=== PATIENT | male | born 1965 | race Caucasian/White ===

== ENCOUNTER → 2017-07-15 15:54 | Outpatient (CLI) | payer BC, SELFPAY ==
--- NOTE | 2017-07-15 12:27 | COLBX_PTH ---
PATIENT: DORIS ALLRED LOC: [facility] U#:[id number] AGE/SX: 59/M ROOM: RE07/15/[address]: Dr. Rick Butt MD : 1965 BED: DIS: SPEC #: [id number] RECD: 07/15/17 15:40 STATUS: DESIREE JB #: [id number] HOWARD: 07/15/17 12:[address]: Rick Butt DEPT: SURGICAL PATHOLOGY RECD BY: Stephanie Thomas ENTERED: 07/18/17 15:56 SP TYPE: COLON BX OTHR DR: FABIAN Tissues: Sigmoid colon biopsy Procedures: Surgery Specimen Level IV HEADER OPERATION: Colonoscopy with biopsies PRE-OP DIAGNOSIS: Screening / polyp TISSUE SUBMITTED: Sigmoid polyp biopsies, rule out adenoma MICROSCOPIC DIAGNOSIS Sigmoid colon polyp, biopsy: Fragments of hyperplastic polyp. AM:christine MICROSCOPIC DESCRIPTION Slides are reviewed. GROSS DESCRIPTION Received in fixative is one container labeled with the patient's name and designated sigmoid colon polyp biopsy. The specimen consists of two irregular fragments of light alanis soft tissue each measuring 0.2 x 0.2 x 0.1 cm. The specimen is totally submitted in one cassette. / SJ:christine 07/18/17 TC:5 CPT: 49930
== END ==
PROVIDERS: Visit Provider Internal Medicine Gastroenterology
DX: Z12.11 Encounter for screening for malignant neoplasm of colon (principal); K63.5 Polyp of colon
CPT/HCPCS: 88305

== ENCOUNTER → 2017-12-16 10:29 | Outpatient (CLI) | payer BC, SELFPAY ==
[2017-12-16 12:42] LABS: Anion Gap 9 (5-15); BUN 25 mg/dL (7-18); BUN/Creat Ratio 27.4 RATIO (10-20); Calcium,Total 8.9 mg/dL (8.5-10.1); Chloride 106 mmol/L (98-107); Creatinine, Serum 0.91 mg/dL (0.70-1.30); EST Glomerular Filtration Rate 93 mL/min (>60); Est Glom Filt Rate - Afr Amer 113 mL/min (>60); Glucose 90 mg/dL (74-106); Magnesium 2.3 mg/dL (1.6-2.6); Potassium 4.2 mmol/L (3.5-5.1); Sodium Level 139 mmol/L (136-145)
== END ==
PROVIDERS: Visit Provider Physician Assistant Medical
DX: E83.42 Hypomagnesemia (principal); R00.2 Palpitations
CPT/HCPCS: 36415; 80048; 83735

== ENCOUNTER → 2018-01-06 10:00 | Outpatient (CLI) | payer BC, SELFPAY | PROVIDERS: Family Provider Nurse Practitioner; PCP Nurse Practitioner; Referring Provider Nurse Practitioner; Visit Provider Nurse Practitioner | DX: R89.9 Unspecified abnormal finding in specimens from other organs, systems and tissues (principal) | CPT/HCPCS: 84132 ==

== ENCOUNTER → 2018-07-10 10:32 | Outpatient (CLI) | payer BC, SELFPAY ==
[2018-06-05 11:13] VITALS: BMI 32.1
--- NOTE | 2018-07-10 10:39 | RAD_ITS ---
STUDY: X-RAY - THORACIC SPINE REASON FOR EXAM: Male, 52 years old. Right-sided pain. No known injury TECHNIQUE: 3 view(s) of the thoracic spine were obtained. COMPARISON: None. FINDINGS: There is straightening of the normal thoracic kyphosis. There is no substantial scoliosis. Normal thoracic vertebrae and endplates. Normal disc space heights. The soft tissue structures are unremarkable. RAD/Thoracic Spine 3 Views IMPRESSION: Straightening of the thoracic spine which could be due to muscle spasm. No demonstrated acute fracture. Electronically Signed: Prateek Sauceda MD at 10:06 EDT Tel , Service support ,
--- NOTE | 2018-07-10 10:39 | RAD_ITS ---
STUDY: X-RAY CHEST REASON FOR EXAM: Male, 52 years old. Right-sided pain. TECHNIQUE: PA and lateral views of the chest. COMPARISON: December 21, 2016 FINDINGS: The lungs are clear and expanded. There is no demonstrated pleural abnormality. Normal size heart. Normal mediastinum and jordon. Normal visualized pulmonary arteries. Normal visualized aortic arch and descending thoracic aorta. Normal visualized thoracic spine. Normal visualized ribs, clavicles, and shoulders. There is no demonstrated abnormality of the visualized soft tissue structures of the upper abdomen. RAD/Chest PA and Lateral IMPRESSION: No acute cardiopulmonary process. Electronically Signed: Giselle Kay MD at 18:59 EDT Tel , Service support ,
== END ==
PROVIDERS: Family Provider Nurse Practitioner; PCP Nurse Practitioner; Referring Provider Nurse Practitioner Gerontology; Visit Provider Nurse Practitioner Gerontology
DX: M54.6 Pain in thoracic spine (principal); R05 Cough
CPT/HCPCS: 71046; 72072

== ENCOUNTER → 2019-08-13 14:37 | Outpatient (CLI) | payer BC, SELFPAY ==
[2018-06-05 11:13] VITALS: BMI 32.1
--- NOTE | 2019-08-13 14:40 | CT_ITS ---
STUDY: LOW DOSE CT LUNG CANCER SCREENING REASON FOR EXAM: Male, 53 years old. Nicotine dependence, smokes 2 cigars per day x 10 years, chronic bronchitis, hypertension, [place] 15 years ago, coronary stent x 1, 250lbs. RADIATION DOSAGE (If Supplied By Facility): CTDIvol = ( 4.02 ) mGy, DLP = ( 155.52 ) mGycm TECHNIQUE: No contrast was administered. Low dose technique was utilized (average mAS-38 and kVp 120). 1.25 mm axial source images with a slice interval of 1.25-mm were reconstructed in lung windows. 2.5 mm axial source images with a slice interval of 2.5-mm were reconstructed in lung windows. 5.0 mm axial source images with a slice interval of 5.0-mm were reconstructed in soft tissue windows. Nodule measured using lung windows on PACS and/or independent workstation with automated measurement of minimum and maximum diameter. Nodule measurement reported as average diameter rounded to the nearest whole number. Growth is defined as an increase ins size of greater than 1.5 mm. COMPARISON: None. NODULES: No nodules are seen. Aorta: Unremarkable. Coronary arteries: Coronary artery calcification. Mediastinal nodes: Calcified right hilar lymph nodes as well as the pretracheal lymph nodes. Other chest and abdominal findings: CT/Low Dose CT Lung Screening IMPRESSION: Lung-RADS category 2 - Continue annual screening with LDCT in 12 months. IMPORTANT NOTES FOR USE: ACR Lung-RADS Version 1.0 Assessment Categories Release Date: August 06, 2013 Category: Coded 0-4 bases on nodule(s) with highest degree of suspicion. Negative screen is defined as categories 1 and 2; a positive screen is defined as categories 3 and 4. Category 3 and 4A nodules that are unchanged on interval CT should be coded as category 2, and individuals returned to screening in 12 months. Category 4X: Category 3 or 4 nodules with additional imaging findings that increase the suspicion of lung cancer, such as spiculation, GGN that doubles in size in 1 year, enlarged lymph notes, etc. Category Modifiers: S (significant finding unrelated to lung cancer) and C (prior history of treated lung cancer) may be added to the 0-4 Lung-RADS Electronically Signed: Wild Bell, at 15:30 EDT , Service support ,
== END ==
PROVIDERS: PCP Nurse Practitioner; Visit Provider Nurse Practitioner
DX: F17.200 Nicotine dependence, unspecified, uncomplicated (principal)
CPT/HCPCS: G0297

== ENCOUNTER → 2021-01-07 00:46 | Outpatient (CLI) | payer BC, SELFPAY ==
[2021-01-07 01:39] LABS: Erythrocyte Sedimentation Rate < 1 mm/hr (0-20)
[2021-01-07 01:41] LABS: Absolute Lymphocyte Count 1.94 X10^3/uL (0.83-4.51); Absolute Neutrophil Count 3.8 X10^3/uL (2.0-7.7); Basophil# 0.05 X10^3/uL; Basophil% 0.7 % (0-1); Eosinophil# 0.23 X10^3/uL; Eosinophils% 3.4 % (0-5); Hematocrit 47.4 % (40-54); Hemoglobin 16.4 g/dL (13.0-16.5); Lymphocyte # 1.94 X10^3/ul (0.83-4.51); Mean Corp Hgb Conc 34.6 g/dL (32-36); Mean Corpuscular Hgb 32.3 pg (27.0-32.0); Mean Corpuscular Volume 93.5 fL (80-94); Mean Platelet Vol. 10.3 fl (6.2-12.0); Monocyte# 0.66 X10^3/uL; Monocyte% 9.9 % (0-10); NRBC Flagged by Analyzer 0 % (0-5); Neutrophil # 3.77 X10^3/uL (2.7-7.7); Neutrophil % 56.6 % (47-70); Platelet Count 227 K/mm3 (150-450); RBC Distribution Width CV 13.2 % (11.6-14.6); RBC Distribution Width SD 44.8 fl (35.1-43.9); Red Blood Count 5.07 M/mm3 (4.6-6.2); White Blood Count 6.7 K/mm3 (4.4-11.0)
[2021-01-07 01:57] LABS: ALB/GLOB Ratio 1.4 RATIO (0.9-2.4); AST(SGOT) 34 U/L (15-37); Alanine Aminotransfer ALT/SGPT 99 U/L (16-61); Albumin, Serum 4.1 g/dL (3.2-5.0); Alkaline Phosphatase 44 U/L (45-117); Anion Gap 10 (5-15); BUN 16 mg/dL (7-18); BUN/Creat Ratio 19.4 RATIO (10-20); CRP < 2.90 mg/L (0.0-3.0); Calcium,Total 8.9 mg/dL (8.5-10.1); Chloride 104 mmol/L (98-107); Creatinine, Serum 0.82 mg/dL (0.70-1.30); EST Glomerular Filtration Rate 103 mL/min (>60); Est Glom Filt Rate - Afr Amer 125 mL/min (>60); Globulin 2.9 g/dL (2.2-4.2); Glucose 132 mg/dL (74-106); Potassium 4.5 mmol/L (3.5-5.1); Sodium Level 136 mmol/L (136-145); Thyroid Stim Hormone (TSH) 2.53 uIU/mL (0.358-3.74)
[2021-01-09 09:49] LABS: ANTINUCLEAR ANTIBODIES DIRECT Negative (Negative)
== END ==
PROVIDERS: PCP Nurse Practitioner; Referring Provider Nurse Practitioner; Visit Provider Nurse Practitioner
DX: I73.00 Raynaud's syndrome without gangrene (principal)
CPT/HCPCS: 80053; 84443; 85025; 85652; 86038; 86140; 86225; 86235

== ENCOUNTER → 2022-12-22 | Outpatient (CLI) | payer BC, SELFPAY ==
[2022-12-22 21:21] LABS: Basophil# 0.05 X10^3/uL; Basophil% 0.7 % (0-1); Eosinophil# 0.11 X10^3/uL; Eosinophils% 1.4 % (0-5); Hematocrit 48.7 % (40-54); Hemoglobin 15.9 g/dL (13.0-16.5); Lymphocyte % 23.7 % (19-41); Mean Corp Hgb Conc 32.6 g/dL (32-36); Mean Corpuscular Hgb 30.6 pg (27.0-32.0); Mean Corpuscular Volume 93.7 fL (80-94); Mean Platelet Vol. 9.5 fl (6.2-12.0); Monocyte# 0.66 X10^3/uL; Monocyte% 8.7 % (0-10); NRBC Flagged by Analyzer 0 % (0-5); Neutrophil # 4.95 X10^3/uL (2.7-7.7); Neutrophil % 65.1 % (47-70); Platelet Count 251 K/mm3 (150-450); RBC Distribution Width CV 13.2 % (11.6-14.6); RBC Distribution Width SD 45.1 fl (35.1-43.9); White Blood Count 7.6 K/mm3 (4.4-11.0)
[2022-12-22 21:52] LABS: ALB/GLOB Ratio 1.4 RATIO (0.9-2.4); AST(SGOT) 28 U/L (15-37); Alanine Aminotransfer ALT/SGPT 70 U/L (16-61); Albumin, Serum 4.3 g/dL (3.2-5.0); Alkaline Phosphatase 42 U/L (45-117); Anion Gap 2 (5-15); BUN 14 mg/dL (7-18); BUN/Creat Ratio 14.6 RATIO (10-20); Chloride 106 mmol/L (98-107); Cholesterol 161 mg/dL (200); Creatinine, Serum 0.96 mg/dL (0.70-1.30); EST Glomerular Filtration Rate 86 mL/min (>60); Est Glom Filt Rate - Afr Amer 105 mL/min (>60); Glucose 114 mg/dL (74-106); High Density Lipoprotein 77 mg/dL; PSA,Total - Annual Screen 0.34 ng/mL (0.00-4.00); Potassium 5.1 mmol/L (3.5-5.1); Protein, Total 7.3 g/dL (6.4-8.2); Sodium Level 139 mmol/L (136-145); Triglycerides 72 mg/dL; Very Low Density Lipoprotein 14 mg/dL (5-40)
[2022-12-27 20:17] LABS: Thyroid Stim Hormone (TSH) 2.92 uIU/mL (0.358-3.74)
== END | disposition home or self-care (01) ==
PROVIDERS: PCP Nurse Practitioner; Referring Provider Nurse Practitioner; Visit Provider Nurse Practitioner
DX: I10 Essential (primary) hypertension (principal); E78.5 Hyperlipidemia, unspecified; R35.0 Frequency of micturition
CPT/HCPCS: 80053; 80061; 84153; 84443; 85025; G0103

== ENCOUNTER → 2024-02-22 | Outpatient (CLI) | payer BC, SELFPAY ==
[2024-02-22 22:31] LABS: Absolute Lymphocyte Count 1.57 X10^3/uL (0.83-4.51); Absolute Neutrophil Count 4.1 X10^3/uL (2.0-7.7); Basophil# 0.06 X10^3/uL; Basophil% 0.9 % (0-1); Eosinophil# 0.05 X10^3/uL; Eosinophils% 0.8 % (0-5); Hematocrit 44.5 % (40-54); Hemoglobin 15.2 g/dL (13.0-16.5); Lymphocyte # 1.57 X10^3/ul (0.83-4.51); Lymphocyte % 24.6 % (19-41); Mean Corp Hgb Conc 34.2 g/dL (32-36); Mean Corpuscular Hgb 31.3 pg (27.0-32.0); Mean Corpuscular Volume 91.6 fL (80-94); Mean Platelet Vol. 9.4 fl (6.2-12.0); Monocyte# 0.59 X10^3/uL; Monocyte% 9.3 % (0-10); NRBC Flagged by Analyzer 0 % (0-5); Neutrophil # 4.08 X10^3/uL (2.7-7.7); Neutrophil % 64.1 % (47-70); Platelet Count 230 K/mm3 (150-450); Red Blood Count 4.86 M/mm3 (4.6-6.2); White Blood Count 6.4 K/mm3 (4.4-11.0)
[2024-02-22 22:49] LABS: ALB/GLOB Ratio 1.4 RATIO (0.9-2.4); AST(SGOT) 25 U/L (15-37); Alanine Aminotransfer ALT/SGPT 50 U/L (16-61); Alkaline Phosphatase 42 U/L (45-117); Anion Gap 3 (5-15); BUN 15 mg/dL (7-18); BUN/Creat Ratio 16.2 RATIO (10-20); Calcium,Total 8.8 mg/dL (8.5-10.1); Chloride 108 mmol/L (98-107); Cholesterol 143 mg/dL (200); Creatinine, Serum 0.93 mg/dL (0.70-1.30); EST Glomerular Filtration Rate 89 mL/min (>60); Est Glom Filt Rate - Afr Amer 108 mL/min (>60); Globulin 2.8 g/dL (2.2-4.2); Glucose 106 mg/dL (74-106); High Density Lipoprotein 68 mg/dL; PSA,Total - Annual Screen 0.37 ng/mL (0.00-4.00); Potassium 4.8 mmol/L (3.5-5.1); Protein, Total 6.8 g/dL (6.4-8.2); Sodium Level 140 mmol/L (136-145); Triglycerides 51 mg/dL; Very Low Density Lipoprotein 10 mg/dL (5-40)
== END | disposition home or self-care (01) ==
PROVIDERS: Referring Provider Nurse Practitioner; Visit Provider Nurse Practitioner
DX: I10 Essential (primary) hypertension (principal); E83.42 Hypomagnesemia; E78.5 Hyperlipidemia, unspecified; I25.10 Atherosclerotic heart disease of native coronary artery without angina pectoris
CPT/HCPCS: 80053; 80061; 84153; 85025; G0103

== ENCOUNTER → 2024-06-11 | Outpatient (CLI) | payer BC, SELFPAY ==
--- NOTE | 2024-06-11 14:00 | MRI_ITS ---
PROCEDURE: SPINE LUMBAR (ROUTINE) REASON FOR EXAM: LUMBAR PAIN TECHNIQUE: Multisequence multiplanar MRI of the lumbar spine was performed without IV contrast. COMPARISON: 05/08/2024. FINDINGS: Vertebral body heights are preserved. No suspicious marrow signal abnormality. Grossly similar s shaped lumbar scoliosis. Similar trace grade 1 likely degenerative retrolisthesis at L3-L4. Conus medullaris terminates normally at the L1-L2 disc space. Unremarkable appearance of the cauda equina, allowing for crowding related to spinal canal stenoses as below. L1-2: Diffuse disc bulging with superimposed left subarticular and foraminal disc protrusion. Mild facet arthropathy. Mild/moderate focal spinal canal stenosis. Mild left foraminal stenosis. L2-3: Diffuse disc bulging with superimposed right predominantly paracentral, subarticular, and foraminal disc protrusion. Mild facet arthropathy. [id number] focal spinal canal stenosis with virtually complete effacement of CSF. Mild right foraminal stenosis. L3-4: Retrolisthesis as above with some disc uncovering. Diffuse disc bulging asymmetric to the left, with moderate loss of disc height. Severe focal spinal canal stenosis with complete effacement of CSF. Facet arthropathy and ligamentum flavum hypertrophy with tiny facet joint effusions. Moderate left and mild right foraminal stenosis. Complete effacement of left lateral recess and narrowing of right lateral recess. L4-5: Diffuse disc bulging asymmetric to the left. Facet arthropathy with tiny effusions. Mild focal spinal canal stenosis. Slight narrowing of the left lateral recess. Mild/moderate bilateral foraminal stenoses. L5-S1: No significant spinal canal or foraminal stenosis. Facet arthropathy with tiny effusion on the left. 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 MRI/Spine Lumbar (Routine) IMPRESSION: 1. Multilevel spondylosis as detailed, with spinal canal stenoses up to severe at L3-L4, and foraminal stenoses up to moderate on the left at that level. 2. Additional description as above. Reading Location: [facility]
== END | disposition home or self-care (01) ==
LOC: MRI 15:08
PROVIDERS: Referring Provider Student in an Organized Health Care Education/Training Program; Visit Provider Student in an Organized Health Care Education/Training Program
DX: M54.50 Low back pain, unspecified (principal)
CPT/HCPCS: 72148

== ENCOUNTER → 2024-10-19 | Outpatient (CLI) | payer BC, SELFPAY ==
--- OUTSIDE RECORDS SUMMARY | 2024-10-19 23:05 | XMS RPT_ITS | CCD ---
Author Organization [facility] Care Team Providers Care Surveillance Camera Technician Name Role Phone Chasity Verma Unavailable [facility] Unavailable Rex Calderon Unavailable Rick Butt Unavailable Fast, Frances A Unavailable Freddy Smith Unavailable Unavailable Manchak, Barbara Unavailable Unavailable Slarb, Briana Unavailable Unavailable Barbara Ascencio Unavailable Unavailable Unavailable Unavailable Arianna Shafer Unavailable Unavailable Chasity Verma Attending Unavailable Gavin, Frances A Referring Unavailable Chasity Verma Consulting Unavailable Ary Cornell Unavailable Unavailable Unavailable Unavailable FELIPE Forde Unavailable Unavailable Breann Garcia Unavailable Freddy Smith Unavailable Unavailable Manchaangel, Barbara Unavailable Unavailable Freddy Dodge Unavailable Unavailable Ciesa Chasity KINCAID Unavailable [facility] Unavailable Rex Calderon MD Unavailable Dr. Rick Butt Unavailable Fast DO, Frances A Unavailable Freddy Dodge LPN Unavailable Unavailable Manchak LESLEE, Barbara Unavailable Unavailable Slarb PURCHASING ASSOCIATE, Briana Unavailable Unavailable Breann Garcia MD Unavailable Barbara Ascencio Unavailable Unavailable Unavailable Unavailable Devin PELAEZ.Jordyn KINCAID Primary Care Provide r Robson Beck MD Unavailable [phone] Andrea Aguilar RN Unavailable Moreno RAMÍREZ, Man Torres Unavailable Chasity Verma Unavailable Frances Alonso DO Unavailable Breann Garcia MD Unavailable Devin BARREL TESTER AND DRAINER.[facility], Jordyn L Primary Care Provide r Robson Beck MD Unavailable Man Mayer MD Unavailable Devin BARREL TESTER AND DRAINER.[facility], Jordyn L Primary Care Provide r Robson Beck MD Unavailable [phone] Devin BARREL TESTER AND DRAINER.[facility], Jordyn Primary Care Provide r Robson Beck MD Unavailable Man Mayer MD Unavailable Devin BARREL TESTER AND DRAINER.[facility], Jordyn L Primary Care Provide r Unavailable Primary Care Provider Unavailabl e [facility], [facility] Primary Care Provider Unav ailable ANIA MOTTA Attending Unavailable ANIA MOTTA Referring Unavailable BILLY BARROS Attending Unavailable BILLY BARROS Referring Unavailable [facility], [facility] Primary Care Unavailable Devin BARREL TESTER AND DRAINER.Jordyn KINCAID L Primary Care Provide r ROBSON BECK Referring Unavailable ROBSON BECK Attending Unavailable BELTRAN, JORDYN L Primary Care Unavailable NITIN NUÑEZ Attending Unavailable BELTRAN, JORDYN L Primary Care Unavailable BELTRAN, JORDYN L Primary Care Unavailable Devin VIDEO PRODUCTION ASSISTANT, Jordyn Attending Unavailable Devin VIDEO PRODUCTION ASSISTANT, Jordyn Referring Unavailable Care Physician, No Primary Referring Unava ilable Zena Padron Attending Unavailable Care Physician, No Primary Primary Care Unava ilable Zena Padron Attending Unavailable Zena Padron Referring Unavailable Care Physician, No Primary Primary Care Unava ilable Domingo Rosa Attending Unavailable Zena Padron Attending Unavailable Jordyn Jorgensen Attending Provider Zena Chakraborty Attending Provider [phone] Shelley RAMÍREZ, Dr. Lane Attending Provider Zena Chakraborty Referring Provider [phone] Care Physician, No Primary Primary Care Provider Unavailable Allergies Allergy Classification Reported Allergen(s) Allergy Type Date of Onset Reaction(s) Facility Cholesterol Absorption Inhibitors (1 source) ezetimibe; Translations: [Zetia *ANTIHYPERLIPIDE MICS*] Drug Allergy [facility] Work Phone: (20 sources) ezetimibe; Translations: [Zetia *ANTIHYPERLIPIDE MICS*] Drug Allergy [facility] Work Phone: Comment on above: headache NEGATED: Highlighted row has been ruled out!Unclassified (1 source) Allergy to drug (finding) 3 [facility] Work Phone: NEGATED: Highlighted row has been ruled out! (1 source) Allergy to drug (finding) 3 [facility] Work Phone: Medications Current Medications Medication Drug Class(es) Dates Sig (Normalized) Sig (Original) acetaminophen 325 mg / HYDROcodone bitartrate 5 mg oral tablet (3 sources) Opioid Agonist Start: 02-07-2023 End: 02-14-2023 take 1-1.5 tablets by mouth every six hours as needed for pain HYDROcodone-acet aminophen ([place]) 5-325 MG tablet Take 1-1.5 tablets by mouth every 6 hours as needed for severe pain (7-10) for up to 7 days. Take medication at least 6-8 hours before driving/operatin g machinery. 30 tablet 0 02/07/2023 02/14/2023 Active aspirin 81 mg delayed release oral tablet (20 sources) Platelet Aggregation Inhibitor, Nonsteroidal Anti-inflammatory Drug Start: 10-21-2021 End: 10-21-2022 take 1 tablet by mouth once daily aspirin, enteric coated (ECOTRIN LOW STRENGTH) 81 mg EC tablet Take 1 tablet by mouth once daily. 90 tablet 3 10/21/2021 Active Start: 08-27-2021 End: 10-21-2021 take 1 tablet by mouth once daily at bedtime ASPIRIN 81 MG TAB Take 81 mg by mouth daily at bedtime. 0 08/27/2021 10/21/2021 Discontinued Start: 06-28-2016 take 1 tablet by lamin th once daily Aspirin 81 MG tablet,chewable Active 81 mg PO DAILY June 28, 2016 12:00am Start: 06-02-2006 End: 12-21-2016 Comment on above: This order discontin ued per [facility]. Take one(1) tablet d aily. Take by mouth daily at bedtime. Take 81 mg by mouth daily at bedtime. Take 1 tablet by lamin th once daily. atomoxetine 10 mg oral capsule (20 sources) Norepinephrine Reuptake Inhibitor Start: 09-10-19 take 3 capsules by mouth once daily atomoxetine (STRATTERA) 10 mg capsule Take 30 mg by mouth once daily. 09/09/2021 Active Start: 08-11-2021 End: 11-16-2021 Atomoxetine (Strattera) 10 m g capsule Discontinued 10 mg PO EVERY MORNING August 11, 2021 12:00am November 16, 2021 6:58pm Take 10 mg for 2 weeks and then 20 mg for 2 weeks Start: 12-05-2020 End: 06-29-2021 take 1 capsule by mouth once daily Atomoxetine 40 mg capsule Discontinued 40 mg PO DAILY December 05, 2020 4:38pm June 29, 2021 6:38pm Start: 08-09-2019 End: 12-28-2019 take 1 capsule by mouth once daily Atomoxetine (Strattera) 40 mg capsule Discontinued 40 mg PO DAILY November 21, 2019 12:00am December 28, 2019 4:13pm Start: 05-02-2018 End: 11-21-2019 take 1 capsule by mouth once daily Atomoxetine (Strattera) 18 mg capsule Discontinued 18 mg PO DAILY June 05, 2018 1:00am November 21, 2019 6:50pm Start: 04-10-2018 End: 05-02-2018 Start: 04-10-2018 End: 05-02-2018 Start: 04-10-2018 End: 05-02-2018 Start: 04-10-2018 Strattera 18 M G Oral Capsule 1 (one) Capsule in am for 2 weeks for 0 days Quantity: 14 {Capsule} Refills: 0 Ordered: 10-Apr-2018 Breann Garcia MD Start : 10-Apr-2018 Active Start: 02-18-2014 End: 01-21-2015 take 1 capsule by mouth once daily STRATTERA, 40MG (Oral Capsule) 1 Capsule daily for 0 days Quantity: 30 {Capsule} Refills: 4 Ordered: 21-Jan-2015 Norma STAHLBriana Start : 18-Feb-2014 End : 21-Jan-2015 Discontinued Comments: 08-28-13 called to Randi in [facility] Start: 11-13-2012 End: 04-26-2013 Comment on above: once wean up 08-28-13 called to Hope persaud in [facility] Take 30 mg by mouth once daily. clopidogrel 75 mg oral tablet (20 sources) [id number] Platelet Inhibitor Start: 06-29-19 End: 04-23-19 take 1 tablet by mouth once daily Clopidogrel 75 mg tablet Active 75 mg PO DAILY March 06, 2024 4:38pm Comment on above: Take 1 tablet by lamin once daily. Take 75 mg by mouth once daily. cyclobenzaprine hydrochloride 5 mg oral tablet (20 sources) Muscle Relaxant Start: 10-24-19 End: 03-06-20 take 1 tablet by mouth three times daily as needed for muscle spasms Cyclobenzaprine 5 mg tablet Active 5 mg PO THREE TIMES A DAY as needed for muscle spasm March 06, 2024 4:39pm Start: 12-05-2020 End: 06-29-2021 take 1 tablet by mouth three times daily as needed for muscle spasms Cyclobenzaprine 5 mg tablet Discontinued 5 mg PO THREE TIMES A DAY as needed for muscle spasm December 05, 2020 12:00am June 29, 2021 6:38pm Start: 07-10-2018 End: 07-24-2018 Start: 09-09-2015 End: 04-28-2016 DULoxetine 60 mg delayed release oral capsule (20 sources) Serotonin and Norepinephrine Reuptake Inhibitor Start: 07-29-2022 End: 11-29-2023 take 1 capsule by mouth once daily Duloxetine 60 mg capsule,delayed release(DR/EC) Active 60 mg PO DAILY November 29, 2023 4:01pm Start: 12-31-2021 End: 07-29-2022 take 1 capsule by mouth once daily Duloxetine 40 mg capsule,delayed release(DR/EC) Discontinued 40 mg PO DAILY December 31, 2021 12:00am July 29, 2022 3:37pm Start: 12-18-2021 End: 12-31-2021 take 1 capsule by mouth once daily Duloxetine 60 mg capsule,delayed release(DR/EC) Discontinued 60 mg PO DAILY December 18, 2021 12:00am December 31, 2021 3:12pm Start: 11-16-2021 End: 12-18-2021 take 1 capsule by mouth once daily Duloxetine 30 mg capsule,delayed release(DR/EC) Discontinued 30 mg PO daily November 16, 2021 12:00am December 18, 2021 4:28pm hydrOXYzine hydrochloride 10 mg oral tablet (1 source) Antihistamine Start: 07-29-2023 take 1 tablet by mouth three to four times daily as needed for anxiety Hydroxyzine Hcl 10 mg tablet Active 10 mg PO 3 to 4 times per day as needed for anxiety July 29, 2023 12:00am levothyroxine sodium 0.025 mg oral tablet (20 sources) l-Thyroxine Start: 04-05-2018 End: 11-29-2023 take 1 tablet by mouth once daily Levothyroxine 25 mcg tablet Active 25 ug PO DAILY November 29, 2023 4:03pm Comment on above: Take same time daily on empty stomach upon awakening Take 25 mcg by mouth daily before breakfast. Take 25 mcg by mouth daily at bedtime. [The details of the medication are not available because there are pending changes by a home health clinician.] lidocaine 0.04 mg/mg medicated patch (20 sources) Antiarrhythmic, Amide Local Anesthetic Start: 09-06-2021 lidocaine (SALONPAS) 4 % patch Apply 1 Patch as directed once daily. Cut in half and apply to each side of midsternal incision - Remove patch after 12 hours. 7 Patch 09/06/2021 Active Comment on above: Apply 1 Patch as dir ected once daily. Cut in half and apply to each side of midsternal incision - Remove patch after 12 hours. LORazepam 0.5 mg oral tablet (20 sources) Benzodiazepine Start: 11-16-2021 End: 11-29-2023 take 2 tablets by mouth once daily as needed for anxiety Lorazepam 0.5 mg tablet Active 1 mg PO DAILY NEEDED as needed for Anxiety 60 November 29, 2023 4:01pm Start: 11-16-2021 End: 11-08-2022 take 1 mg by mouth once daily as needed Lorazepam Active 1 MG PO DAILY NEEDED 60 November 08, 2022 8:12pm Start: 06-29-2021 End: 11-16-2021 take 1 tablet by mouth once daily as needed for anxiety Lorazepam 0.5 mg tablet Discontinued 0.5 mg PO DAILY NEEDED as needed for Anxiety June 29, 2021 6:41pm November 16, 2021 7:14pm Start: 06-28-2016 End: 11-21-2019 take 1 tablet by mouth once daily as needed for anxiety Lorazepam 0.5 MG tablet Discontinued 0.5 mg PO DAILY NEEDED as needed for Anxiety June 28, 2016 12:00am November 21, 2019 6:51pm Start: 06-28-2016 End: 12-16-2017 take 1 tablet by mouth once daily as needed for anxiety Lorazepam 1 MG tablet Discontinued 1 mg PO DAILY NEEDED as needed for Anxiety June 28, 2016 12:00am December 16, 2017 10:07am Comment on above: fifteen, Oarrs run Take 0.5 mg by mouth once daily as needed. [The details of the medication are not available because there are pending changes by a home health clinician.] Take 0.5 mg by mouth once daily as needed (anxiety). Do not start before September 09, 2021. magnesium oxide 400 mg oral tablet (20 sources) Start: 09-06-2021 take 1 tablet by mouth once daily Magnesium Oxide 400 mg magnesium tablet Active 400 mg PO daily April 24, 2024 1:00am Comment on above: Take 1 tablet by lamin th once daily. 24 hr metoprolol succinate 25 mg extended release oral tablet (20 sources) beta-Adrenergic Annette Start: 04-23-2024 take 1 tablet by mouth once daily Metoprolol Succinate 25 mg tablet extended release 24 hr Active 25 mg PO daily April 24, 2024 4:36pm Start: 12-18-2021 End: 04-24-2024 take 1 tablet by mouth twice daily Metoprolol Succinate 25 mg tablet extended release 24 hr Discontinued 25 mg PO TWICE A DAY 90 February 22, 2024 6:19pm April 24, 2024 4:36pm Start: 11-16-2021 End: 12-18-2021 take 1 tablet by mouth once daily Metoprolol Succinate 25 mg tablet extended release 24 hr Discontinued 25 mg PO DAILY November 16, 2021 12:00am December 18, 2021 4:35pm Start: 10-13-2021 End: 04-23-2024 take 0.5 tablet by mouth twice daily metoprolol tartrate, short acting, (LOPRESSOR) 25 mg tablet Take 0.5 tablets by mouth twice daily. 90 tablet 3 11/23/2022 04/23/2024 Discontinued Start: 09-05-2021 End: 10-13-2021 take 0.5 tablet by mouth every eight hours metoprolol tartrate, short acting, (LOPRESSOR) 25 mg tablet Take 0.5 tablets by mouth every 8 hours. 60 tablet 1 09/05/2021 10/13/2021 Discontinued (Adjust Sig - Block E-Cancel) Start: 11-21-2019 End: 12-18-2021 take 1 tablet by mouth once daily Metoprolol Succinate 50 mg tablet extended release 24 hr Discontinued 50 mg PO DAILY December 05, 2020 4:39pm December 18, 2021 4:32pm Start: 09-09-2018 take 1 tablet by lamin th once daily Toprol XL 50 MG Oral Tablet Extended Release 24 Hour 1 (one) Tablet daily for 30 days Quantity: 30 {Tablet} Refills: 2 Ordered: 09-Sep-2018 Chasity Verma CNP, CNP, Mary E Start : 09-Sep-2018 Active Comments: increased dose on 01/02/18 Start: 08-04-2018 take 1 tablet by lamin th once daily Toprol XL 50 MG Oral Tablet Extended Release 24 Hour 1 (one) Tablet daily for 30 days Quantity: 30 {Tablet} Refills: 2 Ordered: 04-Aug-2018 Chasity Verma CNP, CNP, Mary E Start : 04-Aug-2018 Active Comments: increased dose on 01/02/18 Start: 01-06-2018 take 1 tablet by lamin th once daily Toprol XL 50 MG Oral Tablet Extended Release 24 Hour 1 (one) Tablet daily for 30 days Quantity: 30 {Tablet} Refills: 2 Ordered: 06-Jan-2018 Chasity Verma CNP, CNP, Mary E Start : 06-Jan-2018 Active Comments: increased dose on 01/02/18 Start: 06-28-2016 End: 11-21-2019 take 1 tablet by mouth once daily Metoprolol Succinate 25 MG tablet extended release 24 hr Discontinued 25 mg PO DAILY June 28, 2016 12:00am November 21, 2019 7:04pm Comment on above: increased dose on Take 50 mg by mouth once daily. Take 1 tablet by lamin th once daily. Take 0.5 tablets by mouth every 8 hours. Take 0.5 tablets by mouth twice daily. Multiple Vitamin (multivitamin) capsule (10 sources) Multiple Vitamin (multivitamin) capsule daily. 0 Active nitroglycerin 0.4 mg sublingual tablet (20 sources) Nitrate Vasodilator Start: 04-01-20 Nitroglycerin 0.4 mg tablet, sublingual Active 0.4 mg SL Q5M as needed July 16, 2021 12:00am do not exceed 3 doses per episode Comment on above: Dissolve 1 tablet un yolanda the tongue every 5 minutes as needed for chest pain. pantoprazole 40 mg delayed release oral tablet (20 sources) Proton Pump Inhibitor Start: 09-06-19 End: 11-29-19 take 1 tablet by mouth once daily Pantoprazole 40 mg tablet,delayed release (DR/EC) Active 40 mg PO DAILY November 29, 2023 4:01pm Start: 05-25-2012 End: 05-25-2012 Start: 02-27-2009 End: 03-11-2009 Comment on above: Take 1 tablet by lamin th once daily. predniSONE 10 mg oral tablet (20 sources) Start: 04-24-2024 take 2 tablets by mouth twice daily as needed for pain, then take 1 tablet by mouth twice daily as needed for pain, then take 0.5 tablet by mouth once daily as needed for pain Prednisone 10 mg tablet Active 20 mg PO TWICE A DAY as needed for back pain 08 08April 24, 2024 4:33pm 2 po bid 4D,1 po bid for 4 D, 1 po qd for 4D 1/2 po qd for2 D Start: 03-06-2024 End: 03-10-2024 take 2 tablets by mouth twice daily as needed for pain, then take 1 tablet by mouth twice daily as needed for pain, then take 0.5 tablet by mouth once daily as needed for pain Prednisone 10 mg tablet Discontinued 20 mg PO TWICE A DAY as needed for back pain 30 4 March 06, 2024 1:00am March 09, 2024 1:00am March 10, 2024 1:14am 2 po bid 4D,1 po bid for 4 D, 1 po qd for 4D 1/2 po qd for2 D Start: 10-24-2023 End: 11-29-2023 take 2 tablets by mouth once daily Prednisone 20 mg tablet Discontinued 40 mg PO DAILY October 24, 2023 7:37pm November 29, 2023 4:04pm Start: 09-20-2022 End: 09-24-2022 take 2 tablets by mouth twice daily as needed, then take 1 tablet by mouth twice daily as needed, then take 0.5 tablet by mouth once daily as needed Prednisone 10 mg tablet Discontinued 20 mg PO TWICE A DAY as needed for poison meliza 30 September 20, 2022 12:00am September 23, 2022 12:00am September 24, 2022 12:05am 2 po bid 4D,1 po bid for 4 D, 1 po qd for 4D 1/2 po qd for2 D Start: 09-20-2022 End: 09-24-2022 Prednisone Discontinued 20 M G PO TWICE A DAY 30 September 20, 2022 12:00am September 24, 2022 12:05am 2 po bid 4D,1 po bid for 4 D, 1 po qd for 4D 1/2 po qd for2 D Start: 08-09-2022 End: 09-20-2022 take 2 tablets by mouth once daily Prednisone 20 mg tablet Discontinued 40 mg PO DAILY August 09, 2022 12:00am September 20, 2022 5:53pm Start: 08-09-2022 End: 09-20-2022 take 40 mg by mouth once daily Prednisone Discontinued 40 MG PO DAILY August 09, 2022 12:00am September 20, 2022 5:53pm Start: 12-28-2019 End: 01-05-2021 take 2 tablets by mouth once daily Prednisone 20 mg tablet Discontinued 40 mg PO DAILY December 05, 2020 12:00am January 05, 2021 6:12pm Start: 12-28-2019 End: 01-05-2021 take 40 mg by mouth once daily Prednisone Discontinued 40 MG PO DAILY December 05, 2020 12:00am January 05, 2021 6:12pm Start: 05-15-2019 End: 06-18-2019 Start: 06-05-2018 End: 06-15-2018 take 2 tablets by mouth once daily Prednisone 10 mg tablet Discontinued 20 mg PO DAILY 28 01June 05, 2018 1:00am June 14, 2018 1:00am June 15, 2018 1:08am Start: 06-05-2018 End: 06-15-2018 take 20 mg by mouth once daily Prednisone Discontinued 20 MG PO DAILY 28 01June 05, 2018 1:00am June 15, 2018 1:08am Start: 04-25-2018 End: 07-10-2018 PredniSONE 10 MG Oral Tablet 1 (one) Tablet bid x 3 days for 0 days Quantity: 6 {Tablet} Refills: 0 Ordered: 10-Jul-2018 Freddy Smith Start : 25-Apr-2018 End : 10-Jul-2018 Inactive Comments: with food in am Start: 11-23-2017 End: 01-02-2018 PredniSONE 10 MG Oral Tablet 1 (one) Tablet bid x 3 days for 0 days Quantity: 6 {Tablet} Refills: 0 Ordered: 02-Jan-2018 Ary Cornell LPN Start : 23-Nov-2017 End : 02-Jan-2018 Inactive Comments: with food in am Start: 11-03-2016 End: 11-10-2016 Start: 11-03-2016 End: 11-10-2016 take 3 tablets by mouth once daily at mealtime PredniSONE 10 MG Oral Tablet 3 (three) Tablet daily for 7 days Quantity: 21 {Tablet} Refills: 0 Ordered: 03-Nov-2016 Chasity Verma CNP E Luci KINCAID, Mallory Start : 03-Nov-2016 End : 10-Nov-2016 Inactive Comments: with food Start: 11-13-2012 End: 11-13-2012 Start: 11-13-2012 End: 11-13-2012 take 2 tablets by mouth once daily, then take 1 tablet by mouth once daily, then take 0.5 tablet by mouth once daily PREDNISONE, 20MG (Oral Tablet) 1 Tablet uad for 0 days Refills: 0 Ordered: 13-Nov-2012 Frances Alonso DO Start : 13-Nov-2012 End : 13-Nov-2012 Discontinued Comments: 2 a d for 3 d, 1 a d for 3d, 1/2 a d for3 d Start: 04-07-2009 End: 04-10-2009 Start: 04-07-2009 End: 04-10-2009 PREDNISONE (BRENNAN), 10MG (Oral Tablet) 2 (two) Tablet pills for 3 days Refills: 0 Ordered: 07-Apr-2009 Fast DO, Frances Torres Start : 07-Apr-2009 End : 10-Apr-2009 Inactive Comment on above: with food in am 2 a d for 3 d, 1 a d for 3d, 1/2 a d for3 d with food ramipril 10 mg oral capsule (20 sources) Angiotensin Converting Enzyme Inhibitor Start: take 1 capsule by mouth once daily ramipril (ALTACE) 5 mg capsule Indications: Essential hypertension Take 1 capsule by mouth once daily. 90 capsule 3 07/19/2022 Active Start: 06-25-2020 End: 07-16-2021 take 2 capsules by mouth once daily ramipril (ALTACE) 10 mg capsule Indications: Essential hypertension Take 2 capsules by mouth once daily. 60 capsule 5 06/25/2020 07/16/2021 Discontinued Start: 01-03-2020 End: 10-07-2023 take 1 capsule by mouth once daily Ramipril 10 mg capsule Active 10 mg PO DAILY 90 October 07, 2023 2:53pm Start: 07-04-2019 take 1 capsule by mo [facility] once daily Ramipril 10 MG Oral Capsule 1 (one) Capsule daily for 0 days Quantity: 30 {Capsule} Refills: 5 Ordered: 04-Jul-2019 Chasity Verma CNP, CNP, Mary E Start : 04-Jul-2019 Active Start: 01-13-2019 take 1 capsule by mo uth once daily Ramipril 10 MG Oral Capsule 1 (one) Capsule daily for 0 days Quantity: 30 {Capsule} Refills: 5 Ordered: 13-Jan-2019 Chasity Verma CNP, CNP, Mary E Start : 13-Jan-2019 Active Start: 06-28-2016 End: 12-05-2020 take 1 capsule by mouth once daily Ramipril 10 MG capsule Discontinued 10 mg PO DAILY June 28, 2016 12:00am December 05, 2020 4:42pm Start: 11-12-2015 End: 12-12-2015 Comment on above: Take 2 capsules by m outh once daily. Take 1 capsule by mo uth once daily. tamsulosin hydrochloride 0.4 mg oral capsule (1 source) alpha-Adrenergic Annette Start: 4 take 1 capsule by mouth once daily Tamsulosin 0.4 mg capsule Active 0.4 mg PO DAILY July 29, 2023 12:00am Completed/Discontinued Medications Medication Drug Class(es) Dates Sig (Normalized) Sig (Original) 200 actuat albuterol 0.09 mg/actuat dry powder inhaler (20 sources) beta2-Adrenergic Agonist Start: 05-15-2019 Start: 05-15-2019 take 2 puff(s) by in halation three times daily ProAir RespiClick 108 (90 Base) MCG/ACT Inhalation Aerosol Powder Breath Activated 2 (two) Puff tid or qid for 0 days Quantity: 1 {Inhaler} Refills: 0 Ordered: 15-May-2019 Chasity Verma CNP, CNP, Mary E Start : 15-May-2019 Active Start: 04-25-2018 take 2 puff(s) by in halation three times daily ProAir RespiClick 108 (90 Base) MCG/ACT Inhalation Aerosol Powder Breath Activated 2 (two) Puff Puff tid for 0 days Quantity: 1 {Inhaler} Refills: 0 Ordered: 25-Apr-2018 Freddy Smith Start : 25-Apr-2018 Active Start: 11-19-2016 End: 09-06-2017 Start: 11-19-2016 End: 09-06-2017 take 2 puff(s) by inhalation three times daily ProAir HFA 108 (90 Base) MCG/ACT Inhalation Aerosol Solution 2 (two) Puff tid for 0 days Quantity: 1 {Inhaler} Refills: 3 Ordered: 06-Sep-2017 Briana Green LPN Start : 19-Nov-2016 End : 06-Sep-2017 Inactive Start: 01-27-2009 End: 03-27-2010 Start: 01-27-2009 End: 03-27-2010 ALBUTEROL SULFATE HFA, 108 ( 90 Base)MCG/ACT (Inhalation Aerosol Solution) 2 (two) Aerosol Soln qid prn for 0 days Quantity: 1 {Aerosol_Soln} Refills: 1 Ordered: 27-Jan-2009 FELIPE Forde Start : 27-Jan-2009 End : 27-Mar-2010 Discontinued Comments: This order discontinued per [facility]. Start: 05-31-2008 End: 03-27-2010 Start: 05-31-2008 End: 03-27-2010 PROVENTIL HFA, 108 (90 Base)MCG/ACT (Inhalation Aerosol Solution) 2 (two) Aerosol Soln qid prn for 0 days Quantity: 1 {Aerosol_Soln} Refills: 1 Ordered: 27-Mar-2010 FELIPE Forde LPN Start : 02-Jan-2010 End : 27-Mar-2010 Inactive Comment on above: This order discontin ued per [facility]. ALBUTEROL SULFATE HFA, 108 (90 Base)MCG/ACT (Inhalation Aerosol Solution) (8 sources) Start: 01-28-20 End: 03-27-20 10 ALBUTEROL SULFATE HFA, 108 (90 Base)MCG/ACT (Inhalation Aerosol Solution) 2 (two) Aerosol Soln qid prn for 0 days Quantity: 1 {Aerosol_Soln} Refills: 1 Ordered: 27-Jan-2009 FELIPE Forde LPN Start : 27-Jan-2009 End : 27-Mar-2010 Discontinued Comments: This order discontinued per -. Comment on above: This order discontin ued per -. amLODIPine 5 mg oral tablet (2 sources) Dihydropyridine Calcium Channel Annette Start: 01-07-20 End: 06-30-19 take 1 tablet by mouth twice daily Amlodipine 5 mg tablet Discontinued 5 mg PO TWICE A DAY January 06, 2021 12:00am June 29, 2021 6:37pm amoxicillin 875 mg / clavulanate 125 mg oral tablet (20 sources) Penicillin-class Antibacterial Start: 02-22-20 End: 03-06-20 Amoxicillin-Pot Clavulanate 875-125 mg tablet Discontinued 1 {tbl} PO TWICE A DAY February 22, 2024 1:00am March 06, 2024 4:39pm Start: 09-26-2023 End: 10-24-2023 Amoxicillin-Pot Clavulanate 875-125 mg tablet Discontinued 1 {tbl} PO TWICE A DAY September 26, 2023 4:50pm October 24, 2023 7:45pm Start: 04-19-2023 End: 06-22-2023 Amoxicillin-Pot Clavulanate 875-125 mg tablet Discontinued 1 {tbl} PO TWICE A DAY April 19, 2023 1:00am June 22, 2023 6:32pm Start: 01-04-2023 End: 01-11-2023 Amoxicillin-Pot Clavulanate 875-125 mg tablet Discontinued 1 {tbl} PO TWICE A DAY January 04, 2023 5:51pm January 11, 2023 12:33pm Start: 06-03-2022 End: 06-29-2022 Amoxicillin-Pot Clavulanate 875-125 mg tablet Discontinued 1 {tbl} PO TWICE A DAY June 03, 2022 1:00am June 29, 2022 11:37am Start: 06-03-2022 End: 06-29-2022 take 1 tablet by mouth twice daily Amoxicillin-Pot Clavulanate Discontinued 1 TABLET PO TWICE A DAY June 03, 2022 1:00am June 29, 2022 11:37am Start: 01-05-2021 End: 06-29-2021 Amoxicillin-Pot Clavulanate 875-125 mg tablet Discontinued 1 {tbl} PO TWICE A DAY January 05, 2021 12:00am June 29, 2021 6:37pm Start: 01-05-2021 End: 06-29-2021 take 1 tablet by mouth twice daily Amoxicillin-Pot Clavulanate Discontinued 1 TABLET PO TWICE A DAY January 05, 2021 12:00am June 29, 2021 6:37pm Start: 12-28-2019 End: 12-05-2020 Amoxicillin-Pot Clavulanate 875-125 mg tablet Discontinued 1 {tbl} PO TWICE A DAY December 28, 2019 4:14pm December 05, 2020 4:36pm Start: 12-28-2019 End: 12-05-2020 take 1 tablet by mouth twice daily Amoxicillin-Pot Clavulanate Discontinued 1 TABLET PO TWICE A DAY December 28, 2019 4:14pm December 05, 2020 4:36pm Start: 06-05-2018 End: 11-21-2019 Amoxicillin-Pot Clavulanate 875-125 mg tablet Discontinued 1 {tbl} PO TWICE A DAY June 05, 2018 1:00am November 21, 2019 6:49pm Start: 06-05-2018 End: 11-21-2019 take 1 tablet by mouth twice daily Amoxicillin-Pot Clavulanate Discontinued 1 TABLET PO TWICE A DAY June 05, 2018 1:00am November 21, 2019 6:49pm Start: 11-11-2017 End: 12-16-2017 Amoxicillin-Pot Clavulanate 875-125 mg tablet Discontinued 1 {tbl} PO TWICE A DAY November 11, 2017 12:00am December 16, 2017 10:06am Start: 11-11-2017 End: 12-16-2017 take 1 tablet by mouth twice daily Amoxicillin-Pot Clavulanate Discontinued 1 TABLET PO TWICE A DAY November 11, 2017 12:00am December 16, 2017 10:06am Start: 11-03-2016 End: 11-17-2016 Start: 11-03-2016 End: 11-17-2016 take 1 tablet by mouth twice daily Augmentin 875-125 MG Oral Tablet 1 (one) Tablet two times daily for 14 days Quantity: 28 {Tablet} Refills: 0 Ordered: 03-Nov-2016 Chasity Verma CNP, CNP, Mary E Start : 03-Nov-2016 End : 17-Nov-2016 Inactive Start: 11-30-2013 End: 03-22-2014 Start: 11-30-2013 End: 03-22-2014 take 1 tablet by mouth twice daily AMOXICILLIN-POT CLAVULANATE, 875-125MG (Oral Tablet) 1 (one) Tablet bid for 0 days Quantity: 20 {Tablet} Refills: 0 Ordered: 22-Mar-2014 Shannon Caicedo LPN Start : 30-Nov-2013 End : 22-Mar-2014 Discontinued ASA QD (20 sources) ASA QD Inactive atorvastatin 80 mg oral tablet (20 sources) HMG-CoA Reductase Inhibitor Start: 07-29-2022 End: 07-29-2023 Atorvastatin 80 mg tablet Discontinued 40 mg PO AT BEDTIME July 29, 2022 3:38pm July 29, 2023 3:53pm Start: 07-29-2022 take 40 mg by mouth at bedtime Atorvastatin Active 40 MG PO AT BEDTIME July 29, 2022 3:38pm Start: 07-19-2022 End: 04-23-2024 take 1 tablet by mouth once daily Atorvastatin 40 mg tablet Active 40 mg PO DAILY July 29, 2023 12:00am Start: 06-29-2021 End: 06-29-2021 take 2 tablets by mouth at bedtime Atorvastatin 40 mg tablet Discontinued 80 mg PO AT BEDTIME June 29, 2021 6:38pm June 29, 2021 6:40pm Start: 06-29-2021 End: 06-29-2021 take 80 mg by mouth at bedtime Atorvastatin Discontinu ed 80 MG PO AT BEDTIME June 29, 2021 6:38pm June 29, 2021 6:40pm Start: 06-29-2021 End: 07-29-2022 take 1 tablet by mouth at bedtime Atorvastatin 80 mg tablet Discontinued 80 mg PO AT BEDTIME June 29, 2021 12:00am July 29, 2022 3:39pm Start: 12-05-2020 End: 06-29-2021 take 1 tablet by mouth at bedtime Atorvastatin 40 mg tablet Discontinued 40 mg PO AT BEDTIME December 05, 2020 4:39pm June 29, 2021 6:39pm Start: 10-06-2020 End: 08-04-2018 Start: 10-06-2020 End: 08-04-2018 Start: 05-05-2020 End: 08-04-2018 take 1 tablet by mouth once daily Lipitor 40 MG Oral Tablet 1 (one) Tablet QD for 30 days Quantity: 30 {Tablet} Refills: 3 Ordered: 05-May-2020 Chasity Verma CNP, CNP, Mary E Start : 05-May-2020 End : 04-Aug-2018 Active Start: 05-05-2020 End: 08-04-2018 take 1 tablet by mouth once daily Lipitor 40 MG Oral Tablet 1 (one) Tablet QD for 30 days Quantity: 30 {Tablet} Refills: 3 Ordered: 05-May-2020 Chasity Verma CNP, CNP, Mary E Start : 05-May-2020 End : 04-Aug-2018 Active Start: 01-03-2020 End: 08-04-2018 take 1 tablet by mouth once daily Lipitor 40 MG Oral Tablet 1 (one) Tablet QD for 30 days Quantity: 30 {Tablet} Refills: 3 Ordered: 03-Jan-2020 Chasity Verma CNP, CNP, Mary E Start : 03-Jan-2020 End : 04-Aug-2018 Active Start: 01-03-2020 End: 08-04-2018 take 1 tablet by mouth once daily Lipitor 40 MG Oral Tablet 1 (one) Tablet QD for 30 days Quantity: 30 {Tablet} Refills: 3 Ordered: 03-Jan-2020 Chasity Verma CNP, CNP, Mary E Start : 03-Jan-2020 End : 04-Aug-2018 Active Start: 01-03-2020 End: 08-04-2018 take 1 tablet by mouth once daily Lipitor 40 MG Oral Tablet 1 (one) Tablet QD for 30 days Quantity: 30 {Tablet} Refills: 3 Ordered: 03-Jan-2020 Chasity Verma CNP, CNP, Mary E Start : 03-Jan-2020 End : 04-Aug-2018 Active Start: 08-09-2019 End: 08-04-2018 take 1 tablet by mouth once daily Lipitor 40 MG Oral Tablet 1 (one) Tablet QD for 30 days Quantity: 30 {Tablet} Refills: 3 Ordered: 09-Aug-2019 Chasity Verma CNP, CNP, Mary E Start : 09-Aug-2019 End : 04-Aug-2018 Active Start: 08-09-2019 End: 08-04-2018 take 1 tablet by mouth once daily Lipitor 40 MG Oral Tablet 1 (one) Tablet QD for 30 days Quantity: 30 {Tablet} Refills: 3 Ordered: 09-Aug-2019 Chasity Verma CNP, CNP, Mary E Start : 09-Aug-2019 End : 04-Aug-2018 Active Start: 08-09-2019 End: 08-04-2018 take 1 tablet by mouth once daily Lipitor 40 MG Oral Tablet 1 (one) Tablet QD for 30 days Quantity: 30 {Tablet} Refills: 3 Ordered: 09-Aug-2019 Chasity Verma CNP, CNP, Mary E Start : 09-Aug-2019 End : 04-Aug-2018 Active Start: 08-09-2019 End: 08-04-2018 take 1 tablet by mouth once daily Lipitor 40 MG Oral Tablet 1 (one) Tablet QD for 30 days Quantity: 30 {Tablet} Refills: 3 Ordered: 09-Aug-2019 Chasity Verma CNP, CNP, Mary E Start : 09-Aug-2019 End : 04-Aug-2018 Active Start: 11-07-2018 End: 08-04-2018 take 1 tablet by mouth once daily Lipitor 40 MG Oral Tablet 1 (one) Tablet QD for 30 days Quantity: 30 {Tablet} Refills: 3 Ordered: 07-Nov-2018 Chasity Verma CNP, CNP, Mary E Start : 07-Nov-2018 End : 04-Aug-2018 Active Start: 11-07-2018 End: 08-04-2018 take 1 tablet by mouth once daily Lipitor 40 MG Oral Tablet 1 (one) Tablet QD for 30 days Quantity: 30 {Tablet} Refills: 3 Ordered: 07-Nov-2018 Chasity Verma CNP, CNP, Mary E Start : 07-Nov-2018 End : 04-Aug-2018 Active Start: 06-28-2016 End: 12-05-2020 take 1 tablet by mouth at bedtime Atorvastatin 40 MG tablet Discontinued 40 mg PO AT BEDTIME June 28, 2016 12:00am December 05, 2020 4:42pm Comment on above: Take 1 tablet by lamin th once daily. Take 40 mg by mouth once daily. azithromycin 250 mg oral tablet (20 sources) Macrolide Antimicrobial Start: 04-25-19 End: 04-30-19 take 2 tablets by mouth once daily, then take 1 tablet by mouth once daily at mealtime Azithromycin 250 mg tablet Discontinued 250 mg PO daily 6 April 25, 2023 1:00am April 29, 2023 1:00am April 30, 2023 1:27am 2 po qd for 1 day then 1 po qd for 4 days with food or after eating Start: 04-25-2018 End: 05-02-2018 Start: 04-25-2018 End: 05-02-2018 Zithromax Z-Brennan 250 MG Oral Tablet 2 (two) Tablet today then 1 qd for 4 days for 0 days Quantity: 1 {Package} Refills: 0 Ordered: 02-May-2018 FELIPE Forde LPN Start : 25-Apr-2018 End : 02-May-2018 Inactive Start: 07-30-2015 End: 09-09-2015 ZITHROMAX Z-BRENNAN, 250MG (Oral Tablet) 2 (two) Tablet today then 1 qd for 4 days for 0 days Quantity: 6 {Tablet} Refills: 0 Ordered: 09-Sep-2015 Briana Green LPN Start : 30-Jul-2015 End : 09-Sep-2015 Discontinued Start: 04-29-2015 End: 06-30-2015 Start: 04-29-2015 End: 06-30-2015 ZITHROMAX Z-BRENNAN, 250MG (Oral Tablet) 1 Tablet Tablet TAD for 0 days Quantity: 1 {Package} Refills: 0 Ordered: 30-Jun-2015 Briana Green LPN Start : 29-Apr-2015 End : 30-Jun-2015 Discontinued Start: 07-05-2012 End: 07-10-2012 baclofen 5 mg oral tablet (5 sources) gamma-Aminobutyric Acid-ergic Agonist Start: 08-11-2021 End: 11-16-2021 Baclofen 5 mg tablet Discontinued 5 mg PO THREE TIMES A DAY as needed for muscle spasms August 11, 2021 12:00am November 16, 2021 6:59pm May take 1-2 pills up to 3 x a day Comment on above: TAKE 1 TABLET BY LAMIN TH THREE TIMES DAILY NEEDED FOR MUSCLE SPASMS. August take 1 (ONE) to 2 (TWO) TABLETS up to THREE TIMES DAILY busPIRone hydrochloride 7.5 mg oral tablet (20 sources) Start: 07-09-2016 End: 09-06-2017 Start: 11-25-2014 End: 01-21-2015 Start: 11-25-2014 End: 01-21-2015 take 1 tablet by mouth three times daily BUSPIRONE HCL, 7.5MG (Oral Tablet) 1 (one) Tablet tid for 0 days Quantity: 90 {Tablet} Refills: 3 Ordered: 21-Jan-2015 Briana Green LPN Start : 25-Nov-2014 End : 21-Jan-2015 Discontinued cefdinir 300 mg oral capsule (1 source) Cephalosporin Antibacterial Start: 06-22-2023 End: 07-29-2023 take 1 capsule by mouth twice daily Cefdinir 300 mg capsule Discontinued 300 mg PO TWICE A DAY June 22, 2023 12:00am July 29, 2023 3:43pm celecoxib 200 mg oral capsule (20 sources) Nonsteroidal Anti-inflammatory Drug Start: 09-09-2015 End: 11-12-2015 Comment on above: with food chlordiazePOXIDE hydrochloride 25 mg oral capsule (20 sources) Benzodiazepine Start: 03-07-2013 End: 04-26-2013 Comment on above: called into pharmacy since fax failed cholecalciferol 0.05 mg oral capsule (20 sources) Vitamin D Start: 09-06-2017 Start: 09-06-2017 take 1 capsule by [facility] once daily Vitamin D3 Super Strength 2000 UNIT Oral Capsule 1 (one) Capsule Capsule daily for 0 days Quantity: 30 {Capsule} Refills: 3 Ordered: 23-Nov-2017 Barbara Ascencio Start : 06-Sep-2017 Active Start: 06-07-2017 End: 09-06-2017 Start: 06-07-2017 End: 09-06-2017 take 2 tablets by mouth once daily Vitamin D3 13632 UNIT Oral Tablet 2 (two) Tablet daily for 0 days Quantity: 60 {Tablet} Refills: 10 Ordered: 06-Sep-2017 Briana Green LPN Start : 07-Jun-2017 End : 06-Sep-2017 Inactive ciprofloxacin 500 mg oral ta blet (20 sources) Quinolone Antimicrobial Start: 03-07-2013 End: 03-17-2013 24 hr clarithromycin 500 mg extended release oral tablet (20 sources) Macrolide Antimicrobial Start: 03-28-2012 End: 04-11-2012 Start: 03-28-2012 End: 04-11-2012 take 2 tablets by mouth once daily BIAXIN XL PAC, 500MG (Oral Tablet Extended Release 24 Hour) 2 (two) Tablet ER 24HR daily for 14 days Quantity: 28 {Tablet_ER_24HR} Refills: 0 Ordered: 28-Mar-2012 Chasity Verma CNP, CNP, Mary E Start : 28-Mar-2012 End : 11-Apr-2012 Inactive Start: 03-28-2012 End: 04-11-2012 take 2 tablets by mouth once daily BIAXIN XL PAC, 500MG (Oral Tablet Extended Release 24 Hour) 2 (two) Tablet ER 24HR daily for 14 days Quantity: 28 {Tablet_ER_24HR} Refills: 0 Ordered: 28-Mar-2012 Chasity Verma CNP, CNP, Mary E Start : 28-Mar-2012 End : 11-Apr-2012 Inactive Start: 01-17-2009 Comment on above: stop lipitor while t jose antibiotic Coenzyme E08-Vbietbs E (1 source) Start: 07-16-2021 End: 11-16-2021 Coenzyme P02-Hrbuttj E Discontinued CAP PO July 16, 2021 12:00am November 16, 2021 6:59pm Coenzyme Q28-Prredlh E 100-100 mg-unit capsule (1 source) Start: 07-16-2021 End: 11-16-2021 Coenzyme H16-Uumsbsz E 100-100 mg-unit capsule Discontinued NMA PO July 16, 2021 12:00am November 16, 2021 6:59pm Dextromethorphan (20 sources) Uncompetitive G-jdiopy-X-aspartate Receptor Antagonist, Sigma-1 Agonist Start: 04-29-2015 End: 06-30-2015 Start: 04-29-2015 End: 06-30-2015 DELSYM, 30MG/5ML (Oral Liqui d Extended Release) 1 (one) Liquid ER Liquid ER q12hrs for 0 days Quantity: 1 {Box} Refills: 0 Ordered: 30-Jun-2015 Briana Green LPN Start : 29-Apr-2015 End : 30-Jun-2015 Discontinued Start: 04-29-2015 End: 06-30-2015 DELSYM, 30MG/5ML (Oral Liqui d Extended Release) 1 (one) Liquid ER Liquid ER q12hrs for 0 days Quantity: 1 {Box} Refills: 0 Ordered: 30-Jun-2015 Briana Green LPN Start : 29-Apr-2015 End : 30-Jun-2015 Discontinued doxycycline hyclate 100 mg oral tablet (20 sources) Tetracycline-class Drug Start: 01-29-2015 End: 02-05-2015 empagliflozin 25 mg oral tablet (1 source) Sodium-Glucose Cotransporter 2 Inhibitor Start: 07-19-2023 End: 07-29-2023 take 1 tablet by mouth once daily Empagliflozin (Jardiance) 25 mg tablet Discontinued 25 mg PO DAILY July 19, 2023 12:00am July 29, 2023 3:52pm ergocalciferol 1.25 mg oral capsule (20 sources) Provitamin D2 Compound Start: 12-23-2016 End: 06-07-2017 Start: 12-23-2016 End: 06-07-2017 Ergocalciferol 52545 UNIT Or al Capsule 1 (one) Capsule Weekly x 8 weeks. for 0 days Quantity: 8 {Capsule} Refills: 0 Ordered: 07-Jun-2017 Chasity Verma CNP AIRCRA[employer] TECHNICIANChasity Start : 23-Dec-2016 End : 07-Jun-2017 Inactive esomeprazole 40 mg delayed release oral capsule (20 sources) Proton Pump Inhibitor Start: 02-27-2009 End: 02-27-2009 ezetimibe 10 mg oral tablet (20 sources) Dietary Cholesterol Absorption Inhibitor Start: 11-04-2021 End: 04-23-2025 take 1 tablet by mouth once daily Ezetimibe 10 mg tablet Discontinued 10 mg PO DAILY December 27, 2022 5:22pm November 29, 2023 4:04pm Start: 01-10-2006 End: 11-28-2006 Comment on above: new for uncontrolled [facility] fen[facility]ibrate 67 mg oral capsule (20 sources) Peroxisome Proliferator Receptor alpha Agonist Start: 2 End: 3 take 1 capsule by mouth once daily Fenofibrate Micronized 67 mg capsule Discontinued 67 mg PO DAILY July 16, 2021 12:00am September 20, 2022 5:51pm Start: 07-08-2017 End: 07-12-2017 Start: 06-07-2017 End: 09-06-2017 Comment on above: Take 1 capsule by mo [facility] daily with breakfast. Take 67 mg by mouth once daily. TAKE 1 CAPSULE BY MO UT EVERY DAY with BREAKFAST fexofenadine hydrochloride 1 80 mg oral tablet (20 sources) Histamine-1 Receptor Antagonist Start: 07-30-2015 End: 08-29-2015 Start: 07-20-2010 End: 01-29-2013 Comment on above: This order discontin ued per [facility]. Fish Oils (20 sources) fish oil daily Active Flax seed oil (20 sources) Flax seed oil da luc[place] Active fluticasone propionate 0.05 mg/actuat metered dose nasal spray (20 sources) Corticosteroid Start: 11-13-2012 End: 11-13-2012 Start: 11-13-2012 End: 11-13-2012 take 2 puff(s) nasal route once daily FLONASE, 50MCG/ACT (Nasal Suspension) 2 (two) Puff(s) each nostril daily for 0 days Quantity: 1 {Suspension} Refills: 0 Ordered: 13-Nov-2012 Frances Alonso DO Start : 13-Nov-2012 End : 13-Nov-2012 Discontinued 60 actuat formoterol fumarat e 0.005 mg/actuat / mometasone furoate 0.1 mg/actuat metered dose inhaler (20 sources) Corticosteroid, beta2-Adrenergic Agonist Start: 11-13-2012 End: 11-13-2012 Start: 11-13-2012 End: 11-13-2012 DULERA, 100-5MCG/ACT (Inhala tion Aerosol) 1 Aerosol bid for 0 days Quantity: 1 {Aerosol} Refills: 0 Ordered: 13-Nov-2012 Frances Alonso DO Start : 13-Nov-2012 End : 13-Nov-2012 Discontinued Comments: will call when need because gave sample Comment on above: will call when need because gave sample gabapentin 100 mg oral capsule (3 sources) Anti-epileptic Agent Start: 09-06-19 End: 09-15-19 take 2 capsules by mouth twice daily gabapentin (NEURONTIN) 100 mg capsule Take 2 capsules by mouth twice daily for 7 days. 28 capsule 0 09/05/2021 09/14/2021 Discontinued (Course of therapy completed) Comment on above: Take 2 capsules by m out twice daily for 7 days. ketorolac tromethamine 10 mg oral tablet (20 sources) Nonsteroidal Anti-inflammatory Drug, Cyclooxygenase Inhibitor Start: 03-07-20 13 End: 03-09-20 13 lansoprazole 30 mg delayed release oral capsule (20 sources) Proton Pump Inhibitor Start: 01-21-20 12 End: 01-21-20 12 Start: 01-21-2012 End: 01-21-2012 LANSOPRAZOLE, 30MG (Oral Cap dick Delayed Release) [address] qd for 30 days Quantity: 30 {Capsule_DR} Refills: 5 Ordered: 21-Jan-2012 Frances Alonso DO Start : 21-Jan-2012 End : 21-Jan-2012 Discontinued Comment on above: generic- dispense as written patient on plavixPATIENT ON PLAVIX!!!! CANNOT TAKE OMEPRAZOLE levocetirizine dihydrochlori de 5 mg oral tablet (20 sources) Histamine-1 Receptor Antagonist Start: 03-20-2008 levoFLOXacin 500 mg oral tab let (20 sources) Quinolone Antimicrobial Start: 06-18-2019 End: 06-28-2019 Start: 12-22-2016 End: 01-01-2017 take 1 tablet by mouth once daily Levaquin 500 MG Oral Tablet 1 (one) Tablet qd for 10 days Quantity: 10 {Tablet} Refills: 0 Ordered: 22-Dec-2016 Frances Alonso DO Start : 22-Dec-2016 End : 01-Jan-2017 Inactive Medrol 4 MG Oral Tablet Therapy Pack (16 sources) Start: 09-09-2015 End: 11-12-2015 take 1 tablet by mouth at mealtime Medrol 4 MG Oral Tablet Therapy Pack 1 (one) Tablet tad for 0 days Quantity: 1 {Package} Refills: 0 Ordered: 12-Nov-2015 Ary Cornell RN Start : 09-Sep-2015 End : 12-Nov-2015 Inactive Comments: with food Start: 09-09-2015 End: 11-12-2015 take 1 tablet by mouth at mealtime Medrol 4 MG Oral Tablet Therapy Pack 1 (one) Tablet tad for 0 days Quantity: 1 {Package} Refills: 0 Ordered: 12-Nov-2015 Ary Cornell LPN Start : 09-Sep-2015 End : 12-Nov-2015 Inactive Comments: with food Comment on above: with food melatonin 0.2 mg oral tablet (20 sources) Start: 2016 End: 2017 take 1 tablet by mouth at bedtime meloxicam 7.5 mg oral tablet (20 sources) Nonsteroidal Anti-inflammatory Drug Start: 2015 End: 2015 Comment on above: with food metaxalone 800 mg oral tablet (20 sources) Start: 2015 End: 2015 methylPREDNISolone 4 mg oral tablet (8 sources) Corticosteroid Start: 2022 End: 2022 take 1 tablet by mouth once daily Methylprednisolone 4 mg tablets,dose pack Discontinued 4 mg PO DAILY November 08, 2022 12:00am December 27, 2022 5:21pm take as directed Start: 09-09-2015 End: 11-12-2015 Start: 09-09-2015 End: 11-12-2015 take 1 tablet by mouth at mealtime Medrol 4 MG Oral Ta blet Therapy Pack 1 (one) Tablet tad for 0 days Quantity: 1 {Package} Refills: 0 Ordered: 12-Nov-2015 Ary Cornell LPN L Start : 09-Sep-2015 End : 12-Nov-2015 Inactive Comments: with food Comment on above: with food 14 actuat mometasone furoate 0.22 mg/actuat dry powder inhaler (20 sources) Corticosteroid Start: 01-29-2015 End: 04-29-2015 Start: 01-29-2015 End: 04-29-2015 take 1 puff(s) by inhalation twice daily ASMANEX 14 METERED DOSES, 220MCG/INH (Inhalation Aerosol Powder Breath Activated) 1 (one) Puff bid for 90 days Quantity: 2 {QS} Refills: 0 Ordered: 29-Apr-2015 Luci KINCAID, Chasity Mittal Luci KINCAID, Chasity Mittal Start : 29-Jan-2015 End : 29-Apr-2015 Inactive montelukast 10 mg oral tablet (20 sources) Leukotriene Receptor Antagonist Start: 11-19-2016 End: 09-06-2017 Multivitamin preparation (1 source) Start: 11-21-2019 End: 11-16-2021 take 1 tablet by mouth once daily Multivitamin Discontinued 1 TABLET PO DAILY November 21, 2019 12:00am November 16, 2021 7:00pm multivitamin tablet (5 sources) take 1 tablet by mouth once daily at bedtime multivitamin tablet Take 1 tablet by mouth daily at bedtime. 0 Suspended take 1 tablet by mouth once laureano y multivitamin tablet Take 1 tablet by mouth once daily. 0 Active Comment on above: Take 1 tablet by lamin th once daily. Take 1 tablet by lamin th daily at bedtime. Multivitamin tablet (1 source) Start: 11-21-19 End: 11-17-19 Multivitamin tablet Discontinued 1 {tbl} PO DAILY November 21, 2019 12:00am November 16, 2021 7:00pm MVI (20 sources) MVI daily Active naproxen 500 mg oral tablet (20 sources) Nonsteroidal Anti-inflammatory Drug Start: 04-26-19 End: 06-26-19 14 omega-3 acid ethyl esters (jail) 1000 mg oral capsule (2 sources) Start: 11-21-19 End: 06-30-19 22 [place] 6-Gmk-Fqz-Fish Oil (Fish Oil) 1,000 mg (120 mg-180 mg) capsule Discontinued 1 NMA PO DAILY November 21, 2019 12:00am June 29, 2021 6:38pm omeprazole 20 mg delayed release oral capsule (20 sources) Proton Pump Inhibitor Start: 11-21-19 End: 11-17-19 take 2 capsules by mouth once daily Omeprazole 20 mg capsule,delayed release(DR/EC) Discontinued 40 mg PO DAILY December 05, 2020 4:39pm November 16, 2021 7:01pm Start: 11-21-2019 End: 11-16-2021 take 40 mg by mouth once daily Omeprazole Discontinued 40 MG PO DAILY December 05, 2020 4:39pm November 16, 2021 7:01pm Start: 11-13-2012 End: 01-29-2013 Start: 11-13-2012 End: 01-29-2013 OMEPRAZOLE, 20MG (Oral Capsu le Delayed Release) 1 (one) Capsule DR q am for 30 days Quantity: 30 {Capsule_DR} Refills: 3 Ordered: 29-Jan-2013 Mya Smith LPN Start : 13-Nov-2012 End : 29-Jan-2013 Inactive End: 11-13-2012 Comment on above: Take 20 mg by mouth once daily. Take 20 mg by mouth daily at bedtime. Rhinase (2 sources) Start: 11-23-2017 End: 01-02-2018 Rhinase Nasal Solution (20 sources) Start: 11-23-2017 End: 01-02-2018 Rhinase Nasal Solution 1 (one) Solution prn for 0 days Quantity: 2 {Bottle} Refills: 0 Ordered: 02-Jan-2018 Ary Cornell RN Start : 23-Nov-2017 End : 02-Jan-2018 Inactive Start: 11-23-2017 End: 01-02-2018 Rhinase Nasal Solution 1 (on e) Solution prn for 0 days Quantity: 2 {Bottle} Refills: 0 Ordered: 02-Jan-2018 Ary Cornell LPN Start : 23-Nov-2017 End : 02-Jan-2018 Inactive rosuvastatin calcium 10 mg oral tablet (14 sources) HMG-CoA Reductase Inhibitor Start: 08-04-2018 sertraline 50 mg oral tablet (20 sources) Serotonin Reuptake Inhibitor Start: 07-26-2016 End: 09-06-2017 traMADol hydrochloride 50 mg oral tablet (20 sources) Opioid Agonist Start: 09-05-2021 End: 10-13-2021 take 1 tablet by mouth every six hours as needed traMADol (ULTRAM) 50 mg tablet Indications: S/P CABG x 1 Take 1 tablet by mouth every 6 hours as needed. 28 tablet 0 09/05/2021 10/13/2021 Discontinued (Course of therapy completed) Start: 11-30-2013 End: 01-21-2015 Start: 11-30-2013 End: 01-21-2015 Comment on above: [age] Take 1 tablet by [facility] every 6 hours as needed. [The details of the medication are not available because there are pending changes by a home health clinician.] traZODone hydrochloride 50 m g oral tablet (20 sources) Serotonin Reuptake Inhibitor Start: 07-18-2013 End: 01-21-2015 Triamcinolone (20 sources) Corticosteroid Start: 03-20-2008 Start: 03-20-2008 NASACORT AQ, 5 5MCG/ACT (Nasal Aerosol Solution) 2 (two) Aerosol Soln qd for 0 days Refills: 0 Ordered: 02-Jan-2010 Sirisha Teran Start : 20-Mar-2008 Inactive ubidecarenone 200 mg oral capsule (5 sources) Start: 07-16-2021 End: 08-28-2021 take 1 capsule by mouth once daily Coenzyme Q10 200 mg cap Take 1 capsule by mouth once daily. 0 07/16/2021 08/28/2021 Discontinued (Non-Compliance) Comment on above: Take 1 capsule by [facility] once daily. CHANTIX CONTINUING MONTH BRENNAN, 1MG (Oral Tablet) (20 sources) Partial Cholinergic Nicotinic Agonist Start: 05-25-2012 End: 07-13-2012 Start: 05-25-2012 End: 07-13-2012 Start: 05-25-2012 End: 07-13-2012 take 1 tablet by mouth once CHANTIX STARTING MONTH BRENNAN , 0.5 MG X 11 &1 MG X 42 (Oral Tablet) 1 Tablet as directed for 0 days Quantity: 1 {brennan} Refills: 0 Ordered: 13-Jul-2012 Ary Cornell RN Start : 25-May-2012 End : 13-Jul-2012 Inactive Start: 05-25-2012 End: 07-13-2012 take 1 tablet by mouth twice daily CHANTIX CONTINUING MONTH BRENNAN, 1MG (Oral Tablet) 1 Tablet bid for 0 days Quantity: 60 {Tablet} Refills: 2 Ordered: 13-Jul-2012 Ary Cornell RN Start : 25-May-2012 End : 13-Jul-2012 Inactive (8 sources) Problems Active Problems Problem Classification Problem Date Documented Date Episodic/Chronic Abdominal pain (20 sources) Right flank pain; Translations: [Acute abdominal pain] Resolved: 7 11-23-2017 Episodic Comment on above: ? kidney look at ult rasound Acute bronchitis (20 sources) Acute bronchitis; Translations: [Bronchitis] Onset: 0 11-03-2016 Episodic Acute myocardial infarction (20 sources) Myocardial infarction; Translations: [Non-ST elevation (NSTEMI) myocardial infarction] Onset: 2 Resolved: 2 08-27-2021 Chronic Alcohol-related disorders (20 sources) Nondependent alcohol abuse, episodic; Translations: [Nondependent alcohol abuse in remission] Resolved: 7 04-25-2018 Chronic Comment on above: back to [facility] Allergic reactions (20 sources) Contact dermatitis due to poison meliza; Translations: [Contact dermatitis due to poison meliza] 04-25-2018 Episodic Anxiety disorders (20 sources) Anxiety; Translations: [Anxiety] Onset: 2 Resolved: 2 04-25-2018 Chronic Comment on above: using to quit smokin g and drinking and father with hsopice Quit tobacco, 2 drin k beers/dayNot inteersted in celexa beacause of side effectirritable and anxiouscoffee 3-4 cups.Using ativan 3-4 times a week Asthma (20 sources) Mild asthma; Translations: [Acute exacerbation of asthma] Resolved: 6 04-25-2018 Chronic Asthma (20 sources) Asthma Attention-deficit conduct and disruptive behavior disorders (2 sources) Adult attention deficit hyperactivity disorder ; Translations: [Attention deficit disorder (Renamed from ADD (attention deficit disorder))] 11-23-2017 Chronic Comment on above: he feels improving Blindness and vision defects (20 sources) Blurring of visual image; Translations: [Blurred vision, bilateral] 04-25-2018 Episodic Cardiac dysrhythmias (2 sources) Paroxysmal atrial fibrillation; Translations: [Paroxysmal atrial fibrillation] 05-19-2018 Chronic Chronic obstructive pulmonary disease and bronchiectasis (20 sources) Bronchitis; Translations: [Bronchitis] Resolved: 8 04-25-2018 Episodic Comment on above: better Chronic obstructive pulmonary disease and bronchiectasis (20 sources) Chronic obstructive pulmonary disease and bronchiectasis Coagulation and hemorrhagic disorders (2 sources) Thrombophilia; 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 ativan withdrawal , was taking ativan 1 week and abruply stopped taking it, thn started symptoms Coronary atherosclerosis and other heart disease (20 sources) Coronary arteriosclerosis; Translations: [Coronary artery disease] Onset: 04-25-2018 Chronic Comment on above: Moodspaw 05/02/16 nex t youstents X1 2008Moodspaw: once a yrStress test: 11/23 , ?abnormalAngiogram : will get results Diabetes mellitus without complication (20 sources) Impaired fasting glycaemia; Translations: [Impaired fasting glucose] 04-25-2018 Episodic Comment on above: HBA!c 5.7(03/26). 5. 5 on 08-04-18Cut down carbnohydrates and follow up every 3 mnths HBA!c 5.7(03/26).Cut down carbnohydrates and follow up every 3 mnths Diseases of white blood cells (10 sources) Leukocytosis; Translations: [Elevated WBC count] 08-07-2019 Chronic Comment on above: labs drawn while sic k Disorders of lipid metabolism (20 sources) Hypercholesterolemia; Translations: [Mixed hyperlipidemia] Onset: 04-25-2018 Chronic Comment on above: continued lipitor, m yalgia okLDL up, to 103, was 88. does not want to increse lipitorTG are high tooWil repeat 2 month id still high will start trilipixextensive counselling. Disorders of teeth and jaw (20 sources) Dental abscess; Translations: [Tooth abscess] 04-25-2018 Episodic Comment on above: has dental appt will give atb until than Disorders usually diagnosed in infancy childhood or adolescence (5 sources) Other specified behavioral and emotional disorders with onset usually occurring in childhood and adolescence; Translations: [Attention deficit hyperactivity disorder, predominantly inattentive type] Resolved: 8 08-04-2018 Chronic Comment on above: he feels improving Esophageal disorders (20 sources) Gastro-esophageal reflux disease without esophagitis; Translations: [Gastroesophageal reflux disease] 04-25-2018 Chronic Comment on above: chronic stable-josé miguel nue present regimen Esophageal disorders (20 sources) Esophageal disorders Essential hypertension (20 sources) Benign essential hypertension; Translations: [Benign essential hypertension (Renamed from Benign essential HTN)] Onset: 1 04-25-2018 Chronic Comment on above: BP at home:130/80 chronic stable-josé miguel nue present regimen BP good evenBP at home:130/80 ? related to Otc col d meds will have come back in 1-3 days to work up Fever of unknown origin (1 source) Fever; Translations: [Fever, unspecified] 04-20-2023 Episodic Genitourinary symptoms and ill-defined conditions (20 sources) Blood in urine; Translations: [Hematuria (Renamed from Blood in the urine)] 04-25-2018 Episodic Comment on above: stone in past also o n plavix Headache; including migraine (20 sources) Headache; Translations: [Headache] 11-23-2017 Episodic Comment on above: MRI/MRA: WNLCBC, CMP : WNLHeadache,dizziness,Nausea and heartburn,frontal sinus symptom, chest pain resolved.Cardiac cath was in 12/24.Took ativan for a week and stopped takinmg it tuesday Immunizations and screening for infectious disease (20 sources) Need for prophylactic vaccination and inoculation against influenza; Translations: [Needs influenza immunization] Resolved: 4 01-14-2015 Episodic Influenza (20 sources) Influenza Malaise and fatigue (20 sources) Fatigue; Translations: [Fatigue] 04-25-2018 Episodic Mood disorders (1 source) Depressive disorder; Translations: [Depression] 07-29-2023 Chronic Nausea and vomiting (20 sources) Vomiting; Translations: [Nausea] Resolved: 8 04-07-2018 Episodic Noninfectious gastroenteritis (1 source) Gastroenteritis; Translations: [Noninfective gastroenteritis and colitis, unspecified] 03-13-2024 Episodic Nonspecific chest pain (20 sources) Chest pain; Translations: [Chest pain, unspecified] Onset: 2 Resolved: 3 04-25-2018 Episodic Comment on above: area right side. nsa ids rest. if not better than xray. consier Dr. mahoney to reset rib. not drinking as much etohonly 2 a week.EKG shows NSR and no acute changes. troponin wnl Nutritional deficiencies (20 sources) Vitamin D deficiency; Translations: [Vitamin D deficiency] 09-06-2017 Chronic Nutritional deficiencies (20 sources) Cobalamin deficiency; Translations: [Vitamin B12 deficiency (non anemic)] 04-25-2018 Episodic Other acquired deformities (1 source) Other secondary scoliosis, lumbar region; Translations: [Other secondary scoliosis, lumbar region] Onset: 5 Chronic Other acquired deformities (1 source) Scoliosis deformity of spine; Translations: [Scoliosis, unspecified] 05-08-2024 Chronic Other aftercare (1 source) Postoperative visit; Translations: [Encounter for other specified surgical aftercare] Episodic Other and ill-defined heart disease (20 sources) Diastolic dysfunction; Translations: [Other ill-defined heart diseases] Onset: 2 06-09-2021 Chronic Other circulatory disease (20 sources) Thromboangiitis obliterans; Translations: [Buerger disease] 04-25-2018 Chronic Other circulatory disease (20 sources) Raynaud's phenomenon ; Translations: [Raynaud's phenomenon] 04-25-2018 Chronic Comment on above: keep warm Other circulatory disease (20 sources) Elevated blood pressure; Translations: [Elevated blood pressure reading] 04-25-2018 Episodic Other connective tissue disease (20 sources) Muscle pain; Translations: [Myalgia and myositis] 04-25-2018 Episodic Comment on above: on lipitor 40mg will stop x 2 weeks then resume with Lower dose crestor at nigh Other connective tissue disease (20 sources) Lateral epicondylitis; Translations: [Golfer's elbow] 04-25-2018 Episodic Comment on above: nsads rest ice brace not helping Other connective tissue disease (18 sources) Spasm; Translations: [Muscle spasm of right shoulder] 07-10-2018 Episodic Other connective tissue disease (12 sources) Myalgia Episodic Other connective tissue disease (2 sources) Muscle spasm of cervical muscle of neck; Translations: [Other muscle spasm] 08-09-2022 Episodic Other connective tissue disease (2 sources) Pain in hallux; Translations: [Pain in left toe(s)] 06-06-2022 Episodic Other eye disorders (6 sources) Other specified disorders of eye and adnexa; Translations: [Bilateral red eyes] 04-25-2018 Episodic Other gastrointestinal disorders (20 sources) Swollen abdomen; Translations: [Abdominal distension ] 04-25-2018 Episodic Comment on above: US abdomen/CT scan3 week: pulled abdominla musclesore when press on it, 04/20 , distension of abdomen.Denies nausea, vomiting, constipation, diarhea, loss of appetie, hematochesia/melenaCholecystecomy:08/2008No pain after eating Other liver diseases (20 sources) Steatosis of liver; Translations: [Fatty liver] 04-25-2018 Chronic Comment on above: elevated liver enzym es and fatty liver, add Vit E stop etohwith prediabetes Other liver diseases (20 sources) Fatty liver Chronic Other liver diseases (20 sources) Abnormal levels of other serum enzymes; Translations: [Elevated liver enzymes level] 04-25-2018 Episodic Other liver diseases (20 sources) ALT (SGPT) level raised; Translations: [ALT (SGPT) level raised] 04-25-2018 Episodic Comment on above: ALT LFT is slightly elevated Other liver diseases (20 sources) Elevated levels of transaminase & lactic acid dehydrogenase; Translations: [Nonspecific elevation of levels of transaminase and lactic acid dehydrogenase (LDH)] 11-23-2017 Episodic Other lower respiratory disease (20 sources) Cough; Translations: [Cough] 04-07-2018 Episodic Comment on above: worse with cough at night, consider changing Yazan inhibitor (ramipril) on prilosec Other lower respiratory disease (20 sources) Dyspnea; Translations: [Shortness of breath] 04-25-2018 Episodic Other lower respiratory disease (20 sources) Wheezing; Translations: [Wheeze] 04-25-2018 Episodic Other lower respiratory disease (20 sources) Shortness of breath Episodic Other lower respiratory disease (2 sources) Inspiratory wheezing; Translations: [Wheezing] 06-05-2018 Episodic Other lower respiratory disease (1 source) Rib pain; Translations: [Pleurodynia] 07-20-2023 Episodic Other nervous system disorders (20 sources) Attention and concentration deficit; Translations: [Disturbance of attention] 04-25-2018 Chronic Comment on above: was Stratera but too expensive, felt great on it, wanted something cheaper strattera definately helps miracle drug for him. he was off because of cost. now with good rx better cost. willrestart he has in the past been able to start right at 40 mg. he willcall if there is side effects with restarting then i will callin lower dose. no side effects in past. Other nervous system disorders (20 sources) Lesion of ulnar nerve; Translations: [Ulnar nerve abnormality] 04-25-2018 Chronic Other nervous system disorders (1 source) Other chronic pain; Translations: [Other chronic pain] Onset: 5 Chronic Other non-traumatic joint disorders (5 sources) Pain in left shoulder; Translations: [Pain in joint, shoulder region] Onset: 3 02-01-2023 Episodic Other nutritional; endocrine; and metabolic disorders (20 sources) Body mass index 30+ - obesity; Translations: [BMI 33.0-33.9,adult] Resolved: 8 04-07-2018 Chronic Comment on above: DIET AND EXERCISE: - 10,000 steps a day (can buy a pedometer at sport stores), -5 days of week of 30 mins of cardiotraining (increase heartrate around 110-130 and sweating in 10 min), twice a week of 15 min weight lifting. Keep track of daily food intake, watch portion control, must make lifestyle change and not just diet.-limit sugars to 20-30 grams a day. Avoid soda, pop and white starches. Replace refined grains (white bread, white rice, refined sweet cereal with whole grain(whole wheat, whole grain, brown rice, whole grain cereal, oatmeal, barley, bulgar, popcorn oat cereal,muesli cereal, rye quinoa, whole grain anything) Avoid pasta, potatoes, corn syrups. Avoid pasta if you have to have any use spiralizer/spagetti squash/zuchini for pasta and quinoa for rice.(recommend 1/3 of grains whole grains, about 30 gm a day)-Avoid red meat, processed meats. Clean eating:lean protein like fish, chicken, turkey, lean redmeat (only 2-3 servings a week), baked broiled or grilled.1-2 servings of oily fish per week is recommended to decrease cardiovascular disease.- Type of fat is more important than total fat. Saturated fats to avoid are meat, dairy, chips, pastries, hydrogenated veg. oilPolyunsaturated fats are protective , in foods like nuts, avocados, olives- 2 cups of fruit and 2 cups of veggies a day ,double the vegetables over fruits. Fruits and vegetables are a high source of fiber-Eat from refrigerator not pantry. Shop from the outside aisle and produce and not inner aisle.Weigh yourself daily, lose 1-2 pounds per week. In three months if unable to loose atleast 4 pounds a month, then need to talk about further treatment strategies.Consider 21 day cleanse challenge.Can join [facility] programme with [facility] for nutrition counselling.sodared meatpotatoes3 eggs /day Based on weight repo rted by pt due to COVID-19 pandemic Other nutritional; endocrine; and metabolic disorders (20 sources) Severe obesity; Translations: [Morbid (severe) obesity due to excess calories] Chronic Other nutritional; endocrine; and metabolic disorders (20 sources) Obese class I; Translations: [Obesity, unspecified] Onset: 2 08-27-2021 Chronic Other nutritional; endocrine; and metabolic disorders (2 sources) Hypomagnesemia; Translations: [Hypomagnesemia] 12-16-2017 Chronic Other skin disorders (2 sources) Ingrowing nail of toe of left foot; Translations: [Ingrowing nail] 06-03-2022 Episodic Other skin disorders (2 sources) Lesion of skin of face; Translations: [Disorder of the skin and subcutaneous tissue, unspecified] 2022 Episodic Other skin disorders (1 source) Disorder of sweat gland; Translations: [Eccrine sweat disorder, unspecified] 01-10-2023 Episodic Other upper respiratory disease (20 sources) Allergic rhinitis; Translations: [Allergic Rhinitis] 04-25-2018 Chronic Comment on above: use rhinase nasal sp ray Other upper respiratory disease (20 sources) Pain in throat Episodic Other upper respiratory infections (2 sources) Maxillary sinusitis; Translations: [Chronic maxillary sinusitis] 12-28-2019 Chronic Other upper respiratory infections (20 sources) Sore throat symptom; Translations: [Acute sinusitis] Onset: 1 Resolved: 2 04-25-2018 Episodic Comment on above: breathe salt dust al l day, strep negative and was treated at Dr's office with augmentin, will add prednisone Otitis media and related conditions (3 sources) Otitis media; Translations: [Otitis media, unspecified, left ear] 12-28-2019 Episodic Pneumonia (except that caused by tuberculosis or sexually transmitted disease) (20 sources) Pneumonia (except that caused by tuberculosis or sexually transmitted disease) Residual codes; unclassified (20 sources) Chill; Translations: [Chills] 04-25-2018 Episodic Residual codes; unclassified (20 sources) Insomnia; Translations: [Insomnia] 04-25-2018 Episodic Residual codes; unclassified (11 sources) Cigar smoker; Translations: [Cigar smoker] 08-07-2019 Episodic Comment on above: will get low dose bruno ng CT,Age 56 smoking 4 cigars per day x 10 years encouraged to quit Residual codes; unclassified (4 sources) Non-smoker; Translations: [Nonsmoker] Resolved: 7 08-07-2019 Episodic Spondylosis; intervertebral disc disorders; other back problems (20 sources) Degeneration of intervertebral disc; Translations: [Degeneration of lumbar intervertebral disc] 04-25-2018 Chronic Comment on above: likely cause of low back pain Spondylosis; intervertebral disc disorders; other back problems (20 sources) Low back pain; Translations: [Pain in thoracic spine] Onset: 5 04-25-2018 Episodic Comment on above: Lower back pain like ly secondary to lumbar strain versus lumbar herniated disc versus pain due to degenerative changes in the lumbar spine versus Sciatica.On exam patient has severe pain on palpation of the llumbar paraspinal muscles.No pain on palpation of the entire spine. Neurological exam power 5/5 in both the lower extremity.Sensation is normal in both lower extremities. Deep tendon reflexes are symmetrical in both the lower extremities. SLRs positiveX-rays of the lumbar spine/hipNaproxen BID PRPhysical therapyRest, apply heat/cold, gentle stretching exercises.Red flags: please call us if bowel/bladder incontinence, leg weakness, numbness, urine retention.If symptoms dont improve in the next 3-4 weeks please call us.(consider MRI)6 mnth: left hip and lower back pain.Worse 1 mnth, Ice/heat imroved.Pain radiate down left hipDenies numbness/weakness in legNo injuriesIbuprofen/ muscle relaxor helped. comes and goes but t his is longest span Sprains and strains (6 sources) Strain of muscle(s) and tendon(s) of the rotator cuff of left shoulder, initial encounter; Translations: [Rotator cuff (capsule) sprain] Onset: 3 02-10-2023 Episodic Substance-related disorders (20 sources) Smoker; Translations: [Nicotine dependence, other tobacco product, uncomplicated] Onset: 1 04-25-2018 Chronic Comment on above: encouraged to quit Superficial injury; contusion (2 sources) Foreign body - finger; Translations: [Superficial foreign body of right little finger, initial encounter] 01-05-2021 Episodic Thyroid disorders (20 sources) Hypothyroidism; Translations: [Hypothyroid] 04-25-2018 Chronic Unclassified (20 sources) PVCs 04-25-2018 Unclassified (20 sources) Screening status; Translations: [Screening for prostate cancer] 04-25-2018 Unclassified (20 sources) ABUSE, ALCOHOL, IN REMISSION (305.03) Unclassified (20 sources) Unclassified (20 sources) SYMPTOMS INVOLVING RESPIRATORY SYSTEM AND OTHER CHEST SYMPTOMS, UNSPECIFIED CHEST PAIN (786.50) Unclassified (20 sources) SCREENING FOR CANCER OF THE PROSTATE (V76.44) Unclassified (20 sources) Attention deficit disorder (Renamed from ADD (attention deficit disorder)) Unclassified (20 sources) Elevated LFT (790.6) Unclassified (20 sources) testicular pain Resolved: 9 04-26-2013 Comment on above: gone Unclassified (20 sources) lipoprotein a abnormality- I cant justify putting him an niacin with his lfts elevated and his still intemittent use of etoh- maninder with him already on lipitor Resolved: 7 04-07-2018 Unclassified (20 sources) Non-smoker; Translations: [Nonsmoker] Resolved: 7 04-07-2018 Unclassified (17 sources) Abdominal Pain,RUQ(789.01) Unclassified (20 sources) Cigar smoker Unclassified (20 sources) BMI 36.0-36.9,adult Unclassified (20 sources) Current smoker Unclassified (20 sources) BMI 35.0-35.9,adult Unclassified (20 sources) Wheeze Unclassified (20 sources) Cough with sputum Unclassified (20 sources) Elevated liver enzymes Unclassified (20 sources) Encounter for screening for malignant neoplasm of colon (Renamed from Special screening for malignant neoplasms, colon) Unclassified (20 sources) Prediabetes Unclassified (20 sources) Myalgia and myositis Unclassified (20 sources) Low back pain (Renamed from LBP (low back pain)) Unclassified (20 sources) Elevated triglycerides with high cholesterol Unclassified (20 sources) NONSPECIFIC FINDINGS ON EXAMINATION OF BLOOD, OTHER ABNORMAL BLOOD CHEMISTRY (790.6) Unclassified (20 sources) Attention deficit disorder (314.00) Unclassified (20 sources) Golfer's elbow (726.32) Unclassified (15 sources) Tobacco abuse (305.1) Unclassified (13 sources) NONSPECIFIC FINDINGS ON EXAMINATION OF BLOOD, NONSPECIFIC ELEVATION OF LEVELS OF TRANSAMINASE OR LACTIC ACID DEHYDROGENASE (LDH) (790.4) Unclassified (12 sources) BMI 33.0-33.9,adult Unclassified (20 sources) Attention deficit Unclassified (8 sources) Elevated WBC count Unclassified (1 source) Low back pain, unspecified; Translations: [Low back pain, unspecified] Onset: 5 Unclassified (1 source) Other intervertebral disc degeneration, lumbar region with discogenic back pain and lower extremity pain; Translations: [Other intervertebral disc degeneration, lumbar region with discogenic back pain and lower extremity pain] Onset: 5 Unclassified (2 sources) Spinal stenosis of lumbar region with neurogenic claudication; Translations: [M48.062 - Spinal stenosis, lumbar region with neurogenic claudication] Past or Other Problems Problem Classification Problem Date Documented Date Episodic/Chronic Administrative/socia l admission (7 sources) Pneumococcal immunization status; Translations: [Prophylactic vaccination against streptococcus pneumoniae and influenza] Resolved: 04-23-2011 02-26-2015 Episodic Attention-deficit conduct and disruptive behavior disorders (11 sources) Attention deficit hyperactivity disorder, predominantly inattentive type; Translations: [Attention deficit disorder (Renamed from ADD (attention deficit disorder))] Resolved: 04-10-2018 08-04-2018 Chronic Comment on above: he feels improving Diabetes mellitus without complication (9 sources) Prediabetes; Translations: [Prediabetes] 04-25-2018 Comment on above: HBA!c 5.7(03/26).Cut down carbnohydrates and follow up every 3 mnths HBA!c 5.7(03/26). 5. 5 on 08-04-18Cut down carbnohydrates and follow up every 3 mnths Essential hypertension (20 sources) Essential hypertension Headache; including migraine (20 sources) Headache; including migraine Inflammatory conditions of male genital organs (20 sources) Prostatocystitis; Translations: [Prostatocystitis] Onset: 06-29-2007 06-29-2007 Episodic Lymphadenitis (20 sources) Lymphadenopathy; Translations: [Lymphadenopathy (Renamed from Adenopathy)] Resolved: 12-23-2010 04-26-2013 Episodic Comment on above: cat scratch on rt ar m, with rt axillary lymphadenopathyon Z pack Other hematologic conditions (20 sources) Raised cardiac enzyme or marker; Translations: [Other specified abnormalities of plasma proteins] Onset: 08-27-2021 08-27-2021 Episodic Other lower respiratory disease (14 sources) Productive cough ; Translations: [Cough with sputum] Resolved: 09-06-2017 04-07-2018 Episodic Other male genital disorders (20 sources) Disorder of male genital organ; Translations: [Hydrocele, unspecified] Onset: 06-29-2007 06-29-2007 Episodic Other non-traumatic joint disorders (14 sources) Pain in elbow; Translations: [Elbow pain, left] Resolved: 04-26-2013 04-26-2013 Episodic Comment on above: went over risk and b enefits an ddid injections Other non-traumatic joint disorders (14 sources) Arthralgia of the ankle and/or foot; Translations: [Pain in joint involving ankle and foot, unspecified laterality] Resolved: 01-02-2010 02-25-2015 Episodic Other screening for suspected conditions (not mental disorders or infectious disease) (20 sources) Laboratory test result abnormal; Translations: [Other specified abnormal findings of blood chemistry] Onset: 08-27-2021 Resolved: 03-13-2023 04-25-2018 Episodic Comment on above: resolving symptoms, repeating labs and LDHelevated moncytes and lymphadenopathy stillelelvated not a s bad is drinking beer again. told need to quit. needs better diet and weight loss. had US in past told need in for Chasity to go over. on lipitor Pneumonia (except that caused by tuberculosis or sexually transmitted disease) (14 sources) Bacterial pneumonia; Translations: [Unspecified bacterial pneumonia] Resolved: 01-02-2010 02-25-2015 Episodic Residual codes; unclassified (20 sources) Influenza-like symptoms; Translations: [Flu-like symptoms] Resolved: 09-06-2017 04-07-2018 Episodic Residual codes; unclassified (12 sources) Needs influenza immunization; Translations: [Need for prophylactic vaccination and inoculation against influenza] Resolved: 04-26-2013 01-14-2015 Episodic Unclassified (20 sources) Unspecified Diagnosis Resolved: 05-29-2014 04-25-2018 Unclassified (20 sources) laceration right thumb- no evidence infection- only option is steri strip and keep clean and dry- call no heal or evidence infection Resolved: 04-23-2011 04-23-2011 Unclassified (18 sources) Ulnar nerve abnormality Unclassified (20 sources) Abnormal laboratory test Unclassified (20 sources) Elevated blood pressure reading Unclassified (20 sources) Blurred vision, bilateral Unclassified (20 sources) Redness of both eyes; Translations: [Other specified disorders of eye and adnexa] 04-25-2018 Unclassified (20 sources) Flu-like symptoms Unclassified (20 sources) BMI 34.0-34.9,adult Unclassified (20 sources) Alcohol abuse, in remission Unclassified (20 sources) Elevated LFTs Unclassified (20 sources) Alcohol abuse, episodic (Renamed from Alcohol abuse, episodic drinking behavior) Unclassified (20 sources) Rt flank pain Unclassified (20 sources) Multilevel degenerative disc disease Unclassified (9 sources) Sciatica associated with disorder of lumbar spine, left Unclassified (20 sources) Elevated TSH Unclassified (20 sources) Abnormal TSH Unclassified (17 sources) Abdominal Pain,LLQ (789.04) Unclassified (8 sources) Requires vaccination; Translations: [Prophylactic vaccination against streptococcus pneumoniae and influenza] Resolved: 04-23-2011 02-26-2015 Unclassified (16 sources) Muscle spasm of right shoulder Unclassified (16 sources) Alcohol abuse - Rehab Resolved: 06-25-2013 06-25-2013 Unclassified (15 sources) Elbow pain, left (719.42) Unclassified (14 sources) Ankle/Foot Pain (719.47) Urinary tract infections (20 sources) Urinary tract infectious disease; Translations: [Lower urinary tract infectious disease] Resolved: 04-26-2013 03-04-2015 Episodic Viral infection (20 sources) Viral disease; Translations: [Viral infection, unspecified] Resolved: 04-23-2011 02-24-2015 Episodic Results Test Name Value Interpretation Reference Range Facility Orthopedic Visit Reporton Orthopedic Visit Report [facility] [address] [place] [address] [address] [place] [address] OFFICE VISIT Date of Service: 06/28/24 MR#: [id number] Acct: [id number] Name: DORIS ANDRADE Rep #: [id number] : 1965 Provider: KASSANDRA Ragsdale Age/Sex: 58/M Location: [facility] Status: Signed Intake Vital Signs 05/08/24 08:20 Height 5 ft 9 in Weight: 197 lb 2 oz BMI 29.1 Intake Visit Reasons: LUMBAR SPINE Chief Complaint: MRI Report Accompanied by: Self Is patient in pain?: Yes Pain scale (1-10): 4 Allergies No Known Allergies Allergy (Verified 06/28/24 08:00) Medications ???Medication ???Instructions ???Recorded ???Confirmed ???Type aspirin 81 mg chewable tablet 81 mg PO DAILY 06/28/16 06/28/24 H istory nitroglycerin 0.4 mg sublingual 0.4 mg sublingual Q5M PRN 07/16/21 06/28/24 History tablet atorvastatin 40 mg tablet 40 mg PO DAILY #30 tabs 07/29/23 0 06/28/24 Rx hydroxyzine HCl 10 mg tablet 10 mg PO TID-QID PRN anxiety #45 0 07/29/23 06/28/24 Rx tabs tamsulosin 0.4 mg capsule 0.4 mg PO DAILY #30 caps 07/29/23 06/28/24 Rx ramipril 10 mg capsule 10 mg PO DAILY #90 caps 10/07/23 0 06/28/24 Rx duloxetine 60 mg capsule,delayed 60 mg PO DAILY #30 caps 11/29/23 0 06/28/24 Rx release ezetimibe 10 mg tablet 10 mg PO DAILY #90 tabs 11/29/23 0 06/28/24 Rx levothyroxine 25 mcg tablet 25 mcg PO DAILY #90 tabs 11/29/23 06/28/24 Rx lorazepam 0.5 mg tablet 1 mg (2 x 0.5 mg) PO DAILY PRN PRN 11/29/23 06/28/24 Rx Anxiety #60 tabs pantoprazole 40 mg tablet,delayed 40 mg PO DAILY #30 tabs 11/29/23 06/28/24 Rx release clopidogrel 75 mg tablet 75 mg PO DAILY #90 tabs 03/06/24 0 06/28/24 Rx cyclobenzaprine 5 mg tablet 5 mg PO TID PRN muscle spasm #45 1 05/06/23 06/28/24 Rx tabs magnesium oxide 400 mg PO QDAY 04/24/24 06/28/24 H istory metoprolol succinate 25 mg 25 mg PO QDAY 04/24/24 06/28/24 Hi story tablet,extended release 24 hr prednisone 10 mg tablet 20 mg (2 x 10 mg) PO BID PRN back 04/24/24 06/28/24 Rx pain 4 days #30 tabs PFSH Medical History Depression Ectasia of artery Hard of hearing Fatty liver CAD (coronary artery disease) ADD (attention deficit disorder) H/O ETOH abuse Anxiety Raynaud disease Paroxysmal atrial fibrillation Essential hypertension Arteriosclerotic heart disease (ASHD) Hypothyroid GERD (gastroesophageal reflux disease) Hx of myocardial infarction Hyperlipidemia LDL goal <130 Surgical History History of cholecystectomy History of heart artery stent Family History Brother Diabetes Thyroid disorder Father Hypertension Aunt Diabetes Mother CVA (cerebral vascular accident) Thyroid disorder Rheumatoid arthritis Sister Thyroid disorder Grandfather Stomach cancer Grandmother Hx of ovarian cancer Diabetes Son Asthma Social History Smoking Status: Current every day smoker tobacco type: cigars per week: 7 alcohol intake: current alcohol intake frequency: 0-2 drinks per day Alcohol type: beer caffeine: Yes Type: coffee Number of servings: 3 HPI LUMBAR SPINE Details: This documentation accurately reflects the service provided and the decisions made by me, KASSANDRA Ragsdale 06/28/24 0756. Part of today???s visit was documented by Carolyn Aceves ATC, acting as scribe. DORIS ANDRADE is a 58 year old M here today for lumbar spine MRI review. Patient rates his pain a 4/10 today. Patient states the pain has stayed the same since his last visit. He denies any recent injections. Says that he was reached out to by pain management however he decided not to go forward with any injections at that time. Patient says that he has not been any physical therapy formally however he has done exercises and stretches on his own and feels like that has been sufficient however he has not noticed any increased benefit with it he says that this has been going on for a while with slowly decreasing his walking tolerance over time. Says that his pain extends from his bilateral lower back down the lateral sides of his legs stops at the knee, denies any symptoms that extend below the knee, says he will also get anterior thigh pain as well. This all worsens with walking. Patient does have a history of prior MIs and takes Plavix, these cardiology. No diabetes. 05/08/2024: DORIS ANDRADE is a 58 year old M here today for lumbar spine pain. Patient states the back has been bothering him for about 3 years and denies any injury/accident that caused the pain to start. Back in the summer lifted a telephone pole which he noticed an increase in his pain. Since then (more content not included)... Normal [facility] Magnetic resonance imaging r eportOrdered By: Kerwin Ruff on 06-14-2024 Study report [facility] Services [address] [place] [address] Spine Lumbar (Routine) MR#: [id number] Acct: [id number] Name: DORIS ANDRADE Rep #: [id number] : 1965 M 58 From: Re Ruff MD PCP: Care Physician,No Primary Status: REG CLI Study:Spine Lumbar (Routine) Date of Exam: 06/11/24 Exam# [id number] Ordering Dr: Elvin Padron PROCEDURE: SPINE LUMBAR (ROUTINE) REASON FOR EXAM: LUMBAR PAIN TECHNIQUE: Multisequence multiplanar MRI of the lumbar spine was performed without IV contrast. COMPARISON: 05/08/2024. FINDINGS: Vertebral body heights are preserved. No suspicious marrow signal abnormality. Grossly similar s shaped lumbar scoliosis. Similar trace grade 1 likely degenerative retrolisthesis at L3-L4. Conus medullaris terminates normally at the L1-L2 disc space. Unremarkable appearance of the cauda equina, allowing for crowding related to spinal canal stenoses as below. L1-2: Diffuse disc bulging with superimposed left subarticular and foraminal disc protrusion. Mild facet arthropathy. Mild/moderate focal spinal canal stenosis. Mild left foraminal stenosis. L2-3: Diffuse disc bulging with superimposed right predominantly paracentral, subarticular, and foraminal disc protrusion. Mild facet arthropathy. Tqsjvewu-or-zaomxm focal spinal canal stenosis with virtually complete effacement of CSF. Mild right foraminal stenosis. L3-4: Retrolisthesis as above with some disc uncovering. Diffuse disc bulging asymmetric to the left, with moderate loss of disc height. Severe focal spinal canal stenosis with complete effacement of CSF. Facet arthropathy and ligamentum flavum hypertrophy with tiny facet joint effusions. Moderate left and mild right foraminal stenosis. Complete effacement of left lateral recess and narrowing of right lateral recess. L4-5: Diffuse disc bulging asymmetric to the left. Facet arthropathy with tiny effusions. Mild focal spinal canal stenosis. Slight narrowing of the left lateral recess. Mild/moderate bilateral foraminal stenoses. L5-S1: No significant spinal canal or foraminal stenosis. Facet arthropathy with tiny effusion on the left. 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 MRI/Spine Lumbar (Routine) IMPRESSION: 1. Multilevel spondylosis as detailed, with spinal canal stenoses up to severe at L3-L4, and foraminal stenoses up to moderate on the left at that level. 2. Additional description as above. Reading Location: [facility] CC: KASSANDRA Ragsdale; No Primary Care Physician ~ Prescription Eyeglass Maker: Signed [facility] Spine Lumbar (Routine)on Spine Lumbar (Routine) [facility] [address] [place] [address] Spine Lumbar (Routine) MR#: [id number] Acct: [id number] Name: DORIS ANDRADE Rep #: [id number] : 1965 M 58 From: Kerwin Ruff MD PCP: Care Physician,No Primary Status: REG CLI Study: Spine Lumbar (Routine) Date of Exam: 06/11/24 Exam# [id number] Ordering Dr: Zena Padron PROCEDURE: SPINE LUMBAR (ROUTINE) REASON FOR EXAM: LUMBAR PAIN TECHNIQUE: Multisequence multiplanar MRI of the lumbar spine was performed without IV contrast. COMPARISON: 05/08/2024. FINDINGS: Vertebral body heights are preserved. No suspicious marrow signal abnormality. Grossly similar s shaped lumbar scoliosis. Similar trace grade 1 likely degenerative retrolisthesis at L3-L4. Conus medullaris terminates normally at the L1-L2 disc space. Unremarkable appearance of the cauda equina, allowing for crowding related to spinal canal stenoses as below. L1-2: Diffuse disc bulging with superimposed left subarticular and foraminal disc protrusion. Mild facet arthropathy. Mild/moderate focal spinal canal stenosis. Mild left foraminal stenosis. L2-3: Diffuse disc bulging with superimposed right predominantly paracentral, subarticular, and foraminal disc protrusion. Mild facet arthropathy. Xlfcssde-pi-lbbjss focal spinal canal stenosis with virtually complete effacement of CSF. Mild right foraminal stenosis. L3-4: Retrolisthesis as above with some disc uncovering. Diffuse disc bulging asymmetric to the left, with moderate loss of disc height. Severe focal spinal canal stenosis with complete effacement of CSF. Facet arthropathy and ligamentum flavum hypertrophy with tiny facet joint effusions. Moderate left and mild right foraminal stenosis. Complete effacement of left lateral recess and narrowing of right lateral recess. L4-5: Diffuse disc bulging asymmetric to the left. Facet arthropathy with tiny effusions. Mild focal spinal canal stenosis. Slight narrowing of the left lateral recess. Mild/moderate bilateral foraminal stenoses. L5-S1: No significant spinal canal or foraminal stenosis. Facet arthropathy with tiny effusion on the left. 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 MRI/Spine Lumbar (Routine) IMPRESSION: 1. Multilevel spondylosis as detailed, with spinal canal stenoses up to severe at L3-L4, and foraminal stenoses up to moderate on the left at that level. 2. Additional description as above. Reading Location: [id number] CC: KASSANDRA Ragsdale; No Primary Care Physician Prescription Eyeglass Maker: Signed [facility] HEALTH 06-04-2024 ALLIED HEALTH HNO ID: [id number] Author: ASCENCION KAUR Tech Service: ? Author Type: Dust Handler Type: [facility] Filed: 06/04/2024 05:25 Note Text: Radiology Service Progress Note PATIENT NAME: Doris Andrade DATE OF SERVICE: June 04, 2024 TIME: 5:25 AM PATIENT IDENTITY VERIFICATION COMPLETED USING TWO (2) IDENTIFIERS: Name and Date of confirmed by patient verbally. FALL SCREENING: Has the patient had 2 falls in the last year or 1 fall with injury or currently using an Ambulatory Assistive Device (Walker, Cane, Wheelchair, Crutches, etc.)? Emergency Room Patient: Screened in ED PATIENT GENDER DATA: Assigned male at PATIENT RELEVANT IMPLANT DATA REVIEWED: Not Applicable PATIENT PRESENTS WITH AN IMPLANTABLE OR ATTACHED DANCE COSTUME DESIGNER: No RADIOLOGY DEPARTMENT: General X-ray: Exam(s) Completed: Chest X-Ray PERIPHERAL IV DATA: Not applicable SIGNED BY: Yecenia Ashley June 04, 2024 5:25 AM [facility] Basic metabolic 2000 panelon 06-04-2024 Anion gap [Moles/Vol] 11 mmol/L Normal 8-15 [facility] Comment on above: Order Comment: Speci men Type: BLOOD SPECIMEN Ordering Facility: [facility] Address: [address] [place] [address] Performed By: #### L [id number], 73815-1 #### [facility] CLIA [id number] [address] [place] [address] [place] Calcium [Mass/Vol] 9.8 mg/dL Normal 8.5-10.2 [facility] Comment on above: Order Comment: Speci men Type: BLOOD SPECIMEN Ordering Facility: [facility] Address: [address] [place] [address] Performed By: #### L [id number], 24670-0 #### [facility] CLIA [id number] [address] [place] [address] [place] Chloride [Moles/Vol] 101 mmol/L Normal 98-107 [facility] Comment on above: Order Comment: Speci men Type: BLOOD SPECIMEN Ordering Facility: [facility] Address: [address] [place] [address] Performed By: #### L LB3430, 20152-7 #### [facility] CLIA [id number] [address] [place] [address] [place] CO2 [Moles/Vol] 26 mmol/L Normal 22-30 [facility] Comment on above: Order Comment: Speci men Type: BLOOD SPECIMEN Ordering Facility: [facility] Address: [address] [place] [address] Performed By: #### L ZS1903, 28555-4 #### [facility] CLIA [id number] [address] [place] [address] [place] Creatinine [Mass/Vol] 0.97 mg/dL Normal 0.73-1.22 [facility] Comment on above: Order Comment: Speci men Type: BLOOD SPECIMEN Ordering Facility: [facility] Address: [address] [place] [address] Performed By: #### L ZO7750, 42532-4 #### [facility] CLIA [id number] [address] [place] Creatinine and Glomerular filtration rate.predicted panel (S/P/Bld) 91 mL/min/1.73m??? Normal >=60 [facility] Comment on above: Order Comment: Speci men Type: BLOOD SPECIMEN Ordering Facility: [facility] Address: [address] [place] [address] Result Comment: Diane mated Glomerular Filtration Rate (eGFR) is calculated using the 2020 CKD-EPI creatinine equation. This equation utilizes serum creatinine, sex, and age as parameters. The creatinine assay has traceable calibration to isotope dilution-mass spectrometry. Refer to KDIGO guidelines for clinical interpretation. In patients with unstable renal function, e.g. those with acute kidney injury, the eGFR may not accurately reflect actual GFR. Performed By: #### L TA4018, 67795-6 #### [facility] CLIA [id number] [address] [place] [address] [place] Glucose [Mass/Vol] 99 mg/dL Normal 74-99 [facility] Comment on above: Order Comment: Candy torres Type: BLOOD SPECIMEN Ordering Facility: [facility] Address: [address] [place] [address] Result Comment: The [place] Diabetes Association (ADA) provides guidance for cutoff values for fasting glucose and random glucose. The ADA defines fasting as no caloric intake for at least 8 hours. Fasting plasma glucose results between 100 to 125 mg/dL indicate increased risk for diabetes (prediabetes). Fasting plasma glucose results greater than or equal to 126 mg/dL meet the criteria for diagnosis of diabetes. In the absence of unequivocal hyperglycemia, results should be confirmed by repeat testing. In a patient with classic symptoms of hyperglycemia or hyperglycemic crisis, random plasma glucose results greater than or equal to 200 mg/dL meet the criteria for diagnosis of diabetes. Reference: Standards of Medical Care in Diabetes 2016, [place] [employer] Association. Diabetes Care. 2016.39(Suppl 1). Performed By: #### L FD9637, 85690-8 #### [facility] CLIA [id number] [address] [place] [address] [place] Potassium [Moles/Vol] 4.7 mmol/L Normal 3.7-5.1 [facility] Comment on above: Order Comment: Candy torres Type: BLOOD SPECIMEN Ordering Facility: [facility] Address: [address] [place] [address] Performed By: #### L HY0475, 40458-8 #### [facility] CLIA [id number] [address] [place] [address] [place] Sodium [Moles/Vol] 138 mmol/L Normal 136-144 [facility] Comment on above: Order Comment: Candy torres Type: BLOOD SPECIMEN Ordering Facility: [facility] Address: [address] [place] [address] Performed By: #### L ZX1870, 29539-1 #### [facility] CLIA [id number] [address] STATES [facility] Urea nitrogen [Mass/Vol] 14 mg/dL Normal 01-02 [facility] Comment on above: Order Comment: Speci men Type: BLOOD SPECIMEN Ordering Facility: [facility] Address: [address] [place] [address] Performed By: #### L DT0412, 51981-9 #### [facility] CLIA [id number] [address] [place] CBC W Auto Differential pane l (Bld)on 06-04-2024 Basophils (Bld) [#/Vol] 0.05 10*3/uL Normal <0.11 [facility] Comment on above: Order Comment: Speci men Type: BLOOD SPECIMENOrdering Facility: [facility] Address: [address] [place] [address] Performed By: #### 5 7021-8 ####[facility] [id number] [address] [place] Basophils/100 WBC (Bld) 0.6 % Normal [facility] Comment on above: Order Comment: Speci men Type: BLOOD SPECIMENOrdering Facility: [facility] Address: [address] [place] [address] Performed By: #### 5 7021-8 ####[facility] [id number] [address] Differential cell count method Nom (Bld) Auto Normal [facility] Comment on above: Order Comment: Speci men Type: BLOOD SPECIMENOrdering Facility: [facility] Address: [address] [place] [address] Performed By: #### 5 7021-8 ####[facility] [id number] [place] [address] [place] Eosinophils (Bld) [#/Vol] 0.17 10*3/uL Normal <0.46 [facility] Comment on above: Order Comment: Speci men Type: BLOOD SPECIMENOrdering Facility: [facility] Address: [address] [place] [address] Performed By: #### 5 7021-8 ####[facility] [id number] [place] [address] [place] Eosinophils/100 WBC (Bld) 2.1 % Normal [facility] Comment on above: Order Comment: Speci men Type: BLOOD SPECIMENOrdering Facility: [facility] Address: [address] [place] [address] Performed By: #### 5 7021-8 ####[facility] [id number] [place] [address] [place] Erythrocyte distribution width (RBC) [Ratio] 13.3 % Normal 11.5-15.0 [facility] Comment on above: Order Comment: Speci men Type: BLOOD SPECIMENOrdering Facility: [facility] Address: [address] [place] [address] Performed By: #### 5 7021-8 ####[facility] [id number] [place] [address] [place] Hematocrit (Bld) [Volume fraction] 43.9 % Normal 39.0-51.0 [facility] Comment on above: Order Comment: Speci men Type: BLOOD SPECIMENOrdering Facility: [facility] Address: [address] [place] [address] Performed By: #### 5 7021-8 ####[facility] [id number] [place] [address] [place] Hemoglobin (Bld) [Mass/Vol] 15.3 g/dL Normal 13.0-17.0 [facility] Comment on above: Order Comment: Speci men Type: BLOOD SPECIMENOrdering Facility: [facility] Address: [address] [place] [address] Performed By: #### 5 7021-8 ####[facility] [id number] [place] [address] [place] Immature granulocytes (Bld) [#/Vol] 10*3/uL Normal <0.10 [facility] Comment on above: Order Comment: Speci men Type: BLOOD SPECIMENOrdering Facility: [facility] Address: [address] [place] [address] Performed By: #### 5 7021-8 ####[facility] [id number] [address] Immature granulocytes/100 WBC (Bld) 0.1 % Normal [facility] Comment on above: Order Comment: Speci men Type: BLOOD SPECIMENOrdering Facility: [facility] Address: [address] [place] [address] Performed By: #### 5 7021-8 ####[facility] [id number] [address] [place] Lymphocytes (Bld) [#/Vol] 2.21 10*3/uL Normal 1.00-4.00 [facility] Comment on above: Order Comment: Speci men Type: BLOOD SPECIMENOrdering Facility: [facility] Address: [address] [place] [address] Performed By: #### 5 7021-8 ####[facility] [id number] [address] Lymphocytes/100 WBC (Bld) 27.1 % Normal [facility] Comment on above: Order Comment: Speci men Type: BLOOD SPECIMENOrdering Facility: [facility] Address: [address] [place] [address] Performed By: #### 5 7021-8 ####[facility] [id number] [address] [place] MCH (RBC) [Entitic mass] 31.8 pg Normal 26.0-34.0 [facility] Comment on above: Order Comment: Speci men Type: BLOOD SPECIMENOrdering Facility: [facility] Address: [address] [place] [address] Performed By: #### 5 7021-8 ####[facility] [id number] [address] [place] [facility] MCHC (RBC) [Mass/Vol] 34.9 g/dL Normal 30.5-36.0 [facility] Comment on above: Order Comment: Speci men Type: BLOOD SPECIMENOrdering Facility: [facility] Address: [address] [place] [address] Performed By: #### 5 7021-8 ####[facility] [id number] [place] [address] [place] MCV (RBC) [Entitic vol] 91.3 fL Normal 80.0-100.0 [facility] Comment on above: Order Comment: Speci men Type: BLOOD SPECIMENOrdering Facility: [facility] Address: [address] [place] [address] Performed By: #### 5 7021-8 ####[facility] [id number] [place] [address] [place] Monocytes (Bld) [#/Vol] 0.80 10*3/uL Normal <0.87 [facility] Comment on above: Order Comment: Speci men Type: BLOOD SPECIMENOrdering Facility: [facility] Address: [address] [place] [address] Performed By: #### 5 7021-8 ####[facility] [id number] [place] [address] [place] Monocytes/100 WBC (Bld) 9.8 % Normal [facility] Comment on above: Order Comment: Speci men Type: BLOOD SPECIMENOrdering Facility: [facility] Address: [address] [place] [address] Performed By: #### 5 7021-8 ####[facility] [id number] [place] [address] [place] Neutrophils (Bld) [#/Vol] 4.93 10*3/uL Normal 1.45-7.50 [facility] Comment on above: Order Comment: Speci men Type: BLOOD SPECIMENOrdering Facility: [facility] Address: [address] [place] [address] Performed By: #### 5 7021-8 ####[facility] [id number] [place] [address] [place] Neutrophils/100 WBC (Bld) 60.3 % Normal [facility] Comment on above: Order Comment: Speci men Type: BLOOD SPECIMENOrdering Facility: [facility] Address: [address] [facility] [place] [address] Performed By: #### 5 7021-8 ####[facility] [id number] [place] [address] [place] Nucleated RBC (Bld) [#/Vol] 10*3/uL Normal <0.01 [facility] Comment on above: Order Comment: Speci men Type: BLOOD SPECIMENOrdering Facility: [facility] Address: [address] [place] [address] Performed By: #### 5 7021-8 ####[facility] [id number] [place] [address] [place] Nucleated RBC/100 WBC (Bld) [Ratio] 0.0 /100 WBC Normal [facility] Comment on above: Order Comment: Speci men Type: BLOOD SPECIMENOrdering Facility: [facility] Address: [address] [place] [address] Performed By: #### 5 7021-8 ####[facility] [id number] [place] [address] [place] Platelet mean volume (Bld) [Entitic vol] 9.1 fL Normal 9.0-12.7 [facility] Comment on above: Order Comment: Speci men Type: BLOOD SPECIMENOrdering Facility: [facility] Address: [address] [place] [address] Performed By: #### 5 7021-8 ####[facility]ATORYCLIA [id number] [place] [address] [place] Platelets (Bld) [#/Vol] 248 10*3/uL Normal 150-400 [facility] Comment on above: Order Comment: Speci men Type: BLOOD SPECIMENOrdering Facility: [facility] Address: [address] [place] [address] [place] [address] Performed By: #### 5 7021-8 ####[facility] LABORATORYCLIA [id number] [place] [address] [place] RBC (Bld) [#/Vol] 4.81 10*6/uL Normal 4.20-6.00 [facility] Comment on above: Order Comment: Speci men Type: BLOOD SPECIMENOrdering Facility: [facility] Address: [address] [id number] Performed By: #### 5 7021-8 ####[facility] LABORATORYCLIA [id number] [address] WBC (Bld) [#/Vol] 8.17 10*3/uL Normal 3.70-11.00 [facility] Comment on above: Order Comment: Speci men Type: BLOOD SPECIMENOrdering Facility: [facility] Address: [address] [place], [place] [id number] Performed By: #### 5 7021-8 ####[facility]ORATORYCLIA [id number] [address] ED NOTEon 06-04-2024 ED NOTE HNO ID: [id number] Author: GREG KENNEDY RN Service: ? Author Type: Registered Nurse Type: ED Notes Filed: 06/04/2024 07:47 Note Text: Discharge instructions d/w pt at bedside. Stated understanding with no further questions for this nurse. Encouraged f/u with PCP and referring doctors given. Stated understanding. [facility] ED NOTE HNO ID: [id number] Author: GREG KENNEDY RN Service: ? Author Type: Registered Nurse Type: ED Notes Filed: 06/04/2024 07:27 Note Text: Received pt report from Delaney (RN) [facility] ED NOTE HNO ID: [id number] Author: JANKI LOCK DO Service: Emergency Medicine Author Type: Physician Type: ED Notes Filed: 06/04/2024 16:26 Note Text: 58M chest pain, GERD. EKG ok. HST. Hx NSTEMI and CABG. Can go home if he would like Clinical Impressions as of 06/04/24 1625 Chest pain, unspecified type Encounter for medical screening examination Patient required no acute or tender to my care. Patient was discharged per prior provider. Janki Lock DO [facility] ED PROV NOTEon 06-04-2024 ED PROV NOTE HNO ID: [id number] Author: KAYLA NUÑEZ DO Service: Emergency Medicine Author Type: Physician Type: ED Provider Notes Filed: 06/04/2024 07:42 Note Text: ED Provider Note Patient Name: Doris Andrade : 1965 SERVICE DATE: 06/04/24 History Patient presents with: Chest Pain: Patient presents to triage from work with chest pain starting at 0000 The patient presents emergency department for chest pain, has a history of CAD, CABG August 2021, NSTEMI, has history of hypertension. Works at [employer], states started having mid lower chest pain, feels similar to when he had an NSTEMI, no shortness of breath no nausea vomiting no diaphoresis or radiation of the pain. PAST MEDICAL HISTORY Diagnosis Date Alcohol abuse, episodic Anxiety Attention deficit disorder without mention of hyperactivity Class 2 severe obesity due to excess calories with serious comorbidity and body mass index (BMI) of 37.0 to 37.9 in adult ([facility]) Coronary artery disease Coronary atherosclerosis of unspecified type of vessel, [place] or graft Dr. Priest Fatty liver GERD (gastroesophageal reflux disease) Hard of hearing AL (myocardial infarction) ([facility]) 2005 Also 05/2021 and 08/2021 Pure hypercholesterolemia Status post left heart catheterization Tobacco use disorder PAST SURGICAL HISTORY Procedure Laterality Date CABG (1) VEIN GRAFT AND ARTERIAL GRAFT 09/01/2021 SENA to LAD CHOLECYSTECTOMY 08/2008 COLONOSCOPY GEN ANES 2017 reportedly normal PAST SURGICAL HISTORY OF 2004 cardiac stent placement FAMILY HISTORY Problem Relation Age of Onset Diabetes Father Hypertension Father Thyroid Mother Rheumatologic disease Mother RA Stroke Mother No Known Problems Sister Diabetes Brother Diabetes Paternal Grandmother Diabetes Paternal Aunt No Known Problems Sister No Known Problems Sister Asthma Son Social History Tobacco Use Smoking status: Former Current packs/day: 0.00 Average packs/day: 1 pack/day for 19.0 years (19.0 ttl pk-yrs) Types: Cigars, Cigarettes Start date: 2002 Quit date: 2021 Years since quittin.1 Smokeless tobacco: Never Tobacco comments: 1 cigar per week Vaping Use Vaping status: Never Used Substance and Sexual Activity Alcohol use: Not Currently Alcohol/week: 14.0 - 21.0 standard drinks of alcohol Types: 14 - 21 Cans of Beer (12oz) per week Comment: Quit in August 2021 Drug use: Not Currently Types: Marijuana Comment: marijuana in high school Sexual activity: Yes Partners: Female ALLERGIES No Known Allergies Review of Systems Constitutional: See HPI Physical Exam Vitals [06/04/24 0513] BP Pulse Temp Temp src Resp SpO2 Weight Height 153/74 63 36.7 ?C (98 ?F) Oral 19 98 % 89.7 kg (197 lb 12 oz) 1.753 m (5' 9) Physical Exam Constitutional: General: He is not in acute distress. Appearance: He is well-developed. HENT: Head: Normocephalic and atraumatic. Eyes: Conjunctiva/sclera: Conjunctivae normal. Pupils: Pupils are equal, round, and reactive to light. Neck: Trachea: No tracheal deviation. Cardiovascular: Rate and Rhythm: Normal rate and regular rhythm. Heart sounds: No murmur heard. Pulmonary: Effort: Pulmonary effort is normal. Breath sounds: No stridor. No wheezing or rales. Abdominal: General: Bowel sounds are normal. There is no distension. Palpations: Abdomen is soft. Tenderness: There is no abdominal tenderness. Musculoskeletal: General: No deformity. Normal range of motion. Cervical back: Normal range of motion and neck supple. Skin: General: Skin is warm and dry. Capillary Refill: Capillary refill takes less than 2 seconds. Findings: No rash. Neurological: Mental Status: He is alert. Sensory: No sensory deficit. Motor: No abnormal muscle tone. Diagnostic Testing ED Labs Ordered and Reviewed HIGH SENSITIVITY TROPONIN T (INITIAL) - Normal BASIC METABOLIC PANEL - Normal HIGH SENSITIVITY TROPONIN T (SECOND) - Normal COMPLETE BLOOD COUNT AND DIFFERENTIAL Procedures ED Course / Clinical Impression Clinical Impressions as of 06/04/24 0742 Chest pain, unspecified type Encounter for medical screening examination MDM / Disposition / Plan The patient presented to ED for chest pain, vital stable afebrile, no leukocytosis hemoglobin stable EKG interpreted by myself showed no STEMI or acute ischemic change. Troponins negative ruling out ACS patient feels much better, chest x-ray showed no infiltrates or consolidations, feels well after GI cocktail will DC History and Record Review External record(s) reviewed: prior inpatient record, prior outpatient record, prior labs/imaging and immunization history. Differential Diagnoses - CAD, ACS, NSTEMI, STEMI, PE, GERD, pneumonia, pneumothorax Management Management of the patient was discussed with:see ED course Radiology Reports XR CHEST 1V FRONTAL PORT Final Result IMPRESSION: (more content not included)... Normal [facility] EKGon 06-04-2024 Electrocardiogram Ventricular Rate : 6 7 BPM Atrial Rate : 67 BPM P-R Interval : 168 ms QRS Duration : 96 ms Q-T Interval : 408 ms QTC Calculation(Bazett) : 431 ms Calculated P Ball [place] : 51 degrees Calculated R Ball [place] : 64 degrees Calculated T Ball [place] : 76 degrees NORMAL SINUS RHYTHM INCOMPLETE RIGHT BUNDLE BRANCH BLOCK BORDERLINE ECG No Stemi Confirmed by KAYLA NUÑEZ DO ([id number]) on 06/04/2024 7:58:36 AM NAME : DORIS ANDRADE PID : [id number] : 1965 Gender : Male Race : ORD : Procedure Date : Jun 04 2024 05:11:46 Edit Date : Jun 04 2024 07:58:36 Diagnosis: NORMAL SINUS RHYTHM INCOMPLETE RIGHT BUNDLE BRANCH BLOCK BORDERLINE ECG No Stemi Confirmed by KAYLA NUÑEZ DO ([id number]) on 06/04/2024 7:58:36 AM Test Reason : Location : 1 : ER ED Overread By : KAYLA NUÑEZ DO Edited By : KAYLA NUÑEZ DO Referred By : , Acquired by : mm, Normal [facility] HIGH SENSITIVITY TROPONIN T (INITIAL)on 06-04-2024 Troponin T.cardiac High sensitivity method [Mass/Vol] 8 ng/L Normal <[address] [place] [address] Comment on above: Order Comment: Candy torres Type: BLOOD SPECIMEN [facility]ing Facility[facility] Address: [address] [place] [address] Performed By: #### L [id number], 62652-5 #### [facility] CLIA [id number] [address] HIGH SENSITIVITY TROPONIN T (SECOND)on 06-04-2024 Troponin T.cardiac High sensitivity method [Mass/Vol] 7 ng/L Normal <[address] [place] [address] Comment on above: Order Comment: Candy torres Type: BLOOD SPECIMEN [facility] Address: [address] [place] [address] Performed By: #### L [id number] #### [facility] CLIA [id number] [address] [place] XR CHEST 1V FRONTAL PORTon 0 06-04-2024 XR CHEST 1V FRONTAL PORT * * *Final Report* * * DATE OF EXAM: Jun 04 2024 5:25AM MDX [id number] - XR CHEST 1V FRONTAL PORT / PROCEDURE REASON: Chest pain * * * * Physician Interpretation * * * * EXAMINATION: CHEST RADIOGRAPH (PORTABLE SINGLE VIEW AP) Exam Date/Time: 06/04/2024 5:25 AM CLINICAL HISTORY: Chest pain MQ: XCPR_5 Comparison: 06/08/2022 RESULT: Lines, tubes, and devices: Median sternotomy wires and surgical clips are present. Cardiac monitoring leads are present overlying the patient. Lungs and pleura: There is no focal lobar consolidation, gross edema or pneumothorax. Cardiomediastinal silhouette: Stable normal-sized cardiomediastinal silhouette. IMPRESSION: No radiographic evidence of an acute cardiopulmonary process. Prescription Eyeglass Maker: JEROD Transcribe Date/Time: Jun 04 2024 7:03A Dictated by : GREG BELL MD This examination was interpreted and the report reviewed and electronically signed by: GREG BELL MD on Jun 04 2024 7:05AM EST [id number] [facility] L/S Spine Min 4 Viewson 04-12 L/S Spine Min 4 Views [facility] Services [address] [place] [address] [id number] L/S Spine Min 4 Views MR#: [id number] Acct: [id number] Name: DORIS ANDRADE Rep #: [id number] : 1965 M Verenice From: Robson Hirsch PCP: Status: DEP AMB Study: L/S Spine Min 4 Views Date of Exam: 05/08/24 Exam# [id number] Ordering Dr: Zena Padron PROCEDURE: L/S SPINE MIN 4 VIEWS REASON FOR EXAM: Pain. TECHNIQUE: Four view lumbar spine series including lateral flexion and extension views. COMPARISON: None provided. RAD/L/S Spine Min 4 Views IMPRESSION: Right upper quadrant abdominal surgical clips are seen. Mild prominence of small bowel is seen, noted centrally. Minimal sacroiliac joint degenerative changes are noted. Mild right and minimal left hip joint degenerative changes are seen. Lumbar levoscoliosis is centered about the L2 level. Degenerative changes are seen throughout the lumbar spine, with moderate to moderately severe disc narrowing at L2-L3 and L3-L4 levels, and at least mild disc narrowing at L4-L5 and L1-L2 levels. No evidence of spondylolysis or spondylolisthesis. No dynamic instability is seen on lateral flexion and extension views. Lower lumbar posterior facet hypertrophy is also seen. Reading Location: [id number] CC: KASSANDRA Ragsdale Prescription Eyeglass Maker: Signed Normal [facility] Orthopedic Visit Reporton Orthopedic Visit Report [facility] [address] [place] [address] [place] [address] OFFICE VISIT Date of Service: 05/08/24 MR#: [id number] Acct: [id number] Name: DORIS ANDRADE Rep #: [id number] : 1965 Provider: KASSANDRA Ragsdale Age/Sex: 58/M Location: [facility] Status: Signed Intake Vital Signs 04/30/24 21:22 05/08/24 08:20 Height 5 ft 9 in 5 ft 9 in Weight: 197 lb 2 oz BMI 29.1 Intake Visit Reasons: LUMBAR SPINE Chief Complaint: Lumbar Spine Pain Accompanied by: Self Is patient in pain?: Yes Pain scale (1-10): 5 Allergies No Known Allergies Allergy (Verified 05/08/24 08:21) Medications ???Medication ???Instructions ???Recorded ???Confirmed ???Type aspirin 81 mg chewable tablet 81 mg PO DAILY 06/28/16 05/08/24 History nitroglycerin 0.4 mg sublingual 0.4 mg sublingual Q5M PRN 07/16/21 05/08/24 History tablet atorvastatin 40 mg tablet 40 mg PO DAILY #30 tabs 07/29/23 05/08/24 Rx hydroxyzine HCl 10 mg tablet 10 mg PO TID-QID PRN anxiety #45 07/29/23 05/08/24 Rx tabs tamsulosin 0.4 mg capsule 0.4 mg PO DAILY #30 caps 07/29/23 05/08/24 Rx ramipril 10 mg capsule 10 mg PO DAILY #90 caps 10/07/23 05/08/24 Rx duloxetine 60 mg capsule,delayed 60 mg PO DAILY #30 caps 11/29/23 05/08/24 Rx release ezetimibe 10 mg tablet 10 mg PO DAILY #90 tabs 11/29/23 05/08/24 Rx levothyroxine 25 mcg tablet 25 mcg PO DAILY #90 tabs 11/29/23 05/08/24 Rx lorazepam 0.5 mg tablet 1 mg (2 x 0.5 mg) PO DAILY PRN PRN 11/29/23 05/08/24 Rx Anxiety #60 tabs pantoprazole 40 mg tablet,delayed 40 mg PO DAILY #30 tabs 11/29/23 05/08/24 Rx release clopidogrel 75 mg tablet 75 mg PO DAILY #90 tabs 03/06/24 05/08/24 Rx cyclobenzaprine 5 mg tablet 5 mg PO TID PRN muscle spasm #45 03/06/24 05/08/24 Rx tabs magnesium oxide 400 mg PO QDAY 04/24/24 05/08/24 History metoprolol succinate 25 mg 25 mg PO QDAY 04/24/24 05/08/24 History tablet,extended release 24 hr prednisone 10 mg tablet 20 mg (2 x 10 mg) PO BID PRN back 04/24/24 05/08/24 Rx pain 4 days #30 tabs PFSH Medical History Depression Ectasia of artery Hard of hearing Fatty liver CAD (coronary artery disease) ADD (attention deficit disorder) H/O ETOH abuse Anxiety Raynaud disease Paroxysmal atrial fibrillation Essential hypertension Arteriosclerotic heart disease (ASHD) Hypothyroid GERD (gastroesophageal reflux disease) Hx of myocardial infarction Hyperlipidemia LDL goal <130 Surgical History History of cholecystectomy History of heart artery stent Family History Brother Diabetes Thyroid disorder Father Hypertension Aunt Diabetes Mother CVA (cerebral vascular accident) Thyroid disorder Rheumatoid arthritis Sister Thyroid disorder Grandfather Stomach cancer Grandmother Hx of ovarian cancer Diabetes Son Asthma Social History Smoking Status: Current every day smoker tobacco type: cigars per week: 7 alcohol intake: current alcohol intake frequency: 0-2 drinks per day Alcohol type: beer caffeine: Yes Type: coffee Number of servings: 3 HPI LUMBAR SPINE Details: This documentation accurately reflects the service provided and the decisions made by me, KASSANDRA Ragsdale 05/08/24 0815. Part of today???s visit was documented by Carolyn Aceves ATC, acting as scribe. DORIS ANDRADE is a 58 year old M here today for lumbar spine pain. Patient states the back has been bothering him for about 3 years and denies any injury/accident that caused the pain to start. Back in the summer lifted a telephone pole which he noticed an increase in his pain. Since then he says that his pain initially did improve however over the last several months the pain has been worsening.Patient describes the pain on both sides of the lumbar spine. He complains of radiating pain and tingling down both legs. Says that the pain starts in his bilateral lower back equal on both sides and then extends down into his lateral hips and down the lateral side of his leg denies any symptoms below the knee. Says that he does have pain on both sides however the right leg pain is worse than the left. He denies any numbness down his legs. Patient says that his pain increases with lifting, walking, sitting. He has noticed an increased pain with walking which has worsened since the summer. He can only walk a couple of blocks before needing to sit down. Says that the pain does improve when leaning forward on a shopping cart. Says that he cannot go as far in a grocery store without pain if he did not have the shopping cart to lean on. He also has a very physical job which requires him to (more content not included)... [facility] ED NOTEon 04-30-2024 ED NOTE HNO ID: [id number] Author: KIKO PAGE RN Service: ? Author Type: Registered Nurse Type: ED Notes Filed: 04/30/2024 09:56 Note Text: Pt given discharge instructions, pt questions answered and pt denies any further questions at time of discharge. Pt ambulates out of dept with a steady gait. Work note given 3 rx sent to [facility] in [facility] ED NOTE HNO ID: [id number] Author: KIKO PAGE RN Service: ? Author Type: Registered Nurse Type: ED Notes Filed: 04/30/2024 09:24 Note Text: Dr nuñez at bedside for exam Normal [facility] ED NOTE HNO ID: [id number] Author: KIKO PAGE RN Service: ? Author Type: Registered Nurse Type: ED Notes Filed: 04/30/2024 09:25 Note Text: Pt has chronic back pain, but is having an exacerbation of pain in the r side, pain is radiating down into r leg. Pt denies any numbness or tingling at this time, earlier pt was having n/t and saw his pcp who gave him a steriod shot. Now pt is having pain that feels like bone on bone pain. Normal [facility] ED PROV NOTEon 04-30-2024 ED PROV NOTE HNO ID: [id number] Author: NITIN NUÑEZ DO Service: Emergency Medicine Author Type: Physician Type: ED Provider Notes Filed: 04/30/2024 09:50 Note Text: ED Provider Note Patient Name: Doris Andrade : 1965 SERVICE DATE: 04/30/24 History Patient presents with: Back Pain Patient is here for evaluation of right-sided low back pain. He has a history of chronic low back pain. He says over the past couple of days his symptoms have acutely worsened. He says typically the right-sided low back pain radiates down the back of his right leg. This seems more focal. He says he saw what sounds like a pain management physician who did a joint injection in his right hip a couple of weeks ago. He said this did not seem to help. He has no numbness or paresthesias in the lower extremity. Denies any focal weakness. Denies urine or fecal incontinence. Denies urine retention. He does frequent bending and heavy lifting at work. Denies any recent injuries. No other symptoms or concerns. PAST MEDICAL HISTORY Diagnosis Date Alcohol abuse, episodic Anxiety Attention deficit disorder without mention of hyperactivity Class 2 severe obesity due to excess calories with serious comorbidity and body mass index (BMI) of 37.0 to 37.9 in adult (HCC) Coronary artery disease Coronary atherosclerosis of unspecified type of vessel, [place] or graft Dr. Amalfitano Fatty liver GERD (gastroesophageal reflux disease) Hard of hearing AL (myocardial infarction) (HCC) 2005 Also 05/2021 and 08/2021 Pure hypercholesterolemia Status post left heart catheterization Tobacco use disorder PAST SURGICAL HISTORY Procedure Laterality Date CABG (1) VEIN GRAFT AND ARTERIAL GRAFT 09/01/2021 SENA to LAD CHOLECYSTECTOMY 08/2008 COLONOSCOPY GEN ANES 2017 reportedly normal PAST SURGICAL HISTORY OF 2004 cardiac stent placement FAMILY HISTORY Problem Relation Age of Onset Diabetes Father Hypertension Father Thyroid Mother Rheumatologic disease Mother RA Stroke Mother No Known Problems Sister Diabetes Brother Diabetes Paternal Grandmother Diabetes Paternal Aunt No Known Problems Sister No Known Problems Sister Asthma Son Social History Tobacco Use Smoking status: Former Current packs/day: 0.00 Average packs/day: 1 pack/day for 19.0 years (19.0 ttl pk-yrs) Types: Cigars, Cigarettes Start date: 2002 Quit date: 2021 Years since quittin.0 Smokeless tobacco: Never Tobacco comments: 1 cigar per week Vaping Use Vaping status: Never Used Substance and Sexual Activity Alcohol use: Not Currently Alcohol/week: 14.0 - 21.0 standard drinks of alcohol Types: 14 - 21 Cans of Beer (12oz) per week Comment: Quit in August 2021 Drug use: Not Currently Types: Marijuana Comment: marijuana in high school Sexual activity: Yes Partners: Female ALLERGIES No Known Allergies Review of Systems Constitutional: Negative for chills, fatigue and fever. HENT: Negative for congestion, ear pain, rhinorrhea and sore throat. Respiratory: Negative for cough, shortness of breath and wheezing. Cardiovascular: Negative for chest pain, palpitations and leg swelling. Gastrointestinal: Negative for abdominal pain, diarrhea, nausea and vomiting. Endocrine: Negative for cold intolerance, heat intolerance, polydipsia and polyphagia. Genitourinary: Negative for dysuria, frequency and testicular pain. Musculoskeletal: Positive for back pain. Negative for arthralgias and neck pain. Skin: Negative for color change, pallor and rash. Neurological: Negative for speech difficulty, light-headedness, numbness and headaches. Hematological: Negative for adenopathy. Does not bruise/bleed easily. Physical Exam Vitals [04/30/24 0919] BP Pulse Temp Temp src Resp SpO2 Weight Height 137/82 56 (!) 35.9 ?C (96.6 ?F) Temporal Art 18 99 % 91.2 kg (201 lb) -- Physical Exam Vitals and nursing note reviewed. Constitutional: General: He is not in acute distress. Appearance: He is well-developed. He is not toxic-appearing. HENT: Head: Normocephalic and atraumatic. Nose: No congestion or rhinorrhea. Mouth/Throat: Mouth: Mucous membranes are moist. Eyes: General: No scleral icterus. Right eye: No discharge. Left eye: No discharge. Conjunctiva/sclera: Conjunctivae normal. Pupils: Pupils are equal, round, and reactive to light. Neck: Vascular: No JVD. Trachea: No tracheal deviation. Cardiovascular: Rate and Rhythm: Normal rate and regular rhythm. Pulses: Normal pulses. Heart sounds: Normal heart sounds. No murmur heard. Pulmonary: Effort: Pulmonary effort is normal. No respiratory distress. Breath sounds: Normal breath sounds. No stridor. No wheezing or rhonchi. Abdominal: General: There is no distension. Palpations: Abdomen is soft. There is no mass. Tenderness: There is no abdominal tenderness. There is no guarding or rebound. Musculoskeletal (more content not included)... [facility] Office Visit (ELIAZAR ) -------- DORIS ANDRADE ([id number]) 1965 M Date Time Provider Department 04/23/24 10:00 AM ROBSON BECK During your visit today, we recorded the following information about you: Pulse Respiration Blood pressure Weight 62/minute 12/minute 116/62 91.2 kg Height 1.753 m Robson Beck MD 04/23/2024 11:07 AM Signed [facility] Cardiology [place] ([facility] Office Bldg POB) [address] [facility] [address] OUTPATIENT VISIT DATE 04/23/2024 PRIMARY CARE PHYSICIAN: Jordyn Beltran (Jossue) [address] [facility] [address] [place] [address] HISTORY OF PRESENT ILLNESS: Mr. Andrade is a 58 year old gentleman with a history of coronary artery disease, hypertension, and dyslipidemia. He had undergone coronary bypass grafting in August of 2021 when he presented with NSTEMI was found to have severe thrombotic disease in the proximal LAD. He is also treated for hypertension and dyslipidemia. He presents the office for routine follow-up. Patient continues to do well from a functional standpoint. He has not had chest pain, chest pressure, or shortness of breath. He has not had palpitations, lightheadedness, dizziness, or syncope. PAST MEDICAL HISTORY Diagnosis Date Alcohol abuse, episodic Anxiety Attention deficit disorder without mention of hyperactivity Class 2 severe obesity due to excess calories with serious comorbidity and body mass index (BMI) of 37.0 to 37.9 in adult ([facility]) Coronary artery disease Coronary atherosclerosis of unspecified type of vessel, [place] or graft Dr. Priest Fatty liver GERD (gastroesophageal reflux disease) Hard of hearing AL (myocardial infarction) ([facility]) 2005 Also 05/2021 and 08/2021 Pure hypercholesterolemia Status post left heart catheterization Tobacco use disorder PAST SURGICAL HISTORY Procedure Laterality Date CABG (1) VEIN GRAFT AND ARTERIAL GRAFT 09/01/2021 SENA to LAD CHOLECYSTECTOMY 08/2008 COLONOSCOPY GEN ANES 2016 reportedly normal PAST SURGICAL HISTORY OF 2004 cardiac stent placement SOCIAL HISTORY Social History Tobacco Use Smoking status: Former Current packs/day: 0.00 Average packs/day: 1 pack/day for 19.0 years (19.0 ttl pk-yrs) Types: Cigars, Cigarettes Start date: 2002 Quit date: 2021 Years since quittin.0 Smokeless tobacco: Never Tobacco comments: 1 cigar per week Vaping Use Vaping status: Never Used Substance Use Topics Alcohol use: Not Currently Alcohol/week: 14.0 - 21.0 standard drinks of alcohol Types: 14 - 21 Cans of Beer (12oz) per week Comment: Quit in August 2021 Drug use: Not Currently Types: Marijuana Comment: marijuana in high school FAMILY HISTORY Problem Relation Age of Onset Diabetes Father Hypertension Father Thyroid Mother Rheumatologic disease Mother RA Stroke Mother No Known Problems Sister Diabetes Brother Diabetes Paternal Grandmother Diabetes Paternal Aunt No Known Problems Sister No Known Problems Sister Asthma Son ALLERGIES: ALLERGIES No Known Allergies MEDICATIONS: ramipril (ALTACE) 5 mg capsule Take 1 capsule by mouth once daily. pantoprazole DR (PROTONIX) 40 mg tablet Take 1 tablet by mouth once daily. LORazepam (ATIVAN) 0.5 mg Take 0.5 mg by mouth once daily as needed (anxiety). Do not start before September 09, 2021. levothyroxine (SYNTHROID) 25 mcg tablet Take 25 mcg by mouth daily at bedtime. atorvastatin (LIPITOR) 40 mg tablet Take 1 tablet by mouth once daily. clopidogrel (PLAVIX) 75 mg tablet Take 1 tablet by mouth once daily. ezetimibe (ZETIA) 10 mg tablet Take 1 tablet by mouth once daily. metoprolol succinate ER (TOPROL XL) 25 mg 24 hr tablet Take 1 tablet by mouth once daily. aspirin, enteric coated (ECOTRIN LOW STRENGTH) 81 mg EC tablet Take 1 tablet by mouth once daily. magnesium oxide (MAG-OX) 400 mg (241.3 mg magnesium) tablet Take 1 tablet by mouth once daily. (Patient not taking: Reported on 09/14/2021) lidocaine (SALONPAS) 4 % patch Apply 1 Patch as directed once daily. Cut in half and apply to each side of midsternal incision - Remove patch after 12 hours. (Patient not taking: Reported on 09/14/2021 ) atomoxetine (STRATTERA) 10 mg capsule Take 30 mg by mouth once daily. REVIEW OF SYSTEMS: Review of Systems Constitutional: Negative for chills, fever, malaise/fatigue and weight loss. HENT: Negative for hearing loss and sore throat. Eyes: Negative for blurred vision and double vision. Respiratory: Negative. Cardiovascular: Negative for chest pain. Genitourinary: Negative for dysuria, frequency, hematuria and urgency. Musculoskeletal: Negative. Skin: Negative. Neurological: Negative for dizziness, seizures, loss of consciousness, weakness and headaches. Endo (more content not included)... Normal [facility] CBC W/Diff, Automatedon 11- Absolute Lymph 1.57 X10 3/uL Normal 0.83-4.51 [facility] Comment on above: Performed By: #### L 500.4100, L500.4050, L501.9910, L100.0100 #### [facility] [address] [place], [address] Absolute Neut 4.1 X10 3/uL Normal 2.0-7.7 [facility] Comment on above: Performed By: #### L 500.4100, L500.4050, L501.9910, L100.0100 #### [facility] [address] [place], [address] Basophils/100 WBC (Bld) 0.9 % Normal 0-1 [facility] Comment on above: Performed By: #### L 500.4100, L500.4050, L501.9910, L100.0100 #### [facility] [address] [place], [address] Eosinophils/100 WBC (Bld) 0.8 % Normal 0-5 [facility] Comment on above: Performed By: #### L 500.4100, L500.4050, L501.9910, L100.0100 #### [facility] [address] [place], [address] Erythrocyte distribution width (RBC) [Ratio] 13.0 % Normal 11.6-14.6 [facility] Comment on above: Performed By: #### L 500.4100, L500.4050, L501.9910, L100.0100 #### [facility] [address] [place], [address] Hematocrit (Bld) [Volume fraction] 44.5 % Normal 40-54 [facility] Comment on above: Performed By: #### L 500.4100, L500.4050, L501.9910, L100.0100 #### [facility] [address] [place], [address] Hemoglobin (Bld) [Mass/Vol] 15.2 g/dL Normal 13.0-16.5 [facility] Comment on above: Performed By: #### L 500.4100, L500.4050, L501.9910, L100.0100 #### [facility] [address] [place], [address] IG% 0.300 Normal 0.0-0.9 [facility] Comment on above: Result Comment: IG% - Immature Granulocytes (promyelocytes, myelocytes and metamyelocytes) > 1% indicates that a LEFT SHIFT is Present. Performed By: #### L 500.4100, L500.4050, L501.9910, L100.0100 #### [facility] [address] [place], [address] Lymphocytes/100 WBC (Bld) 24.6 % Normal 19-41 [facility] Comment on above: Performed By: #### L 500.4100, L500.4050, L501.9910, L100.0100 #### [facility] [address] [place], [address] MCH (RBC) [Entitic mass] 31.3 pg Normal 27.0-32.0 [facility] Comment on above: Performed By: #### L 500.4100, L500.4050, L501.9910, L100.0100 #### [facility] [address] [place], [address] MCHC (RBC) [Mass/Vol] 34.2 g/dL Normal 32-36 [facility] Comment on above: Performed By: #### L 500.4100, L500.4050, L501.9910, L100.0100 #### [facility] [address] [place], [address] MCV (RBC) [Entitic vol] 91.6 fL Normal 80-94 [facility] Comment on above: Performed By: #### L 500.4100, L500.4050, L501.9910, L100.0100 #### [facility] [address] [place], [address] Monocytes/100 WBC (Bld) 9.3 % Normal 0-10 [facility] Comment on above: Performed By: #### L 500.4100, L500.4050, L501.9910, L100.0100 #### [facility] [address] [place], [address] Neutrophils/100 WBC (Bld) 64.1 % Normal 47-70 [facility] Comment on above: Performed By: #### L 500.4100, L500.4050, L501.9910, L100.0100 #### [facility] [address] [place], [address] Nucleated RBC (Bld) [#/Vol] 0 10*3/uL Normal 0-5 [facility] Comment on above: Performed By: #### L 500.4100, L500.4050, L501.9910, L100.0100 #### [facility] [address] [place], [address] Platelet mean volume (Bld) [Entitic vol] 9.4 fL Normal 6.2-12.0 [facility] Comment on above: Performed By: #### L 500.4100, L500.4050, L501.9910, L100.0100 #### [facility] [address] [place], [address] Platelets (Bld) [#/Vol] 230 10*3/uL Normal 150-450 [facility] Comment on above: Performed By: #### L 500.4100, L500.4050, L501.9910, L100.0100 #### [facility] [address] [place], [address] RBC (Bld) [#/Vol] 4.86 10*6/uL Normal 4.6-6.2 [facility] Comment on above: Performed By: #### L 500.4100, L500.4050, L501.9910, L100.0100 #### [facility] [address] [place], [address] RDW SD 44.0 fl High 35.1-43.9 [facility] Comment on above: Performed By: #### L 500.4100, L500.4050, L501.9910, L100.0100 #### [facility] [address] [place], [address] WBC (Bld) [#/Vol] 6.4 10*3/uL Normal 4.4-11.0 [facility] Comment on above: Performed By: #### L 500.4100, L500.4050, L501.9910, L100.0100 #### [facility] [address] [place], [address] Comprehensive Metabolic [facility] 02-22-2024 Albumin [Mass/Vol] 4.0 g/dL Normal 3.2-5.0 [facility] Comment on above: Performed By: #### L 500.4100, L500.4050, L501.9910, L100.0100 #### [facility] [address] [place], [address] Albumin/Globulin [Mass ratio] 1.4 {ratio} Normal 0.9-2.4 [facility] Comment on above: Performed By: #### L 500.4100, L500.4050, L501.9910, L100.0100 #### [facility] [address] [place], [address] ALK P 42 U/L Low 45-117 [facility] Comment on above: Performed By: #### L 500.4100, L500.4050, L501.9910, L100.0100 #### [facility] [address] [place], [address] ALT [Catalytic activity/Vol] 50 U/L Normal 16-61 [facility] Comment on above: Performed By: #### L 500.4100, L500.4050, L501.9910, L100.0100 #### [facility] [address] [place], [address] AST [Catalytic activity/Vol] 25 U/L Normal 15-37 [facility] Comment on above: Performed By: #### L 500.4100, L500.4050, L501.9910, L100.0100 #### [facility] [address] [place], [address] Bilirubin [Mass/Vol] 0.50 mg/dL Normal 0.20-1.00 [facility] Comment on above: Result Comment: For patients on eltrombopag therapy, use of Dimension [place] TBIL is not recommended. Performed By: #### L 500.4100, L500.4050, L501.9910, L100.0100 #### [facility] [address] [place], [address] BUN/CRE 16.2 RATIO Normal 10-20 [facility] Comment on above: Performed By: #### L 500.4100, L500.4050, L501.9910, L100.0100 #### [facility] [address] [place], [address] CA,Total 8.8 mg/dL Normal 8.5-10.1 [facility] Comment on above: Performed By: #### L 500.4100, L500.4050, L501.9910, L100.0100 #### [facility] [address] [place], [address] Chloride [Moles/Vol] 108 mmol/L High 98-107 [facility] Comment on above: Performed By: #### L 500.4100, L500.4050, L501.9910, L100.0100 #### [facility] [address] [place], [address] CO2 [Moles/Vol] 28.0 mmol/L Normal 21.0-32.0 [facility] Comment on above: Performed By: #### L 500.4100, L500.4050, L501.9910, L100.0100 #### [facility] [address] [place], [address] Creatinine [Mass/Vol] 0.93 mg/dL Normal 0.70-1.30 [facility] Comment on above: Result Comment: The validity of the calculated GFR GFRAA in patients over 70 years has not been determined. Clinical correlation is essential. Performed By: #### L 500.4100, L500.4050, L501.9910, L100.0100 #### [facility] [address] [place], [address] EST GFR - AA 108 mL/min Normal >60 [facility] Comment on above: Result Comment: Afri can Georgian GFR Calc Performed By: #### L 500.4100, L500.4050, L501.9910, L100.0100 #### [facility] [address] [place], [address] GAP 3 Low 5-15 [facility] Comment on above: Performed By: #### L 500.4100, L500.4050, L501.9910, L100.0100 #### [facility] [address] [place], [address] GFR/1.73 sq M.predicted among non-blacks MDRD (S/P/Bld) [Vol rate/Area] 89 mL/min/{1.73_m2} Normal >60 [facility] Comment on above: Result Comment: Non- GFR Calc Performed By: #### L 500.4100, L500.4050, L501.9910, L100.0100 #### [facility] [address] [place], [address] Globulin (S) [Mass/Vol] 2.8 g/dL Normal 2.2-4.2 [facility] Comment on above: Performed By: #### L 500.4100, L500.4050, L501.9910, L100.0100 #### [facility] [address] [place], [address] Glucose [Mass/Vol] 106 mg/dL Normal 74-106 [facility] Comment on above: Result Comment: Fast ing Glucose result from 100 to 125 mg/dL suggests IMPAIRED HOMEOSTASIS per A.D.A. criteria. Performed By: #### L 500.4100, L500.4050, L501.9910, L100.0100 #### [facility] [address] [place], [address] Potassium [Moles/Vol] 4.8 mmol/L Normal 3.5-5.1 [facility] Comment on above: Performed By: #### L 500.4100, L500.4050, L501.9910, L100.0100 #### [facility] [address] [place], [address] Sodium [Moles/Vol] 140 mmol/L Normal 136-145 [facility] Comment on above: Performed By: #### L 500.4100, L500.4050, L501.9910, L100.0100 #### [facility] [address] [place], [address] T PROT 6.8 g/dL Normal 6.4-8.2 [facility] Comment on above: Performed By: #### L 500.4100, L500.4050, L501.9910, L100.0100 #### [facility] [address] [place], [address] Urea nitrogen [Mass/Vol] 15 mg/dL Normal 7-18 [facility] Comment on above: Performed By: #### L 500.4100, L500.4050, L501.9910, L100.0100 #### [facility] [address] [place], [address] Lipid Profileon 02-22-2024 Cholesterol [Mass/Vol] 143 mg/dL Normal 200 [facility] Comment on above: Result Comment: <200 mg/dL Desirable 200-240 mg/dL Borderline >240 mg/dL High Risk Performed By: #### L 500.4100, L500.4050, L501.9910, L100.0100 #### [facility] [address] [place], [address] Cholesterol in HDL [Mass/Vol] 68 mg/dL Normal [facility] Comment on above: Result Comment: The drugs N-Acetylcysteine and Metamizole may falsely depress this assay. Reference Range HDL <40 mg/dL Low HDL Cholesterol HDL >or= 60 mg/dL High HDL Cholesterol Performed By: #### L 500.4100, L500.4050, L501.9910, L100.0100 #### [facility] [address] [place], [address] Cholesterol in LDL [Mass/Vol] 65 mg/dL Normal 0-130 [facility] Comment on above: Performed By: #### L 500.4100, L500.4050, L501.9910, L100.0100 #### [facility] [address] [place], [address] Cholesterol in VLDL [Mass/Vol] 10 mg/dL Normal 5-40 [facility] Comment on above: Performed By: #### L 500.4100, L500.4050, L501.9910, L100.0100 #### [facility] [address] [place], [address] Triglyceride [Mass/Vol] 51 mg/dL Normal [facility] Comment on above: Result Comment: The drugs N-Acetylcysteine and Metamizole may falsely depress this assay. Serum Triglycerides Reference Interval Normal <150 mg/dL Borderline high 150 - 199 mg/dL High 200 - 499 mg/dL Very High > or = 500 mg/dL Performed By: #### L 500.4100, L500.4050, L501.9910, L100.0100 #### [facility] [address] [place], [place], [address] PSA,Total - Annual Screenon 02-22-2024 PSA,TOT SCREEN 0.37 ng/mL Normal 0.00-4.00 [facility] Comment on above: Result Comment: This test was performed using the TPSA assay method for the [employer] chemistry system. Values obtained with different assay methods cannot be used interchangably. When changing PSA assays in the course of monitoring a patient, additional sequential testing should be carried out to confirm baseline values. Performed By: #### L 500.4100, L500.4050, L501.9910, L100.0100 #### [facility] [address] [place], [place], [address] [facility] ([employer]) -------- DORIS ANDRADE ([id number]) 1965 M Date Time Provider Department 12/14/23 [facility] During your visit today, we recorded the following information about you: Bacilio Singh MA 12/14/2023 1:28 PM Signed Pt stopped by office to request that the op note and info from last visit be printed in addition to his return to work date. Printed and given to patient as requested. Bacilio Singh MA Allergies As of Date: 12/14/2023 (No Known Allergies) Date Reviewed: 03/14/2023 Reviewed by: Robson Beck MD - Fully Assessed Reason for Visit: Record request for taxes [Other] Prescriptions as of 12/14/2023 - clopidogrel (PLAVIX) 75 mg tablet Take 1 tablet by mouth once daily. - metoprolol tartrate, short acting, (LOPRESSOR) 25 mg tablet Take 0.5 tablets by mouth twice daily. - ezetimibe (ZETIA) 10 mg tablet Take 1 tablet by mouth once daily. - ramipril (ALTACE) 5 mg capsule Take 1 capsule by mouth once daily. - atorvastatin (LIPITOR) 40 mg tablet Take 1 tablet by mouth once daily. - aspirin, enteric coated (ECOTRIN LOW STRENGTH) 81 mg EC tablet Take 1 tablet by mouth once daily. - magnesium oxide (MAG-OX) 400 mg (241.3 mg magnesium) tablet Take 1 tablet by mouth once daily. - pantoprazole DR (PROTONIX) 40 mg tablet Take 1 tablet by mouth once daily. - lidocaine (SALONPAS) 4 % patch Apply 1 Patch as directed once daily. Cut in half and apply to each side of midsternal incision - Remove patch after 12 hours. - atomoxetine (STRATTERA) 10 mg capsule Take 30 mg by mouth once daily. - LORazepam (ATIVAN) 0.5 mg Take 0.5 mg by mouth once daily as needed (anxiety). Do not start before September 09, 2021. - levothyroxine (SYNTHROID) 25 mcg tablet Take 25 mcg by mouth daily at bedtime. Problem List As Of Date 12/14/2023 Noted Resolved PROSTATOCYSTITIS [N41.3] 06/29/2007 HYDROCELE NOS [N43.3] 06/29/2007 Coronary artery disease involving [place] roberts*04/22/2020 Pure hypercholesterolemia [E78.00] 04/22/2020 Essential hypertension [I10] 04/22/2020 Class 2 severe obesity due to excess calories w* Tobacco use disorder [F17.200] NSTEMI (non-ST elevated myocardial infarction) *06/08/2021 06/09/2021 Hypertriglyceridemia [E78.1] 06/09/2021 Grade I diastolic dysfunction [I51.89] 06/09/2021 Obesity, Class I, BMI 30-34.9 [E66.9] 08/27/2021 Atypical chest pain [R07.89] 08/27/2021 11/13/2021 Elevated troponin [R79.89] 08/27/2021 03/13/2023 NSTEMI (non-ST elevated myocardial infarction) *08/27/2021 S/P CABG x 1 [Z95.1] 09/05/2021 Chest pain [R07.9] 11/12/2021 03/13/2023 Anxiety [F41.9] 11/12/2021 11/13/2021 Encounter Status:Closed by BACILIO SIGNH on 12/14/23 Normal [facility] 36on 02-08-2023 36 Noted thank you! Normal [facility] 36on 02-07-2023 36 Pt returned call to schedule. Pt is still currently waiting for C9 to be approved. Pt will call back to schedule once completed. FYI. Normal [facility] ED Nursing Noteon 02-01-2023 ED Nursing Note Reviewed discharge instructions and patient verbalized understanding. No further questions. Patient ambulated out of ED with strong steady gait. Respirations even and non labored. No acute distress. A&O x4. Cara Rodriguez RN 02/01/232126 Normal [facility] ED Nursing Note Patient ambulated to ED4 without difficulty, visitor at bedside. He reports that he Fell on his Left shoulder. He stepped in the space between a trailer and dock. Injury happened on the at 1230AM. He took IBU this morning. He states that it hurts to raise his arms more than above the level of the shoulder. He had cramping in the finger all the way up the arm. He no longer has numbness or tingling in the arm, like he did this morning. No neck or back pain. Patient appears to be in no acute distress. Skin is warm, dry, and pink. A&O x3. Respirations even and non labored. Bed in locked and low position. Call light within reach. Patient has no further needs. Normal [facility] ED Provider Noteon ED Provider Note EMERGENCY DEPARTMENT ENCOUNTER Pt Name: Doris Andrade Birthdate 1965 Date of evaluation: 02/01/2023 ED Provider: Ania Motta DO CHIEF COMPLAINT Chief Complaint Patient presents with Shoulder Injury HISTORY OF PRESENT ILLNESS (Location/Symptom, Timing/Onset, Context/Setting, Quality, Duration, Modifying Factors, Severity) Note limiting factors. I wore appropriate PPE for the entirety of this encounter. HPI 57 y/o male presents emergency department a with left shoulder and arm pain after a fall on outstretched hand yesterday. He denies any previous shoulder surgeries. Denies any current numbness or tingling. States it is worse with inversion of the shoulder as well as forward flexion. Nursing Notes were reviewed. Limitations to history: None Outside historians: None REVIEW OF SYSTEMS Review of Systems Musculoskeletal: Positive for arthralgias. Pertinent positives and negatives as per HPI. PAST MEDICAL HISTORY Past Medical History: Diagnosis Date Heart attack (HCC) High cholesterol Hypertension SURGICAL HISTORY Past Surgical History: Procedure Laterality Date CORONARY ARTERY BYPASS GRAFT CURRENT MEDICATIONS Discharge Medication List as of 02/01/2023 9:12 PM CONTINUE these medications which have NOT CHANGED Details aspirin 81 MG EC tablet Take 81 mg by mouth in the morning., Starting Tue10/21/2021, Historical Med ramipril (Altace) 5 MG capsule Take 5 mg by mouth in the morning., Starting Tue07/19/2022, Historical Med atorvastatin (Lipitor) 40 MG tablet Take 40 mg by mouth daily., Starting Tue01/20/2023, Historical Med clopidogrel (Plavix) 75 MG tablet Take 75 mg by mouth daily., Starting Tue01/20/2023, Historical Med DULoxetine (Cymbalta) [address] capsule Take 60 mg by mouth daily., Starting Tue01/24/2023, Historical Med ezetimibe (Zetia) 10 MG tablet Take 10 mg by mouth daily., Starting Tue01/20/2023, Historical Med levothyroxine (Synthroid, Levoxyl) 25 MCG tablet Take 25 mcg by mouth daily., Starting Tue01/20/2023, Historical Med LORazepam (Ativan) 0.5 MG tablet TAKE 2 TABLETS BY MOUTH DAILY NEEDED FOR ANXIETY, Historical Med metoprolol tartrate (Lopressor) 25 MG tablet TAKE 1/2 (ONE-HALF) OF A TABLET BY MOUTH TWICE DAILY, Historical Med Multiple Vitamin (multivitamin) capsule daily., Historical Med pantoprazole (ProtoNix) 40 MG EC tablet Take 40 mg by mouth daily., Starting Darcie 01/20/2023, Historical Med ALLERGIES Patient has no known allergies. FAMILY HISTORY No family history on file. SOCIAL HISTORY Social History Socioeconomic History Marital status: Tobacco Use Smoking status: Never Smokeless tobacco: Never Vaping Use Vaping Use: Never used Substance and Sexual Activity Alcohol use: Not Currently Drug use: Never SCREENINGS PHYSICAL EXAM ED Triage Vitals Temp Pulse Resp BP -- -- -- -- SpO2 Temp src Heart Rate Source Patient Position -- -- -- -- BP Location FiO2 (%) -- -- Physical Exam Vitals and nursing note reviewed. Constitutional: General: He is not in acute distress. Appearance: He is well-developed. HENT: Head: Normocephalic and atraumatic. Eyes: Conjunctiva/sclera: Conjunctivae normal. Cardiovascular: Rate and Rhythm: Normal rate. Pulses: Normal pulses. Pulmonary: Effort: Pulmonary effort is normal. Abdominal: Palpations: Abdomen is soft. Tenderness: There is no abdominal tenderness. Musculoskeletal: General: Tenderness present. No swelling or deformity. Cervical back: Neck supple. Comments: left anterior shoulder tenderness pain with flexion past 90 degrees as well as internal rotation. Mild tenderness over the left forearm as well. 2+ radial pulses and sensation intact to the left hand. No bony tenderness over the wrist or elbow. Skin: General: Skin is warm and dry. Neurological: Mental Status: He is alert. Sensory: No sensory deficit. Psychiatric: Mood and Affect: Mood normal. DIAGNOSTIC RESULTS Procedures/EKG: RADIOLOGY (Per Emergency Physician): Interpretation per the Radiologist below, if available at the time of this note: XR shoulder 2+ views left Final Result 1. No acute osseous abnormality. LEFT FOREARM 2 VIEWS CLINICAL INDICATION: pain/injury TECHNIQUE: 2 views of the left forearm. COMPARISON: None. FINDINGS: No acute fracture or dislocation. Marginal spurring in the ulnotrochlear articulation. Degenerative change in the thumb CMC joint. Soft tissues grossly unremarkable. IMPRESSION: 1. No acute osseous abnormality. 2. Degenerative change. Report Dictated on Electronically Signed By: Lex Cifuentes MD Electronically Signed Date/Time: 02/01/2023 8:57 PM EDT XR forearm 2 views left Final Result 1. No acute osseous abnormality. LEFT FOREARM 2 VIEWS CLINICAL INDICATION: pain/injury TECHNIQUE: 2 views of the left forearm. COMPARISON: None. (more content not included)... Normal [facility] No Panel Informationon 02-01 1. No acute osseous abnormality. LEFT FOREARM 2 VIEWS CLINICAL INDICATION: pain/injury TECHNIQUE: 2 views of the left forearm. COMPARISON: None. FINDINGS: No acute fracture or dislocation. Marginal spurring in the ulnotrochlear articulation. Degenerative change in the thumb CMC joint. Soft tissues grossly unremarkable. IMPRESSION: 1. No acute osseous abnormality. 2. Degenerative change. Report Dictated on Electronically Signed By: Lex Cifuentes MD Electronically Signed Date/Time: 02/01/2023 8:57 PM EDT [facility] Patient Name: DORIS ZAFAR : 1965 Exam Date/Time: 02/01/2023 20:52 Procedure: XR FOREARM 2 VIEWS LEFT Ordering Provider: MOTTA BRIGID Reason For Exam: pain LEFT SHOULDER 3 VIEWS CLINICAL INDICATION: pain/injury TECHNIQUE: 3 views of the left shoulder. COMPARISON: None. FINDINGS: No acute fracture or dislocation. Joint spaces maintained. Soft tissues grossly unremarkable. [facility] Lex Cifuentes MD - 02/01/2023 Patient Name: DORIS ANDRADE : 1965 Exam Date/Time: 02/01/2023 20:52 Procedure: XR FOREARM 2 VIEWS LEFT Ordering Provider: MOTTA BRIGID Reason For Exam: pain LEFT SHOULDER 3 VIEWS CLINICAL INDICATION: pain/injury TECHNIQUE: 3 views of the left shoulder. COMPARISON: None. FINDINGS: No acute fracture or dislocation. Joint spaces maintained. Soft tissues grossly unremarkable. IMPRESSION: 1. No acute osseous abnormality. LEFT FOREARM 2 VIEWS CLINICAL INDICATION: pain/injury TECHNIQUE: 2 views of the left forearm. COMPARISON: None. FINDINGS: No acute fracture or dislocation. Marginal spurring in the ulnotrochlear articulation. Degenerative change in the thumb CMC joint. Soft tissues grossly unremarkable. IMPRESSION: 1. No acute osseous abnormality. 2. Degenerative change. Report Dictated on Electronically Signed By: Lex Cifuentes MD Electronically Signed Date/Time: 02/01/2023 8:57 PM EDT [facility] Radiology Study observation (narrative) [facility] No Panel InformationOrdered By: Lex Cifuentes on 02-01-2023 [facility] [employer] Work Phone: XR Shoulder - left 2 Viewson 02-01-2023 Patient Name: DORIS ZAFAR : 1965 Exam Date/Time: 02/01/2023 20:53 Procedure: XR SHOULDER 2+ VIEWS LEFT Ordering Provider: MOTTA BRIGID Reason For Exam: pain/injury LEFT SHOULDER 3 VIEWS CLINICAL INDICATION: pain/injury TECHNIQUE: 3 views of the left shoulder. COMPARISON: None. FINDINGS: No acute fracture or dislocation. Joint spaces maintained. Soft tissues grossly unremarkable. [facility] Lex Cifuentes MD - 02/01/2023 Patient Name: DORIS ANDRADE : 1965 Exam Date/Time: 02/01/2023 20:53 Procedure: XR SHOULDER 2+ VIEWS LEFT Ordering Provider: MOTTA BRIGID Reason For Exam: pain/injury LEFT SHOULDER 3 VIEWS CLINICAL INDICATION: pain/injury TECHNIQUE: 3 views of the left shoulder. COMPARISON: None. FINDINGS: No acute fracture or dislocation. Joint spaces maintained. Soft tissues grossly unremarkable. IMPRESSION: 1. No acute osseous abnormality. LEFT FOREARM 2 VIEWS CLINICAL INDICATION: pain/injury TECHNIQUE: 2 views of the left forearm. COMPARISON: None. FINDINGS: No acute fracture or dislocation. Marginal spurring in the ulnotrochlear articulation. Degenerative change in the thumb CMC joint. Soft tissues grossly unremarkable. IMPRESSION: 1. No acute osseous abnormality. 2. Degenerative change. Report Dictated on Electronically Signed By: Lex Cifuentes MD Electronically Signed Date/Time: 02/01/2023 8:57 PM EDT Simphatic Absolute lymphocyte countOrd ered By: Jordyn Beltarn on 12-22-2022 Lymphocytes Auto (Unsp spec) [#/Vol] 1.80 10*3/uL 0.83-4.51 [facility] Basophil percentageOrdered B y: Jordyn Beltran on 12-22-2022 Basophils/100 WBC (Bld) 0.7 % 0-1 [facility] Bilirubin [Mass/Vol] 0.50 mg/dL 0.20-1.00 [facility] Comment on above: For patients on eltr ombopag therapy, use of Dimension [place] TBIL is not recommended. Chloride [Moles/Vol] 106 mmol/L 98-107 [facility] Cholesterol [Mass/Vol] 161 mg/dL <200 [facility] Comment on above: <200 mg/dL Desirable 200-240 mg/dL Borderline >240 mg/dL High Risk Eosinophils/100 WBC (Bld) 1.4 % 0-5 [facility] Glucose [Mass/Vol] 114 mg/dL 74-106 [facility] Comment on above: Fasting Glucose resu lt from 100 to 125 mg/dL suggests IMPAIRED HOMEOSTASIS per A.D.A. criteria. Neutrophils (Bld) [#/Vol] 5.0 10*3/uL 2.0-7.7 [facility] Neutrophils/100 WBC (Bld) 65.1 % 47-70 [facility] Potassium [Moles/Vol] 5.1 mmol/L 3.5-5.1 [facility] Protein [Mass/Vol] 7.3 g/dL 6.4-8.2 [facility] Sodium [Moles/Vol] 139 mmol/L 136-145 [facility] Triglyceride [Mass/Vol] 72 mg/dL <199 [facility] Comment on above: The drugs N-Acetylcy steine and Metamizole may falsely depress this assay.Serum Triglycerides Reference Interval Normal <150 mg/dL Borderline high 150 - 199 mg/dL High 200 - 499 mg/dL Very High > or = 500 mg/dL WBC (Bld) [#/Vol] 7.6 10*3/uL 4.4-11.0 [facility] Blood erythrocytes count (nu mber/volume)Ordered By: Jordyn Beltran on 12-22-2022 RBC (Bld) [#/Vol] 5.20 10*6/uL 4.6-6.2 [facility] Blood hemoglobin measurement (mass/volume)Ordered By: Jordyn Beltran on 12-22-2022 Hemoglobin (Bld) [Mass/Vol] 15.9 g/dL 13.0-16.5 [facility] Blood lymphocytes/100 leukoc ytesOrdered By: Jordyn Beltran on 12-22-2022 Lymphocytes/100 WBC (Bld) 23.7 % 19-41 [facility] Blood monocytes/100 leukocyt esOrdered By: Jordyn Beltran on 12-22-2022 Monocytes/100 WBC (Bld) 8.7 % 0-10 [facility] Blood platelet mean volumeOr dered By: Jordyn Beltran on 12-22-2022 Platelet mean volume (Bld) [Entitic vol] 9.5 fL 6.2-12.0 [facility] Determination of erythrocyte mean corpuscular volume (MCV)Ordered By: Jordyn Beltran on 12-22-2022 MCV (RBC) [Entitic vol] 93.7 fL 80-94 [facility] Hematocrit Auto (Bld) [Volum e fraction]Ordered By: Jordyn Beltran on 12-22-2022 Hematocrit (Bld) [Volume fraction] 48.7 % 40-54 [facility] Laboratory - Chemistry and C hemistry - challengeOrdered By: Jordyn Beltran on 12-22-2022 ALP [Catalytic activity/Vol] 42 U/L 45-117 [facility] ALT [Catalytic activity/Vol] 70 U/L 16-61 [facility] CO2 [Moles/Vol] 31.0 mmol/L 21.0-32.0 [facility] Globulin (S) [Mass/Vol] 3.0 g/dL 2.2-4.2 [facility] Urea nitrogen/Creatinine [Mass ratio] 14.6 mg/mg 10-20 [facility] Laboratory - Hematology and Cell countsOrdered By: Jordyn Beltran on 12-22-2022 Erythrocyte distribution width (RBC) [Entitic vol] 45.1 fL 35.1-43.9 [facility] Erythrocyte distribution width (RBC) [Ratio] 13.2 % 11.6-14.6 [facility] Immature granulocytes/100 WBC (Bld) 0.400 % 0.0-0.9 [facility] Comment on above: IG% - Immature Granu locytes (promyelocytes, myelocytes and metamyelocytes) > 1% indicates that a LEFT SHIFT is Present. MCH (RBC) [Entitic mass] 30.6 pg 27.0-32.0 [facility] Nucleated RBC/100 WBC (Bld) [Ratio] 0 % 0-5 [facility] MCHC Auto (RBC) [Mass/Vol]Or dered By: Jordyn Beltran on 12-22-2022 MCHC (RBC) [Mass/Vol] 32.6 g/dL 32-36 [facility] No Panel InformationOrdered By: Jordyn Beltran on 12-22-2022 Estimated GFR (MDRD) Amer 105 mL/min >60 [facility] Comment on above: GFR Calc Estimated GFR (MDRD) Non-Af Amer 86 mL/min >60 [facility] Comment on above: Non- GFR Calc Prostate Specific Antigen Screen 0.34 ng/mL 0.00-4.00 [facility] Comment on above: This test was perfor med using the TPSA assay method for thePombai chemistry system. Values obtained with differentassay methods cannot be used interchangably.When changing PSA assays in the course of monitoring apatient, additional sequential testing should be carriedout to confirm baseline values. Thyroid Stimulating Hormone (TSH) 2.92 uIU/mL 0.358-3.74 [facility] Platelets bldOrdered By: Rene Beltran on 12-22-2022 Platelets (Bld) [#/Vol] 251 10*3/uL 150-450 [facility] Serum or plasma albumin ashleigh urement (mass/volume)Ordered By: Jordyn Beltran on 12-22-2022 Albumin [Mass/Vol] 4.3 g/dL 3.2-5.0 [facility] Serum or plasma albumin/glob ulin mass ratioOrdered By: Jordyn Beltran on 12-22-2022 Albumin/Globulin [Mass ratio] 1.4 {ratio} 0.9-2.4 [facility] Serum or plasma calcium ashleigh urement (mass/volume)Ordered By: Jordyn Beltran on 12-22-2022 Calcium [Mass/Vol] 9.0 mg/dL 8.5-10.1 [facility] Serum or plasma cholesterol in HDL measurement (mass/volume)Ordered By: Jordyn Beltran on 12-22-2022 Cholesterol in HDL [Mass/Vol] 77 mg/dL >40 [facility] Comment on above: The drugs N-Acetylcy steine and Metamizole may falsely depress this assay. Reference Range HDL <40 mg/dL Low HDL Cholesterol HDL >or= 60 mg/dL High HDL Cholesterol Serum or plasma cholesterol in VLDL measurement (mass/volume)Ordered By: Jordyn Beltran on 12-22-2022 Cholesterol in VLDL [Mass/Vol] 14 mg/dL 5-40 [facility] Serum or plasma creatinine m easurement (mass/volume)Ordered By: Jordyn Beltran on 12-22-2022 Creatinine [Mass/Vol] 0.96 mg/dL 0.70-1.30 [facility] Comment on above: The validity of the calculated GFR & GFRAA in patients over 70 years has not been determined. Clinical correlation is essential. Serum or plasma low density lipoprotein (LDL) cholesterol measurement (mass/volume)Ordered By: Jordyn Beltran on 12-22-2022 Cholesterol in LDL [Mass/Vol] 70 mg/dL 0-130 [facility] Serum or plasma urea nitroge n measurement (mass/volume)Ordered By: Jordyn Beltran on 12-22-2022 Urea nitrogen [Mass/Vol] 14 mg/dL 7-18 [facility] Thin prep Papanicolaou smear with manual screeningOrdered By: Jordyn Beltran on 12-22-2022 Thin prep Papanicolaou smear with manual screening 28 U/L 15-37 [facility] Thin prep Papanicolaou smear with manual screening 2 5-15 [facility] GLUCOSE, BLOOD (POC)on 11-18 Glucose [Mass/Vol] 130 mg/dL Abnormal 74 - 99 mg/dL [facility] GLUCOSE, BLOOD (POC)on 10-28 Glucose [Mass/Vol] 96 mg/dL 74 - 99 mg/dL [facility] Blood Glucose , Office [phone])Ordered By: Freddy Smith on 05-18-2019 Glucose Glucometer (BldC) [Moles/Vol] 161 1 Normal [facility] Work Phone: HgA1C , Office ([phone])Keely hirsch By: Freddy Smith on 05-18-2019 HbA1c (Bld) [Mass fraction] 5.6 % Normal 4.6 - 7.1 [facility] Work Phone: CBC with auto diff ([phone])Or dered By: Activity Specialist on 05-16-2019 Basophils (Bld) [#/Vol] 0.1 {x10E3/uL} Normal 0.0-0.2 [facility] Work Phone: Comment on above: PATIENT WAS FASTINGP ERFORMED BY: Dana Translation [facility] Mapooh[address] RoadDublin [place] [id number] Basophils (Bld) [#/Vol] 0.1 10*3/uL Normal 0.0-0.2 [facility]; [facility] Work Phone: Basophils/100 WBC (Bld) 0 % Normal [facility] Work Phone: Comment on above: PATIENT WAS FASTINGP ERFORMED BY: Dana Translation [facility] Jamzim1797 [address] RoadDublin [place] [id number] Eosinophils (Bld) [#/Vol] 0.0 {x10E3/uL} Normal 0.0-0.4 [facility] Work Phone: Comment on above: PATIENT WAS FASTINGP ERFORMED BY: Dana Translation LabMoleculinrp Pltdyo[address] [employer] Cloud ServicesDublin [place] [id number] Eosinophils (Bld) [#/Vol] 0.0 10*3/uL Normal 0.0-0.4 [facility]; [facility] Work Phone: Eosinophils/100 WBC (Bld) 0 % Normal [facility] Work Phone: Comment on above: PATIENT WAS FASTINGP ERFORMED BY: Dana Translation LabMoleculinrp Sckrkn[address] [employer] & Cloud ServicesDublin [place] [id number] Erythrocyte distribution width (RBC) [Ratio] 13.6 % Normal 11.6-15.4 [facility] Work Phone: Comment on above: PATIENT WAS FASTINGP ERFORMED BY: AFRICA WhartonSaint [facility] Tiizhg9577 [facility] [id number] Hematocrit (Bld) [Volume fraction] 49.6 % Normal 37.5-51.0 [facility] Work Phone: Comment on above: PATIENT WAS FASTINGP ERFORMED BY: [facility] Sldozi9290 [facility] [id number] Hemoglobin (Bld) [Mass/Vol] 16.4 g/dL Normal 13.0-17.7 [facility] Work Phone: Comment on above: PATIENT WAS FASTINGP ERFORMED BY: AkikoSaint [facility] Qwqisa2359 [facility] [id number] Immature granulocytes (Bld) [#/Vol] 0.1 {x10E3/uL} Normal 0.0-0.1 [facility] Work Phone: Comment on above: PATIENT WAS FASTINGP ERFORMED BY: AkikoSaint [facility] Uppmgo9137 [facility] [id number] Immature granulocytes (Bld) [#/Vol] 0.1 10*3/uL Normal 0.0-0.1 [facility]; [facility] Work Phone: Immature granulocytes/100 WBC (Bld) 1 % Normal [facility] Work Phone: Comment on above: PATIENT WAS FASTINGP ERFORMED BY: [facility]6370 [facility] [id number] Lymphocytes (Bld) [#/Vol] 2.7 {x10E3/uL} Normal 0.7-3.1 [facility] Work Phone: Comment on above: PATIENT WAS FASTINGP ERFORMED BY: LabMary [facility]6370 [facility] [id number] Lymphocytes (Bld) [#/Vol] 2.7 10*3/uL Normal 0.7-3.1 [facility]; [facility] Work Phone: Lymphocytes/100 WBC (Bld) 22 % Normal [facility] Work Phone: Comment on above: PATIENT WAS FASTINGP ERFORMED BY: AFRICA LabSaint [facility] Nskawi5268 [facility] Hospitalin [place] [id number] MCH (RBC) [Entitic mass] 31.4 pg Normal 26.6-33.0 [facility] Work Phone: Comment on above: PATIENT WAS FASTINGP ERFORMED BY: LabMary [facility]6370 [facility] [id number] MCHC (RBC) [Mass/Vol] 33.1 g/dL Normal 31.5-35.7 [facility] prehensive Internal Medicine Work Phone: Comment on above: PATIENT WAS FASTINGP ERFORMED BY: AFRICA Tobarlin6370 [facility] [id number] MCV (RBC) [Entitic vol] 95 fL Normal 79-97 [facility] Work Phone: Comment on above: PATIENT WAS FASTINGP ERFORMED BY: AFRICA LabSaint [facility] Zlugwf8867 [facility] [id number] Monocytes (Bld) [#/Vol] 1.2 {x10E3/uL} Abnormal 0.1-0.9 [facility] Work Phone: Comment on above: PATIENT WAS FASTINGP ERFORMED BY: AFRICA LabSaint [facility] Txhbzs8941 [facility] [id number] Monocytes (Bld) [#/Vol] 1.2 10*3/uL Abnormal 0.1-0.9 [facility]; [facility] Work Phone: Monocytes/100 WBC (Bld) 10 % Normal [facility] Work Phone: Comment on above: PATIENT WAS FASTINGP ERFORMED BY: LabSaint [facility] Pdrenj[address] [facility] Centerin [place] [id number] Neutrophils (Bld) [#/Vol] 8.4 {x10E3/uL} Abnormal 1.4-7.0 [facility] Work Phone: Comment on above: PATIENT WAS FASTINGP ERFORMED BY: AFRICA Tello6370 [facility] [id number] Neutrophils (Bld) [#/Vol] 8.4 10*3/uL Abnormal 1.4-7.0 [facility]; [facility] Work Phone: Neutrophils/100 WBC (Bld) 67 % Normal [facility] Work Phone: Comment on above: PATIENT WAS FASTINGP ERFORMED BY: AFRICA Cam70 [facility] [id number] Platelets (Bld) [#/Vol] 231 {x10E3/uL} Normal 150-450 [facility] Work Phone: Comment on above: PATIENT WAS FASTINGP ERFORMED BY: AFRICA Ollie Cam70 [facility] [id number] Platelets (Bld) [#/Vol] 231 10*3/uL Normal 150-450 [facility]; [facility] Work Phone: RBC (Bld) [#/Vol] 5.23 {x10E6/uL} Normal 4.14-5.80 [facility] servicesehensive [facility] Work Phone: Comment on above: PATIENT WAS FASTINGP ERFORMED BY: AFRICA Ollie Tello6370 [facility] [id number] RBC (Bld) [#/Vol] 5.23 10*6/uL Normal 4.14-5.80 Compr ens[facility]; [facility] Work Phone: WBC (Bld) [#/Vol] 12.5 {x10E3/uL} Abnormal 3.4-10.8 [facility] servicesehensive [facility] Work Phone: Comment on above: PATIENT WAS FASTINGP ERFORMED BY: AFRICA Rich Xnamxb6228 [facility] [id number] WBC (Bld) [#/Vol] 12.5 10*3/uL Abnormal 3.4-10.8 Compr ehens[facility]; [facility] Work Phone: LIPID PANEL ([phone])Ordered B y: Activity Specialist on 05-16-2019 Cholesterol [Mass/Vol] 246 mg/dL Abnormal 100-199 [facility]hoh[facility] Work Phone: Comment on above: PATIENT WAS FASTINGP ERFORMED BY: AFRICA Tello6370 [facility] [id number] Cholesterol in HDL [Mass/Vol] 69 mg/dL Normal [facility] Work Phone: Comment on above: PATIENT WAS FASTINGP ERFORMED BY: AFRICA Tello6370 [facility] [id number] Cholesterol in LDL [Mass/Vol] 143 mg/dL Abnormal 0-99 [facility] Work Phone: Comment on above: PATIENT WAS FASTINGP ERFORMED BY: AFRICA Tello6370 [facility] [id number] Cholesterol in LDL/Cholesterol in HDL [Mass ratio] 2.1 {ratio} Normal 0.0-3.6 [facility] Work Phone: Comment on above: LDL/HDL Ratio Men Wo men 1/2 Avg.Risk 1.0 1.5 Avg.Risk 3.6 3.2 2X Avg.Risk 6.2 5.0 3X Avg.Risk 8.0 6.1 PATIENT WAS FASTINGP ERFORMED BY: AFRICA Tobarlin6370 [facility] [id number] Cholesterol in VLDL [Mass/Vol] 34 mg/dL Normal 5-40 [facility] Work Phone: Comment on above: PATIENT WAS FASTINGP ERFORMED BY: AFRICA Tobarlin6370 [facility] [id number] Triglyceride [Mass/Vol] 170 mg/dL Abnormal 0-149 [facility] Work Phone: Comment on above: PATIENT WAS FASTINGP ERFORMED BY: AFRICA Tobarlin6370 [facility] [id number] METABOLIC PANEL, COMPREHENSI VE ([id number])Ordered By: Activity Specialist on 05-16-2019 Albumin [Mass/Vol] 5.0 g/dL Abnormal 3.8-4.9 [facility] Work Phone: Comment on above: Please note refere nce interval change PATIENT WAS FASTINGP ERFORMED BY: AFRICA LabCorosa Ajdrxs4519 [address]rios RoadDublin [place] [id number] Albumin/Globulin [Mass ratio] 2.4 {ratio} Abnormal 1.2-2.2 [facility] Work Phone: Comment on above: PATIENT WAS FASTINGP ERFORMED BY: CB [facility] Mmbzis4923 [address] RoadDublin [place] [id number] ALP [Catalytic activity/Vol] 47 [iU]/L Normal 39-117 [facility] Work Phone: Comment on above: PATIENT WAS FASTINGP ERFORMED BY: AFRICA LabCo Ujvcwd4168 [address] RoadDublin [place] [id number] ALP [Catalytic activity/Vol] 47 U/L Normal 39-117 [facility]; [facility] Work Phone: ALT [Catalytic activity/Vol] 99 [iU]/L Abnormal 0-44 [facility] Work Phone: Comment on above: PATIENT WAS FASTINGP ERFORMED BY: [facility] Gyyuil2556 [address] RoadDublin [place] [id number] ALT [Catalytic activity/Vol] 99 U/L Abnormal 0-44 [facility]; [facility] Work Phone: AST [Catalytic activity/Vol] 44 [iU]/L Abnormal 0-40 [facility] Work Phone: Comment on above: PATIENT WAS FASTINGP ERFORMED BY: CB [facility] Oopvsp5149 [address] RoadDublin [place] [id number] AST [Catalytic activity/Vol] 44 U/L Abnormal 0-40 [facility]; [facility] Work Phone: Bilirubin [Mass/Vol] 0.4 mg/dL Normal 0.0-1.2 [facility] Work Phone: Comment on above: PATIENT WAS FASTINGP ERFORMED BY: CB [facility] Cbcslg1415 [address] RoadDublin [place] [id number] Calcium [Mass/Vol] 10.1 mg/dL Normal 8.7-10.2 [facility] Work Phone: Comment on above: PATIENT WAS FASTINGP ERFORMED BY: AFRICA [facility] Ocbfew0625 [address] RoadDublin [place] [id number] Chloride [Moles/Vol] 99 mmol/L Normal 96-[address] [facility] hospitalensive [facility] Work Phone: Comment on above: PATIENT WAS FASTINGP ERFORMED BY: CB [facility] Fgnvre2769 [address] Roadblin [place] [id number] CO2 [Moles/Vol] 22 mmol/L Normal 20-29 [facility] Work Phone: Comment on above: PATIENT WAS FASTINGP ERFORMED BY: AFRICA LabCo Sgdujm1885 [address] RoadFormerly [facility] [id number] Creatinine [Mass/Vol] 1.02 mg/dL Normal 0.76-1.27 [facility]erensive [facility] Work Phone: Comment on above: PATIENT WAS FASTINGP ERFORMED BY: AFRICA LabCo Ulrrwt0754 [address] RoadPending Sale To Novant Healthin [place] [id number] GFR/1.73 sq M predicted among blacks CKD-EPI (S/P/Bld) [Vol rate/Area] 97 mL/min/1.73 Normal [facility] Work Phone: Comment on above: PATIENT WAS FASTINGP ERFORMED BY: [facility] Nizxpz9167 [address] RoadDublin [place] [id number] GFR/1.73 sq M predicted among non-blacks CKD-EPI (S/P/Bld) [Vol rate/Area] 84 mL/min/1.73 Normal [facility] Work Phone: Comment on above: PATIENT WAS FASTINGP ERFORMED BY: [facility] Yykxsj8417 [address] Roadblin [place] [id number] Globulin (S) [Mass/Vol] 2.1 g/dL Normal 1.5-4.5 [facility] Work Phone: Comment on above: PATIENT WAS FASTINGP ERFORMED BY: [facility] Pbboig3459 [address] RoadDuin [place] [id number] Glucose [Mass/Vol] 115 mg/dL Abnormal 65-99 [facility] Work Phone: Comment on above: PATIENT WAS FASTINGP ERFORMED BY: CB [facility] Advadd0083 [address] RoadDublin [place] [id number] Potassium [Moles/Vol] 5.2 mmol/L Normal 3.5-5.2 [facility] Work Phone: Comment on above: PATIENT WAS FASTINGP ERFORMED BY: CB [facility] Lwinyc7125 [address] RoadDublin [place] [id number] Protein [Mass/Vol] 7.1 g/dL Normal 6.0-8.5 [facility] Work Phone: Comment on above: PATIENT WAS FASTINGP ERFORMED BY: CB [facility] Jbnjwy6319 [address] RoadDublin [place] [id number] Sodium [Moles/Vol] 140 mmol/L Normal 134-144 [facility] Work Phone: Comment on above: PATIENT WAS FASTINGP ERFORMED BY: [facility] Gkfkoe0751 [address] RoadDublin [place] [id number] Urea nitrogen [Mass/Vol] 24 mg/dL Normal 6-24 [facility] Internal [facility] Work Phone: Comment on above: PATIENT WAS FASTINGP ERFORMED BY: [facility] Zwlklc6826 [address] RoadDublin [place] [id number] Urea nitrogen/Creatinine [Mass ratio] 24 mg/mg Abnormal 9-20 [facility] Work Phone: Comment on above: PATIENT WAS FASTINGP ERFORMED BY: CB [facility] Nfhudp9117 [address] RoadDublin [place] [id number] TSH ([id number])Ordered By: Lazaro Singh on 05-16-2019 TSH Qn 3.620 {uIU/mL} Normal 0.450-4.50 0 [facility] Internal [facility] Work Phone: Comment on above: PATIENT WAS FASTINGP ERFORMED BY: CB [facility] Uwadcj2640 [address] RoadDublin [place] [id number] URINALYSIS, W/ MICRO ([id number]) Ordered By: Activity Specialist on 05-16-2019 Appearance (U) Clear Normal Comprehens chalo Internal Medicine Work Phone: Comment on above: PATIENT WAS FASTINGP ERFORMED BY: AFRICA LabRay Jhvbfs2110 [address]Dublin [place] [id number] Bilirubin Ql (U) Negative Normal Comprehe nsive Internal Medicine Work Phone: Comment on above: PATIENT WAS FASTINGP ERFORMED BY: AFRICA LabSaint [facility] Irmhiz2280 [address] RoadDublin [place] [id number] Bilirubin Ql (U) Negative Normal Comprehe nsive Internal Medicine; [facility] Work Phone: Color (U) Yellow Normal [facility] Work Phone: Comment on above: PATIENT WAS FASTINGP ERFORMED BY: AFRICA [facility] Puqsdh20[address] RoadFormerly [facility] [id number] Glucose Ql (U) Negative Normal Comprehens chalo [facility] Work Phone: Comment on above: PATIENT WAS FASTINGP ERFORMED BY: AFRICA LabSaint [facility] Rewutb3280 [address] RoadDuin [place] [id number] Glucose Ql (U) Negative Normal Comprehens chalo [facility]; [facility] Work Phone: Hemoglobin Ql (U) Negative Normal Compreh ensive Internal Medicine Work Phone: Comment on above: PATIENT WAS FASTINGP ERFORMED BY: [facility]Saint [facility] Qjqfdf5623 Barrios RoadDuin [place] [id number] Hemoglobin Ql (U) Negative Normal Compreh ensive Internal Medicine; [facility] Work Phone: Ketones Ql (U) Negative Normal Comprehens chalo Internal Medicine Work Phone: Comment on above: PATIENT WAS FASTINGP ERFORMED BY: AFRICA LabSaint [facility] Pneska9557 [address] RoadDublin [place] [id number] Ketones Ql (U) Negative Normal Comprehens chalo [facility] Medicine; [facility] Work Phone: Leukocyte esterase Test strip Ql (U) Negative Normal [facility] Work Phone: Comment on above: PATIENT WAS FASTINGP ERFORMED BY: AFRICA LabRupinder TobarYzuiyw7308 [address] RoadDublin [place] [id number] Leukocyte esterase Test strip Ql (U) Negative Normal [facility]; [facility] Work Phone: Microscopic observation LM Nom (Urine sed) MICRON Normal [facility] Work Phone: Comment on above: Microscopic follows if indicated. PATIENT WAS FASTINGP ERFORMED BY: AFRICA LabCorosa TobarHbwpli7050 [address] RoadDublin [place] [id number] Microscopic observation LM Nom (Urine sed) See below: Normal [facility] Work Phone: Comment on above: Microscopic was luis alberto cated and was performed. PATIENT WAS FASTINGP ERFORMED BY: AFRICA Tobarlin6370 [address] RoadDublin [place] [id number] Nitrite Ql (U) Negative Normal Comprehens [facility]alo [facility] Medicine Work Phone: Comment on above: PATIENT WAS FASTINGP ERFORMED BY: AFRICA Tobarlin6370 [address] RoadDublin [place] [id number] Nitrite Ql (U) Negative Normal Comprehens [facility]alo [facility]; [facility] Work Phone: pH (U) 5.0 [pH] Normal 5.0-7.5 [facility] Work Phone: Comment on above: PATIENT WAS FASTINGP ERFORMED BY: AFRICA Rich Mfwufw0773 [address] RoadDuin [place] [id number] Protein Ql (U) Negative Normal Comprehens chalo Internal Medicine Work Phone: Comment on above: PATIENT WAS FASTINGP ERFORMED BY: AFRICA LabCo Kxsbnc1925 [address] RoadDublin [place] [id number] Protein Ql (U) Negative Normal Comprehens chalo [facility] Medicine; [facility] Work Phone: Specific gravity (U) [Rel density] 1.026 1 Normal 1.005-1.03 0 [facility] Work Phone: Comment on above: PATIENT WAS FASTINGP ERFORMED BY: FlipboardJFK Medical CenterFmpeps9288 [facility] [id number] Urobilinogen (U) [Mass/Vol] 0.2 mg/dL Normal 0.2-1.0 [facility]; [facility] Work Phone: Urobilinogen Test strip (U) [Mass/Vol] 0.2 mg/dL Normal 0.2-1.0 Comprehensi ve Internal Medicine Work Phone: Comment on above: PATIENT WAS FASTINGP ERFORMED BY: FlipboardJFK Medical CenterOqbvqz4296 [facility] [id number] Blood Glucose , Office ([phone])Ordered By: Freddy Smith on 08-04-2018 Glucose Glucometer molar conc (BldC) 119 1 Normal [facility] Work Phone: HgA1C , Office ([phone])Ordere d By: Freddy Smith on 08-04-2018 Hemoglobin A1c/Hemoglobin.total mass fraction (Bld) 5.5 % Normal 4.6 - 7.1 Comprehensiv e Internal Medicine Work Phone: CBC with auto diff ([phone])Or dered By: Activity Specialist on 08-03-2018 Basophils #/vol (Bld) 0.0 {x10E3/uL} Normal 0.0-0.2 [facility] Work Phone: Comment on above: PATIENT WAS FASTINGP ERFORMED BY: FlipboardJFK Medical CenterVgxfzz8631 [facility] [id number] Basophils (Bld) [#/Vol] 0.0 10*3/uL Normal 0.0-0.2 [facility]; [facility] Work Phone: Basophils/100 WBC (Bld) 1 % Normal [facility] Work Phone: Comment on above: PATIENT WAS FASTINGP ERFORMED BY: FlipboardJFK Medical CenterOrozqr7724 [facility] [id number] Eosinophils #/vol (Bld) 0.2 {x10E3/uL} Normal 0.0-0.4 [facility] Work Phone: Comment on above: PATIENT WAS FASTINGP ERFORMED BY: LabCo Ebubmu1124 [address] [facility]in [place] [id number] Eosinophils (Bld) [#/Vol] 0.2 10*3/uL Normal 0.0-0.4 [facility]; [facility] Work Phone: Eosinophils/100 WBC (Bld) 2 % Normal [facility] Work Phone: Comment on above: PATIENT WAS FASTINGP ERFORMED BY: LabSaint [facility] Imdxto[address] [facility] [id number] Erythrocyte distribution width Ratio (RBC) 14.6 % Normal 12.3-15.4 [facility] Work Phone: Comment on above: PATIENT WAS FASTINGP ERFORMED BY: LabMary [facility] [facility] [id number] Hematocrit Volume Fraction (Bld) 47.5 % Normal 37.5-51.0 [facility] Work Phone: Comment on above: PATIENT WAS FASTINGP ERFORMED BY: LabSaint [facility] Bvdvvg7248 [address] [facility] [id number] Hemoglobin mass conc (Bld) 16.4 g/dL Normal 13.0-17.7 [facility] Work Phone: Comment on above: PATIENT WAS FASTINGP ERFORMED BY: LabSaint [facility] Ckypib2576 [address] [facility] [id number] Immature granulocytes #/vol (Bld) 0.0 {x10E3/uL} Normal 0.0-0.1 [facility] Work Phone: Comment on above: PATIENT WAS FASTINGP ERFORMED BY: LabCo Pchhpu9324 [address] RoadPending Sale To [facility] Healthin [place] [id number] Immature granulocytes (Bld) [#/Vol] 0.0 10*3/uL Normal 0.0-0.1 [facility]; [facility] Work Phone: Immature granulocytes/100 WBC (Bld) 0 % Normal [facility] Work Phone: Comment on above: PATIENT WAS FASTINGP ERFORMED BY: AFRICA LabMary [facility] Hospital6[address]Dublin [place] [id number] Lymphocytes #/vol (Bld) 2.4 {x10E3/uL} Normal 0.7-3.1 [facility] Work Phone: Comment on above: PATIENT WAS FASTINGP ERFORMED BY: LabMary [facility]6370 [address] RoadPending Sale To [facility] Healthin [place] [id number] Lymphocytes (Bld) [#/Vol] 2.4 10*3/uL Normal 0.7-3.1 [facility]; [facility] Work Phone: Lymphocytes/100 WBC (Bld) 34 % Normal [facility] Work Phone: Comment on above: PATIENT WAS FASTINGP ERFORMED BY: AFRICA LabMary [facility] [facility] [id number] MCH Entitic mass (RBC) 32.4 pg Normal 26.6-33.0 [facility] Internal Medicine Work Phone: Comment on above: PATIENT WAS FASTINGP ERFORMED BY: LabMary [facility] [facility]in [place] [id number] MCHC mass conc (RBC) 34.5 g/dL Normal 31.5-35.7 [facility] Internal Medicine Work Phone: Comment on above: PATIENT WAS FASTINGP ERFORMED BY: Lab[facility] [facility]in [place] [id number] MCV Entitic volume (RBC) 94 fL Normal 79-97 [facility] Work Phone: Comment on above: PATIENT WAS FASTINGP ERFORMED BY: LabMary [facility] [facility] HospitalD[facility] [place] [id number] Monocytes #/vol (Bld) 0.9 {x10E3/uL} Normal 0.1-0.9 [facility] Work Phone: Comment on above: PATIENT WAS FASTINGP ERFORMED BY: Lab[facility]Dublin [place] [id number] Monocytes (Bld) [#/Vol] 0.9 10*3/uL Normal 0.1-0.9 [facility]; [facility] Work Phone: Monocytes/100 WBC (Bld) 13 % Normal [facility] Work Phone: Comment on above: PATIENT WAS FASTINGP ERFORMED BY: LabCo Omeytp5970 [address] RoadDublin [place] [id number] Neutrophils #/vol (Bld) 3.5 {x10E3/uL} Normal 1.4-7.0 [facility] Work Phone: Comment on above: PATIENT WAS FASTINGP ERFORMED BY: LabCo Tpzlus6743 [address] RoadDublin [place] [id number] Neutrophils (Bld) [#/Vol] 3.5 10*3/uL Normal 1.4-7.0 [facility]; [facility] Work Phone: Neutrophils/100 WBC (Bld) 50 % Normal [facility] Work Phone: Comment on above: PATIENT WAS FASTINGP ERFORMED BY: LabCo Gtalxn2415 [address] RoadDublin [place] [id number] Platelets #/vol (Bld) 208 {x10E3/uL} Normal 150-379 [facility] Work Phone: Comment on above: PATIENT WAS FASTINGP ERFORMED BY: LabCo Pawvby0742 [address] RoadDublin [place] [id number] Platelets (Bld) [#/Vol] 208 10*3/uL Normal 150-379 [facility]; [facility] Work Phone: RBC #/vol (Bld) 5.06 {x10E6/uL} Normal 4.14-5.80 [facility] Internal Medicine Work Phone: Comment on above: PATIENT WAS FASTINGP ERFORMED BY: [facility] Tthshc4765 [address] RoadDublin [place] [id number] RBC (Bld) [#/Vol] 5.06 10*6/uL Normal 4.14-5.80 [facility]; [facility] Work Phone: WBC #/vol (Bld) 7.0 {x10E3/uL} Normal 3.4-10.8 Compr ehensive Internal Medicine Work Phone: Comment on above: PATIENT WAS FASTINGP ERFORMED BY: AFRICA Tobarlin6370 [facility] [id number] WBC (Bld) [#/Vol] 7.0 10*3/uL Normal 3.4-10.[address] [facility] Internal Medicine; [facility] Work Phone: Lipid Panel ([id number])Ordered B y: Activity Specialist on 08-03-2018 Cholesterol in HDL mass conc 60 mg/dL Normal [facility] Work Phone: Comment on above: PATIENT WAS FASTINGP ERFORMED BY: AFRICA Tello6370 [facility] [id number] Cholesterol in LDL mass conc 137 mg/dL Abnormal 0-99 [facility] Work Phone: Comment on above: PATIENT WAS FASTINGP ERFORMED BY: AFRICA Tobarlin6370 [facility] [id number] Cholesterol in LDL/Cholesterol in HDL mass ratio 2.3 {ratio} Normal 0.0-3.6 [facility] Work Phone: Comment on above: LDL/HDL Ratio Men Wo men 1/2 Avg.Risk 1.0 1.5 Avg.Risk 3.6 3.2 2X Avg.Risk 6.2 5.0 3X Avg.Risk 8.0 6.1 PATIENT WAS FASTINGP ERFORMED BY: AFRICA Tobarlin6370 [facility] [id number] Cholesterol in VLDL mass conc 26 mg/dL Normal 5-40 [facility] Work Phone: Comment on above: PATIENT WAS FASTINGP ERFORMED BY: AFRICA Tobarlin6370 [facility] [id number] Cholesterol mass conc 223 mg/dL Abnormal 100-199 [facility] prehensive Internal Medicine Work Phone: Comment on above: PATIENT WAS FASTINGP ERFORMED BY: AFRICA LabRupinder TobarNwzosc3830 [facility] [id number] Triglyceride mass conc 131 mg/dL Normal 0-149 Co mprehensive Internal Medicine Work Phone: Comment on above: PATIENT WAS FASTINGP ERFORMED BY: AFRICA AkikoRupinder TobarKkoxiq4872 [facility] [id number] MICROALBUMINOrdered By: Syst em Staff Electronic Warfare Officer on 08-03-2018 Albumin DL <= 20 mg/L mass conc (U) 4.9 ug/mL Normal [facility] Work Phone: Comment on above: PATIENT WAS FASTINGP ERFORMED BY: AFRICA Tobarlin6370 [facility] [id number] Albumin/Creatinine mass ratio (U) 3.6 {mg/g_creat} Normal 0.0-30.0 [facility] Work Phone: Comment on above: Normal: 0.0 - 30.0 A lbuminuria: 31.0 - 300.0 Clinical albuminuria: >300.0 PATIENT WAS FASTINGP ERFORMED BY: AFRICA Tobarlin6370 [facility] [id number] Creatinine mass conc (U) 135.9 mg/dL Normal [facility] Work Phone: Comment on above: PATIENT WAS FASTINGP ERFORMED BY: AFRICA Tobarlin6370 [facility] [id number] Metabolic Panel, Comprehensi ve ([id number])Ordered By: Activity Specialist on 08-03-2018 Albumin mass conc 4.9 g/dL Normal 3.5-5.5 Compreh ensive Internal Medicine Work Phone: Comment on above: PATIENT WAS FASTINGP ERFORMED BY: AFRICA Tobarlin6370 [facility] [id number] Albumin/Globulin mass ratio 2.5 {ratio} Abnormal 1.2-2.2 [facility] Work Phone: Comment on above: PATIENT WAS FASTINGP ERFORMED BY: AFRICA Tobarlin6370 [facility] [id number] ALP [Catalytic activity/Vol] 40 U/L Normal 39-117 [facility]; [facility] Work Phone: ALP enzyme act/vol 40 [iU]/L Normal 39-117 [facility] Internal Medicine Work Phone: Comment on above: PATIENT WAS FASTINGP ERFORMED BY: AFRICA [facility] Vwpthl1312 [address] RoadDublin [place] [id number] ALT [Catalytic activity/Vol] 51 U/L Abnormal 0-44 [facility]; [facility] Internal Medicine Work Phone: ALT enzyme act/vol 51 [iU]/L Abnormal 0-44 [facility] Internal Medicine Work Phone: Comment on above: PATIENT WAS FASTINGP ERFORMED BY: AFRICA [facility] Wdvnqw9339 [address] RoadDublin [place] [id number] AST [Catalytic activity/Vol] 37 U/L Normal 0-40 [facility] Internal Medicine; [facility] Internal Medicine Work Phone: AST enzyme act/vol 37 [iU]/L Normal 0-40 [facility] Internal Medicine Work Phone: Comment on above: PATIENT WAS FASTINGP ERFORMED BY: AFRICA [facility] Cnwshv5484 [address] RoadDublin [place] [id number] Bilirubin mass conc 0.5 mg/dL Normal 0.0-1.2 [facility] Internal Medicine Work Phone: Comment on above: PATIENT WAS FASTINGP ERFORMED BY: AFRICA [facility] Syxbkb8426 [address] RoadDublin [place] [id number] Calcium mass conc 9.5 mg/dL Normal 8.7-10.2 [facility] Work Phone: Comment on above: PATIENT WAS FASTINGP ERFORMED BY: AFRICA [facility] Jkefie7115 [address] RoadDublin [place] [id number] Chloride molar conc 100 mmol/L Normal 96-106 Compr [facility] Internal Medicine Work Phone: Comment on above: PATIENT WAS FASTINGP ERFORMED BY: CB [facility] Rvzfft3632 [address] RoadDublin [place] [id number] CO2 molar conc 22 mmol/L Normal 20-29 Comprehens chalo Internal Medicine Work Phone: Comment on above: PATIENT WAS FASTINGP ERFORMED BY: AFRICA [facility] Necndj9572 [address] RoadDublin [place] [id number] Creatinine mass conc 0.95 mg/dL Normal 0.76-1.27 Comp rehensive Internal Medicine Work Phone: Comment on above: PATIENT WAS FASTINGP ERFORMED BY: CB [facility] Szzpun9409 [address] RoadDublin [place] [id number] GFR/1.73 sq M predicted among blacks CKD-EPI vol rate/area (S/P/Bld) 107 mL/min/1.73 Normal [facility] Work Phone: Comment on above: PATIENT WAS FASTINGP ERFORMED BY: AFRICA [facility] Jtrykw5846 [address] RoadDublin [place] [id number] GFR/1.73 sq M predicted among non-blacks CKD-EPI vol rate/area (S/P/Bld) 92 mL/min/1.73 Normal Comprehensiv e Internal Medicine Work Phone: Comment on above: PATIENT WAS FASTINGP ERFORMED BY: AFRICA [facility] Spnnec0942 [address] RoadDublin [place] [id number] Globulin mass conc (S) 2.0 g/dL Normal 1.5-4.5 Co [facility] servicesehensive Internal Medicine Work Phone: Comment on above: PATIENT WAS FASTINGP ERFORMED BY: [facility] Shdqvp8532 [address] RoadDublin [place] [id number] Glucose mass conc 96 mg/dL Normal 65-99 Compreh ensive Internal Medicine Work Phone: Comment on above: PATIENT WAS FASTINGP ERFORMED BY: [facility] Nnjbit5322 [address] RoadDublin [place] [id number] Potassium molar conc 4.7 mmol/L Normal 3.5-5.2 Comp rehensive Internal Medicine Work Phone: Comment on above: PATIENT WAS FASTINGP ERFORMED BY: CB [facility] Emakdl0117 [address] RoadDublin [place] [id number] Protein mass conc 6.9 g/dL Normal 6.0-8.5 Compreh ensive Internal Medicine Work Phone: Comment on above: PATIENT WAS FASTINGP ERFORMED BY: LabSaint [facility] Bhydeo6193 [facility] [id number] Sodium molar conc 139 mmol/L Normal 134-144 Compreh ensive Internal Medicine Work Phone: Comment on above: PATIENT WAS FASTINGP ERFORMED BY: [facility]6370 [facility] [id number] Urea nitrogen mass conc 22 mg/dL Normal 6-24 [facility] Work Phone: Comment on above: PATIENT WAS FASTINGP ERFORMED BY: [facility]6370 [facility] [id number] Urea nitrogen/Creatinine mass ratio 23 mg/mg Abnormal 9-20 [facility] Work Phone: Comment on above: PATIENT WAS FASTINGP ERFORMED BY: [facility]6370 [facility] [id number] TSH (THYROID STIMULATING HOR KIKO) ([id number])Ordered By: Activity Specialist on 08-03-2018 Thyrotropin Qn 3.390 {uIU/mL} Normal 0.450-4.50 0 [facility] Work Phone: Comment on above: PATIENT WAS FASTINGP ERFORMED BY: [facility]6370 [facility] [id number] Rapid Flu (57575 x 2)Ordered By: Freddy Smith on 04-25-2018 FLUAV Ag IA Ql (Throat) Negative Normal [facility] Work Phone: Rapid Flu (13399 x 2)Ordered By: Freddy Dodge on 04-25-2018 FLUAV Ag IA Ql (Throat) Negative Normal [facility]; [facility] Work Phone: POTASSIUM SERUM ([phone])Order ed By: Activity Specialist on 01-06-2018 Potassium molar conc 5.0 mmol/L Normal 3.5-5.1 Comp rehensive Internal Medicine Work Phone: Comment on above: stat stat stat stat; [facility] Ktceobl[address] [place], [address] ZULEIKA (ANTINUCLEAR ANTIBODY) ( [id number])Ordered By: Activity Specialist on 01-02-2018 Nuclear Ab Ql (S) Negative Normal Compreh ensive Internal Medicine Work Phone: Comment on above: PATIENT NOT FASTINGP ERFORMED BY: Cotendo Bqawrh8183 [address] RoadDublin [place] [id number] Nuclear Ab Ql (S) Negative Normal Compreh ensive Internal Medicine; [facility] Work Phone: C-REACTIVE PROTEIN ([phone])Or dered By: Activity Specialist on 01-02-2018 CRP [Mass/Vol] mg/L Normal 0.0-4.9 Comprehens chalo Internal Medicine; [facility] Work Phone: CRP mass conc mg/L Normal 0.0-4.9 Comprehensi ve Internal Medicine Work Phone: Comment on above: PATIENT NOT FASTINGP ERFORMED BY: Cotendo Lihnwm6266 [address] [facility] HospitalDublin [place] [id number] CALCIFIDIOL (88440) VIT D 25 Ordered By: Activity Specialist on 01-02-2018 25-Hydroxyvitamin D2+25-Hydroxyvitamin D3 mass conc 37.8 ng/mL Normal 30.0-100.0 [facility] Work Phone: Comment on above: Vitamin D deficiency has been defined by the [place] ofMedicine and an Endocrine Society practice guideline as alevel of serum 25-OH vitamin D less than 20 ng/mL (1,2).The Endocrine Society went on to further define vitamin Dinsufficiency as a level between 21 and 29 ng/mL (2).1. IOM ([place] of Medicine). 2010. Dietary reference intakes for calcium and D. [place]: The National Academies Press.2. Teetee MF, Saman NC, Moe ZAMORA, et al. Evaluation, treatment, and prevention of vitamin D deficiency: an Endocrine Society clinical practice guideline. JCEM. 2010; 96(7):1911-30. PATIENT NOT FASTINGP ERFORMED BY: Dana Translation [facility] Txuvlr4931 [address] RoadDublin [place] [id number] CBC (AUTO) ([id number])Ordered By : Activity Specialist on 01-02-2018 Erythrocyte distribution width Ratio (RBC) 14.2 % Normal 12.3-15.4 [facility] Work Phone: Comment on above: PATIENT NOT FASTINGP ERFORMED BY: CB [facility] Kvhdpf6102 [address] RoadDublin [place] [id number] Hematocrit Volume Fraction (Bld) 49.1 % Normal 37.5-51.0 [facility] Work Phone: Comment on above: PATIENT NOT FASTINGP ERFORMED BY: CB [facility] Iykuut5039 [address] RoadDublin [place] [id number] Hemoglobin mass conc (Bld) 17.3 g/dL Normal 13.0-17.7 [facility] Internal Medicine Work Phone: Comment on above: PATIENT NOT FASTINGP ERFORMED BY: CB [facility] Sethxq2016 [address] RoadDublin [place] [id number] MCH Entitic mass (RBC) 32.1 pg Normal 26.6-33.0 [facility] Internal Medicine Work Phone: Comment on above: PATIENT NOT FASTINGP ERFORMED BY: CB [facility] Tpidzc6909 [address] RoadDublin [place] [id number] MCHC mass conc (RBC) 35.2 g/dL Normal 31.5-35.7 [facility] Internal Medicine Work Phone: Comment on above: PATIENT NOT FASTINGP ERFORMED BY: CB [facility] Nvnvtx7978 [address] RoadDublin [place] [id number] MCV Entitic volume (RBC) 91 fL Normal 79-97 [facility] Work Phone: Comment on above: PATIENT NOT FASTINGP ERFORMED BY: CB [facility] Crgehw4337 [address] RoadDublin [place] [id number] Platelets #/vol (Bld) 220 {x10E3/uL} Normal 150-379 [facility] Internal Medicine Work Phone: Comment on above: PATIENT NOT FASTINGP ERFORMED BY: CB [facility] Udrwxi9905 [address] RoadDublin [place] [id number] Platelets (Bld) [#/Vol] 220 10*3/uL Normal 150-379 [facility]; [facility] Work Phone: RBC #/vol (Bld) 5.39 {x10E6/uL} Normal 4.14-5.[address] [facility]ensive Internal [facility] Work Phone: Comment on above: PATIENT NOT FASTINGP ERFORMED BY: AFRICA LabRay Riawyy3241 [facility] [id number] RBC (Bld) [#/Vol] 5.39 10*6/uL Normal 4.14-5.80 Compr ensive Internal Medicine; [facility] Work Phone: WBC #/vol (Bld) 7.6 {x10E3/uL} Normal 3.4-10.8 Compr ensive Internal Medicine Work Phone: Comment on above: PATIENT NOT FASTINGP ERFORMED BY: AFRICA ReunifyRay Bycusc9428 [facility] [id number] WBC (Bld) [#/Vol] 7.6 10*3/uL Normal 3.4-10.8 [facility] Internal Medicine; [facility] Work Phone: Folate ([phone])Ordered By: stem Staff Electronic Warfare Officer on 01-02-2018 Folate mass conc ng/mL Normal [facility] Internal Medicine Work Phone: Comment on above: A serum folate taina ntration of less than 3.1 ng/mL isconsidered to represent clinical deficiency. PATIENT NOT FASTINGP ERFORMED BY: AFRICA Lab[facility] Ffxfxy9052 [facility] [id number] Lipid Panel With LDL/HDL Rat ioOrdered By: Activity Specialist on 01-02-2018 Cholesterol in HDL mass conc 59 mg/dL Normal [facility] Work Phone: Comment on above: PATIENT NOT FASTINGP ERFORMED BY: AFRICA [facility] Lhubba0015 [facility] [id number] Cholesterol in LDL mass conc 107 mg/dL Abnormal 0-99 [facility] Work Phone: Comment on above: PATIENT NOT FASTINGP ERFORMED BY: AFRICA [facility]Co Ahcaks5239 [address] [facility]blin [place] [id number] Cholesterol in LDL/Cholesterol in HDL mass ratio 1.8 {ratio} Normal 0.0-3.6 [facility] Work Phone: Comment on above: LDL/HDL Ratio Men Wo men 1/2 Avg.Risk 1.0 1.5 Avg.Risk 3.6 3.2 2X Avg.Risk 6.2 5.0 3X Avg.Risk 8.0 6.1 PATIENT NOT FASTINGP ERFORMED BY: AFRICA [facility] Fltvhu[address]684 [address] [facility]in [place] [id number] Cholesterol in VLDL mass conc 48 mg/dL Abnormal 5-40 [facility] Work Phone: Comment on above: PATIENT NOT FASTINGP ERFORMED BY: AFRICA LabRupinder TobarUwcaqy6119 [address] [facility]in [place] [id number] Cholesterol mass conc 214 mg/dL Abnormal 100-199 Com prehensive Internal Medicine Work Phone: Comment on above: PATIENT NOT FASTINGP ERFORMED BY: AFRICA [facility] Ojkuol3854 [address] [facility]in [place] [id number] Triglyceride mass conc 238 mg/dL Abnormal 0-149 Co [facility] health servicesehensive Internal Medicine Work Phone: Comment on above: PATIENT NOT FASTINGP ERFORMED BY: AFRICA [facility] Rlsvif[address] [facility]in [place] [id number] METABOLIC PANEL, COMPREHENSI VE ([id number])Ordered By: Activity Specialist on 01-02-2018 Albumin mass conc 4.8 g/dL Normal 3.5-5.5 Compreh ensive Internal Medicine Work Phone: Comment on above: PATIENT NOT FASTINGP ERFORMED BY: AFRICA [facility] Etfftr1104 Barrios RoadDublin [place] [id number] Albumin/Globulin mass ratio 2.4 {ratio} Abnormal 1.2-2.2 [facility] Work Phone: Comment on above: PATIENT NOT FASTINGP ERFORMED BY: AFRICA [facility] Pqsqyj9633 [address] [facility] [place] [id number] ALP [Catalytic activity/Vol] 49 U/L Normal 39-117 [facility]; [facility] Internal Medicine Work Phone: ALP enzyme act/vol 49 [iU]/L Normal 39-117 [facility] Internal Medicine Work Phone: Comment on above: PATIENT NOT FASTINGP ERFORMED BY: CB [facility] Witpow1780 Barrios RoadDublin [place] [id number] ALT [Catalytic activity/Vol] 63 U/L Abnormal 0-44 [facility]; [facility] Internal Medicine Work Phone: ALT enzyme act/vol 63 [iU]/L Abnormal 0-44 [facility] Internal Medicine Work Phone: Comment on above: PATIENT NOT FASTINGP ERFORMED BY: CB [facility] Gnlnjb4900 Barrios RoadDublin [place] [id number] AST [Catalytic activity/Vol] 29 U/L Normal 0-40 [facility]; [facility] Internal Medicine Work Phone: AST enzyme act/vol 29 [iU]/L Normal 0-40 [facility] Internal Medicine Work Phone: Comment on above: PATIENT NOT FASTINGP ERFORMED BY: CB [facility] Hlfwyn4733 Barrios RoadDublin [place] [id number] Bilirubin mass conc 0.4 mg/dL Normal 0.0-1.2 Compr [facility] Internal Medicine Work Phone: Comment on above: PATIENT NOT FASTINGP ERFORMED BY: CB [facility] Zgwzde3105 Barrios RoadDublin [place] [id number] Calcium mass conc 10.0 mg/dL Normal 8.7-10.2 Compreh [facility] center[facility] Internal [facility] Work Phone: Comment on above: PATIENT NOT FASTINGP ERFORMED BY: CB [facility] Hptddv7956 Barrios RoadDublin [place] [id number] Chloride molar conc 101 mmol/L Normal 96-106 Compr ensive Internal Medicine Work Phone: Comment on above: PATIENT NOT FASTINGP ERFORMED BY: CB [facility] Zknwix5682 [address] RoadDublin [place] [id number] CO2 molar conc 24 mmol/L Normal 20-29 Comprehens chalo Internal Medicine Work Phone: Comment on above: PATIENT NOT FASTINGP ERFORMED BY: AFRICA [facility] Vwbtin6741 Barrios RoadDublin [place] [id number] Creatinine mass conc 0.90 mg/dL Normal 0.76-1.27 Comp rehensive Internal Medicine Work Phone: Comment on above: PATIENT NOT FASTINGP ERFORMED BY: CB [facility] Jrlepb6132 Barrios RoadDublin [place] [id number] GFR/1.73 sq M predicted among blacks CKD-EPI vol rate/area (S/P/Bld) 114 mL/min/1.73 Normal [facility] Work Phone: Comment on above: PATIENT NOT FASTINGP ERFORMED BY: AFRICA [facility] Hshshh7712 Barrios RoadDublin [place] [id number] GFR/1.73 sq M predicted among non-blacks CKD-EPI vol rate/area (S/P/Bld) 99 mL/min/1.73 Normal Comprehensiv e Internal Medicine Work Phone: Comment on above: PATIENT NOT FASTINGP ERFORMED BY: AFRICA [facility] Zogcgy5001 Barrios RoadDublin [place] [id number] Globulin mass conc (S) 2.0 g/dL Normal 1.5-4.5 [facility] servicesehens[facility] Internal Medicine Work Phone: Comment on above: PATIENT NOT FASTINGP ERFORMED BY: AFRICA [facility] Uixqeq9361 [address] [facility] [place] [id number] Glucose mass conc 111 mg/dL Abnormal 65-99 Compreh ensive Internal Medicine Work Phone: Comment on above: PATIENT NOT FASTINGP ERFORMED BY: AFRICA [facility] Vgscwu8930 [address] RoadDublin [place] [id number] Potassium molar conc 5.3 mmol/L Abnormal 3.5-5.2 Comp rehensive Internal Medicine Work Phone: Comment on above: PATIENT NOT FASTINGP ERFORMED BY: AFRICA [facility] Ssmopf4531 [address] RoadDublin [place] [id number] Protein mass conc 6.8 g/dL Normal 6.0-8.5 Compreh ensive Internal Medicine Work Phone: Comment on above: PATIENT NOT FASTINGP ERFORMED BY: AFRICA Tello6[address] [facility] [place] [id number] Sodium molar conc 143 mmol/L Normal 134-144 Compreh ensive Internal Medicine Work Phone: Comment on above: PATIENT NOT FASTINGP ERFORMED BY: AFRICA Ollie Tello[address] [facility] [place] [id number] Urea nitrogen mass conc 15 mg/dL Normal 6-24 [facility] Work Phone: Comment on above: PATIENT NOT FASTINGP ERFORMED BY: AFRICA Ollie Tello6[address] [facility] [id number] Urea nitrogen/Creatinine mass ratio 17 mg/mg Normal 9-20 [facility] Work Phone: Comment on above: PATIENT NOT FASTINGP ERFORMED BY: AFRICA Ollie Mehytc6035 [address] [facility] [id number] RHEUMATOID FACTOR-QUANT ([phone])Ordered By: Activity Specialist on 01-02-2018 Rheumatoid factor Qn [IU]/mL Normal 0.0-13.9 Comp rehensive Internal Medicine Work Phone: Comment on above: PATIENT NOT FASTINGP ERFORMED BY: AFRICA Ollie Tobarlin6[address] [facility] [id number] Rheumatoid factor Qn [IU]/mL Normal 0.0-13.9 Comp rehensive Internal Medicine; [facility] Work Phone: SED RATE ERYTHROCYTE ([id number]) Ordered By: Activity Specialist on 01-02-2018 ESR Velocity (Bld) 2 mm/h Normal 0-30 [facility]pre [facility] Work Phone: Comment on above: PATIENT NOT FASTINGP ERFORMED BY: AFRICA Ollie Tobarlin[address] [facility] [place] [id number] TSH ([id number])Ordered By: Syste m Staff Electronic Warfare Officer on 01-02-2018 Thyrotropin Qn 2.800 {uIU/mL} Normal 0.450-4.50 0 [facility] Work Phone: Comment on above: PATIENT NOT FASTINGP ERFORMED BY: AFRICA [facility] Kowtou[address]43 [address] [employer] [facility] Cloud ServicesBrynblin [place] [id number] VITAMIN B-12 (CYANOCOBALAMIN ) ([id number])Ordered By: Activity Specialist on 01-02-2018 Cobalamin (Vitamin B12) mass conc 908 pg/mL Normal 232-1245 [facility] Work Phone: Comment on above: PATIENT NOT FASTINGP ERFORMED BY: CB [facility] Iesohk64[address] [employer] [facility] Cloud Servicesblin [place] [id number] Written AuthorizationOrdered By: Activity Specialist on 01-02-2018 Written Authorization WAR Normal Com prehensive Internal Medicine Work Phone: Comment on above: Written Authorizatio n Received.Authorization received from ARIANNA SHAFER CNP [phone] by Ana Mike PATIENT NOT FASTINGP ERFORMED BY: [facility] Apilvo6224 [address] [employer] [facility] Cloud ServicesPending Sale To [facility]in [place] [id number] CHEST 2 VIEWSon 12-13-2017 CHEST 2 VIEWS Performed at [facility] APPROVED BY: RIANNA XIAO MD CHEST RADIOGRAPHS (2 views, PA and lateral) Exam Date/Time: 12/12/2017 10:33 PMIndications: Shortness of breath.Comparison: 09/14/2017. RESULTS: 1. Lines, Tubes, and Devices: N/A 2. Airway, lungs and Pleura: The trachea is unremarkable. The lungs are clear. The costophrenic sulci are sharp. There is no pneumothorax. 3. Cardiomediastinal silhouette, jordon and pulmonary vasculature: The cardiomediastinal silhouette is normal in size. The jordon and pulmonary vasculature are within normal. 4. Other: Bones are unremarkable. IMPRESSION: No evidence of acute cardiopulmonary process. No significant interval change compared to 09/14/2017. Normal [facility] Comprehensive Panelon 2017 Protein mass conc 6.9 g/dL Normal 6.4-8.2 [facility] Comment on above: Performed By: #### L PT ####[place] [address] Albumin mass conc 3.8 g/dL Normal 3.4-5.0 [facility] Comment on above: Performed By: #### L PT ####[facility]1 [place], [place] [address] ALP enzyme act/vol 61 U/L Normal 46-116 [facility] Comment on above: Performed By: #### L PT ####[facility]1 [place], [place] [address] Anion gap 3 molar conc 10 mmol/L Normal 8-20 [facility] Comment on above: Performed By: #### L PT ####[facility]1 [place], [place] [address] Bilirubin Ql (U) 0.5 mg/dL Normal 0.2-1.0 [facility] Comment on above: Performed By: #### L PT ####[address] [address] Calcium mass conc 8.0 mg/dL Low 8.5-10.1 [facility] Comment on above: Performed By: #### L PT ####[facility]1 [place], [place] [address] Chloride molar conc 107 mmol/L Normal 98-107 [facility] Comment on above: Performed By: #### L PT ####[facility]1 [place], [place] [address] CO2 molar conc 23 mmol/L Normal 21-32 [facility] Comment on above: Performed By: #### L PT ####[facility]1 [place], [place] [address] Creatinine mass conc 0.80 mg/dL Normal 0.67-1.17 [facility] Comment on above: Performed By: #### L PT ####[facility]1 [place] [address] Glucose mass conc 147 mg/dL High 70-99 [facility] Comment on above: Performed By: #### L PT ####[address] [address] Potassium molar conc 4.4 mmol/L Normal 3.5-5.1 [facility] Comment on above: Performed By: #### L PT ####[facility]1 [place] [address] Sodium molar conc 136 mmol/L Normal 136-145 [facility] Comment on above: Performed By: #### L PT ####[facility]1 [place] [address] Urea nitrogen mass conc (Bld) 11 mg/dL Normal 7-25 [facility] Comment on above: Performed By: #### L PT ####[facility]1 [place] [address] Urea nitrogen/Creatinine mass ratio 14 mg/mg Normal 10-20 [facility] Comment on above: Performed By: #### L PT ####[place] [address] AST-SGOT Blood 40 U/L High 15-37 [facility] Comment on above: Performed By: #### L PT ####[place] [address] ALT-SGPT Blood 63 U/L Normal 14-63 [facility] Comment on above: Performed By: #### L PT ####[place] [address] D-Dimer Quantitativeon 12-13 D-Dimer Quantitative 80 ng/mL(FEU) Normal <450 A [facility] Comment on above: Result Comment: The cutoff level recommended for the exclusion of deep veinthrombosis (DVT) or pulmonary embolism (PE) is 450 ng/mL(FEU).It is recommended that DVT or PE exclusion be restricted tosuspected outpatients with a low to moderate pretest probabilitymodel. Performed By: #### L PT ####[place] [address] Hemogram/Diffon 12-13-2017 Abs. Baso 0.08 thou/cmm Normal 0.00-0.08 [facility] Comment on above: Performed By: #### L CBCD ####[place] [address] Abs. Clarendon 0.93 thou/cmm Normal 0.20-1.00 [facility] Comment on above: Performed By: #### L CBCD ####[address] [address] Abs. Neut (ANC) 3.99 thou/cmm Normal 3.00-5.67 [facility] Comment on above: Performed By: #### L CBCD ####[address] [address] Basophils/100 WBC Auto (Bld) 1.0 % Normal [facility] Comment on above: Performed By: #### L CBCD ####[address] [address] Eosinophils Auto #/vol (Bld) 0.35 thou/cmm Normal 0.00-0.41 [facility] Comment on above: Performed By: #### L CBCD ####[address] [address] Eosinophils/100 WBC Auto (Bld) 4.2 % Normal [facility] Comment on above: Performed By: #### L CBCD ####[address] [address] Erythrocyte distribution width Auto Ratio (RBC) 13.3 % Normal 11.5-15.9 [facility] Comment on above: Performed By: #### L CBCD ####[address] [address] Hematocrit Auto Volume Fraction (Bld) 46.5 % Normal 42.0-52.0 [facility] Comment on above: Performed By: #### L CBCD ####[address] [address] Hemoglobin mass conc (Bld) 16.8 g/dL Normal 14.0-18.0 [facility] Comment on above: Performed By: #### L CBCD ####[address] [address] Lymphocytes Auto #/vol (Bld) 3.05 thou/cmm Normal 1.50-3.65 [facility] Comment on above: Performed By: #### L CBCD ####[address] [address] Lymphocytes/100 WBC Auto (Bld) 36.3 % Normal [facility] Comment on above: Performed By: #### L CBCD ####[address] [address] MCH Auto Entitic mass (RBC) 32.8 pg High 27.0-31.0 [facility] Comment on above: Performed By: #### L CBCD ####[place] [address] MCHC Auto mass conc (RBC) 36.1 % High 32.0-36.0 [facility] Comment on above: Performed By: #### L CBCD ####[address] [address] MCV Auto Entitic volume (RBC) 90.8 fL Normal 80.0-94.0 [facility] Comment on above: Performed By: #### L CBCD ####[place] [address] Monocytes/100 WBC Auto (Bld) 11.1 % Normal [facility] Comment on above: Performed By: #### L CBCD ####[address] [address] Platelet mean volume Auto Entitic volume (Bld) 9.5 fL Normal 7.1-10.5 [facility] Comment on above: Performed By: #### L CBCD ####[place] [address] Platelets Auto #/vol (Bld) 224 thou/cmm Normal 150-400 [facility] Comment on above: Performed By: #### L CBCD ####[address] [address] RBC Auto #/vol (Bld) 5.12 mil/cmm Normal 4.60-6.20 [facility] Comment on above: Performed By: #### L CBCD ####[place] [address] Seg Neutrophil 47.4 % Normal [facility] Comment on above: Performed By: #### L CBCD ####[address] [address] WBC Auto #/vol (Bld) 8.4 thou/cmm Normal 4.8-10.8 [facility] Comment on above: Performed By: #### L CBCD ####[address] [address] MDRD eGFRon 12-13-2017 GFR/1.73 sq M predicted among non-blacks MDRD vol rate/area (S/P/Bld) mL/min/{1.73_m2} Normal >60mL/min/ 1.73m2 [facility] Comment on above: Result Comment: If t he patient is , multiply the result by 1.210. Performed By: #### L PT ####[address] [address] Magnesium Bloodon 12-13-2017 Magnesium mass conc 1.7 mg/dL Low 1.8-2.4 [facility] Comment on above: Performed By: #### L PT ####[address] [address] TSHon 12-13-2017 Thyrotropin Qn 4.76 uIU/mL Normal 0.34-4.82 [facility] Comment on above: Performed By: #### L PT ####[address] [address] Troponin Ion 12-13-2017 Troponin I.cardiac mass conc ng/mL Normal <=0.07 [facility] Comment on above: Performed By: #### L PT ####[address] [address] Rapid Strep Test, Office ([phone])Ordered By: Ary Conrell on 11-23-2017 S. pyogenes Ag EIA Ql (Throat) Negative Normal [facility]; [facility] Work Phone: S. pyogenes Ag IA Ql (Unsp spec) Negative Normal [facility] Work Phone: THROAT CULTURE ([phone])Ordere d By: Activity Specialist on 11-23-2017 Bacteria identified Respiratory culture Nom (Unsp spec) Final report Normal [facility] Work Phone: Comment on above: PATIENT NOT FASTINGP ERFORMED BY: AFRICA Richrosa Lmimpj6456 [facility]Cr[facility] [id number] Information: SRC:TH Bacteria identified Respiratory culture Nom (Unsp spec) RRF Normal [facility] Work Phone: Comment on above: Routine respiratory chandra PATIENT NOT FASTINGP ERFORMED BY: AFRICA AkikoCorosa Irrfuy2995 [facility] [id number] Information: SRC:TH CHEST 1 VIEWon 09-14-2017 CHEST 1 VIEW Performed at [facility] APPROVED BY: DENEEN ZELAYA MD TECHNIQUE: CHEST X-RAY 1 VIEW EXAM DATE: 09/14/2017 1:14 AM COMPARISON STUDIES: None CLINICAL HISTORY: Chest pain or SOB, pleurisy or effusion suspected RESULT: Cardiomediastinal silhouette within normal limits. No overt pneumothorax or pleural effusion or focal consolidation. IMPRESSION:No acute abnormality Normal [facility] Comprehensive Panelon 2017 Albumin mass conc 3.9 g/dL Normal 3.4-5.0 [facility] Comment on above: Performed By: #### L P14 ####[place] [address] ALP enzyme act/vol 50 U/L Normal 46-116 [facility] Comment on above: Performed By: #### L P14 ####[address] [address] ALT-SGPT Blood 51 U/L Normal 14-63 [facility] Comment on above: Performed By: #### L P14 ####[address] [address] Anion gap 3 molar conc 12 mmol/L Normal 8-20 [facility] Comment on above: Performed By: #### L P14 ####[address] [address] AST-SGOT Blood 16 U/L Normal 15-37 [facility] Comment on above: Performed By: #### L P14 ####[facility]1 [place], [place] [address] Bilirubin Ql (U) 0.3 mg/dL Normal 0.2-1.0 [facility] Comment on above: Performed By: #### L P14 ####[facility]1 [place], [place] [address] Calcium mass conc 8.8 mg/dL Normal 8.5-10.1 [facility] Comment on above: Performed By: #### L P14 ####[facility]1 [place], [place] [address] Chloride molar conc 107 mmol/L Normal 98-107 [facility] Comment on above: Performed By: #### L P14 ####[place] [address] CO2 molar conc 24 mmol/L Normal 21-32 [facility] Comment on above: Performed By: #### L P14 ####[place] [address] Creatinine mass conc 1.02 mg/dL Normal 0.67-1.17 [facility] Comment on above: Performed By: #### L P14 ####[place] [address] Glucose mass conc 141 mg/dL High 70-99 [facility] Comment on above: Performed By: #### L P14 ####[address] [address] Potassium molar conc 4.3 mmol/L Normal 3.5-5.1 [facility] Comment on above: Performed By: #### L P14 ####[address] [address] Protein mass conc 6.5 g/dL Normal 6.4-8.2 [facility] Comment on above: Performed By: #### L P14 ####[place] [address] Sodium molar conc 138 mmol/L Normal 136-145 [facility] Comment on above: Performed By: #### L P14 ####[place] [address] Urea nitrogen mass conc (Bld) 17 mg/dL Normal 7-25 [facility] Comment on above: Performed By: #### L P14 ####[place] [address] Urea nitrogen/Creatinine mass ratio 17 mg/mg Normal 10-20 [facility] Comment on above: Performed By: #### L P14 ####[place] [address] Hemogram/Diffon 09-14-2017 Abs. Baso 0.05 thou/cmm Normal 0.00-0.08 [facility] Comment on above: Performed By: #### L CBCD ####[place] [address] Abs. Clarendon 0.70 thou/cmm Normal 0.20-1.00 [facility] Comment on above: Performed By: #### L CBCD ####[place] [address] Abs. Neut (ANC) 3.90 thou/cmm Normal 3.00-5.67 [facility] Comment on above: Performed By: #### L CBCD ####[place] [address] Basophils/100 WBC Auto (Bld) 0.6 % Normal [facility] Comment on above: Performed By: #### L CBCD ####[place] [address] Eosinophils Auto #/vol (Bld) 0.48 thou/cmm High 0.00-0.41 [facility] Comment on above: Performed By: #### L CBCD ####[place] [address] Eosinophils/100 WBC Auto (Bld) 6.2 % Normal [facility] Comment on above: Performed By: #### L CBCD ####[place] [address] Erythrocyte distribution width Auto Ratio (RBC) 13.1 % Normal 11.5-15.9 [facility] Comment on above: Performed By: #### L CBCD ####[address] [address] Hematocrit Auto Volume Fraction (Bld) 45.7 % Normal 42.0-52.0 [facility] Comment on above: Performed By: #### L CBCD ####[address] [address] Hemoglobin mass conc (Bld) 15.7 g/dL Normal 14.0-18.0 [facility] Comment on above: Performed By: #### L CBCD ####[address] [address] Lymphocytes Auto #/vol (Bld) 2.67 thou/cmm Normal 1.50-3.65 [facility] Comment on above: Performed By: #### L CBCD ####[address] [address] Lymphocytes/100 WBC Auto (Bld) 34.2 % Normal [facility] Comment on above: Performed By: #### L CBCD ####[address] [address] MCH Auto Entitic mass (RBC) 31.3 pg High 27.0-31.0 [facility] Comment on above: Performed By: #### L CBCD ####[address] [address] MCHC Auto mass conc (RBC) 34.4 % Normal 32.0-36.0 [facility] Comment on above: Performed By: #### L CBCD ####[address] [address] MCV Auto Entitic volume (RBC) 91.2 fL Normal 80.0-94.0 [facility] Comment on above: Performed By: #### L CBCD ####[address] [address] Monocytes/100 WBC Auto (Bld) 9.0 % Normal [facility] Comment on above: Performed By: #### L CBCD ####[address] [address] Platelet mean volume Auto Entitic volume (Bld) 9.3 fL Normal 7.1-10.5 [facility] Comment on above: Performed By: #### L CBCD ####[place] [address] Platelets Auto #/vol (Bld) 199 thou/cmm Normal 150-400 [facility] Comment on above: Performed By: #### L CBCD ####[place] [address] RBC Auto #/vol (Bld) 5.01 mil/cmm Normal 4.60-6.20 [facility] Comment on above: Performed By: #### L CBCD ####[place] [address] Seg Neutrophil 50.0 % Normal [facility] Comment on above: Performed By: #### L CBCD ####[place] [address] WBC Auto #/vol (Bld) 7.8 thou/cmm Normal 4.8-10.8 [facility] Comment on above: Performed By: #### L CBCD ####[place] [address] Lipase Bloodon 09-14-2017 Lipase Blood 132 U/L Normal 73-393 [facility] Comment on above: Performed By: #### L LIP ####[place] [address] MDRD eGFRon 09-14-2017 GFR/1.73 sq M predicted among non-blacks MDRD vol rate/area (S/P/Bld) mL/min/{1.73_m2} Normal >60mL/min/ 1.73m2 [facility] Comment on above: Result Comment: If t he patient is , multiply the result by 1.210. Performed By: #### L GFR ####[place] [address] Protimeon 09-14-2017 INR Coag RelTime (PPP) 0.97 {INR} Normal [facility] Comment on above: Result Comment: Bo dard Therapy 2.0-3.0High Dose 2.5-3.5 Performed By: #### L PT ####[place] [address] Prothrombin time (PT) Coag time (PPP) 10.1 s Normal 9.7-13.0 [facility] Comment on above: Result Comment: Note new reference range. Performed By: #### L PT ####[place] [address] Troponin Ion 09-14-2017 Troponin I.cardiac mass conc ng/mL Normal <=0.07 [facility] Comment on above: Performed By: #### L TRP ####[place] [address] Troponin I.cardiac mass conc ng/mL Normal <=0.07 [facility] Comment on above: Performed By: #### L TRP ####[place] [address] Blood Glucose , Office ([phone])Ordered By: Briana Green on 09-06-2017 Glucose Glucometer molar conc (BldC) 100 1 Normal [facility] Work Phone: HgA1C , Office ([phone])Ordere d By: Briana Green on 09-06-2017 Hemoglobin A1c/Hemoglobin.total mass fraction (Bld) 5.5 % Normal 4.6 - 7.1 [facility] Work Phone: [id number] ([phone])Ordered By: Activity Specialist on 09-02-2017 AFP.tumor marker mass conc 4.2 ng/mL Normal 0.0-8.3 [facility] Work Phone: Comment on above: Jonnathan ECLIA methodol ogy PATIENT WAS FASTINGP ERFORMED BY: [facility]CoJFK [facility] CenterNxzrfp9720 [facility] [id number] CALCIFEDIOL ([id number])Ordered B y: Activity Specialist on 09-02-2017 25-Hydroxyvitamin D2+25-Hydroxyvitamin D3 mass conc 31.3 ng/mL Normal 30.0-100.0 [facility] Work Phone: Comment on above: Vitamin D deficiency has been defined by the [place] ofMedicine and an Endocrine Society practice guideline as alevel of serum 25-OH vitamin D less than 20 ng/mL (1,2).The Endocrine Society went on to further define vitamin Dinsufficiency as a level between 21 and 29 ng/mL (2).1. IOM ([place] of Medicine). 2010. Dietary reference intakes for calcium and D. [place]: The National Academies Press.2. Teetee MF, Saman BAY, Moe ZAMORA, et al. Evaluation, treatment, and prevention of vitamin D deficiency: an Endocrine Society clinical practice guideline. JCEM. 2010; 96(7):1911-30. PATIENT WAS FASTINGP ERFORMED BY: AFRICA [facility] Mlbvrg1815 [address]rios RoadDublin [place] [id number] LIPID PANEL ([id number])Ordered B y: Activity Specialist on 09-02-2017 Cholesterol in HDL mass conc 46 mg/dL Normal [facility] Work Phone: Comment on above: PATIENT WAS FASTINGP ERFORMED BY: CB [facility] Ppscfx1016 [address] RoadDublin [place] [id number] Cholesterol in LDL mass conc 128 mg/dL Abnormal 0-99 [facility] Work Phone: Comment on above: PATIENT WAS FASTINGP ERFORMED BY: CB [facility] Zynxzu1835 [address] RoadDublin [place] [id number] Cholesterol in LDL/Cholesterol in HDL mass ratio 2.8 {ratio} Normal 0.0-3.6 [facility] Work Phone: Comment on above: LDL/HDL Ratio Men Wo men 1/2 Avg.Risk 1.0 1.5 Avg.Risk 3.6 3.2 2X Avg.Risk 6.2 5.0 3X Avg.Risk 8.0 6.1 PATIENT WAS FASTINGP ERFORMED BY: CB [facility] Iiwnuu5973 [address] RoadDublin [place] [id number] Cholesterol in VLDL mass conc 36 mg/dL Normal 5-40 [facility] Work Phone: Comment on above: PATIENT WAS FASTINGP ERFORMED BY: CB [facility] Nozakl9022 [address] RoadDublin [place] [id number] Cholesterol mass conc 210 mg/dL Abnormal 100-199 Com prehensive Internal Medicine Work Phone: Comment on above: PATIENT WAS FASTINGP ERFORMED BY: AFRICA Ollie Tello6370 [facility] [id number] Triglyceride mass conc 178 mg/dL Abnormal 0-149 Co mprehensive [facility] Work Phone: Comment on above: PATIENT WAS FASTINGP ERFORMED BY: AFRICA LabCorosa TobarHrrwgq9867 [facility] [id number] Metabolic Panel, Comprehensi ve ([id number])Ordered By: Activity Specialist on 09-02-2017 Albumin mass conc 5.1 g/dL Normal 3.5-5.5 Compreh ensive Internal Medicine Work Phone: Comment on above: PATIENT WAS FASTINGP ERFORMED BY: AFRICA LabRupinder TobarCjnpwx0608 [facility] [id number] Albumin/Globulin mass ratio 3.0 {ratio} Abnormal 1.2-2.2 [facility] Work Phone: Comment on above: PATIENT WAS FASTINGP ERFORMED BY: AFRICA LabCorosa TobarIotvqc4137 [facility] [id number] ALP [Catalytic activity/Vol] 43 U/L Normal 39-117 [facility]; [facility] Work Phone: ALP enzyme act/vol 43 [iU]/L Normal 39-117 [facility] Internal Medicine Work Phone: Comment on above: PATIENT WAS FASTINGP ERFORMED BY: AFRICA [facility] Eupdxk9196 [facility] [id number] ALT [Catalytic activity/Vol] 48 U/L Abnormal 0-44 [facility]; [facility] Work Phone: ALT enzyme act/vol 48 [iU]/L Abnormal 0-44 [facility] Internal Medicine Work Phone: Comment on above: PATIENT WAS FASTINGP ERFORMED BY: AFRICA [facility] Wfhxzz7261 [facility] [id number] AST [Catalytic activity/Vol] 32 U/L Normal 0-40 [facility]; [facility] Work Phone: AST enzyme act/vol 32 [iU]/L Normal 0-40 [facility] Internal Medicine Work Phone: Comment on above: PATIENT WAS FASTINGP ERFORMED BY: CB [facility] Jcahxa4646 [address] RoadDublin [place] [id number] Bilirubin mass conc 0.6 mg/dL Normal 0.0-1.2 [facility] Work Phone: Comment on above: PATIENT WAS FASTINGP ERFORMED BY: CB [facility] Cecypv2039 [address] RoadDublin [place] [id number] Calcium mass conc 9.5 mg/dL Normal 8.7-10.2 Compreh [facility] Work Phone: Comment on above: PATIENT WAS FASTINGP ERFORMED BY: CB [facility] Ojwbfo2969 [address] RoadDublin [place] [id number] Chloride molar conc 98 mmol/L Normal 96-106 Compr [facility] Internal Medicine Work Phone: Comment on above: PATIENT WAS FASTINGP ERFORMED BY: CB [facility] Bttzps7597 [address] RoadDublin [place] [id number] CO2 molar conc 21 mmol/L Normal 18-29 [facility] Internal Medicine Work Phone: Comment on above: Effective September 19, 2017 Carbon Dioxide, Total reference interval will be changing to: Age Male Female 0 days - 30 days 16 - 29 16 - 29 31 days - 1 year 15 - 25 15 - 25 2 years - 5 years 17 - 26 17 - 26 6 years - 12 years 19 - 27 19 - 27 >12 years 20 - 29 20 - 29 PATIENT WAS FASTINGP ERFORMED BY: CB [facility] Cmqyke1840 [address] RoadDublin [place] [id number] Creatinine mass conc 1.01 mg/dL Normal 0.76-1.27 Comp [facility] Internal Medicine Work Phone: Comment on above: PATIENT WAS FASTINGP ERFORMED BY: CB [facility] Chivrq2183 [address] RoadDublin [place] [id number] GFR/1.73 sq M predicted among blacks CKD-EPI vol rate/area (S/P/Bld) 100 mL/min/1.73 Normal [facility] Work Phone: Comment on above: PATIENT WAS FASTINGP ERFORMED BY: AFRICA Ollie Tello6370 [address]blin [place] [id number] GFR/1.73 sq M predicted among non-blacks CKD-EPI vol rate/area (S/P/Bld) 86 mL/min/1.73 Normal Comprehensiv e Internal Medicine Work Phone: Comment on above: PATIENT WAS FASTINGP ERFORMED BY: AFRICA LabCorosa TobarBhhkxp3225 [address] [facility]in [place] [id number] Globulin mass conc (S) 1.7 g/dL Normal 1.5-4.5 Co mprehensive [facility] Work Phone: Comment on above: PATIENT WAS FASTINGP ERFORMED BY: AFRICA LabRupinder TobarVucrpw0891 [facility] [id number] Glucose mass conc 89 mg/dL Normal 65-99 Compreh ensive Internal Medicine Work Phone: Comment on above: PATIENT WAS FASTINGP ERFORMED BY: AFRICA LabRupinder TobarPyxliv5941 [facility] [id number] Potassium molar conc 4.6 mmol/L Normal 3.5-5.2 Comp rehensive Internal Medicine Work Phone: Comment on above: PATIENT WAS FASTINGP ERFORMED BY: AFRICA LabCorosa TobarPfhjcq2235 [facility] [id number] Protein mass conc 6.8 g/dL Normal 6.0-8.5 Compreh ensive Internal Medicine Work Phone: Comment on above: PATIENT WAS FASTINGP ERFORMED BY: AFRICA LabCorosa Zylaqj5774 [facility] [id number] Sodium molar conc 137 mmol/L Normal 134-144 Compreh ensive Internal Medicine Work Phone: Comment on above: PATIENT WAS FASTINGP ERFORMED BY: AFRICA LabCorosa TobarOlijis8072 [address] [facility] [id number] Urea nitrogen mass conc 20 mg/dL Normal 6-24 [facility] Work Phone: Comment on above: PATIENT WAS FASTINGP ERFORMED BY: AFRICA [employer] Sukvzh8531 [facility] [id number] Urea nitrogen/Creatinine mass ratio 20 mg/mg Normal 9-20 [facility] Work Phone: Comment on above: PATIENT WAS FASTINGP ERFORMED BY: Cotendo Crzmzh2588 [facility] [id number] PSA (PROSTATE SPECIFIC ANTIG EN) (V76.44)Ordered By: Activity Specialist on 09-02-2017 Prostate specific Ag mass conc 0.4 ng/mL Normal 0.0-4.0 [facility] Work Phone: Comment on above: Tube2Tone ECLIA methodol ogy. .According to the [place] [employer], Serum PSA shoulddecrease and remain at undetectable levels after radicalprostatectomy. The AUA defines biochemical recurrence as an initialPSA value 0.2 ng/mL or greater followed by a subsequent confirmatoryPSA value 0.2 ng/mL or greater.Values obtained with different assay methods or kits cannot be usedinterchangeably. Results cannot be interpreted as absolute evidenceof the presence or absence of malignant disease. PATIENT WAS FASTINGP ERFORMED BY: AFRICA [employer] Zjitbs1810 [facility] [id number] HgA1C , Office ([id number])Ordere d By: Ary Cornell on 06-07-2017 Hemoglobin A1c/Hemoglobin.total mass fraction (Bld) 5.6 % Normal 4.6 - 7.1 Comprehensiv e Internal Medicine Work Phone: CALCIFEDIOL ([id number])Ordered B y: Activity Specialist on 05-25-2017 25-Hydroxyvitamin D2+25-Hydroxyvitamin D3 mass conc 27.8 ng/mL Abnormal 30.0-100.0 [facility] Work Phone: Comment on above: Vitamin D deficiency has been defined by the [place] ofMedicine and an Endocrine Society practice guideline as alevel of serum 25-OH vitamin D less than 20 ng/mL (1,2).The Endocrine Society went on to further define vitamin Dinsufficiency as a level between 21 and 29 ng/mL (2).1. IOM ([place] of Medicine). 2010. Dietary reference intakes for calcium and D. [place]: The National Academies Press.2. Teetee MF, Saman BAY, Moe ZAMORA, et al. Evaluation, treatment, and prevention of vitamin D deficiency: an Endocrine Society clinical practice guideline. JCEM. 2010; 96(7):1911-30. PATIENT WAS FASTINGP ERFORMED BY: AFRICA [facility] Xtdpcp8607 [address] RoadDublin [place] [id number] LIPID PANEL ([id number])Ordered B y: Activity Specialist on 05-25-2017 Cholesterol in HDL mass conc 52 mg/dL Normal [facility] Work Phone: Comment on above: PATIENT WAS FASTINGP ERFORMED BY: AFRICA LabMoleculinrp Oxbkbr8029 [address] [place] [id number] Cholesterol in LDL mass conc 98 mg/dL Normal 0-99 [facility] Work Phone: Comment on above: PATIENT WAS FASTINGP ERFORMED BY: AFRICA LabMoleculinrp Mibgex4236 [address] [id number] Cholesterol in LDL/Cholesterol in HDL mass ratio 1.9 {ratio_units} Normal 0.0-3.6 [facility] Work Phone: Comment on above: LDL/HDL Ratio Men Wo men 1/2 Avg.Risk 1.0 1.5 Avg.Risk 3.6 3.2 2X Avg.Risk 6.2 5.0 3X Avg.Risk 8.0 6.1 PATIENT WAS FASTINGP ERFORMED BY: AFRICA LabMoleculinrp Prtlgv2092 [address] [place] [id number] Cholesterol in VLDL mass conc 55 mg/dL Abnormal 5-40 [facility] Work Phone: Comment on above: PATIENT WAS FASTINGP ERFORMED BY: AFRICA [facility] Glhlhb5685 [address] [employer] & Cloud ServicesDublin [place] [id number] Cholesterol mass conc 205 mg/dL Abnormal 100-199 Com prehensive Internal Medicine Work Phone: Comment on above: PATIENT WAS FASTINGP ERFORMED BY: CB [facility] Ixptpa1830 [facility] [id number] Triglyceride mass conc 275 mg/dL Abnormal 0-149 Co [facility] Internal Medicine Work Phone: Comment on above: PATIENT WAS FASTINGP ERFORMED BY: AFRICA Tello6370 [facility] [id number] METABOLIC PANEL, COMPREHENSI VE ([id number])Ordered By: Activity Specialist on 05-25-2017 Albumin mass conc 4.7 g/dL Normal 3.5-5.5 Compreh [facility] Internal Medicine Work Phone: Comment on above: PATIENT WAS FASTINGP ERFORMED BY: AFRICA Tobarlin6370 [facility] [id number] Albumin/Globulin mass ratio 2.2 {ratio} Normal 1.2-2.2 [facility] Work Phone: Comment on above: PATIENT WAS FASTINGP ERFORMED BY: AFRICA Ollie Tobarlin6370 [facility] [id number] ALP [Catalytic activity/Vol] 52 U/L Normal 39-117 [facility]; [facility] Internal Medicine Work Phone: ALP enzyme act/vol 52 [iU]/L Normal 39-117 [facility] Internal Medicine Work Phone: Comment on above: PATIENT WAS FASTINGP ERFORMED BY: AFRICA Ollie Tobarlin6370 [facility] [id number] ALT [Catalytic activity/Vol] 119 U/L Abnormal 0-44 [facility]; [facility] Internal Medicine Work Phone: ALT enzyme act/vol 119 [iU]/L Abnormal 0-44 [facility] Internal Medicine Work Phone: Comment on above: PATIENT WAS FASTINGP ERFORMED BY: AFRICA Rich Lootll9753 [facility] [id number] AST [Catalytic activity/Vol] 61 U/L Abnormal 0-40 [facility]; [facility] Internal Medicine Work Phone: AST enzyme act/vol 61 [iU]/L Abnormal 0-40 [facility] Internal Medicine Work Phone: Comment on above: PATIENT WAS FASTINGP ERFORMED BY: AFRICA [facility] Cfyvkj6139 [address] RoadDublin [place] [id number] Bilirubin mass conc 0.4 mg/dL Normal 0.0-1.2 Compr ehensive Internal Medicine Work Phone: Comment on above: PATIENT WAS FASTINGP ERFORMED BY: AFRICA [facility] Ghlmrp1604 [address] RoadDublin [place] [id number] Calcium mass conc 9.4 mg/dL Normal 8.7-10.2 Compreh ensive Internal Medicine Work Phone: Comment on above: PATIENT WAS FASTINGP ERFORMED BY: AFRICA [facility] Wtlhbp0338 [address] RoadPending Sale To Novant Healthin [place] [id number] Chloride molar conc 100 mmol/L Normal 96-106 Compr ensive Internal Medicine Work Phone: Comment on above: PATIENT WAS FASTINGP ERFORMED BY: AFRICA [facility] Cspami6496 [address] [facility]in [place] [id number] CO2 molar conc 18 mmol/L Normal 18-29 Comprehens chalo Internal Medicine Work Phone: Comment on above: PATIENT WAS FASTINGP ERFORMED BY: AFRICA [facility] Viieee5405 [address] [facility]in [place] [id number] Creatinine mass conc 0.89 mg/dL Normal 0.76-1.[address] [facility] Work Phone: Comment on above: PATIENT WAS FASTINGP ERFORMED BY: AFRICA [facility] Avfdgn2672 [address] [facility] [id number] GFR/1.73 sq M predicted among blacks CKD-EPI vol rate/area (S/P/Bld) 115 mL/min/1.73 Normal [facility] Work Phone: Comment on above: PATIENT WAS FASTINGP ERFORMED BY: CB [facility] Rhemzf4592 [address] Roadblin [place] [id number] GFR/1.73 sq M predicted among non-blacks CKD-EPI vol rate/area (S/P/Bld) 100 mL/min/1.73 Normal Comprehensiv e Internal Medicine Work Phone: Comment on above: PATIENT WAS FASTINGP ERFORMED BY: AFRICA [facility] Zsdjbt2309 [address] RoadDublin [place] [id number] Globulin mass conc (S) 2.1 g/dL Normal 1.5-4.5 Co mprehensive [facility] Work Phone: Comment on above: PATIENT WAS FASTINGP ERFORMED BY: AFRICA [facility] Wjfusa9737 [address] RoadDublin [place] [id number] Glucose mass conc 126 mg/dL Abnormal 65-99 Compreh ensive Internal Medicine Work Phone: Comment on above: PATIENT WAS FASTINGP ERFORMED BY: AFRICA [facility] Qwedyv5574 [address] RoadDublin [place] [id number] Potassium molar conc 5.0 mmol/L Normal 3.5-5.2 Comp rehensive Internal Medicine Work Phone: Comment on above: PATIENT WAS FASTINGP ERFORMED BY: AFRICA LabCorosa TobarBlrexf4045 [address] RoadDublin [place] [id number] Protein mass conc 6.8 g/dL Normal 6.0-8.5 Compreh ensive Internal Medicine Work Phone: Comment on above: PATIENT WAS FASTINGP ERFORMED BY: AFRICA LabCorosa TobarSbnibh2886 [address] RoadDublin [place] [id number] Sodium molar conc 140 mmol/L Normal 134-144 Compreh ensive Internal Medicine Work Phone: Comment on above: PATIENT WAS FASTINGP ERFORMED BY: AFRICA [facility] Omdlua7365 [address] RoadDublin [place] [id number] Urea nitrogen mass conc 18 mg/dL Normal 6-24 [facility] Work Phone: Comment on above: PATIENT WAS FASTINGP ERFORMED BY: AFRICA [facility] Phzwwd8928 [address] RoadDublin [place] [id number] Urea nitrogen/Creatinine mass ratio 20 mg/mg Normal 9-20 [facility] Work Phone: Comment on above: PATIENT WAS FASTINGP ERFORMED BY: AFRICA [facility] Cwpssu8133 [address] RoadDublin [place] [id number] VITAMIN B-12 (CYANOCOBALAMIN ) ([id number])Ordered By: Activity Specialist on 05-25-2017 Cobalamin (Vitamin B12) mass conc 777 pg/mL Normal 232-1245 [facility] Work Phone: Comment on above: PATIENT WAS FASTINGP ERFORMED BY: [employer] Rlmooe3898 [address] RoadDublin [place] [id number] ZULEIKA (ANTINUCLEAR ANTIBODY) ( [id number])Ordered By: Activity Specialist on 12-21-2016 Nuclear Ab Ql (S) Negative Normal Compreh ensive Internal Medicine Work Phone: Comment on above: PATIENT NOT FASTINGP ERFORMED BY: [facility] Qkprtj3995 [address] RoadDublin [place] [id number] Nuclear Ab Ql (S) Negative Normal Compreh ensive Internal Medicine; [facility] Work Phone: CALCIFIDIOL ([id number]) VIT D 25 Ordered By: Activity Specialist on 12-21-2016 25-Hydroxyvitamin D2+25-Hydroxyvitamin D3 mass conc 28.3 ng/mL Abnormal 30.0-100.0 [facility] Work Phone: Comment on above: Vitamin D deficiency has been defined by the [place] ofMedicine and an Endocrine Society practice guideline as alevel of serum 25-OH vitamin D less than 20 ng/mL (1,2).The Endocrine Society went on to further define vitamin Dinsufficiency as a level between 21 and 29 ng/mL (2).1. IOM ([place] of Medicine). 2010. Dietary reference intakes for calcium and D. [place]ema [place]: The National Academies Press.2. Teetee MF, Saman [place], Moe ZAMORA, et al. Evaluation, treatment, and prevention of vitamin D deficiency: an Endocrine Society clinical practice guideline. JCEM. 2010; 96(7):1911-30. PATIENT NOT FASTINGP ERFORMED BY: Dana Translation [facility] Orlrzw8310 [address] RoadDublin [place] [id number] CBC (AUTO) ([id number])Ordered By : Activity Specialist on 12-21-2016 Erythrocyte distribution width Ratio (RBC) 13.8 % Normal 12.3-15.4 [facility] Work Phone: Comment on above: PATIENT NOT FASTINGP ERFORMED BY: CB [facility] Kwgzrc4036 [address] [facility] [id number] Hematocrit Volume Fraction (Bld) 46.2 % Normal 37.5-51.0 [facility] Internal Medicine Work Phone: Comment on above: PATIENT NOT FASTINGP ERFORMED BY: CB [facility] Swbakw1058 [address] [facility] [id number] Hemoglobin mass conc (Bld) 16.5 g/dL Normal 12.6-17.7 [facility] Internal Medicine Work Phone: Comment on above: PATIENT NOT FASTINGP ERFORMED BY: CB [facility] Nkhakk1726 [address] [facility]in [place] [id number] MCH Entitic mass (RBC) 32.7 pg Normal 26.6-33.0 [facility] Internal Medicine Work Phone: Comment on above: PATIENT NOT FASTINGP ERFORMED BY: CB [facility] Azyiiy6581 [address] [facility] [id number] MCHC mass conc (RBC) 35.7 g/dL Normal 31.5-35.7 [facility] Internal Medicine Work Phone: Comment on above: PATIENT NOT FASTINGP ERFORMED BY: CB [facility] Geuiro3543 [address] [facility] [id number] MCV Entitic volume (RBC) 92 fL Normal 79-97 [facility] Internal Medicine Work Phone: Comment on above: PATIENT NOT FASTINGP ERFORMED BY: CB [facility] Uscqxx5624 [address] [facility] [id number] Platelets #/vol (Bld) 191 {x10E3/uL} Normal 150-379 [facility] Work Phone: Comment on above: PATIENT NOT FASTINGP ERFORMED BY: CB [facility] Teggwk7242 [address] [facility] [id number] Platelets (Bld) [#/Vol] 191 10*3/uL Normal 150-379 [facility]; [facility] Internal Medicine Work Phone: RBC #/vol (Bld) 5.04 {x10E6/uL} Normal 4.14-5.[address] [facility] Work Phone: Comment on above: PATIENT NOT FASTINGP ERFORMED BY: AFRICA [facility] Lrlvly1000 [address] [place] [id number] RBC (Bld) [#/Vol] 5.04 10*6/uL Normal 4.14-5.80 Compr ensive Internal Medicine; [facility] Work Phone: WBC #/vol (Bld) 6.9 {x10E3/uL} Normal 3.4-10.8 Compr ensive Internal Medicine Work Phone: Comment on above: PATIENT NOT FASTINGP ERFORMED BY: AFRICA [facility] Lpkbgm8285 [address] [place] [id number] WBC (Bld) [#/Vol] 6.9 10*3/uL Normal 3.4-10.[address] [facility] Internal Medicine; [facility] Work Phone: Folate ([id number])Ordered By: Sy stem Staff Electronic Warfare Officer on 12-21-2016 Folate mass conc ng/mL Normal Comprehe nsive Internal Medicine Work Phone: Comment on above: A serum folate taina ntration of less than 3.1 ng/mL isconsidered to represent clinical deficiency. PATIENT NOT FASTINGP ERFORMED BY: AFRICA [facility] Xufktl8735 [address] [place] [id number] METABOLIC PANEL, COMPREHENSI VE ([id number])Ordered By: Activity Specialist on 12-21-2016 Albumin mass conc 4.9 g/dL Normal 3.5-5.5 Compreh ensive Internal Medicine Work Phone: Comment on above: PATIENT NOT FASTINGP ERFORMED BY: AFRICA [facility] Ezpruw4463 [address] [employer] [facility] & Cloud ServicesDublin [place] [id number] Albumin/Globulin mass ratio 2.5 {ratio} Abnormal 1.2-2.2 [facility] Work Phone: Comment on above: PATIENT NOT FASTINGP ERFORMED BY: AFRICA [facility] Xfwodm7573 [address] [employer] [facility] & Cloud Servicesblin [place] [id number] ALP [Catalytic activity/Vol] 44 U/L Normal 39-117 [facility]; [facility] Internal Medicine Work Phone: ALP enzyme act/vol 44 [iU]/L Normal 39-117 [facility] Internal Medicine Work Phone: Comment on above: PATIENT NOT FASTINGP ERFORMED BY: CB [facility] Wuoecn2893 [address] RoadDublin [place] [id number] ALT [Catalytic activity/Vol] 59 U/L Abnormal 0-44 [facility]; [facility] Internal Medicine Work Phone: ALT enzyme act/vol 59 [iU]/L Abnormal 0-44 [facility] Internal Medicine Work Phone: Comment on above: PATIENT NOT FASTINGP ERFORMED BY: CB [facility] Kjzami9962 [address] RoadDublin [place] [id number] AST [Catalytic activity/Vol] 35 U/L Normal 0-40 [facility]; [facility] Internal Medicine Work Phone: AST enzyme act/vol 35 [iU]/L Normal 0-40 [facility] Internal Medicine Work Phone: Comment on above: PATIENT NOT FASTINGP ERFORMED BY: CB [facility] Tccfkp9712 [address] RoadDublin [place] [id number] Bilirubin mass conc 0.6 mg/dL Normal 0.0-1.2 Compr [facility] Internal Medicine Work Phone: Comment on above: PATIENT NOT FASTINGP ERFORMED BY: CB [facility] Arpsxb9661 [address] RoadDublin [place] [id number] Calcium mass conc 9.7 mg/dL Normal 8.7-10.2 Compreh [facility] Internal Medicine Work Phone: Comment on above: PATIENT NOT FASTINGP ERFORMED BY: CB [facility] Dlfwfu3079 [address] RoadDublin [place] [id number] Chloride molar conc 100 mmol/L Normal 96-106 Compr ensive Internal Medicine Work Phone: Comment on above: PATIENT NOT FASTINGP ERFORMED BY: CB [facility] Vlfbpd6185 [address] RoadDublin [place] [id number] CO2 molar conc 22 mmol/L Normal 18-29 Comprehens chalo Internal Medicine Work Phone: Comment on above: PATIENT NOT FASTINGP ERFORMED BY: AFRICA [facility] Epkraj6392 [address] RoadDublin [place] [id number] Creatinine mass conc 0.83 mg/dL Normal 0.76-1.27 Comp rehensive Internal Medicine Work Phone: Comment on above: PATIENT NOT FASTINGP ERFORMED BY: CB [facility] Onuupx9040 [address] RoadDublin [place] [id number] GFR/1.73 sq M predicted among blacks CKD-EPI vol rate/area (S/P/Bld) 119 mL/min/1.73 Normal [facility] Work Phone: Comment on above: PATIENT NOT FASTINGP ERFORMED BY: AFRICA [facility] Nmyqim3087 [address] RoadDublin [place] [id number] GFR/1.73 sq M predicted among non-blacks CKD-EPI vol rate/area (S/P/Bld) 103 mL/min/1.73 Normal Comprehensiv e Internal Medicine Work Phone: Comment on above: PATIENT NOT FASTINGP ERFORMED BY: AFRICA [facility] Cdpmwi2425 [address] RoadDublin [place] [id number] Globulin mass conc (S) 2.0 g/dL Normal 1.5-4.5 Co [facility] servicesehensive Internal Medicine Work Phone: Comment on above: PATIENT NOT FASTINGP ERFORMED BY: AFRICA [facility] Zbkqqq3304 [address] RoadDublin [place] [id number] Glucose mass conc 95 mg/dL Normal 65-99 Compreh ensive Internal Medicine Work Phone: Comment on above: PATIENT NOT FASTINGP ERFORMED BY: AFRICA [facility] Bprkeq4818 [address] RoadDublin [place] [id number] Potassium molar conc 4.4 mmol/L Normal 3.5-5.2 Comp rehensive Internal Medicine Work Phone: Comment on above: PATIENT NOT FASTINGP ERFORMED BY: AFRICA [facility] Xoomtm4622 [address] RoadDublin [place] [id number] Protein mass conc 6.9 g/dL Normal 6.0-8.5 Compreh ensive Internal Medicine Work Phone: Comment on above: PATIENT NOT FASTINGP ERFORMED BY: AFRICA Ollie Tello[address] [facility] [place] [id number] Sodium molar conc 141 mmol/L Normal 134-144 Compreh ensive Internal Medicine Work Phone: Comment on above: PATIENT NOT FASTINGP ERFORMED BY: AFRICA LabRupinder TobarWolxjz[address] [facility] [id number] Urea nitrogen mass conc 16 mg/dL Normal 6-24 [facility] Work Phone: Comment on above: PATIENT NOT FASTINGP ERFORMED BY: AFRICA LabRupinder Tello[address] [facility] [id number] Urea nitrogen/Creatinine mass ratio 19 mg/mg Normal 9-20 [facility] Work Phone: Comment on above: PATIENT NOT FASTINGP ERFORMED BY: AFRICA Hilario Mfhaoy4005 [facility] [id number] RHEUMATOID FACTOR-QUANT ([id number])Ordered By: Activity Specialist on 12-21-2016 Rheumatoid factor Qn [IU]/mL Normal 0.0-13.9 Comp rehensive Internal Medicine Work Phone: Comment on above: PATIENT NOT FASTINGP ERFORMED BY: AFRICA Hilariorp Hxnzis0218 [address] [facility] [id number] Rheumatoid factor Qn [IU]/mL Normal 0.0-13.9 Comp rehensive Internal Medicine; [facility] Work Phone: SED RATE ERYTHROCYTE ([id number]) Ordered By: Activity Specialist on 12-21-2016 ESR Velocity (Bld) 2 mm/h Normal 0-30 Compre hensive Internal Medicine Work Phone: Comment on above: PATIENT NOT FASTINGP ERFORMED BY: AFRICA [facility] Dwbcma[address] [facility] [id number] Sputum Culture ([id number])Ordere d By: Activity Specialist on 12-21-2016 Bacteria identified Cx Nom (Sput) Final report Normal [facility] Work Phone: Comment on above: The Directory of Ser vices listing for this report is LowerRespiratory Culture, test number 130346. This title and test codenumber are being discontinued effective 2016. For sputumculture in the future, use the Directory of Services listing GramStain Evaluation With Sputum Culture Reflex, test number 010780.For culture of lower respiratory specimens other than expectoratedsputum in the future, [facility] will offer Lower Respiratory Culture,Other than Expectorated Sputum, test number 694879. PATIENT NOT FASTINGP ERFORMED BY: [facility] Fjvvcj7395 Barrios RoadDublin [place] [id number] Information: SRC:SP Bacteria identified Cx Nom (Unsp spec) RRF Normal [facility] Work Phone: Comment on above: Routine respiratory chandra PATIENT NOT FASTINGP ERFORMED BY: [facility] Cezrca1370 [address] RoadDublin [place] [id number] Information: SRC:SP TSH ([id number])Ordered By: Lazaro m Staff Electronic Warfare Officer on 12-21-2016 Thyrotropin Qn 1.690 {uIU/mL} Normal 0.450-4.50 0 [facility] Work Phone: Comment on above: PATIENT NOT FASTINGP ERFORMED BY: [facility] Delyyu2524 [address] RoadDublin [place] [id number] VITAMIN B-12 (CYANOCOBALAMIN ) ([id number])Ordered By: Activity Specialist on 12-21-2016 Cobalamin (Vitamin B12) mass conc 525 pg/mL Normal 211-946 [facility] Work Phone: Comment on above: PATIENT NOT FASTINGP ERFORMED BY: [facility] Fftrxi8872 [address] RoadDublin [place] [id number] T3, FREE (TRIDOTHYRONINE) (4 3100)Ordered By: Activity Specialist on 11-03-2016 T3 free mass conc 3.7 pg/mL Normal 2.0-4.4 Compreh ensive Internal Medicine Work Phone: Comment on above: PATIENT NOT FASTINGP ERFORMED BY: [facility] Oelajc0353 [address] RoadDublin [place] [id number] T4, FREE (THYROXINE) ([id number]) Ordered By: Activity Specialist on 11-03-2016 T4 free mass conc 1.07 ng/dL Normal 0.82-1.77 Compreh ensive Internal Medicine Work Phone: Comment on above: PATIENT NOT FASTINGP ERFORMED BY: [facility] Xduidt8076 [facility] [id number] TSH ([id number])Ordered By: Lazaro m Staff Electronic Warfare Officer on 11-03-2016 Thyrotropin Qn 3.010 {uIU/mL} Normal 0.450-4.50 0 [facility] Work Phone: Comment on above: PATIENT NOT FASTINGP ERFORMED BY: [facility] Ceqxez1803 [facility] [id number] TSH (THYROID STIMULATING HOR KIKO) ([id number])Ordered By: Activity Specialist on 07-09-2016 Thyrotropin Qn 6.800 {uIU/mL} Abnormal 0.450-4.50 0 [facility] Work Phone: Comment on above: PATIENT NOT FASTINGP ERFORMED BY: [facility] Djcicy2220 [facility] [id number] Thyroid Stim Hormone (TSH)Or dered By: Activity Specialist on 06-28-2016 Thyrotropin Qn 6.08 {uIU/mL} Abnormal 0.358-3.74 Compreh ensive Internal Medicine Work Phone: Comment on above: [facility] [address] [place], [place], [id number] Troponin-IOrdered By: Activity Specialist on 06-28-2016 Troponin I.cardiac mass conc ng/mL Normal [facility] Work Phone: Comment on above: TROPONIN-I EXPECTED VALUES <0.05 NEGATIVE 0.06 - 0.59 AT RISK OF AL > OR = 0.60 SUGGEST AL Comments: Should be drawn 2H after initial Troponin obtained'TROP' Serial specimen #1, #2, #3, or #4: [address] [place] [address] [address] [place], [place], [address] Rapid Flu (35238 x 2)Ordered By: Briana Green on 06-01-2016 FLUAV Ag IA Ql (Throat) neg a/b Normal [facility] Work Phone: CALCIFEDIOL ([id number])Ordered B y: Activity Specialist on 03-31-2016 25-Hydroxyvitamin D2+25-Hydroxyvitamin D3 mass conc 33.4 ng/mL Normal 30.0-100.0 [facility] Work Phone: Comment on above: Vitamin D deficiency has been defined by the [place] ofMedicine and an Endocrine Society practice guideline as alevel of serum 25-OH vitamin D less than 20 ng/mL (1,2).The Endocrine Society went on to further define vitamin Dinsufficiency as a level between 21 and 29 ng/mL (2).1. IOM ([place] of Medicine). 2010. Dietary reference intakes for calcium and D. [place]: The National Academies Press.2. Teetee MF, Saman [place], Moe ZAMORA, et al. Evaluation, treatment, and prevention of vitamin D deficiency: an Endocrine Society clinical practice guideline. JCEM. 2010; 96(7):1911-30. PATIENT WAS FASTINGP ERFORMED BY: [facility]Flag[facility] [id number] CBC, PLATELETS & AUT DIFF ([id number] 9710)Ordered By: Activity Specialist on 03-31-2016 Basophils #/vol (Bld) 0.1 {x10E3/uL} Normal 0.0-0.2 [facility] Work Phone: Comment on above: PATIENT WAS FASTINGP ERFORMED BY: [employer]70 MeepsFormer[facility] [id number] Basophils (Bld) [#/Vol] 0.1 10*3/uL Normal 0.0-0.2 [facility]; [facility] Work Phone: Basophils/100 WBC (Bld) 1 % Normal [facility] Work Phone: Comment on above: PATIENT WAS FASTINGP ERFORMED BY: [facility] [id number] Eosinophils #/vol (Bld) 0.2 {x10E3/uL} Normal 0.0-0.4 [facility] Work Phone: Comment on above: PATIENT WAS FASTINGP ERFORMED BY: AFRICA Hilario Gkyikb5341 [facility] [id number] Eosinophils (Bld) [#/Vol] 0.2 10*3/uL Normal 0.0-0.4 [facility]; [facility] Work Phone: Eosinophils/100 WBC (Bld) 3 % Normal [facility] Work Phone: Comment on above: PATIENT WAS FASTINGP ERFORMED BY: AFRICA AkiokSaint [facility] Tofquc8111 [facility] [id number] Erythrocyte distribution width Ratio (RBC) 13.9 % Normal 12.3-15.4 [facility] Work Phone: Comment on above: PATIENT WAS FASTINGP ERFORMED BY: AFRICA AkikoSaint [facility] Grhrow7831 [facility] [id number] Hematocrit Volume Fraction (Bld) 46.6 % Normal 37.5-51.0 [facility] Work Phone: Comment on above: PATIENT WAS FASTINGP ERFORMED BY: AFRICA Hilario Gnevsv7102 [facility] [id number] Hemoglobin mass conc (Bld) 16.4 g/dL Normal 12.6-17.7 [facility] Work Phone: Comment on above: PATIENT WAS FASTINGP ERFORMED BY: LabMelissa Ville 1448770 [facility] [id number] Immature granulocytes #/vol (Bld) 0.0 {x10E3/uL} Normal 0.0-0.1 [facility] Work Phone: Comment on above: PATIENT WAS FASTINGP ERFORMED BY: LabMary [facility]6370 [facility] [id number] Immature granulocytes (Bld) [#/Vol] 0.0 10*3/uL Normal 0.0-0.1 [facility]; [facility] Work Phone: Immature granulocytes/100 WBC (Bld) 0 % Normal [facility] Work Phone: Comment on above: PATIENT WAS FASTINGP ERFORMED BY: AFRICA Tello6370 [facility] [id number] Lymphocytes #/vol (Bld) 2.0 {x10E3/uL} Normal 0.7-3.1 [facility] Work Phone: Comment on above: PATIENT WAS FASTINGP ERFORMED BY: AFRICA Tello6370 [facility] [id number] Lymphocytes (Bld) [#/Vol] 2.0 10*3/uL Normal 0.7-3.1 [facility]; [facility] Work Phone: Lymphocytes/100 WBC (Bld) 32 % Normal [facility] Work Phone: Comment on above: PATIENT WAS FASTINGP ERFORMED BY: AFRICA Tello6370 [facility] [id number] MCH Entitic mass (RBC) 32.1 pg Normal 26.6-33.0 [facility] Internal Medicine Work Phone: Comment on above: PATIENT WAS FASTINGP ERFORMED BY: AFRICA Tobarlin6370 [facility] [id number] MCHC mass conc (RBC) 35.2 g/dL Normal 31.5-35.7 [facility] Internal Medicine Work Phone: Comment on above: PATIENT WAS FASTINGP ERFORMED BY: AFRICA Tobarlin6370 [facility] [id number] MCV Entitic volume (RBC) 91 fL Normal 79-97 [facility] Work Phone: Comment on above: PATIENT WAS FASTINGP ERFORMED BY: AFRICA Tobarlin6370 [facility] [id number] Monocytes #/vol (Bld) 0.5 {x10E3/uL} Normal 0.1-0.9 [facility] Work Phone: Comment on above: PATIENT WAS FASTINGP ERFORMED BY: AFRICA Tobarlin6370 [facility] [id number] Monocytes (Bld) [#/Vol] 0.5 10*3/uL Normal 0.1-0.9 [facility]; [facility] Work Phone: Monocytes/100 WBC (Bld) 8 % Normal [facility] Work Phone: Comment on above: PATIENT WAS FASTINGP ERFORMED BY: AFRICA Rich Bieslx8090 [facility] [id number] Neutrophils #/vol (Bld) 3.5 {x10E3/uL} Normal 1.4-7.0 [facility] Work Phone: Comment on above: PATIENT WAS FASTINGP ERFORMED BY: AFRICA Tello6370 [facility] [id number] Neutrophils (Bld) [#/Vol] 3.5 10*3/uL Normal 1.4-7.0 [facility]; [facility] Work Phone: Neutrophils/100 WBC (Bld) 56 % Normal [facility] Work Phone: Comment on above: PATIENT WAS FASTINGP ERFORMED BY: AFRICA Tello6370 [facility] [id number] Platelets #/vol (Bld) 227 {x10E3/uL} Normal 150-379 [facility] Work Phone: Comment on above: PATIENT WAS FASTINGP ERFORMED BY: AkikoSaint [facility] Rcsnfl8264 [facility] [id number] Platelets (Bld) [#/Vol] 227 10*3/uL Normal 150-379 [facility]; [facility] Work Phone: RBC #/vol (Bld) 5.11 {x10E6/uL} Normal 4.14-5.80 [facility] Internal Medicine Work Phone: Comment on above: PATIENT WAS FASTINGP ERFORMED BY: [facility] Btisfc6988 [facility] [id number] RBC (Bld) [#/Vol] 5.11 10*6/uL Normal 4.14-5.80 Compr ensive Internal Medicine; [facility] Work Phone: WBC #/vol (Bld) 6.2 {x10E3/uL} Normal 3.4-10.8 Compr ensive Internal Medicine Work Phone: Comment on above: PATIENT WAS FASTINGP ERFORMED BY: AFRICA [facility] Bjesqx0275 [facility] [id number] WBC (Bld) [#/Vol] 6.2 10*3/uL Normal 3.4-10.[address] [facility] Internal Medicine; [facility] Work Phone: HGB A1C (34561)Ordered By: S ystem Staff Electronic Warfare Officer on 03-31-2016 Hemoglobin A1c/Hemoglobin.total mass fraction (Bld) 5.7 % Abnormal 4.8-5.6 Comprehensiv e Internal Medicine Work Phone: Comment on above: . Pre-diabetes: 5.7 - 6.4 Diabetes: >6.4 Glycemic control for adults with diabetes: <7.0 PATIENT WAS FASTINGP ERFORMED BY: AFRICA LabMoleculinrp Tskzdt5146 [facility] [id number] LIPID PANEL ([id number])Ordered B y: Activity Specialist on 03-31-2016 Cholesterol in HDL mass conc 53 mg/dL Normal [facility] Work Phone: Comment on above: 02/24; PATIENT WAS F ASTINGPERFORMED BY: AFRICA LabMoleculinrp Bndnzr8882 [facility] [id number] Cholesterol in LDL mass conc 100 mg/dL Abnormal 0-99 [facility] Work Phone: Comment on above: 02/24; PATIENT WAS F ASTINGPERFORMED BY: AFRICA [facility] Pnekij4883 [facility] [id number] Cholesterol in LDL/Cholesterol in HDL mass ratio 1.9 {ratio_units} Normal 0.0-3.6 [facility] Work Phone: Comment on above: LDL/HDL Ratio Men Wo men 1/2 Avg.Risk 1.0 1.5 Avg.Risk 3.6 3.2 2X Avg.Risk 6.2 5.0 3X Avg.Risk 8.0 6.1 02/24; PATIENT WAS F ASTINGPERFORMED BY: AFRICA LabRupinder Gwdtsc7639 [address] Roadblin [place] [id number] Cholesterol in VLDL mass conc 29 mg/dL Normal 5-40 [facility] Work Phone: Comment on above: 02/24; PATIENT WAS F ASTINGPERFORMED BY: AFRICA [facility] Oqawnn9207 [address] Roadblin [place] [id number] Cholesterol mass conc 182 mg/dL Normal 100-199 Com prehensive Internal Medicine Work Phone: Comment on above: 02/24; PATIENT WAS F ASTINGPERFORMED BY: AFRICA LabRupinder Evcjen2441 [address] Roadblin [place] [id number] Triglyceride mass conc 144 mg/dL Normal 0-149 Co [facility] servicesehensive Internal Medicine Work Phone: Comment on above: 02/24; PATIENT WAS F ASTINGPERFORMED BY: AFRICA LabRayrp Fkqtaj0380 [address] [facility] [place] [id number] METABOLIC PANEL, COMPREHENSI VE ([id number])Ordered By: Activity Specialist on 03-31-2016 Albumin mass conc 4.9 g/dL Normal 3.5-5.5 Compreh ensive Internal Medicine Work Phone: Comment on above: PATIENT WAS FASTINGP ERFORMED BY: AFRICA LabRupinder Vywwzy6043 [address] [facility] [place] [id number] Albumin/Globulin mass ratio 2.9 {ratio} Abnormal 1.1-2.5 [facility] Work Phone: Comment on above: PATIENT WAS FASTINGP ERFORMED BY: AFRICA [facility] Dqndny9140 [address] [facility] [place] [id number] ALP [Catalytic activity/Vol] 40 U/L Normal 39-117 [facility]; [facility] Work Phone: ALP enzyme act/vol 40 [iU]/L Normal 39-117 Compre [facility] Internal [facility] Work Phone: Comment on above: PATIENT WAS FASTINGP ERFORMED BY: AFRICA [facility] Felblk4738 [address] RoadDublin [place] [id number] ALT [Catalytic activity/Vol] 65 U/L Abnormal 0-44 [facility]; [facility] Internal Medicine Work Phone: ALT enzyme act/vol 65 [iU]/L Abnormal 0-44 [facility] Internal Medicine Work Phone: Comment on above: PATIENT WAS FASTINGP ERFORMED BY: AFRICA [facility] Udpxhl4911 [address] RoadDublin [place] [id number] AST [Catalytic activity/Vol] 37 U/L Normal 0-40 [facility]; [facility] Internal Medicine Work Phone: AST enzyme act/vol 37 [iU]/L Normal 0-40 [facility] Internal Medicine Work Phone: Comment on above: PATIENT WAS FASTINGP ERFORMED BY: AFRICA [facility] Xhxbtd5591 [address] RoadDublin [place] [id number] Bilirubin mass conc 0.5 mg/dL Normal 0.0-1.2 Compr ensive Internal Medicine Work Phone: Comment on above: PATIENT WAS FASTINGP ERFORMED BY: AFRICA [facility] Rfyasm4304 [address] RoadDublin [place] [id number] Calcium mass conc 9.9 mg/dL Normal 8.7-10.2 Compreh [facility] centerive Internal Medicine Work Phone: Comment on above: PATIENT WAS FASTINGP ERFORMED BY: AFRICA [facility] Jmsnvb0685 [address] RoadDublin [place] [id number] Chloride molar conc 97 mmol/L Normal 96-106 Compr ensive Internal Medicine Work Phone: Comment on above: Please note refere nce interval change PATIENT WAS FASTINGP ERFORMED BY: AFRICA [facility] Chwnfy4316 [address] RoadDublin [place] [id number] CO2 molar conc 23 mmol/L Normal 18-29 Comprehens chalo Internal Medicine Work Phone: Comment on above: PATIENT WAS FASTINGP ERFORMED BY: AFRICA [facility] Xttbcw4390 [address] RoadDublin [place] [id number] Creatinine mass conc 0.85 mg/dL Normal 0.76-1.27 Comp rehensive Internal Medicine Work Phone: Comment on above: PATIENT WAS FASTINGP ERFORMED BY: AFRICA Ollie Tello6370 [facility] [id number] GFR/1.73 sq M predicted among blacks CKD-EPI vol rate/area (S/P/Bld) 118 mL/min/1.73 Normal [facility] Work Phone: Comment on above: PATIENT WAS FASTINGP ERFORMED BY: AFRICA Hilario Ybnspd2073 [facility] [id number] GFR/1.73 sq M predicted among non-blacks CKD-EPI vol rate/area (S/P/Bld) 102 mL/min/1.73 Normal Comprehensiv e Internal Medicine Work Phone: Comment on above: PATIENT WAS FASTINGP ERFORMED BY: AFRICA Tobarlin6370 [facility] [id number] Globulin mass conc (S) 1.7 g/dL Normal 1.5-4.5 Co [facility] servicesehensive Internal Medicine Work Phone: Comment on above: PATIENT WAS FASTINGP ERFORMED BY: AFRICA AkikoRupinder TobarFkehcc3372 [facility] [id number] Glucose mass conc 91 mg/dL Normal 65-99 Compreh ensive Internal Medicine Work Phone: Comment on above: PATIENT WAS FASTINGP ERFORMED BY: AFRICA AkikoRay Nisfsl1822 [facility] [id number] Potassium molar conc 4.8 mmol/L Normal 3.5-5.2 Comp rehensive Internal Medicine Work Phone: Comment on above: PATIENT WAS FASTINGP ERFORMED BY: AFRICA LabRupinder Lzdfdj9283 [facility] [id number] Protein mass conc 6.6 g/dL Normal 6.0-8.5 Compreh ensive Internal Medicine Work Phone: Comment on above: PATIENT WAS FASTINGP ERFORMED BY: AFRICA LabRay Novtxt1024 [facility] [id number] Sodium molar conc 138 mmol/L Normal 134-144 Compreh ensive Internal Medicine Work Phone: Comment on above: Please note refere nce interval change PATIENT WAS FASTINGP ERFORMED BY: [employer] Ssgkwd0299 [facility] [id number] Urea nitrogen mass conc 16 mg/dL Normal 6-24 [facility] Work Phone: Comment on above: PATIENT WAS FASTINGP ERFORMED BY: [employer] Pzdwna8946 [facility] [id number] Urea nitrogen/Creatinine mass ratio 19 mg/mg Normal 9-20 [facility] Work Phone: Comment on above: PATIENT WAS FASTINGP ERFORMED BY: [employer] Apzicd5354 [facility] [id number] PSA (PROSTATE SPECIFIC ANTIG EN) (V76.44)Ordered By: Activity Specialist on 03-31-2016 Prostate specific Ag mass conc 0.4 ng/mL Normal 0.0-4.0 [facility] Work Phone: Comment on above: Tube2Tone ECLIA methodol ogy. .According to the [place] [employer], Serum PSA shoulddecrease and remain at undetectable levels after radicalprostatectomy. The AUA defines biochemical recurrence as an initialPSA value 0.2 ng/mL or greater followed by a subsequent confirmatoryPSA value 0.2 ng/mL or greater.Values obtained with different assay methods or kits cannot be usedinterchangeably. Results cannot be interpreted as absolute evidenceof the presence or absence of malignant disease. PATIENT WAS FASTINGP ERFORMED BY: [employer] Oxfebh0569 [facility] [id number] TSH (THYROID STIMULATING HOR KIKO) ([id number])Ordered By: Activity Specialist on 03-31-2016 Thyrotropin Qn 3.050 {uIU/mL} Normal 0.450-4.50 0 [facility] Work Phone: Comment on above: PATIENT WAS FASTINGP ERFORMED BY: FlipboardJFK Medical CenterAfflfe8752 [facility] [id number] AmylaseOrdered By: Bryan youssef on 12-09-2015 Amylase enzyme act/vol 23 U/L Abnormal 25-115 Co [facility] Internal Medicine Work Phone: Comment on above: 'TROP' Serial specim en #1, #2, #3, or #4: [address] [place] [address] [place], [place], [id number] CBC W/Diff, AutomatedOrdered By: Activity Specialist on 12-09-2015 Absolute Neut 3.8 {X10_3/uL} Normal 2.0-7.7 Compreh ensive Internal Medicine Work Phone: Comment on above: [facility] [address] [place], [place], [phone] Basophils/100 WBC (Bld) 0.6 % Normal 0-1 [facility] Work Phone: Comment on above: [facility] [address] [place], [place], [phone](125) Eosinophils/100 WBC (Bld) 4.0 % Normal 0-5 [facility] Work Phone: Comment on above: [facility] [address] [place], [place], [phone] Erythrocyte distribution width Ratio (RBC) 13.2 % Normal 11.6-14.6 [facility] Work Phone: Comment on above: [facility] [address] [place], [place], [address] Hematocrit Volume Fraction (Bld) 47.9 % Normal 40-54 [facility] Work Phone: Comment on above: [facility] [address] [place], [place], [phone] Hemoglobin mass conc (Bld) 16.6 g/dL Abnormal 13.0-16.5 [facility] Work Phone: Comment on above: [facility] [address] [place], [place], [phone] IM GRAN % 0.200 % Normal 0.0-0.9 [facility] Work Phone: Comment on above: IG% - Immature Granu locytes (promyelocytes, myelocytes andmetamyelocytes) > 1% indicates that a LEFT SHIFT is Present. [facility] [address] [place], [place], [phone](979) Lymphocytes #/vol (Bld) 1.78 {X10_3/ul} Normal 0.83-4.51 [facility] Work Phone: Comment on above: [facility] [address] [place], [address] Lymphocytes/100 WBC (Bld) 27.5 % Normal 19-41 [facility] Work Phone: Comment on above: [facility] [address] [place], [address] MCH Entitic mass (RBC) 31.9 pg Normal 27.0-32.0 Co [facility] centerensive Internal Medicine Work Phone: Comment on above: [facility] [address] [place], [address] MCHC mass conc (RBC) 34.7 {g/gl} Normal 32-36 [facility] prehensive Internal Medicine Work Phone: Comment on above: [facility] [address] [place], [address] MCV Entitic volume (RBC) 92.1 fL Normal 80-94 [facility] Work Phone: Comment on above: [facility] [address] [place], [address] Monocytes/100 WBC (Bld) 8.8 % Normal 0-10 [facility] Work Phone: Comment on above: [facility] [address] [place], [address] Neutrophils/100 WBC (Bld) 58.9 % Normal 47-70 [facility] Work Phone: Comment on above: [facility] [address] [place], [address] Platelet mean volume Entitic volume (Bld) 9.5 fL Normal 6.2-12.0 Comprehensi ve Internal Medicine Work Phone: Comment on above: [facility] [address] [place], [address] Platelets #/vol (Bld) 210 10*3/uL Normal 150-450 [facility] Work Phone: Comment on above: [facility] [address] [place], [address] RBC #/vol (Bld) 5.20 {M/mm3} Normal 4.6-6.2 Compreh ensive Internal Medicine Work Phone: Comment on above: [facility] [address] [place], [address] RDW SD 44.8 fL Abnormal 35.1-43.9 [facility] Work Phone: Comment on above: [facility] [address] [place], [address] WBC #/vol (Bld) 6.5 10*3/uL Normal 4.4-11.0 Comprehe nsive Internal Medicine Work Phone: Comment on above: [facility] [address] [place], [address] CBC W/Diff, Automated 1.78 {X10_3/ul} Normal 0.83-4.51 [facility] Work Phone: Comment on above: [facility] [address] [place], [address] CBC W/Diff, Automated 6.5 K/mm3 Normal 4.4-11.0 Com prehensive Internal Medicine Work Phone: Comment on above: [facility] [address] [place], [address] CBC W/Diff, Automated 5.20 {M/mm3} Normal 4.6-6.2 C [facility] Internal Medicine Work Phone: Comment on above: [facility] [address] [place], [address] CBC W/Diff, Automated 3.8 {X10_3/uL} Normal 2.0-7.7 [facility] Work Phone: Comment on above: [facility] [address] [place], [address] CBC W/Diff, Automated 0.200 % Normal 0.0-0.9 [facility] prehensive Internal Medicine Work Phone: Comment on above: IG% - Immature Granu locytes (promyelocytes, myelocytes andmetamyelocytes) > 1% indicates that a LEFT SHIFT is Present. [facility] [address] [place], [address] CBC W/Diff, Automated 0.6 % Normal 0-1 Com prehensive Internal Medicine Work Phone: Comment on above: [facility] [address] [place], [address] CBC W/Diff, Automated 4.0 % Normal 0-5 [facility] prehensive Internal Medicine Work Phone: Comment on above: [facility] [address] [place], [address] CBC W/Diff, Automated 8.8 % Normal 0-10 Com prehensive Internal Medicine Work Phone: Comment on above: [facility] [address] [place], [address] CBC W/Diff, Automated 27.5 % Normal 19-41 Com prehensive Internal Medicine Work Phone: Comment on above: [facility] [address] [place], [place], [id number] CBC W/Diff, Automated 58.9 % Normal 47-70 [facility] prehensive Internal Medicine Work Phone: Comment on above: [facility] [address] [place], [place], [id number] CBC W/Diff, Automated 9.5 fL Normal 6.2-12.0 [facility] prehensive Internal Medicine Work Phone: Comment on above: [facility] [address] [place], [place], [id number] CBC W/Diff, Automated 210 K/mm3 Normal 150-450 [facility] prehensive Internal Medicine Work Phone: Comment on above: [facility] [address] [place], [place], [address] CBC W/Diff, Automated 44.8 fL Abnormal 35.1-43.9 [facility] prehensive Internal Medicine Work Phone: Comment on above: [facility] [address] [place], [address] CBC W/Diff, Automated 13.2 % Normal 11.6-14.6 [facility] prehensive Internal Medicine Work Phone: Comment on above: [facility] [address] [place], [address] CBC W/Diff, Automated 34.7 {g/gl} Normal 32-36 [facility] cent[facility] Work Phone: Comment on above: [facility] [address] [place], [address] CBC W/Diff, Automated 16.6 g/dL Abnormal 13.0-16.5 [facility] prehensive Internal Medicine Work Phone: Comment on above: [facility] [address] [place], [place], [address] CBC W/Diff, Automated 47.9 % Normal 40-54 Com prehensive Internal Medicine Work Phone: Comment on above: [facility] [address] [place], [place], [id number] CBC W/Diff, Automated 31.9 pg Normal 27.0-32.0 Com prehensive Internal Medicine Work Phone: Comment on above: [facility] [address] [place], [place], [phone] CBC W/Diff, Automated 92.1 fL Normal 80-94 [facility] prehensive Internal Medicine Work Phone: Comment on above: [facility] [address] [place], [place], [id number] Comprehensive Metabolic Prof ilOrdered By: Activity Specialist on 12-09-2015 Comprehensive metabolic 2000 panel 7 1 Normal 5-15 Comprehensi ve Internal Medicine Work Phone: Comment on above: 'TROP' Serial specim en #1, #2, #3, or #4: [address] [place] [address] [place], [place], [address] Comprehensive metabolic 2000 panel 28.0 mmol/L Normal 21.0-32.0 Comprehensi ve Internal Medicine Work Phone: Comment on above: 'TROP' Serial specim en #1, #2, #3, or #4: [address] [place] [address] [place], [place], [address] Comprehensive metabolic 2000 panel 102 mmol/L Normal 98-107 Comprehensi ve Internal Medicine Work Phone: Comment on above: 'TROP' Serial specim en #1, #2, #3, or #4: [address] [place] [address] [place], [place], [address] Comprehensive metabolic 2000 panel 4.8 mmol/L Normal 3.5-5.1 Comprehensi ve Internal Medicine Work Phone: Comment on above: 'TROP' Serial specim en #1, #2, #3, or #4: [address] [place] [address] [place], [place], [address] Comprehensive metabolic 2000 panel 0.50 mg/dL Normal 0.20-1.00 Comprehensi ve Internal Medicine Work Phone: Comment on above: 'TROP' Serial specim en #1, #2, #3, or #4: [address] [place] [address] [place], [place], [address] Comprehensive metabolic 2000 panel 137 mmol/L Normal 136-145 Comprehensi ve Internal Medicine Work Phone: Comment on above: 'TROP' Serial specim en #1, #2, #3, or #4: [address] [place] [address] [place], [place], [address] Comprehensive metabolic 2000 panel 35 U/L Normal 15-37 Comprehensi ve Internal Medicine Work Phone: Comment on above: 'TROP' Serial specim en #1, #2, #3, or #4: [address] [place] [address] [place], [address] Comprehensive metabolic 2000 panel 73 mL/min Normal Comprehensi ve Internal Medicine Work Phone: Comment on above: Non- GFR Calc 'TROP' Serial specim en #1, #2, #3, or #4: [address] [place] [address] [place], [place], [address] Comprehensive metabolic 2000 panel 44 U/L Abnormal 50-136 Comprehensi ve Internal Medicine Work Phone: Comment on above: 'TROP' Serial specim en #1, #2, #3, or #4: [address] [place] [address] [place], [place], [address] Comprehensive metabolic 2000 panel 8.7 mg/dL Normal 8.5-10.1 Comprehensi ve Internal Medicine Work Phone: Comment on above: 'TROP' Serial specim en #1, #2, #3, or #4: [address] [place] [address] [place], [place], [address] Comprehensive metabolic 2000 panel 82 U/L Abnormal 12-78 Comprehensi ve Internal Medicine Work Phone: Comment on above: 'TROP' Serial specim en #1, #2, #3, or #4: [address] [place] [address] [place], [place], [address] Comprehensive metabolic 2000 panel 1.14 mg/dL Normal 0.70-1.30 Comprehensi ve Internal Medicine Work Phone: Comment on above: The validity of the calculated GFR AND GFRAA in patients over70 years has not been determined. Clinical correlation isessential. 'TROP' Serial specim en #1, #2, #3, or #4: [address] [place] [address] [place], [place], [address] Comprehensive metabolic 2000 panel 1.7 {RATIO} Normal 0.9-2.4 Comprehensi ve Internal Medicine Work Phone: Comment on above: 'TROP' Serial specim en #1, #2, #3, or #4: [address] [place] [address] [place], [place], [address] Comprehensive metabolic 2000 panel 2.5 g/dL Normal 2.3-3.5 Comprehensi ve Internal Medicine Work Phone: Comment on above: 'TROP' Serial specim en #1, #2, #3, or #4: [address] [place] [address] [place], [place], [address] Comprehensive metabolic 2000 panel 4.2 g/dL Normal 3.4-5.0 Comprehensi ve Internal Medicine Work Phone: Comment on above: 'TROP' Serial specim en #1, #2, #3, or #4: [address] [place] [address] [place], [place], [address] Comprehensive metabolic 2000 panel 92 mg/dL Normal 70-110 Comprehensi ve Internal Medicine Work Phone: Comment on above: 'TROP' Serial specim en #1, #2, #3, or #4: [address] [place] [address] [place], [address] Comprehensive metabolic 2000 panel 6.7 g/dL Normal 6.4-8.2 Comprehensi ve Internal Medicine Work Phone: Comment on above: 'TROP' Serial specim en #1, #2, #3, or #4: [address] [place] [address] [place], [place], [address] Comprehensive metabolic 2000 panel 88 mL/min Normal Comprehensi ve Internal Medicine Work Phone: Comment on above: GFR Calc 'TROP' Serial specim en #1, #2, #3, or #4: [address] [place] [address] [place], [address] Comprehensive metabolic 2000 panel 21.1 {RATIO} Abnormal 10-20 Comprehensi ve Internal Medicine Work Phone: Comment on above: 'TROP' Serial specim en #1, #2, #3, or #4: [address] [place] [address] [place], [address] Comprehensive metabolic 2000 panel 24 mg/dL Abnormal 7-18 Comprehensi ve Internal Medicine Work Phone: Comment on above: 'TROP' Serial specim en #1, #2, #3, or #4: [address] [place] [address] [place], [address] LipaseOrdered By: System Man ager on 12-09-2015 Lipase enzyme act/vol 107 U/L Normal 73-393 Com prehensive Internal Medicine Work Phone: Comment on above: 'TROP' Serial specim en #1, #2, #3, or #4: [address] [place] [address] [address] [place], [address] Thyroid Stim Hormone (TSH)Or dered By: Activity Specialist on 12-09-2015 Thyrotropin Qn 2.47 {uIU/mL} Normal 0.358-3.74 Compreh ensive Internal Medicine Work Phone: Comment on above: 'TROP' Serial specim en #1, #2, #3, or #4: [address] [place] [address] [address] [place], [place], [id number] Troponin-IOrdered By: Activity Specialist on 12-09-2015 Troponin I.cardiac mass conc ng/mL Normal [facility] Work Phone: Comment on above: TROPONIN-I EXPECTED VALUES <0.05 NEGATIVE 0.06 - 0.59 AT RISK OF AL > OR = 0.60 SUGGEST AL 'TROP' Serial specim en #1, #2, #3, or #4: [address] [place] [address] [address] [place], [place], [address] HEPATIC FUNCTION PANEL (8007 6)Ordered By: Activity Specialist on 11-11-2015 Albumin mass conc 4.8 g/dL Normal 3.5-5.5 Compreh ensive Internal Medicine Work Phone: Comment on above: PATIENT WAS FASTINGP ERFORMED BY: [employer]70 [facility] [id number] ALP [Catalytic activity/Vol] 40 U/L Normal 39-117 [facility]; [facility] Work Phone: ALP enzyme act/vol 40 [iU]/L Normal 39-117 [facility] Internal Medicine Work Phone: Comment on above: PATIENT WAS FASTINGP ERFORMED BY: [employer]70 [address] [employer] ServicesFormerly [facility] [id number] ALT [Catalytic activity/Vol] 75 U/L Abnormal 0-44 [facility]; [facility] Work Phone: ALT enzyme act/vol 75 [iU]/L Abnormal 0-[address] [facility] Internal Medicine Work Phone: Comment on above: PATIENT WAS FASTINGP ERFORMED BY: AFRICA [facility] Iklybu8758 [address]rios RoadDublin [place] [id number] AST [Catalytic activity/Vol] 43 U/L Abnormal 0-40 [facility]; [facility] Internal Medicine Work Phone: AST enzyme act/vol 43 [iU]/L Abnormal 0-40 [facility] Internal Medicine Work Phone: Comment on above: PATIENT WAS FASTINGP ERFORMED BY: CB [facility] Fbgahj2698 Barrios RoadDublin [place] [id number] Bilirubin mass conc 0.5 mg/dL Normal 0.0-1.2 [facility] Internal Medicine Work Phone: Comment on above: PATIENT WAS FASTINGP ERFORMED BY: CB [facility] Wcxrwz54[address]rios RoadDublin [place] [id number] Bilirubin.direct mass conc 0.16 mg/dL Normal 0.00-0.40 [facility] Internal Medicine Work Phone: Comment on above: PATIENT WAS FASTINGP ERFORMED BY: CB [facility] Ylzovw4312 [address]rios RoadDublin [place] [id number] Protein mass conc 6.4 g/dL Normal 6.0-8.5 [facility] Internal Medicine Work Phone: Comment on above: PATIENT WAS FASTINGP ERFORMED BY: CB [facility] Kaixkm7971 [address] RoadDublin [place] [id number] Lipid Panel (13542)Ordered B y: Activity Specialist on 11-11-2015 Cholesterol in HDL mass conc 52 mg/dL Normal [facility] Internal Medicine Work Phone: Comment on above: According to ATP-III Guidelines, HDL-C >59 mg/dL is considered anegative risk factor for CHD. PATIENT WAS FASTINGP ERFORMED BY: CB [facility] Zsbqhj[address]rios RoadDublin [place] [id number] Information: [id number] Cholesterol in LDL mass conc 103 mg/dL Abnormal 0-99 [facility] Internal Medicine Work Phone: Comment on above: PATIENT WAS FASTINGP ERFORMED BY: [facility] Peaxtw1836 [facility] [id number] Information: [id number] Cholesterol in LDL/Cholesterol in HDL mass ratio 2.0 {ratio_units} Normal 0.0-3.6 [facility] Work Phone: Comment on above: LDL/HDL Ratio Men Wo men 1/2 Avg.Risk 1.0 1.5 Avg.Risk 3.6 3.2 2X Avg.Risk 6.2 5.0 3X Avg.Risk 8.0 6.1 PATIENT WAS FASTINGP ERFORMED BY: [facility] Ngqlwg5559 [facility] [id number] Information: [id number] Cholesterol in VLDL mass conc 44 mg/dL Abnormal 5-40 [facility] Internal Medicine Work Phone: Comment on above: PATIENT WAS FASTINGP ERFORMED BY: [facility] Oxlfsy2708 [facility] [id number] Information: [id number] Cholesterol mass conc 199 mg/dL Normal 100-199 Com prehensive Internal Medicine Work Phone: Comment on above: PATIENT WAS FASTINGP ERFORMED BY: [facility] Upgiwe4081 [facility] [id number] Information: [id number] Triglyceride mass conc 219 mg/dL Abnormal 0-149 [facility] services[facility] Internal Medicine Work Phone: Comment on above: PATIENT WAS FASTINGP ERFORMED BY: [facility] Nodiib5668 [facility] [id number] Information: [id number] Urinalysis, Office ([id number])Or dered By: Barbara Clifford on 06-30-2015 Bilirubin Ql (U) Negative Normal Comprehe nsive Internal Medicine Work Phone: Bilirubin Ql (U) Negative Normal Comprehe nsive Internal Medicine; [facility] Work Phone: Glucose Test strip (U) [Mass/Vol] Negative Normal [facility]; [facility] Work Phone: Glucose Test strip mass conc (U) Negative Normal [facility] Work Phone: Hemoglobin Ql (U) Hemolyzed Trace Normal [facility] Internal Medicine Work Phone: Ketones Ql (U) Negative Normal Comprehens chalo Internal Medicine Work Phone: Ketones Ql (U) Negative Normal Comprehens chalo Internal Medicine; [facility] Work Phone: Leukocyte esterase Test strip Ql (U) Negative Normal [facility] Work Phone: Leukocyte esterase Test strip Ql (U) Negative Normal [facility]; [facility] Work Phone: Nitrite Ql (U) Negative Normal Comprehens chalo Internal Medicine Work Phone: Nitrite Ql (U) Negative Normal Comprehens chalo Internal Medicine; [facility] Work Phone: pH (U) 7 [pH] Normal [facility] Work Phone: Protein Ql (U) Negative Normal Comprehens chalo Internal Medicine Work Phone: Protein Ql (U) Negative Normal Comprehens chalo Internal Medicine; [facility] Work Phone: Specific gravity Relative Density (U) 1.015 1 Normal Comprehensi Internal Medicine Work Phone: Urobilinogen mass/time (24H U) Normal Normal [facility] Work Phone: CBC W/AUTO DIFF WBC ([id number])O rdered By: Activity Specialist on 06-13-2015 Basophils #/vol (Bld) 0.1 {x10E3/uL} Normal 0.0-0.2 [facility] Work Phone: Comment on above: PATIENT WAS FASTINGP ERFORMED BY: [facility] Skzsad0914 [facility] [id number] Information: [id number] Basophils (Bld) [#/Vol] 0.1 10*3/uL Normal 0.0-0.2 [facility]; [facility] Work Phone: Basophils/100 WBC (Bld) 1 % Normal [facility] Work Phone: Comment on above: PATIENT WAS FASTINGP ERFORMED BY: [place] 0[address]5470 [facility] [id number] Information: [id number] Eosinophils #/vol (Bld) 0.2 {x10E3/uL} Normal 0.0-0.4 [facility] Work Phone: Comment on above: PATIENT WAS FASTINGP ERFORMED BY: [address] [id number] Information: [id number] Eosinophils (Bld) [#/Vol] 0.2 10*3/uL Normal 0.0-0.4 [facility]; [facility] Work Phone: Eosinophils/100 WBC (Bld) 3 % Normal [facility] Work Phone: Comment on above: PATIENT WAS FASTINGP ERFORMED BY: [address] [id number] Information: [id number] Erythrocyte distribution width Ratio (RBC) 13.4 % Normal 12.3-15.4 [facility] Work Phone: Comment on above: PATIENT WAS FASTINGP ERFORMED BY: [address] [id number] Information: [id number] Hematocrit Volume Fraction (Bld) 45.9 % Normal 37.5-51.0 [facility] Work Phone: Comment on above: PATIENT WAS FASTINGP ERFORMED BY: [place] 0285470 [facility] [id number] Information: [id number] Hemoglobin mass conc (Bld) 16.0 g/dL Normal 12.6-17.7 [facility] Work Phone: Comment on above: PATIENT WAS FASTINGP ERFORMED BY: [place] 0285470 [facility] [id number] Information: [id number] Immature granulocytes #/vol (Bld) 0.0 {x10E3/uL} Normal 0.0-0.1 [facility] Work Phone: Comment on above: PATIENT WAS FASTINGP ERFORMED BY: AFRICA [place] [id number] [facility] [id number] Information: [id number] Immature granulocytes (Bld) [#/Vol] 0.0 10*3/uL Normal 0.0-0.1 [facility]; [facility] Work Phone: Immature granulocytes/100 WBC (Bld) 0 % Normal [facility] Work Phone: Comment on above: PATIENT WAS FASTINGP ERFORMED BY: AFRICA [place] [id number] [facility] [id number] Information: [id number] Lymphocytes #/vol (Bld) 2.2 {x10E3/uL} Normal 0.7-3.1 [facility] Work Phone: Comment on above: PATIENT WAS FASTINGP ERFORMED BY: AFRICA [facility]6370 [facility] [id number] Information: [id number] Lymphocytes (Bld) [#/Vol] 2.2 10*3/uL Normal 0.7-3.1 [facility]; [facility] Work Phone: Lymphocytes/100 WBC (Bld) 31 % Normal [facility] Work Phone: Comment on above: PATIENT WAS FASTINGP ERFORMED BY: [facility]6370 [facility] [id number] Information: [id number] MCH Entitic mass (RBC) 31.7 pg Normal 26.6-33.0 Co [facility] Internal Medicine Work Phone: Comment on above: PATIENT WAS FASTINGP ERFORMED BY: [facility]6370 [facility] [id number] Information: [id number] MCHC mass conc (RBC) 34.9 g/dL Normal 31.5-35.7 [facility] Internal Medicine Work Phone: Comment on above: PATIENT WAS FASTINGP ERFORMED BY: [address] [id number] Information: [id number] MCV Entitic volume (RBC) 91 fL Normal 79-97 [facility] Work Phone: Comment on above: PATIENT WAS FASTINGP ERFORMED BY: [address] [id number] Information: [id number] Monocytes #/vol (Bld) 0.9 {x10E3/uL} Normal 0.1-0.9 [facility] Work Phone: Comment on above: PATIENT WAS FASTINGP ERFORMED BY: [address] [id number] Information: [id number] Monocytes (Bld) [#/Vol] 0.9 10*3/uL Normal 0.1-0.9 [facility]; [facility] Work Phone: Monocytes/100 WBC (Bld) 13 % Normal [facility] Work Phone: Comment on above: PATIENT WAS FASTINGP ERFORMED BY: [address] [id number] Information: [id number] Neutrophils #/vol (Bld) 3.7 {x10E3/uL} Normal 1.4-7.0 [facility] Work Phone: Comment on above: PATIENT WAS FASTINGP ERFORMED BY: [place] 0285470 [facility] [id number] Information: [id number] Neutrophils (Bld) [#/Vol] 3.7 10*3/uL Normal 1.4-7.0 [facility]; [facility] Work Phone: Neutrophils/100 WBC (Bld) 52 % Normal [facility] Work Phone: Comment on above: PATIENT WAS FASTINGP ERFORMED BY: [facility] Exgssi4572 [facility] [id number] Information: [id number] Platelets #/vol (Bld) 223 {x10E3/uL} Normal 150-379 [facility] Work Phone: Comment on above: PATIENT WAS FASTINGP ERFORMED BY: [place] 0285470 [facility] [id number] Information: [id number] Platelets (Bld) [#/Vol] 223 10*3/uL Normal 150-379 [facility]; [facility] Work Phone: RBC #/vol (Bld) 5.04 {x10E6/uL} Normal 4.14-5.[address] [facility] Work Phone: Comment on above: PATIENT WAS FASTINGP ERFORMED BY: [place] 0285470 [facility] [id number] Information: [id number] RBC (Bld) [#/Vol] 5.04 10*6/uL Normal 4.14-5.80 Compr ensive Internal Medicine; [facility] Work Phone: WBC #/vol (Bld) 7.1 {x10E3/uL} Normal 3.4-10.8 Compr ensive Internal Medicine Work Phone: Comment on above: PATIENT WAS FASTINGP ERFORMED BY: [facility]6370 [facility] [id number] Information: [id number] WBC (Bld) [#/Vol] 7.1 10*3/uL Normal 3.4-10.[address] [facility] Internal Medicine; [facility] Work Phone: LIPID PANEL ([id number])Ordered B y: Activity Specialist on 06-13-2015 Cholesterol in HDL mass conc 51 mg/dL Normal [facility] Work Phone: Comment on above: According to ATP-III Guidelines, HDL-C >59 mg/dL is considered anegative risk factor for CHD. PATIENT WAS FASTINGP ERFORMED BY: AFRICA AkikoRupinder Fisxsj4965 [facility] [id number] Cholesterol in LDL mass conc 88 mg/dL Normal 0-99 [facility] Work Phone: Comment on above: PATIENT WAS FASTINGP ERFORMED BY: AFRICA AkikoRupinder TobarEyftnu0641 [facility] [id number] Cholesterol in LDL/Cholesterol in HDL mass ratio 1.7 {ratio_units} Normal 0.0-3.6 [facility] Work Phone: Comment on above: LDL/HDL Ratio Men Wo men 1/2 Avg.Risk 1.0 1.5 Avg.Risk 3.6 3.2 2X Avg.Risk 6.2 5.0 3X Avg.Risk 8.0 6.1 PATIENT WAS FASTINGP ERFORMED BY: AFRICA Levin Poztqy5692 [facility] [id number] Cholesterol in VLDL mass conc 51 mg/dL Abnormal 5-40 [facility] Work Phone: Comment on above: PATIENT WAS FASTINGP ERFORMED BY: AFRICA Levin Mtyqys9225 [facility] [id number] Cholesterol mass conc 190 mg/dL Normal 100-199 Com prehensive Internal Medicine Work Phone: Comment on above: PATIENT WAS FASTINGP ERFORMED BY: AFRICA Tobarlin6370 [facility] [id number] Triglyceride mass conc 253 mg/dL Abnormal 0-149 Co mprehensive Internal Medicine Work Phone: Comment on above: PATIENT WAS FASTINGP ERFORMED BY: AFRICA [facility] HospitalRayJFK [facility] CenterMwakas3093 [facility] [id number] METABOLIC PANEL, COMPREHENSI VE (19757)Ordered By: Activity Specialist on 06-13-2015 Albumin mass conc 4.6 g/dL Normal 3.5-5.5 Compreh ensive Internal Medicine Work Phone: Comment on above: PATIENT WAS FASTINGP ERFORMED BY: AFRICA [facility] Jbgtax6316 [address] RoadDublin [place] [id number] Albumin/Globulin mass ratio 2.3 {ratio} Normal 1.1-2.5 [facility] Internal Medicine Work Phone: Comment on above: PATIENT WAS FASTINGP ERFORMED BY: [facility] Gmvnbw0662 [address]rios RoadDublin [place] [id number] ALP [Catalytic activity/Vol] 41 U/L Normal 39-117 [facility]; [facility] Internal Medicine Work Phone: ALP enzyme act/vol 41 [iU]/L Normal 39-117 [facility] Internal Medicine Work Phone: Comment on above: PATIENT WAS FASTINGP ERFORMED BY: AFRICA [facility] Ilmxjq0385 [address]rios RoadDublin [place] [id number] ALT [Catalytic activity/Vol] 65 U/L Abnormal 0-44 [facility]; [facility] Internal Medicine Work Phone: ALT enzyme act/vol 65 [iU]/L Abnormal 0-44 [facility] Internal Medicine Work Phone: Comment on above: PATIENT WAS FASTINGP ERFORMED BY: [facility] Egnwwc6421 [address] RoadDublin [place] [id number] AST [Catalytic activity/Vol] 36 U/L Normal 0-40 [facility] Internal Medicine; [facility] Internal Medicine Work Phone: AST enzyme act/vol 36 [iU]/L Normal 0-40 [facility] Internal Medicine Work Phone: Comment on above: PATIENT WAS FASTINGP ERFORMED BY: [facility] Edrdyo4062 [address] RoadDublin [place] [id number] Bilirubin mass conc 0.4 mg/dL Normal 0.0-1.2 [facility] Internal Medicine Work Phone: Comment on above: PATIENT WAS FASTINGP ERFORMED BY: AFRICA [facility] Quzktk8222 [address] RoadDublin [place] [id number] Calcium mass conc 9.4 mg/dL Normal 8.7-10.2 Compreh ensive Internal Medicine Work Phone: Comment on above: PATIENT WAS FASTINGP ERFORMED BY: AFRICA [facility] Syyroy5025 [address] RoadDublin [place] [id number] Chloride molar conc 100 mmol/L Normal 97-108 Compr ehensive Internal Medicine Work Phone: Comment on above: PATIENT WAS FASTINGP ERFORMED BY: AFRICA [facility] Fziibs4943 [address] RoadDublin [place] [id number] CO2 molar conc 21 mmol/L Normal 18-29 Comprehens chalo Internal Medicine Work Phone: Comment on above: PATIENT WAS FASTINGP ERFORMED BY: AFRICA [facility] Twofko4203 [address] RoadDublin [place] [id number] Creatinine mass conc 0.89 mg/dL Normal 0.76-1.[address] [facility] Work Phone: Comment on above: PATIENT WAS FASTINGP ERFORMED BY: AFRICA [facility] Zzjwuz6443 [address] RoadPending Sale To [facility] Healthin [place] [id number] GFR/1.73 sq M predicted among blacks CKD-EPI vol rate/area (S/P/Bld) 117 mL/min/1.73 Normal [facility] Work Phone: Comment on above: PATIENT WAS FASTINGP ERFORMED BY: AFRICA [facility] Wsgpzb4877 Bar[address] Roadblin [place] [id number] GFR/1.73 sq M predicted among non-blacks CKD-EPI vol rate/area (S/P/Bld) 101 mL/min/1.73 Normal Comprehensiv e Internal Medicine Work Phone: Comment on above: PATIENT WAS FASTINGP ERFORMED BY: AFRICA [facility] Ospjmn8225 [address] RoadDublin [place] [id number] Globulin mass conc (S) 2.0 g/dL Normal 1.5-4.5 [facility] Work Phone: Comment on above: PATIENT WAS FASTINGP ERFORMED BY: AFRICA [facility] Qemkcn2002 [address]rios RoadDublin [place] [id number] Glucose mass conc 109 mg/dL Abnormal 65-99 Compreh ensive Internal Medicine Work Phone: Comment on above: PATIENT WAS FASTINGP ERFORMED BY: AFRICA [facility] Avgxzp9671 [facility] [id number] Potassium molar conc 4.4 mmol/L Normal 3.5-5.2 Comp rehensive Internal Medicine Work Phone: Comment on above: PATIENT WAS FASTINGP ERFORMED BY: AFRICA [facility] Grygzf1443 [facility] [id number] Protein mass conc 6.6 g/dL Normal 6.0-8.5 Compreh ensive Internal Medicine Work Phone: Comment on above: PATIENT WAS FASTINGP ERFORMED BY: AFRICA [facility] TobarMcladz5244 [facility] [id number] Sodium molar conc 139 mmol/L Normal 134-144 Compreh ensive Internal Medicine Work Phone: Comment on above: PATIENT WAS FASTINGP ERFORMED BY: AFRICA [facility] Efzppd8590 [facility] [id number] Urea nitrogen mass conc 13 mg/dL Normal 6-24 [facility] Work Phone: Comment on above: PATIENT WAS FASTINGP ERFORMED BY: AFRICA [facility] Etfckh1294 [facility] [id number] Urea nitrogen/Creatinine mass ratio 15 mg/mg Normal 9-20 [facility] Work Phone: Comment on above: PATIENT WAS FASTINGP ERFORMED BY: AFRICA [facility] Tgysnu3754 [facility] [id number] Partial Thromboplast TimeOrd ered By: Activity Specialist on 12-04-2014 aPTT Coag time (PPP) 29.5 s Normal 24.1-36.[address] [facility] Work Phone: Comment on above: Test performed at:[facility] [address] [place], [place] [address] Prothrombin Time w/INROrdere d By: Activity Specialist on 12-04-2014 Prothrombin Time w/INR 11.5 s Abnormal 11.7-14.9 Co [facility] Internal Medicine Work Phone: Comment on above: Test performed at:[facility] [address] [place] [address] Prothrombin Time w/INR 0.8 1 Normal Co mprehensive Internal Medicine Work Phone: Comment on above: Test performed at:[facility] [address] [place], [place] [id number] CBC W/Diff, AutomatedOrdered By: Activity Specialist on 11-23-2014 Absolute Neut 2.9 {X10_3/uL} Normal 2.0-7.7 Compreh ensive Internal Medicine Work Phone: Comment on above: Test performed at:[facility] [address] [place] [address] ; non-emergent till apt Basophils/100 WBC (Bld) 1.7 % Abnormal 0-1 [facility] Work Phone: Comment on above: Test performed at:[facility] [address] [place] [address] ; non-emergent till apt Eosinophils/100 WBC (Bld) 3.2 % Normal 0-5 [facility] Work Phone: Comment on above: Test performed at:[facility] [address] [place] [address] ; non-emergent till apt Erythrocyte distribution width Ratio (RBC) 13.6 % Normal 11.6-14.6 [facility] Work Phone: Comment on above: Test performed at:[facility] [address] [place] [address] ; non-emergent till apt Hematocrit Volume Fraction (Bld) 45.8 % Normal 40-54 [facility] Work Phone: Comment on above: Test performed at:[facility] [address] [place], [place] [id number] ; non-emergent till apt Hemoglobin mass conc (Bld) 16.4 g/dL Normal 13.0-16.5 [facility] Work Phone: Comment on above: Test performed at:[facility] [address] [place] [address] ; non-emergent till apt IM GRAN % 0.200 % Normal 0.0-0.9 [facility] Work Phone: Comment on above: IG% - Immature Granu locytes (promyelocytes, myelocytes andmetamyelocytes) > 1% indicates that a LEFT SHIFT is Present. Test performed at:[facility] [address]zc[address] [place] [address] ; non-emergent till apt Lymphocytes #/vol (Bld) 1.62 {X10_3/ul} Normal 0.83-4.51 [facility] Work Phone: Comment on above: Test performed at:[facility] [address]sc[address] [place] [address] ; non-emergent till apt Lymphocytes/100 WBC (Bld) 30.2 % Normal 19-41 [facility] Work Phone: Comment on above: Test performed at:[facility] [address]ax[address] [place] [address] ; non-emergent till apt MCH Entitic mass (RBC) 33.2 pg Abnormal 27.0-32.0 [facility]erens[facility] Work Phone: Comment on above: Test performed at:[facility] [address] [place] [address] ; non-emergent till apt MCHC mass conc (RBC) 35.8 {g/gl} Normal 32-36 [facility] prehensive Internal Medicine Work Phone: Comment on above: Test performed at:[facility] [address]uy[address] [place], [place] [id number] ; non-emergent till apt MCV Entitic volume (RBC) 92.7 fL Normal 80-94 [facility] Work Phone: Comment on above: Test performed at:[facility] [address] [place] [address] ; non-emergent till apt Monocytes/100 WBC (Bld) 10.8 % Abnormal 0-10 [facility] Work Phone: Comment on above: Test performed at:[facility] [address] [place] [address] ; non-emergent till apt Neutrophils/100 WBC (Bld) 53.9 % Normal 47-70 [facility] Work Phone: Comment on above: Test performed at:[facility] [address] [place] [address] ; non-emergent till apt Platelet mean volume Entitic volume (Bld) 9.7 fL Normal 6.2-12.0 Comprehensi Internal Medicine Work Phone: Comment on above: Test performed at:[facility] [address] [place] [address] ; non-emergent till apt Platelets #/vol (Bld) 239 10*3/uL Normal 150-450 Co [facility] Internal Medicine Work Phone: Comment on above: Test performed at:[facility] [address] [place] [address] ; non-emergent till apt RBC #/vol (Bld) 4.94 {M/mm3} Normal 4.6-6.2 Compreh ensive Internal Medicine Work Phone: Comment on above: Test performed at:[facility] [address] [place] [address] ; non-emergent till apt RDW SD 45.0 fL Abnormal 35.1-43.9 [facility] Work Phone: Comment on above: Test performed at:[facility] [address] [place] [address] ; non-emergent till apt WBC #/vol (Bld) 5.4 10*3/uL Normal 4.4-11.0 Comprehe nsive Internal Medicine Work Phone: Comment on above: Test performed at:[facility] [address] [place] [address] ; non-emergent till apt CBC W/Diff, Automated 13.6 % Normal 11.6-14.6 Com prehensive Internal Medicine Work Phone: Comment on above: Test performed at:[facility] [address] [place] [address] ; non-emergent till apt CBC W/Diff, Automated 35.8 {g/gl} Normal 32-36 [facility] Work Phone: Comment on above: Test performed at:[facility] [address] [place] [address] ; non-emergent till apt CBC W/Diff, Automated 33.2 pg Abnormal 27.0-32.0 [facility] prehensive Internal Medicine Work Phone: Comment on above: Test performed at:[facility] [address] [place] [address] ; non-emergent till apt CBC W/Diff, Automated 2.9 {X10_3/uL} Normal 2.0-7.7 [facility] Work Phone: Comment on above: Test performed at:[facility] [address] [place] [address] ; non-emergent till apt CBC W/Diff, Automated 1.62 {X10_3/ul} Normal 0.83-4.51 [facility] Work Phone: Comment on above: Test performed at:[facility] [address] [place] [address] ; non-emergent till apt CBC W/Diff, Automated 3.2 % Normal 0-5 Com prehensive Internal Medicine Work Phone: Comment on above: Test performed at:[facility] [address] [place] [address] ; non-emergent till apt CBC W/Diff, Automated 1.7 % Abnormal 0-1 Com prehensive Internal Medicine Work Phone: Comment on above: Test performed at:[facility] [address] [place] [address] ; non-emergent till apt CBC W/Diff, Automated 239 K/mm3 Normal 150-450 Com prehensive Internal Medicine Work Phone: Comment on above: Test performed at:[facility] [address] [place] [address] ; non-emergent till apt CBC W/Diff, Automated 45.0 fL Abnormal 35.1-43.9 Com prehensive Internal Medicine Work Phone: Comment on above: Test performed at:[facility] [address] [place] [address] ; non-emergent till apt CBC W/Diff, Automated 30.2 % Normal 19-41 Com prehensive Internal Medicine Work Phone: Comment on above: Test performed at:[facility] [address] [place] [address] ; non-emergent till apt CBC W/Diff, Automated 53.9 % Normal 47-70 Com prehensive Internal Medicine Work Phone: Comment on above: Test performed at:[facility] [address] [place] [address] ; non-emergent till apt CBC W/Diff, Automated 45.8 % Normal 40-54 Com prehensive Internal Medicine Work Phone: Comment on above: Test performed at:[facility] [address] [place] [address] ; non-emergent till apt CBC W/Diff, Automated 16.4 g/dL Normal 13.0-16.5 Com prehensive Internal Medicine Work Phone: Comment on above: Test performed at:[facility] [address] [place] [address] ; non-emergent till apt CBC W/Diff, Automated 4.94 {M/mm3} Normal 4.6-6.2 C [facility] Internal Medicine Work Phone: Comment on above: Test performed at:[facility] [address] [place] [address] ; non-emergent till apt CBC W/Diff, Automated 92.7 fL Normal 80-94 [facility] prehensive Internal Medicine Work Phone: Comment on above: Test performed at:[facility] [address] [place] [address] ; non-emergent till apt CBC W/Diff, Automated 5.4 K/mm3 Normal 4.4-11.0 [facility] prehensive Internal Medicine Work Phone: Comment on above: Test performed at:[facility] [address] [place] [address] ; non-emergent till apt CBC W/Diff, Automated 10.8 % Abnormal 0-10 [facility] prehensive Internal Medicine Work Phone: Comment on above: Test performed at:[facility] [address] [place] [address] ; non-emergent till apt CBC W/Diff, Automated 0.200 % Normal 0.0-0.9 [facility] prehensive Internal Medicine Work Phone: Comment on above: IG% - Immature Granu locytes (promyelocytes, myelocytes andmetamyelocytes) > 1% indicates that a LEFT SHIFT is Present. Test performed at:[facility] [address] [place] [address] ; non-emergent till apt CBC W/Diff, Automated 9.7 fL Normal 6.2-12.0 [facility] prehensive Internal Medicine Work Phone: Comment on above: Test performed at:[facility] [address] [place], [place] [address] ; non-emergent till apt Comprehensive Metabolic Prof ilOrdered By: Activity Specialist on 11-23-2014 Comprehensive metabolic 2000 panel 48 U/L Normal 12-78 Comprehensi ve Internal Medicine Work Phone: Comment on above: Test performed at:[facility] [address] [place] [address] Comprehensive metabolic 2000 panel 22 U/L Normal 15-37 Comprehensi ve Internal Medicine Work Phone: Comment on above: Test performed at:[facility] [address] [place] [address] Comprehensive metabolic 2000 panel 8.8 mg/dL Normal 8.5-10.1 Comprehensi ve Internal Medicine Work Phone: Comment on above: Test performed at:[facility] [address] [place] [address] Comprehensive metabolic 2000 panel 6 1 Normal 5-15 Comprehensi ve Internal Medicine Work Phone: Comment on above: Test performed at:[facility] [address] [place] [address] Comprehensive metabolic 2000 panel 21.0 {RATIO} Abnormal 10-20 Comprehensi ve Internal Medicine Work Phone: Comment on above: Test performed at:[facility] [address] [place] [address] Comprehensive metabolic 2000 panel 1.05 mg/dL Normal 0.70-1.30 Comprehensi ve Internal Medicine Work Phone: Comment on above: Please note revised CREATININE reference range buyxmlobp83/22/2015. Test performed at:[facility] [address] [place] [address] Comprehensive metabolic 2000 panel 137 mmol/L Normal 136-145 Comprehensi ve Internal Medicine Work Phone: Comment on above: Test performed at:[facility] [address] [place] [address] Comprehensive metabolic 2000 panel 0.50 mg/dL Normal 0.20-1.00 Comprehensi ve Internal Medicine Work Phone: Comment on above: Test performed at:[facility] [address] [place], [place] [id number] Comprehensive metabolic 2000 panel 1.7 {RATIO} Normal 0.9-2.4 Comprehensi ve Internal Medicine Work Phone: Comment on above: Test performed at:[facility] [address] [place] [address] Comprehensive metabolic 2000 panel 107 mmol/L Normal 98-107 Comprehensi ve Internal Medicine Work Phone: Comment on above: Test performed at:[facility] [address] [place], [place] [id number] Comprehensive metabolic 2000 panel 7.0 g/dL Normal 6.4-8.2 Comprehensi ve Internal Medicine Work Phone: Comment on above: Test performed at:[facility] [address] [place] [address] Comprehensive metabolic 2000 panel 4.8 mmol/L Normal 3.5-5.1 Comprehensi ve Internal Medicine Work Phone: Comment on above: Test performed at:[facility] [address] [place] [address] Comprehensive metabolic 2000 panel 22 mg/dL Abnormal 7-18 Comprehensi ve Internal Medicine Work Phone: Comment on above: Test performed at:[facility] [address] [place] [address] Comprehensive metabolic 2000 panel 80 mL/min Normal Comprehensi ve Internal Medicine Work Phone: Comment on above: Test performed at:[facility] [address] [place] [address] Comprehensive metabolic 2000 panel 4.4 g/dL Normal 3.4-5.0 Comprehensi ve Internal Medicine Work Phone: Comment on above: Test performed at:[facility] [address] [place] [address] Comprehensive metabolic 2000 panel 97 mL/min Normal Comprehensi ve Internal Medicine Work Phone: Comment on above: Test performed at:[facility] [address] [place], [place] [address] Comprehensive metabolic 2000 panel 24.0 mmol/L Normal 21.0-32.0 Comprehensi ve Internal Medicine Work Phone: Comment on above: Test performed at:[facility] [address] [place] [address] Comprehensive metabolic 2000 panel 2.6 g/dL Normal 2.3-3.5 Comprehensi ve Internal Medicine Work Phone: Comment on above: Test performed at:[facility] [address] [place] [address] Comprehensive metabolic 2000 panel 37 U/L Abnormal 50-136 Comprehensi ve Internal Medicine Work Phone: Comment on above: Test performed at:[facility] [address] [place] [address] Comprehensive metabolic 2000 panel 97 mg/dL Normal 70-110 Comprehensi ve Internal Medicine Work Phone: Comment on above: Test performed at:[facility] [address] [place], [place] [id number] Lipid ProfileOrdered By: Dallas tem Staff Electronic Warfare Officer on 11-23-2014 Cholesterol in HDL mass conc 56 mg/dL Normal Comprehensive [facility] Work Phone: Comment on above: Reference Range HDL <40 mg/dL Low HDL Cholesterol HDL >or= 60 mg/dL High HDL Cholesterol Test performed at:[facility] [address] [place] [address] Cholesterol in LDL mass conc 91 mg/dL Normal 0-130 [facility] Work Phone: Comment on above: Test performed at:[facility] [address] [place] [address] Cholesterol in VLDL mass conc 25 mg/dL Normal 5-40 [facility] Work Phone: Comment on above: Test performed at:[facility] [address] [place] [address] Cholesterol mass conc 172 mg/dL Normal Com prehensive Internal Medicine Work Phone: Comment on above: <200 mg/dL Desirable 200-240 mg/dL Borderline >240 mg/dL High Risk Test performed at:[facility] [address] [place], [place] [id number] Triglyceride mass conc 123 mg/dL Normal Co mprehensive Internal Medicine Work Phone: Comment on above: Serum Triglycerides Reference Interval Normal <150 mg/dL Borderline high 150 - 199 mg/dL High 200 - 499 mg/dL Very High > or = 500 mg/dL Test performed at:[facility] [address] [place] [address] Lipid Profile 172 mg/dL Normal Comprehensi ve Internal Medicine Work Phone: Comment on above: <200 mg/dL Desirable 200-240 mg/dL Borderline >240 mg/dL High Risk Test performed at:[facility] [address] [place], [place] [phone] Lipid Profile 56 mg/dL Normal Comprehensi ve Internal Medicine Work Phone: Comment on above: Reference Range HDL <40 mg/dL Low HDL Cholesterol HDL >or= 60 mg/dL High HDL Cholesterol Test performed at:[facility] [address] [place], [place] [phone] Lipid Profile 123 mg/dL Normal Comprehensi ve Internal Medicine Work Phone: Comment on above: Serum Triglycerides Reference Interval Normal <150 mg/dL Borderline high 150 - 199 mg/dL High 200 - 499 mg/dL Very High > or = 500 mg/dL Test performed at:[facility] [address] [place], [place] [id number] Lipid Profile 91 mg/dL Normal 0-130 Comprehensi ve Internal Medicine Work Phone: Comment on above: Test performed at:[facility] [address] [place] [address] Lipid Profile 25 mg/dL Normal 5-40 Comprehensi ve Internal Medicine Work Phone: Comment on above: Test performed at:[facility] [address] [place] [address] PZUOJ-[id number] ([id number])Ordered By: Activity Specialist on 07-25-2014 AFP.tumor marker mass conc 3.8 ng/mL Normal 0.0-8.3 [facility] Work Phone: Comment on above: Jonnathan ECLIA methodol ogy PERFORMED BY: [address] [place] [address] [id number] CBC WITH MANUAL DIFF (00299) Ordered By: Activity Specialist on 07-25-2014 Basophils #/vol (Bld) 0.0 {x10E3/uL} Normal 0.0-0.2 [facility] Work Phone: Comment on above: PERFORMED BY: [address] [id number] Basophils (Bld) [#/Vol] 0.0 10*3/uL Normal 0.0-0.2 [facility]; [facility] Work Phone: Basophils/100 WBC (Bld) 1 % Normal [facility] Work Phone: Comment on above: PERFORMED BY: [employer] [address] [id number] Eosinophils #/vol (Bld) 0.2 {x10E3/uL} Normal 0.0-0.4 [facility] Work Phone: Comment on above: PERFORMED BY: [employer] [address] [id number] Eosinophils (Bld) [#/Vol] 0.2 10*3/uL Normal 0.0-0.4 [facility]; [facility] Work Phone: Eosinophils/100 WBC (Bld) 4 % Normal [facility] Work Phone: Comment on above: PERFORMED BY: [facility] [id number] Erythrocyte distribution width Ratio (RBC) 14.2 % Normal 12.3-15.4 [facility] Work Phone: Comment on above: PERFORMED BY: [facility] [id number] Hematocrit Volume Fraction (Bld) 46.1 % Normal 37.5-51.0 [facility] Work Phone: Comment on above: PERFORMED BY: [facility] [id number] Hemoglobin mass conc (Bld) 15.7 g/dL Normal 12.6-17.7 Comprehensive Internal Medicine Work Phone: Comment on above: PERFORMED BY: [facility] [id number] Immature granulocytes #/vol (Bld) 0.0 {x10E3/uL} Normal 0.0-0.1 [facility] Work Phone: Comment on above: PERFORMED BY: [facility] [id number] Immature granulocytes (Bld) [#/Vol] 0.0 10*3/uL Normal 0.0-0.1 [facility]; [facility] Work Phone: Immature granulocytes/100 WBC (Bld) 0 % Normal [facility] Work Phone: Comment on above: PERFORMED BY: [facility] [id number] Lymphocytes #/vol (Bld) 2.2 {x10E3/uL} Normal 0.7-3.1 [facility] Work Phone: Comment on above: PERFORMED BY: [facility] [place] [id number] Lymphocytes (Bld) [#/Vol] 2.2 10*3/uL Normal 0.7-3.1 [facility]; [facility] Work Phone: Lymphocytes/100 WBC (Bld) 39 % Normal [facility] Work Phone: Comment on above: PERFORMED BY: [facility] [id number] MCH Entitic mass (RBC) 31.7 pg Normal 26.6-33.0 [facility] Internal Medicine Work Phone: Comment on above: PERFORMED BY: [facility] [id number] MCHC mass conc (RBC) 34.1 g/dL Normal 31.5-35.7 [facility] Internal Medicine Work Phone: Comment on above: PERFORMED BY: [employer] Barrios [facility] [id number] MCV Entitic volume (RBC) 93 fL Normal 79-97 [facility] Work Phone: Comment on above: PERFORMED BY: [facility] [id number] Monocytes #/vol (Bld) 0.7 {x10E3/uL} Normal 0.1-0.9 [facility] Work Phone: Comment on above: PERFORMED BY: [employer] BarriosColored SolarMission Hospital [id number] Monocytes (Bld) [#/Vol] 0.7 10*3/uL Normal 0.1-0.9 [facility]; [facility] Work Phone: Monocytes/100 WBC (Bld) 12 % Normal [facility] Work Phone: Comment on above: PERFORMED BY: [facility] [id number] Neutrophils #/vol (Bld) 2.5 {x10E3/uL} Normal 1.4-7.0 [facility] Work Phone: Comment on above: PERFORMED BY: Total Prestige6370 [facility] [id number] Neutrophils (Bld) [#/Vol] 2.5 10*3/uL Normal 1.4-7.0 [facility]; [facility] Work Phone: Neutrophils/100 WBC (Bld) 44 % Normal [facility] Work Phone: Comment on above: PERFORMED BY: [facility] [id number] Platelets #/vol (Bld) 199 {x10E3/uL} Normal 150-379 [facility] Work Phone: Comment on above: PERFORMED BY: [facility] [id number] Platelets (Bld) [#/Vol] 199 10*3/uL Normal 150-379 [facility]; [facility] Work Phone: RBC #/vol (Bld) 4.95 {x10E6/uL} Normal 4.14-5.80 Comp rehensive Internal Medicine Work Phone: Comment on above: PERFORMED BY: [employer] [id number] RBC (Bld) [#/Vol] 4.95 10*6/uL Normal 4.14-5.80 Compr ehensive Internal Medicine; [facility] Work Phone: WBC #/vol (Bld) 5.6 {x10E3/uL} Normal 3.4-10.8 Compr ehensive Internal Medicine Work Phone: Comment on above: PERFORMED BY: [employer] [id number] WBC (Bld) [#/Vol] 5.6 10*3/uL Normal 3.4-10.8 Compre [facility]; [facility] Work Phone: Lipid Panel ([id number])Ordered B y: Activity Specialist on 07-25-2014 Cholesterol in HDL mass conc 57 mg/dL Normal [facility] Work Phone: Comment on above: According to ATP-III Guidelines, HDL-C >59 mg/dL is considered anegative risk factor for CHD. PERFORMED BY: Total [employer] [place] [id number] Cholesterol in LDL mass conc 109 mg/dL Abnormal 0-99 [facility] Work Phone: Comment on above: PERFORMED BY: Total [employer]6[address] [id number] Cholesterol in LDL/Cholesterol in HDL mass ratio 1.9 {ratio_units} Normal 0.0-3.6 [facility] Work Phone: Comment on above: LDL/HDL Ratio Men Wo men 1/2 Avg.Risk 1.0 1.5 Avg.Risk 3.6 3.2 2X Avg.Risk 6.2 5.0 3X Avg.Risk 8.0 6.1 PERFORMED BY: Total Prestige6370 [facility] [id number] Cholesterol in VLDL mass conc 16 mg/dL Normal 5-40 [facility] Work Phone: Comment on above: PERFORMED BY: Total [employer] [place] [id number] Cholesterol mass conc 182 mg/dL Normal 100-199 Com prehensive Internal Medicine Work Phone: Comment on above: PERFORMED BY: Total [employer] [place] [id number] Triglyceride mass conc 81 mg/dL Normal 0-149 [facility] Work Phone: Comment on above: PERFORMED BY: Total [employer] [id number] Metabolic Panel, Comprehensi ve (40950)Ordered By: Activity Specialist on 07-25-2014 Albumin mass conc 4.8 g/dL Normal 3.5-5.5 Compreh ensive Internal Medicine Work Phone: Comment on above: PERFORMED BY: [employer] [place] [id number] Albumin/Globulin mass ratio 2.8 {ratio} Abnormal 1.1-2.5 [facility] Work Phone: Comment on above: PERFORMED BY: [facility]70 [address] [facility] [id number] ALP [Catalytic activity/Vol] 37 U/L Abnormal 39-117 [facility]; [facility] Work Phone: ALP enzyme act/vol 37 [iU]/L Abnormal 39-117 [facility] Internal Medicine Work Phone: Comment on above: PERFORMED BY: [facility]70 [facility] [id number] ALT [Catalytic activity/Vol] 46 U/L Abnormal 0-44 [facility]; [facility] Work Phone: ALT enzyme act/vol 46 [iU]/L Abnormal 0-44 [facility] Internal Medicine Work Phone: Comment on above: PERFORMED BY: [facility]70 [facility] [id number] AST [Catalytic activity/Vol] 36 U/L Normal 0-40 [facility]; [facility] Internal Medicine Work Phone: AST enzyme act/vol 36 [iU]/L Normal 0-40 [facility] Internal Medicine Work Phone: Comment on above: PERFORMED BY: [facility]70 [facility] [id number] Bilirubin mass conc 0.7 mg/dL Normal 0.0-1.2 [facility] Internal Medicine Work Phone: Comment on above: PERFORMED BY: [facility] [employer]70 [facility] [id number] Calcium mass conc 9.5 mg/dL Normal 8.7-10.2 [facility] Internal Medicine Work Phone: Comment on above: PERFORMED BY: [facility] [id number] Chloride molar conc 96 mmol/L Abnormal 97-108 [facility] Work Phone: Comment on above: PERFORMED BY: [employer] [place] [id number] CO2 molar conc 20 mmol/L Normal 18-29 Comprehens chalo Internal Medicine Work Phone: Comment on above: PERFORMED BY: Ivantislin6[address] [place] [id number] Creatinine mass conc 0.97 mg/dL Normal 0.76-1.27 Comp rehensive Internal Medicine Work Phone: Comment on above: PERFORMED BY: Total [employer]ige6[address] [place] [id number] GFR/1.73 sq M predicted among blacks CKD-EPI vol rate/area (S/P/Bld) 107 mL/min/1.73 Normal [facility] Work Phone: Comment on above: PERFORMED BY: Total Prestige6370 [address] [employer] [facility] ServicesBrynMission Hospital [id number] GFR/1.73 sq M predicted among non-blacks CKD-EPI vol rate/area (S/P/Bld) 93 mL/min/1.73 Normal Comprehensiv e Internal Medicine Work Phone: Comment on above: PERFORMED BY: Total [employer]6[address] [place] [id number] Globulin mass conc (S) 1.7 g/dL Normal 1.5-4.5 [facility] Internal Medicine Work Phone: Comment on above: PERFORMED BY: Total Prestige6370 [address] [facility] [id number] Glucose mass conc 73 mg/dL Normal 65-99 Compreh ensive Internal Medicine Work Phone: Comment on above: PERFORMED BY: Total [employer]6[address] [place] [id number] Potassium molar conc 4.1 mmol/L Normal 3.5-5.2 Comp rehensive Internal Medicine Work Phone: Comment on above: PERFORMED BY: Total Prestige6370 [facility] [id number] Protein mass conc 6.5 g/dL Normal 6.0-8.5 Compreh ensive Internal Medicine Work Phone: Comment on above: PERFORMED BY: [employer] [facility] Rupinder Uagkyk[address] [place] [id number] Sodium molar conc 136 mmol/L Normal 134-144 [facility] Internal Medicine Work Phone: Comment on above: PERFORMED BY: [employer] [facility] Rupinder Dmdooy[address] [place] [id number] Urea nitrogen mass conc 19 mg/dL Normal 6-24 [facility] Work Phone: Comment on above: PERFORMED BY: [employer] [facility]upinder Mxhhgp2667 Bar[address] Protagenin [place] [id number] Urea nitrogen/Creatinine mass ratio 20 mg/mg Normal 9-20 [facility] Work Phone: Comment on above: PERFORMED BY: [facility] [employer] [facility] Rupinder Netcib[address] [place] [id number] PSA (PROSTATE SPECIFIC ANTIG EN) (40035)Ordered By: Activity Specialist on 07-25-2014 Prostate specific Ag mass conc 0.4 ng/mL Normal 0.0-4.0 [facility] Internal Medicine Work Phone: Comment on above: Tube2Tone ECLIA methodol ogy. .According to the [place] [employer], Serum PSA shoulddecrease and remain at undetectable levels after radicalprostatectomy. The AUA defines biochemical recurrence as an initialPSA value 0.2 ng/mL or greater followed by a subsequent confirmatoryPSA value 0.2 ng/mL or greater.Values obtained with different assay methods or kits cannot be usedinterchangeably. Results cannot be interpreted as absolute evidenceof the presence or absence of malignant disease. screening; PERFORMED BY: [employer] [facility] Qyxnku3058 [place] [id number] PT (Prothrobim Time) (79277) Ordered By: Activity Specialist on 07-25-2014 INR Coag RelTime (PPP) 1.1 {INR} Normal 0.8-1.2 [facility] Internal Medicine Work Phone: Comment on above: Reference interval i s for non-anticoagulated patients. . Suggested INR therapeutic range for Vitamin K antagonist therapy: Standard Dose (moderate intensity therapeutic range): 2.0 - 3.0 Higher intensity therapeutic range 2.5 - 3.5 PERFORMED BY: Total Prestige6[address] [place] [place] [id number] Prothrombin time (PT) Coag time (PPP) 11.2 {sec} Normal 9.1-12.0 [facility] Work Phone: Comment on above: PERFORMED BY: Total Prestige6370 [facility] [id number] PT Coag (PPP) [Time] 11.2 s Normal 9.1-12.0 [facility]; [facility] Internal Medicine Work Phone: PTT (Activated Partial Throm boplastin Time) (48827)Ordered By: Activity Specialist on 07-25-2014 aPTT Coag (PPP) [Time] 28 s Normal 24-33 [facility]; [facility] Internal Medicine Work Phone: aPTT Coag time (PPP) 28 {sec} Normal 24-33 [facility] Internal Medicine Work Phone: Comment on above: This test has not be en validated for monitoring unfractionated heparintherapy. aPTT-based therapeutic ranges for unfractionated heparintherapy have not been established. For general guidelines onHeparin monitoring, refer to the [facility] Directory of Services. PERFORMED BY: Total Prestige6370 [facility] [id number] TSH (72059)Ordered By: Syste m Staff Electronic Warfare Officer on 07-25-2014 Thyrotropin Qn 3.520 {uIU/mL} Normal 0.450-4.50 0 [facility] Internal Medicine Work Phone: Comment on above: PERFORMED BY: Total Prestige6370 [facility] [id number] URINALYSIS (66894)Ordered By : Activity Specialist on 07-25-2014 Appearance Nom (U) Clear Normal [facility] Internal Medicine Work Phone: Comment on above: PERFORMED BY: Total Prestige6370 [facility] [id number] Bilirubin Ql (U) Negative Normal [facility] Internal Medicine Work Phone: Comment on above: PERFORMED BY: Ivantislin6370 [address]rios RoadDublin [place] [id number] Bilirubin Ql (U) Negative Normal Comprehe nsive Internal Medicine; [facility] Work Phone: Color Nom (U) Yellow Normal Comprehensi ve Internal Medicine Work Phone: Comment on above: PERFORMED BY: Total Prestige6370 [address]rios RoadDublin [place] [id number] Glucose Ql (U) Negative Normal Comprehens chalo Internal Medicine Work Phone: Comment on above: PERFORMED BY: Total Prestige6370 [address] RoadDublin [place] [id number] Glucose Ql (U) Negative Normal Comprehens chalo Internal Medicine; [facility] Work Phone: Hemoglobin Ql (U) Negative Normal Compreh ensive Internal Medicine Work Phone: Comment on above: PERFORMED BY: Total Prestige6370 [address] RoadDublin [place] [id number] Hemoglobin Ql (U) Negative Normal Compreh ensive Internal Medicine; [facility] Work Phone: Ketones Ql (U) Trace Abnormal Comprehens chalo Internal Medicine Work Phone: Comment on above: PERFORMED BY: Ivantislin6370 [address]rios RoadDublin [place] [id number] Leukocyte esterase Test strip Ql (U) Negative Normal [facility] Work Phone: Comment on above: PERFORMED BY: Ivantislin6370 [address] RoadDublin [place] [id number] Leukocyte esterase Test strip Ql (U) Negative Normal [facility]; [facility] Work Phone: Microscopic observation LM Nom (Urine sed) MICNIP Normal [facility] Work Phone: Comment on above: Microscopic not luis alberto cated and not performed. PERFORMED BY: Ivantislin6370 [address]rios RoadDublin [place] [id number] Nitrite Ql (U) Negative Normal Comprehens chalo Internal Medicine Work Phone: Comment on above: PERFORMED BY: Origo.by Hudnks4563 [facility] [id number] Nitrite Ql (U) Negative Normal Comprehens chalo Internal Medicine; [facility] Work Phone: pH (U) 6.0 [pH] Normal 5.0-7.5 [facility] Work Phone: Comment on above: PERFORMED BY: Total Prestige[address] [place] [address] [id number] Protein Ql (U) Negative Normal Comprehens chalo Internal Medicine Work Phone: Comment on above: PERFORMED BY: [facility] [place], [place] [address]Col[facility] SolarM[facility] Hospital [id number] Protein Ql (U) Negative Normal Comprehens chalo Internal Medicine; [facility] Work Phone: Specific gravity Relative Density (U) 1.012 1 Normal 1.005-1.03 0 [facility] Work Phone: Comment on above: PERFORMED BY: Ivantis86 [address]ox [facility] [id number] Urobilinogen (U) [Mass/Vol] 0.2 mg/dL Normal 0.0-1.9 [facility]; [facility] Work Phone: Urobilinogen Test strip mass conc (U) 0.2 mg/dL Normal 0.0-1.9 Comprehensiv e Internal Medicine Work Phone: Comment on above: PERFORMED BY: Ivantis[address] [id number] AFP, Tumor MarkerOrdered By: Activity Specialist on 05-28-2014 AFP, Tumor Marker 4.3 ng/mL Normal 0.0-8.3 Compreh ensive Internal Medicine Work Phone: Comment on above: Jonnathan ECLIA methodol ogyPerformed at: [facility] - [facility] [id number] Director: Tito Rosales PhD, Phone: [phone] Has pt arrived? YTes t performed at:[facility] [address] [place] [address] CBC W/Diff, AutomatedOrdered By: Activity Specialist on 05-28-2014 Absolute Neut 2.8 {X10_3/uL} Normal 2.0-7.7 Compreh ensive Internal Medicine Work Phone: Comment on above: Has pt arrived? YTes t performed at:[facility] [address] [place] [address] Basophils/100 WBC (Bld) 0.7 % Normal 0-1 [facility] Work Phone: Comment on above: Has pt arrived? YTes t performed at:[facility] [address] [place] [address] Eosinophils/100 WBC (Bld) 3.3 % Normal 0-5 [facility] Work Phone: Comment on above: Has pt arrived? YTes t performed at:[facility] [address] [place] [address] Erythrocyte distribution width Ratio (RBC) 13.2 % Normal 11.6-14.6 [facility] Work Phone: Comment on above: Has pt arrived? YTes t performed at:[facility] [address] [place] [address] Hematocrit Volume Fraction (Bld) 47.5 % Normal 40-54 [facility] Work Phone: Comment on above: Has pt arrived? YTes t performed at:[facility] Hzbguywssp[address] [facility] [place] [address] Hemoglobin mass conc (Bld) 16.9 g/dL Abnormal 13.0-16.5 [facility] Work Phone: Comment on above: Has pt arrived? YTes t performed at:[facility] [address] [place] [address] IM GRAN % 0.200 % Normal 0.0-0.9 [facility] Work Phone: Comment on above: IG% - Immature Granu locytes (promyelocytes, myelocytes andmetamyelocytes) > 1% indicates that a LEFT SHIFT is Present. Has pt arrived? YTes t performed at:[facility] [address] [place] [address] Lymphocytes #/vol (Bld) 1.88 {X10_3/ul} Normal 0.83-4.51 [facility] Work Phone: Comment on above: Has pt arrived? YTes t performed at:[facility] [address] [place] [address] Lymphocytes/100 WBC (Bld) 34.7 % Normal 19-41 [facility] Work Phone: Comment on above: Has pt arrived? YTes t performed at:[facility] [address] [place] [address] MCH Entitic mass (RBC) 31.9 pg Normal 27.0-32.0 [facility] Work Phone: Comment on above: Has pt arrived? YTes t performed at:[facility] [address] [place] [address] MCHC mass conc (RBC) 35.6 {g/gl} Normal 32-36 [facility] prehensive Internal Medicine Work Phone: Comment on above: Has pt arrived? YTes t performed at:[facility] [address] [place] [address] MCV Entitic volume (RBC) 89.8 fL Normal 80-94 [facility] Work Phone: Comment on above: Has pt arrived? YTes t performed at:[facility] [address] [place] [address] Monocytes/100 WBC (Bld) 9.6 % Normal 0-10 [facility] Work Phone: Comment on above: Has pt arrived? YTes t performed at:[facility] [address] [place] [address] Neutrophils/100 WBC (Bld) 51.5 % Normal 47-70 [facility] Work Phone: Comment on above: Has pt arrived? YTes t performed at:[facility] [address] [place] [address] Platelet mean volume Entitic volume (Bld) 8.9 fL Normal 6.2-12.0 Comprehensi ve Internal Medicine Work Phone: Comment on above: Has pt arrived? YTes t performed at:[facility] Hfloioyysx50[address] [place] [address] Platelets #/vol (Bld) 202 10*3/uL Normal 150-450 Co mprehensive Internal Medicine Work Phone: Comment on above: Has pt arrived? YTes t performed at:[facility] [address] [place] [address] RBC #/vol (Bld) 5.29 {M/mm3} Normal 4.6-6.2 Compreh ensive Internal Medicine Work Phone: Comment on above: Has pt arrived? YTes t performed at:[facility] [address] [place] [address] RDW SD 42.9 fL Normal 35.1-43.9 [facility] Work Phone: Comment on above: Has pt arrived? YTes t performed at:[facility] [address] [facility] [place] [place] [address] WBC #/vol (Bld) 5.4 10*3/uL Normal 4.4-11.0 Comprehe nsive Internal Medicine Work Phone: Comment on above: Has pt arrived? YTes t performed at:[facility] [address] [place] [address] CBC W/Diff, Automated 42.9 fL Normal 35.1-43.9 [facility] prehensive Internal Medicine Work Phone: Comment on above: Has pt arrived? YTes t performed at:[facility] [address] [place] [address] CBC W/Diff, Automated 13.2 % Normal 11.6-14.6 Com prehensive Internal Medicine Work Phone: Comment on above: Has pt arrived? YTes t performed at:[facility] [address] [place] [address] CBC W/Diff, Automated 16.9 g/dL Abnormal 13.0-16.5 Com prehensive Internal Medicine Work Phone: Comment on above: Has pt arrived? YTes t performed at:[facility] [address] [place] [address] CBC W/Diff, Automated 9.6 % Normal 0-10 Com prehensive Internal Medicine Work Phone: Comment on above: Has pt arrived? YTes t performed at:[facility] [address] [place] [address] CBC W/Diff, Automated 47.5 % Normal 40-54 Com prehensive Internal Medicine Work Phone: Comment on above: Has pt arrived? YTes t performed at:[facility] [address] [place] [address] CBC W/Diff, Automated 0.7 % Normal 0-1 Com prehensive Internal Medicine Work Phone: Comment on above: Has pt arrived? YTes t performed at:[facility] [address] [place] [address] CBC W/Diff, Automated 51.5 % Normal 47-70 Com prehensive Internal Medicine Work Phone: Comment on above: Has pt arrived? YTes t performed at:[facility] [address] [place] [address] CBC W/Diff, Automated 5.4 K/mm3 Normal 4.4-11.0 Com prehensive Internal Medicine Work Phone: Comment on above: Has pt arrived? YTes t performed at:[facility] [address] [place] [address] CBC W/Diff, Automated 5.29 {M/mm3} Normal 4.6-6.2 C omprehensive Internal Medicine Work Phone: Comment on above: Has pt arrived? YTes t performed at:[facility] [address] [place] [address] CBC W/Diff, Automated 0.200 % Normal 0.0-0.9 [facility] prehensive Internal Medicine Work Phone: Comment on above: IG% - Immature Granu locytes (promyelocytes, myelocytes andmetamyelocytes) > 1% indicates that a LEFT SHIFT is Present. Has pt arrived? YTes t performed at:[facility] [address] [place] [address] CBC W/Diff, Automated 8.9 fL Normal 6.2-12.0 [facility] prehensive Internal Medicine Work Phone: Comment on above: Has pt arrived? YTes t performed at:[facility] [address] [place] [address] CBC W/Diff, Automated 35.6 {g/gl} Normal 32-36 [facility] Work Phone: Comment on above: Has pt arrived? YTes t performed at:[facility] [address] [place] [address] CBC W/Diff, Automated 2.8 {X10_3/uL} Normal 2.0-7.7 [facility] Internal Medicine Work Phone: Comment on above: Has pt arrived? YTes t performed at:[facility] [address] [place] [address] CBC W/Diff, Automated 31.9 pg Normal 27.0-32.0 [facility] prehensive Internal Medicine Work Phone: Comment on above: Has pt arrived? YTes t performed at:[facility] [address] [place] [address] CBC W/Diff, Automated 3.3 % Normal 0-5 Com prehensive Internal Medicine Work Phone: Comment on above: Has pt arrived? YTes t performed at:[facility] [address] [place] [address] CBC W/Diff, Automated 89.8 fL Normal 80-94 Com prehensive Internal Medicine Work Phone: Comment on above: Has pt arrived? YTes t performed at:[facility] [address] [place] [address] CBC W/Diff, Automated 1.88 {X10_3/ul} Normal 0.83-4.51 [facility] Work Phone: Comment on above: Has pt arrived? YTes t performed at:[facility] [address] [place] [address] CBC W/Diff, Automated 202 K/mm3 Normal 150-450 Com prehensive Internal Medicine Work Phone: Comment on above: Has pt arrived? YTes t performed at:[facility] [address] [place] [address] CBC W/Diff, Automated 34.7 % Normal 19-41 Com prehensive Internal Medicine Work Phone: Comment on above: Has pt arrived? YTes t performed at:[facility] [address] [place] [address] Comprehensive Metabolic Prof ilOrdered By: Activity Specialist on 05-28-2014 Comprehensive Metabolic Profil 3 1 Abnormal 5-15 [facility] Medicine Work Phone: Comment on above: Has pt arrived? YHas pt arrived? YTest performed at:[facility] [address] [place] [address] Comprehensive Metabolic Profil 29.0 mmol/L Normal 21.0-32.0 [facility] Medicine Work Phone: Comment on above: Has pt arrived? YHas pt arrived? YTest performed at:[facility] [address] [place], [place] [id number] Comprehensive Metabolic Profil 100 mmol/L Normal 98-107 Comprehensive [facility] Medicine Work Phone: Comment on above: Has pt arrived? YHas pt arrived? YTest performed at:[facility] [address] [place] [address] Comprehensive Metabolic Profil 4.2 mmol/L Normal 3.5-5.1 Comprehensive [facility] Medicine Work Phone: Comment on above: Has pt arrived? YHas pt arrived? YTest performed at:[facility] [address] [place] [address] Comprehensive Metabolic Profil 132 mmol/L Abnormal 136-145 Comprehensive [facility] Medicine Work Phone: Comment on above: Has pt arrived? YHas pt arrived? YTest performed at:[facility] [address] [place], [place] [id number] Comprehensive Metabolic Profil 0.70 mg/dL Normal 0.00-4.00 [facility] Medicine Work Phone: Comment on above: Has pt arrived? YHas pt arrived? YTest performed at:[facility] [address] [place] [address] Comprehensive Metabolic Profil 67 U/L Normal 12-78 Comprehensive [facility] Medicine Work Phone: Comment on above: Has pt arrived? YHas pt arrived? YTest performed at:[facility] [address] [place] [address] Comprehensive Metabolic Profil 45 U/L Abnormal 50-136 Comprehensive [facility] Medicine Work Phone: Comment on above: Has pt arrived? YHas pt arrived? YTest performed at:[facility] [address] [place] [address] Comprehensive Metabolic Profil 31 U/L Normal 15-37 Comprehensive [facility] Medicine Work Phone: Comment on above: Has pt arrived? YHas pt arrived? YTest performed at:[facility] [address] [place] [address] Comprehensive Metabolic Profil 8.9 mg/dL Normal 8.5-10.1 Comprehensive [facility] Medicine Work Phone: Comment on above: Has pt arrived? YHas pt arrived? YTest performed at:[facility] [address] [place] [address] Comprehensive Metabolic Profil 2.0 {RATIO} Normal 0.9-2.4 Comprehensive [facility] Medicine Work Phone: Comment on above: Has pt arrived? YHas pt arrived? YTest performed at:[facility] [address] [place], [place] [id number] Comprehensive Metabolic Profil 2.5 g/dL Abnormal 2.7-4.2 Comprehensive [facility] Medicine Work Phone: Comment on above: Has pt arrived? YHas pt arrived? YTest performed at:[facility] [address] [place] [address] Comprehensive Metabolic Profil 4.9 g/dL Normal 3.4-5.0 Comprehensive [facility] Medicine Work Phone: Comment on above: Has pt arrived? YHas pt arrived? YTest performed at:[facility] [address] [place] [address] Comprehensive Metabolic Profil 7.4 g/dL Normal 6.4-8.2 Comprehensive [facility] Medicine Work Phone: Comment on above: Has pt arrived? YHas pt arrived? YTest performed at:[facility] [address] [place] [address] Comprehensive Metabolic Profil 19.0 {RATIO} Normal 10-20 Comprehensive Internal Medicine Work Phone: Comment on above: Has pt arrived? YHas pt arrived? YTest performed at:[facility] [address] [place] [address] Comprehensive Metabolic Profil 103 mL/min Normal Comprehensive Internal Medicine Work Phone: Comment on above: Has pt arrived? YHas pt arrived? YTest performed at:[facility] [address] [place] [address] Comprehensive Metabolic Profil 85 mL/min Normal Comprehensive Internal Medicine Work Phone: Comment on above: Has pt arrived? YHas pt arrived? YTest performed at:[facility] [address] [place] [address] Comprehensive Metabolic Profil 19 mg/dL Abnormal 7-18 Comprehensive Internal Medicine Work Phone: Comment on above: Has pt arrived? YHas pt arrived? YTest performed at:[facility] [address] [place] [address] Comprehensive Metabolic Profil 95 mg/dL Normal 70-110 Comprehensive Internal Medicine Work Phone: Comment on above: Has pt arrived? YHas pt arrived? YTest performed at:[facility] [address] [place] [address] Comprehensive Metabolic Profil 1.0 mg/dL Normal 0.8-1.3 Comprehensive [facility] Medicine Work Phone: Comment on above: Has pt arrived? YHas pt arrived? YTest performed at:[facility] [address] [place] [address] Lipid ProfileOrdered By: Dallas tem Staff Electronic Warfare Officer on 05-28-2014 Cholesterol in HDL mass conc 59 mg/dL Normal Comprehensive Internal Medicine Work Phone: Comment on above: Reference Range HDL <40 mg/dL Low HDL Cholesterol HDL >or= 60 mg/dL High HDL Cholesterol Has pt arrived? YHas pt arrived? YTest performed at:[facility] [address] [place] [address] Cholesterol in LDL mass conc 135 mg/dL Abnormal 0-130 Comprehensive [facility] Medicine Work Phone: Comment on above: Has pt arrived? YHas pt arrived? YTest performed at:[facility] [address] [place], [place] [id number] Cholesterol in VLDL mass conc 27 mg/dL Normal 5-40 Comprehensive [facility] Medicine Work Phone: Comment on above: Has pt arrived? YHas pt arrived? YTest performed at:[facility] [address] [place] [address] Cholesterol mass conc 221 mg/dL Abnormal Com prehensive Internal Medicine Work Phone: Comment on above: <200 mg/dL Desirable 200-240 mg/dL Borderline >240 mg/dL High Risk Has pt arrived? YHas pt arrived? YTest performed at:[facility] [address] [place], [place] [id number] Triglyceride mass conc 137 mg/dL Normal 0-199 [facility] Work Phone: Comment on above: Serum Triglycerides Reference Interval Normal <150 mg/dL Borderline high 150 - 199 mg/dL High 200 - 499 mg/dL Very High > or = 500 mg/dL Has pt arrived? YHas pt arrived? YTest performed at:[facility] [address] [place] [address] Lipid Profile 59 mg/dL Normal Comprehensi ve Internal Medicine Work Phone: Comment on above: Reference Range HDL <40 mg/dL Low HDL Cholesterol HDL >or= 60 mg/dL High HDL Cholesterol Has pt arrived? YHas pt arrived? YTest performed at:[facility] [address] [place] [address] Lipid Profile 27 mg/dL Normal 5-40 Comprehensi ve Internal Medicine Work Phone: Comment on above: Has pt arrived? YHas pt arrived? YTest performed at:[facility] [address] [place] [address] Lipid Profile 135 mg/dL Abnormal 0-130 Comprehensi ve Internal Medicine Work Phone: Comment on above: Has pt arrived? YHas pt arrived? YTest performed at:[facility] [address] [place] [address] Lipid Profile 137 mg/dL Normal 0-199 Comprehensi ve Internal Medicine Work Phone: Comment on above: Serum Triglycerides Reference Interval Normal <150 mg/dL Borderline high 150 - 199 mg/dL High 200 - 499 mg/dL Very High > or = 500 mg/dL Has pt arrived? YHas pt arrived? YTest performed at:[facility] [address] [place] [address] Lipid Profile 221 mg/dL Abnormal Comprehensi ve Internal Medicine Work Phone: Comment on above: <200 mg/dL Desirable 200-240 mg/dL Borderline >240 mg/dL High Risk Has pt arrived? YHas pt arrived? YTest performed at:[facility] [address] [place] [address] PSA,Total - Annual ScreenOrd ered By: Activity Specialist on 05-28-2014 PSA,Total - Annual Screen 0.33 ng/mL Normal 0.00-4.00 Comprehensive Internal Medicine Work Phone: Comment on above: This test was perfor med using the TPSA assay method for the[facility] chemistry system. Values obtained with differentassay methods cannot be used interchangably.When changing PSA assays in the course of monitoring apatient, additional sequential testing should be carriedout to confirm baseline values. Has pt arrived? YHas pt arrived? YTest performed at:[facility] [address] [place] [address] Partial Thromboplast TimeOrd ered By: Activity Specialist on 05-28-2014 Partial Thromboplast Time 30.1 s Normal 24.1-36.2 Comprehensive [facility] Medicine Work Phone: Comment on above: Has pt arrived? YTes t performed at:[facility] [address] [place] [address] Prothrombin Time w/INROrdere d By: Activity Specialist on 05-28-2014 Prothrombin Time w/INR 1.0 1 Normal [facility] Work Phone: Comment on above: Has pt arrived? YTes t performed at:[facility] [address] [place] [address] Prothrombin Time w/INR 13.3 s Normal 11.7-14.9 [facility] Work Phone: Comment on above: Has pt arrived? YTes t performed at:[facility] [address] [place] [address] Thyroid Stim Hormone (TSH)Or dered By: Activity Specialist on 05-28-2014 Thyroid Stim Hormone (TSH) 2.86 {uIU/mL} Normal 0.358-3.74 Comprehensive [facility] Medicine Work Phone: Comment on above: Has pt arrived? YHas pt arrived? YTest performed at:[facility] [address] [place] [address] Urinalysis, Routine (Dipstic k)Ordered By: Activity Specialist on 05-28-2014 Urinalysis, Routine (Dipstick) Sl Cldy Normal Comprehensive [facility] Medicine Work Phone: Comment on above: Has pt arrived? YHow was Urine Obtained? STEAM TABLE ASSOCIATE TO SPECIFYTest performed at:[facility] [address] [place] [address] Urinalysis, Routine (Dipstick) Negative Normal Comprehensive [facility] Medicine Work Phone: Comment on above: Has pt arrived? YHow was Urine Obtained? STEAM TABLE ASSOCIATE TO SPECIFYTest performed at:[facility] [address] [place] [address] Urinalysis, Routine (Dipstick) 25 /ul Abnormal Comprehensive Internal Medicine Work Phone: Comment on above: Has pt arrived? YHow was Urine Obtained? STEAM TABLE ASSOCIATE TO SPECIFYTest performed at:[facility] [address] [place] [address] Urinalysis, Routine (Dipstick) Normal Normal Comprehensive [facility] Medicine Work Phone: Comment on above: Has pt arrived? YHow was Urine Obtained? STEAM TABLE ASSOCIATE TO SPECIFYTest performed at:[facility] [address] [place] [address] Urinalysis, Routine (Dipstick) 5.0 1 Normal 5.0 - 8.0 Comprehensive Internal Medicine Work Phone: Comment on above: Has pt arrived? YHow was Urine Obtained? STEAM TABLE ASSOCIATE TO SPECIFYTest performed at:[facility] [address] [place] [address] Urinalysis, Routine (Dipstick) 1.015 1 Normal 1.002-1.03 0 Comprehensive [facility] Medicine Work Phone: Comment on above: Has pt arrived? YHow was Urine Obtained? STEAM TABLE ASSOCIATE TO SPECIFYTest performed at:[facility] [address] [place] [address] Urinalysis, Routine (Dipstick) Yellow Normal Comprehensive [facility] Medicine Work Phone: Comment on above: Has pt arrived? YHow was Urine Obtained? STEAM TABLE ASSOCIATE TO SPECIFYTest performed at:[facility] [address] [place] [address] Antinuclear Antibodies Direc tOrdered By: Activity Specialist on 11-20-2013 Nuclear Ab Ql (S) Negative Normal Compreh ensive Internal Medicine Work Phone: Comment on above: PATIENT WAS FASTINGP ERFORMED BY: BN [facility] Yxsxlietbf8138 [facility] [id number] BY: CB [facility] Ozumxe5551 [facility] [id number] BY: TG [facility] VOX5271 [facility] [id number] Antithrombin III, Func/Immun olOrdered By: Activity Specialist on 11-20-2013 Antithrombin actual/normal Chromogenic method RelCCnc (PPP) 107 % Normal 75-135 Comprehensive [facility] Medicine Work Phone: Comment on above: PATIENT WAS FASTINGP ERFORMED BY: BN [facility] [address] [id number] BY: AFRICA [facility] Wyvqvg3688 Barrios RoadDublin [place] [id number] BY: [facility] BEQ9622 [facility] [id number] Antithrombin Ag IA Qn (PPP) 96 % Normal 75-130 Comprehensive [facility] Medicine Work Phone: Comment on above: PATIENT WAS FASTINGP ERFORMED BY: BN [facility] [address] [id number] BY: AFRICA [facility] Tdytii8905 Barrios RoadDublin [place] [id number] BY: [facility] FTO6129 [facility] [id number] C-Reactive Protein, QuantOrd ered By: Activity Specialist on 11-20-2013 CRP mass conc mg/L Normal 0.0-4.9 Comprehensi Internal Medicine Work Phone: Comment on above: PATIENT WAS FASTINGP ERFORMED BY: [employer] LabMoleculinrp [address] [id number] BY: AFRICA [facility] Exjzhq7531 [facility] [id number] BY: LabMoleculinrp IZF3346 [facility] [id number] CBC With Differential/Platel etOrdered By: Activity Specialist on 11-20-2013 Basophils #/vol (Bld) 0.1 {x10E3/uL} Normal 0.0-0.2 Comprehensive [facility] Work Phone: Comment on above: PATIENT WAS FASTINGP ERFORMED BY: [employer] LabMoleculinrp [address] [id number] BY: [facility] Qmctut5844 [address] RoadDuin [place] [id number] BY: [facility] HSN5977 [facility] [id number] Basophils/100 WBC (Bld) 1 % Normal 0-3 Comprehensive [facility] Medicine Work Phone: Comment on above: PATIENT WAS FASTINGP ERFORMED BY: BN [facility] Pamuqetlen6308 [facility] [id number] BY: CB [facility] Zqelkb5252 [facility] [id number] BY: [facility] BNO7695 [facility] [id number] Eosinophils #/vol (Bld) 0.2 {x10E3/uL} Normal 0.0-0.4 [facility] Work Phone: Comment on above: PATIENT WAS FASTINGP ERFORMED BY: BN [facility] Psvknrnerr3590 [facility] [id number] BY: CB [facility] Duowwm5054 [facility] [id number] BY: [facility] ZUI8893 [facility] [id number] Eosinophils/100 WBC (Bld) 4 % Normal 0-5 Comprehensive [facility] Medicine Work Phone: Comment on above: PATIENT WAS FASTINGP ERFORMED BY: [employer] [facility] Ltkedviqrj[address] [id number] BY: CB [facility] Ddwelq1517 [facility] [id number] BY: [facility] JTD4904 [facility] [id number] Erythrocyte distribution width Ratio (RBC) 14.0 % Normal 12.3-15.4 Comprehensive [facility] Work Phone: Comment on above: PATIENT WAS FASTINGP ERFORMED BY: BN [facility] Qazkoqsrsl[address] [id number] BY: CB [facility] Keknyw8002 [facility] [id number] BY: [facility] YCB9215 [facility] [id number] Hematocrit Volume Fraction (Bld) 45.7 % Normal 37.5-51.0 Comprehensive [facility] Medicine Work Phone: Comment on above: PATIENT WAS FASTINGP ERFORMED BY: BN [facility] Gvqqbpozqj525[address] [id number] BY: [employer] Tezjhg1450 [facility] [id number] BY: LabMoleculin GFG4337 [facility] [id number] Hemoglobin mass conc (Bld) 15.6 g/dL Normal 12.6-17.7 Comprehensive [facility] Work Phone: Comment on above: PATIENT WAS FASTINGP ERFORMED BY: DLS[address] [id number] BY: [facility] Sqfzdu4543 [facility] [id number] BY: Fl[employer] NNL4658 [facility] [id number] Immature granulocytes #/vol (Bld) 0.0 {x10E3/uL} Normal 0.0-0.1 [facility] Work Phone: Comment on above: PATIENT WAS FASTINGP ERFORMED BY: DLS[address] [id number] BY: Lab[facility]oleculinrp Jetylc6906 [facility] [id number] BY: Lab[facility]oleculinrp SQB3478 [facility] [id number] Immature granulocytes/100 WBC (Bld) 0 % Normal 0-2 Comprehensive [facility] Medicine Work Phone: Comment on above: PATIENT WAS FASTINGP ERFORMED BY: [employer] [address] [id number] BY: [employer] Qotpmn3575 [facility] [id number] BY: Flipboardrp RPP0405 [facility] [id number] Lymphocytes #/vol (Bld) 1.9 {x10E3/uL} Normal 0.7-3.1 [facility] Work Phone: Comment on above: PATIENT WAS FASTINGP ERFORMED BY: Zmanda [address] [id number] BY: [facility] Oukbjr8[address] RoadDublin [place] [id number] BY: [facility] QIJ9092 [facility] [id number] Lymphocytes/100 WBC (Bld) 29 % Normal 14-46 [facility] Work Phone: Comment on above: PATIENT WAS FASTINGP ERFORMED BY: [facility] Erhqalvggv[address] [id number] BY: [facility] Liidsv9079 [address] RoadDublin [place] [id number] BY: [facility] MSM3137 [facility] [id number] MCH Entitic mass (RBC) 31.3 pg Normal 26.6-33.0 [facility] Internal Medicine Work Phone: Comment on above: PATIENT WAS FASTINGP ERFORMED BY: LabMoleculinrp Coyadmqpax[address] [id number] BY: Lab[facility]rp Oxysvt2846 [address] RoadDuin [place] [id number] BY: [facility] UAH0649 [facility] [id number] MCHC mass conc (RBC) 34.1 g/dL Normal 31.5-35.7 [facility] Internal Medicine Work Phone: Comment on above: PATIENT WAS FASTINGP ERFORMED BY: LabMoleculin [address]jbpkopsbw[address] [id number] BY: Lab[facility]oleculinrp Vvkmpb8169 [address] RoadDublin [place] [id number] BY: LabMoleculinrp NJQ3353 [facility] [id number] MCV Entitic volume (RBC) 92 fL Normal 79-97 [facility] Internal Medicine Work Phone: Comment on above: PATIENT WAS FASTINGP ERFORMED BY: LabMoleculinrp [address] [id number] BY: [facility] Trmgql9705 [address] RoadDublin [place] [id number] BY: TG [facility] XME0152 [facility] DriveRGEISINGER JERSEY SHORE [facility] [id number] Monocytes #/vol (Bld) 0.7 {x10E3/uL} Normal 0.1-0.9 Comprehensive [facility] Medicine Work Phone: Comment on above: PATIENT WAS FASTINGP ERFORMED BY: BN [facility] [address] [id number] BY: CB [facility] Baztgu[address]61 [address] [employer] Cloud ServicesDublin [place] [id number] BY: TG [facility] PFR9296 [facility] DriveRGEISINGER JERSEY SHORE HOSPITAL [id number] Monocytes/100 WBC (Bld) 11 % Normal 4-12 [facility] Medicine Work Phone: Comment on above: PATIENT WAS FASTINGP ERFORMED BY: [facility] [address] [id number] BY: CB [facility] Fulhfq9446 [address] [place] [id number] BY: [facility] TOQ0261 [facility] [id number] Neutrophils #/vol (Bld) 3.7 {x10E3/uL} Normal 1.4-7.0 [facility] Work Phone: Comment on above: PATIENT WAS FASTINGP ERFORMED BY: [facility] [address] [id number] BY: CB [facility] Gknosv6926 [address] [employer] [facility] & Cloud ServicesFormerly [facility] [id number] BY: [facility] PRN2793 [facility] [id number] Neutrophils/100 WBC (Bld) 55 % Normal 40-74 [facility] Medicine Work Phone: Comment on above: PATIENT WAS FASTINGP ERFORMED BY: BN [facility] [address] [id number] BY: CB [facility] Zftszh2455 [address] [employer] & Cloud ServicesDublin [place] [id number] BY: [facility] TCS3428 [facility] [id number] Platelets #/vol (Bld) 234 {x10E3/uL} Normal 150-379 [facility] Medicine Work Phone: Comment on above: PATIENT WAS FASTINGP ERFORMED BY: [employer] [facility] [address] [id number] BY: AFRICA [facility] Zmnfxd4674 [address] RoadDublin [place] [id number] BY: TG [facility] GYU4681 [facility] [id number] RBC #/vol (Bld) 4.98 {x10E6/uL} Normal 4.14-5.[address] [facility] Work Phone: Comment on above: PATIENT WAS FASTINGP ERFORMED BY: [employer] [facility] [address] [id number] BY: AFRICA [facility] Ahwvnq4175 Bar[address] RoadFormerly [facility] [id number] BY: TG [facility] KWJ4037 [facility] [id number] WBC #/vol (Bld) 6.6 {x10E3/uL} Normal 3.4-10.8 Compr ensive Internal Medicine Work Phone: Comment on above: PATIENT WAS FASTINGP ERFORMED BY: [employer] LabMoleculinrp [address] [id number] BY: AFRICA [facility] Vgrpeg0654 [facility] [id number] BY: [facility] EFL3841 [facility] [id number] Comp. Metabolic Panel (14)Or dered By: Activity Specialist on 11-20-2013 Albumin mass conc 4.6 g/dL Normal 3.5-5.5 Compreh [facility] centerive Internal Medicine Work Phone: Comment on above: PATIENT WAS FASTINGP ERFORMED BY: [facility] [address] [id number] BY: CB [facility] Dcrypf9647 [facility]Cr[facility] [id number] BY: TG [facility] SLN6416 [facility] [id number] Albumin/Globulin mass ratio 2.7 {ratio} Abnormal 1.1-2.5 [facility] Internal Medicine Work Phone: Comment on above: PATIENT WAS FASTINGP ERFORMED BY: Flipboard[address] [id number] BY: [facility] Giozja4876 [address] RoadDublin [place] [id number] BY: [facility] VTV3010 [facility] [id number] ALP enzyme act/vol 39 [iU]/L Normal 39-117 [facility] Internal Medicine Work Phone: Comment on above: PATIENT WAS FASTINGP ERFORMED BY: Flipboard[address] [id number] BY: [facility] Yeuwuw5440 [address] RoadDuin [place] [id number] BY: Lab[facility] NVE4812 [facility] [id number] ALT enzyme act/vol 50 [iU]/L Abnormal 0-44 [facility] Internal Medicine Work Phone: Comment on above: PATIENT WAS FASTINGP ERFORMED BY: Flipboard[address] [id number] BY: [facility] Fzwutq7830 [address] RoadDublin [place] [id number] BY: [facility] UFB8004 [facility] [id number] AST enzyme act/vol 33 [iU]/L Normal 0-40 [facility] Internal Medicine Work Phone: Comment on above: PATIENT WAS FASTINGP ERFORMED BY: Flipboard[address] [id number] BY: [facility] Dxbgsd6267 [address] RoadDublin [place] [id number] BY: [facility] ZKN3908 [facility] [id number] Bilirubin mass conc 0.5 mg/dL Normal 0.0-1.2 Compr ehensive Internal Medicine Work Phone: Comment on above: PATIENT WAS FASTINGP ERFORMED BY: BN [facility] [address] [id number] BY: AFRICA [facility] Iklguu3811 [address] RoadDublin [place] [id number] BY: TG [facility] MIA0789 [facility] [id number] Calcium mass conc 9.6 mg/dL Normal 8.7-10.2 Compreh ensive Internal Medicine Work Phone: Comment on above: PATIENT WAS FASTINGP ERFORMED BY: BN [facility] Oleaiboils[address] [id number] BY: AFRICA [facility] Pohcub6728 [address] RoadDuin [place] [id number] BY: TG [facility] NFF0317 [facility] [id number] Chloride molar conc 98 mmol/L Normal 97-108 Compr ehensive Internal Medicine Work Phone: Comment on above: PATIENT WAS FASTINGP ERFORMED BY: [facility] [address] [id number] BY: AFRICA [facility] Uzhqvm3665 [address] [place] [id number] BY: [facility] JBR1595 [facility] [id number] CO2 molar conc 22 mmol/L Normal 18-29 Comprehens chalo Internal Medicine Work Phone: Comment on above: PATIENT WAS FASTINGP ERFORMED BY: BN [facility] [address] [id number] BY: CB [facility] Ojzcmp2[address] [place] [id number] BY: [facility] ZXZ2355 [facility] [id number] Creatinine mass conc 0.87 mg/dL Normal 0.76-1.[address] [facility] Work Phone: Comment on above: PATIENT WAS FASTINGP ERFORMED BY: BN [facility] Oqsxwlasdu[address] [id number] BY: AFRICA [facility] Dzkvhr7493 [address] [facility] [place] [id number] BY: [facility] IKT3815 Nikolas [facility] [id number] GFR/1.73 sq M predicted among blacks CKD-EPI vol rate/area (S/P/Bld) 119 mL/min/1.73 Normal [facility] Work Phone: Comment on above: PATIENT WAS FASTINGP ERFORMED BY: BN [facility] Jcuafetrxs01[address] [id number] BY: AFRICA [facility] Jwtkhy9813 [facility] [id number] BY: TG [facility] QPD4574 [facility] [id number] GFR/1.73 sq M predicted among non-blacks CKD-EPI vol rate/area (S/P/Bld) 103 mL/min/1.73 Normal Comprehensiv e Internal Medicine Work Phone: Comment on above: PATIENT WAS FASTINGP ERFORMED BY: BN [facility] Vclpgoaiov549[address] [id number] BY: AFRICA [facility] Mowdnv8804 [facility] [id number] BY: TG [facility] UNF7892 [facility] [id number] Globulin mass conc (S) 1.7 g/dL Normal 1.5-4.5 Co mprehensive Internal Medicine Work Phone: Comment on above: PATIENT WAS FASTINGP ERFORMED BY: [facility] [address] [id number] BY: CB [facility] Zsqafq7674 [facility] [id number] BY: [facility] GXM2167 [facility] [id number] Glucose mass conc 98 mg/dL Normal 65-99 Compreh ensive Internal Medicine Work Phone: Comment on above: PATIENT WAS FASTINGP ERFORMED BY: BN [facility] Ejhglzaths38[address] [id number] BY: AFRICA [facility] Sfclfo1866 [facility] [id number] BY: TG [facility] GBZ7208 [facility] [id number] Potassium molar conc 4.3 mmol/L Normal 3.5-5.2 Comp rehensive Internal Medicine Work Phone: Comment on above: PATIENT WAS FASTINGP ERFORMED BY: BN [facility] Xyivaytofr357[address] [id number] BY: AFRICA [facility] Jefkux8273 [facility] [id number] BY: TG [facility] XAJ4714 [facility] [id number] Protein mass conc 6.3 g/dL Normal 6.0-8.5 Compreh ensive Internal Medicine Work Phone: Comment on above: PATIENT WAS FASTINGP ERFORMED BY: BN [facility] Peoufuhpmg05[address] [id number] BY: AFRICA [facility] Zazqqo1501 [facility] [id number] BY: TG [facility] LRE9875 [facility] [id number] Sodium molar conc 137 mmol/L Normal 134-144 Compreh ensive Internal Medicine Work Phone: Comment on above: PATIENT WAS FASTINGP ERFORMED BY: BN [facility] Jehqfjctjh59[address] [id number] BY: CB [facility] Fuoqoj5037 [facility] [place] [id number] BY: [facility] TTM1418 [facility] [id number] Urea nitrogen mass conc 17 mg/dL Normal 6-24 [facility] Work Phone: Comment on above: PATIENT WAS FASTINGP ERFORMED BY: BN [facility] Dudtmamvdu9723[address] [id number] BY: Flipboard Zuqklz0053 [facility] [id number] BY: Flip[employer] YFR1343 Nikolas [facility] [id number] Urea nitrogen/Creatinine mass ratio 20 mg/mg Normal 9-20 [facility] Work Phone: Comment on above: PATIENT WAS FASTINGP ERFORMED BY: Flipboard[address] [id number] BY: [facility] Pacybv2444 [facility] [id number] BY: Flip[employer] WPL0355 [facility] [id number] Factor II ActivityOrdered By : Activity Specialist on 11-20-2013 Prothrombin activity actual/normal Coag RelTime (PPP) 110 % Normal 75-130 [facility] Work Phone: Comment on above: PATIENT WAS FASTINGP ERFORMED BY: LabMoleculin[address] [id number] BY: LabMoleculinJFK Medical CenterNrfwlg1071 [facility] [id number] BY: Flipboard QLG9328 Nikolas [facility] [id number] Factor V Leiden MutationOrde red By: Activity Specialist on 11-20-2013 F5 gene targeted mutation [facility] (Bld/Tiss) FVNEG3 Normal Comprehens chalo Internal Medicine Work Phone: Comment on above: Result: Negative (no mutation found) .Factor V Leiden is a specific mutation (R506Q) in the factorV gene that is associated with an increased risk of venousthrombosis. Factor V Leiden is more resistant toinactivation by activated protein C. As a result, factor Vpersists in the circulation leading to a mild hyper-coagulable state. The Leiden mutation accounts for 90% -95% of APC resistance. Factor V Leiden has been reported inpatients with deep vein thrombosis, pulmonary embolus,central retinal vein occlusion, cerebral sinus thrombosisand hepatic vein thrombosis. Other risk factors to beconsidered in the workup for venous thrombosis include [id number] mutation in the factor II (prothrombin) gene,protein S and C deficiency, and antithrombin deficiencies.Anticardiolipin antibody and lupus anticoagulant analysismay be appropriate for certain patients, as well ashomocysteine levels. .Contact your local [facility] for information on how to orderadditional testing if desired. .Genetic counselors are available for health care providers to discuss results at [phone] ([phone]). .Methodology:DNA analysis of the Factor V gene was performed by allele-specific PCR followed by gel electrophoresis. The diagnosticsensitivity and specificity is >99% for both. Molecular-based testing is highly accurate, but as in any laboratorytest, diagnostic errors may occur. All test results must becombined with clinical information for the most accurateinterpretation. .References:Que Gonzales (1995). Clin Lab Med 16:169-186. .Juan Diego Valenzuela, PhDJesica Gayle, Rani Oconnor, PhDRosa Caceres, PhDSofiya Redman, PhDRolo Mcgee MD, PhDS TRESSA Olsen, PhD . PATIENT WAS FASTINGP ERFORMED BY: Vaxxaston[address] [place] [address] [id number] BY: FlipboardJFK Medical CenterOeztls9693 [facility] [id number] BY: Flipboard BTT4390 [facility] [id number] Lipid Panel With LDL/HDL Rat ioOrdered By: Activity Specialist on 11-20-2013 Cholesterol in HDL mass conc 61 mg/dL Normal [facility] Work Phone: Comment on above: According to ATP-III Guidelines, HDL-C >59 mg/dL is considered anegative risk factor for CHD. PATIENT WAS FASTINGP ERFORMED BY: Flipboard Edcbmzajwz6[address] [id number] BY: FlipboardJFK Medical CenterYfjjhj4606 [facility] [id number] BY: Flipboard WCZ1833 [facility] [id number] Cholesterol in LDL mass conc 99 mg/dL Normal 0-99 [facility] Work Phone: Comment on above: PATIENT WAS FASTINGP ERFORMED BY: BN [facility] Klqgotexep6742 [facility] [id number] BY: CB [facility] Spleni5996 [facility] [id number] BY: TG [facility] GRM3887 [facility] [id number] Cholesterol in LDL/Cholesterol in HDL mass ratio 1.6 {ratio_units} Normal 0.0-3.6 [facility] Work Phone: Comment on above: PATIENT WAS FASTINGP ERFORMED BY: BN [facility] Ocxyfaxzxn8589 [facility] [id number] BY: CB [facility] Ccykrb9898 [facility] [id number] BY: TG [facility] MRW4798 [facility] [id number] Cholesterol in VLDL mass conc 31 mg/dL Normal 5-40 [facility] Work Phone: Comment on above: PATIENT WAS FASTINGP ERFORMED BY: BN [facility] Gqsnmqnzzk364[address] [id number] BY: CB [facility] Ujpbbn1777 [facility] [id number] BY: TG [facility] TLV4039 [facility] [id number] Cholesterol mass conc 191 mg/dL Normal 100-199 [facility] Internal Medicine Work Phone: Comment on above: PATIENT WAS FASTINGP ERFORMED BY: BN [facility] Rmwxffwvdk355[address] [id number] BY: CB [facility] Rehzcc3291 [facility] [id number] BY: TG [facility] YCZ6032 [facility] [id number] Triglyceride mass conc 157 mg/dL Abnormal 0-149 Co [facility] Internal Medicine Work Phone: Comment on above: PATIENT WAS FASTINGP ERFORMED BY: BN [facility] Ioebbxpfkj0632[address] [place] [address] [id number] BY: TerraSky6370 [facility] [id number] BY: [employer] CHV3969 [facility] [id number] Lupus Anticoagulant CompOrde red By: Activity Specialist on 11-20-2013 aPTT.lupus sensitive Coag time (PPP) 40.3 {sec} Normal 0.0-50.0 [facility] Internal Medicine Work Phone: Comment on above: PATIENT WAS FASTINGP ERFORMED BY: Zmanda [address] [id number] BY: TerraSky6370 [facility] [id number] BY: [employer] JKL8082 [facility] [id number] dRVVT Coag time (PPP) 28.5 {sec} Normal 0.0-55.1 [facility] Internal Medicine Work Phone: Comment on above: PATIENT WAS FASTINGP ERFORMED BY: Zmanda [address] [id number] BY: [employer] Oixmdr0492 [facility] [id number] BY: [employer] WFW3568 [facility] [id number] Lupus anticoagulant neutralization dilute phospholipid [Time] in Platelet poor plasma 37.4 {sec} Normal 0.0-55.0 [facility] Internal Medicine Work Phone: Comment on above: PATIENT WAS FASTINGP ERFORMED BY: Zmanda [address] [id number] BY: SecureAuthlin6370 [facility] [id number] BY: [employer] POR9653 [facility] [id number] Lupus anticoagulant neutralization dilute phospholipid/Lupus anticoagulant neutralization.high phospholipid [Ratio] in Platelet poor plasma by Coagulation assay 0.95 {Ratio} Normal 0.00-1.20 [facility] Internal Medicine Work Phone: Comment on above: PATIENT WAS FASTINGP ERFORMED BY: DLS[address] [id number] BY: AFRICA Neofonie6370 [facility] [id number] BY: [employer] EYG0077 [facility] [id number] Lupus anticoagulant two screening tests W Reflex Coag Interp (PPP) Comment: Normal [facility] Work Phone: Comment on above: No lupus anticoagula nt was detected. PATIENT WAS FASTINGP ERFORMED BY: DLS[address] [id number] BY: AFRICA Handmark70 [facility] [id number] BY: SpinTheCam BWK9618 [facility]GEISING[facility] [id number] Protein mass conc 37.4 {sec} Normal 0.0-55.0 Compreh ensive Internal Medicine Work Phone: Comment on above: PATIENT WAS FASTINGP ERFORMED BY: DLS[address] [id number] BY: AFRICA Neofonie6370 [facility] [id number] BY: [employer] SCY8704 [facility] [id number] Thrombin time Coag time (PPP) 15.9 {sec} Normal 0.0-20.0 [facility] Work Phone: Comment on above: PATIENT WAS FASTINGP ERFORMED BY: DLS[address] [id number] BY: SecureAuthlin6370 [facility] [id number] BY: [employer] SOS3203 [facility] [id number] PT and PTTOrdered By: Activity Specialist on 11-20-2013 aPTT Coag time (PPP) 27 {sec} Normal 24-33 Comp rehensive Internal Medicine Work Phone: Comment on above: This test has not be en validated for monitoring unfractionated heparintherapy. aPTT-based therapeutic ranges for unfractionated heparintherapy have not been established. For general guidelines onHeparin monitoring, refer to the [facility] Directory of Services. PATIENT WAS FASTINGP ERFORMED BY: Flipboard[address] [id number] BY: FlipboardJFK Medical CenterUitfye6344 [facility] [id number] BY: Flipboard HGQ3844 [facility] [id number] INR Coag RelTime (PPP) 1.0 {INR} Normal 0.8-1.2 [facility] Internal Medicine Work Phone: Comment on above: Reference interval i s for non-anticoagulated patients. . Suggested INR therapeutic range for Vitamin K antagonist therapy: Standard Dose (moderate intensity therapeutic range): 2.0 - 3.0 Higher intensity therapeutic range 2.5 - 3.5 PATIENT WAS FASTINGP ERFORMED BY: Flipboard[address] [id number] BY: Flipboard Jvqdkd3230 [facility] [id number] BY: [employer] CTT0469 [facility] [id number] Prothrombin time (PT) Coag time (PPP) 10.5 {sec} Normal 9.1-12.0 [facility] Internal Medicine Work Phone: Comment on above: PATIENT WAS FASTINGP ERFORMED BY: Flipboard[address] [id number] BY: FlipboardJFK Medical CenterJtlupb7352 [facility] [id number] BY: Flipboard RVU9989 [facility] [id number] Protein C Deficiency Profile Ordered By: Activity Specialist on 11-20-2013 Protein C actual/normal Coag RelTime (PPP) 148 % Normal 74-151 [facility] Internal Medicine Work Phone: Comment on above: PATIENT WAS FASTINGP ERFORMED BY: [employer] LabMoleculinrp [address] [id number] BY: CB [facility] Iucbvb2666 [facility] [id number] BY: [facility] PYF7604 [facility] [id number] Protein C Ag actual/normal IA RelMCnc (PPP) 105 % Normal 70-140 [facility] Work Phone: Comment on above: PATIENT WAS FASTINGP ERFORMED BY: [employer] LabMoleculinrp [address] [id number] BY: CB [facility] Svfaxg5029 [facility] [id number] BY: LabMoleculinrp RXC7529 [facility] [id number] Protein S PanelOrdered By: S ystem Staff Electronic Warfare Officer on 11-20-2013 Protein S actual/normal Coag RelTime (PPP) 114 % Normal 60-145 [facility] Work Phone: Comment on above: PATIENT WAS FASTINGP ERFORMED BY: LabMoleculinrp [address] [id number] BY: [facility] Zejssw1080 [facility] [id number] BY: [facility] RZB5938 [facility] [id number] Protein S Ag actual/normal IA RelMCnc (PPP) 109 % Normal 58-150 [facility] Work Phone: Comment on above: PATIENT WAS FASTINGP ERFORMED BY: LabMoleculinrp [address] [id number] BY: [facility] Boyddo0483 [facility] [id number] BY: [facility] ZEL8144 [facility] [id number] Protein S Free Ag actual/normal IA RelMCnc (PPP) >150 Abnormal 56-124 [facility] Work Phone: Comment on above: A deficiency of prot ein S (PS), either congenital or acquired,increases the risk of thromboembolism. Congenital deficiencies of PSare very rare; acquired PS deficiency is much more common. Acquireddeficiency can occur as the result of decreased PS synthesis orincreased consumption. PS synthesis can be diminished in a number ofconditions including anti-vitamin K (warfarin) therapy, vitamin Kdeficiency, severe liver disease, and malnutrition. PS levelsdecrease with normal . Levels may be spuriouslydecreased in individuals with Factor V Leiden. Levels may bedecreased in nephrotic syndrome, women on oral contraceptive/hormonereplacement therapy and in patients receiving chemotherapy orL-asparaginse therapy. PS consumption can occur duringdisseminated intravascular coagulation (DIC) and acute thrombosis.It has been suggested that repeat blood sampling and testing afterruling out acquired causes of deficiency should be performed beforethe patient is diagnosed with congenital Protein S deficiency. PATIENT WAS FASTINGP ERFORMED BY: DLSton1447 [facility] [id number] BY: AFRICA Neofonie6370 [facility] [id number] BY: [employer] ULY3590 [facility] [id number] Rheumatoid Arthritis FactorO rdered By: Activity Specialist on 11-20-2013 Rheumatoid factor Qn 10.3 {IU/mL} Normal 0.0-13.9 [facility] Internal Medicine Work Phone: Comment on above: PATIENT WAS FASTINGP ERFORMED BY: DLS[address] [id number] BY: SecureAuthlin6370 [facility] [id number] BY: [employer] JVM8639 [facility] [id number] Sedimentation Rate-Westergre nOrdered By: Activity Specialist on 11-20-2013 ESR Velocity (Bld) 2 mm/h Normal 0-15 [facility] Internal Medicine Work Phone: Comment on above: PATIENT WAS FASTINGP ERFORMED BY: DLS[address] [id number] BY: SecureAuthlin6370 [facility] [id number] BY: Flipboard VKP5599 [address] Connor DriveRTP [place] [id number] JODYD-UHUKTHKGCFW-ZIDIG (821 05)Ordered By: Activity Specialist on 08-13-2013 AFP.tumor marker mass conc 4.5 ng/mL Normal 0.0-8.3 [facility] Work Phone: Comment on above: Jonnathan ECLIA methodol ogy PATIENT WAS FASTINGP ERFORMED BY: [facility] Riuzfx4616 [facility] [id number] METABOLIC PANEL, COMPREHENSI VE (54914)Ordered By: Activity Specialist on 08-13-2013 Albumin mass conc 5.1 g/dL Normal 3.5-5.5 Compreh [facility] Internal Medicine Work Phone: Comment on above: PATIENT WAS FASTINGP ERFORMED BY: [facility] Bymmuj0349 [facility] [id number] Information: [id number] Albumin/Globulin mass ratio 2.7 {ratio} Abnormal 1.1-2.5 [facility] Work Phone: Comment on above: PATIENT WAS FASTINGP ERFORMED BY: [facility] Qiwxfo4976 [facility] [id number] Information: [id number],[id number] ALP [Catalytic activity/Vol] 49 U/L Normal 39-117 [facility]; [facility] Work Phone: ALP enzyme act/vol 49 [iU]/L Normal 39-117 [facility] Internal Medicine Work Phone: Comment on above: PATIENT WAS FASTINGP ERFORMED BY: [facility] Riibac2552 [facility] [id number] Information: [id number],[id number] ALT [Catalytic activity/Vol] 50 U/L Abnormal 0-44 [facility]; [facility] Work Phone: ALT enzyme act/vol 50 [iU]/L Abnormal 0-44 [facility] Internal Medicine Work Phone: Comment on above: PATIENT WAS FASTINGP ERFORMED BY: AFRICA [facility] Rdijon1859 [address] [facility] [place] [id number] Information: [id number],[id number] AST [Catalytic activity/Vol] 41 U/L Abnormal 0-40 [facility]; [facility] Work Phone: AST enzyme act/vol 41 [iU]/L Abnormal 0-40 Compre hensive Internal Medicine Work Phone: Comment on above: PATIENT WAS FASTINGP ERFORMED BY: [facility] Zeiplb7146 [address] [facility] [id number] Information: [id number],[id number] Bilirubin mass conc 0.6 mg/dL Normal 0.0-1.2 Compr ensive Internal Medicine Work Phone: Comment on above: PATIENT WAS FASTINGP ERFORMED BY: [facility]6370 [facility] [id number] Information: [id number],[id number] Calcium mass conc 10.2 mg/dL Normal 8.7-10.2 Compreh ensive Internal Medicine Work Phone: Comment on above: PATIENT WAS FASTINGP ERFORMED BY: [facility] Pyaxcc0131 [facility] [id number] Information: 209245,[id number] Chloride molar conc 99 mmol/L Normal 97-108 Compr ehensive Internal Medicine Work Phone: Comment on above: PATIENT WAS FASTINGP ERFORMED BY: [facility] Rlibea3420 [address] [facility] [id number] Information: [id number],[id number] CO2 molar conc 24 mmol/L Normal 19-28 Comprehens chalo Internal Medicine Work Phone: Comment on above: PATIENT WAS FASTINGP ERFORMED BY: [facility] Etimgq0217 [facility] [id number] Information: [id number] Creatinine mass conc 0.98 mg/dL Normal 0.76-1.27 Comp rehensive Internal Medicine Work Phone: Comment on above: PATIENT WAS FASTINGP ERFORMED BY: [facility] Jrnomc4731 [address] [facility] [id number] Information: [id number],[id number] GFR/1.73 sq M predicted among blacks CKD-EPI vol rate/area (S/P/Bld) 106 mL/min/1.73 Normal [facility] Work Phone: Comment on above: PATIENT WAS FASTINGP ERFORMED BY: CB [facility] Hcpmwg8968 [facility] [id number] Information: 989767,Q84325 GFR/1.73 sq M predicted among non-blacks CKD-EPI vol rate/area (S/P/Bld) 92 mL/min/1.73 Normal Comprehensiv e Internal Medicine Work Phone: Comment on above: PATIENT WAS FASTINGP ERFORMED BY: [facility] Hjfejg2013 [facility] [id number] Information: [id number],[id number] Globulin mass conc (S) 1.9 g/dL Normal 1.5-4.5 Co mprehensive Internal Medicine Work Phone: Comment on above: PATIENT WAS FASTINGP ERFORMED BY: [facility] Ijgsgj7887 [facility] [id number] Information: 786965,[id number] Glucose mass conc 95 mg/dL Normal 65-99 Compreh ensive Internal Medicine Work Phone: Comment on above: PATIENT WAS FASTINGP ERFORMED BY: [facility] Iceiue0804 [facility] [id number] Information: 608318,[id number] Potassium molar conc 4.7 mmol/L Normal 3.5-5.2 Comp rehensive Internal Medicine Work Phone: Comment on above: PATIENT WAS FASTINGP ERFORMED BY: [facility] Qpxvau7744 [facility] [id number] Information: [id number] Protein mass conc 7.0 g/dL Normal 6.0-8.5 Compreh ensive Internal Medicine Work Phone: Comment on above: PATIENT WAS FASTINGP ERFORMED BY: AFRICA [facility] Ouiojg8000 [address] [facility] [place] [id number] Information: 267361,[id number] Sodium molar conc 138 mmol/L Normal 134-144 Compreh ensive Internal Medicine Work Phone: Comment on above: PATIENT WAS FASTINGP ERFORMED BY: [facility] Cprpny7702 [address] Roadblin [place] [id number] Information: [id number] Urea nitrogen mass conc 15 mg/dL Normal 6-24 [facility] Work Phone: Comment on above: PATIENT WAS FASTINGP ERFORMED BY: [facility] Urqoye6474 [address] [facility] HospitalblFlag[facility] [id number] Information: 295016,Y10558 Urea nitrogen/Creatinine mass ratio 15 mg/mg Normal 9-20 [facility] Work Phone: Comment on above: PATIENT WAS FASTINGP ERFORMED BY: [facility] [id number] [address] [facility] [id number] Information: [id number] PSA (PROSTATE SPECIFIC ANTIG EN) (V76.44)Ordered By: Activity Specialist on 08-13-2013 Prostate specific Ag mass conc 0.4 ng/mL Normal 0.0-4.0 [facility] Work Phone: Comment on above: Jonnathan ECLIA methodol ogy. .According to the [employer], Serum PSA shoulddecrease and remain at undetectable levels after radicalprostatectomy. The AUA defines biochemical recurrence as an initialPSA value 0.2 ng/mL or greater followed by a subsequent confirmatoryPSA value 0.2 ng/mL or greater.Values obtained with different assay methods or kits cannot be usedinterchangeably. Results cannot be interpreted as absolute evidenceof the presence or absence of malignant disease. PATIENT WAS FASTINGP ERFORMED BY: [facility] [id number] [address] [facility] [place] [id number] PT (Prothrobim Time) ([id number]) Ordered By: Activity Specialist on 08-13-2013 INR Coag RelTime (PPP) 1.1 {INR} Normal 0.8-1.2 [facility] Internal Medicine Work Phone: Comment on above: Reference interval i s for non-anticoagulated patients. . Suggested INR therapeutic range for Vitamin K antagonist therapy: Standard Dose (moderate intensity therapeutic range): 2.0 - 3.0 Higher intensity therapeutic range 2.5 - 3.5 PATIENT WAS FASTINGP ERFORMED BY: [employer] [id number] [facility] [id number] Prothrombin time (PT) Coag time (PPP) 11.0 {sec} Normal 9.1-12.0 [facility] Work Phone: Comment on above: PATIENT WAS FASTINGP ERFORMED BY: [employer] [id number] [facility] [id number] PT Coag (PPP) [Time] 11.0 s Normal 9.1-12.0 [facility] Internal Medicine; [facility] Internal Medicine Work Phone: PTT (Activated Partial Throm boplastin Time) ([id number])Ordered By: Activity Specialist on 08-13-2013 aPTT Coag (PPP) [Time] 27 s Normal 24-33 [facility] Internal Medicine; [facility] Internal Medicine Work Phone: aPTT Coag time (PPP) 27 {sec} Normal 24-33 [facility] Internal Medicine Work Phone: Comment on above: This test has not be en validated for monitoring unfractionated heparintherapy. aPTT-based therapeutic ranges for unfractionated heparintherapy have not been established. For general guidelines onHeparin monitoring, refer to the [facility] Directory of Services. PATIENT WAS FASTINGP ERFORMED BY: [facility]6370 [facility] [id number] AFPTOrdered By: System Manag er on 07-18-2013 AFPT 4.3 ng/mL Normal 0.0-8.3 [facility] Internal Medicine Work Phone: Comment on above: Jonnathan ECLIA methodol ogy Is Patient ? N CMPOrdered By: System Manage r on 07-17-2013 Albumin mass conc 4.5 g/dL Normal 3.4-5.0 Compreh ensive Internal Medicine Work Phone: Albumin/Globulin mass ratio 1.7 {RATIO} Normal 0.9-2.4 [facility] Internal Medicine Work Phone: ALP enzyme act/vol 56 U/L Normal 50-136 [facility] Internal Medicine Work Phone: ALT enzyme act/vol 151 U/L Abnormal 12-78 [facility] Internal Medicine Work Phone: AST enzyme act/vol 56 U/L Abnormal 15-37 [facility] Internal Medicine Work Phone: Bilirubin mass conc 0.70 mg/dL Normal 0.00-1.00 Compr [facility] Internal Medicine Work Phone: Calcium mass conc 9.4 mg/dL Normal 8.5-10.1 Compreh [facility] Internal Medicine Work Phone: Chloride molar conc 101 mmol/L Normal 98-107 Compr [facility] Internal Medicine Work Phone: CO2 molar conc 25.0 mmol/L Normal 21.0-32.0 Comprehen [facility] Internal Medicine Work Phone: Urea nitrogen mass conc 16 mg/dL Normal 7-18 [facility] Work Phone: Urea nitrogen/Creatinine mass ratio 20.0 {RATIO} Normal 10-20 [facility] Work Phone: CMP 135 mL/min Normal [facility] Work Phone: CMP 111 mL/min Normal [facility] Work Phone: CMP 86 mg/dL Normal 70-110 [facility] Work Phone: CMP 8 1 Normal 5-15 [facility] Work Phone: CMP 134 mmol/L Abnormal 136-145 [facility] Work Phone: CMP 0.8 mg/dL Normal 0.8-1.3 [facility] Work Phone: CMP 3.9 mmol/L Normal 3.5-5.1 [facility] Work Phone: CMP 2.6 g/dL Abnormal 2.7-4.2 [facility] Work Phone: CMP 7.1 g/dL Normal 6.4-8.2 [facility] Work Phone: LIPIDOrdered By: Bryan king on 07-17-2013 LIPID 119 mg/dL Normal 0-130 [facility] Work Phone: LIPID 127 mg/dL Normal 0-199 [facility] Work Phone: Comment on above: Serum Triglycerides Reference IntervalNormal <150 mg/dLBorderline high 150 - 199 mg/dLHigh 200 - 499 mg/dLVery High > or = 500 mg/dL LIPID 25 mg/dL Normal 5-40 [facility] Work Phone: LIPID 192 mg/dL Normal [facility] Work Phone: Comment on above: <200 mg/dL Desirable 200-240 mg/dL Borderline>240 mg/dL High Risk LIPID 48 mg/dL Normal [facility] Work Phone: Comment on above: Reference RangeHDL < 40 mg/dL Low HDL CholesterolHDL >or= 60 mg/dL High HDL Cholesterol URINE [place] ([id number])Ordered By: Activity Specialist on 03-07-2013 Bacteria identified Cx Nom (U) Final report Normal [facility] Work Phone: Comment on above: PATIENT NOT FASTINGP ERFORMED BY: [facility] [id number] Information: [id number] Bacteria identified Cx Nom (U) Escherichia coli Normal [facility] Work Phone: Comment on above: Greater than 100,000 colony forming units per mL PATIENT NOT FASTINGP ERFORMED BY: [facility] [id number] Information: [id number] Other Antibiotic [facility] [place] [place] [employer] [facility] prehensive Internal Medicine Work Phone: Comment on above: S = Susceptibl e; I = Intermediate; R = Resistant P = Positive; N = Negative MICS are expressed in micrograms per mL Antibiotic RSLT#1 RSLT#2 RSLT#3 RSLT#4Amoxicillin/Clavulanic Acid SAmpicillin SCefepime SCeftriaxone SCefuroxime SCephalothin SCiprofloxacin SErtapenem SGentamicin SImipenem SLevofloxacin SNitrofurantoin SPiperacillin STetracycline STobramycin STrimethoprim/Sulfa S PATIENT NOT FASTINGP ERFORMED BY: [facility] [id number] [address]rios RoadDublin [place] [id number] Information: [id number] Urinalysis, Office ([id number])Or dered By: Julia Villafana on 03-07-2013 Bilirubin Ql (U) Negative Normal Comprehe nsive [facility] Medicine Work Phone: Bilirubin Ql (U) Negative Normal Comprehe nsive Internal Medicine; [facility] Work Phone: Glucose Test strip (U) [Mass/Vol] Negative Normal [facility]; [facility] Work Phone: Glucose Test strip mass conc (U) Negative Normal [facility] Work Phone: Hemoglobin Ql (U) Hemolyzed Large Normal Co mprehensive [facility] Work Phone: Ketones Ql (U) Negative Normal Comprehens [facility] Work Phone: Ketones Ql (U) Negative Normal Comprehens [facility]; [facility] Work Phone: Leukocyte esterase Test strip Ql (U) Negative Normal [facility] Work Phone: Leukocyte esterase Test strip Ql (U) Negative Normal [facility]; [facility] Work Phone: Nitrite Ql (U) Negative Normal [facility] Work Phone: Nitrite Ql (U) Negative Normal [facility]; [facility] Work Phone: pH (U) 7.0 [pH] Normal [facility] Work Phone: Protein Ql (U) Trace Normal Comprehens [facility] Work Phone: Specific gravity Relative Density (U) 1.015 1 Normal Comprehensi ve Internal Medicine Work Phone: Urobilinogen mass/time (24H U) Normal Normal [facility] Work Phone: CBCMDOrdered By: System Syl king on 11-13-2012 CBCMD 43.5 fL Normal 35.1-43.9 [facility] Work Phone: CBCMD 4.5 3/uL Normal 2.0-7.7 [facility] Work Phone: CBCMD 47.2 % Normal 40-54 [facility] Work Phone: CBCMD 90.6 fL Normal 80-94 [facility] Work Phone: CBCMD 32.1 pg Abnormal 27.0-32.0 [facility] Work Phone: CBCMD 35.4 g/dL Normal 32-36 [facility] Work Phone: CBCMD 13.3 % Normal 11.6-14.6 [facility] Work Phone: CBCMD 208 K/mm3 Normal 150-450 [facility] Work Phone: CBCMD 9.5 fL Normal 6.2-12.0 [facility] Work Phone: CBCMD 60.7 % Normal 47-70 [facility] Work Phone: CBCMD 24.4 % Normal 19-41 [facility] Work Phone: CBCMD 10.2 % Abnormal 0-10 [facility] Work Phone: CBCMD 3.6 % Normal 0-5 [facility] Work Phone: CBCMD 0.7 % Normal 0-1 [facility] Work Phone: CBCMD 0.40 % Normal 0.0-0.9 [facility] Work Phone: Comment on above: IG% - Immature Granu locytes (promyelocytes, myelocytes,metamyelocytes) >1.0% indicates that a LEFT SHIFT ispresent. CBCMD 7.4 {k/mm3} Normal 4.4-11.0 [facility] Work Phone: CBCMD 5.21 {M/mm3} Normal 4.6-6.2 Comprehensiv e [facility] Work Phone: CBCMD 16.7 g/dL Abnormal 13.0-16.5 [facility] Work Phone: CMPOrdered By: System Manage r on 11-13-2012 CMP 7.3 g/dL Normal 6.4-8.2 [facility] Work Phone: CMP 38 U/L Abnormal 15-37 [facility] Work Phone: CMP 17.3 {RATIO} Normal 10-20 Comprehensiv e [facility] Work Phone: CMP 1.9 {RATIO} Normal 0.9-2.4 [facility] Work Phone: CMP 139 mmol/L Normal 136-145 [facility] Work Phone: CMP 93 mL/min Normal [facility] Work Phone: CMP 77 mL/min Normal [facility] Work Phone: CMP 28.0 mmol/L Normal 21.0-32.0 [facility] Work Phone: CMP 8 1 Normal 5-15 [facility] Work Phone: CMP 103 mmol/L Normal 98-107 [facility] Work Phone: CMP 1.1 mg/dL Normal 0.8-1.3 [facility] Work Phone: CMP 19 mg/dL Abnormal 7-18 [facility] Work Phone: CMP 100 mg/dL Normal 70-110 [facility] Work Phone: CMP 9.2 mg/dL Normal 8.5-10.1 [facility] Work Phone: CMP 0.50 mg/dL Normal 0.00-1.00 [facility] Work Phone: CMP 4.6 mmol/L Normal 3.5-5.1 [facility] Work Phone: CMP 80 U/L Abnormal 12-78 [facility] Work Phone: CMP 2.5 g/dL Abnormal 2.7-4.2 [facility] Work Phone: CMP 4.8 g/dL Normal 3.4-5.0 [facility] Work Phone: CMP 48 U/L Abnormal 50-136 [facility] Work Phone: LIPIDOrdered By: System [employer] christine on 11-13-2012 LIPID 225 mg/dL Abnormal [facility] Work Phone: Comment on above: Serum Triglycerides Reference IntervalNormal <150 mg/dLBorderline high 150 - 199 mg/dLHigh 200 - 499 mg/dLVery High > or = 500 mg/dL LIPID 45 mg/dL Abnormal 5-40 [facility] Work Phone: LIPID 122 mg/dL Normal 0-130 [facility] Work Phone: LIPID 70 mg/dL Normal [facility] Work Phone: Comment on above: Reference RangeHDL < 40 mg/dL Low HDL CholesterolHDL >or= 60 mg/dL High HDL Cholesterol LIPID 237 mg/dL Abnormal [facility] Work Phone: Comment on above: <200 mg/dL Desirable 200-240 mg/dL Borderline>240 mg/dL High Risk UACOrdered By: System Expan r on 11-13-2012 UAC Yellow Normal [facility] Work Phone: UAC Clear Normal [facility] Work Phone: UAC Normal Normal [facility] Work Phone: UAC Negative Normal [facility] Work Phone: UAC 1.005 1 Normal 1.002-1.03 0 [facility] Work Phone: UAC 6.5 1 Normal 5.0 - 8.0 [facility] Work Phone: UAC 25 /ul Abnormal [facility] Work Phone: UAC 0-5 SEEN Normal 0-5 [facility] Work Phone: UAC 0 SEEN Normal 0-5 [facility] Work Phone: CBCMDOrdered By: Bryan king on 07-04-2012 CBCMD 9.4 {k/mm3} Normal 4.4-11.0 [facility] Work Phone: CBCMD 14.1 % Abnormal 0-10 [facility] Work Phone: CBCMD 41.5 fL Normal 35.1-43.9 [facility] Work Phone: CBCMD 2.0 % Normal 0-5 [facility] Work Phone: CBCMD 0.4 % Normal 0-1 [facility] Work Phone: CBCMD 5.10 {M/mm3} Normal 4.6-6.2 Comprehensiv e [facility] Work Phone: CBCMD 15.8 g/dL Normal 13.0-16.5 [facility] Work Phone: CBCMD 6.2 3/uL Normal 2.0-7.7 [facility] Work Phone: CBCMD 239 K/mm3 Normal 150-450 [facility] Work Phone: CBCMD 44.6 % Normal 40-54 [facility] Work Phone: CBCMD 87.5 fL Normal 80-94 [facility] Work Phone: CBCMD 31.0 pg Normal 27.0-32.0 [facility] Work Phone: CBCMD 9.5 fL Normal 6.2-12.0 [facility] Work Phone: CBCMD 35.4 g/dL Normal 32-36 [facility] Work Phone: CBCMD 66.2 % Normal 47-70 [facility] Work Phone: CBCMD 13.3 % Normal 11.6-14.6 [facility] Work Phone: CBCMD 17.0 % Abnormal 19-41 [facility] Work Phone: CBCMD 0.30 % Abnormal 0.0-0.0 [facility] Work Phone: CHEST, PA AND LATERALOrdered By: Activity Specialist on 07-04-2012 CHEST, PA AND LATERAL See Note Normal Com prehensive [facility] Work Phone: Comment on above: PROCEDURE: X-RAY [facility] REASON FOR EXAM: Male, 46 years old. Cough. TECHNIQUE: PA and lateral views of the chest. COMPARISON: Comparison is made with prior examination dated December. FINDINGS: The lungs are expanded. 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 There is nodemonstrated pleural abnormality. Normal heart and pericardium. Normal mediastinum and jordon. Normal visualized pulmonary arteries.Normalvisualized aortic arch and descending thoracic aorta. Normal visualized thoracic spine. Normal visualized ribs, clavicles, andshoulders. There is no demonstrated abnormality of the visualized soft tissuestructures of the upper abdomen. IMPRESSION:No acute abnormality is seen. There has been no change since priorstudy. Signed:Wild Bell M.D.July 04, 2012 at 12:47:39 PM [id number] Signed GP/GP If you are the referring physician and would like to consult with theradiologist who provided this interpretation, please contact Goyo Chavez at [phone]. If this radiologist is unavailable, youwill be directed to another radiologist to assist. If you are a patient with a question regarding this report, pleasecontactyour referring physician directly. Professional Interpretation Provided By: [employer], Phone , These documents contain legally protected and confidential healthinformation intended only for the use of the individual or entity namedabove. If you are not the intended recipient, you are hereby notifiedthatany disclosure, copying, distribution, or other use of these documents isstrictly prohibited. If you have received this information in error,pleasenotify the sender immediately and arrange for the return or destructionofthese documents. Dictated on 07/04/12 0732 by Arabella RAMÍREZ,MaidrieleTranscribed on 07/04/12 1248 by ITS IMPORTSign by Arabella RAMÍREZ,Wild on 07/04/12 1249 Sign by: Wild Bell MD CMPOrdered By: System Manage r on 07-04-2012 CMP 99 mg/dL Normal 70-110 [facility] Work Phone: CMP 15 mg/dL Normal 7-18 [facility] Work Phone: CMP 1.0 mg/dL Normal 0.8-1.3 [facility] Work Phone: CMP 86 mL/min Normal [facility] Work Phone: CMP 15.0 {RATIO} Normal 10-20 Comprehensiv e [facility] Work Phone: CMP 7.2 g/dL Normal 6.4-8.2 [facility] Work Phone: CMP 4.6 g/dL Normal 3.4-5.0 [facility] Work Phone: CMP 2.6 g/dL Abnormal 2.7-4.2 [facility] Work Phone: CMP 1.8 {RATIO} Normal 0.9-2.4 [facility] Work Phone: CMP 9.0 mg/dL Normal 8.5-10.1 [facility] Work Phone: CMP 45 U/L Abnormal 15-37 [facility] Work Phone: CMP 44 U/L Abnormal 50-136 [facility] Work Phone: CMP 98 U/L Abnormal 12-78 [facility] Work Phone: CMP 0.50 mg/dL Normal 0.00-1.00 [facility] Work Phone: CMP 136 mmol/L Normal 136-145 [facility] Work Phone: CMP 4.2 mmol/L Normal 3.5-5.1 [facility] Work Phone: CMP 103 mmol/L Normal 98-107 [facility] Work Phone: CMP 104 mL/min Normal [facility] Work Phone: CMP 24.0 mmol/L Normal 21.0-32.0 [facility] Work Phone: CMP 9 1 Normal 5-15 [facility] Work Phone: LIPIDOrdered By: System Syl christine on 07-04-2012 LIPID 179 mg/dL Normal [facility] Work Phone: Comment on above: Serum Triglycerides Reference IntervalNormal <150 mg/dLBorderline high 150 - 199 mg/dLHigh 200 - 499 mg/dLVery High > or = 500 mg/dL LIPID 59 mg/dL Normal [facility] Work Phone: Comment on above: Reference RangeHDL < 40 mg/dL Low HDL CholesterolHDL >or= 60 mg/dL High HDL Cholesterol LIPID 118 mg/dL Normal 0-130 [facility] Work Phone: LIPID 36 mg/dL Normal 5-40 [facility] Work Phone: LIPID 213 mg/dL Abnormal [facility] Work Phone: Comment on above: <200 mg/dL Desirable 200-240 mg/dL Borderline>240 mg/dL High Risk UACOrdered By: System Expan r on 07-04-2012 UAC Negative Normal [facility] Work Phone: UAC Yellow Normal [facility] Work Phone: UAC Clear Normal [facility] Work Phone: UAC Normal Normal [facility] Work Phone: UAC 0 SEEN Normal 0-5 [facility] Work Phone: UAC 0-5 SEEN Normal 0-5 [facility] Work Phone: UAC 1.010 1 Normal 1.002-1.03 0 [facility] Work Phone: UAC 7 1 Normal 5.0 - 8.0 [facility] Work Phone: LIVEROrdered By: System Syl christine on 05-24-2012 Albumin mass conc 4.2 g/dL Normal 3.4-5.0 Compreh ensive Internal Medicine Work Phone: ALP enzyme act/vol 41 U/L Abnormal 50-[address] [facility] Internal Medicine Work Phone: ALT enzyme act/vol 67 U/L Normal 12-[address] [facility] Internal Medicine Work Phone: AST enzyme act/vol 32 U/L Normal 15-[address] [facility] Internal Medicine Work Phone: Bilirubin mass conc 0.60 mg/dL Normal 0.00-1.00 Compr ensive [facility] Medicine Work Phone: Protein mass conc 6.9 g/dL Normal 6.4-8.2 Compreh ensive [facility] Work Phone: LIVER 0.15 mg/dL Normal 0.00-0.30 [facility] Work Phone: AFPTOrdered By: System Manag er on 01-17-2012 AFPT 4.0 ng/mL Normal 0.0-8.3 [facility] Work Phone: Comment on above: Jonnathan ECLIA methodol ogyPerformed at: CB - [facility] [address] [id number] Director: Cammy Tracey MD, Phone: [phone] CMPOrdered By: System Manage r on 01-17-2012 Albumin mass conc 4.4 g/dL Normal 3.4-5.0 Compreh ensive [facility] Work Phone: Albumin/Globulin mass ratio 1.8 {RATIO} Normal 0.9-2.4 [facility] Work Phone: ALP enzyme act/vol 41 U/L Abnormal 50-[facility] Work Phone: ALT enzyme act/vol 121 U/L Abnormal 12-78 [facility] Work Phone: Anion gap molar conc 8 mmol/L Normal 5-15 Comp rehensive [facility] Medicine Work Phone: AST enzyme act/vol 62 U/L Abnormal 15-37 Compre hensive [facility] Medicine Work Phone: Bilirubin mass conc 0.50 mg/dL Normal 0.00-1.00 Compr ehensive [facility] Medicine Work Phone: Calcium mass conc 8.9 mg/dL Normal 8.5-10.1 Compreh ensive [facility] Work Phone: Chloride molar conc 102 mmol/L Normal 98-107 Compr ehensive [facility] Medicine Work Phone: CO2 molar conc 27.0 mmol/L Normal 21.0-32.0 Comprehen sive [facility] Medicine Work Phone: Creatinine mass conc 0.9 mg/dL Normal 0.8-1.3 Comp rehensive [facility] Work Phone: GFR/1.73 sq M predicted among blacks MDRD vol rate/area (S/P/Bld) 118 mL/min/{1.73_m2} Normal Comprehensi ve Internal Medicine Work Phone: GFR/1.73 sq M.predicted MDRD (S/P/Bld) [Vol rate/Area] 97 mL/min/{1.73_m2} Normal Comprehensiv e [facility] Work Phone: GFR/1.73 sq M.predicted MDRD vol rate/area 97 mL/min/{1.73_m2} Normal Comprehensiv e [facility] Work Phone: Globulin mass conc (S) 2.4 g/dL Abnormal 2.7-4.2 Co mprehensive [facility] Work Phone: Glucose mass conc 96 mg/dL Normal 70-110 Compreh ensive [facility] Medicine Work Phone: Potassium molar conc 4.0 mmol/L Normal 3.5-5.1 Comp rehensive [facility] Medicine Work Phone: Protein mass conc 6.8 g/dL Normal 6.4-8.2 Compreh ensive [facility] Work Phone: Sodium molar conc 137 mmol/L Normal 136-145 Compreh ensive [facility] Work Phone: Urea nitrogen mass conc 14 mg/dL Normal 7-18 [facility] Work Phone: Urea nitrogen/Creatinine mass ratio 15.6 {RATIO} Normal 10-20 [facility] Work Phone: LIPIDOrdered By: Bryan king on 01-17-2012 Cholesterol in HDL mass conc 57 mg/dL Normal [facility] Work Phone: Comment on above: Reference Range HDL <40 mg/dL Low HDL Cholesterol HDL >or= 60 mg/dL High HDL Cholesterol Cholesterol in LDL mass conc 91 mg/dL Normal 0-130 [facility] Work Phone: Cholesterol in VLDL mass conc 36 mg/dL Normal 5-40 [facility] Work Phone: Cholesterol mass conc 184 mg/dL Normal Com prehensive [facility] Work Phone: Comment on above: <200 mg/dL Desirable 200-240 mg/dL Borderline >240 mg/dL High Risk Triglyceride mass conc 182 mg/dL Normal Co mprehensive [facility] Work Phone: Comment on above: Serum Triglycerides Reference Interval Normal <150 mg/dL Borderline high 150 - 199 mg/dL High 200 - 499 mg/dL Very High > or = 500 mg/dL PTOrdered By: Activity Specialist on 01-17-2012 Prothrombin time (PT) Coag time (PPP) 13.2 s Normal 11.9-14.4 [facility] Work Phone: Prothrombin time (PT) Coag time (PPP) 1.1 s Normal [facility] Work Phone: PTTOrdered By: System Manage r on 01-17-2012 aPTT Coag time (Bld) 29.1 s Normal 24.1-36.2 Comp rehensive [facility] Work Phone: DORSAL SPINE,3 VIEWSOrdered By: Activity Specialist on 10-19-2011 DORSAL SPINE,3 VIEWS See Note Normal Comp rehensive [facility] Work Phone: Comment on above: PROCEDURE: X-RAY - T HORACIC SPINE REASON FOR EXAM: Male, 46 years old. One month history of back pain. TECHNIQUE: Four views of the thoracic spine were obtained. COMPARISON: None. FINDINGS:Normal visualized thoracic vertebrae. Normal disc space heights and vertebral endplates. Normal kyphosis. Normal visualized soft tissue structures. IMPRESSION:Normal plain film x-ray examination of the thoracic spine. Signed:Wild Bell M.D.October 19, 2011 at 3:39:11 PM [id number] Signed GP/GP If you are the referring physician and would like to consult with theradiologist who provided this interpretation, please contact Goyo Chavez at [phone]. If this radiologist is unavailable, youwill be directed to another radiologist to assist. If you are a patient with a question regarding this report, pleasecontactyour referring physician directly. Professional Interpretation Provided By: [employer], Phone , Dictated on 10/19/11 1220 by Arabella RAMÍREZ,Valerieranscribed on 10/20/11 0850 by ITS IMPORTSign by Wild Bell MD on 10/20/11 0851 Sign by: Wild Bell MD CBCMDOrdered By: Bryan king on 10-07-2011 Eosinophils/100 WBC (Bld) 2 % Normal 0-5 [facility] Work Phone: Erythrocyte distribution width Ratio (RBC) 13.5 % Normal 11.6-14.6 [facility] Work Phone: Hematocrit Volume Fraction (Bld) 43.9 % Normal 40-54 [facility] Work Phone: Hemoglobin mass conc (Bld) 15.6 g/dL Normal 14.0-18.0 [facility] Work Phone: MCH Entitic mass (RBC) 32.7 pg Abnormal 27.0-32.0 Co [facility] Work Phone: MCHC mass conc (RBC) 35.6 g/dL Normal 32-[address] [facility] Work Phone: MCV Entitic volume (RBC) 92.0 fL Normal 80-94 [facility] Work Phone: Neutrophils #/vol (Bld) 3.9 3/uL Normal 2.0-7.7 [facility] Work Phone: Platelets #/vol (Bld) 223 10*3/uL Normal 150-450 Co mprehensive [facility] Work Phone: RBC #/vol (Bld) 4.77 {M/mm3} Normal 4.6-6.2 Compreh ensive [facility] Work Phone: WBC #/vol (Bld) 7.0 10*3/uL Normal 4.4-11.0 Comprehe nsive [facility] Medicine Work Phone: CBCMD 65 % Normal 47-70 [facility] Work Phone: CBCMD 26 % Normal 19-41 [facility] Work Phone: CBCMD 7 % Normal 0-10 [facility] Work Phone: CBCMD ADEQUATE Normal [facility] Work Phone: CBCMD NORM C+C Normal [facility] Work Phone: CBCMD 100 1 Normal [facility] Work Phone: CMPOrdered By: System Manage r on 10-07-2011 Albumin mass conc 4.4 g/dL Normal 3.4-5.0 Compreh ensive [facility] Work Phone: Albumin/Globulin mass ratio 1.6 {RATIO} Normal 0.9-2.4 [facility] Work Phone: ALP enzyme act/vol 33 U/L Abnormal 50-136 Compre hensive [facility] Work Phone: ALT enzyme act/vol 75 U/L Normal 12-78 Compre hensive [facility] Work Phone: Anion gap molar conc 7 mmol/L Normal 5-15 Comp rehensive [facility] Work Phone: AST enzyme act/vol 36 U/L Normal 15-37 Compre hensive [facility] Work Phone: Bilirubin mass conc 0.70 mg/dL Normal 0.00-1.00 Compr ehensive [facility] Work Phone: Calcium mass conc 8.8 mg/dL Normal 8.5-10.1 Compreh ensive [facility] Work Phone: Chloride molar conc 103 mmol/L Normal 98-107 Compr ehensive [facility] Work Phone: CO2 molar conc 26.0 mmol/L Normal 21.0-32.0 Comprehen sive [facility] Work Phone: Creatinine mass conc 1.0 mg/dL Normal 0.8-1.3 Comp rehensive [facility] Work Phone: GFR/1.73 sq M predicted among blacks MDRD vol rate/area (S/P/Bld) 104 mL/min/{1.73_m2} Normal Comprehensi ve [facility] Medicine Work Phone: GFR/1.73 sq M.predicted MDRD (S/P/Bld) [Vol rate/Area] 86 mL/min/{1.73_m2} Normal Comprehensiv e [facility] Work Phone: GFR/1.73 sq M.predicted MDRD vol rate/area 86 mL/min/{1.73_m2} Normal Comprehensiv e [facility] Work Phone: Globulin mass conc (S) 2.7 g/dL Normal 2.7-4.2 Co mprehensive [facility] Work Phone: Glucose mass conc 86 mg/dL Normal 70-110 Compreh ensive [facility] Work Phone: Potassium molar conc 4.0 mmol/L Normal 3.5-5.1 Comp rehensive [facility] Work Phone: Protein mass conc 7.1 g/dL Normal 6.4-8.2 Compreh ensive [facility] Work Phone: Sodium molar conc 136 mmol/L Normal 136-145 Compreh ensive [facility] Work Phone: Urea nitrogen mass conc 14 mg/dL Normal 7-18 [facility] Work Phone: Urea nitrogen/Creatinine mass ratio 14.0 {RATIO} Normal 10-20 [facility] Work Phone: LIPIDOrdered By: .[employer] Syl king on 10-07-2011 Cholesterol in HDL mass conc 53 mg/dL Normal [facility] Work Phone: Comment on above: Reference Range HDL <40 mg/dL Low HDL Cholesterol HDL >or= 60 mg/dL High HDL Cholesterol Cholesterol in LDL mass conc 92 mg/dL Normal 0-130 [facility] Work Phone: Cholesterol in VLDL mass conc 28 mg/dL Normal 5-40 [facility] Work Phone: Cholesterol mass conc 173 mg/dL Normal Com prehensive [facility] Work Phone: Comment on above: <200 mg/dL Desirable 200-240 mg/dL Borderline >240 mg/dL High Risk Triglyceride mass conc 140 mg/dL Normal Co m[facility] Work Phone: Comment on above: Serum Triglycerides Reference Interval Normal <150 mg/dL Borderline high 150 - 199 mg/dL High 200 - 499 mg/dL Very High > or = 500 mg/dL PSAOrdered By: BlueTalon r on 10-07-2011 Prostate specific Ag mass conc 0.46 ng/mL Normal 0.00-4.00 [facility] Work Phone: Comment on above: NEW TEST ASSAY METHO D AUGUST 30, 2011This test was performed using the TPSA assay method for the[employer]ombai chemistry system. Values obtained with differentassay methods cannot be used interchangably.When changing PSA assays in the course of monitoring apatient, additional sequential testing should be carriedout to confirm baseline values. UACOrdered By: BlueTalon r on 10-07-2011 UAC 1+ Normal [facility] Work Phone: UAC 0 SEEN Normal 0-5 [facility] Work Phone: UAC 0-5 SEEN Normal 0-5 [facility] Work Phone: UAC Negative Normal [facility] Work Phone: UAC YELLOW Normal [facility] Work Phone: UAC SL CLOUDY Normal [facility] Work Phone: UAC 6.0 1 Normal 5.0-8.0 [facility] Work Phone: UAC <=1.005 Normal 1.002-1.03 0 [facility] Work Phone: UAC TRACE-INTACT Abnormal Comprehensiv e [facility] Work Phone: UAC 0.2 EU/dl Normal 0.2 - 1.0 [facility] Work Phone: COMP METABOLICOrdered By: Salvador stem Staff Electronic Warfare Officer on 04-21-2011 Albumin mass conc 4.5 g/dL Normal 3.4-5.0 Compreh ensive [facility] Work Phone: Comment on above: has f/u 04/23/11 Albumin/Globulin mass ratio 1.6 {RATIO} Normal 0.9-2.4 [facility] Internal Medicine Work Phone: Comment on above: has f/u 04/23/11 ALP enzyme act/vol 34 U/L Abnormal 50-[address] [facility] Internal Medicine Work Phone: Comment on above: has f/u 04/23/11 ALT enzyme act/vol 76 U/L Normal 12-78 [facility] Work Phone: Comment on above: has f/u 04/23/11 Anion gap molar conc 7 mmol/L Normal 5-[address] [facility] Work Phone: Comment on above: has f/u 04/23/11 AST enzyme act/vol 42 U/L Abnormal 15-37 [facility] Work Phone: Comment on above: has f/u 04/23/11 Bilirubin mass conc 0.60 mg/dL Normal 0.00-1.00 Compr [facility] Internal Medicine Work Phone: Comment on above: has f/u 04/23/11 Calcium mass conc 8.9 mg/dL Normal 8.5-10.1 Compreh [facility] Internal Medicine Work Phone: Comment on above: has f/u 04/23/11 Chloride molar conc 103 mmol/L Normal 98-107 Compr ehensive [facility] Medicine Work Phone: Comment on above: has f/u 04/23/11 CO2 molar conc 28.0 mmol/L Normal 21.0-32.0 Comprehen sive [facility] Medicine Work Phone: Comment on above: has f/u 04/23/11 Creatinine mass conc 0.9 mg/dL Normal 0.8-1.3 Comp rehensive [facility] Medicine Work Phone: Comment on above: has f/u 04/23/11 GFR/1.73 sq M predicted among blacks MDRD vol rate/area (S/P/Bld) 118 mL/min/{1.73_m2} Normal Comprehensi ve [facility] Medicine Work Phone: Comment on above: has f/u 04/23/11 GFR/1.73 sq M.predicted MDRD (S/P/Bld) [Vol rate/Area] 97 mL/min/{1.73_m2} Normal Comprehensiv e [facility] Work Phone: Comment on above: has f/u 04/23/11 GFR/1.73 sq M.predicted MDRD vol rate/area 97 mL/min/{1.73_m2} Normal Comprehensiv e [facility] Work Phone: Comment on above: has f/u 04/23/11 Globulin mass conc (S) 2.9 g/dL Normal 2.7-4.2 Co mprehensive [facility] Work Phone: Comment on above: has f/u 04/23/11 Glucose mass conc 96 mg/dL Normal 70-110 Compreh ensive [facility] Work Phone: Comment on above: has f/u 04/23/11 Potassium molar conc 4.2 mmol/L Normal 3.5-5.1 Comp rehensive [facility] Medicine Work Phone: Comment on above: has f/u 04/23/11 Protein mass conc 7.4 g/dL Normal 6.4-8.2 Compreh ensive [facility] Work Phone: Comment on above: has f/u 04/23/11 Sodium molar conc 138 mmol/L Normal 136-145 Compreh ensive [facility] Work Phone: Comment on above: has f/u 04/23/11 Urea nitrogen mass conc 22 mg/dL Abnormal 7-18 [facility] Work Phone: Comment on above: has f/u 04/23/11 Urea nitrogen/Creatinine mass ratio 24.4 {RATIO} Abnormal 10-20 [facility] Work Phone: Comment on above: has f/u 04/23/11 LIPIDOrdered By: Bryan king on 04-21-2011 Cholesterol in HDL mass conc 62 mg/dL Normal [facility] Work Phone: Comment on above: Reference Range HDL <40 mg/dL Low HDL Cholesterol HDL >or= 60 mg/dL High HDL Cholesterol Cholesterol in LDL mass conc 122 mg/dL Normal 0-130 [facility] Work Phone: Cholesterol in VLDL mass conc 18 mg/dL Normal 5-40 [facility] Work Phone: Cholesterol mass conc 202 mg/dL Abnormal Com prehensive [facility] Work Phone: Comment on above: <200 mg/dL Desirable 200-240 mg/dL Borderline >240 mg/dL High Risk Triglyceride mass conc 89 mg/dL Normal Co m[facility] Work Phone: Comment on above: Serum Triglycerides Reference Interval Normal <150 mg/dL Borderline high 150 - 199 mg/dL High 200 - 499 mg/dL Very High > or = 500 mg/dL COMP METABOLICOrdered By: Salvador stem Staff Electronic Warfare Officer on 12-22-2010 Albumin mass conc 4.7 g/dL Normal 3.4-5.0 Compreh ensive [facility] Work Phone: Albumin/Globulin mass ratio 1.7 {RATIO} Normal 0.9-2.4 [facility] Work Phone: ALP enzyme act/vol 39 U/L Abnormal 50-136 Compre hensive [facility] Work Phone: ALT enzyme act/vol 63 U/L Normal 12-78 Compre hensive [facility] Work Phone: Anion gap molar conc 7 mmol/L Normal 5-15 Comp rehensive [facility] Work Phone: AST enzyme act/vol 31 U/L Normal 15-37 Compre hensive [facility] Work Phone: Bilirubin mass conc 0.60 mg/dL Normal 0.00-1.00 Compr ehensive [facility] Medicine Work Phone: Calcium mass conc 9.3 mg/dL Normal 8.5-10.1 Compreh ensive [facility] Work Phone: Chloride molar conc 99 mmol/L Normal 98-107 Compr ehensive [facility] Medicine Work Phone: CO2 molar conc 29.0 mmol/L Normal 21.0-32.0 Comprehen sive [facility] Medicine Work Phone: Creatinine mass conc 1.1 mg/dL Normal 0.8-1.3 Comp rehensive [facility] Medicine Work Phone: GFR/1.73 sq M predicted among blacks MDRD vol rate/area (S/P/Bld) 93 mL/min/{1.73_m2} Normal Comprehensiv e [facility] Work Phone: GFR/1.73 sq M.predicted MDRD (S/P/Bld) [Vol rate/Area] 77 mL/min/{1.73_m2} Normal Comprehensiv e [facility] Work Phone: GFR/1.73 sq M.predicted MDRD vol rate/area 77 mL/min/{1.73_m2} Normal Comprehensiv e [facility] Work Phone: Globulin mass conc (S) 2.7 g/dL Normal 2.7-4.2 Co mprehensive [facility] Work Phone: Glucose mass conc 96 mg/dL Normal 70-110 Compreh ensive [facility] Work Phone: Potassium molar conc 4.7 mmol/L Normal 3.5-5.1 Comp rehensive [facility] Work Phone: Protein mass conc 7.4 g/dL Normal 6.4-8.2 Compreh ensive [facility] Work Phone: Sodium molar conc 135 mmol/L Abnormal 136-145 Compreh ensive [facility] Work Phone: Urea nitrogen mass conc 22 mg/dL Abnormal 7-18 [facility] Work Phone: Urea nitrogen/Creatinine mass ratio 20.0 {RATIO} Normal 10-20 [facility] Work Phone: LIPIDOrdered By: Bryan king on 12-22-2010 Cholesterol in HDL mass conc 68 mg/dL Normal [facility] Work Phone: Comment on above: Reference Range HDL <40 mg/dL Low HDL Cholesterol HDL >or= 60 mg/dL High HDL Cholesterol Cholesterol in LDL mass conc 100 mg/dL Normal 0-130 [facility] Work Phone: Cholesterol in VLDL mass conc 24 mg/dL Normal 5-40 [facility] Work Phone: Cholesterol mass conc 192 mg/dL Normal Com prehensive [facility] Work Phone: Comment on above: <200 mg/dL Desirable 200-240 mg/dL Borderline >240 mg/dL High Risk Triglyceride mass conc 121 mg/dL Normal Co mprehensive [facility] Work Phone: Comment on above: Serum Triglycerides Reference Interval Normal <150 mg/dL Borderline high 150 - 199 mg/dL High 200 - 499 mg/dL Very High > or = 500 mg/dL CBC with manual diff (55554) Ordered By: Activity Specialist on 07-27-2010 Basophils #/vol (Bld) 0.1 {x10E3/uL} Normal 0.0-0.2 [facility] Work Phone: Comment on above: PERFORMED BY: [employer]6370 [facility] [id number] Basophils (Bld) [#/Vol] 0.1 10*3/uL Normal 0.0-0.2 [facility]; [facility] Work Phone: Basophils/100 WBC (Bld) 1 % Normal 0-3 [facility] Work Phone: Comment on above: PERFORMED BY: [employer] [facility] [id number] Eosinophils #/vol (Bld) 0.2 {x10E3/uL} Normal 0.0-0.4 [facility] Work Phone: Comment on above: PERFORMED BY: [employer]6370 [facility] [id number] Eosinophils (Bld) [#/Vol] 0.2 10*3/uL Normal 0.0-0.4 [facility]; [facility] Work Phone: Eosinophils/100 WBC (Bld) 3 % Normal 0-7 [facility] Work Phone: Comment on above: PERFORMED BY: [employer] [facility] [id number] Erythrocyte distribution width Ratio (RBC) 14.6 % Normal 11.7-15.0 [facility] Work Phone: Comment on above: PERFORMED BY: [employer] Barrios [facility] [id number] Hematocrit Volume Fraction (Bld) 47.0 % Normal 36.0-50.0 [facility] Work Phone: Comment on above: PERFORMED BY: [facility] [id number] Hemoglobin mass conc (Bld) 16.1 g/dL Normal 12.5-17.0 [facility] Work Phone: Comment on above: PERFORMED BY: [employer] [facility] [id number] Immature granulocytes #/vol (Bld) 0.0 {x10E3/uL} Normal 0.0-0.1 [facility] Work Phone: Comment on above: PERFORMED BY: [employer] [facility] [id number] Immature granulocytes (Bld) [#/Vol] 0.0 10*3/uL Normal 0.0-0.1 [facility]; [facility] Work Phone: Immature granulocytes/100 WBC (Bld) 0 % Normal 0-1 [facility] Work Phone: Comment on above: PERFORMED BY: [employer]6370 Barrios [employer] ServicesPending Sale To [facility]in [place] [id number] Lymphocytes #/vol (Bld) 2.4 {x10E3/uL} Normal 0.7-4.5 [facility] Work Phone: Comment on above: PERFORMED BY: [employer]6370 Barrios [employer] [facility] ServicesFormer[facility] [id number] Lymphocytes (Bld) [#/Vol] 2.4 10*3/uL Normal 0.7-4.5 [facility]; [facility] Work Phone: Lymphocytes/100 WBC (Bld) 30 % Normal 14-46 [facility] Work Phone: Comment on above: PERFORMED BY: [employer]70 [facility] [id number] MCH Entitic mass (RBC) 31.9 pg Normal 27.0-34.0 [facility] Internal Medicine Work Phone: Comment on above: PERFORMED BY: [employer]70 [facility] [id number] MCHC mass conc (RBC) 34.3 g/dL Normal 32.0-36.0 [facility] Internal Medicine Work Phone: Comment on above: PERFORMED BY: [employer]6370 Bar[facility] [id number] MCV Entitic volume (RBC) 93 fL Normal 80-98 [facility] Work Phone: Comment on above: PERFORMED BY: [employer]70 [facility] [id number] Monocytes #/vol (Bld) 0.8 {x10E3/uL} Normal 0.1-1.0 [facility] Internal Medicine Work Phone: Comment on above: PERFORMED BY: [employer]70 [facility] [id number] Monocytes (Bld) [#/Vol] 0.8 10*3/uL Normal 0.1-1.0 [facility]; [facility] Internal Medicine Work Phone: Monocytes/100 WBC (Bld) 10 % Normal 4-13 [facility] Work Phone: Comment on above: PERFORMED BY: [employer]70 [facility] [id number] Neutrophils #/vol (Bld) 4.6 {x10E3/uL} Normal 1.8-7.8 [facility] Work Phone: Comment on above: PERFORMED BY: [employer]70 [facility] [id number] Neutrophils (Bld) [#/Vol] 4.6 10*3/uL Normal 1.8-7.8 [facility]; [facility] Work Phone: Neutrophils/100 WBC (Bld) 56 % Normal 40-74 [facility] Work Phone: Comment on above: PERFORMED BY: [facility]ik[employer] TechnologiesM[facility] Hospital [id number] Platelets #/vol (Bld) 229 {x10E3/uL} Normal 140-415 [facility] Work Phone: Comment on above: PERFORMED BY: Qikwell TechnologiesM[facility] Hospital [id number] Platelets (Bld) [#/Vol] 229 10*3/uL Normal 140-415 [facility]; [facility] Work Phone: RBC #/vol (Bld) 5.05 {x10E6/uL} Normal 4.10-5.[address] [facility] Work Phone: Comment on above: PERFORMED BY: [employer]70 [facility] [id number] RBC (Bld) [#/Vol] 5.05 10*6/uL Normal 4.10-5.60 Compr ensive Internal Medicine; [facility] Work Phone: WBC #/vol (Bld) 8.1 {x10E3/uL} Normal 4.0-10.5 Compr ensive [facility] Medicine Work Phone: Comment on above: PERFORMED BY: [facility] Rupinder Zaqcsa8869 [facility]riosCrittenton [facility] [id number] WBC (Bld) [#/Vol] 8.1 10*3/uL Normal 4.0-10.5 [facility] Internal Medicine; [facility] Internal Medicine Work Phone: LDH (LD) (LACTATE DEHYDROGEN ASE) ([id number])Ordered By: Activity Specialist on 07-27-2010 LDH [Catalytic activity/Vol] 234 U/L Abnormal 0-225 [facility] Internal Medicine; [facility] Internal Medicine Work Phone: LDH enzyme act/vol 234 [iU]/L Abnormal 0-225 [facility] Internal Medicine Work Phone: Comment on above: Please note refere nce interval change PATIENT NOT FASTINGP ERFORMED BY: [facility] CooeeMission Hospital [id number] C-REACTIVE PROTEIN ([id number])Or dered By: Activity Specialist on 07-20-2010 CRP mass conc 0.5 mg/L Normal 0.0-4.9 [facility] Internal Medicine Work Phone: Comment on above: PATIENT NOT FASTINGP ERFORMED BY: [employer]70 [facility] [id number] CBC WITH MANUAL DIFF ([id number]) Ordered By: Activity Specialist on 07-20-2010 Basophils #/vol (Bld) 0.1 {x10E3/uL} Normal 0.0-0.2 [facility] Internal Medicine Work Phone: Comment on above: PATIENT NOT FASTINGP ERFORMED BY: [employer]rp Gyhuvc8533 BarriosSt. Louis Children's HospitalInternet Gold - Golden LinesMission Hospital [id number] Information: [id number] Basophils (Bld) [#/Vol] 0.1 10*3/uL Normal 0.0-0.2 [facility] Internal Medicine; [facility] Internal Medicine Work Phone: Basophils/100 WBC (Bld) 1 % Normal 0-3 [facility] Internal Medicine Work Phone: Comment on above: PATIENT NOT FASTINGP ERFORMED BY: [employer]70 [facility] [id number] Information: [id number] Eosinophils #/vol (Bld) 0.4 {x10E3/uL} Normal 0.0-0.4 [facility] Work Phone: Comment on above: PATIENT NOT FASTINGP ERFORMED BY: AFRICA [facility]6370 [facility] [id number] Information: [id number] Eosinophils (Bld) [#/Vol] 0.4 10*3/uL Normal 0.0-0.4 [facility]; [facility] Work Phone: Eosinophils/100 WBC (Bld) 5 % Normal 0-7 [facility] Work Phone: Comment on above: PATIENT NOT FASTINGP ERFORMED BY: [facility]6370 [facility] [id number] Information: [id number] Erythrocyte distribution width Ratio (RBC) 14.5 % Normal 11.7-15.0 [facility] Work Phone: Comment on above: PATIENT NOT FASTINGP ERFORMED BY: [facility]6370 [facility] [id number] Information: [id number] Hematocrit Volume Fraction (Bld) 46.1 % Normal 36.0-50.0 [facility] Work Phone: Comment on above: PATIENT NOT FASTINGP ERFORMED BY: [place] [id number] [facility] [id number] Information: [id number] Hemoglobin mass conc (Bld) 15.9 g/dL Normal 12.5-17.0 [facility] Work Phone: Comment on above: PATIENT NOT FASTINGP ERFORMED BY: [facility]6370 [facility] [id number] Information: [id number] Immature granulocytes #/vol (Bld) 0.0 {x10E3/uL} Normal 0.0-0.1 [facility] Work Phone: Comment on above: PATIENT NOT FASTINGP ERFORMED BY: AFRICA [facility]6370 [facility] [id number] Information: [id number] Immature granulocytes (Bld) [#/Vol] 0.0 10*3/uL Normal 0.0-0.1 [facility]; [facility] Work Phone: Immature granulocytes/100 WBC (Bld) 0 % Normal 0-1 [facility] Work Phone: Comment on above: PATIENT NOT FASTINGP ERFORMED BY: [place] [id number] [facility] [id number] Information: [id number] Lymphocytes #/vol (Bld) 1.9 {x10E3/uL} Normal 0.7-4.5 [facility] Work Phone: Comment on above: PATIENT NOT FASTINGP ERFORMED BY: AFRICA [facility]6370 [facility] [id number] Information: [id number] Lymphocytes (Bld) [#/Vol] 1.9 10*3/uL Normal 0.7-4.5 [facility]; [facility] Work Phone: Lymphocytes/100 WBC (Bld) 23 % Normal 14-46 [facility] Work Phone: Comment on above: PATIENT NOT FASTINGP ERFORMED BY: [place] [id number] [facility] [id number] Information: [id number] MCH Entitic mass (RBC) 32.3 pg Normal 27.0-34.0 [facility] Internal Medicine Work Phone: Comment on above: PATIENT NOT FASTINGP ERFORMED BY: AFRICA [facility]6370 [facility] [id number] Information: [id number] MCHC mass conc (RBC) 34.5 g/dL Normal 32.0-36.0 [facility] Internal Medicine Work Phone: Comment on above: PATIENT NOT FASTINGP ERFORMED BY: AFRICA Rich Cynavn7125 [facility] [id number] Information: [id number] MCV Entitic volume (RBC) 94 fL Normal 80-98 [facility] Work Phone: Comment on above: PATIENT NOT FASTINGP ERFORMED BY: AFRICA Rich Cmtlpq6318 [facility] [id number] Information: [id number] Monocytes #/vol (Bld) 1.3 {x10E3/uL} Abnormal 0.1-1.0 [facility] Work Phone: Comment on above: PATIENT NOT FASTINGP ERFORMED BY: AFRICA Rich Uexewa4052 [place] [facility] [id number] Information: [id number] Monocytes (Bld) [#/Vol] 1.3 10*3/uL Abnormal 0.1-1.0 [facility]; [facility] Work Phone: Monocytes/100 WBC (Bld) 16 % Abnormal 4-13 [facility] Work Phone: Comment on above: PATIENT NOT FASTINGP ERFORMED BY: AFRICA Tobarlin6370 [facility] [id number] Information: [id number] Neutrophils #/vol (Bld) 4.5 {x10E3/uL} Normal 1.8-7.8 [facility] Work Phone: Comment on above: PATIENT NOT FASTINGP ERFORMED BY: [facility]6370 [facility] [id number] Information: [id number] Neutrophils (Bld) [#/Vol] 4.5 10*3/uL Normal 1.8-7.8 [facility]; [facility] Work Phone: Neutrophils/100 WBC (Bld) 55 % Normal 40-74 [facility] Work Phone: Comment on above: PATIENT NOT FASTINGP ERFORMED BY: AFRICA Hilariorosa Lwbbmk1072 [facility] [id number] Information: [id number] Platelets #/vol (Bld) 186 {x10E3/uL} Normal 140-415 [facility] Work Phone: Comment on above: PATIENT NOT FASTINGP ERFORMED BY: AFRICA Hilario Mpgsxx6430 [facility] [id number] Information: [id number] Platelets (Bld) [#/Vol] 186 10*3/uL Normal 140-415 [facility]; [facility] Work Phone: RBC #/vol (Bld) 4.92 {x10E6/uL} Normal 4.10-5.[address] [facility] Work Phone: Comment on above: PATIENT NOT FASTINGP ERFORMED BY: AFRICA Hilario Zdzqar4847 [facility] [id number] Information: [id number] RBC (Bld) [#/Vol] 4.92 10*6/uL Normal 4.10-5.60 Compr ehensive Internal Medicine; [facility] Work Phone: WBC #/vol (Bld) 8.2 {x10E3/uL} Normal 4.0-10.5 Compr ehensive Internal Medicine Work Phone: Comment on above: PATIENT NOT FASTINGP ERFORMED BY: AFRICA [facility]Mary [facility]6370 [facility] [id number] Information: [id number] WBC (Bld) [#/Vol] 8.2 10*3/uL Normal 4.0-10.5 Compre hensive [facility]; [facility] Work Phone: METABOLIC PANEL, COMPREHENSI VE ([id number])Ordered By: Activity Specialist on 07-20-2010 Albumin mass conc 4.5 g/dL Normal 3.5-5.5 Compreh ensive Internal Medicine Work Phone: Comment on above: PATIENT NOT FASTINGP ERFORMED BY: AFRICA RichWilliam V[place] [id number] [facility] [id number] Albumin/Globulin mass ratio 2.3 {ratio} Normal 1.1-2.5 [facility] Internal Medicine Work Phone: Comment on above: PATIENT NOT FASTINGP ERFORMED BY: AFRICA Rich Ynbgdj5153 [facility] [id number] ALP [Catalytic activity/Vol] 38 U/L Normal 25-150 [facility] Internal Medicine; [facility] Internal Medicine Work Phone: ALP enzyme act/vol 38 [iU]/L Normal 25-150 [facility] Internal Medicine Work Phone: Comment on above: PATIENT NOT FASTINGP ERFORMED BY: Hilario Exzajk4643 [facility] [id number] ALT [Catalytic activity/Vol] 49 U/L Normal 0-55 [facility] Internal Medicine; [facility] Internal Medicine Work Phone: ALT enzyme act/vol 49 [iU]/L Normal 0-55 [facility] Internal Medicine Work Phone: Comment on above: PATIENT NOT FASTINGP ERFORMED BY: [facility] Sjslcr5868 [facility] [id number] AST [Catalytic activity/Vol] 34 U/L Normal 0-40 [facility] Internal Medicine; [facility] Internal Medicine Work Phone: AST enzyme act/vol 34 [iU]/L Normal 0-40 [facility] Internal Medicine Work Phone: Comment on above: PATIENT NOT FASTINGP ERFORMED BY: Hilario Wyllbk7865 [facility] [id number] Bilirubin mass conc 0.3 mg/dL Normal 0.0-1.2 [facility] Internal Medicine Work Phone: Comment on above: PATIENT NOT FASTINGP ERFORMED BY: AFRICA Rich Fhfkkg7710 [facility] [id number] Calcium mass conc 9.0 mg/dL Normal 8.7-10.2 [facility] Internal Medicine Work Phone: Comment on above: PATIENT NOT FASTINGP ERFORMED BY: [facility] Qblgox6942 [address] [facility] [id number] Chloride molar conc 106 mmol/L Normal 97-108 Compr ehensive Internal Medicine Work Phone: Comment on above: PATIENT NOT FASTINGP ERFORMED BY: AFRICA [facility] Keaxku6853 [address] [facility] [id number] CO2 molar conc 21 mmol/L Normal 20-32 Comprehens chalo Internal Medicine Work Phone: Comment on above: PATIENT NOT FASTINGP ERFORMED BY: [facility] Gklhic2862 [facility] [id number] Creatinine mass conc 0.87 mg/dL Normal 0.76-1.[address] [facility] Work Phone: Comment on above: PATIENT NOT FASTINGP ERFORMED BY: [facility] [id number] [facility] [id number] GFR/1.73 sq M predicted among blacks MDRD vol rate/area (S/P/Bld) 122 mL/min/{1.73_m2} Normal Comprehensi ve Internal Medicine Work Phone: Comment on above: Note: A persistent e GFR <60 mL/min/1.73 m2 (3 months or more) mayindicate chronic kidney disease. An eGFR >59 mL/min/1.73 m2 with anelevated urine protein also may indicate chronic kidney disease.Calculated using CKD-EPI formula. PATIENT NOT FASTINGP ERFORMED BY: [facility]6370 [facility] [id number] GFR/1.73 sq M predicted among non-blacks CKD-EPI vol rate/area (S/P/Bld) 106 mL/min/1.73 Normal Comprehensiv e Internal Medicine Work Phone: Comment on above: PATIENT NOT FASTINGP ERFORMED BY: AFRICA [facility] Uuavwj7931 [facility] [id number] Globulin mass conc (S) 2.0 g/dL Normal 1.5-4.5 [facility] Work Phone: Comment on above: PATIENT NOT FASTINGP ERFORMED BY: AFRICA [facility] Apyako27[address]rios RoadDublin [place] [id number] Glucose mass conc 91 mg/dL Normal 65-99 Compreh ensive Internal Medicine Work Phone: Comment on above: PATIENT NOT FASTINGP ERFORMED BY: AFRICA [facility] Vrxyyq4676 Barrios RoadDublin [place] [id number] Potassium molar conc 4.2 mmol/L Normal 3.5-5.2 Comp rehensive Internal Medicine Work Phone: Comment on above: PATIENT NOT FASTINGP ERFORMED BY: CB [facility] Xrkipv2244 Barrios RoadDublin [place] [id number] Protein mass conc 6.5 g/dL Normal 6.0-8.5 Compreh ensive [facility] Medicine Work Phone: Comment on above: PATIENT NOT FASTINGP ERFORMED BY: AFRICA [facility] Cvucqp6861 [address] RoadDublin [place] [id number] Sodium molar conc 141 mmol/L Normal 135-145 Compreh ensive Internal Medicine Work Phone: Comment on above: PATIENT NOT FASTINGP ERFORMED BY: AFRICA [facility] Golaxa8[address] RoadDublin [place] [id number] Urea nitrogen mass conc 18 mg/dL Normal 6-24 [facility] Work Phone: Comment on above: PATIENT NOT FASTINGP ERFORMED BY: AFRICA [facility] Mcibox4[address]Dublin [place] [id number] Urea nitrogen/Creatinine mass ratio 21 mg/mg Abnormal 9-20 [facility] Work Phone: Comment on above: PATIENT NOT FASTINGP ERFORMED BY: CB [facility] Iliomo232[address]Dublin [place] [id number] SED RATE ERYTHROCYTE ([id number]) Ordered By: Activity Specialist on 07-20-2010 ESR Velocity (Bld) 1 mm/h Normal 0-15 Compre hensive Internal Medicine Work Phone: Comment on above: PATIENT NOT FASTINGP ERFORMED BY: CB [facility] Hwgemd3186 [address]Dublin [place] [id number] LIVEROrdered By: System Syl christine on 05-11-2010 Albumin mass conc 4.5 g/dL Normal 3.4-5.0 Compreh ensive Internal Medicine Work Phone: ALP enzyme act/vol 41 U/L Abnormal 50-136 [facility] Internal Medicine Work Phone: ALT enzyme act/vol 68 U/L Normal 12-[address] [facility] Internal Medicine Work Phone: AST enzyme act/vol 30 U/L Normal 15-37 [facility] Internal Medicine Work Phone: Bilirubin mass conc 0.70 mg/dL Normal 0.00-1.00 Compr ensive Internal Medicine Work Phone: Protein mass conc 7.0 g/dL Normal 6.4-8.2 Compreh ensive Internal Medicine Work Phone: LIVER 0.19 mg/dL Normal 0.00-0.30 [facility] Work Phone: LASHELL CULTURE-OTHER ([id number])Ord ered By: Activity Specialist on 05-05-2010 Bacteria identified Respiratory culture Nom (Unsp spec) RRF Normal [facility] Work Phone: Comment on above: Routine respiratory chandra PATIENT NOT FASTINGP ERFORMED BY: AFRICA [facility] Pebdkn5246 [facility] [id number] Information: SRC:THRT [id number] Bacteria identified Respiratory culture Nom (Unsp spec) Final report Normal [facility] Work Phone: Comment on above: PATIENT NOT FASTINGP ERFORMED BY: Dana Translation [facility] Bbfdde0030 [facility] [id number] Information: SRC:THRT [id number] Rapid Strep Test, Office ([phone])Ordered By: Sirisha Teran on 05-04-2010 S. pyogenes Ag EIA Ql (Throat) Negative Normal [facility]; [facility] Work Phone: S. pyogenes Ag IA Ql (Unsp spec) Negative Normal [facility] Work Phone: CBCD,SMEAR DIFFOrdered By: Kev ystem Staff Electronic Warfare Officer on 03-23-2010 Erythrocyte distribution width Ratio (RBC) 13.2 % Normal 11.6-14.6 [facility] Work Phone: Hematocrit Volume Fraction (Bld) 46.4 % Normal 40-54 [facility] Work Phone: Hemoglobin mass conc (Bld) 16.4 g/dL Normal 14.0-18.0 [facility] Work Phone: MCH Entitic mass (RBC) 32.6 pg Abnormal 27.0-32.0 Co mprehensive [facility] Medicine Work Phone: MCHC mass conc (RBC) 35.4 g/dL Normal 32-36 Comp rehensive Internal Medicine Work Phone: MCV Entitic volume (RBC) 92.0 fL Normal 80-94 [facility] Work Phone: Neutrophils #/vol (Bld) 3.3 3/uL Normal 2.0-7.7 [facility] Work Phone: Platelets #/vol (Bld) 223 10*3/uL Normal 150-450 Co [facility] Internal Medicine Work Phone: RBC #/vol (Bld) 5.04 {M/mm3} Normal 4.6-6.2 Compreh [facility] Work Phone: WBC #/vol (Bld) 5.9 10*3/uL Normal 4.4-11.0 [facility] Work Phone: CBCD,SMEAR DIFF 100 1 Normal Comprehen [facility] Internal Medicine Work Phone: CBCD,SMEAR DIFF 30 % Normal 19-41 Comprehen [facility] Internal Medicine Work Phone: CBCD,SMEAR DIFF 11 % Abnormal 0-10 Comprehen [facility] Internal Medicine Work Phone: CBCD,SMEAR DIFF 59 % Normal 47-70 Comprehen [facility] Internal Medicine Work Phone: COMP METABOLICOrdered By: Salvador stem Staff Electronic Warfare Officer on 03-23-2010 Albumin mass conc 4.8 g/dL Normal 3.4-5.0 Compreh ensive Internal Medicine Work Phone: Albumin/Globulin mass ratio 1.7 {RATIO} Normal 0.9-2.4 [facility] Internal Medicine Work Phone: ALP enzyme act/vol 39 U/L Abnormal 50-136 [facility] Internal Medicine Work Phone: ALT enzyme act/vol 111 U/L Abnormal 12-78 [facility] Internal Medicine Work Phone: Anion gap molar conc 8 mmol/L Normal 5-15 [facility] Work Phone: AST enzyme act/vol 42 U/L Abnormal 15-37 [facility] Internal Medicine Work Phone: Bilirubin mass conc 0.70 mg/dL Normal 0.00-1.00 [facility] Internal Medicine Work Phone: Calcium mass conc 9.6 mg/dL Normal 8.5-10.1 Compreh [facility] Internal [facility] Work Phone: Chloride molar conc 104 mmol/L Normal 98-107 Compr [facility] Internal Medicine Work Phone: CO2 molar conc 28.0 mmol/L Normal 21.0-32.0 [facility] Internal Medicine Work Phone: Creatinine mass conc 1.0 mg/dL Normal 0.8-1.3 [facility] Internal Medicine Work Phone: GFR/1.73 sq M predicted among blacks MDRD vol rate/area (S/P/Bld) 105 mL/min/{1.73_m2} Normal Comprehensi ve Internal Medicine Work Phone: GFR/1.73 sq M.predicted MDRD vol rate/area 87 mL/min/{1.73_m2} Normal Comprehensiv e Internal Medicine Work Phone: Globulin mass conc (S) 2.8 g/dL Normal 2.7-4.2 [facility] Work Phone: Glucose mass conc 90 mg/dL Normal 70-110 Compreh [facility] Internal Medicine Work Phone: Potassium molar conc 4.9 mmol/L Normal 3.5-5.1 Comp rehensive Internal Medicine Work Phone: Protein mass conc 7.6 g/dL Normal 6.4-8.2 Compreh ensive Internal Medicine Work Phone: Sodium molar conc 140 mmol/L Normal 136-145 Compreh ensive Internal Medicine Work Phone: Urea nitrogen mass conc 21 mg/dL Abnormal 7-18 [facility] Work Phone: Urea nitrogen/Creatinine mass ratio 21.0 {RATIO} Abnormal 10-20 [facility] Work Phone: COMPLETE UAOrdered By: Lazaro Singh on 03-23-2010 COMPLETE UA SeeNote Normal 0-5 [facility] Work Phone: Comment on above: Result: NEGATIVE Result: ADEQUATE Result: NORM C+C Result: 0-5 SEEN COMPLETE UA 1.025 1 Normal 1.002-1.03 0 [facility] Work Phone: COMPLETE UA CLEAR Normal [facility] Work Phone: COMPLETE UA YELLOW Normal [facility] Work Phone: COMPLETE UA 0.2 EU/dl Normal 0.2 - 1.0 [facility] Work Phone: COMPLETE UA 5.5 1 Normal 5.0-8.0 [facility] Work Phone: COMPLETE UA 0 SEEN Normal [facility] Work Phone: LIPIDOrdered By: Bryan king on 03-23-2010 Cholesterol in HDL mass conc 55 mg/dL Normal [facility] Work Phone: Comment on above: Reference Range HDL <40 mg/dL Low HDL Cholesterol HDL >or= 60 mg/dL High HDL Cholesterol Cholesterol in LDL mass conc 122 mg/dL Normal 0-130 [facility] Work Phone: Cholesterol in VLDL mass conc 15 mg/dL Normal 5-40 [facility] Work Phone: Cholesterol mass conc 192 mg/dL Normal Com prehensive Internal Medicine Work Phone: Comment on above: <200 mg/dL Desirable 200-240 mg/dL Borderline >240 mg/dL High Risk Triglyceride mass conc 76 mg/dL Normal Co mprehensive Internal Medicine Work Phone: Comment on above: Serum Triglycerides Reference Interval Normal <150 mg/dL Borderline high 150 - 199 mg/dL High 200 - 499 mg/dL Very High > or = 500 mg/dL PSA, SCREENOrdered By: Lazaro Singh on 03-23-2010 Prostate specific Ag mass conc 0.3 ng/mL Normal 0.0-4.0 [facility] Work Phone: Rapid Flu ([phone] x 2)on 01-09 FLUAV Ag IA Ql (Throat) Negative Normal [facility] Work Phone: Comment on above: aw negative FLUAV Ag IA Ql (Throat) Negative Normal [facility]; [facility] Work Phone: INFLUENZA IMMUNOASSY DIRECT OPTICAL OBSERV ([id number])Ordered By: Shannon Caicedo on 01-17-2009 FLUAV Ag IA Ql (Throat) Negative Normal [facility] Work Phone: FLUAV Ag IA Ql (Throat) Negative Normal [facility]; [facility] Work Phone: Rapid Strep Test, Office ([phone])Ordered By: Shannon Caicedo on 01-17-2009 S. pyogenes Ag EIA Ql (Throat) Negative Normal [facility]; [facility] Work Phone: S. pyogenes Ag IA Ql (Unsp spec) Negative Normal [facility] Work Phone: URINE LASHELL CULTURE (DINO COL COUNT) ([id number])Ordered By: Frances Alonso on 09-26-2008 Bacteria identified Cx Nom (U) Enterococcus faecalis Normal Comprehens chalo Internal Medicine Work Phone: Comment on above: 1,000 Colonies/mLNot e: this isolate is vancomycin-susceptible.This information is provided for epidemiologic purposesonly: vancomycin is not among the antibioticsrecommended for therapy of urinary tract infectionscaused by Enterococcus. PATIENT NOT FASTINGC linical Information: SRC:UR ADD [id number] PERFORMED BY: [facility] Campuslin6370 [facility] [id number] Bacteria identified Cx Nom (U) Final report Normal [facility] Work Phone: Comment on above: PATIENT NOT FASTINGC linical Information: SRC:JORGE L ADD [id number] PERFORMED BY: AFRICA Neofonie6370 [facility] [id number] Other Antibiotic susc [facility] evidanza [facility] prehensive Internal Medicine Work Phone: Comment on above: S = Susceptibl e; I = Intermediate; R = Resistant P = Positive; N = Negative MICS are expressed in micrograms per mL Antibiotic RSLT#1 RSLT#2 RSLT#3 RSLT#4Ciprofloxacin SLevofloxacin SNitrofurantoin SPenicillin SVancomycin S PATIENT NOT FASTINGC linical Information: SRC:JORGE L ADD [id number] PERFORMED BY: AFRICA [employer], formerly [employer]6370 [facility] [id number] Urinalysis, Office ([id number])Or dered By: Arianna Wilson on 09-26-2008 Bilirubin Ql (U) Negative Normal Comprehe nsive Internal Medicine Work Phone: Bilirubin Ql (U) Negative Normal Comprehe nsive Internal Medicine; [facility] Work Phone: Glucose Test strip (U) [Mass/Vol] Negative Normal [facility]; [facility] Work Phone: Glucose Test strip mass conc (U) Negative Normal [facility] Work Phone: Hemoglobin Ql (U) Hemolyzed Small Normal Co mprehensive Internal Medicine Work Phone: Ketones Ql (U) Negative Normal Comprehens chalo Internal Medicine Work Phone: Ketones Ql (U) Negative Normal Comprehens chalo [facility]; [facility] Work Phone: Leukocyte esterase Test strip Ql (U) Negative Normal [facility] Work Phone: Leukocyte esterase Test strip Ql (U) Negative Normal [facility]; [facility] Work Phone: Nitrite Ql (U) Negative Normal Comprehens chalo Internal Medicine Work Phone: Nitrite Ql (U) Negative Normal Comprehens chalo [facility]; [facility] Work Phone: pH (U) 5.0 [pH] Normal [facility] Work Phone: Protein Ql (U) Negative Normal Comprehens chalo Internal Medicine Work Phone: Protein Ql (U) Negative Normal Comprehens chalo [facility]; [facility] Work Phone: Specific gravity Relative Density (U) 1.025 1 Normal Comprehensi ve Internal Medicine Work Phone: Urobilinogen mass/time (24H U) Normal Normal [facility] Work Phone: Vital Signs Date Time Vital Sign Value Performing Clinician Facility 05-08-2024 08:20-0500 Body height 175.26 cm Zena Nereida PA Work Phone: [facility] 05-08-2024 08:20-0500 Body mass index (BMI) [Ratio] 29.1 kg/m2 Zena Nereida PA Work Phone: [facility] 05-08-2024 08:20-0500 Body weight 89.41 kg Zena Nereida PA Work Phone: [facility] 04-30-2024 21:22-0500 Body mass index (BMI) [Ratio] 30.2 kg/m2 Zena Nereida PA Work Phone: [facility] 04-30-2024 21:22-0500 Body temperature 97.9 [degF] Zena Nereida PA Work Phone: [facility] 04-30-2024 21:22-0500 Body weight 92.98 kg Zena Nereida PA Work Phone: [facility] 04-30-2024 21:22-0500 Diastolic blood pressure 60 mm[Hg] Zena Nereida PA Work Phone: [facility] 04-30-2024 21:22-0500 Heart rate 86 /min Zena Nereida PA Work Phone: [facility] 04-30-2024 21:22-0500 Respiratory rate 18 /min Zena Nereida PA Work Phone: [facility] 04-30-2024 21:22-0500 SaO2% (BldA) [Mass fraction] 100 % Zena Nereida PA Work Phone: [facility] 04-30-2024 21:22-0500 Systolic blood pressure 120 mm[Hg] Zena Nereida PA Work Phone: [facility] 04-24-2024 15:31-0500 Body mass index (BMI) [Ratio] 29.5 kg/m2 Zena Nereida PA Work Phone: [facility] 04-24-2024 15:31-0500 Body temperature 97.5 [degF] Zena Nereida PA Work Phone: [facility] 04-24-2024 15:31-0500 Body weight 90.71 kg Zena Nereida PA Work Phone: [facility] 04-24-2024 15:31-0500 Diastolic blood pressure 70 mm[Hg] Zena Nereida PA Work Phone: [facility] 04-24-2024 15:31-0500 Heart rate 76 /min Zena Nereida PA Work Phone: [facility] 04-24-2024 15:31-0500 Respiratory rate 18 /min Zena Nereida PA Work Phone: [facility] 04-24-2024 15:31-0500 SaO2% (BldA) [Mass fraction] 96 % Zena Nereida PA Work Phone: [facility] 04-24-2024 15:31-0500 Systolic blood pressure 115 mm[Hg] Zena Nereida PA Work Phone: [facility] 04-23-2024 10:10-0500 Body height 175.3 cm Robson Beck MD Work Phone: [facility] 04-23-2024 10:10-0500 Body mass index (BMI) [Ratio] 29.68 kg/m2 Robson Beck MD Work Phone: [facility] 04-23-2024 10:10-0500 Body weight 91.17 kg Robson Beck MD Work Phone: [facility] 04-23-2024 10:10-0500 Diastolic blood pressure 62 mm[Hg] Robson Beck MD Work Phone: [facility] 04-23-2024 10:10-0500 Heart rate 62 /min Robson Beck MD Work Phone: [facility] 04-23-2024 10:10-0500 Respiratory rate 12 /min Robson Beck MD Work Phone: [facility] 04-23-2024 10:10-0500 SaO2% (BldA) [Mass fraction] 98 % Robson Beck MD Work Phone: [facility] 04-23-2024 10:10-0500 Systolic blood pressure 116 mm[Hg] Robson Beck MD Work Phone: [facility] 03-06-2024 15:00-0500 Body mass index (BMI) [Ratio] 28.9 kg/m2 Zena Nereida PA Work Phone: [facility] 03-06-2024 15:00-0500 Body temperature 97.3 [degF] Zena Nereida PA Work Phone: [facility] 03-06-2024 15:00-0500 Body weight 88.9 kg Zena Nereida PA Work Phone: [facility] 03-06-2024 15:00-0500 Diastolic blood pressure 74 mm[Hg] Zena Nereida PA Work Phone: [facility] 03-06-2024 15:00-0500 Heart rate 71 /min Zena Nereida PA Work Phone: [facility] 03-06-2024 15:00-0500 Respiratory rate 18 /min Zena Nereida PA Work Phone: [facility] 03-06-2024 15:00-0500 SaO2% (BldA) [Mass fraction] 96 % Zena CANNON Work Phone: [facility] 03-06-2024 15:00-0500 Systolic blood pressure 122 mm[Hg] Zena CANNON Work Phone: [facility] 03-14-2023 14:37-0500 Diastolic blood pressure 82 mm[Hg] Robson Beck MD Work Phone: [facility] 03-14-2023 14:37-0500 Systolic blood pressure 122 mm[Hg] Robson Beck MD Work Phone: [facility] 03-14-2023 14:18-0500 Body weight 92.08 kg Robson Beck MD Work Phone: [facility] 03-14-2023 14:18-0500 Heart rate 68 /min Robson Beck MD Work Phone: [facility] 03-14-2023 14:18-0500 SaO2% (BldA) [Mass fraction] 98 % Robson Beck MD Work Phone: [facility] 02-01-2023 21:24-0400 Diastolic blood pressure 93 mm[Hg] Ania Ángela DO Work Phone: [facility] [employer] 02-01-2023 21:24-0400 Heart rate 65 /min Ania Ángela DO Work Phone: [facility] [employer] 02-01-2023 21:24-0400 Respiratory rate 18 /min Ania Ángela DO Work Phone: [facility] [employer] 02-01-2023 21:24-0400 SaO2% (BldA) [Mass fraction] 96 % Ania Ángela DO Work Phone: [facility] [employer] 02-01-2023 21:24-0400 Systolic blood pressure 131 mm[Hg] Ania Ángela DO Work Phone: [facility] [employer] 02-01-2023 20:25-0400 Body height 175.3 cm Ania Motta DO Work Phone: [facility] 02-01-2023 20:25-0400 Body mass index (BMI) [Ratio] 29.53 kg/m2 Ania Motta DO Work Phone: [facility] 02-01-2023 20:25-0400 Body weight 90.72 kg Ania Motta DO Work Phone: [facility] 02-01-2023 20:21-0400 Body temperature 99.1 [degF] Aniablanka Motta DO Work Phone: [facility] 12-27-2022 07:52-0400 Body height 175.26 cm [facility] 12-27-2022 07:52-0400 Body mass index (BMI) [Ratio] 30.4 kg/m2 [facility] 12-27-2022 07:52-0400 Body temperature 97.2 [degF] [facility] 12-27-2022 07:52-0400 Body weight 93.44 kg [facility] 12-27-2022 07:52-0400 Diastolic blood pressure 80 mm[Hg] [facility] 12-27-2022 07:52-0400 Heart rate 74 /min [facility] 12-27-2022 07:52-0400 Respiratory rate 18 /min [facility] 12-27-2022 07:52-0400 SaO2% (BldA) [Mass fraction] 96 % [facility] 12-27-2022 07:52-0400 Systolic blood pressure 115 mm[Hg] [facility] 12-20-2022 19:11-0400 Body mass index (BMI) [Ratio] 30.4 kg/m2 [facility] 12-20-2022 19:11-0400 Body temperature 97.2 [degF] [facility] 12-20-2022 19:11-0400 Body weight 93.44 kg [facility] 12-20-2022 19:11-0400 Diastolic blood pressure 80 mm[Hg] [facility] 12-20-2022 19:11-0400 Heart rate 74 /min [facility] 12-20-2022 19:11-0400 Respiratory rate 18 /min [facility] 12-20-2022 19:11-0400 SaO2% (BldA) [Mass fraction] 96 % [facility] 12-20-2022 19:11-0400 Systolic blood pressure 115 mm[Hg] [facility] 11-08-2022 20:04-0400 Body mass index (BMI) [Ratio] 30.8 kg/m2 [facility] 11-08-2022 20:04-0400 Body temperature 97.5 [degF] [facility] 11-08-2022 20:04-0400 Body weight 94.8 kg [facility] 11-08-2022 20:04-0400 Diastolic blood pressure 70 mm[Hg] [facility] 11-08-2022 20:04-0400 Heart rate 68 /min [facility] 11-08-2022 20:04-0400 Respiratory rate 18 /min [facility] 11-08-2022 20:04-0400 SaO2% (BldA) [Mass fraction] 98 % [facility] 11-08-2022 20:04-0400 Systolic blood pressure 115 mm[Hg] [facility] 09-20-2022 17:45-0400 Body mass index (BMI) [Ratio] 31.3 kg/m2 [facility] 09-20-2022 17:45-0400 Body temperature 97.8 [degF] [facility] 09-20-2022 17:45-0400 Body weight 96.16 kg [facility] 09-20-2022 17:45-0400 Diastolic blood pressure 80 mm[Hg] [facility] 09-20-2022 17:45-0400 Heart rate 77 /min [facility] 09-20-2022 17:45-0400 Respiratory rate 18 /min [facility] 09-20-2022 17:45-0400 SaO2% (BldA) [Mass fraction] 99 % [facility] 09-20-2022 17:45-0400 Systolic blood pressure 138 mm[Hg] [facility] 01-21-2022 15:16-0400 Body height 175.3 cm Robson Beck MD Work Phone: [facility] 01-21-2022 15:16-0400 Body weight 97.98 kg Robson Beck MD Work Phone: [facility] 01-21-2022 15:16-0400 Diastolic blood pressure 89 mm[Hg] Robson Beck MD Work Phone: [facility] 01-21-2022 15:16-0400 Heart rate 69 /min Robson Beck MD Work Phone: [facility] 01-21-2022 15:16-0400 SaO2% (BldA) [Mass fraction] 98 % Robson Beck MD Work Phone: [facility] 01-21-2022 15:16-0400 Systolic blood pressure 125 mm[Hg] Robson Beck MD Work Phone: [facility] 11-23-2021 08:03-0400 Body weight 105.69 kg Card 2 Work Phone: [facility] 11-23-2021 08:03-0400 Diastolic blood pressure 74 mm[Hg] Card 2 Work Phone: [facility] 11-23-2021 08:03-0400 Heart rate 80 /min Card 2 Work Phone: [facility] 11-23-2021 08:03-0400 Systolic blood pressure 112 mm[Hg] Card 2 Work Phone: [facility] 10-28-2021 06:10-0400 Body weight 110.22 kg Card 2 Work Phone: [facility] 10-28-2021 06:10-0400 Diastolic blood pressure 78 mm[Hg] Card 2 Work Phone: [facility] 10-28-2021 06:10-0400 Heart rate 80 /min Card 2 Work Phone: [facility] 10-28-2021 06:10-0400 Systolic blood pressure 124 mm[Hg] Card 2 Work Phone: [facility] 10-21-2021 14:45-0400 Body height 175.3 cm Samira Chang BARREL TESTER AND DRAINER.AIRCRAFT AVIONICS TECHNICIAN Work Phone: [facility] 10-21-2021 14:45-0400 Body weight 109.32 kg Samiraduncan Chang BARREL TESTER AND DRAINER.AIRCRAFT AVIONICS TECHNICIAN Work Phone: [facility] 10-21-2021 14:45-0400 Diastolic blood pressure 91 mm[Hg] Samira Chang BARREL TESTER AND DRAINER.AIRCRAFT AVIONICS TECHNICIAN Work Phone: [facility] 10-21-2021 14:45-0400 Heart rate 74 /min Samira Chang BARREL TESTER AND DRAINER.AIRCRAFT AVIONICS TECHNICIAN Work Phone: [facility] 10-21-2021 14:45-0400 SaO2% (BldA) [Mass fraction] 98 % Samira Chang BARREL TESTER AND DRAINER.AIRCRAFT AVIONICS TECHNICIAN Work Phone: [facility] 10-21-2021 14:45-0400 Systolic blood pressure 136 mm[Hg] Samiraduncan Chang BARREL TESTER AND DRAINER.AIRCRAFT AVIONICS TECHNICIAN Work Phone: [facility] 10-13-2021 08:47-0400 Body height 175.3 cm Ada Jimenez BARREL TESTER AND DRAINER.AIRCRAFT AVIONICS TECHNICIAN Work Phone: [facility] 10-13-2021 08:47-0400 Body weight 108.05 kg Ada Jimenez BARREL TESTER AND DRAINER.AIRCRAFT AVIONICS TECHNICIAN Work Phone: [facility] 10-13-2021 08:47-0400 Diastolic blood pressure 70 mm[Hg] Ada Barbara BARREL TESTER AND DRAINER.AIRCRAFT AVIONICS TECHNICIAN Work Phone: [facility] 10-13-2021 08:47-0400 Heart rate 72 /min Ada Jimenez BARREL TESTER AND DRAINER.AIRCRAFT AVIONICS TECHNICIAN Work Phone: [facility] 10-13-2021 08:47-0400 Respiratory rate 16 /min Ada Barbara BARREL TESTER AND DRAINER.AIRCRAFT AVIONICS TECHNICIAN Work Phone: [facility] 10-13-2021 08:47-0400 SaO2% (BldA) [Mass fraction] 99 % Ada Barbara BARREL TESTER AND DRAINER.AIRCRAFT AVIONICS TECHNICIAN Work Phone: [facility] 10-13-2021 08:47-0400 Systolic blood pressure 110 mm[Hg] Ada Jimenez APRN.AIRCRAFT AVIONICS TECHNICIAN Work Phone: [facility] 10-06-2021 11:11-0400 Body height 175.3 cm Watch Repairer Work Phone: [facility] 10-06-2021 11:11-0400 Body weight 107.23 kg Watch Repairer Work Phone: [facility] 10-06-2021 11:11-0400 Diastolic blood pressure 84 mm[Hg] Watch Repairer Work Phone: [facility] 10-06-2021 11:11-0400 Heart rate 67 /min Watch Repairer Work Phone: [facility] 10-06-2021 11:11-0400 SaO2% (BldA) [Mass fraction] 98 % Watch Repairer Work Phone: [facility] 10-06-2021 11:11-0400 Systolic blood pressure 130 mm[Hg] Watch Repairer Work Phone: [facility] 09-30-2021 15:27-0400 Body temperature 98.01 [degF] Salome Debbie RN Work Phone: [facility] 09-30-2021 15:27-0400 Diastolic blood pressure 84 mm[Hg] Salome Debbie RN Work Phone: [facility] 09-30-2021 15:27-0400 Heart rate 78 /min Salome Debbie RN Work Phone: [facility] 09-30-2021 15:27-0400 Respiratory rate 18 /min Salome Debbie RN Work Phone: [facility] 09-30-2021 15:27-0400 SaO2% (BldA) [Mass fraction] 97 % Salome Debbie RN Work Phone: [facility] 09-30-2021 15:27-0400 Systolic blood pressure 120 mm[Hg] Salome Debbie RN Work Phone: [facility] 09-23-2021 12:41-0400 Body temperature 98.4 [degF] Salome Debbie RN Work Phone: [facility] 09-23-2021 12:41-0400 Body weight 105.23 kg July Debbie RN Work Phone: [facility] 09-23-2021 12:41-0400 Diastolic blood pressure 80 mm[Hg] July Debbie RN Work Phone: [facility] 09-23-2021 12:41-0400 Heart rate 77 /min Salome Debbie RN Work Phone: [facility] 09-23-2021 12:41-0400 Respiratory rate 18 /min Salome Debbie RN Work Phone: [facility] 09-23-2021 12:41-0400 SaO2% (BldA) [Mass fraction] 97 % July Debbie RN Work Phone: [facility] 09-23-2021 12:41-0400 Systolic blood pressure 130 mm[Hg] July Debbie RN Work Phone: [facility] 09-17-2021 13:04-0400 Body height 175.3 cm Chriss Handley MD Work Phone: [facility] 09-17-2021 13:04-0400 Body weight 104.78 kg Chriss Handley MD Work Phone: [facility] 09-17-2021 13:04-0400 Diastolic blood pressure 60 mm[Hg] Chriss Handley MD Work Phone: [facility] 09-17-2021 13:04-0400 Heart rate 88 /min Chriss Handley MD Work Phone: [facility] 09-17-2021 13:04-0400 Respiratory rate 16 /min Chriss Handley MD Work Phone: [facility] 09-17-2021 13:04-0400 SaO2% (BldA) [Mass fraction] 98 % Chriss Handley MD Work Phone: [facility] 09-17-2021 13:04-0400 Systolic blood pressure 94 mm[Hg] Chriss Handley MD Work Phone: [facility] 09-16-2021 17:14-0400 Body temperature 98.01 [degF] Salome Debbie RN Work Phone: [facility] 09-16-2021 17:14-0400 Diastolic blood pressure 74 mm[Hg] Salome Debbie RN Work Phone: [facility] 09-16-2021 17:14-0400 Heart rate 82 /min Salome Debbie RN Work Phone: [facility] 09-16-2021 17:14-0400 Respiratory rate 16 /min Salome Debbie RN Work Phone: [facility] 09-16-2021 17:14-0400 SaO2% (BldA) [Mass fraction] 97 % Salome Debbie RN Work Phone: [facility] 09-16-2021 17:14-0400 Systolic blood pressure 126 mm[Hg] July Debbie RN Work Phone: [facility] 09-14-2021 08:32-0400 Body height 175.3 cm Ada Barbara BARREL TESTER AND DRAINER.AIRCRAFT AVIONICS TECHNICIAN Work Phone: [facility] 09-14-2021 08:32-0400 Body weight 103.96 kg Ada Barbara BARREL TESTER AND DRAINER.AIRCRAFT AVIONICS TECHNICIAN Work Phone: [facility] 09-14-2021 08:32-0400 Diastolic blood pressure 64 mm[Hg] Ada Jimenez BARREL TESTER AND DRAINER.AIRCRAFT AVIONICS TECHNICIAN Work Phone: [facility] 09-14-2021 08:32-0400 Heart rate 80 /min Ada Jimenez BARREL TESTER AND DRAINER.AIRCRAFT AVIONICS TECHNICIAN Work Phone: [facility] 09-14-2021 08:32-0400 Respiratory rate 16 /min Ada Jimenez BARREL TESTER AND DRAINER.AIRCRAFT AVIONICS TECHNICIAN Work Phone: [facility] 09-14-2021 08:32-0400 SaO2% (BldA) [Mass fraction] 99 % Ada Barbara BARREL TESTER AND DRAINER.AIRCRAFT AVIONICS TECHNICIAN Work Phone: [facility] 09-14-2021 08:32-0400 Systolic blood pressure 120 mm[Hg] Ada Jimenez LATANYA.AIRCRAFT AVIONICS TECHNICIAN Work Phone: [facility] 07-16-2021 09:20-0400 Diastolic blood pressure 78 mm[Hg] Man Mayer MD Work Phone: [facility] 07-16-2021 09:20-0400 Systolic blood pressure 128 mm[Hg] Man Mayer MD Work Phone: [facility] 07-16-2021 08:51-0400 Body height 175.3 cm Man Mayer MD Work Phone: [facility] 07-16-2021 08:51-0400 Body temperature 96.8 [degF] Man Mayer MD Work Phone: [facility] 07-16-2021 08:51-0400 Body weight 117.94 kg Man Mayer MD Work Phone: [facility] 07-16-2021 08:51-0400 Heart rate 77 /min Man Mayer MD Work Phone: [facility] 07-16-2021 08:51-0400 Respiratory rate 12 /min Man Mayer MD Work Phone: [facility] 07-16-2021 08:51-0400 SaO2% (BldA) [Mass fraction] 96 % Man Mayer MD Work Phone: [facility] 08-09-2019 10:04-0400 BP Diastolic 77 mm[Hg] Breann Garcia MD Work Phone: [facility] Work Phone: Comment on above: Patient Position: Sitting 08-09-2019 10:04-0400 BP Systolic 138 mm[Hg] Breann Garcia MD Work Phone: [facility] Work Phone: Comment on above: Patient Position: Sitting 08-07-2019 08:12-0400 BMI (Body Mass Index) 36.92 kg/m2 Freddy Dodge LPN [facility] Work Phone: Comment on above: Pt will check vitals at home and then re port to [facility] when called 08-07-2019 08:12-0400 Body weight 113.4 kg Freddy Dodge LPN [facility] Work Phone: Comment on above: Pt will check vitals at home and then re port to [facility] when called 08-07-2019 08:12-0400 BSA (Body Surface Area) 2.27 m2 Freddy Dodge LPN [facility] Work Phone: Comment on above: Pt will check vitals at home and then re port to [facility] when called 08-07-2019 08:12-0400 Height 175.26 cm Freddy Dodge PURCHASING ASSOCIATE [facility] Work Phone: Comment on above: Pt will check vitals at home and then re port to [facility] when called 06-18-2019 09:33-0400 BMI (Body Mass Index) 36.18 kg/m2 Freddy Dodge LPN [facility] Work Phone: 06-18-2019 09:33-0400 Body Temperature 97.9 [degF] Freddy Dodge [facility] Work Phone: Comment on above: Method: Temporal 06-18-2019 09:33-0400 Body weight 111.14 kg Freddy Dodge LPN [facility] Work Phone: 06-18-2019 09:33-0400 BP Diastolic 86 mm[Hg] Freddy Dodge [facility] Work Phone: Comment on above: Patient Position: Sitting; Cuff Location : Left Arm; Cuff Size: Standard 06-18-2019 09:33-0400 BP Systolic 144 mm[Hg] Freddy Dodge LPN [facility] Work Phone: Comment on above: Patient Position: Sitting; Cuff Location : Left Arm; Cuff Size: Standard 06-18-2019 09:33-0400 BSA (Body Surface Area) 2.25 m2 Freddy Dodge PURCHASING ASSOCIATE [facility] Work Phone: 06-18-2019 09:33-0400 Height 175.26 cm Freddy Dodge LPN [facility] Work Phone: 06-18-2019 09:33-0400 Pulse (Heart Rate) 79 /min Freddy Dodge LPN [facility] Work Phone: Comment on above: Pattern: Regular 06-18-2019 09:33-0400 Pulse Oximetry 96 % Chasity Verma [facility] Work Phone: Comment on above: Room air 06-18-2019 09:33-0400 Respiratory Rate 17 /min Freddy Dodge PURCHASING ASSOCIATE [facility] Work Phone: Comment on above: Pattern: Unlabored 06-18-2019 09:33-0400 SaO2% (BldA) [Mass fraction] 96 % Freddy Dodge LPN [facility]; [facility] Work Phone: 05-18-2019 07:17-0500 BMI (Body Mass Index) 36.78 kg/m2 Freddy Dodge PURCHASING ASSOCIATE [facility] Work Phone: 05-18-2019 07:17-0500 Body Temperature 97 [degF] Freddy Dodge PURCHASING ASSOCIATE [facility] Work Phone: Comment on above: Method: Temporal 05-18-2019 07:17-0500 Body weight 112.97 kg Freddy Dodge LPN [facility] Work Phone: 05-18-2019 07:17-0500 BP Diastolic 70 mm[Hg] Freddy Dodge LPN [facility] Work Phone: Comment on above: Patient Position: Sitting; Cuff Location : Left Arm; Cuff Size: Standard 05-18-2019 07:17-0500 BP Systolic 132 mm[Hg] Freddy Dodge [facility] Work Phone: Comment on above: Patient Position: Sitting; Cuff Location : Left Arm; Cuff Size: Standard 05-18-2019 07:17-0500 BSA (Body Surface Area) 2.27 m2 Freddy Dodge PURCHASING ASSOCIATE [facility] Work Phone: 05-18-2019 07:17-0500 Height 175.26 cm Freddy Dodge LPN [facility] Work Phone: 05-18-2019 07:17-0500 Pulse (Heart Rate) 92 /min Freddy Dodge LPN [facility] Work Phone: Comment on above: Pattern: Regular 05-18-2019 07:17-0500 Pulse Oximetry 97 % Chasity Verma [facility] Work Phone: Comment on above: Room air 05-18-2019 07:17-0500 Respiratory Rate 17 /min Freddy Dodge LPN [facility] Work Phone: Comment on above: Pattern: Unlabored 05-18-2019 07:17-0500 SaO2% (BldA) [Mass fraction] 97 % Freddy Dodge LPN [facility]; [facility] Work Phone: 05-15-2019 09:10-0500 BMI (Body Mass Index) 36.48 kg/m2 Freddy Dodge LPN [facility] Work Phone: Comment on above: Recheck BP right arm sitting 148/98 05-15-2019 09:10-0500 Body Temperature 97.6 [degF] Freddy Dodge LPN [facility] Work Phone: Comment on above: Method: Temporal Recheck BP right arm sitting 148/98 05-15-2019 09:10-0500 Body weight 112.04 kg Freddy Dodge LPN [facility] Work Phone: Comment on above: Recheck BP right arm sitting 148/98 05-15-2019 09:10-0500 BP Diastolic 100 mm[Hg] Freddy Dodge LPN [facility] Work Phone: Comment on above: Patient Position: Sitting; Cuff Location : Left Arm; Cuff Size: Standard Recheck BP right arm sitting 148/98 05-15-2019 09:10-0500 BP Systolic 152 mm[Hg] Freddy Dodge LPN [facility] Work Phone: Comment on above: Patient Position: Sitting; Cuff Location : Left Arm; Cuff Size: Standard Recheck BP right arm sitting 148/98 05-15-2019 09:10-0500 BSA (Body Surface Area) 2.26 m2 Freddy Dodge LPN [facility] Work Phone: Comment on above: Recheck BP right arm sitting 148/98 05-15-2019 09:10-0500 Height 175.26 cm Freddy Dodge LPN [facility] Work Phone: Comment on above: Recheck BP right arm sitting 148/98 05-15-2019 09:10-0500 Pulse (Heart Rate) 83 /min Freddy Dodge LPN [facility] Work Phone: Comment on above: Pattern: Regular Recheck BP right arm sitting 148/98 05-15-2019 09:10-0500 Pulse Oximetry 98 % Chasity Shayleedonaldbrian [facility] Work Phone: Comment on above: Room air Recheck BP right arm sitting 148/98 05-15-2019 09:10-0500 Respiratory Rate 16 /min Frdedy Dodge LPN [facility] Work Phone: Comment on above: Pattern: Unlabored Recheck BP right arm sitting 148/98 05-15-2019 09:10-0500 SaO2% (BldA) [Mass fraction] 98 % Freddy Dodge LPN [facility]; [facility] Work Phone: 08-04-2018 07:14-0400 BMI (Body Mass Index) 33.23 kg/m2 Freddy Dodge LPN [facility] Work Phone: 08-04-2018 07:14-0400 Body Temperature 97.5 [degF] Freddy Dodge LPN [facility] Work Phone: Comment on above: Method: Temporal 08-04-2018 07:14-0400 Body weight 102.06 kg Freddy Dodge LPN [facility] Work Phone: 08-04-2018 07:14-0400 BP Diastolic 84 mm[Hg] Freddy Dodge LPN [facility] Work Phone: Comment on above: Patient Position: Sitting; Cuff Location : Left Arm; Cuff Size: Standard 08-04-2018 07:14-0400 BP Systolic 120 mm[Hg] Freddy Dodge LPN [facility] Work Phone: Comment on above: Patient Position: Sitting; Cuff Location : Left Arm; Cuff Size: Standard 08-04-2018 07:14-0400 BSA (Body Surface Area) 2.17 m2 Freddy Dodge LPN [facility] Work Phone: 08-04-2018 07:14-0400 Height 175.26 cm Freddy Dodge LPN [facility] Work Phone: 08-04-2018 07:14-0400 Pulse (Heart Rate) 82 /min Freddy Dodge LPN [facility] Work Phone: Comment on above: Pattern: Regular 08-04-2018 07:14-0400 Pulse Oximetry 95 % Chasity Luci [facility] Work Phone: Comment on above: Room air 08-04-2018 07:14-0400 Respiratory Rate 16 /min Freddy Dodge LPN [facility] Work Phone: Comment on above: Pattern: Unlabored 08-04-2018 07:14-0400 SaO2% (BldA) [Mass fraction] 95 % Freddy Dodge LPN [facility]; [facility] Work Phone: 08-04-2018 07:14-0400 Weight 102.06 kg Chasity Verma [facility] Work Phone: 07-10-2018 09:24-0400 BMI (Body Mass Index) 36.48 kg/m2 Freddy Dodge LPN [facility] Work Phone: 07-10-2018 09:24-0400 Body Temperature 97.7 [degF] Freddy Dodge LPN [facility] Work Phone: Comment on above: Method: Temporal 07-10-2018 09:24-0400 Body weight 112.04 kg Freddy Dodge LPN [facility] Work Phone: 07-10-2018 09:24-0400 BP Diastolic 86 mm[Hg] Freddy Dodge LPN [facility] Work Phone: Comment on above: Patient Position: Sitting; Cuff Location : Left Arm; Cuff Size: Standard 07-10-2018 09:24-0400 BP Systolic 140 mm[Hg] Freddy Dar [facility] Work Phone: Comment on above: Patient Position: Sitting; Cuff Location : Left Arm; Cuff Size: Standard 07-10-2018 09:24-0400 BSA (Body Surface Area) 2.26 m2 Freddy Dodge LPN [facility] Work Phone: 07-10-2018 09:24-0400 Height 175.26 cm Freddy Dodge LPN [facility] Work Phone: 07-10-2018 09:24-0400 Pulse (Heart Rate) 84 /min Freddy Dodge LPN [facility] Work Phone: Comment on above: Pattern: Regular 07-10-2018 09:24-0400 Pulse Oximetry 93 % Chasity Luci [facility] Work Phone: Comment on above: Room air 07-10-2018 09:24-0400 Respiratory Rate 18 /min Freddy Dodge LPN [facility] Work Phone: Comment on above: Pattern: Unlabored 07-10-2018 09:24-0400 SaO2% (BldA) [Mass fraction] 93 % Freddy Dodge LPN [facility]; [facility] Work Phone: 07-10-2018 09:24-0400 Weight 112.04 kg Chasity Verma [facility] Work Phone: 04-25-2018 08:18-0500 BMI (Body Mass Index) 36.48 kg/m2 Freddy Dodge LPN [facility] Work Phone: 04-25-2018 08:18-0500 Body Temperature 97 [degF] Freddy Dodge [facility] Work Phone: Comment on above: Method: Temporal 04-25-2018 08:18-0500 Body weight 112.04 kg Freddy Dodge L[facility] [facility] Work Phone: 04-25-2018 08:18-0500 BP Diastolic 80 mm[Hg] Freddy Dodge LPN [facility] Internal Medicine Work Phone: Comment on above: Patient Position: Sitting; Cuff Location : Left Arm; Cuff Size: Standard 04-25-2018 08:18-0500 BP Systolic 134 mm[Hg] Freddy Dodge FAVIO [facility] Internal Medicine Work Phone: Comment on above: Patient Position: Sitting; Cuff Location : Left Arm; Cuff Size: Standard 04-25-2018 08:18-0500 BSA (Body Surface Area) 2.26 m2 Freddy Dodge FAVIO [facility] Internal Medicine Work Phone: 04-25-2018 08:18-0500 Height 175.26 cm Freddy Dodge FAVIO [facility] Internal Medicine Work Phone: 04-25-2018 08:18-0500 Pulse (Heart Rate) 83 /min Freddy Dodge FAVIO [facility] Work Phone: Comment on above: Pattern: Regular 04-25-2018 08:18-0500 Pulse Oximetry 99 % Chasity Juneremigio [facility] Internal Medicine Work Phone: Comment on above: Room air 04-25-2018 08:18-0500 Respiratory Rate 17 /min Freddy Dodge FAVIO [facility] Internal Medicine Work Phone: Comment on above: Pattern: Unlabored 04-25-2018 08:18-0500 SaO2% (BldA) [Mass fraction] 99 % Freddy Dodge FAVIO [facility]; [facility] Work Phone: 04-25-2018 08:18-0500 Weight 112.04 kg Chasity Verma [facility] Internal Medicine Work Phone: 04-10-2018 10:42-0500 BMI (Body Mass Index) 36.48 kg/m2 FELIPE Forde LPN [facility] Work Phone: 04-10-2018 10:42-0500 Body Temperature 97.9 [degF] FELIPE Forde LPN [facility] Work Phone: Comment on above: Method: Temporal 04-10-2018 10:42-0500 Body weight 112.04 kg FELIPE Forde LPN [facility] Internal Medicine Work Phone: 04-10-2018 10:42-0500 BP Diastolic 80 mm[Hg] FELIPE Forde LPN [facility] Internal Medicine Work Phone: Comment on above: Patient Position: Sitting; Cuff Location : Left Arm; Cuff Size: Standard 04-10-2018 10:42-0500 BP Systolic 120 mm[Hg] FELIPE Forde FAVIO [facility] Work Phone: Comment on above: Patient Position: Sitting; Cuff Location : Left Arm; Cuff Size: Standard 04-10-2018 10:42-0500 BSA (Body Surface Area) 2.26 m2 FELIPE Maurisio STAHL [facility] Work Phone: 04-10-2018 10:42-0500 Height 175.26 cm FELIPE Forde LPN [facility] Work Phone: 04-10-2018 10:42-0500 Pulse (Heart Rate) 74 /min FELIPE Forde FAVIO [facility] Work Phone: Comment on above: Pattern: Regular 04-10-2018 10:42-0500 Pulse Oximetry 96 % Chasity Luci [facility] Internal Medicine Work Phone: Comment on above: Room air 04-10-2018 10:42-0500 Respiratory Rate 20 /min FELIPE Maurisio STAHL [facility] Work Phone: Comment on above: Pattern: Unlabored 04-10-2018 10:42-0500 SaO2% (BldA) [Mass fraction] 96 % FELIPE Forde LPN [facility]; [facility] Work Phone: 04-10-2018 10:42-0500 Weight 112.04 kg Chasity Verma [facility] Internal Medicine Work Phone: 01-02-2018 08:07-0400 BMI (Body Mass Index) 35.02 kg/m2 Ary Cornell RN [facility] Work Phone: 01-02-2018 08:07-0400 Body Temperature 97.5 [degF] Ary Cornell RN [facility] Work Phone: Comment on above: Method: Temporal 01-02-2018 08:07-0400 Body weight 107.56 kg Ary Cornell RN [facility] Work Phone: 01-02-2018 08:07-0400 BP Diastolic 98 mm[Hg] Ary Cornell RN [facility] Work Phone: Comment on above: Patient Position: Sitting; Cuff Location : Left Arm; Cuff Size: Standard 01-02-2018 08:07-0400 BP Systolic 160 mm[Hg] Ary Cornell RN [facility] Work Phone: Comment on above: Patient Position: Sitting; Cuff Location : Left Arm; Cuff Size: Standard 01-02-2018 08:07-0400 BSA (Body Surface Area) 2.22 m2 Ary Cornell RN [facility] Work Phone: 01-02-2018 08:07-0400 Height 175.26 cm Ary Cornell RN [facility] Work Phone: 01-02-2018 08:07-0400 Pulse (Heart Rate) 71 /min Ary Cornell RN [facility] Work Phone: Comment on above: Pattern: Regular 01-02-2018 08:07-0400 Pulse Oximetry 96 % Chasity Verma [facility] Work Phone: Comment on above: Room air 01-02-2018 08:07-0400 Respiratory Rate 16 /min Ary Cornell RN [facility] Work Phone: Comment on above: Pattern: Unlabored 01-02-2018 08:07-0400 SaO2% (BldA) [Mass fraction] 96 % Ary Cornell RN [facility]; [facility] Work Phone: 01-02-2018 08:07-0400 Weight 107.56 kg Chasity Luci [facility] Work Phone: 11-23-2017 08:01-0400 BMI (Body Mass Index) 35.02 kg/m2 Barbara Ascencio [facility] Internal Medicine Work Phone: 11-23-2017 08:01-0400 Body Temperature 98.2 [degF] Barbara Ascencio [facility] Work Phone: Comment on above: Method: Temporal 11-23-2017 08:01-0400 Body weight 107.56 kg Barbara Ascencio [facility] Internal Medicine Work Phone: 11-23-2017 08:01-0400 BP Diastolic 70 mm[Hg] Barbara Ascencio [facility] Work Phone: Comment on above: Patient Position: Sitting; Cuff Location : Left Arm; Cuff Size: Standard 11-23-2017 08:01-0400 BP Systolic 120 mm[Hg] Barbara Ascencio [facility] Work Phone: Comment on above: Patient Position: Sitting; Cuff Location : Left Arm; Cuff Size: Standard 11-23-2017 08:01-0400 BSA (Body Surface Area) 2.22 m2 Barbara Ascencio [facility] Work Phone: 11-23-2017 08:01-0400 Height 175.26 cm Barbara Ascencio [facility] Work Phone: 11-23-2017 08:01-0400 Pulse (Heart Rate) 81 /min Barbara Ascencio [facility] Work Phone: Comment on above: Pattern: Regular 11-23-2017 08:01-0400 Pulse Oximetry 97 % Chasity Verma [facility] Work Phone: Comment on above: Room air 11-23-2017 08:01-0400 Respiratory Rate 16 /min Barbara Ascencio [facility] Work Phone: Comment on above: Pattern: Unlabored 11-23-2017 08:01-0400 SaO2% (BldA) [Mass fraction] 97 % Barbara Ascencio [facility]; [facility] Work Phone: 11-23-2017 08:01-0400 Weight 107.56 kg Chasity Verma [facility] Work Phone: 09-06-2017 09:28-0400 BMI (Body Mass Index) 35 kg/m2 Briana Norma STAHL [facility] Work Phone: 09-06-2017 09:28-0400 Body Temperature 97 [degF] Briana Green LPN [facility] Work Phone: 09-06-2017 09:28-0400 Body weight 107.5 kg Briana Green LPN [facility] Work Phone: 09-06-2017 09:28-0400 BP Diastolic 88 mm[Hg] Briana Green LPN [facility] Work Phone: Comment on above: Patient Position: Sitting; Cuff Location : Left Arm; Cuff Size: Standard 09-06-2017 09:28-0400 BP Systolic 124 mm[Hg] Briana Green PURCH[employer]ING ASSOCIATE [facility] Work Phone: Comment on above: Patient Position: Sitting; Cuff Location : Left Arm; Cuff Size: Standard 09-06-2017 09:28-0400 BSA (Body Surface Area) 2.22 m2 Briana Green PURCHASING ASSOCIATE [facility] Work Phone: 09-06-2017 [id number] Height 175.26 cm Briana Slabree RBADLEYN [facility] Work Phone: 09-06-2017 09:28-0400 Pulse (Heart Rate) 76 /min Brianabrian Green PURCHASING ASSOCIATE [facility] Work Phone: Comment on above: Pattern: Regular 09-06-2017 09:28-0400 Pulse Oximetry 96 % Chasity Verma [facility] Internal Medicine Work Phone: Comment on above: Room air 09-06-2017 09:28-0400 Respiratory Rate 18 /min Briana Slabree BRADLEYN [facility] Work Phone: Comment on above: Pattern: Unlabored 09-06-2017 09:28-0400 SaO2% (BldA) [Mass fraction] 96 % Briana Norma STAHL [facility]; [facility] Work Phone: 09-06-2017 09:28-0400 Weight 107.5 kg Chasity Verma [facility] Work Phone: 06-07-2017 [id number] BMI (Body Mass Index) 36.62 kg/m2 Ary Cornell RN [facility] Work Phone: 06-07-2017 09:11-0500 Body Temperature 98.6 [degF] Ary Cornell RN [facility] Work Phone: Comment on above: Method: Temporal 06-07-2017 09:11-0500 Body weight 112.49 kg Ary L Long RN [facility] Work Phone: 06-07-2017 09:11-0500 BP Diastolic 84 mm[Hg] Ary Cornell RN [facility] Work Phone: Comment on above: Patient Position: Sitting; Cuff Location : Left Arm; Cuff Size: Standard 06-07-2017 09:11-0500 BP Systolic 142 mm[Hg] Ary Cornell RN [facility] Work Phone: Comment on above: Patient Position: Sitting; Cuff Location : Left Arm; Cuff Size: Standard 06-07-2017 09:11-0500 BSA (Body Surface Area) 2.26 m2 Ary Cornell RN [facility] Work Phone: 06-07-2017 09:11-0500 Height 175.26 cm Ary Cornell RN [facility] Work Phone: 06-07-2017 09:11-0500 Pulse (Heart Rate) 82 /min Ary Cornell RN [facility] Work Phone: Comment on above: Pattern: Regular 06-07-2017 09:11-0500 Pulse Oximetry 96 % Chasity Juneremigio [facility] Work Phone: Comment on above: Room air 06-07-2017 09:11-0500 Respiratory Rate 16 /min Ary Cornell RN [facility] Work Phone: Comment on above: Pattern: Unlabored 06-07-2017 09:11-0500 SaO2% (BldA) [Mass fraction] 96 % Ary Cornell RN [facility]; [facility] Work Phone: 06-07-2017 09:11-0500 Weight 112.49 kg Chasity Yepezbrian [facility] Work Phone: 12-28-2016 08:58-0400 BMI (Body Mass Index) 34 kg/m2 Arianna Wilson RN [facility] Work Phone: 12-28-2016 08:58-0400 Body Temperature 97 [degF] Arianna Wilson RN [facility] Work Phone: Comment on above: Method: Temporal 12-28-2016 08:58-0400 Body weight 104.44 kg Arianna Wilson RN [facility] Work Phone: 12-28-2016 08:58-0400 BP Diastolic 82 mm[Hg] Arianna Wilson RN [facility] Work Phone: Comment on above: Patient Position: Sitting; Cuff Location : Left Arm; Cuff Size: Large 12-28-2016 08:58-0400 BP Systolic 124 mm[Hg] Arianna Wilson RN [facility] Work Phone: Comment on above: Patient Position: Sitting; Cuff Location : Left Arm; Cuff Size: Large 12-28-2016 08:58-0400 BSA (Body Surface Area) 2.19 m2 Arianna Wilson RN [facility] Work Phone: 12-28-2016 08:58-0400 Height 175.26 cm Arianna Wilson RN [facility] Work Phone: 12-28-2016 08:58-0400 Pulse (Heart Rate) 80 /min Arianna Wilson RN [facility] Work Phone: Comment on above: Pattern: Regular 12-28-2016 08:58-0400 Pulse Oximetry 96 % Chasity Verma [facility] Internal Medicine Work Phone: Comment on above: Room air 12-28-2016 08:58-0400 Respiratory Rate 18 /min Arianna Wilson RN [facility] Work Phone: Comment on above: Pattern: Unlabored 12-28-2016 08:58-0400 SaO2% (BldA) [Mass fraction] 96 % Arianna Wilson RN [facility]; [facility] Work Phone: 12-28-2016 08:58-0400 Weight 104.44 kg Chasity Luci [facility] Internal [facility] Work Phone: 12-21-2016 09:20-0400 BMI (Body Mass Index) 34.85 kg/m2 Julia Villafana [facility] Internal Medicine Work Phone: 12-21-2016 09:20-0400 Body Temperature 97.2 [degF] Julia Villafana [facility] Internal [facility] Work Phone: Comment on above: Method: Tympanic 12-21-2016 09:20-0400 Body weight 107.05 kg Julia Villafana [facility] Internal [facility] Work Phone: 12-21-2016 09:20-0400 BP Diastolic 64 mm[Hg] Julia Villafana [facility] Internal [facility] Work Phone: Comment on above: Patient Position: Sitting; Cuff Location : Left Arm; Cuff Size: Standard 12-21-2016 09:20-0400 BP Systolic 122 mm[Hg] Julia Villafana [facility] Internal Medicine Work Phone: Comment on above: Patient Position: Sitting; Cuff Location : Left Arm; Cuff Size: Standard 12-21-2016 09:20-0400 BSA (Body Surface Area) 2.22 m2 Julia Villafana [facility] Internal [facility] Work Phone: 12-21-2016 09:20-0400 Height 175.26 cm Julia Villafana [facility] Internal [facility] Work Phone: 12-21-2016 09:20-0400 Pulse (Heart Rate) 80 /min Julia Villafana [facility] Internal [facility] Work Phone: Comment on above: Pattern: Regular 12-21-2016 09:20-0400 Pulse Oximetry 95 % Chasity Verma [facility] Internal [facility] Work Phone: Comment on above: Room air 12-21-2016 09:20-0400 Respiratory Rate 18 /min Julia Vilalfana [facility] Internal [facility] Work Phone: Comment on above: Pattern: Unlabored 12-21-2016 09:20-0400 SaO2% (BldA) [Mass fraction] 95 % Julia Villafana [facility]; [facility] Work Phone: 12-21-2016 09:20-0400 Weight 107.05 kg Chasity Verma [facility] Work Phone: 11-19-2016 09:56-0400 BMI (Body Mass Index) 34.85 kg/m2 Briana Green LPN [facility] Work Phone: 11-19-2016 09:56-0400 Body Temperature 98.2 [degF] Briana Ledezmarb PURCH[employer]ING ASSOCIATE [facility] Work Phone: 11-19-2016 09:56-0400 Body weight 107.05 kg Briana Ledezmarb PURCHASING ASSOCIATE [facility] Work Phone: 11-19-2016 09:56-0400 BP Diastolic 86 mm[Hg] Briana Slarb PURCHASING ASSOCIATE [facility] Work Phone: Comment on above: Patient Position: Sitting; Cuff Location : Left Arm; Cuff Size: Standard 11-19-2016 09:56-0400 BP Systolic 132 mm[Hg] Briana Slarb PURCHASING ASSOCIATE [facility] Work Phone: Comment on above: Patient Position: Sitting; Cuff Location : Left Arm; Cuff Size: Standard 11-19-2016 09:56-0400 BSA (Body Surface Area) 2.22 m2 Briana Slarb PURCHASING ASSOCIATE [facility] Work Phone: 11-19-2016 09:56-0400 Height 175.26 cm Briana Slarb PURCHASING ASSOCIATE [facility] Work Phone: 11-19-2016 09:56-0400 Pulse (Heart Rate) 83 /min Briana Slarb PURCHASING ASSOCIATE [facility] Work Phone: Comment on above: Pattern: Regular 11-19-2016 09:56-0400 Pulse Oximetry 95 % Chasity Verma [facility] Internal Medicine Work Phone: Comment on above: Room air 11-19-2016 09:56-0400 Respiratory Rate 17 /min Briana Darienrb PURCHASING ASSOCIATE [facility] Work Phone: Comment on above: Pattern: Unlabored 11-19-2016 09:56-0400 SaO2% (BldA) [Mass fraction] 95 % Briana Slarb PURCHASING ASSOCIATE [facility]; [facility] Work Phone: 11-19-2016 09:56-0400 Weight 107.05 kg Chasity Verma [facility] Work Phone: 11-03-2016 08:09-0400 BMI (Body Mass Index) 34.56 kg/m2 Briana Slarb PURCHASING ASSOCIATE [facility] Work Phone: 11-03-2016 08:09-0400 Body Temperature 97.8 [degF] Briana Green PURCHASING ASSOCIATE [facility] Work Phone: 11-03-2016 08:09-0400 Body weight 106.14 kg Briana Green PURCHASING ASSOCIATE [facility] Work Phone: 11-03-2016 08:09-0400 BP Diastolic 82 mm[Hg] Briana Darienrb PURCHASING ASSOCIATE [facility] Work Phone: Comment on above: Patient Position: Sitting; Cuff Location : Left Arm; Cuff Size: Standard 11-03-2016 08:09-0400 BP Systolic 124 mm[Hg] Briana Darienrb PURCHASING ASSOCIATE [facility] Work Phone: Comment on above: Patient Position: Sitting; Cuff Location : Left Arm; Cuff Size: Standard 11-03-2016 08:09-0400 BSA (Body Surface Area) 2.21 m2 Briana Ledezmarb PURCHASING ASSOCIATE [facility] Work Phone: 11-03-2016 08:09-0400 Height 175.26 cm Briana Green PURCHASING ASSOCIATE [facility] Work Phone: 11-03-2016 08:09-0400 Pulse (Heart Rate) 83 /min Briana Green PURCHASING ASSOCIATE [facility] Work Phone: Comment on above: Pattern: Regular 11-03-2016 08:09-0400 Pulse Oximetry 98 % Chasity Verma [facility] Work Phone: Comment on above: Room air 11-03-2016 08:09-0400 Respiratory Rate 16 /min Briana Green LPN [facility] Work Phone: Comment on above: Pattern: Unlabored 11-03-2016 08:09-0400 SaO2% (BldA) [Mass fraction] 98 % Briana Darienrb PURCHASING ASSOCIATE [facility]; [facility] Work Phone: 11-03-2016 08:09-0400 Weight 106.14 kg Chasity Verma [facility] Work Phone: 07-26-2016 14:13-0400 BMI (Body Mass Index) 34.17 kg/m2 Briana Green PURCHASING ASSOCIATE [facility] Work Phone: 07-26-2016 14:13-0400 Body Temperature 97.3 [degF] Briana Darienrb PURCHASING ASSOCIATE [facility] Work Phone: 07-26-2016 14:13-0400 Body weight 104.95 kg Briana Ledezmarb PURCHASING ASSOCIATE [facility] Work Phone: 07-26-2016 14:13-0400 BP Diastolic 84 mm[Hg] Briana Slarb PURCHASING ASSOCIATE [facility] Work Phone: Comment on above: Patient Position: Sitting; Cuff Location : Left Arm; Cuff Size: Standard 07-26-2016 14:13-0400 BP Systolic 132 mm[Hg] Briana Darienrb PURCHASING ASSOCIATE [facility] Work Phone: Comment on above: Patient Position: Sitting; Cuff Location : Left Arm; Cuff Size: Standard 07-26-2016 14:13-0400 BSA (Body Surface Area) 2.2 m2 Briana Darienrb PURCHASING ASSOCIATE [facility] Work Phone: 07-26-2016 14:130400 Height 175.26 cm Briana Slarb PURCHASING ASSOCIATE [facility] Work Phone: 07-26-2016 14:13-0400 Pulse (Heart Rate) 87 /min Briana Green PURCHASING ASSOCIATE [facility] Work Phone: Comment on above: Pattern: Regular 07-26-2016 14:13-0400 Pulse Oximetry 97 % Chasity Verma [facility] Work Phone: Comment on above: Room air 07-26-2016 14:13-0400 Respiratory Rate 17 /min Briana Darienrb PURCHASING ASSOCIATE [facility] Work Phone: Comment on above: Pattern: Unlabored 07-26-2016 14:13-0400 SaO2% (BldA) [Mass fraction] 97 % Briana Darienrb PURCHASING ASSOCIATE [facility]; [facility] Work Phone: 07-26-2016 14:13-0400 Weight 104.95 kg Chasity Verma [facility] Work Phone: 07-09-2016 13:44-0400 BMI (Body Mass Index) 34.87 kg/m2 Briana Green PURCHASING ASSOCIATE [facility] Work Phone: 07-09-2016 13:44-0400 Body Temperature 97.2 [degF] Briana Green PURCHASING ASSOCIATE [facility] Work Phone: 07-09-2016 13:44-0400 Body weight 107.11 kg Briana Green PURCHASING ASSOCIATE [facility] Work Phone: 07-09-2016 13:44-0400 BP Diastolic 84 mm[Hg] Briana Ledezmarb PURCHASING ASSOCIATE [facility] Work Phone: Comment on above: Patient Position: Sitting; Cuff Location : Left Arm; Cuff Size: Standard 07-09-2016 13:44-0400 BP Systolic 132 mm[Hg] Briana Ledezmarb PURCHASING ASSOCIATE [facility] Work Phone: Comment on above: Patient Position: Sitting; Cuff Location : Left Arm; Cuff Size: Standard 07-09-2016 13:44-0400 BSA (Body Surface Area) 2.22 m2 Briana Green PURCHASING ASSOCIATE [facility] Work Phone: 07-09-2016 13:44-0400 Height 175.26 cm Briana Green PURCHASING ASSOCIATE [facility] Work Phone: 07-09-2016 13:44-0400 Pulse (Heart Rate) 95 /min Briana Green PURCHASING ASSOCIATE [facility] Work Phone: Comment on above: Pattern: Regular 07-09-2016 13:44-0400 Pulse Oximetry 98 % Chasity Verma [facility] Work Phone: Comment on above: Room air 07-09-2016 13:44-0400 Respiratory Rate 17 /min Briana Green LPN [facility] Work Phone: Comment on above: Pattern: Unlabored 07-09-2016 13:44-0400 SaO2% (BldA) [Mass fraction] 98 % Briana Darienrb PURCHASING ASSOCIATE [facility]; [facility] Work Phone: 07-09-2016 13:44-0400 Weight 107.11 kg Chasity Verma [facility] Work Phone: 06-01-2016 08:19-0500 BMI (Body Mass Index) 34.7 kg/m2 Briana Green PURCHASING ASSOCIATE [facility] Work Phone: 06-01-2016 08:19-0500 Body Temperature 98.7 [degF] Briana Green PURCHASING ASSOCIATE [facility] Work Phone: 06-01-2016 08:19-0500 Body weight 106.6 kg Briana Green PURCHASING ASSOCIATE [facility] Work Phone: 06-01-2016 08:19-0500 BP Diastolic 88 mm[Hg] Briana Green PURCHASING ASSOCIATE [facility] Work Phone: Comment on above: Patient Position: Sitting; Cuff Location : Left Arm; Cuff Size: Standard 06-01-2016 08:19-0500 BP Systolic 136 mm[Hg] Briana Green PURCHASING ASSOCIATE [facility] Work Phone: Comment on above: Patient Position: Sitting; Cuff Location : Left Arm; Cuff Size: Standard 06-01-2016 08:19-0500 BSA (Body Surface Area) 2.21 m2 Briana Green PURCHASING ASSOCIATE [facility] Work Phone: 06-01-2016 08:19-0500 Height 175.26 cm Briana Slabree BRADLEYN [facility] Work Phone: 06-01-2016 08:19-0500 Pulse (Heart Rate) 80 /min Briana Green PURCHASING ASSOCIATE [facility] Work Phone: Comment on above: Pattern: Regular 06-01-2016 08:19-0500 Pulse Oximetry 95 % Chasity Verma [facility] Work Phone: Comment on above: Room air 06-01-2016 08:19-0500 Respiratory Rate 17 /min Briana Green PURCHASING ASSOCIATE [facility] Work Phone: Comment on above: Pattern: Unlabored 06-01-2016 08:19-0500 SaO2% (BldA) [Mass fraction] 95 % Briana Norma PURCHASING ASSOCIATE [facility]; [facility] Work Phone: 06-01-2016 08:19-0500 Weight 106.6 kg Chasity Verma [facility] Work Phone: 04-28-2016 08:06-0500 BMI (Body Mass Index) 34.26 kg/m2 Briana Slarb PURCHASING ASSOCIATE [facility] Work Phone: 04-28-2016 08:06-0500 Body Temperature 98.1 [degF] Briana Darienrb PURCHASING ASSOCIATE [facility] Work Phone: 04-28-2016 08:06-0500 Body weight 105.24 kg Briana Ledezmarb PURCHASING ASSOCIATE [facility] Work Phone: 04-28-2016 08:06-0500 BP Diastolic 84 mm[Hg] Briana Slarb PURCHASING ASSOCIATE [facility] Work Phone: Comment on above: Patient Position: Sitting; Cuff Location : Left Arm; Cuff Size: Standard 04-28-2016 08:06-0500 BP Systolic 130 mm[Hg] Briana Ledezmarb PURCHASING ASSOCIATE [facility] Work Phone: Comment on above: Patient Position: Sitting; Cuff Location : Left Arm; Cuff Size: Standard 04-28-2016 08:06-0500 BSA (Body Surface Area) 2.2 m2 Briana Darienrb PURCHASING ASSOCIATE [facility] Work Phone: 04-28-2016 08:06-0500 Height 175.26 cm Briana Slarb PURCHASING ASSOCIATE [facility] Work Phone: 04-28-2016 08:06-0500 Pulse (Heart Rate) 88 /min Briana Slarb PURCHASING ASSOCIATE [facility] Work Phone: Comment on above: Pattern: Regular 04-28-2016 08:06-0500 Pulse Oximetry 94 % Chasity Verma [facility] Work Phone: Comment on above: Room air 04-28-2016 08:06-0500 Respiratory Rate 16 /min Briana Darienrb PURCHASING ASSOCIATE [facility] Internal Medicine Work Phone: Comment on above: Pattern: Unlabored 04-28-2016 08:06-0500 SaO2% (BldA) [Mass fraction] 94 % Briana Norma STAHL [facility] Internal Medicine; [facility] Work Phone: 04-28-2016 08:06-0500 Weight 105.24 kg Chasity Verma [facility] Internal Medicine Work Phone: 04-01-2016 07:04-0500 BMI (Body Mass Index) 34.85 kg/m2 Julia Villafana [facility] Internal Medicine Work Phone: 04-01-2016 07:04-0500 Body Temperature 96.8 [degF] Julia [facility] Internal Medicine Work Phone: Comment on above: Method: Tympanic 04-01-2016 07:04-0500 Body weight 107.05 kg Julia [facility] Internal Medicine Work Phone: 04-01-2016 07:04-0500 BP Diastolic 62 mm[Hg] Julia [facility] Internal Medicine Work Phone: Comment on above: Patient Position: Sitting; Cuff Location : Left Arm; Cuff Size: Standard 04-01-2016 07:04-0500 BP Systolic 138 mm[Hg] Julia [facility] Internal Medicine Work Phone: Comment on above: Patient Position: Sitting; Cuff Location : Left Arm; Cuff Size: Standard 04-01-2016 07:04-0500 BSA (Body Surface Area) 2.22 m2 Julia [facility] Internal Medicine Work Phone: 04-01-2016 07:04-0500 [facility]: 04-01-2016 07:04-0500 Pulse (Heart Rate) 68 /min [facility] Work Phone: Comment on above: Pattern: Regular 04-01-2016 07:04-0500 Pulse Oximetry 95 % Chasity Verma [facility] Internal Medicine Work Phone: Comment on above: Room air 04-01-2016 07:04-0500 Respiratory Rate 18 /min Julia Villafana [facility] Work Phone: Comment on above: Pattern: Unlabored 04-01-2016 07:04-0500 SaO2% (BldA) [Mass fraction] 95 % Julia Villafana [facility]; [facility] Work Phone: 04-01-2016 07:04-0500 Weight 107.05 kg Chasity Verma [facility] Work Phone: 12-10-2015 07:42-0400 BMI (Body Mass Index) 35 kg/m2 Ary Cornell RN [facility] Work Phone: 12-10-2015 07:42-0400 Body Temperature 97.2 [degF] Ary Cornell RN [facility] Work Phone: Comment on above: Method: Temporal 12-10-2015 07:42-0400 Body weight 107.5 kg Ary Cornell RN [facility] Work Phone: 12-10-2015 07:42-0400 BP Diastolic 82 mm[Hg] Ary Cornell RN [facility] Work Phone: Comment on above: Patient Position: Sitting; Cuff Location : Left Arm; Cuff Size: Standard 12-10-2015 07:42-0400 BP Systolic 136 mm[Hg] Ary Cornell RN [facility] Work Phone: Comment on above: Patient Position: Sitting; Cuff Location : Left Arm; Cuff Size: Standard 12-10-2015 07:42-0400 BSA (Body Surface Area) 2.22 m2 Ary Cornell RN [facility] Work Phone: 12-10-2015 07:42-0400 Height 175.26 cm Ary Cornell RN [facility] Work Phone: 12-10-2015 07:42-0400 Pulse (Heart Rate) 78 /min Ary Cornell RN [facility] Work Phone: Comment on above: Pattern: Regular 12-10-2015 07:42-0400 Respiratory Rate 16 /min Ary Cornell RN [facility] Work Phone: Comment on above: Pattern: Unlabored 12-10-2015 07:42-0400 Weight 107.5 kg Chasity Verma [facility] Work Phone: 12-09-2015 08:57-0400 BMI (Body Mass Index) 35 kg/m2 Ary Cornell RN [facility] Work Phone: 12-09-2015 08:57-0400 Body Temperature 98 [degF] Ary Cornell RN [facility] Work Phone: Comment on above: Method: Temporal 12-09-2015 08:57-0400 Body weight 107.5 kg Ary Cornell RN [facility] Work Phone: 12-09-2015 08:57-0400 BP Diastolic 76 mm[Hg] Ary Cornell RN [facility] Work Phone: Comment on above: Patient Position: Sitting; Cuff Location : Left Arm; Cuff Size: Standard 12-09-2015 08:57-0400 BP Systolic 132 mm[Hg] Ary Cornell RN [facility] Work Phone: Comment on above: Patient Position: Sitting; Cuff Location : Left Arm; Cuff Size: Standard 12-09-2015 08:57-0400 BSA (Body Surface Area) 2.22 m2 Ary Cornell RN [facility] Work Phone: 12-09-2015 08:57-0400 Height 175.26 cm Ary Cornell RN [facility] Work Phone: 12-09-2015 08:57-0400 Pulse (Heart Rate) 82 /min Ary Cornell RN [facility] Work Phone: Comment on above: Pattern: Regular 12-09-2015 08:57-0400 Pulse Oximetry 93 % Chasity Verma [facility] Work Phone: Comment on above: Room air 12-09-2015 08:57-0400 Respiratory Rate 16 /min Ary Cornell RN [facility] Work Phone: Comment on above: Pattern: Unlabored 12-09-2015 08:57-0400 SaO2% (BldA) [Mass fraction] 93 % Ary Cornell RN [facility]; [facility] Work Phone: 12-09-2015 08:57-0400 Weight 107.5 kg Chasity Verma [facility] Work Phone: 11-12-2015 10:52-0400 BMI (Body Mass Index) 35 kg/m2 Ary Cornell RN [facility] Work Phone: 11-12-2015 10:52-0400 Body Temperature 97.7 [degF] Ary Cornell RN [facility] Work Phone: Comment on above: Method: Temporal 11-12-2015 10:52-0400 Body weight 107.5 kg Ary Cornell RN [facility] Work Phone: 11-12-2015 10:52-0400 BP Diastolic 76 mm[Hg] Ary Cornell RN [facility] Work Phone: Comment on above: Patient Position: Sitting; Cuff Location : Left Arm; Cuff Size: Standard 11-12-2015 10:52-0400 BP Systolic 128 mm[Hg] Ary Cornell RN [facility] Work Phone: Comment on above: Patient Position: Sitting; Cuff Location : Left Arm; Cuff Size: Standard 11-12-2015 10:52-0400 BSA (Body Surface Area) 2.22 m2 Ary Cornell RN [facility] Work Phone: 11-12-2015 10:52-0400 Height 175.26 cm Ary Cornell RN [facility] Work Phone: 11-12-2015 10:52-0400 Pulse (Heart Rate) 17 /min Ary Cornell RN [facility] Work Phone: Comment on above: Pattern: Regular 11-12-2015 10:52-0400 Respiratory Rate 17 /min Ary Cornell RN [facility] Work Phone: Comment on above: Pattern: Unlabored 11-12-2015 10:52-0400 Weight 107.5 kg Chasity Verma [facility] Work Phone: 09-09-2015 08:33-0400 BMI (Body Mass Index) 34.87 kg/m2 Briana Ledezmarb [employer]ING [employer]OCIATE [facility] Work Phone: 09-09-2015 08:33-0400 Body Temperature 97.2 [degF] Briana Slarb [employer]CH[employer]ING ASSOCIATE [facility] Work Phone: 09-09-2015 08:33-0400 Body weight 107.11 kg Briana Ledezmarb PURCH[employer]ING ASSOCIATE [facility] Work Phone: 09-09-2015 08:33-0400 BP Diastolic 84 mm[Hg] Briana Slarb [employer]CH[employer]ING ASSOCIATE [facility] Work Phone: Comment on above: Patient Position: Sitting; Cuff Location : Left Arm; Cuff Size: Standard 09-09-2015 08:33-0400 BP Systolic 136 mm[Hg] Briana Slarb PURCH[employer]ING ASSOCIATE [facility] Work Phone: Comment on above: Patient Position: Sitting; Cuff Location : Left Arm; Cuff Size: Standard 09-09-2015 08:33-0400 BSA (Body Surface Area) 2.22 m2 Briana Darienrb PURCH[employer]ING ASSOCIATE [facility] Work Phone: 09-09-2015 08:33-0400 Height 175.26 cm Briana Ledezmarb PURCHASING ASSOCIATE [facility] Work Phone: 09-09-2015 08:33-0400 Pulse (Heart Rate) 72 /min Briana Green PURCH[employer]ING ASSOCIATE [facility] Work Phone: Comment on above: Pattern: Regular 09-09-2015 08:33-0400 Pulse Oximetry 98 % Chasity Verma [facility] Work Phone: Comment on above: Room air 09-09-2015 08:33-0400 Respiratory Rate 16 /min Briana Green [employer]CH[employer]ING ASSOCIATE [facility] Work Phone: Comment on above: Pattern: Unlabored 09-09-2015 08:33-0400 SaO2% (BldA) [Mass fraction] 98 % Briana Slarb PURCH[employer]ING ASSOCIATE [facility]; [facility] Work Phone: 09-09-2015 08:33-0400 Weight 107.11 kg Chasity Ciesa [facility] Internal Medicine Work Phone: 07-30-2015 08:16-0400 BMI (Body Mass Index) 34.87 kg/m2 Briana Green PURCH[employer]ING ASSOCIATE [facility] Work Phone: 07-30-2015 08:16-0400 Body Temperature 97.4 [degF] Briana Green PURCH[employer]ING ASSOCIATE [facility] Work Phone: 07-30-2015 08:16-0400 Body weight 107.11 kg Briana Green PURCH[employer]ING ASSOCIATE [facility] Work Phone: 07-30-2015 08:16-0400 BP Diastolic 82 mm[Hg] Briana Ledezmarb PURCH[employer]ING ASSOCIATE [facility] Work Phone: Comment on above: Patient Position: Sitting; Cuff Location : Left Arm; Cuff Size: Standard 07-30-2015 08:16-0400 BP Systolic 124 mm[Hg] Brianabrian Green PURCHASING ASSOCIATE [facility] Work Phone: Comment on above: Patient Position: Sitting; Cuff Location : Left Arm; Cuff Size: Standard 07-30-2015 08:16-0400 BSA (Body Surface Area) 2.22 m2 Briana Ledezmabree BRADLEYN [facility] Work Phone: 07-30-2015 08:16-0400 Height 175.26 cm Briana Green PURCHASING ASSOCIATE [facility] Work Phone: 07-30-2015 08:16-0400 Pulse (Heart Rate) 76 /min Briana Green PURCHASING ASSOCIATE [facility] Work Phone: Comment on above: Pattern: Regular 07-30-2015 08:16-0400 Pulse Oximetry 95 % Chasity Verma [facility] Internal Medicine Work Phone: Comment on above: Room air 07-30-2015 08:16-0400 Respiratory Rate 16 /min Briana Green LPN [facility] Work Phone: Comment on above: Pattern: Unlabored 07-30-2015 08:16-0400 SaO2% (BldA) [Mass fraction] 95 % Briana Slarb PURCH[employer]ING ASSOCIATE [facility]; [facility] Work Phone: 07-30-2015 08:16-0400 Weight 107.11 kg Chasity Verma [facility] Work Phone: 07-14-2015 08:24-0400 BMI (Body Mass Index) 34.87 kg/m2 Briana Green PURCH[employer]ING ASSOCIATE [facility] Work Phone: 07-14-2015 08:24-0400 Body Temperature 97.8 [degF] Briana Ledezmarb PURCHASING ASSOCIATE [facility] Work Phone: 07-14-2015 08:24-0400 Body weight 107.11 kg Briana Green PURCHASING ASSOCIATE [facility] Work Phone: 07-14-2015 08:24-0400 BP Diastolic 84 mm[Hg] Briana Darienrb PURCHASING ASSOCIATE [facility] Work Phone: Comment on above: Patient Position: Sitting; Cuff Location : Left Arm; Cuff Size: Standard 07-14-2015 08:24-0400 BP Systolic 142 mm[Hg] Briana Ledezmarb PURCHASING ASSOCIATE [facility] Work Phone: Comment on above: Patient Position: Sitting; Cuff Location : Left Arm; Cuff Size: Standard 07-14-2015 08:24-0400 BSA (Body Surface Area) 2.22 m2 Briana Green PURCHASING ASSOCIATE [facility] Work Phone: 07-14-2015 08:24-0400 Height 175.26 cm Briana Green PURCHASING ASSOCIATE [facility] Work Phone: 07-14-2015 08:24-0400 Pulse (Heart Rate) 83 /min Briana Green LPN [facility] Work Phone: Comment on above: Pattern: Regular 07-14-2015 08:24-0400 Pulse Oximetry 95 % Chasity Verma [facility] Internal Medicine Work Phone: Comment on above: Room air 07-14-2015 08:24-0400 Respiratory Rate 18 /min Briana Green PURCHASING ASSOCIATE [facility] Work Phone: Comment on above: Pattern: Unlabored 07-14-2015 08:24-0400 SaO2% (BldA) [Mass fraction] 95 % Briana Darienrb PURCHASING ASSOCIATE [facility]; [facility] Work Phone: 07-14-2015 08:24-0400 Weight 107.11 kg Chasity Verma [facility] Work Phone: 06-30-2015 08:18-0400 BMI (Body Mass Index) 34.87 kg/m2 Briana Slarb PURCHASING ASSOCIATE [facility] Work Phone: 06-30-2015 08:18-0400 Body Temperature 97.4 [degF] Briana Slarb PURCHASING ASSOCIATE [facility] Work Phone: 06-30-2015 08:18-0400 Body weight 107.11 kg Briana Ledezmarb PURCHASING ASSOCIATE [facility] Work Phone: 06-30-2015 08:18-0400 BP Diastolic 82 mm[Hg] Briana Slarb PURCHASING ASSOCIATE [facility] Work Phone: Comment on above: Patient Position: Sitting; Cuff Location : Left Arm; Cuff Size: Standard 06-30-2015 08:18-0400 BP Systolic 132 mm[Hg] Briana Slarb PURCHASING ASSOCIATE [facility] Work Phone: Comment on above: Patient Position: Sitting; Cuff Location : Left Arm; Cuff Size: Standard 06-30-2015 08:18-0400 BSA (Body Surface Area) 2.22 m2 Briana Slarb PURCHASING ASSOCIATE [facility] Work Phone: 06-30-2015 08:18-0400 Height 175.26 cm Briana Slarb PURCHASING ASSOCIATE [facility] Work Phone: 06-30-2015 08:18-0400 Pulse (Heart Rate) 79 /min Briana Slarb PURCHASING ASSOCIATE [facility] Work Phone: Comment on above: Pattern: Regular 06-30-2015 08:18-0400 Pulse Oximetry 97 % Chasity Verma [facility] Work Phone: Comment on above: Room air 06-30-2015 08:18-0400 Respiratory Rate 18 /min Briana Slarb PURCHASING ASSOCIATE [facility] Work Phone: Comment on above: Pattern: Unlabored 06-30-2015 08:18-0400 SaO2% (BldA) [Mass fraction] 97 % Briana Green FAVIO [facility] Internal Medicine; [facility] Work Phone: 06-30-2015 08:18-0400 Weight 107.11 kg Chasity Verma [facility] Internal Medicine Work Phone: 06-16-2015 08:54-0500 BMI (Body Mass Index) 34.7 kg/m2 Sirisha Teran [facility] Internal Medicine Work Phone: 06-16-2015 08:54-0500 Body Temperature 98 [degF] Sirisha Teran [facility] Internal Medicine Work Phone: Comment on above: Method: Temporal 06-16-2015 08:54-0500 Body weight 106.6 kg Sirisha Teran [facility] Internal Medicine Work Phone: 06-16-2015 08:54-0500 BP Diastolic 86 mm[Hg] Sirisha Teran [facility] Internal Medicine Work Phone: Comment on above: Patient Position: Sitting; Cuff Location : Left Arm; Cuff Size: Large 06-16-2015 08:54-0500 BP Systolic 122 mm[Hg] Sirisha Teran [facility] Internal Medicine Work Phone: Comment on above: Patient Position: Sitting; Cuff Location : Left Arm; Cuff Size: Large 06-16-2015 08:54-0500 BSA (Body Surface Area) 2.21 m2 Sirisha Teran [facility] Internal Medicine Work Phone: 06-16-2015 08:54-0500 Height 175.26 cm Sirisha Teran [facility] Internal Medicine Work Phone: 06-16-2015 08:54-0500 Pulse (Heart Rate) 82 /min Sirisha Teran [facility] Internal Medicine Work Phone: Comment on above: Pattern: Regular 06-16-2015 08:54-0500 Pulse Oximetry 96 % Chasity Verma [facility] Internal Medicine Work Phone: Comment on above: Room air 03-07-2016 08:54-0500 Respiratory Rate 15 /min Sirisha Teran [facility] Work Phone: Comment on above: Pattern: Unlabored 06-16-2015 08:54-0500 SaO2% (BldA) [Mass fraction] 96 % Sirisha Teran [facility]; [facility] Work Phone: 06-16-2015 08:54-0500 Weight 106.6 kg Chasity Verma [facility] Work Phone: 04-29-2015 08:25-0500 BMI (Body Mass Index) 35.02 kg/m2 Briana Slarb PURCHASING ASSOCIATE [facility] Work Phone: 04-29-2015 08:25-0500 Body Temperature 97.3 [degF] Briana Slarb PURCHASING ASSOCIATE [facility] Work Phone: 04-29-2015 08:25-0500 Body weight 107.56 kg Briana Slarb PURCHASING ASSOCIATE [facility] Work Phone: 04-29-2015 08:25-0500 BP Diastolic 88 mm[Hg] Briana Slarb PURCHASING ASSOCIATE [facility] Work Phone: Comment on above: Patient Position: Sitting; Cuff Location : Left Arm; Cuff Size: Standard 04-29-2015 08:25-0500 BP Systolic 142 mm[Hg] Briana Slarb PURCHASING ASSOCIATE [facility] Work Phone: Comment on above: Patient Position: Sitting; Cuff Location : Left Arm; Cuff Size: Standard 04-29-2015 08:25-0500 BSA (Body Surface Area) 2.22 m2 Briana Slarb PURCHASING ASSOCIATE [facility] Work Phone: 04-29-2015 08:25-0500 Height 175.26 cm Briana Slarb PURCHASING ASSOCIATE [facility] Work Phone: 04-29-2015 08:25-0500 Pulse (Heart Rate) 68 /min Briana Slarb PURCHASING ASSOCIATE [facility] Work Phone: Comment on above: Pattern: Regular 04-29-2015 08:25-0500 Pulse Oximetry 97 % Chasity Verma [facility] Internal Medicine Work Phone: Comment on above: Room air 04-29-2015 08:25-0500 Respiratory Rate 18 /min Briana Green PURCHASING ASSOCIATE [facility] Work Phone: Comment on above: Pattern: Unlabored 04-29-2015 08:25-0500 SaO2% (BldA) [Mass fraction] 97 % Briana Green LPN [facility]; [facility] Work Phone: 04-29-2015 08:25-0500 Weight 107.56 kg Chasity Verma [facility] Internal Medicine Work Phone: 01-29-2015 08:10-0400 BMI (Body Mass Index) 33.54 kg/m2 Brianabrian Green PURCHASING ASSOCIATE [facility] Work Phone: 01-29-2015 08:10-0400 Body Temperature 97.1 [degF] Briana Slabree BRADLEYN [facility] Work Phone: 01-29-2015 08:10-0400 Body weight 103.02 kg Briana Green PURCHASING ASSOCIATE [facility] Work Phone: 01-29-2015 08:10-0400 BP Diastolic 88 mm[Hg] Briana Slarb PURCHASING ASSOCIATE [facility] Work Phone: Comment on above: Patient Position: Sitting; Cuff Location : Left Arm; Cuff Size: Standard 01-29-2015 08:10-0400 BP Systolic 148 mm[Hg] Briana Slarb PURCHASING ASSOCIATE [facility] Work Phone: Comment on above: Patient Position: Sitting; Cuff Location : Left Arm; Cuff Size: Standard 01-29-2015 08:10-0400 BSA (Body Surface Area) 2.18 m2 Briana Darienrb PURCHASING ASSOCIATE [facility] Work Phone: 01-29-2015 08:10-0400 Height 175.26 cm Briana Darienrb PURCHASING ASSOCIATE [facility] Work Phone: 01-29-2015 08:10-0400 Pulse (Heart Rate) 78 /min Briana Slabree BRADLEYN [facility] Work Phone: Comment on above: Pattern: Regular 01-29-2015 08:10-0400 Pulse Oximetry 95 % Chasity Verma [facility] Work Phone: Comment on above: Room air 01-29-2015 08:10-0400 Respiratory Rate 16 /min Briana Green PURCHASING ASSOCIATE [facility] Work Phone: Comment on above: Pattern: Unlabored 01-29-2015 08:10-0400 SaO2% (BldA) [Mass fraction] 95 % Briana Slarb PURCHASING ASSOCIATE [facility]; [facility] Work Phone: 01-29-2015 08:10-0400 Weight 103.02 kg Chasity Verma [facility] Work Phone: 01-21-2015 08:22-0400 BMI (Body Mass Index) 33.54 kg/m2 Briana Slarb PURCHASING ASSOCIATE [facility] Work Phone: 01-21-2015 08:22-0400 Body Temperature 98.7 [degF] Briana Slarb PURCHASING ASSOCIATE [facility] Work Phone: 01-21-2015 08:22-0400 Body weight 103.02 kg Briana Ledezmarb PURCHASING ASSOCIATE [facility] Work Phone: 01-21-2015 08:22-0400 BP Diastolic 88 mm[Hg] Briana Slarb PURCHASING ASSOCIATE [facility] Work Phone: Comment on above: Patient Position: Sitting; Cuff Location : Left Arm; Cuff Size: Standard 01-21-2015 08:22-0400 BP Systolic 150 mm[Hg] Briana Slarb PURCHASING ASSOCIATE [facility] Work Phone: Comment on above: Patient Position: Sitting; Cuff Location : Left Arm; Cuff Size: Standard 01-21-2015 08:22-0400 BSA (Body Surface Area) 2.18 m2 Briana Slarb PURCHASING ASSOCIATE [facility] Work Phone: 01-21-2015 08:22-0400 Height 175.26 cm Briana Slarb PURCHASING ASSOCIATE [facility] Work Phone: 01-21-2015 08:22-0400 Pulse (Heart Rate) 81 /min Briana Norma STAHL [facility] Work Phone: Comment on above: Pattern: Regular 01-21-2015 08:22-0400 Pulse Oximetry 96 % Chasity Verma [facility] Internal Medicine Work Phone: Comment on above: Room air 01-21-2015 08:22-0400 Respiratory Rate 18 /min Briana Norma STAHL [facility] Internal Medicine Work Phone: Comment on above: Pattern: Unlabored 01-21-2015 08:22-0400 SaO2% (BldA) [Mass fraction] 96 % Briana Green LPN [facility]; [facility] Work Phone: 01-21-2015 08:22-0400 Weight 103.02 kg Chasity Verma [facility] Internal Medicine Work Phone: 11-25-2014 11:39-0400 BMI (Body Mass Index) 32.19 kg/m2 Sirisha Teran [facility] Internal Medicine Work Phone: 11-25-2014 11:39-0400 Body Temperature 97.4 [degF] Sirisha Teran [facility] Internal Medicine Work Phone: Comment on above: Method: Temporal 11-25-2014 11:39-0400 Body weight 98.88 kg Sirisha Teran [facility] Internal Medicine Work Phone: 11-25-2014 11:39-0400 BP Diastolic 84 mm[Hg] Sirisha Teran [facility] Internal Medicine Work Phone: Comment on above: Patient Position: Sitting; Cuff Location : Left Arm; Cuff Size: Large 11-25-2014 11:39-0400 BP Systolic 122 mm[Hg] Sirisha Teran [facility] Internal Medicine Work Phone: Comment on above: Patient Position: Sitting; Cuff Location : Left Arm; Cuff Size: Large 11-25-2014 11:39-0400 BSA (Body Surface Area) 2.14 m2 Sirisha Teran [facility] Internal Medicine Work Phone: 11-25-2014 11:39-0400 Height 175.26 cm Sirisha Teran [facility] Medicine Work Phone: 11-25-2014 11:39-0400 Pulse (Heart Rate) 74 /min Sirisha Teran [facility] Work Phone: Comment on above: Pattern: Regular 11-25-2014 11:39-0400 Respiratory Rate 16 /min Sirisha Teran [facility] Internal Medicine Work Phone: Comment on above: Pattern: Unlabored 11-25-2014 11:39-0400 Weight 98.88 kg Chasity Verma [facility] Internal Medicine Work Phone: 07-26-2014 08:18-0400 BMI (Body Mass Index) 30.42 kg/m2 Sirisha Teran [facility] Internal Medicine Work Phone: 07-26-2014 08:18-0400 Body Temperature 97.9 [degF] Sirisha Teran [facility] Internal Medicine Work Phone: 07-26-2014 08:18-0400 Body weight 93.44 kg Sirisha Teran [facility] Internal Medicine Work Phone: 07-26-2014 08:18-0400 BP Diastolic 80 mm[Hg] Sirisha Teran [facility] Internal Medicine Work Phone: Comment on above: Patient Position: Sitting; Cuff Location : Left Arm; Cuff Size: Large 07-26-2014 08:18-0400 BP Systolic 102 mm[Hg] Sirisha Teran [facility] Internal Medicine Work Phone: Comment on above: Patient Position: Sitting; Cuff Location : Left Arm; Cuff Size: Large 07-26-2014 08:18-0400 BSA (Body Surface Area) 2.09 m2 Sirisha Teran [facility] Internal Medicine Work Phone: 07-26-2014 08:18-0400 Height 175.26 cm Sirisha Teran [facility] Internal Medicine Work Phone: 07-26-2014 08:18-0400 Pulse (Heart Rate) 64 /min Sirisha Coronadogarcía [facility] Work Phone: Comment on above: Pattern: Regular 07-26-2014 08:18-0400 Respiratory Rate 16 /min Sirisha Teran [facility] Internal Medicine Work Phone: Comment on above: Pattern: Unlabored 07-26-2014 08:18-0400 Weight 93.44 kg Chasity Verma [facility] Internal Medicine Work Phone: 05-29-2014 15:43-0500 BMI (Body Mass Index) 31.6 kg/m2 Sirisha Teran [facility] Internal Medicine Work Phone: 05-29-2014 15:43-0500 Body Temperature 98.3 [degF] Sirisha Jensenmilliegarcía [facility] Internal Medicine Work Phone: 05-29-2014 15:43-0500 Body weight 97.07 kg Sirisha Teran [facility] Internal Medicine Work Phone: 05-29-2014 15:43-0500 BP Diastolic 86 mm[Hg] Sirisha Jensenemily [facility] Internal Medicine Work Phone: Comment on above: Patient Position: Sitting; Cuff Location : Left Arm; Cuff Size: Large 05-29-2014 15:43-0500 BP Systolic 122 mm[Hg] Sirisha Teran [facility] Internal Medicine Work Phone: Comment on above: Patient Position: Sitting; Cuff Location : Left Arm; Cuff Size: Large 05-29-2014 15:43-0500 BSA (Body Surface Area) 2.13 m2 Sirisha Jensenemily [facility] Internal Medicine Work Phone: 05-29-2014 15:43-0500 Height 175.26 cm Sirisha Jensenemily [facility] Internal Medicine Work Phone: 05-29-2014 15:43-0500 Pulse (Heart Rate) 100 /min Sirisha Jensenemily [facility] Internal Medicine Work Phone: Comment on above: Pattern: Regular 05-29-2014 15:43-0500 Respiratory Rate 16 /min Sirisha Parul [facility] Internal Medicine Work Phone: Comment on above: Pattern: Unlabored 05-29-2014 15:43-0500 Weight 97.07 kg Chasity Verma [facility] Internal Medicine Work Phone: 03-22-2014 07:39-0500 BMI (Body Mass Index) 29.98 kg/m2 Shannon Caicedo LPN [facility] Work Phone: 03-22-2014 07:39-0500 Body Temperature 97.4 [degF] Shannon Caicedo LPN Comprehens[facility] e Internal Medicine Work Phone: Comment on above: Method: Oral 03-22-2014 07:39-0500 Body weight 92.08 kg Shannon Caicedo LPN [facility] Work Phone: 03-22-2014 07:39-0500 BP Diastolic 74 mm[Hg] Shannon Caicedo LPN [facility] Work Phone: Comment on above: Patient Position: Sitting; Cuff Location : Left Arm; Cuff Size: Standard 03-22-2014 07:39-0500 BP Systolic 120 mm[Hg] Shannon Caicedo LPN [facility] Work Phone: Comment on above: Patient Position: Sitting; Cuff Location : Left Arm; Cuff Size: Standard 03-22-2014 07:39-0500 BSA (Body Surface Area) 2.08 m2 Shannon Caicedo LPN [facility] Work Phone: 03-22-2014 07:39-0500 Height 175.26 cm Shannon Caicedo LPN [facility] Work Phone: 03-22-2014 07:39-0500 Pulse (Heart Rate) 68 /min Shannon Caicedo LPN [facility] Internal Medicine Work Phone: Comment on above: Pattern: Regular 03-22-2014 07:39-0500 Pulse Oximetry 94 % Chasity Verma [facility] Internal Medicine Work Phone: Comment on above: Room air 03-22-2014 07:39-0500 Respiratory Rate 16 /min Shannon Caicedo LPN Comprehens[facility] e Internal Medicine Work Phone: 03-22-2014 07:39-0500 SaO2% (BldA) [Mass fraction] 94 % Shannon Caicedo LPN [facility]; [facility] Work Phone: 03-22-2014 07:39-0500 Weight 92.08 kg Chasity Verma [facility] Internal Medicine Work Phone: 11-30-2013 12:02-0400 BMI (Body Mass Index) 29.98 kg/m2 Julia Villafana [facility] Internal Medicine Work Phone: 11-30-2013 12:02-0400 Body Temperature 98 [degF] Julia Villafana [facility] Internal Medicine Work Phone: Comment on above: Method: Oral 11-30-2013 12:02-0400 Body weight 92.08 kg Julia Villafana [facility] Internal Medicine Work Phone: 11-30-2013 12:02-0400 BP Diastolic 72 mm[Hg] Julia Villafana [facility] Internal Medicine Work Phone: Comment on above: Patient Position: Sitting; Cuff Location : Left Arm; Cuff Size: Standard 11-30-2013 12:02-0400 BP Systolic 116 mm[Hg] Julia Villafana [facility] Internal Medicine Work Phone: Comment on above: Patient Position: Sitting; Cuff Location : Left Arm; Cuff Size: Standard 11-30-2013 12:02-0400 BSA (Body Surface Area) 2.08 m2 Julia Villafana [facility] Internal Medicine Work Phone: 11-30-2013 12:02-0400 Height 175.26 cm Julia Villafana [facility] Internal Medicine Work Phone: 11-30-2013 12:02-0400 Pulse (Heart Rate) 89 /min Julia Villafana [facility] Internal Medicine Work Phone: Comment on above: Pattern: Regular 11-30-2013 12:02-0400 Pulse Oximetry 97 % Chasity Verma [facility] Internal Medicine Work Phone: Comment on above: Room air 11-30-2013 12:02-0400 Respiratory Rate 18 /min Julia Villafana [facility] Internal Medicine Work Phone: Comment on above: Pattern: Unlabored 11-30-2013 12:02-0400 SaO2% (BldA) [Mass fraction] 97 % Julia Broderick [facility] Internal Medicine; [facility] Work Phone: 11-30-2013 12:02-0400 Weight 92.08 kg Chasity Verma [facility] Internal Medicine Work Phone: 11-19-2013 15:17-0400 BMI (Body Mass Index) 29.98 kg/m2 Sirisha Parul [facility] Internal Medicine Work Phone: 11-19-2013 15:17-0400 Body Temperature 98.2 [degF] Sirisha Parul [facility] Internal Medicine Work Phone: 11-19-2013 15:17-0400 Body weight 92.08 kg Sirisha Parul [facility] Internal Medicine Work Phone: 11-19-2013 15:17-0400 BP Diastolic 80 mm[Hg] Sirisha Teran [facility] Internal Medicine Work Phone: Comment on above: Patient Position: Sitting; Cuff Location : Left Arm; Cuff Size: Large 11-19-2013 15:17-0400 BP Systolic 110 mm[Hg] Sirisha Parul [facility] Internal Medicine Work Phone: Comment on above: Patient Position: Sitting; Cuff Location : Left Arm; Cuff Size: Large 11-19-2013 15:17-0400 BSA (Body Surface Area) 2.08 m2 Sirisha Teran [facility] Internal Medicine Work Phone: 11-19-2013 15:17-0400 Height 175.26 cm Sirisha Teran [facility] Internal Medicine Work Phone: 11-19-2013 15:17-0400 Pulse (Heart Rate) 86 /min [facility]ul [facility] Work Phone: Comment on above: Pattern: Regular 11-19-2013 15:17-0400 Respiratory Rate 16 /min Sirisha Teran [facility] Internal Medicine Work Phone: Comment on above: Pattern: Unlabored 11-19-2013 15:17-0400 Weight 92.08 kg Chasity Verma [facility] Work Phone: 08-13-2013 08:14-0400 BMI (Body Mass Index) 32.64 kg/m2 Ary Cornell RN [facility] Work Phone: 08-13-2013 08:14-0400 Body Temperature 96.7 [degF] Ary Cornell RN [facility] Work Phone: Comment on above: Method: Temporal 08-13-2013 08:140400 Body weight 100.25 kg Ary Cornell RN [facility] Work Phone: 08-13-2013 08:14-0400 BP Diastolic 76 mm[Hg] Ary Cornell RN [facility] Work Phone: Comment on above: Patient Position: Sitting; Cuff Location : Left Arm; Cuff Size: Standard 08-13-2013 08:140400 BP Systolic 122 mm[Hg] Ary Cornell RN [facility] Work Phone: Comment on above: Patient Position: Sitting; Cuff Location : Left Arm; Cuff Size: Standard 08-13-2013 08:140400 BSA (Body Surface Area) 2.16 m2 Ary Cornell RN [facility] Work Phone: 08-13-2013 08:140400 Height 175.26 cm Ary Cornell RN [facility] Work Phone: 08-13-2013 08:14-0400 Pulse (Heart Rate) 76 /min Ary Cornell RN [facility] Work Phone: Comment on above: Pattern: Regular 08-13-2013 08:14-0400 Pulse Oximetry 98 % Chasity Verma [facility] Work Phone: Comment on above: Room air 08-13-2013 08:14-0400 Respiratory Rate 16 /min Ary Cornell RN [facility] Work Phone: Comment on above: Pattern: Unlabored 08-13-2013 08:14-0400 SaO2% (BldA) [Mass fraction] 98 % Ary Cornell RN [facility]; [facility] Work Phone: 08-13-2013 08:140400 Weight 100.25 kg Chasity Verma [facility] Internal Medicine Work Phone: 07-18-2013 14:24-0400 BMI (Body Mass Index) 32.64 kg/m2 Sirisha Teran [facility] Internal Medicine Work Phone: 07-18-2013 14:24-0400 Body Temperature 97.4 [degF] Sirisha Jensenemily [facility] Internal Medicine Work Phone: 07-18-2013 14:24-0400 Body weight 100.25 kg Sirisha Teran [facility] Internal Medicine Work Phone: 07-18-2013 14:24-0400 BP Diastolic 80 mm[Hg] Sirisha Jensenemily [facility] Internal Medicine Work Phone: Comment on above: Patient Position: Sitting; Cuff Location : Left Arm; Cuff Size: Large 07-18-2013 14:24-0400 BP Systolic 114 mm[Hg] Sirisha Jensenemily [facility] Internal Medicine Work Phone: Comment on above: Patient Position: Sitting; Cuff Location : Left Arm; Cuff Size: Large 07-18-2013 14:24-0400 BSA (Body Surface Area) 2.16 m2 Sirisha Jensenemily [facility] Internal Medicine Work Phone: 07-18-2013 14:24-0400 Height 175.26 cm Sirisha Teran [facility] Internal Medicine Work Phone: 07-18-2013 14:24-0400 Pulse (Heart Rate) 86 /min Sirisha Teran [facility] Internal Medicine Work Phone: Comment on above: Pattern: Regular 07-18-2013 14:24-0400 Respiratory Rate 16 /min Sirisha Parul [facility] Internal Medicine Work Phone: Comment on above: Pattern: Unlabored 07-18-2013 14:24-0400 Weight 100.25 kg Chasity Verma [facility] Internal Medicine Work Phone: 06-25-2013 15:05-0400 BMI (Body Mass Index) 33.23 kg/m2 FELIPE Forde LPN [facility] Work Phone: 06-25-2013 15:05-0400 Body Temperature 97.6 [degF] FELIPE Forde LPN [facility] Medicine Work Phone: Comment on above: Method: Oral 06-25-2013 15:05-0400 Body weight 102.06 kg FELIPE Forde LPN [facility] Work Phone: 06-25-2013 15:05-0400 BP Diastolic 78 mm[Hg] FELIPE Forde LPN [facility] Work Phone: Comment on above: Patient Position: Sitting; Cuff Location : Left Arm; Cuff Size: Standard 06-25-2013 15:05-0400 BP Systolic 120 mm[Hg] FELIPE Forde LPN [facility] Work Phone: Comment on above: Patient Position: Sitting; Cuff Location : Left Arm; Cuff Size: Standard 06-25-2013 15:05-0400 BSA (Body Surface Area) 2.17 m2 FELIPE Forde LPN [facility] Work Phone: 06-25-2013 15:05-0400 Height 175.26 cm FELIPE Forde LPN [facility] Work Phone: 06-25-2013 15:05-0400 Pulse (Heart Rate) 74 /min FELIPE Forde LPN [facility] Internal Medicine Work Phone: Comment on above: Pattern: Regular 06-25-2013 15:05-0400 Respiratory Rate 20 /min FELIPE Forde LPN Comprehens[facility] e Internal Medicine Work Phone: Comment on above: Pattern: Unlabored 06-25-2013 15:05-0400 Weight 102.06 kg Chasity Verma [facility] Work Phone: 04-26-2013 09:41-0500 BMI (Body Mass Index) 33.23 kg/m2 FELIPE Frode LPN [facility] Work Phone: 04-26-2013 09:41-0500 Body Temperature 98.2 [degF] FELIPE Forde LPN [facility] Medicine Work Phone: Comment on above: Method: Oral 04-26-2013 09:41-0500 Body weight 102.06 kg FELIPE Forde LPN [facility] Work Phone: 04-26-2013 09:41-0500 BP Diastolic 84 mm[Hg] FELIPE Fodre LPN [facility] Work Phone: Comment on above: Patient Position: Sitting; Cuff Location : Left Arm; Cuff Size: Standard 04-26-2013 09:41-0500 BP Systolic 124 mm[Hg] FELIPE Forde LPN [facility] Work Phone: Comment on above: Patient Position: Sitting; Cuff Location : Left Arm; Cuff Size: Standard 04-26-2013 09:41-0500 BSA (Body Surface Area) 2.17 m2 FELIPE Forde LPN [facility] Work Phone: 04-26-2013 09:41-0500 Height 175.26 cm FELIPE Forde LPN [facility] Work Phone: 04-26-2013 09:41-0500 Pulse (Heart Rate) 74 /min FELIPE Forde LPN [facility] Internal Medicine Work Phone: Comment on above: Pattern: Regular 04-26-2013 09:41-0500 Respiratory Rate 18 /min FELIPE Forde LPN [facility] Medicine Work Phone: Comment on above: Pattern: Unlabored 04-26-2013 09:41-0500 Weight 102.06 kg Chasity Verma [facility] Work Phone: 03-07-2013 11:19-0500 BMI (Body Mass Index) 33.23 kg/m2 Barbara Clifford GRANTS ADMINISTRATOR [facility] Work Phone: 03-07-2013 11:19-0500 Body Temperature 98.7 [degF] Barbara Clifford GRANTS ADMINISTRATOR Comprehensi [facility] Internal Medicine Work Phone: Comment on above: Method: Oral 03-07-2013 11:19-0500 Body weight 102.06 kg Barbara Clifford CMA Comprehens[facility] Medicine Work Phone: 03-07-2013 11:19-0500 BP Diastolic 98 mm[Hg] Barbara Clifford [facility] Comprehensiv e Internal Medicine Work Phone: Comment on above: Patient Position: Sitting; Cuff Location : Left Arm; Cuff Size: Standard 03-07-2013 11:19-0500 BP Systolic 140 mm[Hg] Barbara Clifford [facility] Comprehensiv e Internal Medicine Work Phone: Comment on above: Patient Position: Sitting; Cuff Location : Left Arm; Cuff Size: Standard 03-07-2013 11:19-0500 BSA (Body Surface Area) 2.17 m2 Barbara Clifford [facility] Work Phone: 03-07-2013 11:19-0500 Height 175.26 cm Barbara Clifford [facility] Comprehensiv e Internal Medicine Work Phone: 03-07-2013 11:19-0500 Weight 102.06 kg Chasity Verma [facility] Work Phone: 01-29-2013 08:21-0400 BMI (Body Mass Index) 33.23 kg/m2 Mya Santoyoel [facility] Work Phone: 01-29-2013 08:21-0400 Body Temperature 97.4 [degF] Mya Questel [employer]ING ASSOCIATE [facility] Work Phone: 01-29-2013 08:21-0400 Body weight 102.06 kg Mya Santoyoel [employer]CH[employer]ING ASSOCIATE [facility] Work Phone: 01-29-2013 08:21-0400 BP Diastolic 82 mm[Hg] Mya Questel PURCHASING ASSOCIATE [facility] Work Phone: Comment on above: Patient Position: Sitting; Cuff Location : Left Arm; Cuff Size: Standard 01-29-2013 08:21-0400 BP Systolic 144 mm[Hg] Mya Questel PURCHASING ASSOCIATE [facility] Work Phone: Comment on above: Patient Position: Sitting; Cuff Location : Left Arm; Cuff Size: Standard 01-29-2013 08:21-0400 BSA (Body Surface Area) 2.17 m2 Mya Smith LPN [facility] Work Phone: 01-29-2013 08:21-0400 Height 175.26 cm Mya Smith LPN [facility] Work Phone: 01-29-2013 08:21-0400 Pulse (Heart Rate) 68 /min Mya Smith LPN Comprehens[facility] Medicine Work Phone: Comment on above: Pattern: Regular 01-29-2013 08:21-0400 Weight 102.06 kg Chasity Verma [facility] Internal Medicine Work Phone: 11-13-2012 15:59-0400 BMI (Body Mass Index) 32.49 kg/m2 Sirisha Coronadogarcía [facility] Internal Medicine Work Phone: 11-13-2012 15:59-0400 Body Temperature 96.8 [degF] Sirisha Jensenemily [facility] Internal Medicine Work Phone: 11-13-2012 15:59-0400 Body weight 99.79 kg Sirisha Jensenemily [facility] Internal Medicine Work Phone: 11-13-2012 15:59-0400 BP Diastolic 84 mm[Hg] Sirisha Coronadogarcía [facility] Internal Medicine Work Phone: Comment on above: Patient Position: Sitting; Cuff Location : Left Arm; Cuff Size: Large 11-13-2012 15:59-0400 BP Systolic 126 mm[Hg] Sirisha Coronadogarcía [facility] Internal Medicine Work Phone: Comment on above: Patient Position: Sitting; Cuff Location : Left Arm; Cuff Size: Large 11-13-2012 15:59-0400 BSA (Body Surface Area) 2.15 m2 Sirisha Coronadogarcía [facility] Internal Medicine Work Phone: 11-13-2012 15:59-0400 Height 175.26 cm Sirisha Jensenemily [facility] Internal Medicine Work Phone: 11-13-2012 15:59-0400 Pulse (Heart Rate) 82 /min Sirisha Parul [facility] Medicine Work Phone: Comment on above: Pattern: Regular 11-13-2012 15:59-0400 Respiratory Rate 18 /min Sirisha Teran [facility] Work Phone: Comment on above: Pattern: Unlabored 11-13-2012 15:59-0400 Weight 99.79 kg Chasity Verma [facility] Work Phone: 07-13-2012 08:23-0400 BMI (Body Mass Index) 33.08 kg/m2 Ary Cornell RN [facility] Work Phone: 07-13-2012 08:23-0400 Body Temperature 96.4 [degF] Ary Cornell RN [facility] Work Phone: Comment on above: Method: Temporal 07-13-2012 08:23-0400 Body weight 101.61 kg Ary Cornell RN [facility] Work Phone: 07-13-2012 08:23-0400 BP Diastolic 84 mm[Hg] Ary Cornell RN [facility] Work Phone: Comment on above: Patient Position: Sitting; Cuff Location : Left Arm; Cuff Size: Standard 07-13-2012 08:23-0400 BP Systolic 124 mm[Hg] Ary Cornell RN [facility] Work Phone: Comment on above: Patient Position: Sitting; Cuff Location : Left Arm; Cuff Size: Standard 07-13-2012 08:23-0400 BSA (Body Surface Area) 2.17 m2 Ary Cornell RN [facility] Work Phone: 07-13-2012 08:23-0400 Height 175.26 cm Ary Cornell RN [facility] Work Phone: 07-13-2012 08:23-0400 Pulse (Heart Rate) 81 /min Ary Cornell RN [facility] Work Phone: Comment on above: Pattern: Regular 07-13-2012 08:23-0400 Pulse Oximetry 98 % Chasity Verma [facility] Work Phone: Comment on above: Room air 07-13-2012 08:23-0400 Respiratory Rate 16 /min Ary Cornell RN [facility] Work Phone: Comment on above: Pattern: Unlabored 07-13-2012 08:23-0400 SaO2% (BldA) [Mass fraction] 98 % Ary Cornell RN [facility]; [facility] Work Phone: 07-13-2012 08:23-0400 Weight 101.61 kg Chasity Verma [facility] Internal Medicine Work Phone: 05-25-2012 08:52-0500 BMI (Body Mass Index) 33.08 kg/m2 Sirisha Parul [facility] Internal Medicine Work Phone: 05-25-2012 08:52-0500 Body Temperature 97.3 [degF] Sirisha Teran [facility] Internal Medicine Work Phone: 05-25-2012 08:52-0500 Body weight 101.61 kg Sirisha Parul [facility] Internal Medicine Work Phone: 05-25-2012 08:52-0500 BP Diastolic 78 mm[Hg] Sirisha Teran [facility] Internal Medicine Work Phone: Comment on above: Patient Position: Sitting; Cuff Location : Left Arm; Cuff Size: Large 05-25-2012 08:52-0500 BP Systolic 112 mm[Hg] Sirisha Teran [facility] Internal Medicine Work Phone: Comment on above: Patient Position: Sitting; Cuff Location : Left Arm; Cuff Size: Large 05-25-2012 08:52-0500 BSA (Body Surface Area) 2.17 m2 Sirisha Teran [facility] Internal Medicine Work Phone: 05-25-2012 08:52-0500 Height 175.26 cm Sirisha Teran [facility] Internal Medicine Work Phone: 05-25-2012 08:52-0500 Pulse (Heart Rate) 78 /min Sirisha Teran [facility] Work Phone: Comment on above: Pattern: Regular 05-25-2012 08:52-0500 Respiratory Rate 16 /min Sirisha Teran [facility] Internal Medicine Work Phone: Comment on above: Pattern: Unlabored 05-25-2012 08:52-0500 Weight 101.61 kg Chasity Verma [facility] Internal Medicine Work Phone: 03-28-2012 10:12-0500 BMI (Body Mass Index) 31.75 kg/m2 Julia Villafana [facility] Internal Medicine Work Phone: 03-28-2012 10:12-0500 Body Temperature 97.1 [degF] Julia Villafana [facility] Internal Medicine Work Phone: Comment on above: Method: Oral 03-28-2012 10:12-0500 Body weight 97.52 kg Julia Villafana [facility] Internal Medicine Work Phone: 03-28-2012 10:12-0500 BP Diastolic 86 mm[Hg] Julia Villafana [facility] Internal Medicine Work Phone: Comment on above: Patient Position: Sitting; Cuff Location : Left Arm; Cuff Size: Standard 03-28-2012 10:12-0500 BP Systolic 124 mm[Hg] Julia Villafana [facility] Internal Medicine Work Phone: Comment on above: Patient Position: Sitting; Cuff Location : Left Arm; Cuff Size: Standard 03-28-2012 10:12-0500 BSA (Body Surface Area) 2.13 m2 Julia Villafana [facility] Internal Medicine Work Phone: 03-28-2012 10:12-0500 Height 175.26 cm Julia Villafana [facility] Internal Medicine Work Phone: 03-28-2012 10:12-0500 Pulse (Heart Rate) 66 /min Julia Villafana [facility] Internal Medicine Work Phone: Comment on above: Pattern: Regular 03-28-2012 10:12-0500 Pulse Oximetry 98 % Chasity Verma [facility] Internal Medicine Work Phone: Comment on above: Room air 03-28-2012 10:12-0500 Respiratory Rate 16 /min Julia Villafana [facility] Internal Medicine Work Phone: Comment on above: Pattern: Unlabored 03-28-2012 10:12-0500 SaO2% (BldA) [Mass fraction] 98 % Julia Broderick [facility]; [facility] Work Phone: 03-28-2012 10:12-0500 Weight 97.52 kg Chasity Verma [facility] Work Phone: 01-19-2012 09:36-0400 BMI (Body Mass Index) 31.75 kg/m2 Ary Cornell RN [facility] Work Phone: 01-19-2012 09:36-0400 Body Temperature 97.8 [degF] Ary Cornell RN [facility] Work Phone: Comment on above: Method: Oral 01-19-2012 09:36-0400 Body weight 97.52 kg Ary Cornell RN [facility] Work Phone: 01-19-2012 09:36-0400 BP Diastolic 68 mm[Hg] Ary Cornell RN [facility] Work Phone: Comment on above: Patient Position: Sitting; Cuff Location : Left Arm; Cuff Size: Standard 01-19-2012 09:36-0400 BP Systolic 120 mm[Hg] Ary Cornell RN [facility] Work Phone: Comment on above: Patient Position: Sitting; Cuff Location : Left Arm; Cuff Size: Standard 01-19-2012 09:36-0400 BSA (Body Surface Area) 2.13 m2 Ary Cornell RN [facility] Work Phone: 01-19-2012 09:36-0400 Height 175.26 cm Ary Cornell RN [facility] Work Phone: 01-19-2012 09:36-0400 Pulse (Heart Rate) 78 /min Ary Cornell RN [facility] Work Phone: Comment on above: Pattern: Regular 01-19-2012 09:36-0400 Respiratory Rate 16 /min Ary Cornell RN [facility] Work Phone: Comment on above: Pattern: Unlabored 01-19-2012 09:36-0400 Weight 97.52 kg Chasity Verma [facility] Work Phone: 10-19-2011 11:43-0400 BMI (Body Mass Index) 31.01 kg/m2 Sarah Thomas RN [facility] Work Phone: 10-19-2011 11:43-0400 Body Temperature 97.9 [degF] Sarah Thomas RN [facility] Work Phone: Comment on above: Method: Oral 10-19-2011 11:43-0400 Body weight 95.26 kg Sarah Thomas RN [facility] Work Phone: 10-19-2011 11:43-0400 BP Diastolic 82 mm[Hg] Sarah Thomas RN [facility] Work Phone: Comment on above: Patient Position: Sitting; Cuff Location : Left Arm; Cuff Size: Large 10-19-2011 11:43-0400 BP Systolic 110 mm[Hg] Sarah Thomas RN [facility] Work Phone: Comment on above: Patient Position: Sitting; Cuff Location : Left Arm; Cuff Size: Large 10-19-2011 11:43-0400 BSA (Body Surface Area) 2.11 m2 Sarah Thomas RN [facility] Work Phone: 10-19-2011 11:43-0400 Height 175.26 cm Sarah Thomas RN [facility] Work Phone: 10-19-2011 11:43-0400 Pulse (Heart Rate) 84 /min Sarah Thomas RN [facility] Work Phone: Comment on above: Pattern: Regular 10-19-2011 11:43-0400 Respiratory Rate 20 /min Sarah Thomas RN [facility] Work Phone: Comment on above: Pattern: Unlabored 10-19-2011 11:43-0400 Weight 95.26 kg Chasity Verma [facility] Work Phone: 04-23-2011 08:11-0500 BMI (Body Mass Index) 31.16 kg/m2 Sirisha Teran [facility] Work Phone: 04-23-2011 08:11-0500 Body Temperature 98.2 [degF] Sirisha Teran [facility] Work Phone: 04-23-2011 08:11-0500 Body weight 95.71 kg Sirisha Teran [facility] Internal Medicine Work Phone: 04-23-2011 08:11-0500 BP Diastolic 98 mm[Hg] Sirisha Jensenemily [facility] Internal Medicine Work Phone: Comment on above: Patient Position: Sitting; Cuff Location : Right Arm; Cuff Size: Large 04-23-2011 08:11-0500 BP Systolic 140 mm[Hg] Sirisha Jensenemily [facility] Internal Medicine Work Phone: Comment on above: Patient Position: Sitting; Cuff Location : Right Arm; Cuff Size: Large 04-23-2011 08:11-0500 BSA (Body Surface Area) 2.11 m2 Sirisha Parul [facility] Internal Medicine Work Phone: 04-23-2011 08:11-0500 Height 175.26 cm Sirisha Parul [facility] Internal Medicine Work Phone: 04-23-2011 08:11-0500 Pulse (Heart Rate) 80 /min [facility] Work [facility]: Comment on above: Pattern: Regular 04-23-2011 08:11-0500 Respiratory Rate 16 /min Sirisha Parul [facility] Internal Medicine Work Phone: Comment on above: Pattern: Unlabored 04-23-2011 08:11-0500 Weight 95.71 kg Chasity Verma [facility] Internal Medicine Work Phone: 12-23-2010 09:47-0400 BMI (Body Mass Index) 27.65 kg/m2 Ary Cornell RN [facility] Work Phone: 12-23-2010 09:47-0400 Body Temperature 97.8 [degF] Ary Cornell RN [facility] Work Phone: Comment on above: Method: Oral 12-23-2010 09:47-0400 Body weight 84.94 kg Ary Cornell RN [facility] Work Phone: 12-23-2010 09:47-0400 BP Diastolic 76 mm[Hg] Ary Cornell RN [facility] Work Phone: Comment on above: Patient Position: Sitting; Cuff Location : Left Arm; Cuff Size: Standard 12-23-2010 09:47-0400 BP Systolic 118 mm[Hg] Ary Cornell RN [facility] Work Phone: Comment on above: Patient Position: Sitting; Cuff Location : Left Arm; Cuff Size: Standard 12-23-2010 09:47-0400 BSA (Body Surface Area) 2.01 m2 Ary Cornell RN [facility] Work Phone: 12-23-2010 09:47-0400 Height 175.26 cm Ary Cornell RN [facility] Work Phone: 12-23-2010 09:47-0400 Pulse (Heart Rate) 72 /min Ary Cornell RN [facility] Work Phone: Comment on above: Pattern: Regular 12-23-2010 09:47-0400 Respiratory Rate 16 /min Ary Cornell RN [facility] Work Phone: Comment on above: Pattern: Unlabored 12-23-2010 09:47-0400 Weight 84.94 kg Chasity Verma [facility] Work Phone: 07-27-2010 08:34-0400 BMI (Body Mass Index) 27.65 kg/m2 Shannon Caicedo LPN [facility] Work Phone: 07-27-2010 08:34-0400 Body Temperature 97.2 [degF] Shannon Caicedo LPN [facility] Work Phone: Comment on above: Method: Oral 07-27-2010 08:34-0400 Body weight 84.94 kg Shannon Caicedo LPN [facility] Work Phone: 07-27-2010 08:34-0400 BP Diastolic 70 mm[Hg] Shannon Caicedo LPN [facility] Work Phone: Comment on above: Patient Position: Sitting; Cuff Location : Left Arm; Cuff Size: Standard 07-27-2010 08:34-0400 BP Systolic 104 mm[Hg] Shannon Caicedo LPN [facility] Work Phone: Comment on above: Patient Position: Sitting; Cuff Location : Left Arm; Cuff Size: Standard 07-27-2010 08:34-0400 BSA (Body Surface Area) 2.01 m2 Shannon Caicedo LPN [facility] Work Phone: 07-27-2010 08:34-0400 Height 175.26 cm Shannon Caicdeo LPN [facility] Work Phone: 07-27-2010 08:34-0400 Pulse (Heart Rate) 82 /min Shannon Caicedo LPN [facility] Work Phone: Comment on above: Pattern: Regular 07-27-2010 08:34-0400 Respiratory Rate 16 /min Shannon Caicedo LPN [facility] Work Phone: Comment on above: Pattern: Unlabored 07-27-2010 08:34-0400 Weight 84.94 kg Chasity Verma [facility] Work Phone: 07-20-2010 13:39-0400 BMI (Body Mass Index) 27.65 kg/m2 Shannon Caicedo LPN [facility] Work Phone: 07-20-2010 13:39-0400 Body Temperature 97 [degF] Shannon Caicedo LPN [facility] Work Phone: Comment on above: Method: Oral 07-20-2010 13:39-0400 Body weight 84.94 kg Shannon Caicedo LPN [facility] Work Phone: 07-20-2010 13:39-0400 BP Diastolic 82 mm[Hg] Shannon Caicedo LPN [facility] Work Phone: Comment on above: Patient Position: Sitting; Cuff Location : Left Arm; Cuff Size: Standard 07-20-2010 13:39-0400 BP Systolic 134 mm[Hg] Shannon Caicedo LPN [facility] Work Phone: Comment on above: Patient Position: Sitting; Cuff Location : Left Arm; Cuff Size: Standard 07-20-2010 13:39-0400 BSA (Body Surface Area) 2.01 m2 Shannon Caicedo FAVIO [facility] Work Phone: 07-20-2010 13:39-0400 Height 175.26 cm Shannon Caicedo FAVIO [facility] Work Phone: 07-20-2010 13:39-0400 Pulse (Heart Rate) 74 /min Shannon Caicedo [employer] [facility] Work Phone: Comment on above: Pattern: Regular 07-20-2010 13:39-0400 Respiratory Rate 16 /min Shannon Caicedo FAVIO [facility] Work Phone: Comment on above: Pattern: Unlabored 07-20-2010 13:39-0400 Weight 84.94 kg Chasity Verma [facility] Work Phone: 06-19-2010 07:56-0500 BMI (Body Mass Index) 28.5 kg/m2 Ary Cornell RN [facility] Work Phone: 06-19-2010 07:56-0500 Body Temperature 96.9 [degF] Ary Cornell RN [facility] Work Phone: Comment on above: Method: Oral 06-19-2010 07:56-0500 Body weight 87.54 kg Ary Cornell RN [facility] Work Phone: 06-19-2010 07:56-0500 BP Diastolic 74 mm[Hg] Ary Cornell RN [facility] Work Phone: Comment on above: Patient Position: Sitting; Cuff Location : Left Arm; Cuff Size: Standard 06-19-2010 07:56-0500 BP Systolic 112 mm[Hg] Ary Cornell RN [facility] Work Phone: Comment on above: Patient Position: Sitting; Cuff Location : Left Arm; Cuff Size: Standard 06-19-2010 07:56-0500 BSA (Body Surface Area) 2.03 m2 Ary Cornell RN [facility] Work Phone: 06-19-2010 07:56-0500 Height 175.26 cm Ary Cornell RN [facility] Work Phone: 06-19-2010 07:56-0500 Pulse (Heart Rate) 72 /min Ary Cornell RN [facility] Work Phone: Comment on above: Pattern: Regular 06-19-2010 07:56-0500 Respiratory Rate 16 /min Ary Cornell RN [facility] Work Phone: Comment on above: Pattern: Unlabored 06-19-2010 07:56-0500 Weight 87.54 kg Chasity Verma [facility] Work Phone: 05-04-2010 13:15-0500 Body Temperature 97.8 [degF] Sirisha Teran [facility] Internal Medicine Work Phone: 05-04-2010 13:15-0500 BP Diastolic 74 mm[Hg] Sirisha Teran [facility] Work Phone: Comment on above: Patient Position: Sitting; Cuff Location : Left Arm; Cuff Size: Large 05-04-2010 13:15-0500 BP Systolic 104 mm[Hg] Sirisha Teran [facility] Internal Medicine Work Phone: Comment on above: Patient Position: Sitting; Cuff Location : Left Arm; Cuff Size: Large 05-04-2010 13:15-0500 Pulse (Heart Rate) 76 /min Sirisha Teran [facility] Work Phone: Comment on above: Pattern: Regular 05-04-2010 13:15-0500 Respiratory Rate 18 /min Sirisha Teran [facility] Internal Medicine Work Phone: Comment on above: Pattern: Unlabored 03-27-2010 09:45-0500 BMI (Body Mass Index) 32.14 kg/m2 FELIPE Forde LPN [facility] Work Phone: 03-27-2010 09:45-0500 Body Temperature 98.2 [degF] FELIPE Forde LPN [facility] Work Phone: Comment on above: Method: Oral 03-27-2010 09:45-0500 Body weight 101.61 kg FELIPE Forde LPN [facility] Work Phone: 03-27-2010 09:45-0500 BP Diastolic 70 mm[Hg] FELIPE Forde LPN [facility] Work Phone: Comment on above: Patient Position: Sitting; Cuff Location : Left Arm; Cuff Size: Standard 03-27-2010 09:45-0500 BP Systolic 104 mm[Hg] FELIPE Forde LPN [facility] Work Phone: Comment on above: Patient Position: Sitting; Cuff Location : Left Arm; Cuff Size: Standard 03-27-2010 09:45-0500 BSA (Body Surface Area) 2.19 m2 FELIPE Forde FAVIO [facility] Internal Medicine Work Phone: 03-27-2010 09:45-0500 Height 177.8 cm FELIPE Forde [employer] [facility] Internal Medicine Work Phone: 03-27-2010 09:45-0500 Pulse (Heart Rate) 64 /min FELIPE Forde LPN [facility] Work Phone: Comment on above: Pattern: Regular 03-27-2010 09:45-0500 Respiratory Rate 18 /min FELIPE Forde LPN [facility] Work Phone: Comment on above: Pattern: Unlabored 03-27-2010 09:45-0500 Weight 101.61 kg Chasity Verma [facility] Internal Medicine Work Phone: 03-25-2010 10:21-0500 Body Temperature 98.1 [degF] Sirisha Teran [facility] Internal Medicine Work Phone: 03-25-2010 10:21-0500 Body weight 102.06 kg Sirisha Teran [facility] Internal Medicine Work Phone: 03-25-2010 10:21-0500 BP Diastolic 80 mm[Hg] Sirisha Teran [facility] Internal Medicine Work Phone: Comment on above: Patient Position: Sitting; Cuff Location : Left Arm; Cuff Size: Large 03-25-2010 10:21-0500 BP Systolic 114 mm[Hg] Sirisha Teran [facility] Internal Medicine Work Phone: Comment on above: Patient Position: Sitting; Cuff Location : Left Arm; Cuff Size: Large 03-25-2010 10:21-0500 Pulse (Heart Rate) 76 /min Sirisha Teran [facility] Work Phone: Comment on above: Pattern: Regular 03-25-2010 10:21-0500 Respiratory Rate 18 /min Sirisha Teran [facility] Internal Medicine Work Phone: Comment on above: Pattern: Unlabored 03-25-2010 10:21-0500 Weight 102.06 kg Chasity Verma [facility] Internal Medicine Work Phone: 01-02-2010 11:56-0400 Body Temperature 98.1 [degF] Sirisha Teran [facility] Internal Medicine Work Phone: 01-02-2010 11:56-0400 Body weight 102.97 kg Sirisha Teran [facility] Internal Medicine Work Phone: 01-02-2010 11:56-0400 BP Diastolic 74 mm[Hg] Sirisha Teran [facility] Internal Medicine Work Phone: Comment on above: Patient Position: Sitting; Cuff Location : Left Arm; Cuff Size: Large 01-02-2010 11:56-0400 BP Systolic 136 mm[Hg] Sirisha Teran [facility] Internal Medicine Work Phone: Comment on above: Patient Position: Sitting; Cuff Location : Left Arm; Cuff Size: Large 01-02-2010 11:56-0400 Pulse (Heart Rate) 86 /min [facility] Work Phone: Comment on above: Pattern: Regular 01-02-2010 11:56-0400 Respiratory Rate 18 /min Sirisha Teran [facility] Internal Medicine Work Phone: Comment on above: Pattern: Unlabored 01-02-2010 11:56-0400 Weight 102.97 kg Chasity Verma [facility] Internal Medicine Work Phone: 11-24-2009 09:03-0400 Body Temperature 98.1 [degF] eSlena Chi [facility] Internal Medicine Work Phone: Comment on above: Method: Oral 11-24-2009 09:03-0400 Body weight 100.05 kg Selena [facility] Internal Medicine Work Phone: 11-24-2009 09:03-0400 BP Diastolic 82 mm[Hg] [facility] Internal Medicine Work Phone: Comment on above: Patient Position: Sitting; Cuff Location : Left Arm; Cuff Size: Standard 11-24-2009 09:03-0400 BP Systolic 112 mm[Hg] [facility] Internal Medicine Work Phone: Comment on above: Patient Position: Sitting; Cuff Location : Left Arm; Cuff Size: Standard 11-24-2009 09:03-0400 Pulse (Heart Rate) 72 /min [facility] Internal Medicine Work Phone: Comment on above: Pattern: Regular 11-24-2009 09:03-0400 Respiratory Rate 18 /min [facility] Internal Medicine Work Phone: Comment on above: Pattern: Unlabored 11-24-2009 09:03-0400 Weight 100.05 kg Chasity Verma [facility] Internal Medicine Work Phone: 06-24-2009 11:55-0400 Body Temperature 97.6 [degF] Sirisha Teran [facility] Internal Medicine Work Phone: 06-24-2009 11:55-0400 BP Diastolic 84 mm[Hg] Sirisha Teran [facility] Internal Medicine Work Phone: Comment on above: Patient Position: Sitting; Cuff Location : Left Arm; Cuff Size: Standard 06-24-2009 11:55-0400 BP Systolic 116 mm[Hg] Sirisha Teran [facility] Internal Medicine Work Phone: Comment on above: Patient Position: Sitting; Cuff Location : Left Arm; Cuff Size: Standard 06-24-2009 11:55-0400 Pulse (Heart Rate) 68 /min Sirisha Teran [facility] Internal Medicine Work Phone: Comment on above: Pattern: Regular 06-24-2009 11:55-0400 Respiratory Rate 18 /min Sirisha Teran [facility] Internal Medicine Work Phone: Comment on above: Pattern: Unlabored 04-07-2009 11:26-0500 Body Temperature 96.7 [degF] Sirisha Teran [facility] Internal Medicine Work Phone: Comment on above: Method: Undefined 04-07-2009 11:26-0500 Body weight 102.06 kg Sirisha Teran [facility] Internal Medicine Work Phone: 04-07-2009 11:26-0500 BP Diastolic 86 mm[Hg] Sirisha Teran [facility] Internal Medicine Work Phone: Comment on above: Patient Position: Sitting; Cuff Location : Left Arm; Cuff Size: Standard 04-07-2009 11:26-0500 BP Systolic 134 mm[Hg] Sirisha Teran [facility] Internal Medicine Work Phone: Comment on above: Patient Position: Sitting; Cuff Location : Left Arm; Cuff Size: Standard 04-07-2009 11:26-0500 Head Circumference 0 cm Chasity Verma [facility] Internal Medicine Work Phone: 04-07-2009 11:26-0500 Head Occipital-frontal circumference 0 cm Sirisha Teran [facility] Internal [facility]; [facility] Work Phone: 04-07-2009 11:26-0500 Height 0 cm Sirisha Teran [facility] Internal Medicine Work Phone: 04-07-2009 11:26-0500 Pulse (Heart Rate) 68 /min Sirisha Teran [facility] Work Phone: Comment on above: Pattern: Regular 04-07-2009 11:26-0500 Respiratory Rate 18 /min Sirisha Teran [facility] Internal Medicine Work Phone: Comment on above: Pattern: Undefined 04-07-2009 11:26-0500 Weight 102.06 kg Chasity Verma [facility] Internal Medicine Work Phone: 02-27-2009 09:23-0500 Body Temperature 96.9 [degF] Shanonn Caicedo LPN [facility] Work Phone: Comment on above: Method: Oral 02-27-2009 09:23-0500 Body weight 102.74 kg Shannon Caicedo LPN [facility] Work Phone: 02-27-2009 09:23-0500 BP Diastolic 72 mm[Hg] Shannon Caicedo LPN [facility] Work Phone: Comment on above: Patient Position: Sitting; Cuff Location : Left Arm; Cuff Size: Standard 02-27-2009 09:23-0500 BP Systolic 118 mm[Hg] Shannon Caicedo FAVIO [facility] Work Phone: Comment on above: Patient Position: Sitting; Cuff Location : Left Arm; Cuff Size: Standard 02-27-2009 09:23-0500 Head Circumference 0 cm Chasity Junebrian [facility] Internal Medicine Work Phone: 02-27-2009 09:23-0500 Head Occipital-frontal circumference 0 cm Shannon Caicedo FAVIO [facility]; [facility] Work Phone: 02-27-2009 09:23-0500 Height 0 cm Shannon Caicedo FAVIO [facility] Work Phone: 02-27-2009 09:23-0500 Pulse (Heart Rate) 74 /min Shannon Caicedo LPN [facility] Work Phone: Comment on above: Pattern: Regular 02-27-2009 09:23-0500 Respiratory Rate 19 /min Shannon Caicedo LPN [facility] Work Phone: Comment on above: Pattern: Unlabored 02-27-2009 09:23-0500 Weight 102.74 kg Chasity Verma [facility] Internal Medicine Work Phone: 01-27-2009 11:26-0400 Body Temperature 98.2 [degF] Sirisha Teran [facility] Internal Medicine Work Phone: Comment on above: Method: Undefined 01-27-2009 11:26-0400 Body weight 0 kg Sirisha Teran [facility] Internal Medicine Work Phone: 01-27-2009 11:26-0400 BP Diastolic 74 mm[Hg] Sirisha Teran [facility] Internal Medicine Work Phone: Comment on above: Patient Position: Sitting; Cuff Location : Left Arm; Cuff Size: Large 01-27-2009 11:26-0400 BP Systolic 106 mm[Hg] Sirisha Teran [facility] Internal Medicine Work Phone: Comment on above: Patient Position: Sitting; Cuff Location : Left Arm; Cuff Size: Large 01-27-2009 11:26-0400 Head Circumference 0 cm Chasity Verma [facility] Internal Medicine Work Phone: 01-27-2009 11:26-0400 Head Occipital-frontal circumference 0 cm Sirisha Teran [facility]; [facility] Work Phone: 01-27-2009 11:26-0400 Height 0 cm Sirisha Jensenemily [facility] Medicine Work Phone: 01-27-2009 11:26-0400 Pulse (Heart Rate) 76 /min Sirisha Flemily [facility] Work Phone: Comment on above: Pattern: Regular 01-27-2009 11:26-0400 Respiratory Rate 18 /min Sirisha Jensenemily [facility] Medicine Work Phone: Comment on above: Pattern: Undefined 01-27-2009 11:26-0400 Weight 0 kg Chasity Verma [facility] Internal Medicine Work Phone: 01-17-2009 10:13-0400 BMI (Body Mass Index) 30.99 kg/m2 Arianna Wilson RN [facility] Work Phone: 01-17-2009 10:13-0400 Body Temperature 99.9 [degF] Arianna Wilson RN [facility] Work Phone: Comment on above: Method: Oral 01-17-2009 10:13-0400 Body weight 97.98 kg Arianna Wilson RN [facility] Work Phone: 01-17-2009 10:13-0400 BP Diastolic 78 mm[Hg] Arianna Wilson RN [facility] Work Phone: Comment on above: Patient Position: Sitting; Cuff Location : Left Arm; Cuff Size: Large 01-17-2009 10:13-0400 BP Systolic 110 mm[Hg] Arianna Wilson RN [facility] Work Phone: Comment on above: Patient Position: Sitting; Cuff Location : Left Arm; Cuff Size: Large 01-17-2009 10:13-0400 BSA (Body Surface Area) 2.16 m2 Arianna Wilson RN [facility] Work Phone: 01-17-2009 10:13-0400 Head Circumference 0 cm Chasity Verma [facility] Medicine Work Phone: 01-17-2009 10:13-0400 Head Occipital-frontal circumference 0 cm Arianna Wilson RN [facility]; [facility] Work Phone: 01-17-2009 10:13-0400 Height 177.8 cm Arianna Wilson RN [facility] Work Phone: 01-17-2009 10:13-0400 Pulse (Heart Rate) 80 /min Arianna Wilson RN [facility] Work Phone: Comment on above: Pattern: Regular 01-17-2009 10:13-0400 Respiratory Rate 20 /min Arianna Wilson RN [facility] Work Phone: Comment on above: Pattern: Unlabored 01-17-2009 10:13-0400 Weight 97.98 kg Chasity Verma [facility] Internal Medicine Work Phone: 09-26-2008 09:09-0400 Body Temperature 97.3 [degF] Sirisha Teran [facility] Internal Medicine Work Phone: Comment on above: Method: Undefined 09-26-2008 09:09-0400 Body weight 97.98 kg Sirisha Teran [facility] Internal Medicine Work Phone: 09-26-2008 09:09-0400 BP Diastolic 78 mm[Hg] Sirisha Teran [facility] Internal Medicine Work Phone: Comment on above: Patient Position: Sitting; Cuff Location : Left Arm; Cuff Size: Large 09-26-2008 09:09-0400 BP Systolic 106 mm[Hg] Sirisha Teran [facility] Internal Medicine Work Phone: Comment on above: Patient Position: Sitting; Cuff Location : Left Arm; Cuff Size: Large 09-26-2008 09:09-0400 Head [facility]umference 0 [facility] Work [facility]: 09-26-2008 09:09-0400 Head Occipital-frontal circumference 0 cm Sirisha Parul [facility]; [facility] Work Phone: 09-26-2008 09:090400 Height 0 cm Sirisha Parul [facility] Internal Medicine Work Phone: 09-26-2008 09:09-0400 Pulse (Heart Rate) 64 /min Sirisha Parul [facility] Internal Medicine Work Phone: Comment on above: Pattern: Regular 09-26-2008 09:09-0400 Respiratory Rate 18 /min Sirisha Jensenemily [facility] Internal Medicine Work Phone: Comment on above: Pattern: Undefined 09-26-2008 09:09-0400 Weight 97.98 [facility] Work Phone: 05-31-2008 13:17-0500 BMI (Body Mass Index) 31.77 kg/m2 Ligia [facility] Internal Medicine Work Phone: 05-31-2008 13:17-0500 Body weight 100.44 kg Ligia [facility] Medicine Work Phone: 05-31-2008 13:17-0500 BP Diastolic 72 mm[Hg] [facility] Internal Medicine Work Phone: Comment on above: Patient Position: Sitting; Cuff Location : Left Arm; Cuff Size: Standard 05-31-2008 13:17-0500 BP Systolic 120 mm[Hg] [facility] Internal Medicine Work Phone: Comment on above: Patient Position: Sitting; Cuff Location : Left Arm; Cuff Size: Standard 05-31-2008 13:17-0500 BSA (Body Surface Area) 2.18 m2 Ligia [facility] Internal Medicine Work Phone: 05-31-2008 13:17-0500 Head Circumference 0 cm [facility] Work Phone: 05-31-2008 13:17-0500 Head Occipital-frontal circumference 0 cm Ligia Moffett [facility]; [facility] Work Phone: 05-31-2008 13:17-0500 Height 177.8 cm Ligia Moffett [facility] Internal Medicine Work Phone: 05-31-2008 13:17-0500 Pulse (Heart Rate) 72 /min Ligia Moffett [facility] Internal Medicine Work Phone: Comment on above: Pattern: Regular 05-31-2008 13:17-0500 Respiratory Rate 16 /min Ligia Moffett [facility] Internal Medicine Work Phone: Comment on above: Pattern: Unlabored 05-31-2008 13:17-0500 Weight 100.44 kg Chasity Verma [facility] Internal Medicine Work Phone: 03-20-2008 08:59-0500 Body Temperature 97.1 [degF] Sirisha Teran [facility] Internal Medicine Work Phone: Comment on above: Method: Undefined 03-20-2008 08:59-0500 Body weight 0 kg Sirisha Teran [facility] Internal Medicine Work Phone: 03-20-2008 08:59-0500 BP Diastolic 74 mm[Hg] Sirisha Teran [facility] Internal Medicine Work Phone: Comment on above: Patient Position: Sitting; Cuff Location : Right Arm; Cuff Size: Standard 03-20-2008 08:59-0500 BP Systolic 108 mm[Hg] Sirishakevin Coronadogarcía [facility] Internal Medicine Work Phone: Comment on above: Patient Position: Sitting; Cuff Location : Right Arm; Cuff Size: Standard 03-20-2008 08:59-0500 Head Circumference 0 cm Chasity Verma [facility] [facility] Work Phone: 03-20-2008 08:59-0500 Head Occipital-frontal circumference 0 cm Sirisha Flemily [facility] Internal Medicine; [facility] Internal Medicine Work Phone: 03-20-2008 08:59-0500 Height 0 cm Sirisha Jensenemily [facility] Internal Medicine Work Phone: 03-20-2008 08:59-0500 Pulse (Heart Rate) 60 /min Sirisha Teran [facility] Internal Medicine Work Phone: Comment on above: Pattern: Regular 03-20-2008 08:59-0500 Respiratory Rate 18 /min Sirisha Teran [facility] Internal Medicine Work Phone: Comment on above: Pattern: Undefined 03-20-2008 08:59-0500 Weight 0 kg Chasity Verma [facility] Internal Medicine Work Phone: 10-10-2007 09:46-0400 Body Temperature 99.1 [degF] Sirisha Teran [facility] Internal Medicine Work Phone: Comment on above: Method: Undefined 10-10-2007 09:46-0400 Body weight 0 kg Sirisha Teran [facility] Internal Medicine Work Phone: 10-10-2007 09:46-0400 BP Diastolic 72 mm[Hg] Sirisha Teran [facility] Internal Medicine Work Phone: Comment on above: Patient Position: Sitting; Cuff Location : Left Arm; Cuff Size: Standard 10-10-2007 09:46-0400 BP Systolic 108 mm[Hg] Sirisha Teran [facility] Internal Medicine Work Phone: Comment on above: Patient Position: Sitting; Cuff Location : Left Arm; Cuff Size: Standard 10-10-2007 09:46-0400 Head Circumference 0 cm Chasity Verma [facility] Internal Medicine Work Phone: 10-10-2007 09:46-0400 Head Occipital-frontal circumference 0 cm Sirisha Jensenemily [facility] Internal Medicine; [facility] Work Phone: 10-10-2007 09:46-0400 Height 0 cm Sirisha Teran [facility] Internal Medicine Work Phone: 10-10-2007 09:46-0400 Pulse (Heart Rate) 68 /min Sirisha Teran Comprehensiv e Internal Medicine Work Phone: Comment on above: Pattern: Regular 10-10-2007 09:46-0400 Respiratory Rate 16 /min Sirisha Jensenemily [facility] Internal Medicine Work Phone: Comment on above: Pattern: Undefined 10-10-2007 09:46-0400 Weight 0 kg Chasity Verma [facility] Internal Medicine Work Phone: 07-04-2007 08:40-0400 Body Temperature 98.7 [degF] Sirisha Jensenemily [facility] Internal Medicine Work Phone: Comment on above: Method: Undefined 07-04-2007 08:40-0400 Body weight 97.98 kg Sirisha Teran [facility] Internal Medicine Work Phone: 07-04-2007 08:40-0400 BP Diastolic 86 mm[Hg] Sirisha Jensenmilliegarcía [facility] Internal Medicine Work Phone: Comment on above: Patient Position: Sitting; Cuff Location : Left Arm; Cuff Size: Standard 07-04-2007 08:40-0400 BP Systolic 130 mm[Hg] Sirisha Parul [facility] Internal Medicine Work Phone: Comment on above: Patient Position: Sitting; Cuff Location : Left Arm; Cuff Size: Standard 07-04-2007 08:40-0400 Head Circumference 0 cm Chasity Verma [facility] Internal Medicine Work Phone: 07-04-2007 08:40-0400 Head Occipital-frontal circumference 0 cm Sirisha Parul [facility] Internal Medicine; [facility] Work Phone: 07-04-2007 08:40-0400 Height 0 cm Sirisha Parul [facility] Internal Medicine Work Phone: 07-04-2007 08:40-0400 Pulse (Heart Rate) 60 /min Sirisha Jensenemily Comprehens e Internal Medicine Work Phone: Comment on above: Pattern: Regular 07-04-2007 08:40-0400 Respiratory Rate 16 /min Sirisha Parul [facility] Internal Medicine Work Phone: Comment on above: Pattern: Undefined 07-04-2007 08:40-0400 Weight 97.98 kg Chasity Verma [facility] Internal Medicine Work Phone: 03-24-2007 10:06-0500 Body Temperature 99.4 [degF] Sirisha Teran [facility] Internal Medicine Work Phone: Comment on above: Method: Oral 03-24-2007 10:06-0500 Body weight 88.45 kg Sirisha Teran [facility] Internal Medicine Work Phone: 03-24-2007 10:06-0500 BP Diastolic 86 mm[Hg] Sirisha Teran [facility] Internal Medicine Work Phone: Comment on above: Patient Position: Sitting; Cuff Location : Left Arm; Cuff Size: Standard 03-24-2007 10:06-0500 BP Systolic 102 mm[Hg] Sirisha Teran [facility] Internal Medicine Work Phone: Comment on above: Patient Position: Sitting; Cuff Location : Left Arm; Cuff Size: Standard 03-24-2007 10:06-0500 Head Circumference 0 cm Chasity Verma [facility] Internal Medicine Work Phone: 03-24-2007 10:06-0500 Head Occipital-frontal circumference 0 cm Sirisha Teran [facility] Internal Medicine; [facility] Work Phone: 03-24-2007 10:06-0500 Height 0 cm Sirisha Teran [facility] Internal Medicine Work Phone: 03-24-2007 10:06-0500 Pulse (Heart Rate) 88 /min Sirisha Teran [facility] Internal Medicine Work Phone: Comment on above: Pattern: Regular 03-24-2007 10:06-0500 Respiratory Rate 16 /min Sirisha Teran [facility] Internal Medicine Work Phone: Comment on above: Pattern: Unlabored 03-24-2007 10:06-0500 Weight 88.45 kg Chasity Verma [facility] Internal Medicine Work Phone: 11-28-2006 09:49-0400 BMI (Body Mass Index) 30.94 kg/m2 Sirisha Teran [facility] Internal Medicine Work Phone: 11-28-2006 09:49-0400 Body Temperature 98.2 [degF] Sirisha Teran [facility] Internal Medicine Work Phone: Comment on above: Method: Oral 11-28-2006 09:49-0400 Body weight 92.99 kg Sirisha Teran [facility] Internal Medicine Work Phone: 11-28-2006 09:49-0400 BP Diastolic 82 mm[Hg] Sirisha Teran [facility] Internal Medicine Work Phone: Comment on above: Patient Position: Sitting; Cuff Location : Left Arm; Cuff Size: Standard 11-28-2006 09:49-0400 BP Systolic 120 mm[Hg] Sirisha Teran [facility] Internal Medicine Work Phone: Comment on above: Patient Position: Sitting; Cuff Location : Left Arm; Cuff Size: Standard 11-28-2006 09:49-0400 BSA (Body Surface Area) 2.07 m2 Sirisha Teran [facility] Internal Medicine Work Phone: 11-28-2006 09:49-0400 Head Circumference 0 cm Chasity Verma [facility] Internal Medicine Work Phone: 11-28-2006 09:49-0400 Head Occipital-frontal circumference 0 cm Sirisha Teran [facility] Internal Medicine; [facility] Internal Medicine Work Phone: 11-28-2006 09:49-0400 Height 173.35 cm Sirisha Teran [facility] Internal Medicine Work Phone: 11-28-2006 09:49-0400 Pulse (Heart Rate) 72 /min Sirisha Teran Comprehensiv Internal Medicine Work Phone: Comment on above: Pattern: Regular 11-28-2006 09:49-0400 Respiratory Rate 16 /min Sirisha Teran [facility] Internal Medicine Work Phone: Comment on above: Pattern: Unlabored 11-28-2006 09:49-0400 Weight 92.99 kg Chasity Verma [facility] Internal Medicine Work Phone: 05-30-2006 14:01-0500 BMI (Body Mass Index) 32.64 kg/m2 Sirisha Teran [facility] Internal Medicine Work Phone: 05-30-2006 14:01-0500 Body Temperature 98.4 [degF] Sirisha Teran [facility] Internal Medicine Work Phone: Comment on above: Method: Oral 05-30-2006 14:01-0500 Body weight 98.09 kg Sirisha Teran [facility] Internal Medicine Work Phone: 05-30-2006 14:01-0500 BP Diastolic 82 mm[Hg] Sirisha Teran [facility] Internal Medicine Work Phone: Comment on above: Patient Position: Sitting; Cuff Location : Left Arm; Cuff Size: Standard 05-30-2006 14:01-0500 BP Systolic 118 mm[Hg] Sirisha Teran [facility] Internal Medicine Work Phone: Comment on above: Patient Position: Sitting; Cuff Location : Left Arm; Cuff Size: Standard 05-30-2006 14:01-0500 BSA (Body Surface Area) 2.12 m2 Sirisha Teran [facility] Internal Medicine Work Phone: 05-30-2006 14:01-0500 Head Circumference 0 cm Chasity Verma [facility] Internal Medicine Work Phone: 05-30-2006 14:01-0500 Head Occipital-frontal circumference 0 cm Sirisha Teran [facility] Internal Medicine; [facility] Work Phone: 05-30-2006 14:01-0500 Height 173.35 cm Sirisha Teran [facility] Internal Medicine Work Phone: 05-30-2006 14:01-0500 Pulse (Heart Rate) 76 /min Sirisha Teran [facility] Internal Medicine Work Phone: Comment on above: Pattern: Regular 05-30-2006 14:01-0500 Respiratory Rate 16 /min Sirisha Teran [facility] Internal Medicine Work Phone: Comment on above: Pattern: Unlabored 05-30-2006 14:01-0500 Weight 98.09 kg Chasity Verma [facility] Internal Medicine Work Phone: 02-25-2006 12:54-0500 Body Temperature 98.1 [degF] Miriam Salvador [facility] Internal Medicine Work Phone: Comment on above: Method: Oral 02-25-2006 12:54-0500 Body weight 92.99 kg Miriam Salvador [facility] Internal Medicine Work Phone: 02-25-2006 12:54-0500 BP Diastolic 82 mm[Hg] [facility] Work [facility]: Comment on above: Patient Position: Sitting; Cuff Location : Undefined; Cuff Size: Undefined 02-25-2006 12:54-0500 BP Systolic 112 mm[Hg] [facility] Work Phone: Comment on above: Patient Position: Sitting; Cuff Location : Undefined; Cuff Size: Undefined 02-25-2006 12:54-0500 Head Circumference 0 cm Chasity Junebrian [facility] Internal Medicine Work Phone: 02-25-2006 12:54-0500 Head Occipital-frontal circumference 0 cm Miriam Salvador [facility] Work Phone: 02-25-2006 12:54-0500 Height 0 cm [facility] Work Phone: 02-25-2006 12:54-0500 Respiratory Rate 16 /min [facility] Work Phone: Comment on above: Pattern: Undefined 02-25-2006 12:54-0500 Weight 92.99 kg Chasity Verma [facility] Work Phone: 01-10-2006 11:13-0400 BMI (Body Mass Index) 31.47 kg/m2 Sirisha Teran [facility] Internal Medicine Work Phone: 01-10-2006 11:13-0400 Body Temperature 98.9 [degF] Sirisha Teran [facility] Internal Medicine Work Phone: Comment on above: Method: Oral 01-10-2006 11:130400 Body weight 93.9 kg Sirisha Teran [facility] Internal Medicine Work Phone: 01-10-2006 11:13-0400 BP Diastolic 88 mm[Hg] Sirisha Teran [facility] Internal Medicine Work Phone: Comment on above: Patient Position: Sitting; Cuff Location : Right Arm; Cuff Size: Standard 01-10-2006 11:13-0400 BP Systolic 128 mm[Hg] Sirisha Teran [facility] Internal Medicine Work Phone: Comment on above: Patient Position: Sitting; Cuff Location : Right Arm; Cuff Size: Standard 01-10-2006 11:13-0400 BSA (Body Surface Area) 2.07 m2 Sirisha Teran [facility] Internal Medicine Work Phone: 01-10-2006 11:13-0400 Head Circumference 0 cm Chasity Verma [facility] Internal Medicine Work Phone: 01-10-2006 11:13-0400 Head Occipital-frontal circumference 0 cm Sirisha Teran [facility] Internal Medicine; [facility] Internal Medicine Work Phone: 01-10-2006 11:13-0400 Height 172.72 cm Sirisha Teran [facility] Internal Medicine Work Phone: 01-10-2006 11:13-0400 Pulse (Heart Rate) 64 /min Sirisha Teran Comprehensiv e Internal Medicine Work Phone: Comment on above: Pattern: Regular 01-10-2006 11:13-0400 Respiratory Rate 16 /min Sirisha Teran [facility] Internal Medicine Work Phone: Comment on above: Pattern: Unlabored 01-10-2006 11:13-0400 Weight 93.9 kg Chasity Verma [facility] Internal Medicine Work Phone: Encounters Encounter Date Encounter Type Care Provider Facility Start: 06-28-2024 End: 06-28-2024 ambulatory No Primary Care Physician Facility:[facility] Start: 06-11-2024 End: 06-11-2024 ambulatory Zena CANNON Work Phone: [facility] Work Phone: Start: 06-11-2024 End: 06-11-2024 Patient encounter procedure Zena CANNON -[facility] Work Phone: Start: 06-11-2024 End: 06-11-2024 ambulatory Zena Padron Facility:[facility] Start: 06-04-2024 Emergency department patient visit JORDYNBrian BELTRAN Facility:[facility] Start: 05-08-2024 End: 05-08-2024 Patient encounter procedure Zena CANNON -[facility] Work Phone: Start: 05-08-2024 End: 05-08-2024 ambulatory Zena Padron Facility:[facility] Start: 04-30-2024 End: 04-30-2024 Emergency department patient visit NITIN NUÑEZ Facility:[facility] Start: 04-23-2024 End: 04-23-2024 ambulatory ROBSON BECK Facility:[facility] Start: 04-23-2024 End: 04-23-2024 Patient encounter procedure Robson Beck MD Work Phone: Cardiology Comment on above: Coronary artery dise ase involving [place] coronary artery of [place] heart without angina pectoris (Primary Dx); Essential hypertension; Pure hypercholesterolemia; Tobacco use disorder Start: 02-22-2024 End: 02-22-2024 ambulatory Jordyn Beltran VIDEO PRODUCTION ASSISTANT Facility:[facility] Start: 12-14-2023 End: 12-14-2023 Telephone encounter Robson Beck MD Work Phone: Cardiology Comment on above: Record request for t axes Start: 03-14-2023 End: 03-14-2023 Patient encounter procedure Robson Beck MD Work Phone: Cardiology Comment on above: Coronary artery dise ase involving [place] coronary artery of [place] heart without angina pectoris (Primary Dx); Essential hypertension; Pure hypercholesterolemia; Tobacco use disorder Start: 02-15-2023 End: 02-16-2023 ambulatory BILLY BARROS [facility] Start: 02-15-2023 End: 02-15-2023 Subsequent hospital visit by physician Billy Barros BARREL TESTER AND DRAINER - AIRCRAFT AVIONICS TECHNICIAN Work Phone: [facility] Comment on above: Strain of tendon of left rotator cuff, initial encounter Start: 02-10-2023 Orders Only Billy murphy BARREL TESTER AND DRAINER - AIRCRAFT AVIONICS TECHNICIAN Work Phone: Occupational Health Comment on above: Strain of tendon of left rotator cuff, initial encounter (Primary Dx) Start: 02-07-2023 Orders Only iBlly Braun jeffrey BARREL TESTER AND DRAINER - AIRCRAFT AVIONICS TECHNICIAN Work Phone: Occupational Health Comment on above: Referral Start: 02-01-2023 End: 02-02-2023 Emergency department patient visit ANIA MOTTA [facility] Start: 02-01-2023 End: 02-01-2023 Subsequent hospital visit by physician [facility] [employer] [facility] Radiology Comment on above: Arrived Start: 02-01-2023 End: 02-01-2023 Emergency department patient visit Ania Motta DO Work Phone: [facility] ED Comment on above: Acute pain of left s houlder (Primary Dx) Start: 12-22-2022 End: 12-22-2022 ambulatory [facility] Work Phone: Start: 12-22-2022 End: 12-22-2022 Patient encounter procedure [facility] Spec[facility] Work Phone: Start: 11-22-2022 Refill Robson bennett MD Work Phone: [facility] Cardiology [place] Comment on above: Refill Request Start: 03-18-2022 Refill Robson bennett MD Work Phone: [facility] General Cardiology Comment on above: Refill Request Start: 01-21-2022 End: 01-21-2022 Patient encounter procedure Robson Beck MD Work Phone: [facility] Cardiology [place] Comment on above: Coronary artery dise ase involving [place] coronary artery of [place] heart without angina pectoris (Primary Dx); Essential hypertension; Pure hypercholesterolemia; Tobacco use disorder Start: 01-18-2022 Telephone encounter Barb Ramey BARREL TESTER AND DRAINER.AIRCRAFT AVIONICS TECHNICIAN Work Phone: [facility] Cardiology [place] Comment on above: Results Start: 11-27-2021 End: 11-27-2021 Patient encounter procedure Card Pulm Rehab Phase 2 Work Phone: [facility] Cardio-Pulm Rehab Comment on above: S/P CABG (coronary a rtery bypass graft) (Primary Dx) Start: 11-26-2021 End: 11-26-2021 ambulatory Carlos Sindel DO Work Phone: [facility] Comment on above: Coronary artery dise ase involving [place] coronary artery of [place] heart without angina pectoris (Primary Dx); Thrombophilia (HCC) Start: 11-26-2021 End: 11-26-2021 Telemedicine consultation with patient Carlos Espinoza DO Work Phone: [facility] Start: 11-25-2021 Refill Man mittal MD Work Phone: [facility] Cardiology [place] Comment on above: Refill Request Start: 11-23-2021 End: 11-23-2021 Patient encounter procedure Card Pulm Rehab Phase 2 Work Phone: [facility] Comment on above: S/P CABG (coronary a rtery bypass graft) (Primary Dx) Start: 11-20-2021 End: 11-20-2021 Patient encounter procedure Card Pulm Rehab Phase 2 Work Phone: [facility] Comment on above: S/P CABG (coronary a rtery bypass graft) (Primary Dx) Start: 11-18-2021 End: 11-18-2021 Patient encounter procedure Card Pulm Rehab Phase 2 Work Phone: [facility] Comment on above: S/P CABG (coronary a rtery bypass graft) (Primary Dx) Start: 11-16-2021 End: 11-16-2021 Patient encounter procedure Card Pulm Rehab Phase 2 Work Phone: [facility] Comment on above: S/P CABG (coronary a rtery bypass graft) (Primary Dx) Start: 11-11-2021 Telephone encounter Daksha perry MD Work Phone: [facility] Hematology/Oncology Comment on above: Appointment Start: 11-11-2021 End: 11-11-2021 Patient encounter procedure Card Pulm Rehab Phase 2 Work Phone: [facility] Comment on above: S/P CABG (coronary a rtery bypass graft) Start: 11-09-2021 End: 11-09-2021 Patient encounter procedure Card Pulm Rehab Phase 2 Work Phone: [facility] Cardio-Pulm Rehab Comment on above: S/P CABG (coronary a rtery bypass graft) Start: 11-04-2021 Telephone encounter Samira Chang APRN.CNP Work Phone: [facility] Cardiology [place] Comment on above: Results Start: 11-03-2021 Telephone encounter Daksha perry MD Work Phone: [facility] Hematology/Oncology Comment on above: Appointment Start: 11-02-2021 Telephone encounter Samira Chang APRN.CNP Work Phone: [facility] Comment on above: Results Start: 10-30-2021 End: 10-30-2021 Patient encounter procedure Card Pulm Rehab Phase 2 Work Phone: [facility] Cardio-Pulm Rehab Comment on above: S/P CABG (coronary a rtery bypass graft) Start: 10-28-2021 End: 10-28-2021 Patient encounter procedure Card Pulm Rehab Phase 2 Work Phone: [facility] Cardio-Pul Rehab Comment on above: S/P CABG (coronary a rtery bypass graft) Start: 10-23-2021 ambulatory Samira mendoza APRN.CNP Work Phone: [facility] Cardiology [place] Comment on above: Activity restriction s Start: 10-23-2021 E-mail encounter fro m caregiver Samira Chang APRN.CNP Work Phone: [facility] Start: 10-23-2021 End: 10-23-2021 Patient encounter procedure Card Pulm Rehab Phase 2 Work Phone: [facility] Cardio-Pul Rehab Comment on above: S/P CABG (coronary a rtery bypass graft) Start: 10-21-2021 End: 10-21-2021 Patient encounter procedure Card Pulm Rehab Phase 2 Work Phone: [facility] Cardio-Pulm Rehab Comment on above: S/P CABG (coronary a rtery bypass graft) Coronary artery dise ase involving [place] coronary artery of [place] heart without angina pectoris (Primary Dx); Essential hypertension; Mixed hyperlipidemia; S/P CABG x 1; Class 2 severe obesity due to excess calories with serious comorbidity and body mass index (BMI) of 37.0 to 37.9 in adult ([facility]); Tobacco use disorder Start: 10-19-2021 End: 10-19-2021 Patient encounter procedure Card Pul Rehab Phase 2 Work Phone: [facility] Re[facility] Comment on above: S/P CABG (coronary a rtery bypass graft) Start: 10-16-2021 End: 10-16-2021 Patient encounter procedure Card Pul Rehab Phase 2 Work Phone: [facility] Re[facility] Comment on above: S/P CABG (coronary a rtery bypass graft) Start: 10-13-2021 End: 10-13-2021 Patient encounter procedure Ada Jimenez APRN.AIRCRAFT AVIONICS TECHNICIAN Work Phone: [facility] Comment on above: S/P CABG x 1 (Primar y Dx); NSTEMI (non-ST elevated myocardial infarction) ([facility]); Coronary artery disease involving [place] coronary artery of [place] heart without angina pectoris; Essential hypertension Start: 10-13-2021 End: 10-13-2021 Subsequent hospital visit by physician [facility] [place] [facility] Comment on above: S/P CABG x 1 [Z95.1] Start: 10-09-2021 End: 10-09-2021 Patient encounter procedure Card Pul Rehab Phase 2 Work Phone: [facility] Comment on above: S/P CABG (coronary a rtery bypass graft) Start: 10-07-2021 End: 10-07-2021 Patient encounter procedure Card Pul Rehab Phase 2 Work Phone: [facility] Comment on above: S/P CABG (coronary a rtery bypass graft) Start: 10-06-2021 End: 10-06-2021 Patient encounter procedure Watch Repairer Work Phone: [facility] Cardio-Pulm Rehab Comment on above: S/P CABG (coronary a rtery bypass graft) Start: 09-30-2021 End: 09-30-2021 Home visit Salome Lewis RN Work Phone: [facility] Comment on above: SN AGENCY DC W VISIT Start: 09-30-2021 Telephone encounter Salome armendariz RN Work Phone: [facility] Comment on above: Home Care Start: 09-24-2021 End: 09-24-2021 ambulatory Daksha Montiel MD Work Phone: [facility] Comment on above: Coronary artery dise ase involving [place] coronary artery of [place] heart without angina pectoris (Primary Dx); Thrombophilia (HCC) Start: 09-24-2021 End: 09-24-2021 Telemedicine consultation with patient Daksha Montiel MD Work Phone: [facility] Start: 09-23-2021 End: 09-23-2021 Home visit Salome Lewis RN Work Phone: [facility] Comment on above: SN ROUTINE Start: 09-17-2021 End: 09-17-2021 Patient encounter procedure Chriss Handley MD Work Phone: [facility] Comment on above: Postoperative visit (Primary Dx) Start: 09-16-2021 End: 09-16-2021 Home visit Salome Lewis RN Work Phone: [facility] Comment on above: SN ROUTINE Start: 09-14-2021 Refill Man mittal MD Work Phone: [facility] [place] Comment on above: Refill Request Start: 09-14-2021 End: 09-14-2021 Patient encounter procedure Aad Jimenez APRN.AIRCRAFT AVIONICS TECHNICIAN Work Phone: [facility] Comment on above: S/P CABG x 1 (Primar y Dx); NSTEMI (non-ST elevated myocardial infarction) (HCC); Coronary artery disease involving [place] coronary artery of [place] heart without angina pectoris; Essential hypertension Start: 09-09-2021 Telephone encounter Jordyn Barker Mo mims BARREL TESTER AND DRAINER.AIRCRAFT AVIONICS TECHNICIAN Work Phone: NOC Comment on above: Follow Up Phone Call (all clear) Start: 09-07-2021 Telephone encounter Rayray Tiffani Romeo [facility] Comment on above: Home Care (Confirmat ion Call) Start: 08-28-2021 Telephone encounter Rosa hidalgo UM RN Work Phone: [facility] Comment on above: Home Care (Confirmat ion Call) Start: 08-27-2021 Refill Man mittal MD Work Phone: [facility] [place] Comment on above: Refill Request Start: 08-25-2021 Telephone encounter Man Mayer MD Work Phone: [facility] [place] Comment on above: Results Start: 07-16-2021 End: 07-16-2021 Patient encounter procedure Man Mayer MD Work Phone: [facility] [place] Comment on above: Coronary artery dise ase involving [place] coronary artery of [place] heart without angina pectoris (Primary Dx); Essential hypertension; Class 2 severe obesity due to excess calories with serious comorbidity and body mass index (BMI) of 37.0 to 37.9 in adult (HCC) Start: 08-09-2019 End: 08-09-2019 Office outpatient visit 40 minutes [facility] Start: 08-07-2019 End: 08-07-2019 Office outpatient visit 25 minutes Chasity [facility] Start: 06-18-2019 End: 06-18-2019 Office outpatient visit 15 minutes Chasity Rec[facility] Start: 05-18-2019 End: 05-18-2019 Office outpatient visit 15 minutes Ch[facility]ity [facility] Start: 05-15-2019 End: 05-15-2019 Office outpatient visit 15 minutes Ch[facility]ity [facility] Start: 08-04-2018 End: 08-04-2018 Annotation/Addendum Chasity Recinos [facility] Associate [facility] Start: 08-04-2018 End: 08-04-2018 Chasity Verma CNP Work Phone: [facility] Start: 08-04-2018 Patient encounter procedure [facility]asity Ciesa [facility] Start: 08-04-2018 End: 08-04-2018 Office outpatient visit 25 minutes Chasity Shayleedonaldbrian [facility] Start: 07-10-2018 End: 07-10-2018 Annotation/Addendum Chasity Junedonaldbrian [facility] Start: 07-10-2018 End: 07-10-2018 Chasity Verma AIRCRAFT AVIONICS TECHNICIAN Work Phone: [facility] Start: 07-10-2018 End: 07-10-2018 Office outpatient visit 15 minutes Chasity Junedonaldbrian [facility] Start: 04-25-2018 End: 04-25-2018 Office outpatient visit 15 minutes Chasity Junedonaldbrian [facility] Start: 04-10-2018 End: 04-10-2018 Office outpatient visit 15 minutes Chasity Junedonaldbrian [facility] Start: 01-06-2018 End: 01-06-2018 Phone Encounter Chasity Yepezbrian [facility] Start: 01-06-2018 End: 01-06-2018 Chasity Yepezbrian AIRCRAFT AVIONICS TECHNICIAN Work Phone: [facility] Start: 01-02-2018 End: 01-02-2018 Office outpatient visit 15 minutes Chasity Yepezbrian [facility] Start: 11-23-2017 End: 11-23-2017 Office outpatient visit 15 minutes Chasity Junedonaldbrian [facility] Start: 09-06-2017 End: 09-06-2017 Office outpatient visit 25 minutes Chasity Junedonaldbrian [facility] Start: 08-08-2017 End: 08-08-2017 Patient encounter procedure Chasity Yepezbrian [facility] Start: 08-08-2017 End: 08-08-2017 Chasity Verma AIRCRAFT AVIONICS TECHNICIAN Work Phone: [facility] Start: 07-08-2017 End: 07-08-2017 Annotation/Addendum Chasity Yepezbrian [facility] Start: 07-08-2017 End: 07-08-2017 Chasity Shayleedonaldbrian AIRCRAFT AVIONICS TECHNICIAN Work Phone: [facility] Start: 06-07-2017 End: 06-07-2017 Office outpatient visit 25 minutes Chasity Junedonaldbrian [facility] Start: 03-18-2017 End: 03-18-2017 Lab Order Chasity Verma [facility] Start: 03-18-2017 End: 03-18-2017 Chasity Junedonaldbrian AIRCRAFT AVIONICS TECHNICIAN Work Phone: [facility] Start: 12-28-2016 End: 12-28-2016 Office outpatient visit 40 minutes Chasity Verma [facility] Start: 12-23-2016 End: 12-23-2016 Annotation/Addendum Chasity Verma [facility] Start: 12-23-2016 End: 12-23-2016 Chasity Verma AIRCRAFT AVIONICS TECHNICIAN Work Phone: [facility] Start: 12-21-2016 End: 12-21-2016 Office outpatient visit 15 minutes Chasity Verma [facility] Start: 11-19-2016 End: 11-19-2016 Office outpatient visit 15 minutes Chasity Verma [facility] Start: 11-03-2016 End: 11-03-2016 Office outpatient visit 15 minutes Chasity Verma [facility] Start: 07-26-2016 End: 07-26-2016 Office outpatient visit 15 minutes Chasity Verma [facility] Start: 07-09-2016 End: 07-09-2016 Office outpatient visit 25 minutes Chasity Yepezbrian [facility] Start: 07-02-2016 End: 07-02-2016 Phone Encounter Chasity Verma [facility] Start: 07-02-2016 End: 07-02-2016 Chasity Verma AIRCRAFT AVIONICS TECHNICIAN Work Phone: [facility] Start: 06-29-2016 End: 06-29-2016 Phone Encounter Chasity Verma [facility] Start: 06-29-2016 End: 06-29-2016 Chasity Verma AIRCRAFT AVIONICS TECHNICIAN Work Phone: [facility] Start: 06-01-2016 End: 06-01-2016 Office outpatient visit 15 minutes Chasity Yepezbrian [facility] Start: 04-28-2016 End: 04-28-2016 Office outpatient visit 15 minutes Chasity Verma [facility] Start: 04-01-2016 End: 04-01-2016 Patient encounter procedure Chasity Yepezbrian [facility] Start: 04-01-2016 End: 04-01-2016 Chasity Verma AIRCRAFT AVIONICS TECHNICIAN Work Phone: [facility] Start: 12-10-2015 End: 12-10-2015 Patient encounter procedure Chasity Yepezbrian [facility] Start: 12-10-2015 End: 12-10-2015 Chasity Verma AIRCRAFT AVIONICS TECHNICIAN Work Phone: [facility] Start: 12-09-2015 End: 12-09-2015 Patient encounter procedure Chasity Shayleedonaldbrian [facility] Start: 12-09-2015 End: 12-09-2015 Chasity Shayleeremigio AIRCRAFT AVIONICS TECHNICIAN Work Phone: [facility] Start: 11-12-2015 End: 11-12-2015 Patient encounter procedure Chasity Shayleedonaldbrian [facility] Start: 11-12-2015 End: 11-12-2015 Chasity Verma AIRCRAFT AVIONICS TECHNICIAN Work Phone: [facility] Start: 09-09-2015 End: 09-09-2015 Office outpatient visit 15 minutes Chasity Verma [facility] Start: 07-30-2015 End: 07-30-2015 Office outpatient visit 15 minutes Chasity Verma [facility] Start: 07-14-2015 End: 07-14-2015 Office outpatient visit 25 minutes Chasity Verma [facility] Start: 06-30-2015 End: 06-30-2015 Office outpatient visit 15 minutes Chasity Verma [facility] Start: 06-16-2015 End: 06-16-2015 Office outpatient visit 25 minutes Chasity Verma [facility] Start: 04-29-2015 End: 04-29-2015 Office outpatient visit 15 minutes Chasity Verma [facility] Start: 01-29-2015 End: 01-29-2015 Office outpatient visit 15 minutes Chasity Verma [facility] Start: 01-21-2015 End: 01-21-2015 Office outpatient visit 15 minutes Ch[facility] Start: 11-25-2014 End: 11-25-2014 Office outpatient visit 40 minutes Chasity [facility] Start: 07-26-2014 End: 07-28-2014 Office outpatient visit 15 minutes Chasity Verma [facility] Start: 05-29-2014 End: 06-03-2014 Office outpatient visit 25 minutes Chasity Verma [facility] Start: 05-13-2014 End: 05-13-2014 Phone Encounter Chasity Luci [facility] Start: 05-13-2014 End: 05-13-2014 Chasity Shayleedonaldbrian AIRCRAFT AVIONICS TECHNICIAN Work Phone: [facility] Start: 03-22-2014 End: 03-22-2014 Office outpatient visit 15 minutes Chasity Verma [facility] Start: 11-30-2013 End: 12-02-2013 Office outpatient visit 15 minutes Chasity Verma [facility] Start: 11-19-2013 End: 11-19-2013 Office outpatient visit 25 minutes Chasity Verma [facility] Start: 08-13-2013 End: 08-13-2013 Office outpatient visit 15 minutes Chasity Verma [facility] Start: 07-18-2013 End: 07-19-2013 Patient encounter procedure Chasity Verma [facility] Start: 07-18-2013 End: 07-19-2013 Chasity Verma AIRCRAFT AVIONICS TECHNICIAN Work Phone: [facility] Start: 06-25-2013 End: 06-25-2013 Patient encounter procedure Chasity Verma [facility] Start: 06-25-2013 End: 06-25-2013 Chasity Verma AIRCRAFT AVIONICS TECHNICIAN Work Phone: [facility] Start: 04-26-2013 End: 04-26-2013 Patient encounter procedure Chasity Verma [facility] Start: 04-26-2013 End: 04-26-2013 Chasity Verma AIRCRAFT AVIONICS TECHNICIAN Work Phone: [facility] Start: 03-07-2013 End: 03-07-2013 Office outpatient visit 25 minutes Chasity Verma [facility] Start: 02-23-2013 End: 02-23-2013 Phone Encounter Chasity Verma [facility] Start: 02-23-2013 End: 02-23-2013 Chasity Verma AIRCRAFT AVIONICS TECHNICIAN Work Phone: [facility] Start: 01-29-2013 End: 01-29-2013 Patient encounter procedure Chasity Verma [facility] Start: 01-29-2013 End: 01-29-2013 Chasity Verma AIRCRAFT AVIONICS TECHNICIAN Work Phone: [facility] Start: 11-13-2012 End: 11-13-2012 Patient encounter procedure Chasity Verma [facility] Start: 11-13-2012 End: 11-13-2012 Chasity Verma AIRCRAFT AVIONICS TECHNICIAN Work Phone: [facility] Start: 07-13-2012 End: 07-13-2012 Patient encounter procedure Chasity Verma [facility] Start: 07-13-2012 End: 07-13-2012 Chasity Verma AIRCRAFT AVIONICS TECHNICIAN Work Phone: [facility] Start: 07-05-2012 End: 07-05-2012 Annotation/Addendum Chasity Verma [facility] Start: 07-05-2012 End: 07-05-2012 Chasity Verma AIRCRAFT AVIONICS TECHNICIAN Work Phone: [facility] Start: 05-25-2012 End: 05-25-2012 Patient encounter procedure Chasity Verma [facility] Start: 05-25-2012 End: 05-25-2012 Chasity Verma AIRCRAFT AVIONICS TECHNICIAN Work Phone: [facility] Start: 03-28-2012 End: 03-28-2012 Office outpatient visit 15 minutes Chasity Verma [facility] Start: 01-21-2012 End: 01-21-2012 Phone Encounter Chasity Verma [facility] Start: 01-21-2012 End: 01-21-2012 Chasity Verma AIRCRAFT AVIONICS TECHNICIAN Work Phone: [facility] Start: 01-19-2012 End: 01-19-2012 Patient encounter procedure Chasity Verma [facility] Start: 01-19-2012 End: 01-19-2012 Chasity Verma AIRCRAFT AVIONICS TECHNICIAN Work Phone: [facility] Start: 10-19-2011 End: 10-19-2011 Patient encounter procedure Chasity Verma [facility] Start: 10-19-2011 End: 10-19-2011 Chasity Verma AIRCRAFT AVIONICS TECHNICIAN Work Phone: [facility] Start: 05-05-2011 End: 05-05-2011 Annotation/Addendum Chasity Verma [facility] Start: 05-05-2011 End: 05-05-2011 Chasity Verma AIRCRAFT AVIONICS TECHNICIAN Work Phone: [facility] Start: 04-23-2011 End: 04-23-2011 Patient encounter procedure Chasity Verma [facility] Start: 04-23-2011 End: 04-23-2011 Chasity Verma AIRCRAFT AVIONICS TECHNICIAN Work Phone: [facility] Start: 12-23-2010 End: 12-23-2010 Patient encounter procedure Chasity Verma [facility] Start: 12-23-2010 End: 12-23-2010 Chasity Verma AIRCRAFT AVIONICS TECHNICIAN Work Phone: [facility] Start: 12-01-2010 End: 12-01-2010 Phone Encounter Chasity Verma [facility] Start: 12-01-2010 End: 12-01-2010 Chasity Verma AIRCRAFT AVIONICS TECHNICIAN Work Phone: [facility] Start: 07-27-2010 End: 07-27-2010 Erroneous Entry Chasity Verma [facility] Start: 07-27-2010 End: 07-27-2010 Chasity Verma AIRCRAFT AVIONICS TECHNICIAN Work Phone: [facility] Start: 07-27-2010 End: 07-27-2010 Office outpatient visit 15 minutes Chasity Verma [facility] Start: 07-21-2010 End: 07-21-2010 Annotation/Addendum Chasity Verma [facility] Start: 07-21-2010 End: 07-21-2010 Chasity Verma AIRCRAFT AVIONICS TECHNICIAN Work Phone: [facility] Start: 07-20-2010 End: 07-20-2010 Office outpatient visit 25 minutes Chasity Verma [facility] Start: 06-19-2010 End: 06-19-2010 Patient encounter procedure Chasity Verma [facility] Start: 06-19-2010 End: 06-19-2010 Chasity Verma AIRCRAFT AVIONICS TECHNICIAN Work Phone: [facility] Start: 05-11-2010 End: 05-11-2010 Phone Encounter Chasity Verma [facility] Start: 05-11-2010 End: 05-11-2010 Chasity Verma AIRCRAFT AVIONICS TECHNICIAN Work Phone: [facility] Start: 05-04-2010 End: 05-04-2010 Patient encounter procedure Chasity Verma [facility] Start: 05-04-2010 End: 05-04-2010 Chasity Verma AIRCRAFT AVIONICS TECHNICIAN Work Phone: [facility] Start: 04-24-2010 End: 04-27-2010 Erroneous Entry Chasity Verma [facility] Start: 04-24-2010 End: 04-27-2010 Chasity Verma AIRCRAFT AVIONICS TECHNICIAN Work Phone: [facility] Start: 03-27-2010 End: 03-27-2010 Patient encounter procedure Chasity Verma [facility] Start: 03-27-2010 End: 03-27-2010 Chasity Verma AIRCRAFT AVIONICS TECHNICIAN Work Phone: [facility] Start: 03-25-2010 End: 03-25-2010 Patient encounter procedure Chasity Verma [facility] Start: 03-25-2010 End: 03-25-2010 Chasity Verma AIRCRAFT AVIONICS TECHNICIAN Work Phone: [facility] Start: 01-02-2010 End: 01-04-2010 Patient encounter procedure Chasity Verma [facility] Start: 01-02-2010 End: 01-04-2010 Chasity Verma AIRCRAFT AVIONICS TECHNICIAN Work Phone: [facility] Start: 11-24-2009 End: 11-24-2009 Patient encounter procedure Chaisty Verma [facility] Start: 11-24-2009 End: 11-24-2009 Chasity Verma AIRCRAFT AVIONICS TECHNICIAN Work Phone: [facility] Start: 06-24-2009 End: 06-24-2009 Patient encounter procedure Chasity Verma [facility] Start: 06-24-2009 End: 06-24-2009 Chasity Verma AIRCRAFT AVIONICS TECHNICIAN Work Phone: [facility] Start: 04-07-2009 End: 04-07-2009 Patient encounter procedure Chasity Verma [facility] Start: 04-07-2009 End: 04-07-2009 Chasity Verma AIRCRAFT AVIONICS TECHNICIAN Work Phone: [facility] Start: 03-11-2009 End: 03-11-2009 Phone Encounter Chasity Verma [facility] Start: 03-11-2009 End: 03-11-2009 Chasity Verma AIRCRAFT AVIONICS TECHNICIAN Work Phone: [facility] Start: 03-11-2009 End: 03-11-2009 Historical Summary Chasity Verma [facility] Start: 03-11-2009 End: 03-11-2009 Chasity Verma AIRCRAFT AVIONICS TECHNICIAN Work Phone: [facility] Start: 02-27-2009 End: 02-28-2009 Patient encounter procedure Chasity Verma [facility] Start: 02-27-2009 End: 02-28-2009 Chasity Verma AIRCRAFT AVIONICS TECHNICIAN Work Phone: [facility] Start: 01-27-2009 End: 01-27-2009 Patient encounter procedure Chasity Verma [facility] Start: 01-27-2009 End: 01-27-2009 Chasity Verma AIRCRAFT AVIONICS TECHNICIAN Work Phone: [facility] Start: 01-17-2009 End: 01-17-2009 Patient encounter procedure Chasity Verma [facility] Start: 01-17-2009 End: 01-17-2009 Chasity Verma AIRCRAFT AVIONICS TECHNICIAN Work Phone: [facility] Start: 09-26-2008 End: 09-27-2008 Patient encounter procedure hCasity Verma [facility] Start: 09-26-2008 End: 09-27-2008 Chasity Verma AIRCRAFT AVIONICS TECHNICIAN Work Phone: [facility] Start: 05-31-2008 End: 06-02-2008 Patient encounter procedure Chasity Verma [facility] Start: 05-31-2008 End: 06-02-2008 Chasity Verma AIRCRAFT AVIONICS TECHNICIAN Work Phone: [facility] Start: 03-20-2008 End: 03-20-2008 Patient encounter procedure Chasity Verma [facility] Start: 03-20-2008 End: 03-20-2008 Chasity Verma AIRCRAFT AVIONICS TECHNICIAN Work Phone: [facility] Start: 10-10-2007 End: 10-10-2007 Patient encounter procedure Chasity Verma [facility] Start: 10-10-2007 End: 10-10-2007 Chasity Verma AIRCRAFT AVIONICS TECHNICIAN Work Phone: [facility] Start: 07-04-2007 End: 07-04-2007 Patient encounter procedure Chasity Verma [facility] Start: 07-04-2007 End: 07-04-2007 Chasity Verma AIRCRAFT AVIONICS TECHNICIAN Work Phone: [facility] Start: 03-24-2007 End: 03-24-2007 Patient encounter procedure Chasity Verma [facility] Start: 03-24-2007 End: 03-24-2007 Chasity Verma AIRCRAFT AVIONICS TECHNICIAN Work Phone: [facility] Start: 11-28-2006 End: 11-28-2006 Patient encounter procedure Chasity Verma [facility] Start: 11-28-2006 End: 11-28-2006 Chasity Verma AIRCRAFT AVIONICS TECHNICIAN Work Phone: [facility] Start: 05-30-2006 End: 06-03-2006 Office outpatient visit 40 minutes Chasity Verma [facility] Start: 02-25-2006 End: 02-28-2006 Patient encounter procedure Chasity Verma [facility] Start: 02-25-2006 End: 02-28-2006 Chasity Verma AIRCRAFT AVIONICS TECHNICIAN Work Phone: [facility] Start: 01-10-2006 End: 01-12-2006 Office outpatient visit 40 minutes Chasity Verma [facility] Start: 01-06-2006 End: 01-06-2006 Historical Summary Chasity Verma [facility] Start: 01-06-2006 End: 01-06-2006 Chasity Verma AIRCRAFT AVIONICS TECHNICIAN Work Phone: [facility] Procedures Date Procedure Procedure Detail Performing Clinician Start: 06-11-2024 MRI of lumbar spine Zena CANNON Work Phone: Start: 05-08-2024 X-ray of lumbosacral spine Zena CANNON Work Phone: Start: 02-01-2023 End: 02-01-2023 Radex shoulder complete minimum 2 views Ania Ángela DO Work Phone: Start: 01-18-2022 Lipid 1996 panel - Serum or Plasma Robson Beck MD Work Phone: Start: 11-18-2021 Gluc bld gluc mntr dev cleared fda spec home use [facility] Provider Start: 10-28-2021 Gluc bld gluc mntr dev cleared fda spec home use [facility] Provider Start: 10-13-2021 Radiologic exam chest 2 views Ada Jimenez APRN.AIRCRAFT AVIONICS TECHNICIAN Work Phone: Start: 10-05-2021 Adult depression screening assessment Watch Repairer Work Phone: Start: 09-05-2021 History of coronary artery bypass grafting S/P CABG x 1 Rayray Nixon PSS Start: 06-25-2020 Adult depression screening assessment Man Mayer MD Work Phone: Start: 08-13-2019 End: 08-13-[address] Lung Screening Comments: See Note; NOTES: [facility] Imaging Services [address] [place] [address] Lung Screening MR#: [id number] Acct: [id number] Name: CAMI ANDRADE Rep #: [id number] : 1965 M [id number] From: Wild Bell MD PCP: ROSLYN Adam Status: [facility] CLI Study: Low Dose CT Lung Screening Date of Exam: 08/13/19 Exam# [id number] Ordering Dr: Chasity Verma STUDY: LOW DOSE CT LUNG CANCER SCREENING REASON FOR EXAM: Male, 53 years old. Nicotine dependence, smokes 2 cigars per day x 10 years, chronic bronchitis, hypertension, [place] 15 years ago, coronary stent x 1, 250lbs. RADIATION DOSAGE (If Supplied By Facility): CTDIvol = ( 4.02 ) mGy, DLP = ( 155.52 ) mGycm TECHNIQUE: No contrast was administered. Low dose technique was utilized (average mAS-38 and kVp 120). 1.25 mm axial source images with a slice interval of 1.25-mm were reconstructed in lung windows. 2.5 mm axial source images with a slice interval of 2.5-mm were reconstructed in lung windows. 5.0 mm axial source images with a slice interval of 5.0-mm were reconstructed in soft tissue windows. Nodule measured using lung windows on PACS and/or independent workstation with automated measurement of minimum and maximum diameter. Nodule measurement reported as average diameter rounded to the nearest whole number. Growth is defined as an increase ins size of greater than 1.5 mm. COMPARISON: None. NODULES: No nodules are seen. Aorta: Unremarkable. Coronary arteries: Coronary artery calcification. Mediastinal nodes: Calcified right hilar lymph nodes as well as the pretracheal lymph nodes. Other chest and abdominal findings: CT/Low Dose CT Lung Screening IMPRESSION: Lung-RADS category 2 - Continue annual screening with LDCT in 12 months. IMPORTANT NOTES FOR USE: ACR Lung-RADS Version 1.0 Assessment Categories Release Date: August 06, 2013 Category: Coded 0-4 bases on nodule(s) with highest degree of suspicion. Negative screen is defined as categories 1 and 2; a positive screen is defined as categories 3 and 4. Category 3 and 4A nodules that are unchanged on interval CT should be coded as category 2, and individuals returned to screening in 12 months. Category 4X: Category 3 or 4 nodules with additional imaging findings that increase the suspicion of lung cancer, such as spiculation, GGN that doubles in size in 1 year, enlarged lymph notes, etc. Category Modifiers: S (significant finding unrelated to lung cancer) and C (prior history of treated lung cancer) may be added to the 0-4 Lung-RADS Electronically Signed: Wild Nicholaselisha, at 15:30 EDT , Service support , CC: ROSLYN Verma Prescription Eyeglass Maker: Signed Chasity Verma Work Phone: Start: 07-10-2018 End: 07-10-2018 Chest PA and Lateral Comments: See Note; NOTES: [facility] Imaging Services [address] [place] [id number] Chest PA and Lateral MR#: [id number] Acct: [id number] Name: CAMI ANDRADE Rep #: [id number] : 1965 M [id number] From: Giselle Kay MD PCP: Chasity Verma NP Status: REG CLI Study: Chest PA and Lateral Date of Exam: 07/10/18 Exam# [id number] Ordering Dr: Arianna hSafer STUDY: X-RAY CHEST REASON FOR EXAM: Male, 52 years old. Right-sided pain. TECHNIQUE: PA and lateral views of the chest. COMPARISON: December 21, 2016 FINDINGS: The lungs are clear and expanded. There is no demonstrated pleural abnormality. Normal size heart. Normal mediastinum and jordon. Normal visualized pulmonary arteries. Normal visualized aortic arch and descending thoracic aorta. Normal visualized thoracic spine. Normal visualized ribs, clavicles, and shoulders. There is no demonstrated abnormality of the visualized soft tissue structures of the upper abdomen. RAD/Chest PA and Lateral IMPRESSION: No acute cardiopulmonary process. Electronically Signed: Giselle Kay MD at 18:59 EDT Tel , Service support , CC: Chasity Verma NP; ROSLYN Shafer Prescription Eyeglass Maker: Signed Arianna Shafer Start: 07-10-2018 End: 07-11-2018 Thoracic Spine 3 Views Comments: See Note; NOTES: [facility] Imaging Services [address] [place] [address] Thoracic Spine 3 Views MR#: [id number] Acct: [id number] Name: CAMI ANDRADE Rep #: [id number] : 1965 M 52 From: Prateek Sauceda MD PCP: Chasity Verma NP Status: REG CLI Study: Thoracic Spine 3 Views Date of Exam: 07/10/18 Exam# [id number] Ordering Dr: Arianna Shafer STUDY: X-RAY - THORACIC SPINE REASON FOR EXAM: Male, 52 years old. Right-sided pain. No known injury TECHNIQUE: 3 view(s) of the thoracic spine were obtained. COMPARISON: None. FINDINGS: There is straightening of the normal thoracic kyphosis. There is no substantial scoliosis. Normal thoracic vertebrae and endplates. Normal disc space heights. The soft tissue structures are unremarkable. RAD/Thoracic Spine 3 Views IMPRESSION: Straightening of the thoracic spine which could be due to muscle spasm. No demonstrated acute fracture. Electronically Signed: Prateek Sauceda MD at 10:06 EDT Tel , Service support , CC: Chasity Verma NP; SHAGUFTA-Emilie Shafer Prescription Eyeglass Maker: Signed Arianna Shafer Start: 06-06-2018 End: 06-06-2018 Follow-up visit Comments: See Note; NOTES: [facility] [address] [place] [address] OFFICE VISIT Date of Service: 06/05/18 MR#: [id number] Acct: [id number] Name: CAMI ANDRADE Rep #: [id number] : 1965 Provider: SHAGUFTA Beltran Age/Sex: 52/M Location[facility] Status: Signed Intake Vital Signs06/05/18 Height 5 ft 9 in 06/05/18 Weight: 218 lb Intake Visit Reasons: VIRUS, COUGH Accompanied by: self Allergies No Known Allergies Allergy (Verified 12/16/17 09:49) Medications Aspirin [Aspirin, Baby] 81 mg PO DAILY 06/28/16 [History Confirmed 12/16/17] Atorvastatin Calcium [Lipitor] 40 mg PO QHS 06/28/16 [History Confirmed 12/16/17] Clopidogrel Bisulfate [Plavix] 75 mg PO DAILY 06/28/16 [History Confirmed 12/16/17] Lorazepam [Ativan] 0.5 mg PO DAILY PRN PRN 06/28/16 [History Confirmed 12/16/17] Metoprolol Succinate [Toprol Xl] 25 mg PO DAILY 06/28/16 [History Confirmed 12/16/17] Ramipril [Altace] 10 mg PO DAILY 06/28/16 [History Confirmed 12/16/17] amoxicillin 875 mg-potassium clavulanate 125 mg tablet 1 tab PO BID #20 tab 06/05/18 [Rx Confirmed 06/05/18] atomoxetine 18 mg capsule 18 mg PO DAILY cap 06/05/18 [History Confirmed 06/05/18] prednisone 10 mg tablet 20 mg PO DAILY 10 Days #20 tab 06/05/18 [Rx Confirmed 06/05/18] PFSH Medical History Paroxysmal atrial fibrillation (Acute) Essential hypertension (Chronic) Arteriosclerotic heart disease (ASHD) (Chronic) Hyperlipidemia LDL goal <130 (Chronic) GERD (gastroesophageal reflux disease) (Chronic) Hx of myocardial infarction (Chronic) Hypothyroid (Chronic) Surgical History History of cholecystectomy (Chronic) History of heart artery stent (Chronic) Family History Brother Diabetes Thyroid disorder Father Diabetes Aunt Diabetes Mother CVA (cerebral vascular accident) Thyroid disorder Sister Thyroid disorder Grandfather Stomach cancer Grandmother Hx of ovarian cancer Social History Smoking Status: Current every day smoker tobacco type: cigars per week: 7 alcohol intake: current alcohol intake frequency: 0-2 drinks per day Alcohol type: beer caffeine: Yes Type: coffee Number of servings: 3 HPI HPI (General) HPI HPI: CAMI ANDRADE, is a 52 M who presents to the office today for 3 weeks ago was treated for illness with a z-brennan but had little coughing. That got better but the coughing kept going and now zamora been coughing up yellow and very tired headache. When I had walking pneumonia this is what it felt like. ROS Const Constitutional: Positive for headache(s) ENT ENT: Positive for nasal discharge, post nasal drip and headache(s) Resp Respiratory: Positive for cough (yellow) Cough: Yes productive Gastro GI: Yes diarrhea, Yes nausea/dyspepsia Neuro Neurology: Positive for headache(s) Exam Const Constitutional: Yes cooperative, Yes ill appearing Orientation: Yes alert, awake and oriented x3 HENMT Head: Yes normocephalic Ear: Yes hearing grossly normal bilaterally TM-Right: normal TM-Left: normal Pinna-Right: within normal limits Pinna-Left: within normal limits Face: Yes normal facial exam Nose: Yes external nose normal Mouth: Yes oral mucosae normal Teeth and Gingiva: Yes dentition normal Throat: Yes posterior oropharynx normal, Yes redness Neck Neck: normal visual inspection Thyroid: thyroid normal Eyes General: Yes appearance normal, both eyes and all related structures Chest Chest palpation AND inspection: Yes normal inspection of the chest Resp Effort AND Inspection: Yes audible wheezes (inspirtory wheezing) and decreased respiratory effort Auscultation: Yes bronchovesicular breath sounds and diminished lung sounds Cardio Palpitation: Yes normal PMI Rate: Yes regular rate Rhythm: Yes regular rhythm GI Inspection: Yes normal to inspection Auscultation: Yes normal bowel sounds Musc Cervical Spine: Yes cervical ROM normal Thoracic/Lumbar Spine: Yes thoracic and lumbar spine normal to inspection Skin General: no rashes or lesions noted Lesions: Yes no lesions Extrem General: Yes normal to inspection Neuro General: Yes alert and oriented x3 Psych Appearance: Positive grossly normal Mood: Positive congruent mood Affect: Positive normal affect Assessment AND Plan Problems 1. Wheezing on inspiration R06.2 2. Bronchitis J40 Patient Instructions Take the antibiotics and the prednisone as directed till gone with food or after eating push the fluids and cool mist vaporizer at the bedside. may take Claritin or Zyrtec 10 mg orally 2x a day for 5-7 days then once a day USe the inhaler as needed 2 puffs every 4 hrs as needed or before walking or working or climbing steps or ladders Follow up as needed Medications New: Coding Level of Care Code Off vis,est,level 3 Diagnoses Wheezing on inspiration R06.2 Bronchitis J40 06/06/18 1117 <Electronically signed by Jordyn MCGOWAN> Date Jordyn MCGOWAN CC: Chasity Verma Start: 12-16-2017 End: 12-16-2017 Cardiology Visit Report Comments: See Note; NOTES: [facility] [address] [place] [address]. [address] [place] [address] OFFICE VISIT Date of Service: 12/16/17 MR#: [id number] Acct: [id number] Name: CAMI ANDRADE Rep #: [id number] : 1965 Provider: Billy Jacobs Age/Sex: 52/M Location: [facility] Status: Signed HPI HPI Details: CAMI ANDRADE, is a 52 M who presents to the office today for a hospital f/u. He was last in to see us in 2014. 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 He also has a history of cardiac catheterization related spontaneous ventricular fibrillation in May 2007. He has hyperlipidemia. He sts that he was in the ER on Tuesday at [facility]. He was in for palpitations. He was noted to have low Mg++. He sts that his HR was approx 160. It was irregular. He sts that it lasted for approx 1 hour. He was given a Mg++ supplement and asked to follow up with us. he thinks that his heart was irregular one other time before that. He sts that on Tuesday he did have Etoh and smoked cigarettes. He has not had any further episodes since then. He does not have any chest pain/heaviness/tightness. He does not have any near syncope/syncope. He does not have any worsening SOB. He sts that he normally keeps himself active at work. He works at [employer]. Intake Vital Signs12/16/17 Height 5 ft 9 in 12/16/17 Weight: 237 lb 12/16/17 Body Mass Index (BMI) 34.9 12/16/17 Blood Pressure 126/82 12/16/17 Blood Pressure Location Lt brachial Intake Visit Reasons: ER FU 12/12\ [employer] In[employer] Required: No Accompanied by: None Is patient in pain?: No Allergies No Known Allergies Allergy (Verified 12/16/17 09:49) Medications Aspirin [Aspirin, Baby] 81 mg PO DAILY 06/28/16 [History Confirmed 12/16/17] Atorvastatin Calcium [Lipitor] 40 mg PO QHS 06/28/16 [History Confirmed 12/16/17] Clopidogrel Bisulfate [Plavix] 75 mg PO DAILY 06/28/16 [History Confirmed 12/16/17] Lorazepam [Ativan] 0.5 mg PO DAILY PRN PRN 06/28/16 [History Confirmed 12/16/17] Metoprolol Succinate [Toprol Xl] 25 mg PO DAILY 06/28/16 [History Confirmed 12/16/17] Ramipril [Altace] 10 mg PO DAILY 06/28/16 [History Confirmed 12/16/17] Ejection fraction %: 65 to 70 PFSH Medical History Arteriosclerotic heart disease (ASHD) (Chronic) Hypertension (Chronic) Hyperlipidemia LDL goal <130 (Chronic) GERD (gastroesophageal reflux disease) (Chronic) Hx of myocardial infarction (Chronic) Hypothyroid (Chronic) Surgical History History of cholecystectomy (Chronic) History of heart artery stent (Chronic) Family History Brother Diabetes Thyroid disorder Father Diabetes Aunt Diabetes Mother CVA (cerebral vascular accident) Thyroid disorder Sister Thyroid disorder Grandfather Stomach cancer Grandmother Hx of ovarian cancer Social History Smoking Status: Current every day smoker tobacco type: cigars per week: 7 alcohol intake: current alcohol intake frequency: 0-2 drinks per day Alcohol type: beer caffeine: Yes Type: coffee Number of servings: 3 ROS Const Const: Negative for weakness, fatigue, fever(s) or headache(s) Eyes Eyes: Negative for blind spots, loss of peripheral vision or transient loss of vision ENT ENT: Negative for headache(s), dizziness, tinnitus or Nosebleed/epistaxis Cardio Chest Pain: No Palpitations: Yes Edema: None Muscle aches with walking: None Resp Respiratory: Negative for SOB with activity, SOB at rest, SOB orthopnea\SOB lying down or Cough GI GI: Negative nausea, vomiting, heartburn or vomiting blood/hematemesis : Negative for hematuria Musc Musc: Negative for muscle aches/ myalgia Neuro Neuro: Negative for weakness, headache(s), dizziness, near syncope, syncope, lightheadedness or orthostatic symptoms [place] Hematologic/Lymphatic: Negative for easy bleeding Endo Endo: Negative for fatigue Cardiology Exam Const Appearance: cooperative, no acute distress and well developed Orientation: alert, awake and oriented x3 Head Head: normocephalic and atraumatic Mouth: moist mucous membranes Eyes General: appearance normal, both eyes and all related structures Conjunctivae: conjunctivae normal Pupils: PERRL EOM: EOM intact bilaterally Neck Neck: normal visual inspection, no lymphadenopathy and no JVD Carotids: Negative bruit Neck Mass: Negative Neck mass Chest Chest inspection: normal inspection of the chest and symmetric chest movement Auscultation: Bilateral: Clear to Auscultation Cardio Palpation: normal PMI Rate: regular rate Rhythm: regular rhythm Heart sounds: S1 normal and S2 normal; negative rub, gallop or murmur GI GI: normal to inspection, soft, no hepatosplenomegaly and bowel sounds present; negative tender Neuro General: alert, awake, oriented x3, CN's II-XI intact bilaterally and moves all extremities Extremities Pulses: Normal: Right Posterior Tibial Pulse, Left Posterior Tibial Pulse, Right Radial Pulse, Left Radial Pulse Lower Extremity Edema: None: Bilateral Psych Psychological: normal affect Supplemental Info Stress test in 2015 demonstrated Rest and stress SPECT Cardiolite nuclear imaging demonstrate myocardial perfusion changes potentially compatible with the effects of shifting soft tissue attenuation/artifact being more prominent at rest as opposed to stress. However, an area of previous myocardial injury/infarction involving portions of the distal inferior/inferoapical segments with mild periinfarct related myocardial ischemia cannot be excluded. The gated Cardiolite study reports an LVEF of 69%. Heart cath following stress test demonstrated Moderate single vessel coronary artery disease. Mild proximal left anterior descending artery ectasia. 0% in-stent restenosis of the pre-existing stent in the mid left anterior descending artery. (Drug Eluting) Proximal to mid right coronary artery ectasia. 50% stenosis in the distal left circumflex artery. Mildly-moderately elevated left ventricular end diastolic pressure, 19 mm(hg). Comparison was made with the previous angiogram dated September 2004. Assessment AND Plan 1. Arteriosclerotic heart disease (ASHD) I25.10 Plan Stable, from a cardiac standpoint patient does not have any symptoms of angina. We recommend that they continue with current aggressive medical management and risk factor modification. 2. Essential hypertension I10 Plan Blood pressure is well controlled on current medications, we do not recommend any changes at this time. 3. Hyperlipidemia LDL goal <130 E78.5 Plan These have been managed by primary care doctor. 4. Hypomagnesemia E83.42 Plan Will reobtain labs to evaluate. Orders Orders: 5. Paroxysmal atrial fibrillation I48.0 Plan Patient appears to be in sinus rhythm today. He has not had any further palpitations since his ER visit. Did express to the patient that this was likely related to his EtOH intake and dehydration this past weekend. Did advise of lifestyle modifications to assist with this. For now we will continue to monitor. He does have a chads score of 0-1. Feel that he would be okay maintaining his aspirin and Plavix. If he has any further recurrence we will need to reconsider anticoagulation. Did discuss obtaining a Holter monitor versus a 30 day event monitor. Patient hesitant to proceed at this time. However if he has any further recurrence agreeable to do so. Plan Detail Other Orders Orders: Additional Comments Have requested medical records from [facility] emergency room. Thank you for allowing us to participate in the patients plan of care, if you have any questions please do not hesitate to call. This note was generated using a voice recognition system and there may be incorrect words, spelling or punctuation that were not noted when reviewing the office note prior to saving. Follow Up 3 Months (MMM) Coding Level of Care Code Off vis,est,level 4 Diagnoses Arteriosclerotic heart disease (ASHD) I25.10 Essential hypertension I10 Hypertension type: essential hypertension Hyperlipidemia LDL goal <130 E78.5 Hypomagnesemia E83.42 Paroxysmal atrial fibrillation I48.0 Atrial fibrillation type: paroxysmal Coding Level of Care Code Off vis,est,level 4 Diagnoses Arteriosclerotic heart disease (ASHD) I25.10 Essential hypertension I10 Hypertension type: essential hypertension Hyperlipidemia LDL goal <130 E78.5 Hypomagnesemia E83.42 Paroxysmal atrial fibrillation I48.0 Atrial fibrillation type: paroxysmal 12/16/17 1031 <Electronically signed by Billy CANNON> Date Billy CANNON Cosigner Signature: Date (if applicable) CC: Chasity Verma Start: 11-11-2017 End: 11-14-2017 Follow-up visit Comments: See Note; NOTES: [facility] [address] [place] [address] OFFICE VISIT Date of Service: 11/11/17 MR#: [id number] Acct: [id number] Name: CAMI ANDRADE Yola Rep #: [id number] : 1965 Provider: SHAGUFTA Beltran Age/Sex: 52/M [facility] Status: Signed Intake Vital Signs11/11/17 Height 5 ft 9.5 in 11/11/17 Weight: 238 lb Intake Visit Reasons: SORE THROAT, nausea Accompanied by: self Is patient in pain?: Yes Allergies No Known Allergies Allergy (Verified 06/28/16 17:45) Medications Aspirin [Aspirin, Baby] 81 mg PO DAILY 06/28/16 [History Confirmed 11/11/17] Atorvastatin Calcium [Lipitor] 40 mg PO QHS 06/28/16 [History Confirmed 11/11/17] Clopidogrel Bisulfate [Plavix] 75 mg PO DAILY 06/28/16 [History Confirmed 11/11/17] Lorazepam [Ativan] 0.5 mg PO DAILY PRN PRN 06/28/16 [History Confirmed 11/11/17] Lorazepam [Ativan] 1 mg PO DAILY PRN PRN #10 tab 06/28/16 [Rx] Metoprolol Succinate [Toprol Xl] 25 mg PO DAILY 06/28/16 [History Confirmed 11/11/17] Ramipril [Altace] 10 mg PO DAILY 06/28/16 [History Confirmed 11/11/17] amoxicillin 875 mg-potassium clavulanate 125 mg tablet 1 tab PO BID #20 tab 11/11/17 [Rx Confirmed 11/11/17] PFSH Medical History GERD (gastroesophageal reflux disease) (Acute) Hx of myocardial infarction (Acute) Hyperlipidemia LDL goal <130 (Acute) Hypothyroid (Acute) Hypertension (Chronic) Surgical History History of cholecystectomy (Acute) History of heart artery stent (Acute) Family History Brother Diabetes Thyroid disorder Father Diabetes Aunt Diabetes Mother CVA (cerebral vascular accident) Thyroid disorder Sister Thyroid disorder Grandfather Stomach cancer Grandmother Hx of ovarian cancer Social History Smoking Status: Current every day smoker HPI HPI (General) HPI HPI: CAMI ANDRADE, is a 52 M who presents to the office today for ST and nausea has been going on for a week and has not gotten better 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 ROS Const Constitutional: Positive for other (nausea) ENT ENT: Positive for sore throat Gastro GI: Yes other (nausea) Neuro Neurology: Positive for other (headaches) Exam Const Constitutional: Yes cooperative Nutritional Appearance: Yes average body habitus HENMT Head: Yes normocephalic Ear: Yes hearing grossly normal bilaterally TM-Right: normal TM-Left: normal Face: Yes normal facial exam Nose: Yes external nose normal Mouth: Yes oral mucosae normal, Yes other (erythematous) Teeth and Gingiva: Yes dentition normal Throat: Yes posterior oropharynx normal Neck Neck: normal visual inspection Lymphadenopathy: Yes cervical Eyes General: Yes appearance normal, both eyes and all related structures Resp Effort AND Inspection: Yes normal respiratory effort Auscultation: Yes clear to auscultation bilaterally Cardio Palpitation: Yes normal PMI Rhythm: Yes regular rhythm GI Auscultation: Yes normal bowel sounds Palpation: Yes soft Extrem General: Yes normal to inspection Psych Appearance: Positive grossly normal Assessment AND Plan Problems 1. Pharyngitis J02.9 2. Nausea R11.0 3. Frequent headaches R51 4. Maxillary sinusitis J32.0 Patient Instructions Take the antibiotic till gone with food or after eating take Pseudafed over the counter 30 mg orally 2 2 x a day for 5-7 days to drain the head take Zyrtec 10 mg orally 2 x a day also for 5 -7 days then once a day for the postnasal drip Orders Orders: Medications New: 11/11/17 1852 <Electronically signed by Jordyn MCGOWAN> Date Jordyn MCGOWAN CC: Chasity Verma Start: 12-21-2016 End: 12-22-2016 Chest PA and Lateral Comments: See Note; NOTES: [facility] Imaging Services [address] [place] [address] Chest PA and Lateral MR#: [id number] Acct: [id number] Name: CAMI ANDRADE Rep #: [id number] : 1965 M 51 From: Branden Sow MD PCP: Chasity Verma Status: REG CLI Study: Chest PA and Lateral Date of Exam: 12/21/16 Exam# [id number] Ordering Dr: Arianna Shafer NP-Emilie STUDY: X-RAY CHEST REASON FOR EXAM: Male, 51 years old. Cough. TECHNIQUE: Frontal and lateral views of the chest. COMPARISON: 06/28/2016. FINDINGS: The lungs are clear and expanded. There is no demonstrated pleural abnormality. Normal size heart. Normal mediastinum and jordon. Normal visualized pulmonary arteries. Normal visualized aortic arch and descending thoracic aorta. Normal visualized thoracic spine. Normal visualized ribs, clavicles, and shoulders. There is no demonstrated abnormality of the visualized soft tissue structures of the upper abdomen. RAD/Chest PA and Lateral IMPRESSION: Normal x-ray examination of the chest. Electronically Signed: Branden Sow MD at 16:19 EDT , Service support , CC: Chasity Verma; ROSLYN Shafer Prescription Eyeglass Maker: Signed Arianna Shafer Start: 07-13-2016 End: 07-13-2016 Abdomen Complete Comments: See Note; NOTES: [facility] Imaging Services [address] [place] [address] Verdana 4d Abdomen Complete MR#: [id number] Acct: [id number] Name: DORIS ANDRADE Rep #: [id number] : 1965 M 50 From: Wild Bell MD PCP: Frances Alonso DO Status: REG CLI Study: Abdomen Complete Date of Exam: 07/13/16 Exam# [id number] Ordering Dr: Chasity Verma STUDY: ABDOMINAL ULTRASOUND REASON FOR EXAM: Male, 50 years old. Right lower quadrant fullness. Hypercholesterolemia. TECHNIQUE: Transabdominal ultrasound was performed with real-time and static allison scale imaging. TECHNICAL QUALITY: Adequate. COMPARISON: Comparison is made with prior ultrasound examination dated July 15, 2015. FINDINGS: Liver: The liver measures 16.6 cm. There is increased echogenicity consistent with fatty infiltration. The bile ducts are within normal limits. There is hepatic color flow. The direction of portal flow is hepatopetal. There is no demonstrated mass lesion. Gallbladder: The patient is status post cholecystectomy. Common Bile Duct (C.B.D.): The common bile duct measures 4.4 mm. Pancreas: There is nonvisualization of the pancreas due to overlying bowel gas. Spleen: Normal size of the spleen. The spleen measures 12.4 cm x 6.5 cm x 4.4 cm. Right Kidney: Normal size of the right kidney. The right kidney measures 13.4 cm x 4.9 cm x 6.8 cm. Normal renal cortex. The right cortex measures 2.1 cm. There is no demonstrated renal mass or cyst. There is no right hydronephrosis. Left Kidney: Normal size of the left kidney. The left kidney measures 12.8 cm x 4.3 cm x 5.7 cm. Normal renal cortex. The left cortex measures 1.4 cm. There is no demonstrated renal mass or cyst. There is no left hydronephrosis. Aorta: Unremarkable I.V.C.: The IVC is patent. There is no ascites. The area of fullness in the right lower quadrant corresponds to a 1.1 cm x 0.7 cm x 0.7 cm lipoma. US/Abdomen Complete IMPRESSION: Fatty infiltration of the liver. Small lipoma in the right lower quadrant. Electronically Signed: Wild Bell MD at 10:42 EDT Tel [phone], Service support [phone], CC: Chasity Verma; Frances lAonso DO Prescription Eyeglass Maker: Signed Chasity Verma Work Phone: Start: 07-06-2016 End: 07-06-2016 Emergency Department Summary Comments: See Note; NOTES: [facility] Medical Records Department [address] [place] [address] Emergency Department Summary MR#: [id number] Acct: [id number] Name: DORIS ANDRADE Yola Rep #: [id number] : 1965 50 From: Poly Guzman PCP: Frances Alonso DO Status: [facility] ER DATE OF SERVICE: 06/28/[address] Poly Guzman dictating on behalf of Dr. Patricio Morgan. HISTORY OF PRESENT ILLNESS: The patient is a 50-year-old male presenting to the Emergency Department for palpitations and shortness of breath. He reports that his symptoms started suddenly today while at rest and have been intermittent in nature throughout the course of the afternoon. He states that his symptoms have currently resolved. He denies any known exacerbating or relieving factors. Additional associated symptoms include mild shortness of breath; however, he denies any type of chest pain. He states that he has a history of panic attacks for which he has been out of his Ativan medication for several months. He feels that his symptoms are similar in nature to his prior panic attacks. He states that he did have a series of similar symptoms over the weekend. However, at that point in time, he did experience some mild chest pain that he described as a sharp stabbing sensation across the anterior chest wall, which was self-limiting in nature and has since resolved. PAST MEDICAL HISTORY: Cardiac history includes remote history of AL with stent placement 11 years ago. Additional history includes hypertension, hypercholesterolemia and tobacco use. REVIEW OF SYSTEMS: Remaining review of systems is negative. PHYSICAL EXAMINATION: VITAL SIGNS: Blood pressure 146/98, temperature 98.3, heart rate 85, respiratory rate 15 at 97% on room air. GENERAL: This is a well-appearing male resting comfortably and in no acute distress. HEENT: Normocephalic, atraumatic. Pupils are equal, round and reactive to light bilaterally. Moist mucous membranes. NECK: Supple. CARDIAC: Regular rate and rhythm. No murmurs. Normal S1, S2. RESPIRATORY: No distress. Clear to auscultation bilaterally. CHEST: Nontender. ABDOMEN: Soft, nontender, nondistended. EXTREMITIES: Nontender, no edema. Peripheral pulses 2+, bilaterally symmetric. SKIN: Normal color, no rash. NEUROLOGIC: He is alert and oriented with a normal speech pattern. EMERGENCY DEPARTMENT COURSE: Upon presentation, the patient's vital signs are within normal limits and he is in no acute distress. EKG demonstrates a sinus rhythm with a rate of 103 with evidence of PACs. There is no evidence of acute ischemia. The patient's CBC and basic metabolic panel are within normal limits. Troponin is negative. TSH measures 6.08. Chest x-ray is negative for acute cardiopulmonary process. He was provided with a dose of Ativan here in the Emergency Department. Upon reevaluation at 1945, he continues to deny any chest pain. He reports that his palpitations have resolved and that his anxiety has improved. A 3-hour repeat troponin is negative. Repeat EKG demonstrates a normal sinus rhythm with a rate of 72 with no evidence of arrhythmia including PACs or ischemia. 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 Concern is for hypothyroidism. CLINICAL IMPRESSION: 1. Palpitations. 2. Anxiety. 3. Hypothyroidism. Poly Guzman MD T: NTS JOB: [id number] Date Poly Guzman 07/06/16 0709 <Electronically signed by Patricio Morgan MD> Cosigner Signature (If Indicated): Date Patricio Morgan MD CC: Frances Alonso DO Date Dictated: 06/28/162121 Date Transcribed: 06/28/162121 Prescription Eyeglass Maker: Santos Verma Start: 07-06-2016 End: 07-06-2016 Discharge Instruction Comments: See Note; NOTES: [facility] Medical Records Department [address] [place] [address] Discharge Instruction 06/28/162115 MR#: [id number] Acct: [id number] Name: DORIS ANDRADE Rep #: [id number] : 1965 50 From: Poly Guzman PCP: Frances Alonso DO Status: DEP ER ED Disposition - Plan for ED Patient: Chief Complaint: Chest Pain Instructions: ED Palpitations Prescriptions: Lorazepam [Ativan] 1 mg PO DAILY PRN PRN #10 tablet PRN Reason: Anxiety Referrals: Frances Alonso DO [Primary Care Provider] - What to do if you have Problems For any increased pain, shortness of breath, bleeding, nausea or vomiting, chest pain, or any unexpected problems, contact your Primary Care Provider. Call [facility] ([phone]) or report to the closest Emergency Room. Call 911 if necessary. 06/29/16 2316 <Electronically signed by Poly Guzman > Date Poly Guzman 07/06/16 0708<Electronically signed by Patricio Morgan MD> Cosigner Signature (If Indicated): Date Patricio Morgan MD CC: Frances Alonso DO Chasity Verma Start: 07-02-2016 End: 07-02-2016 12 lead ECG Comments: See Note; NOTES: [facility] Cardiovascular Services [address] [place] [address] 12 Lead EKG 06/28/162003 MR#: [id number] Acct: [id number] Name: DORIS ANDRADE Rep #: [id number] : 1965 50 From: Jose Sargent MD Attending Dr: Status: DEP ER Ordering Dr: Poly Guzman Date: 06/28/16 Location: ED Sex: M C Admitted: Test Reason : REPEAT Blood Pressure : / mmHG Vent. Rate : 072 BPM Atrial Rate : 072 BPM P-R Int : 148 ms QRS Dur : 094 ms QT Int : 386 ms P-R-T Axes : 009 030 053 degrees QTc Int : 422 ms Normal sinus rhythm Normal ECG Confirmed by JOSE SARGENT ([id number]), material expeditor ZEHRA TOBIN ([id number]) on 07/02/2016 11:01:16 AM Referred By: ZAHEER Confirmed By:JOSE SARGENT 07/02/16 1101 Date Jose Sargent MD CC: Frances Alonso DO Date Dictated: 06/28/162003 Date Transcribed: 06/28/162003 Prescription Eyeglass Maker: Signed Chasity Verma Start: 12-09-2015 End: 12-09-2015 Brain W/WO Contrast Comments: See Note; NOTES: [facility] Imaging Services [address] [place] [address] Verdana 4d Brain W/WO Contrast MR#: [id number] Acct: [id number] Name: DORIS ANDRADE Rep #: [id number] : 1965 M 50 From: Zafar Singh DO PCP: James Redmond Status: REG CLI Study: Brain W/WO Contrast Date of Exam: 12/09/15 Exam# [id number] Ordering Dr: James Redmond STUDY: MRI BRAIN WITH AND WITHOUT CONTRAST REASON FOR EXAM: Male, 50 years old. Headache, dizziness and blurred vision for 10 days. TECHNIQUE: Standardized multiplanar fat and water weighted pulse sequences were obtained. 10 ml of Gadavist contrast material was administered intravenously for the contrast portion of the examination. COMPARISON: None. FINDINGS: Normal size of the ventricles and extra-axial spaces for the patient's age. Normal white matter tracts of the supratentorial brain. The left frontal subcortical white matter 4 mm signal intensity is noted consistent with mild micro-ischemic change. There is no evidence for recent intracranial ischemia or other cause of cytotoxic edema on diffusion weighted imaging (DWI). Normal T2* images of the brain without demonstrated susceptibility artifact. There is no demonstrated hemosiderin stain. Normal bilateral basal ganglia. Normal thalami. There is no extra-axial fluid accumulation. Normal flow voids within the major intracranial circulation suggesting patency by spin echo criteria. Normal venous enhancement. There is no enhancing intra-axial or extra-axial abnormality. Normal sella turcica, pituitary gland, infundibular stalk, optic chiasm and hypothalamus. Normal tectal plate and pineal gland. Normal midbrain, aniya and medulla. Normal cerebellum. Normal basal cisterns. Normal bilateral temporal bones. Normal bilateral internal auditory canals. No demonstrated orbital abnormality, within the constraints of a routine brain study. Normal visualized paranasal sinuses. Normal calvarium and skull base. Normal visualized soft tissue structures. Normal visualized upper cervical spine. MRI/Brain W/WO Contrast IMPRESSION: No evidence of acute intracranial bleed, mass or ischemia. No evidence of abnormal enhancement. Electronically Signed: Zafar Singh DO at 19:59 EDT Tel [phone], Service support [phone], CC: James Redmond Prescription Eyeglass Maker: Signed James Redmond Work Phone: Start: 12-09-2015 End: 12-09-2015 MRA Head ONLY without Contrast Comments: See Note; NOTES: [facility] Imaging Services [address] [place] [address] Verdana 4d MRA Head ONLY without Contrast MR#: [id number] Acct: [id number] Name: DORIS ANDRADE Rep #: [id number] : 1965 M 50 From: Zafar Singh DO PCP: James Redmond Status: REG CLI Study: MRA Head ONLY without Contrast Date of Exam: 12/09/15 Exam# [id number] Ordering Dr: James Redmond STUDY: MRA OF THE HEAD WITHOUT CONTRAST REASON FOR EXAM: Male, 50 years old. Headache, dizziness and blurred vision for 10 days. TECHNIQUE: 3-D hfyf-db-guegbq (TOF) imaging was performed with MIPs. The study was performed unenhanced. COMPARISON: None. FINDINGS: Normal bilateral petrous carotid arteries. Normal right cavernous carotid artery with a normal supraclinoid bifurcation. Normal left cavernous carotid artery with a normal supraclinoid bifurcation. Normal right A1 segments of the anterior cerebral artery. Normal left A1 segments of the anterior cerebral artery. Normal intact anterior communicating artery (ACOM). Normal bilateral A2 segments of the anterior cerebral arteries. Normal right M1 and M2 segments of the middle cerebral arteries, with a normal M1 bifurcation. Normal left M1 and M2 segments of the middle cerebral arteries, with a normal M1 bifurcation. There is non-visualization of the right posterior communicating artery (PCOM). There is non-visualization of the left posterior communicating artery (PCOM). Normal bilateral vertebral arteries. Normal basilar artery with a normal basilar bifurcation. The visualized bilateral superior cerebellar (SCA) arteries are normal. Normal bilateral P1, P2 and visualized P3 segments of the posterior cerebral arteries. There is no demonstrated aneurysm of the three affiliated of [place]. There is no major vessel occlusion or hemodynamically significant stenosis. There is no demonstrated abnormality of the visualized brain. MRI/MRA Head ONLY without Contrast IMPRESSION: No evidence of significant steno-occlusive disease or aneurysm. Electronically Signed: Zafar SinghDO at 20:01 EDT Tel [phone], Service support [phone], CC: James Redmond Prescription Eyeglass Maker: Signed James Ruy Work Phone: Start: 07-30-2015 End: 07-30-2015 Spmtry w/vc expiratory becki w/wo mxml vol vntj _ Frances A Fast Work Phone: Comment on above: good effort and curve mild restriction Start: 07-15-2015 End: 07-15-2015 Kidney and Bladder Comments: See Note; NOTES: [facility] Imaging Services [address] [place] [address] Verdana 4d Kidney and Bladder MR#: [id number] Acct: [id number] Name: DORIS ANDRADE Yola Rep #: [id number] : 1965 M 49 From: Wild Bell MD PCP: Frances Alonso DO Status: REG CLI Study: Kidney and Bladder Date of Exam: 07/15/15 Exam# [id number] Ordering Dr: Chasity Verma STUDY: RENAL ULTRASOUND - COMPLETE REASON FOR EXAM: Male, 49 years old. Right flank pain. TECHNIQUE: Ultrasound evaluation of the kidneys was performed with real-time and static barba-scale imaging. COMPARISON: None. FINDINGS: RIGHT KIDNEY: Normal location of the right kidney, which is normal in size. The right kidney measures 12.2 cm x 4.4 cm x 6.9 cm. There is a normal cortex of the right kidney. The renal cortex measures 2.3 cm. There is no right renal mass or cyst. There are no right renal calculi. There is no right hydronephrosis. DISTAL RIGHT URETER: There is non-visualization of the distal right ureter. There is no demonstrated right ureterovesical junction calculus. There is a visualized right ureteral jet. LEFT KIDNEY: Normal location of the left kidney, which is normal in size. The left kidney measures 11.8 cm x 5.7 cm x 6.4 cm. There is a normal cortex of the left kidney. The renal cortex measures 1.6 cm. There is no left renal mass or cyst. There are no left renal calculi. There is no left hydronephrosis. DISTAL LEFT URETER: There is non-visualization of the distal left ureter. There is no demonstrated left ureterovesical junction calculus. There is a visualized left ureteral jet. BLADDER: The distended urinary bladder has a volume of 270 ml. There is a normal wall thickness of the distended urinary bladder. There is no demonstrated mass within the urinary bladder. There are no demonstrated bladder calculi. IMPRESSION: Normal ultrasound of the kidneys and urinary bladder. Electronically Signed: Wild Bell MD at 11:21 EDT Tel [phone], Service support [phone], CC: Chasity Verma; Frances Alonso DO Prescription Eyeglass Maker: Signed Chasity Verma Work Phone: Start: 06-30-2015 End: 06-30-2015 Chest PA and Lateral Comments: See Note; NOTES: [facility] Imaging Services [address] [place] [address] Verdana 4d Chest PA and Lateral MR#: [id number] Acct: [id number] Name: DORIS ANDRADE Rep #: [id number] : 1965 M 49 From: Wild Bell MD PCP: Frances Alonso DO Status: REG CLI Study: Chest PA and Lateral Date of Exam: 06/30/15 Exam# [id number] Ordering Dr: Chasity Verma STUDY: X-RAY CHEST REASON FOR EXAM: Male, 49 years old. Right lower back pain. TECHNIQUE: PA and lateral views of the chest. COMPARISON: Comparison is made with prior study dated November 28, 2014. FINDINGS: The lungs are clear and expanded. There is no demonstrated pleural abnormality. Normal size heart. Normal mediastinum and jordon. Normal visualized pulmonary arteries. Normal visualized aortic arch and descending thoracic aorta. Normal visualized thoracic spine. Normal visualized ribs, clavicles, and shoulders. There is no demonstrated abnormality of the visualized soft tissue structures of the upper abdomen. IMPRESSION: Normal x-ray examination of the chest. Electronically Signed: Wild Bell MD at 11:01 EDT Tel [phone], Service support [phone], RAD/Chest PA and Lateral IMPRESSION: Normal x-ray examination of the chest. Electronically Signed: Wild Bell MD at 11:01 EDT Tel [phone], Service support [phone], CC: Chasity Verma; Frances Alonso DO Prescription Eyeglass Maker: Signed Chasity Verma Work Phone: Start: 06-30-2015 End: 06-30-2015 L/S Spine Min 4 Views Comments: See Note; NOTES: [facility] Imaging Services [address] [place] [address] Verdana 4d L/S Spine Min 4 Views MR#: [id number] Acct: [id number] Name: DORIS ANDRADE Rep #: [id number] : 1965 M 49 From: Wild Bell MD PCP: Frances Alonso DO Status: REG CLI Study: L/S Spine Min 4 Views Date of Exam: 06/30/15 Exam# [id number] Ordering Dr: Chasity Verma STUDY: X-RAY - LUMBAR SPINE REASON FOR EXAM: Male, 49 years old. Low back and right leg pain. TECHNIQUE: 5 view(s) of the lumbar spine were obtained including oblique views. COMPARISON: None FINDINGS: There is straightening of the normal lumbar lordosis. There is a minimal levoscoliosis of the lumbar spine. There is a normal alignment of the vertebrae. There is multilevel endplate spondylosis of the lumbar vertebrae. There is multi-level degenerative disc disease with multi-level disc space narrowing. The soft tissue structures are unremarkable. IMPRESSION: Degenerative changes of the spine, as detailed above. Electronically Signed: Wild Bell MD at 10:55 EDT Tel [phone], Service support [phone], RAD/L/S Spine Min 4 Views IMPRESSION: Degenerative changes of the spine, as detailed above. Electronically Signed: Wild Bell MD at 10:55 EDT Tel [phone], Service support [phone], CC: Chasity Verma; Frances Alonso DO Prescription Eyeglass Maker: Signed Chasity Verma Work Phone: Start: 01-29-2015 End: 01-29-2015 Spmtry w/vc expiratory becki w/wo mxml vol vntj _ Chasity Verma Work Phone: Comment on above: mild restriction Start: 11-28-2014 End: 11-28-2014 Chest PA and Lateral Comments: See Note; NOTES: [facility] Imaging Services [address] [place] [address] Radiology Report MR#: [id number] Acct: [id number] Name: DORIS ANDRADE Yola Rep #: [id number] : 1965 M 49 From: Haylee Montero MD PCP: Frances Alonso DO Status: REG CLI Study: Chest PA and Lateral Date of Exam: 11/28/14 Exam# [id number] Ordering Dr: Frances Alonso DO STUDY: X-RAY CHEST REASON FOR EXAM: Male, 49 years old. Chest pain for 2 days. History of stent placement. TECHNIQUE: PA and lateral views of the chest. COMPARISON: Prior portable chest exam of December 05, 2013 and prior PA and lateral chest of July 04, 2012. FINDINGS: The lungs are clear and expanded. There is no demonstrated pleural abnormality. Normal size heart. Normal mediastinum and jordon. Normal visualized pulmonary arteries. Mild elongation of the thoracic aorta. Normal visualized thoracic spine. Normal visualized ribs, clavicles, and shoulders. Status post cholecystectomy. IMPRESSION: No acute cardiopulmonary findings or changes. Electronically Signed: Haylee Montero MD at 17:28 EDT , Service support [phone], RAD/Chest PA and Lateral IMPRESSION: No acute cardiopulmonary findings or changes. Electronically Signed: Haylee Montero MD at 17:28 EDT , Service support [phone], CC: Frances Alonso DO Prescription Eyeglass Maker: Signed Frances Downey Phone: Start: 11-28-2014 End: 11-29-2014 Nuclear Stress Test - Treadmil Comments: See Note; NOTES: [facility] Imaging Services [address] [place] [address] STRESS TEST REPORT 11/28/14 0942 MR#: [id number] Acct: [id number] Name: DORIS ANDRADE Rep #: [id number] : 1965 49 From: Patricio Downing MD Primary Care: Frances Alonso DO Status: REG CLI Ordering Dr: Frances Alonso DO Service Date: 11/28/14 Order Date: 11/28/14 Sex: M C DATE OF SERVICE: 11/28/2014 EXERCISE TOLERANCE TEST: The patient exercised on a Foster protocol for 12 minutes completing stage 4 achieving a peak heart rate of 150 beats per minute (87% predicted maximum heart rate) and a peak blood pressure of 180/90 mmHg and a peak MET capacity of 13 METS. The baseline ECG demonstrated normal sinus rhythm. The peak exercise ECG demonstrated no obvious ECG changes. There was rare PAC/PVC during exercise. The functional capacity was considered excellent. The patient had no complaint of chest discomfort during exercise or recovery. The examination was discontinued secondary to leg discomfort. IMPRESSION: 1. Technically adequate (percent predicted maximum heart rate greater than 85%) exercise tolerance test. 2. Negative (adequate) ECG exercise tolerance test. 3. Rare PAC/PVC during exercise. 4. Nuclear images pending. MYOCARDIAL PERFUSION IMAGING STUDY: TECHNIQUE: The patient was injected with 13.3 mCi of Tc99m Cardiolite and subsequently rest SPECT Cardiolite nuclear imaging was obtained in the horizontal long, vertical long and short axes views. The patient exercised on a Foster protocol for 12 minutes completing stage 4 achieving a peak heart rate of 150 beats per minute (87% predicted maximum heart rate) and a peak blood pressure of 180/90 mmHg and a peak MET capacity of 13 METS. The patient was injected with 14.0 mCi of Tc99m Cardiolite and subsequently stress SPECT Cardiolite nuclear imaging was obtained in the horizontal long, vertical long and short axes views. A gated Cardiolite study at peak stress was obtained. INTERPRETATION: Rest SPECT Cardiolite nuclear imaging demonstrates areas of extracardiac/hepatic and gastrointestinal tracer uptake near the inferior segments. This is less prominent following stress. At rest, there is notation of an area of diminished tracer uptake in portions of the basal towards mid anterior segments. This is less prominent and/or normalized following stress. There is also notation at both rest and stress of an area of diminished to absence of tracer uptake in the distal inferior/inferoapical segments, which appear to be somewhat more prominent following stress as opposed to rest. There are similar type findings on the resting and stress polar map images. There is diminished end systolic thickening and brightening in the aforementioned distal inferior/inferoapical segments. The gated Cardiolite study suggests myocardial thickening and inward wall motion with a reported LVEF of 69%. The aforementioned changes may be compatible with an element of shifting soft tissue attenuation/artifact being more prominent at rest as opposed to stress with respect to both the basal to mid anterior segments as well as the distal inferior/inferoapical segments. However, an area of previous myocardial injury with mild periinfarct related myocardial ischemia involving portions of the distal inferior and inferoapical segments cannot be excluded. IMPRESSION: 1. Rest and stress SPECT Cardiolite nuclear imaging demonstrate myocardial perfusion changes potentially compatible with the effects of shifting soft tissue attenuation/artifact being more prominent at rest as opposed to stress. However, an area of previous myocardial injury/infarction involving portions of the distal inferior/inferoapical segments with mild periinfarct related myocardial ischemia cannot be excluded. 2. The gated Cardiolite study reports an LVEF of 69%. Patricio Downing MD T: [facility] JOB: [id number] 11/29/14 1548 <Electronically signed by Patricio Downing MD> Date Patricio Downing MD CC: Frances Alonso DO Date Dictated: 11/28/14941 Date Transcribed: 11/28/14941 Prescription Eyeglass Maker: Signed AXON [employer] Phone: Start: 11-25-2014 End: 11-25-2014 Ecg routine ecg w/least 12 lds w/i&r [MEASUREMENTS ANALYSIS] Date of Test: 11/25/2014 12:17:00; Heart Rate: 63; RI Interval: 158; QRS: 104; QT Interval: 396; Corrected QT Interval (QTc): 401; P Wave Ball [place]: -1; QRS Wave [place] Ground: 27; T Wave [place]: 37; Blood Pressure: 122/84 [ECG DIAGNOSTIC STATEMENTS] Date of Test: 11/25/2014 12:17:00; Summary: Sinus Rhythm -With rate variation cv = 10.WITHIN NORMAL LIMITS [employer]ON [employer] Phone: Comment on above: ekg showed normal sinus rhythym, normal axis, no acute st/t wave changes Start: 11-25-2014 End: 11-25-2014 Spmtry w/vc expiratory becki w/wo mxml vol vntj _ AXON [employer] Phone: Comment on above: good effort and curve normal Start: 12-05-2013 End: 12-05-2013 Vascular Test/LEAS/UEAS Comments: See Note; NOTES: [facility] Cardiovascular Services [address] [place] [address] Upper Extremity Arterial Study 11/28/13 1131 MR#: [id number] Acct: [id number] Name: DORIS ANDRADE Rep #: [id number] : 1965 48 From: Angel Barajas MD Attending Dr: Frances Alonso DO Status: REG CLI Ordering Dr: Frances Alonso DO Date: 11/28/13 Location: [facility] Sex: M C Admitted: DATE OF SCAN: November 23, 2013 ORDERING PHYSICIAN: Dr. Alonso. INTERPRETING PHYSICIAN: Dr. Barajas. 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 SCAN: Bilateral upper extremity PVRs. INTERPRETATION: RIGHT UPPER EXTREMITY PULSE VOLUME RECORDING: Normal pulsatile flow noted throughout the upper arm down into the forearm, wrists, and into the digits. There are peaked waves at the digits. Has a wrist -brachial index of 1.27, finger-brachial index of 1.09, with an adequate waveform. LEFT UPPER EXTREMITY PULSE VOLUME RECORDING: Normal pulsatile flow noted throughout from the upper arm, down into the forearm , wrists, and into the digits. Does have some peaked waveform to the digits, but has a maintained wrist-brachial index of 1.3 and a finger-brachial index of 1.01. IMPRESSION: Bilateral upper extremities with no evidence of significant arterial occlusive disease with right wrist-brachial index of 1.27 and left 1.30 and the right finger-brachial index of 1.09, and the left 1.01. 12/05/13 1109 <Electronically signed by Angel Barajas MD> Date Angel Barajas MD CC: Frances Alonso DO Date Dictated: 11/28/13 1131 Date Transcribed: 11/28/13 0557 Prescription Eyeglass Maker: ZAMORA Signed Chasity Verma Start: 03-07-2013 End: 03-07-2013 Abdomen/Pelvis without Cont Comments: See Note; NOTES: [facility] Imaging Services [address] [place] [id number] CAT Scan Report MR#: [id number] Acct: [id number] Name: DORIS ANDRADE Rep #: [id number] : 1965 M 47 From: Ranulfo Miramontes MD PCP: Frances Alonso DO Status: REG CLI Study: Abdomen/Pelvis without Cont Date of Exam: 03/07/13 Exam# [id number] Ordering Dr: Chasity Verma STUDY: CT ABDOMEN AND PELVIS WITHOUT CONTRAST REASON FOR EXAM: Male, 47 years old. Right flank pain RADIATION DOSAGE (If Supplied By Facility): CTDIvol = ( 16.58 ) mGy, DLP = ( 886.08 ) mGycm TECHNIQUE: Transaxial images were obtained from the dome of the diaphragm to the symphysis pubis without oral contrast, and without intravenous contrast. This examination is limited for the evaluation of solid organs and vascular structures due to the lack of intravenous contrast. MPR performed COMPARISON: None. FINDINGS: The visualized lung bases are unremarkable. The visualized portions of the heart are within normal limits. Normal liver. There are surgical clips in the gallbladder fossa consistent with a prior cholecystectomy. Normal spleen. Normal pancreas. Normal bilateral adrenal glands. No obstructive uropathy. There is a nonobstructing calcification in the midportion of the left kidney. There is nonspecific induration around the proximal left ureter but there is no hydroureter or stone noted. Normal visualized stomach. Normal small intestine. Normal colon. The appendix is visualized and appears normal. Appendix best seen on coronal recon image 60 Normal abdominal aorta. Normal inferior vena cava. Normal retroperitoneum. The bladder is incompletely distended and cannot be evaluated. Normal abdominal wall. Normal osseous structures. IMPRESSION: No obstructive uropathy. There is nonobstructing left nephrolithiasis and nonspecific induration around the proximal left ureter. Perhaps there has been a recent passage of stone. No CT evidence of acute inflammatory process, the appendix is visualized and normal Electronically Signed: Pietro Miramontes M.D. at 13:04 EST , Service support [phone], CC: Chasity Verma; Frances Alonso DO Prescription Eyeglass Maker: Signed Chasity Verma Work Phone: Cholecystectomy Freddy Luis Comment on above: 08/17 Cholecystectomy Freddy Smith Comment on above: 08/17 Cholecystectomy Freddy Smith Comment on above: 08/17 Cholecystectomy Barbara Lockl ear Comment on above: 08/17 Cholecystectomy FELIPEDARIA Murguia Comment on above: 08/17 Cholecystectomy Freddy Smith Comment on above: 08/17 Heart Cath 2014 Freddy Smith Heart Cath 2014 Freddy Smith Heart Cath 2014 Freddy Smith Heart Cath 2014 Barbara Remyl ear Heart Cath 2014 FELIPE virgen Heart Cath 2014 Freddy Smith History of coronary artery bypass grafting S/P CABG x 1 Ada Jimenez BARREL TESTER AND DRAINER.AIRCRAFT AVIONICS TECHNICIAN Work Phone: History of coronary artery bypass grafting S/P CABG (coronary artery bypass graft) Watch Repairer Work Phone: History of coronary artery bypass grafting S/P CABG (coronary artery bypass graft) Card 2 Work Phone: History of coronary artery bypass grafting S/P CABG (coronary artery bypass graft) Card 2 Work Phone: History of coronary artery bypass grafting S/P CABG x 1 Ada Jimenez BARREL TESTER AND DRAINER.AIRCRAFT AVIONICS TECHNICIAN Work Phone: History of coronary artery bypass grafting S/P CABG (coronary artery bypass graft) Card 2 Work Phone: History of coronary artery bypass grafting S/P CABG (coronary artery bypass graft) Card 2 Work Phone: History of coronary artery bypass grafting S/P CABG (coronary artery bypass graft) Samira hCang BARREL TESTER AND DRAINER.AIRCRAFT AVIONICS TECHNICIAN Work Phone: History of coronary artery bypass grafting S/P CABG (coronary artery bypass graft) Card 2 Work Phone: History of coronary artery bypass grafting S/P CABG (coronary artery bypass graft) Card 2 Work Phone: History of coronary artery bypass grafting S/P CABG (coronary artery bypass graft) Card 2 Work Phone: History of coronary artery bypass grafting S/P CABG (coronary artery bypass graft) Card 2 Work Phone: History of coronary artery bypass grafting S/P CABG (coronary artery bypass graft) Card 2 Work Phone: History of coronary artery bypass grafting S/P CABG (coronary artery bypass graft) Card 2 Work Phone: History of coronary artery bypass grafting S/P CABG (coronary artery bypass graft) Card 2 Work Phone: History of coronary artery bypass grafting S/P CABG (coronary artery bypass graft) Card 2 Work Phone: History of coronary artery bypass grafting S/P CABG (coronary artery bypass graft) Card 2 Work Phone: History of coronary artery bypass grafting S/P CABG (coronary artery bypass graft) Card 2 Work Phone: Laboratory test resu lt abnormal Freddy Dodge LPN Freddy Dodge LP N Plan of Treatment Date Care Activity Detail Author Start: 01-18-2027 Lipid 1996 panel - Serum or Plasma Lipid Screening [facility] Start: 01-18-2027 Lipid panel Lipid Screening [facility] Start: 01-18-2027 LIPID SCREEN LIPID SCREEN [facility] Start: 11-04-2026 LIPID SCREEN LIPID SCREEN [facility] Start: 10-30-2026 LIPID SCREEN LIPID SCREEN [facility] Start: 08-24-2026 LIPID SCREEN LIPID SCREEN [facility] Start: 06-09-2026 LIPID SCREEN LIPID SCREEN [facility] Start: 11-23-2025 DIABETES SCREEN DIABETES SCREEN [facility] Start: 11-23-2025 Diabetes Screening Diabetes Screening [facility] Start: 04-23-2025 BP Controlled (<130/80) BP Controlled (<130/80) [facility] Start: 01-18-2025 DIABETES SCREEN DIABETES SCREEN [facility] Start: 12-17-2024 End: 12-17-2024 Patient encounter procedure 12/17/2024 8:20 AM EDT Office Visit Cardiology [address] [place] [address] Robson Beck MD [address] [id number] 6 month follow up Cardiology Comment on above: 6 month follow up Start: 11-12-2024 DIABETES SCREEN DIABETES SCREEN [facility] Start: 10-30-2024 DIABETES SCREEN DIABETES SCREEN [facility] Start: 09-04-2024 DIABETES SCREEN DIABETES SCREEN [facility] Start: 08-28-2024 DIABETES SCREEN DIABETES SCREEN [facility] Start: 08-27-2024 DIABETES SCREEN DIABETES SCREEN [facility] Start: 06-09-2024 DIABETES SCREEN DIABETES SCREEN [facility] Start: 05-08-2024 Patient referral [facility] Work Phone: Start: 04-23-2024 End: 04-23-2024 Patient encounter procedure 04/23/2024 10:00 AM EST Office Visit Cardiology [address] [place] [id number] Robson Beck MD [address] [facility] [facility] [address] [place] [address] 6 month follow Cardiology Comment on above: 6 month follow Start: 12-11-2023 Covid-19 Vaccine ( season) Covid-19 Vaccine ( season) [facility] Start: 12-11-2023 Covid-19 Vaccine ( season) Covid-19 Vaccine ( season) [facility] Start: 12-11-2023 Influenza vaccination Influenza Vaccine (#1) [facility] Start: 07-20-2023 BP CONTROLLED (<130/80) BP CONTROLLED (<130/80) [facility] Start: 02-21-2023 End: 02-21-2023 Patient encounter procedure 02/21/2023 7:30 AM EST Appointment [facility] [address] [place] [id number] Billy Barros, BARREL TESTER AND DRAINER - AIRCRAFT AVIONICS TECHNICIAN [address] [place] [address] [facility] Start: 02-10-2023 End: 02-11-2024 MR Shoulder - left WO contrast MR shoulder left wo IV contrast Imaging Routine Strain of tendon of left rotator cuff, initial encounter Expected: 02/10/2023, Expires: 02/11/2024 [facility] Work Phone: Comment on above: Expected: 02/10/2023, Expires: Start: 01-18-2023 Hepatitis B surface antibody level LDL CHOLESTEROL [facility] Start: 12-10-2022 Covid-19 Vaccine () Covid-19 Vaccine () [facility] Start: 12-10-2022 Influenza vaccination [facility] Start: 11-23-2022 BP CONTROLLED (<130/80) BP CONTROLLED (<130/80) [facility] Start: 11-04-2022 Hepatitis B surface antibody level LDL CHOLESTEROL [facility] Start: 10-30-2022 Hepatitis B surface antibody level LDL CHOLESTEROL [facility] Start: 10-28-2022 BP CONTROLLED (<130/80) BP CONTROLLED (<130/80) [facility] Start: 10-13-2022 BP CONTROLLED (<130/80) BP CONTROLLED (<130/80) [facility] Start: 10-05-2022 Adult depression screening assessment DEPRESSION SCREENING [facility] Start: 09-17-2022 BP CONTROLLED (<130/80) BP CONTROLLED (<130/80) [facility] Start: 09-16-2022 BP CONTROLLED (<130/80) BP CONTROLLED (<130/80) [facility] Start: 09-14-2022 BP CONTROLLED (<130/80) BP CONTROLLED (<130/80) [facility] Start: 08-24-2022 Hepatitis B surface antibody level LDL CHOLESTEROL [facility] Start: 07-16-2022 BP CONTROLLED (<130/80) BP CONTROLLED (<130/80) [facility] Start: 06-09-2022 Hepatitis B surface antibody level LDL CHOLESTEROL [facility] Start: 04-11-2022 DEPRESSION ASSESSMENT DEPRESSION ASSESSMENT [facility] Start: 12-10-2021 Influenza vaccination [facility] Start: 11-03-2021 End: 01-03-2022 Lipid 1996 panel - Serum or Plasma LIPID PANEL BASIC Lab Routine Pure hypercholesterolemia Expected: 11/03/2021, Expires: 01/03/2022 [facility] Work Phone: Comment on above: Expected: 11/03/2021, Expires: 2 Start: 10-21-2021 End: 12-21-2021 CBC panel - Blood by Automated count CBC Lab Routine Mixed hyperlipidemia Expected: 10/21/2021, Expires: 12/21/2021 [facility] Work Phone: Comment on above: Expected: 10/21/2021, Expires: 2 Start: 10-21-2021 End: 12-21-2021 Comprehensive metabolic 2000 panel - Serum or Plasma COMP METABOLIC PANEL Lab Routine Mixed hyperlipidemia Expected: 10/21/2021, Expires: 12/21/2021 [facility] Work Phone: Comment on above: Expected: 10/21/2021, Expires: 2 Start: 10-21-2021 End: 12-21-2021 Lipid 1996 panel - Serum or Plasma LIPID PANEL BASIC Lab Routine Mixed hyperlipidemia Expected: 10/21/2021, Expires: 12/21/2021 [facility] Work Phone: Comment on above: Expected: 10/21/2021, Expires: 2 Start: 2021 PROSTATE CANCER SCREENING DISCUSSION PROSTATE CANCER SCREENING DISCUSSION [facility] Start: 2021 Prostate specific antigen measurement Prostate Cancer Screening Discussion [facility] Start: 10-01-2021 End: 12-01-2021 Antithrombin actual/normal in Platelet poor plasma by Chromogenic method ANTITHROMBIN ACTIVITY Lab Routine Coronary artery disease involving [place] coronary artery of [place] heart without angina pectoris Expected: 10/01/2021, Expires: 12/01/2021 [facility] Work Phone: Comment on above: Expected: 10/01/2021, Expires: 2 Start: 10-01-2021 End: 12-01-2021 Homocysteine [Moles/volume] in Serum or Plasma HOMOCYSTEINE Lab Routine Coronary artery disease involving [place] coronary artery of [place] heart without angina pectoris Expected: 10/01/2021, Expires: 12/01/2021 [facility] Work Phone: Comment on above: Expected: 10/01/2021, Expires: 2 Start: 10-01-2021 End: 12-01-2021 PROTEIN C FUNCT PROTEIN C FUNCT Lab Routine Coronary artery disease involving [place] coronary artery of [place] heart without angina pectoris Expected: 10/01/2021, Expires: 12/01/2021 [facility] Work Phone: Comment on above: Expected: 10/01/2021, Expires: 2 Start: 10-01-2021 End: 12-01-2021 PROTEIN S CLOTTABLE PROTEIN S CLOTTABLE Lab Routine Coronary artery disease involving [place] coronary artery of [place] heart without angina pectoris Expected: 10/01/2021, Expires: 12/01/2021 [facility] Work Phone: Comment on above: Expected: 10/01/2021, Expires: 2 Start: 07-16-2021 End: 09-15-2021 LIPID PANEL BASIC LIPID PANEL BASIC Lab Routine Coronary artery disease involving [place] coronary artery of [place] heart without angina pectoris Expected: 07/16/2021, Expires: 09/15/2021 [facility] Work Phone: Comment on above: Expected: 07/16/2021, Expires: 2 Start: 06-25-2021 Adult depression screening assessment DEPRESSION SCREENING [facility] Start: 06-25-2021 ANNUAL PCP TEAM CHRONIC DISEASE VISIT ANNUAL PCP TEAM CHRONIC DISEASE VISIT [facility] Start: 04-11-2021 DEPRESSION ASSESSMENT DEPRESSION ASSESSMENT [facility] Start: 01-22-2021 COVID-19 VACCINE (3 - Booster for Moderna series) COVID-19 VACCINE (3 - Booster for Moderna series) [facility] Start: 10-17-2020 COVID-19 VACCINE (3 - Booster for Moderna series) COVID-19 VACCINE (3 - Booster for Moderna series) [facility] Start: 10-17-2020 COVID-19 VACCINE (3 - Moderna series) COVID-19 VACCINE (3 - Moderna series) [facility] Start: 08-16-2019 Lipid panel [facility] Work Phone: Start: 08-16-2019 Blood count complete auto&auto difrntl wbc [facility] Work Phone: Start: 08-16-2019 Comprehensive metabolic panel [facility] Work Phone: Start: 08-07-2019 Procedure Education [facility] Work Phone: Start: 08-07-2019 Provider Instructions for Treatment [facility] Work Phone: Start: 06-18-2019 Procedure Education [facility] Work Phone: Start: 06-18-2019 Bacteria identified Respiratory culture Nom (Sput) Sputum Culture (13665) [facility] Work Phone: Start: 06-18-2019 Cul bact xcpt urine blood/stool aerobic isol [facility]; [facility] Work Phone: Start: 05-18-2019 Procedure Education [facility] Work Phone: Start: 05-18-2019 Provider Instructions for Treatment [facility] Work Phone: Start: 05-15-2019 Procedure Education [facility] Work Phone: Start: 05-15-2019 Provider Instructions for Treatment [facility] Work Phone: Start: 09-11-2018 Lipid panel [facility] Work Phone: Start: 08-04-2018 Procedure Education [facility] Work Phone: Start: 08-04-2018 Provider Instructions for Treatment [facility] Work Phone: Start: 07-10-2018 Patient Education [facility] Work Phone: Start: 07-10-2018 Procedure Education [facility] Work Phone: Start: 07-10-2018 Provider Instructions for Treatment [facility] Work Phone: Start: 04-25-2018 Procedure Education [facility] Work Phone: Start: 04-25-2018 Provider Instructions for Treatment [facility] Work Phone: Start: 04-10-2018 Urine albumin quantitative MICROALBUMIN: CREATININE RATIO (59109) AND (82436) [facility] Work Phone: Start: 04-10-2018 Blood count manual cell count each CBC with auto diff (91314) [facility] Work Phone: Start: 04-10-2018 Comprehensive metabolic panel Metabolic Panel, Comprehensive (86485) [facility] Work Phone: Start: 04-10-2018 Lipid panel Lipid Panel (96419) [facility] Work Phone: Start: 04-10-2018 Thyrotropin Qn TSH (THYROID STIMULATING HORMONE) (84955) [facility] Work Phone: Start: 01-02-2018 Patient Education [facility] Work Phone: Start: 01-02-2018 Procedure Education [facility] Work Phone: Start: 01-02-2018 Provider Instructions for Treatment [facility] Work Phone: Start: 12-12-2017 Comprehensive metabolic panel Metabolic Panel, Comprehensive (47834) [facility] Work Phone: Start: 12-12-2017 Lipid panel Lipid Panel (13925) [facility] Work Phone: Start: 12-12-2017 Thyrotropin Qn TSH (THYROID STIMULATING HORMONE) (10881) [facility] Work Phone: Start: 11-23-2017 Patient Education [facility] Work Phone: Start: 11-23-2017 Procedure Education [facility] Work Phone: Start: 11-23-2017 Provider Instructions for Treatment [facility] Work Phone: Start: 09-06-2017 Procedure Education [facility] Work Phone: Start: 09-06-2017 Provider Instructions for Treatment [facility] Work Phone: Start: 06-07-2017 Procedure Education [facility] Work Phone: Start: 06-07-2017 Provider Instructions for Treatment [facility] Work Phone: Start: 06-07-2017 Cul bact xcpt urine blood/stool aerobic isol [facility] Work Phone: Start: 12-21-2016 Patient Education [facility] Work Phone: Start: 12-21-2016 Procedure Education [facility] Work Phone: Start: 12-21-2016 Provider Instructions for Treatment [facility] Work Phone: Start: 11-19-2016 Procedure Education [facility] Work Phone: Start: 11-19-2016 Provider Instructions for Treatment [facility] Work Phone: Start: 11-03-2016 Procedure Education [facility] Work Phone: Start: 11-03-2016 Provider Instructions for Treatment [facility] Work Phone: Start: 2016 Pneumococcal Vaccine: 50+ (1 of 1 - PCV) Pneumococcal Vaccine: 50+ (1 of 1 - PCV) [facility] Start: 2016 SHINGRIX VACCINE (1 of 2) SHINGRIX VACCINE (1 of 2) [facility] Start: 2016 Zoster Vaccines (1 of 2) Zoster Vaccines (1 of 2) [facility] Start: 07-26-2016 Assay of thyroid stimulating hormone tsh [facility]; [facility] Work Phone: Start: 07-26-2016 Thyrotropin Qn TSH (02424) [facility] Work Phone: Comment on above: week August 30 Start: 07-26-2016 Procedure Education [facility] Work Phone: Start: 07-26-2016 Provider Instructions for Treatment [facility] Work Phone: Start: 07-09-2016 Provider Instructions for Treatment [facility] Work Phone: Start: 07-02-2016 Assay of thyroid stimulating hormone tsh [facility]; [facility] Work Phone: Start: 07-02-2016 Thyrotropin Qn TSH (THYROID STIMULATING HORMONE) (36414) [facility] Work Phone: Start: 07-02-2016 CBC, PLATELETS & MANUAL DIFF (97376) [facility] Work Phone: Start: 07-02-2016 Comprehensive metabolic panel [facility] Work Phone: Start: 06-29-2016 Assay of thyroid stimulating hormone tsh [facility]; [facility] Work Phone: Start: 06-29-2016 Thyrotropin Qn TSH (26735) [facility] Work Phone: Start: 06-01-2016 Procedure Education [facility] Work Phone: Start: 06-01-2016 Provider Instructions for Treatment [facility] Work Phone: Start: 04-28-2016 Procedure Education [facility] Work Phone: Start: 04-01-2016 Procedure Education [facility] Work Phone: Start: 04-01-2016 Provider Instructions for Treatment [facility] Work Phone: Start: 12-10-2015 Procedure Education [facility] Work Phone: Start: 12-09-2015 Procedure Education [facility] Work Phone: Start: 12-09-2015 Provider Instructions for Treatment [facility] Work Phone: Start: 12-09-2015 Assay of thyroid stimulating hormone tsh [facility]; [facility] Work Phone: Start: 12-09-2015 Thyrotropin Qn TSH (THYROID STIMULATING HORMONE) (16375) [facility] Work Phone: Start: 12-09-2015 Assay of lipase [facility] Work Phone: Start: 12-09-2015 Amylase enzyme act/vol AMYLASE (22404) [facility] Work Phone: Start: 12-09-2015 Assay of amylase [facility]; [facility] Work Phone: Start: 12-09-2015 Assay of troponin quantitative [facility]; [facility] Work Phone: Start: 12-09-2015 Troponin I.cardiac mass conc Troponin I (65640) [facility] Work Phone: Start: 12-09-2015 Comprehensive metabolic panel [facility] Work Phone: Start: 12-09-2015 Blood count complete auto&auto difrntl wbc [facility] Work Phone: Start: 11-12-2015 Procedure Education [facility] Work Phone: Start: 11-12-2015 Provider Instructions for Treatment [facility] Work Phone: Start: 11-12-2015 Comprehensive metabolic panel [facility] Work Phone: Start: 09-09-2015 Provider Instructions for Treatment [facility] Work Phone: Start: 07-30-2015 Iaadiadoo streptococcus group a [facility]; [facility] Work Phone: Start: 07-30-2015 S. pyogenes Ag IA Ql (Unsp spec) Rapid Strep Test, Office (75723) [facility] Work Phone: Start: 07-14-2015 Provider Instructions for Treatment [facility] Work Phone: Start: 06-30-2015 Provider Instructions for Treatment [facility] Work Phone: Start: 06-16-2015 Procedure Education [facility] Work Phone: Start: 06-16-2015 Provider Instructions for Treatment [facility] Work Phone: Start: 06-16-2015 Assay of prostate specific antigen total [facility] Work Phone: Start: 06-16-2015 Protein mass conc PSA (PROSTATE SPECIFIC ANTIGEN) (V76.44) [facility] Work Phone: Start: 06-16-2015 Creatine kinase total [facility] Work Phone: Start: 06-16-2015 Blood count complete auto&auto difrntl wbc [facility] Work Phone: Start: 06-16-2015 Comprehensive metabolic panel [facility] Work Phone: Start: 06-16-2015 Lipid panel [facility] Work Phone: Start: 06-16-2015 Alpha-fetoprotein serum [facility] Work Phone: Start: 04-29-2015 Provider Instructions for Treatment [facility] Work Phone: Start: 01-29-2015 Provider Instructions for Treatment [facility] Work Phone: Start: 01-21-2015 Provider Instructions for Treatment [facility] Work Phone: Start: 01-21-2015 Iaadiadoo influenza [facility] Work Phone: Start: 11-25-2014 Procedure Education [facility] Work Phone: Start: 07-26-2014 Procedure Education [facility] Work Phone: Start: 07-26-2014 Blood count complete auto&auto difrntl wbc [facility] Work Phone: Start: 07-26-2014 Lipid panel [facility] Work Phone: Start: 07-26-2014 Comprehensive metabolic panel [facility] Work Phone: Start: 05-29-2014 Procedure Education [facility] Work Phone: Start: 03-22-2014 Provider Instructions for Treatment [facility] Work Phone: Start: 11-30-2013 Procedure Education [facility] Work Phone: Start: 11-19-2013 Molecule gel electrophor [facility] Work Phone: Start: 11-19-2013 Clotting factor ii prothrombin specific [facility] Work Phone: Start: 11-19-2013 Clotting inhibitors antithrombin iii activity [facility] Work Phone: Start: 11-19-2013 Clotting inhibitrs antithrombn iii antigen assay [facility] Work Phone: Start: 11-19-2013 Clotting inhibitors protein s total [facility]; [facility] Work Phone: Start: 11-19-2013 Clotting inhibitors protein c antigen [facility]; [facility] Work Phone: Start: 11-19-2013 Protein mass conc [facility] Work Phone: Start: 11-19-2013 Thromboplastin time prtl substit plasma frctj ea [facility] Work Phone: Start: 11-19-2013 Maurisio viper venom time diluted [facility] Work Phone: Start: 11-19-2013 aPTT Coag time (Bld) PTT (Activated Partial Thromboplastin Time) (79562) [facility] Work Phone: Start: 11-19-2013 Thromboplastin time partial plasma/whole blood [facility]; [facility] Work Phone: Start: 11-19-2013 Prothrombin time [facility]; [facility] Work Phone: Start: 11-19-2013 Prothrombin time (PT) Coag time (PPP) PT (Prothrobim Time) (86090) [facility] Work Phone: Start: 11-19-2013 Lipid panel [facility] Work Phone: Start: 11-19-2013 Sedimentation rate rbc non-automated [facility] Work Phone: Start: 11-19-2013 C-reactive protein [facility]; [facility] Work Phone: Start: 11-19-2013 CRP mass conc C-REACTIVE PROTEIN (99252) [facility] Work Phone: Start: 11-19-2013 Comprehensive metabolic panel [facility] Work Phone: Start: 11-19-2013 Rheumatoid factor quantitative [facility] Work Phone: Start: 11-19-2013 Blood count manual cell count each [facility] Work Phone: Start: 11-19-2013 Antinuclear antibodies zuleika [facility]; [facility] Work Phone: Start: 11-19-2013 Nuclear Ab IF titer (S) ZULEIKA (ANTINUCLEAR ANTIBODY) (20684) [facility] Work Phone: Start: 11-19-2013 Procedure Education [facility] Work Phone: Start: 08-13-2013 Provider Instructions for Treatment [facility] [facility] Work Phone: Start: 03-07-2013 Provider Instructions for Treatment [facility] Work Phone: Start: 01-29-2013 Provider Instructions for Treatment [facility] Work Phone: Start: 11-13-2012 Urine albumin quantitative [facility] Work Phone: Start: 11-13-2012 Comprehensive metabolic panel [facility] Work Phone: Start: 11-13-2012 Lipid panel [facility] Work Phone: Start: 11-13-2012 Alpha-fetoprotein serum [facility] Work Phone: Start: 11-13-2012 aPTT Coag time (Bld) PTT (Activated Partial Thromboplastin Time) (51779) [facility] Work Phone: Start: 11-13-2012 Thromboplastin time partial plasma/whole blood [facility]; [facility] Work Phone: Start: 11-13-2012 Prothrombin time [facility]; [facility] Work Phone: Start: 11-13-2012 Prothrombin time (PT) Coag time (PPP) PT (Prothrobim Time) (57882) [facility] Work Phone: Start: 11-13-2012 Provider Instructions for Treatment [facility] Work Phone: Start: 05-25-2012 Patient Education [facility] Work Phone: Start: 05-25-2012 Urnls dip stick/tablet reagent auto microscopy [facility] Work Phone: Start: 05-25-2012 Blood count manual cell count each [facility] Work Phone: Start: 05-25-2012 Lipid panel [facility] Work Phone: Start: 05-25-2012 Comprehensive metabolic panel [facility] Work Phone: Start: 03-28-2012 Provider Instructions for Treatment [facility] Work Phone: Start: 01-19-2012 Urnls dip stick/tablet reagent auto microscopy [facility] Work Phone: Start: 01-19-2012 Lipid panel [facility] Work Phone: Start: 01-19-2012 Blood count manual cell count each [facility] Work Phone: Start: 01-19-2012 Comprehensive metabolic panel [facility] Work Phone: Start: 01-19-2012 Hepatic function panel [facility] Work Phone: Comment on above: 3 weeks Start: 10-19-2011 Alpha-fetoprotein serum [facility] Work Phone: Start: 10-19-2011 aPTT Coag time (Bld) PTT (Activated Partial Thromboplastin Time) (54111) [facility] Work Phone: Start: 10-19-2011 Thromboplastin time partial plasma/whole blood [facility]; [facility] Work Phone: Start: 10-19-2011 Prothrombin time [facility]; [facility] Work Phone: Start: 10-19-2011 Prothrombin time (PT) Coag time (PPP) PT (Prothrobim Time) (85104) [facility] Work Phone: Start: 10-19-2011 Comprehensive metabolic panel [facility] Work Phone: Start: 10-19-2011 Lipid panel [facility] Work Phone: Start: 10-15-2011 COLOGUARD (FIT-DNA) COLOGUARD (FIT-DNA) [facility] Start: 10-15-2011 Colonoscopy COLONOSCOPY [facility] Start: 10-15-2011 COLORECTAL CANCER SCREENING COLORECTAL CANCER SCREENING [facility] Start: 10-15-[address] COLONOGRAPHY [facility] Start: 10-15-2011 FECAL OCCULT BLOOD FECAL OCCULT BLOOD [facility] Start: 10-15-2011 Screening for malignant neoplasm of colon [facility] Start: 10-15-2011 SIGMOIDOSCOPY SIGMOIDOSCOPY [facility] Start: 04-23-2011 Assay of prostate specific antigen total [facility] Work Phone: Start: 04-23-2011 Protein mass conc PSA (PROSTATE SPECIFIC ANTIGEN) (V76.44) [facility] Work Phone: Start: 04-23-2011 Urnls dip stick/tablet reagent auto microscopy [facility] Work Phone: Start: 04-23-2011 Blood count manual cell count each [facility] Work Phone: Start: 04-23-2011 Comprehensive metabolic panel [facility] Work Phone: Start: 04-23-2011 Lipid panel [facility] Work Phone: Start: 12-23-2010 Comprehensive metabolic panel [facility] Work Phone: Start: 12-23-2010 Lipid panel [facility] Work Phone: Start: 12-01-2010 Lipid panel [facility] Work Phone: Start: 12-01-2010 Comprehensive metabolic panel [facility] Work Phone: Start: 07-20-2010 Provider Instructions for Treatment [facility] Work Phone: Start: 05-11-2010 Hepatic function panel [facility] Work Phone: Start: 05-04-2010 Provider Instructions for Treatment [facility] Work Phone: Start: 03-25-2010 Provider Instructions for Treatment [facility] Work Phone: Start: 03-25-2010 Hepatic function panel [facility] Work Phone: Start: 03-25-2010 Lipid panel [facility] Work Phone: Start: 01-02-2010 Provider Instructions for Treatment [facility] Work Phone: Start: 01-02-2010 Assay of prostate specific antigen total [facility] Work Phone: Start: 01-02-2010 Protein mass conc PSA (PROSTATE SPECIFIC ANTIGEN) (V76.44) [facility] Work Phone: Start: 01-02-2010 Urnls dip stick/tablet reagent auto microscopy [facility] Work Phone: Start: 01-02-2010 Blood count manual cell count each [facility] Work Phone: Start: 01-02-2010 Comprehensive metabolic panel [facility] Work Phone: Start: 01-02-2010 Lipid panel [facility] Work Phone: Start: 11-24-2009 Provider Instructions for Treatment [facility] Work Phone: Start: 11-24-2009 Skin test tuberculosis intradermal [facility] Work Phone: Start: 06-24-2009 Hepatic function panel [facility] Work Phone: Start: 06-24-2009 Lipid panel [facility] Work Phone: Start: 04-07-2009 Provider Instructions for Treatment [facility] Work Phone: Start: 04-07-2009 Comprehensive metabolic panel [facility] Work Phone: Start: 04-07-2009 Lipid panel [facility] Work Phone: Start: 01-17-2009 Patient Education [facility] Work Phone: Start: 01-17-2009 Provider Instructions for Treatment [facility] Work Phone: Start: 01-17-2009 Cul bact xcpt urine blood/stool aerobic isol [facility] Work Phone: Start: 05-31-2008 Hepatic function panel [facility] Work Phone: Start: 05-31-2008 Lipid panel [facility] Work Phone: Start: 03-20-2008 Provider Instructions for Treatment [facility] Work Phone: Start: 03-20-2008 Comprehensive metabolic panel [facility] Work Phone: Start: 03-20-2008 Lipid panel [facility] Work Phone: Start: 07-04-2007 Urnls dip stick/tablet rgnt auto w/o microscopy [facility] Work Phone: Start: 07-04-2007 Assay of thyroid stimulating hormone tsh [facility]; [facility] Work Phone: Start: 07-04-2007 Thyrotropin Qn TSH (43037) [facility] Work Phone: Start: 07-04-2007 Blood count manual cell count each [facility] Work Phone: Start: 07-04-2007 Comprehensive metabolic panel [facility] Work Phone: Start: 07-04-2007 Hepatic function panel [facility] Work Phone: Start: 07-04-2007 Lipid panel [facility] Work Phone: Start: 03-24-2007 Assay of thyroid stimulating hormone tsh [facility]; [facility] Work Phone: Start: 03-24-2007 Thyrotropin Qn TSH (31830) [facility] Work Phone: Start: 03-24-2007 Comprehensive metabolic panel [facility] Work Phone: Start: 03-24-2007 Blood count manual cell count each [facility] Work Phone: Start: 03-24-2007 Lipid panel [facility] Work Phone: Start: 03-24-2007 Hepatic function panel [facility] Work Phone: Start: 11-28-2006 Lipid panel [facility] Work Phone: Start: 11-28-2006 Urnls dip stick/tablet rgnt auto w/o microscopy [facility] Work Phone: Start: 11-28-2006 Comprehensive metabolic panel [facility] Work Phone: Start: 11-28-2006 Blood count manual cell count each [facility] Work Phone: Start: 06-03-2006 Provider Instructions for Treatment [facility] Work Phone: Start: 06-03-2006 Comprehensive metabolic panel [facility] Work Phone: Start: 06-03-2006 Hepatic function panel [facility] Work Phone: Start: 06-03-2006 Lipid panel [facility] Work Phone: Start: 01-12-2006 Glucose mass conc GLUCOSE, PP/2 HOUR (15670) [facility] Work Phone: Start: 01-12-2006 Glucose quantitative blood xcpt reagent strip [facility]; [facility] Work Phone: Start: 1985 DTaP/Tdap/Td Vaccines (1 - Tdap) DTaP/Tdap/Td Vaccines (1 - Tdap) [facility] Start: 1985 Hepatitis A Vaccines (1 of 2 - Risk 2-dose series) Hepatitis A Vaccines (1 of 2 - Risk 2-dose series) [facility] Start: 1985 Hepatitis B Vaccine (1 of 3 - 19+ 3-dose series) Hepatitis B Vaccine (1 of 3 - 19+ 3-dose series) [facility] Start: 1985 ONE PNEUMOVAX PRIOR TO AGE 65 ONE PNEUMOVAX PRIOR TO AGE 65 [facility] Start: 1985 Urine microalbumin profile [facility] Start: 1984 Anxiety Screening Anxiety Screening [facility] Start: 1984 BP CONTROLLED (<130/80) BP CONTROLLED (<130/80) [facility] Start: 1984 Depression Screening Depression Screening [facility] Start: 1984 Diabetes mellitus screening Diabetes Screening [facility] Start: 1984 Hepatitis C screening Hepatitis C Screening [facility] Start: 1978 Depression Screening Depression Screening [facility] Start: 1972 PNEUMOCOCCAL (1 - PCV) PNEUMOCOCCAL (1 - PCV) [facility] Start: 10-15-1967 MMR Vaccines (1 of 1 - Standard series) MMR Vaccines (1 of 1 - Standard series) [facility] Start: 1966 HEPATITIS B (1 of 3 - 3-dose series) HEPATITIS B (1 of 3 - 3-dose series) [facility] Start: 1966 Hepatitis B Vaccine (1 of 3 - 3-dose series) Hepatitis B Vaccine (1 of 3 - 3-dose series) [facility] Start: 1966 Hepatitis B Vaccines (1 of 3 - 3-dose series) Hepatitis B Vaccines (1 of 3 - 3-dose series) [facility] Start: 1966 HIV screening HIV Screening [facility] Start: 1966 Lipid panel Lipid Panel [facility] Start: 1966 Screening for malignant neoplasm of colon [facility] Start: 1966 Thyroid stimulating hormone measurement TSH Level [facility] [place]ARDIAC [place] BIC Routine S/P CABG x 1 Ordered: 09/14/2021 [facility] Work Phone: Comment on above: Ordered: 09/14/2021 End: 09-14-2022 EXERCISE STRESS ECG (WITHOUT IMAGING) EXERCISE STRESS ECG (WITHOUT IMAGING) Cardiology Routine S/P CABG x 1 1 Occurrences starting 09/14/2021 until 09/14/2022 [facility] Work Phone: Comment on above: 1 Occurrences starting 09/14/2021 until 09/14/2022 MR Lumbar spine [facility] End: 02-15-2023 MR Shoulder - left WO [facility] Work Phone: Comment on above: Once for 1 Occurrences starting 02/16/20 23 until 02/15/2023 Patient referral [facility] Work Phone: End: 2022 Radiologic exam chest 2 views XR CHEST 2V FRONTAL/LAT Radiology Routine S/P CABG x 1 1 Occurrences starting 09/14/2021 until 2022 [facility] Work Phone: Comment on above: 1 Occurrences starting 09/14/2021 until 2022 Radiologic exam ches t 2 views XR CHEST 2V FRONTAL/LAT Radiology Routine S/P CABG x 1 10/13/2021 7:56 AM EDT [facility] Work Phone: XR Spine Lumbar and Sacrum Views [facility] Work Phone: [facility] Work Phone: [facility] Work Phone: [facility] Work Phone: [facility] Work Phone: [facility] Work Phone: [facility] Work Phone: [facility] Work Phone: [facility] Work Phone: [facility] Work Phone: [facility] Work Phone: [facility] Work Phone: [facility] Work Phone: [facility] Work Phone: [facility] Work Phone: [facility] Work Phone: [facility] Work Phone: [facility] Work Phone: [facility] Work Phone: [facility] Work Phone: [facility] Work Phone: [facility] Work Phone: [facility] Work Phone: [facility] Work Phone: [facility] Work Phone: [facility] Work Phone: [facility] Work Phone: [facility] Work Phone: [facility] Work Phone: [facility] Work Phone: [facility] Work Phone: [facility] Work Phone: [facility] Work Phone: [facility] Work Phone: [facility] Work Phone: [facility] Work Phone: [facility] Work Phone: [facility] Work Phone: [facility] Work Phone: [facility] Work Phone: [facility] Work Phone: [facility] Work Phone: [facility] Work Phone: [facility] Work Phone: [facility] Work Phone[facility] Work Phone: [facility] [place] [employer] Immunizations Immunization Date Immunization Notes Care Provider Fa [facility] 03-20-2008 influenza, seasonal, injectable Chasity Verma [facility] Work Phone: 03-20-2008 influenza virus vaccine, unspecified formulation Ania Motta DO Work Phone: [facility] 02-25-2006 influenza, seasonal, injectable Chasity Verma [facility] Work Phone: Payers Date Payer Category Payer Self-pay [id number] 2023 Unknown [id number] 2023 Worker's Compensation [id number] 2023 Worker's Compensation [id number] 2015 Unknown 2015 Unknown [id number] 2015 Unknown [id number] 2011 Private Health Insurance [id number] 2008 Unknown [id number] 2007 Unknown [id number] 1966 Unknown [id number] Private Health Insurance [id number] Private Health Insurance [id number] Unknown [id number] Unknown [id number] [id number] Unknown [id number] [id number] Unknown [id number] Unknown [id number] [id number] Social History Date Type Detail Facility Start: 06-25-2020 End: 11-24-2022 Alcohol Use Current every day smoker [facility] Work Phone: Comment on above: Heavy in the past. R ehab 2 QD Tobacco Use: Current every da y smoker. [facility] Work Phone: Comment on above: cigars Tobacco use: Never smoker. [facility] Work Phone: Current every da y smoker. [facility]; [facility] Work Phone: Never smoker. [facility]; [facility] Work Phone: Start: 06-25-2020 End: 03-06-2024 Tobacco smoking status NHIS Smokes tobacco daily [facility] Work Phone: Start: 04-11-2002 End: 04-11-2021 History of tobacco use Cigarette Smoker [facility] Work Phone: End: 04-11-2021 History of tobacco use Cigar Smoker [facility] Work Phone: Start: 06-25-2020 End: 04-23-2024 Tobacco use and exposure Smokeless tobacco non-user [facility] Work Phone: Start: 07-16-2021 End: 10-22-2021 Alcohol intake Current drinker of alcohol (finding) [facility] Start: 09-14-2017 History SDOH Alcohol Comment 2-3 beers daily [facility] Start: 07-16-2021 End: 01-21-2022 Tobacco Comment 1 cigar per week [facility] Start: 1965 Sex Assigned At Not on file [facility] Start: 08-14-2021 End: 01-21-2022 Exposure to SARS-CoV-2 (event) Not sure [facility] Start: 08-27-2021 History SDOH Alcohol Comment 6 beers daily [facility] Start: 09-14-2021 End: 04-23-2024 Tobacco smoking status NHIS Ex-smoker [facility] Start: 04-11-2002 End: 04-11-2021 History of tobacco use Current smoker [facility] Start: 11-12-2021 End: 04-23-2024 Alcohol intake Ex-drinker (finding) [facility] Start: 11-12-2021 History SDOH Alcohol Comment Quit in August 2021 [facility] Start: 11-23-2022 End: 11-24-2022 Tobacco use panel [facility] Adult Depression Screening Assessment 0 [facility] Start: 12-21-2022 Tobacco smoking stat [facility] Unknown if ever smoked [facility] Start: 1965 Sex Assigned At Male W [facility] Start: 02-01-2023 Tobacco smoking stat [facility] Never smoked tobacco [facility] Start: 06-22-2024 Sex Male (finding) [facility] Clinical Notes 06-08-2021 to 04-23-2024 Robson Beck MD - 04/23/2024 10:00 AM EST Note Date & Type Note Facility 04-23-2024 History of Present illness Narrative Images from the original note were not included. [facility] SE[facility] [place]iology [place] [facility] [facility] ([facility] [address] [facility] [id number] OUTPATIENT VISIT DATE 04/23/2024 PRIMARY CARE PHYSICIAN: Jordyn Beltran (Jossue) [address] [address] HISTORY OF PRESENT ILLNESS: Mr. Andrade is a 58 year old gentleman with a history of coronary artery disease, hypertension, and dyslipidemia. He had undergone coronary bypass grafting in August of 2021 when he presented with NSTEMI was found to have severe thrombotic disease in the proximal LAD. He is also treated for hypertension and dyslipidemia. He presents the office for routine follow-up. Patient continues to do well from a functional standpoint. He has not had chest pain, chest pressure, or shortness of breath. He has not had palpitations, lightheadedness, dizziness, or syncope. PAST MEDICAL HISTORY Diagnosis Date Alcohol abuse, episodic Anxiety Attention deficit disorder without mention of hyperactivity Class 2 severe obesity due to excess calories with serious comorbidity and body mass index (BMI) of 37.0 to 37.9 in adult ([facility]) Coronary artery disease Coronary atherosclerosis of unspecified type of vessel, [place] or graft Dr. Priest Fatty liver GERD (gastroesophageal reflux disease) Hard of hearing [place] (myocardial infarction) ([facility]) 2005 Also 05/2021 and 08/2021 Pure hypercholesterolemia Status post left heart catheterization Tobacco use disorder PAST SURGICAL HISTORY Procedure Laterality Date CABG (1) VEIN GRAFT & ARTERIAL GRAFT 09/01/2021 SENA to LAD CHOLECYSTECTOMY 08/2008 COLONOSCOPY GEN ANES 2016 reportedly normal PAST SURGICAL HISTORY OF 2004 cardiac stent placement SOCIAL HISTORY Social History Tobacco Use Smoking status: Former Current packs/day: 0.00 Average packs/day: 1 pack/day for 19.0 years (19.0 ttl pk-yrs) Types: Cigars, Cigarettes Start date: 2002 Quit date: 2021 Years since quittin.0 Smokeless tobacco: Never Tobacco comments: 1 cigar per week Vaping Use Vaping status: Never Used Substance Use Topics Alcohol use: Not Currently Alcohol/week: 14.0 - 21.0 standard drinks of alcohol Types: 14 - 21 Cans of Beer (12oz) per week Comment: Quit in August 2021 Drug use: Not Currently Types: Marijuana Comment: marijuana in high school FAMILY HISTORY Problem Relation Age of Onset Diabetes Father Hypertension Father Thyroid Mother Rheumatologic disease Mother RA Stroke Mother No Known Problems Sister Diabetes Brother Diabetes Paternal Grandmother Diabetes Paternal Aunt No Known Problems Sister No Known Problems Sister Asthma Son ALLERGIES: ALLERGIES No Known Allergies MEDICATIONS: ramipril (ALTACE) 5 mg capsule Take 1 capsule by mouth once daily. pantoprazole DR (PROTONIX) 40 mg tablet Take 1 tablet by mouth once daily. LORazepam (ATIVAN) 0.5 mg Take 0.5 mg by mouth once daily as needed (anxiety). Do not start before September 09, 2021. levothyroxine (SYNTHROID) 25 mcg tablet Take 25 mcg by mouth daily at bedtime. atorvastatin (LIPITOR) 40 mg tablet Take 1 tablet by mouth once daily. clopidogrel (PLAVIX) 75 mg tablet Take 1 tablet by mouth once daily. ezetimibe (ZETIA) 10 mg tablet Take 1 tablet by mouth once daily. metoprolol succinate ER (TOPROL XL) 25 mg 24 hr tablet Take 1 tablet by mouth once daily. aspirin, enteric coated (ECOTRIN LOW STRENGTH) 81 mg EC tablet Take 1 tablet by mouth once daily. magnesium oxide (MAG-OX) 400 mg (241.3 mg magnesium) tablet Take 1 tablet by mouth once daily. (Patient not taking: Reported on 09/14/2021) lidocaine (SALONPAS) 4 % patch Apply 1 Patch as directed once daily. Cut in half and apply to each side of midsternal incision - Remove patch after 12 hours. (Patient not taking: Reported on 09/14/2021 ) atomoxetine (STRATTERA) 10 mg capsule Take 30 mg by mouth once daily. REVIEW OF SYSTEMS: Review of Systems Constitutional: Negative for chills, fever, malaise/fatigue and weight loss. HENT: Negative for hearing loss and sore throat. Eyes: Negative for blurred vision and double vision. Respiratory: Negative. Cardiovascular: Negative for chest pain. Genitourinary: Negative for dysuria, frequency, hematuria and urgency. Musculoskeletal: Negative. Skin: Negative. Neurological: Negative for dizziness, seizures, loss of consciousness, weakness and headaches. Endo/Heme/Allergies: Negative for environmental allergies. Does not bruise/bleed easily. Psychiatric/Behavioral: Negative for depression. PHYSICAL EXAMINATION: BP 116/62 Pulse 62 Resp 12 Ht 5' 9 (1.75m) Wt 201 lb (91.2kg) SpO2 98% BMI 29.67 kg/(m^2). General: Very pleasant gentleman sitting appears comfortable no apparent distress. He is alert and oriented x3 HEENT: Carotid upstrokes are brisk bilaterally without bruits no JVD appreciated. Pulmonary: Lungs are clear no rales, wheezes, rhonchi Cardiovascular: Normal S1, S2 with regular rate and rhythm. No murmurs, rubs, gallops Extremities: Warm, well-perfused, no lower extremity edema. 2+ distal pulses CARDIOVASCULAR MEDICINE TESTING: Cardiac Catheterization/PCI 08/27/2021: Hemodynamics: LVEDP: 9 mmHg LV - AORTA: No gradient. Coronary Angiography: Left Main: Large caliber vessel with mild diffuse disease Left Anterior Descending: Large caliber vessel with severe ectatic dilatation of the proximal vessel. There is evidence of diffuse thrombus in the proximal vessel confirmed on intravascular ultrasound. The first diagonal branch is occluded (site of recent intervention). There is a patent stent in the mid vessel. Just distal to the stent is a focal area of severe calcified stenosis estimated luminal narrowing 75 to 80% on IVUS evaluation. Circumflex: Large-caliber dominant vessel. The proximal vessel has minimal disease. There is a large first bifurcating obtuse marginal branch. The proximal segment of the obtuse marginal branch has ectatic dilatation with Heaven mild to moderate calcification. The distal branches of the obtuse marginal branch has minimal disease. The AV groove circumflex extends into a distal obtuse marginal branch which has a focal 50% luminal narrowing. Right Coronary Artery: Large-caliber dominant vessel. The proximal to mid vessel has ectatic dilatation. The distal vessel has mild diffuse disease. Collaterals: None LV Gram: LVEF: 55-60% Wall Motion: Apical wall hypokinesis Percutaneous coronary intervention: The proximal LAD was treated with aspiration thrombectomy. There is limited improvement in the flow in the proximal to mid LAD after multiple passes of the aspiration catheter. Intravascular ultrasound demonstrated continued thrombus burden. The size of the vessel is greater than 7 mm in the proximal segment and nearly 6.3 mm in the segment before the prior mid vessel stent. There is also severe focal disease just distal to the prior stent in the LAD. Cardiac Catheterization/PCI 06/08/2021: Indications: NSTEMI with persistent chest pain. Access: 6Fr. Right radial artery Closure: TR band Findings: Left main Normal LAD widely patent stent with ectasia in the mid vessel, D1 with thrombotic occlusion without evidence for ruptured plaque (relatively small sized vessel). LCx mild diffuse disease RCA mild diffuse disease with ectasia in the mid vessel. LVEDP: 32mmHg Successful mechanical thromobectomy of the thrombus in first diagonal branch of the LAD with catholic of blood flow, no residual stenosis. Echocardiogram 08/28/2021 CONCLUSIONS: - Technically difficult exam due to body habitus. - Exam indication: Re-evaluation of ventricular function following ACS - The left ventricle is normal in size. Left ventricular systolic function is normal. EF = 70 5% (2D biplane) Definity contrast used for endocardial border detection. Indeterminate left ventricular diastolic dysfunction. - The right ventricle is normal in size. Right ventricular systolic function is normal. - There are no significant valvular abnormalities. - Exam was compared with the prior echocardiographic exam performed on 06/09/2021. There is no significant change. CTA Chest 11/23/2022: IMPRESSION: No acute aortic abnormality. Atherosclerotic changes. Ectatic iliac arteries. Please see details in the Result section. Interval median sternotomy and CABG. SENA graft showing little if any enhancement during arterial phase, and faint enhancement on delayed phase. Arterial enhancement to left circumflex graft also diminished, perhaps related to slow flow. SURGERY/PROCEDURE DATE: 09/01/2021 SURGEON(S)/PROCEDURALIST(S) AND SAWING AND ASSEMBLY SUPERVISOR(S): Surgeon(s) and Role: * Chriss Handley MD - Primary GRAFTS: SENA in situ mammary end to side mid LAD Left ANDRES: Skeletonized IMPRESSION: Mr. Andrade is a 58 year old gentleman with a history of coronary artery disease admitted in May 2021 with non-ST elevation myocardial infarction. Cardiac catheterization at that time demonstrated occluded diagonal branch with evidence of thrombus treated with aspiration thrombectomy. He presented in August 2021 with recurrent symptoms of chest pain. He is found to have thrombotic disease in the proximal LAD. On IVUS evaluation the mid vessel had a severe focal calcified stenosis. He was referred for coronary bypass grafting (SENA-LAD 09/01/2021). He is also treated for hypertension and dyslipidemia. He presents the office for routine follow-up PLAN AND RECOMMENDATIONS: 1. Coronary artery disease involving [place] coronary artery of su[place] heart without angina pectoris - ICD9: 414.01, ICD10: I25.10 (primary diagnosis) Patient continues to do well from a functional standpoint. Continue current medical regimen and risk factor occasion - CLOPIDOGREL 75 MG TABLET 2. Essential hypertension - ICD9: 401.9, ICD10: I10 Well-controlled on current regimen. 3. Pure hypercholesterolemia - ICD9: 272.0, ICD10: E78.00 Patient had recent fasting blood work completed by primary care physician. - ATORVASTATIN 40 MG TABLET - EZETIMIBE 10 MG TABLET 4. Tobacco use disorder - ICD9: 305.1, ICD10: F17.200 Patient has not smoked since the time of his myocardial infarction Robson Beck MD documented in this encounter [facility] 04-23-2024 Note HNO ID: [id number] Author: ROBSON BECK MD Service: ? Author Type: Physician Type: Progress Notes Filed: 04/23/2024 11:07 Note Text: [facility] Card[place] ([place] [facility] [address] [facility] [phone] OUTPATIENT VISIT DATE 04/23/2024 PRIMARY CARE PHYSICIAN: Jordyn Beltran (Jossue) [address] [facility] [address] [place] [address] HISTORY OF PRESENT ILLNESS: Mr. Andrade is a 58 year old gentleman with a history of coronary artery disease, hypertension, and dyslipidemia. He had undergone coronary bypass grafting in August of 2021 when he presented with NSTEMI was found to have severe thrombotic disease in the proximal LAD. He is also treated for hypertension and dyslipidemia. He presents the office for routine follow-up. Patient continues to do well from a functional standpoint. He has not had chest pain, chest pressure, or shortness of breath. He has not had palpitations, lightheadedness, dizziness, or syncope. PAST MEDICAL HISTORY Diagnosis Date Alcohol abuse, episodic Anxiety Attention deficit disorder without mention of hyperactivity Class 2 severe obesity due to excess calories with serious comorbidity and body mass index (BMI) of 37.0 to 37.9 in adult ([facility]) Coronary artery disease Coronary atherosclerosis of unspecified type of vessel, [place] or graft Dr. Priest Fatty liver GERD (gastroesophageal reflux disease) Hard of hearing AL (myocardial infarction) ([facility]) 2004 Also 05/2021 and 08/2021 Pure hypercholesterolemia Status post left heart catheterization Tobacco use disorder PAST SURGICAL HISTORY Procedure Laterality Date CABG (1) VEIN GRAFT AND ARTERIAL GRAFT 09/01/2021 SENA to LAD CHOLECYSTECTOMY 08/2008 COLONOSCOPY GEN ANES 2016 reportedly normal PAST SURGICAL HISTORY OF 2004 cardiac stent placement SOCIAL HISTORY Social History Tobacco Use Smoking status: Former Current packs/day: 0.00 Average packs/day: 1 pack/day for 19.0 years (19.0 ttl pk-yrs) Types: Cigars, Cigarettes Start date: 2002 Quit date: 2021 Years since quittin.0 Smokeless tobacco: Never Tobacco comments: 1 cigar per week Vaping Use Vaping status: Never Used Substance Use Topics Alcohol use: Not Currently Alcohol/week: 14.0 - 21.0 standard drinks of alcohol Types: 14 - 21 Cans of Beer (12oz) per week Comment: Quit in August 2021 Drug use: Not Currently Types: Marijuana Comment: marijuana in high school FAMILY HISTORY Problem Relation Age of Onset Diabetes Father Hypertension Father Thyroid Mother Rheumatologic disease Mother RA Stroke Mother No Known Problems Sister Diabetes Brother Diabetes Paternal Grandmother Diabetes Paternal Aunt No Known Problems Sister No Known Problems Sister Asthma Son ALLERGIES: ALLERGIES No Known Allergies MEDICATIONS: ramipril (ALTACE) 5 mg capsule Take 1 capsule by mouth once daily. pantoprazole DR (PROTONIX) 40 mg tablet Take 1 tablet by mouth once daily. LORazepam (ATIVAN) 0.5 mg Take 0.5 mg by mouth once daily as needed (anxiety). Do not start before September 09, 2021. levothyroxine (SYNTHROID) 25 mcg tablet Take 25 mcg by mouth daily at bedtime. atorvastatin (LIPITOR) 40 mg tablet Take 1 tablet by mouth once daily. clopidogrel (PLAVIX) 75 mg tablet Take 1 tablet by mouth once daily. ezetimibe (ZETIA) 10 mg tablet Take 1 tablet by mouth once daily. metoprolol succinate ER (TOPROL XL) 25 mg 24 hr tablet Take 1 tablet by mouth once daily. aspirin, enteric coated (ECOTRIN LOW STRENGTH) 81 mg EC tablet Take 1 tablet by mouth once daily. magnesium oxide (MAG-OX) 400 mg (241.3 mg magnesium) tablet Take 1 tablet by mouth once daily. (Patient not taking: Reported on 09/14/2021) lidocaine (SALONPAS) 4 % patch Apply 1 Patch as directed once daily. Cut in half and apply to each side of midsternal incision - Remove patch after 12 hours. (Patient not taking: Reported on 09/14/2021 ) atomoxetine (STRATTERA) 10 mg capsule Take 30 mg by mouth once daily. REVIEW OF SYSTEMS: Review of Systems Constitutional: Negative for chills, fever, malaise/fatigue and weight loss. HENT: Negative for hearing loss and sore throat. Eyes: Negative for blurred vision and double vision. Respiratory: Negative. Cardiovascular: Negative for chest pain. Genitourinary: Negative for dysuria, frequency, hematuria and urgency. Musculoskeletal: Negative. Skin: Negative. Neurological: Negative for dizziness, seizures, loss of consciousness, weakness and headaches. Endo/Heme/Allergies: Negative for environmental allergies. Does not bruise/bleed easily. Psychiatric/Behavioral: Negative for depression. PHYSICAL EXAMINATION: BP 116/62 Pulse 62 Resp 12 Ht 5' 9 (1.75m) Wt 201 lb (91.2kg) SpO2 98% BMI 29.67 kg/(m2). General: Very pleasant gentleman (more content not included)... 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 Printed and given to patient as requested. Bacilio Singh MA [facility]09-04-2024 Miscellaneous Notes* Telephone Encounter - Bacilio Singh MA - 12/14/2023 1:17 PM EDT Pt stopped by office to request that the op note and info from last visit be printed in addition tohis return to work date. Printed and given to patient as requested. Bacilio Singh MA documented [facility] History of Present illness Narrative* Robson Beck MD - 03/14/2023 2:20 PM EST Images from the original note were not included. [facility] Card[place] ([place] [facility] [address] [facility] [phone] OUTPATIENT VISIT DATE 03/14/2023 PRIMARY CARE PHYSICIAN: Jordyn Beltran (Jossue) [address] [place] [address] HISTORY OF PRESENT ILLNESS: Mr. Andrade is a 57 year old gentleman with a history of coronary artery disease, hypertension, and dyslipidemia. He had undergone coronary bypass grafting in August of 2021 when he presented with NSTEMI was found to have severe thrombotic disease in the proximal LAD. He is also treated for hypertension and dyslipidemia. He presents the office for routine follow-up. Since his last visit he has been doing well. He has not had symptoms of chest pain or pressure. He denies palpitations, lightheadedness, dizziness, or syncope. He has not had symptoms concerning for congestive heart failure including PND, orthopnea, or lower extremity edema. PAST MEDICAL HISTORY Diagnosis Date Alcohol abuse, episodic Anxiety Attention deficit disorder without mention of hyperactivity Class 2 severe obesity due to excess calories with serious comorbidity and body mass index (BMI) of37.0 to 37.9 in adult Coronary artery disease Coronary atherosclerosis of unspecified type of vessel, [place] or graft Dr. Priest Fatty liver GERD (gastroesophageal reflux disease) Hard of hearing AL (myocardial infarction) ([facility]) 2004 Also 05/2021 and 08/2021 Pure hypercholesterolemia Status post left heart catheterization Tobacco use disorder PAST SURGICAL HISTORY Procedure Laterality Date CABG (1) VEIN GRAFT & ARTERIAL GRAFT 09/01/2021 SENA to LAD CHOLECYSTECTOMY 08/2008 COLONOSCOPY GEN ANES 2016 reportedly normal PAST SURGICAL HISTORY OF 2004 cardiac stent placement SOCIAL HISTORY Social History Tobacco Use Smoking status: Former Packs/day: 1.00 Years: 19.00 Additional pack years: 0.00 Total pack years: 19.00 Types: Cigars, Cigarettes Quit date: 2021 Years since quittin.9 Smokeless tobacco: Never Tobacco comments: 1 cigar per week Vaping Use Vaping Use: Never used Substance Use Topics Alcohol use: Not Currently Alcohol/week: 14.0 - 21.0 standard drinks of alcohol Types: 14 - 21 Cans of Beer (12oz) per week Comment: Quit in August 2021 Drug use: Not Currently Types: Marijuana Comment: marijuana in high school FAMILY HISTORY Problem Relation Age of Onset Diabetes Father Hypertension Father Thyroid Mother Rheumatologic disease Mother RA Stroke Mother No Known Problems Sister Diabetes Brother Diabetes Paternal Grandmother Diabetes Paternal Aunt No Known Problems Sister No Known Problems Sister Asthma Son ALLERGIES: ALLERGIES No Known Allergies MEDICATIONS: metoprolol tartrate, short acting, (LOPRESSOR) 25 mg tablet Take 0.5 tablets by mouth twice daily. ezetimibe (ZETIA) 10 mg tablet Take 1 tablet by mouth once daily. ramipril (ALTACE) 5 mg capsule Take 1 capsule by mouth once daily. atorvastatin (LIPITOR) 40 mg tablet Take 1 tablet by mouth once daily. clopidogrel (PLAVIX) 75 mg tablet Take 1 tablet by mouth once daily. aspirin, enteric coated (ECOTRIN LOW STRENGTH) 81 mg EC tablet Take 1 tablet by mouth once daily. pantoprazole DR (PROTONIX) 40 mg tablet Take 1 tablet by mouth once daily. LORazepam (ATIVAN) 0.5 mg Take 0.5 mg by mouth once daily as needed (anxiety). Do not start before September 09, 2021. levothyroxine (SYNTHROID) 25 mcg tablet Take 25 mcg by mouth daily at bedtime. magnesium oxide (MAG-OX) 400 mg (241.3 mg magnesium) tablet Take 1 tablet by mouth once daily. (Patient not taking: Reported on 09/14/2021 ) lidocaine (SALONPAS) 4 % patch Apply 1 Patch as directed once daily. Cut in half and apply to each side of midsternal incision - Remove patch after 12 hours. (Patient not taking: Reported on 09/14/2021 ) atomoxetine (STRATTERA) 10 mg capsule Take 30 mg by mouth once daily. REVIEW OF SYSTEMS: Review of Systems Constitutional: Negative for chills, fever, malaise/fatigue and weight loss. HENT: Negative for hearing loss and sore throat. Eyes: Negative for blurred vision and double vision. Respiratory: Negative. Cardiovascular: Negative for chest pain. Genitourinary: Negative for dysuria, frequency, hematuria and urgency. Musculoskeletal: Negative. Skin: Negative. Neurological: Negative for dizziness, seizures, loss of consciousness, weakness and headaches. Endo/Heme/Allergies: Negative for environmental allergies. Does not bruise/bleed easily. Psychiatric/Behavioral: Negative for depression. PHYSICAL EXAMINATION: BP 138/89 Pulse 68 Wt 203 lb (92.1kg) SpO2 98% General: Very pleasant gentleman sitting appears comfortable no apparent distress. He is alert and oriented x3 HEENT: Carotid upstrokes are brisk bilaterally without bruits no JVD appreciated. Pulmonary: Lungs are clear no rales, wheezes, rhonchi Cardiovascular: Normal S1, S2 with regular rate and rhythm. No murmurs, rubs, gallops Extremities: Warm, well-perfused, no lower extremity edema. 2+ distal pulses CARDIOVASCULAR MEDICINE TESTING: Cardiac Catheterization/PCI 08/27/2021: Hemodynamics: LVEDP: 9 mmHg LV - AORTA: No gradient. Coronary Angiography: Left Main: Large caliber vessel with mild diffuse disease Left Anterior Descending: Large caliber vessel with severe ectatic dilatation of the proximal vessel. There is evidence of diffuse thrombus in the proximal vessel confirmed on intravascular ultrasound. The first diagonal branch is occluded (site of recent intervention). There is a patent stent in the mid vessel. Just distal to the stent is a focal area of severe calcified stenosis estimated luminal narrowing 75 to 80% on IVUS evaluation. Circumflex: Large-caliber dominant vessel. The proximal vessel has minimal disease. There is a large first bifurcating obtuse marginal branch. The proximal segment of the obtuse marginal branch has ectatic dilatation with Heaven mild to moderate calcification. The distal branches of the obtuse marginal branch has minimal disease. The AV groove circumflex extends into a distal obtuse marginal branch which has a focal 50% luminal narrowing. Right Coronary Artery: Large-caliber dominant vessel. The proximal to mid vessel has ectatic dilatation. The distal vessel has mild diffuse disease. Collaterals: None LV Gram: LVEF: 55-60% Wall Motion: Apical wall hypokinesis Percutaneous coronary intervention: The proximal LAD was treated with aspiration thrombectomy. There is limited improvement in the flow in the proximal to mid LAD after multiple passes of the aspiration catheter. Intravascular ultrasound demonstrated continued thrombus burden. The size of the vessel is greater than 7 mm in the proximal segment and nearly 6.3 mm in the segment before the prior midvessel stent. There is also severe focal disease just distal to the prior stent in the LAD. Cardiac Catheterization/PCI 06/08/2021: Indications: NSTEMI with persistent chest pain. Access: 6Fr. Right radial artery Closure: TR band Findings: Left main Normal LAD widely patent stent with ectasia in the mid vessel, D1 with thrombotic occlusion without evidence for ruptured plaque (relatively small sized vessel). LCx mild diffuse disease RCA mild diffuse disease with ectasia in the mid vessel. LVEDP: 32mmHg Successful mechanical thromobectomy of the thrombus in first diagonal branch of the LAD with catholic of blood flow, no residual stenosis. Echocardiogram 08/28/2021 CONCLUSIONS: - Technically difficult exam due to body habitus. - Exam indication: Re-evaluation of ventricular function following ACS - The left ventricle is normal in size. Left ventricular systolic function is normal. EF = 70 5% (2D biplane) Definity contrast used for endocardial border detection. Indeterminate left ventricular diastolic dysfunction. - The right ventricle is normal in size. Right ventricular systolic function is normal. - There are no significant valvular abnormalities. - Exam was compared with the prior echocardiographic exam performed on 06/09/2021. There is no significant change. CTA Chest 11/23/2022: IMPRESSION: No acute aortic abnormality. Atherosclerotic changes. Ectatic iliac arteries. Please see details inthe Result section. Interval median sternotomy and CABG. SENA graft showing little if any enhancement during arterial phase, and faint enhancement on delayed phase. Arterial enhancement to left circumflex graft also diminished, perhaps related to slow flow. SURGERY/PROCEDURE DATE: 09/01/2021 SURGEON(S)/PROCEDURALIST(S) AND SAWING AND ASSEMBLY SUPERVISOR(S): Surgeon(s) and Role: * Chriss Handley MD - Primary GRAFTS: SENA in situ mammary end to side mid LAD Left ANDRES: Skeletonized IMPRESSION: Mr. Andrade is a 57 year old gentleman with a history of coronary artery disease admitted in May 2021 with non-ST elevation myocardial infarction. Cardiac catheterization at that time demonstrated occluded diagonal branch with evidence of thrombus treated with aspiration thrombectomy. He presented in August with recurrent symptoms of chest pain. He is found to have thrombotic disease in the proximal LAD. On IVUS evaluation the mid vessel had a severe focal calcified stenosis. He was referred for coronary bypass grafting (SENA-LAD 09/01/2021). He is also treated for hypertension and dyslipidemia. He presents the office for routine follow-up PLAN AND RECOMMENDATIONS: 1. Coronary artery disease involving [place] coronary artery of [place] heart without angina pectoris- ICD9: 414.01, ICD10: I25.10 (primary diagnosis) Patient doing well without symptoms concerning for angina. Continue current medical therapy and risk factor modification 2. Essential hypertension - ICD9: 401.9, ICD10: I10 Adequately controlled on current regimen. 3. Pure hypercholesterolemia - ICD9: 272.0, ICD10: E78.00 Maintained on Lipitor 40 mg daily and Zetia 10 mg daily. Patient reports fasting blood work was completed by her primary care provider 4. Tobacco use disorder - ICD9: 305.1, ICD10: F17.200 Patient has not smoked since the time of his myocardial infarction. Robson Beck MD documented in [facility] encounter[facility]23 Telephone encounter Note * Telephone Encounter - Jane Maria - 02/08/2023 9:03 AM EDT Noted thank you! [id number] Miscellaneous Notes* Telephone Encounter - Jane Maria - 02/08/2023 9:03 AM EDT Noted thank you! * Telephone Encounter - Simin Sandoval - 02/07/2023 4:42 PM EDT Pt returned call to schedule. Pt is still currently waiting for C9 to be approved. Pt will call back to schedule once completed. FYI. documented in this [facility]10-30-2023 Telephone encounter Note* Telephone Encounter - Simin Sandoval - 02/07/2023 4:42 PM EDT Pt returned call to schedule. Pt is still currently waiting for C9 to be approved. Pt will call back to schedule once completed. FYI. [id number] Emergency department Note* Cara Rodriguez RN - 02/01/2023 9:27 PM EDT Reviewed discharge instructions and patient verbalized understanding. No further questions. Patientambulated out of ED with strong steady gait. Respirations even and non labored. No acute distress. A&O x4. Cara Rodriguez RN 02/01/232126 [id number] Emergency department Note* Cara Rodriguez RN - 02/01/2023 9:27 PM EDT Reviewed discharge instructions and patient verbalized understanding. No further questions. Patientambulated out of ED with strong steady gait. Respirations even and non labored. No acute distress. A&O x4. Cara Rodriguez RN 02/01/232126 * Ania Motta DO - 02/01/2023 7:51 PM EDT EMERGENCY DEPARTMENT ENCOUNTER Pt Name: Doris Andrade Birthdate 1965 Date of evaluation: 02/01/2023 ED Provider: Ania Motta DO CHIEF COMPLAINT Chief Complaint Patient presents with Shoulder Injury HISTORY OF PRESENT ILLNESS (Location/Symptom, Timing/Onset, Context/Setting, Quality, Duration, Modifying Factors, Severity) Note limiting factors. I wore appropriate PPE for the entirety of this encounter. HPI 57 female presents emergency department a with left shoulder and arm pain after a fall on outstretched hand yesterday. He denies any previous shoulder surgeries. Denies any current numbness or tingling. States it is worse with inversion of the shoulder as well as forward flexion. Nursing Notes were reviewed. Limitations to history: None Outside historians: None REVIEW OF SYSTEMS Review of Systems Musculoskeletal: Positive for arthralgias. Pertinent positives and negatives as per HPI. PAST MEDICAL HISTORY Past Medical History: Diagnosis Date Heart attack (HCC) High cholesterol Hypertension SURGICAL HISTORY Past Surgical History: Procedure Laterality Date CORONARY ARTERY BYPASS GRAFT CURRENT MEDICATIONS Discharge Medication List as of 02/01/2023 9:12 PM CONTINUE these medications which have NOT CHANGED Details aspirin 81 MG EC tablet Take 81 mg by mouth in the morning., Starting Tue10/21/2021, Historical Med ramipril (Altace) 5 MG capsule Take 5 mg by mouth in the morning., Starting Tue07/19/2022, Historical Med atorvastatin (Lipitor) 40 MG tablet Take 40 mg by mouth daily., Starting Tue01/20/2023, HistoricalMed clopidogrel (Plavix) 75 MG tablet Take 75 mg by mouth daily., Starting Tue01/20/2023, Historical Med DULoxetine (Cymbalta) [address] capsule Take 60 mg by mouth daily., Starting Tue01/24/2023, Historical Med ezetimibe (Zetia) 10 MG tablet Take 10 mg by mouth daily., Starting Tue01/20/2023, Historical Med levothyroxine (Synthroid, Levoxyl) 25 MCG tablet Take 25 mcg by mouth daily., Starting Tue01/20/2023, Historical Med LORazepam (Ativan) 0.5 MG tablet TAKE 2 TABLETS BY MOUTH DAILY NEEDED FOR ANXIETY, Historical Med metoprolol tartrate (Lopressor) 25 MG tablet TAKE 1/2 (ONE-HALF) OF A TABLET BY MOUTH TWICE DAILY, Historical Med Multiple Vitamin (multivitamin) capsule daily., Historical Med pantoprazole (ProtoNix) 40 MG EC tablet Take 40 mg by mouth daily., Starting Tue01/20/2023, Historical Med ALLERGIES Patient has no known allergies. FAMILY HISTORY No family history on file. SOCIAL HISTORY Social History Socioeconomic History Marital status: Tobacco Use Smoking status: Never Smokeless tobacco: Never Vaping Use Vaping Use: Never used Substance and Sexual Activity Alcohol use: Not Currently Drug use: Never SCREENINGS PHYSICAL EXAM ED Triage Vitals Temp Pulse Resp BP -- -- -- -- SpO2 Temp src Heart Rate Source Patient Position -- -- -- -- BP Location FiO2 (%) -- -- Physical Exam Vitals and nursing note reviewed. Constitutional: General: He is not in acute distress. Appearance: He is well-developed. HENT: Head: Normocephalic and atraumatic. Eyes: Conjunctiva/sclera: Conjunctivae normal. Cardiovascular: Rate and Rhythm: Normal rate. Pulses: Normal pulses. Pulmonary: Effort: Pulmonary effort is normal. Abdominal: Palpations: Abdomen is soft. Tenderness: There is no abdominal tenderness. Musculoskeletal: General: Tenderness present. No swelling or deformity. Cervical back: Neck supple. Comments: left anterior shoulder tenderness pain with flexion past 90 degrees as well as internal rotation. Mild tenderness over the left forearm as well. 2+ radial pulses and sensation intact to theleft hand. No bony tenderness over the wrist or elbow. Skin: General: Skin is warm and dry. Neurological: Mental Status: He is alert. Sensory: No sensory deficit. Psychiatric: Mood and Affect: Mood normal. DIAGNOSTIC RESULTS Procedures/EKG: RADIOLOGY (Per Emergency Physician): Interpretation per the Radiologist below, if available at the time of this note: XR shoulder 2+ views left Final Result 1. No acute osseous abnormality. LEFT FOREARM 2 VIEWS CLINICAL INDICATION: pain/injury TECHNIQUE: 2 views of the left forearm. COMPARISON: None. FINDINGS: No acute fracture or dislocation. Marginal spurring in the ulnotrochlear articulation. Degenerative change in the thumb CMC joint. Soft tissues grossly unremarkable. IMPRESSION: 1. No acute osseous abnormality. 2. Degenerative change. Report Dictated on Electronically Signed By: Lex Cifuentes MD Electronically Signed Date/Time: 02/01/2023 8:57 PM EDT XR forearm 2 views left Final Result 1. No acute osseous abnormality. LEFT FOREARM 2 VIEWS CLINICAL INDICATION: pain/injury TECHNIQUE: 2 views of the left forearm. COMPARISON: None. FINDINGS: No acute fracture or dislocation. Marginal spurring in the ulnotrochlear articulation. Degenerative change in the thumb CMC joint. Soft tissues grossly unremarkable. IMPRESSION: 1. No acute osseous abnormality. 2. Degenerative change. Report Dictated on Electronically Signed By: Lex Cifuentes MD Electronically Signed Date/Time: 02/01/2023 8:57 PM EDT ED BEDSIDE ULTRASOUND: Performed by ED Physician - none LABS: Labs Reviewed - No data to display All other labs were within normal range or not returned as of this dictation. EMERGENCY DEPARTMENT COURSE and DIFFERENTIAL DIAGNOSIS/MDM: Vitals: Vitals: 02/01/23202002/01/23202402/01/23202602/01/232123 BP: (!) 129/93 (!) 131/93 BP Location: Right arm Right arm Patient Position: Sitting Sitting Pulse: 60 65 Resp: 18 18 Temp: 37.3 C (99.1 F) TempSrc: Oral SpO2: 97% 96% Weight: 90.7 kg (200 lb) Height: 1.753 m (5' 9) ED Course as of 02/01/232133Feb 01, 20232025 57 female presents emergency department a with left shoulder and arm pain after a fall on outstretched hand yesterday. He denies any previous shoulder surgeries. Denies any current numbness or tingling. States it is worse with inversion of the shoulder as well as forward flexion. On exam has left anterior shoulder tenderness pain with flexion past 90 degrees as well as internal rotation. Mild tenderness over the left forearm as well. 2+ radial pulses and sensation intact to the left hand. No bony tenderness over the wrist or elbow. He does not want anything for pain. We will obtain left shoulder and left forearm x-ray to evaluate for fracture if negative will give referral to orthopedic surgery with recommendation to get MRI for possible rotator cuff injury. [BM] 2110 X-ray of left shoulder and forearm negative for acute fracture. Will discharge home with orthopedic follow-up. [BM] ED Course User Index [BM] Ania Motta DO Diagnoses as of 02/01/232133 Acute pain of left shoulder Medications - No data to display REVAL: CRITICAL CARE TIME FINAL IMPRESSION 1. Acute pain of left shoulder DISPOSITION Discharge 02/01/2023 09:11:38 PM PATIENT REFERRED TO: [facility] [address] [place] [phone] DISCHARGE MEDICATIONS: Discharge Medication List as of 02/01/2023 9:12 PM (Comment: Please note this report has been produced using speech recognition software and may contain errors related to that system including errors in grammar, punctuation, and spelling, as well as words and phrases that may be inappropriate. If there are any questions or concerns please feel freeto contact the dictating provider for clarification.) Ania Motta DO (electronically signed) Emergency Medicine Provider Ania Motta DO 02/01/232133 * Cara Rodriguez RN - 02/01/2023 7:51 PM EDT Patient ambulated to ED4 without difficulty, visitor at bedside. He reports that he Fell on his Left shoulder. He stepped in the space between a trailer and dock. Injury happened on the at 1230AM. He took IBU this morning. He states that it hurts to raise his arms more than above the level of the shoulder. He had cramping in the finger all the way up the arm. He no longer has numbness or tingling in the arm, like he did this morning. No neck or back pain. Patient appears to be in no acute distress. Skin is warm, dry, and pink. A&O x3. Respirations even and non labored. Bed in locked and low position. Call light within reach. Patient has no further needs. documented in this [facility]10-24-2023 Hospital Discharge instructions* Discharge Instructions* Ania Motta DO - 02/01/2023 9:11 PM EDT Please follow-up with orthopedic surgery if you are having ongoing pain as you may need advanced imaging, ibuprofen and Tylenol as needed for pain. * Attachments The following attachments cannot be sent through Care Everywhere. * Shoulder Pain Discharge Instructions (Puerto Rican) documented in this [facility]10-24-2023 Emergency department Triage note* Cara Rodriguez RN - 02/01/2023 7:51 PM EDT Patient ambulated to ED4 without difficulty, visitor at bedside. He reports that he Fell on his Left shoulder. He stepped in the space between a trailer and dock. Injury happened on the at 1230AM. He took IBU this morning. He states that it hurts to raise his arms more than above the level of the shoulder. He had cramping in the finger all the way up the arm. He no longer has numbness or tingling in the arm, like he did this morning. No neck or back pain. Patient appears to be in no acute distress. Skin is warm, dry, and pink. A&O x3. Respirations even and non labored. Bed in locked and low position. Call light within reach. Patient has no further needs. [id number] Emergency department Note* Ania Motta DO - 02/01/2023 7:51 PM EDT EMERGENCY DEPARTMENT ENCOUNTER Pt Name: Doris Andrade Birthdate 1965 Date of evaluation: 02/01/2023 ED Provider: Ania Motta DO CHIEF COMPLAINT Chief Complaint Patient presents with Shoulder Injury HISTORY OF PRESENT ILLNESS (Location/Symptom, Timing/Onset, Context/Setting, Quality, Duration, Modifying Factors, Severity) Note limiting factors. I wore appropriate PPE for the entirety of this encounter. HPI 57 female presents emergency department a with left shoulder and arm pain after a fall on outstretched hand yesterday. He denies any previous shoulder surgeries. Denies any current numbness or tingling. States it is worse with inversion of the shoulder as well as forward flexion. Nursing Notes were reviewed. Limitations to history: None Outside historians: None REVIEW OF SYSTEMS Review of Systems Musculoskeletal: Positive for arthralgias. Pertinent positives and negatives as per HPI. PAST MEDICAL HISTORY Past Medical History: Diagnosis Date Heart attack (HCC) High cholesterol Hypertension SURGICAL HISTORY Past Surgical History: Procedure Laterality Date CORONARY ARTERY BYPASS GRAFT CURRENT MEDICATIONS Discharge Medication List as of 02/01/2023 9:12 PM CONTINUE these medications which have NOT CHANGED Details aspirin 81 MG EC tablet Take 81 mg by mouth in the morning., Starting 10/21/2021, Historical Med ramipril (Altace) 5 MG capsule Take 5 mg by mouth in the morning., Starting Tue07/19/2022, Historical Med atorvastatin (Lipitor) 40 MG tablet Take 40 mg by mouth daily., Starting Tue01/20/2023, HistoricalMed clopidogrel (Plavix) 75 MG tablet Take 75 mg by mouth daily., Starting Tue01/20/2023, Historical Med DULoxetine (Cymbalta) [address] capsule Take 60 mg by mouth daily., Starting Tue01/24/2023, Historical Med ezetimibe (Zetia) 10 MG tablet Take 10 mg by mouth daily., Starting Tue01/20/2023, Historical Med levothyroxine (Synthroid, Levoxyl) 25 MCG tablet Take 25 mcg by mouth daily., Starting Tue01/20/2023, Historical Med LORazepam (Ativan) 0.5 MG tablet TAKE 2 TABLETS BY MOUTH DAILY NEEDED FOR ANXIETY, Historical Med metoprolol tartrate (Lopressor) 25 MG tablet TAKE 1/2 (ONE-HALF) OF A TABLET BY MOUTH TWICE DAILY, Historical Med Multiple Vitamin (multivitamin) capsule daily., Historical Med pantoprazole (ProtoNix) 40 MG EC tablet Take 40 mg by mouth daily., Starting Tue01/20/2023, Historical Med ALLERGIES Patient has no known allergies. FAMILY HISTORY No family history on file. SOCIAL HISTORY Social History Socioeconomic History Marital status: Tobacco Use Smoking status: Never Smokeless tobacco: Never Vaping Use Vaping Use: Never used Substance and Sexual Activity Alcohol use: Not Currently Drug use: Never SCREENINGS PHYSICAL EXAM ED Triage Vitals Temp Pulse Resp BP -- -- -- -- SpO2 Temp src Heart Rate Source Patient Position -- -- -- -- BP Location FiO2 (%) -- -- Physical Exam Vitals and nursing note reviewed. Constitutional: General: He is not in acute distress. Appearance: He is well-developed. HENT: Head: Normocephalic and atraumatic. Eyes: Conjunctiva/sclera: Conjunctivae normal. Cardiovascular: Rate and Rhythm: Normal rate. Pulses: Normal pulses. Pulmonary: Effort: Pulmonary effort is normal. Abdominal: Palpations: Abdomen is soft. Tenderness: There is no abdominal tenderness. Musculoskeletal: General: Tenderness present. No swelling or deformity. Cervical back: Neck supple. Comments: left anterior shoulder tenderness pain with flexion past 90 degrees as well as internal rotation. Mild tenderness over the left forearm as well. 2+ radial pulses and sensation intact to theleft hand. No bony tenderness over the wrist or elbow. Skin: General: Skin is warm and dry. Neurological: Mental Status: He is alert. Sensory: No sensory deficit. Psychiatric: Mood and Affect: Mood normal. DIAGNOSTIC RESULTS Procedures/EKG: RADIOLOGY (Per Emergency Physician): Interpretation per the Radiologist below, if available at the time of this note: XR shoulder 2+ views left Final Result 1. No acute osseous abnormality. LEFT FOREARM 2 VIEWS CLINICAL INDICATION: pain/injury TECHNIQUE: 2 views of the left forearm. COMPARISON: None. FINDINGS: No acute fracture or dislocation. Marginal spurring in the ulnotrochlear articulation. Degenerative change in the thumb CMC joint. Soft tissues grossly unremarkable. IMPRESSION: 1. No acute osseous abnormality. 2. Degenerative change. Report Dictated on Electronically Signed By: Lex Cifuentes MD Electronically Signed Date/Time: 02/01/2023 8:57 PM EDT XR forearm 2 views left Final Result 1. No acute osseous abnormality. LEFT FOREARM 2 VIEWS CLINICAL INDICATION: pain/injury TECHNIQUE: 2 views of the left forearm. COMPARISON: None. FINDINGS: No acute fracture or dislocation. Marginal spurring in the ulnotrochlear articulation. Degenerative change in the thumb CMC joint. Soft tissues grossly unremarkable. IMPRESSION: 1. No acute osseous abnormality. 2. Degenerative change. Report Dictated on Electronically Signed By: Lex Cifuentes MD Electronically Signed Date/Time: 02/01/2023 8:57 PM EDT ED BEDSIDE ULTRASOUND: Performed by ED Physician - none LABS: Labs Reviewed - No data to display All other labs were within normal range or not returned as of this dictation. EMERGENCY DEPARTMENT COURSE and DIFFERENTIAL DIAGNOSIS/MDM: Vitals: Vitals: 02/01/23202002/01/23202402/01/23202602/01/232123 BP: (!) 129/93 (!) 131/93 BP Location: Right arm Right arm Patient Position: Sitting Sitting Pulse: 60 65 Resp: 18 18 Temp: 37.3 C (99.1 F) TempSrc: Oral SpO2: 97% 96% Weight: 90.7 kg (200 lb) Height: 1.753 m (5' 9) ED Course as of 02/01/232133Feb 01, 20232025 57 female presents emergency department a with left shoulder and arm pain after a fall on outstretched hand yesterday. He denies any previous shoulder surgeries. Denies any current numbness or tingling. States it is worse with inversion of the shoulder as well as forward flexion. On exam has left anterior shoulder tenderness pain with flexion past 90 degrees as well as internal rotation. Mild tenderness over the left forearm as well. 2+ radial pulses and sensation intact to the left hand. No bony tenderness over the wrist or elbow. He does not want anything for pain. We will obtain left shoulder and left forearm x-ray to evaluate for fracture if negative will give referral to orthopedic surgery with recommendation to get MRI for possible rotator cuff injury. [BM] 2110 X-ray of left shoulder and forearm negative for acute fracture. Will discharge home with orthopedic follow-up. [BM] ED Course User Index [BM] Ania Motta DO Diagnoses as of 02/01/232133 Acute pain of left shoulder Medications - No data to display REVAL: CRITICAL CARE TIME FINAL IMPRESSION 1. Acute pain of left shoulder DISPOSITION Discharge 02/01/2023 09:11:38 PM PATIENT REFERRED TO: [facility] [address] [place] [phone] DISCHARGE MEDICATIONS: Discharge Medication List as of 02/01/2023 9:12 PM (Comment: Please note this report has been produced using speech recognition software and may contain errors related to that system including errors in grammar, punctuation, and spelling, as well as words and phrases that may be inappropriate. If there are any questions or concerns please feel freeto contact the dictating provider for clarification.) Ania Motta DO (electronically signed) Emergency Medicine Provider Ania Motta DO 02/01/232133 [id number] Miscellaneous Notes* Telephone Encounter - Tika Goodman MA - 11/22/2022 2:34 PM EDT Patient's request for medication is as follows: Requested Prescriptions Pending Prescriptions Disp Refills metoprolol tartrate, short acting, (LOPRESSOR) 25 mg tablet 90 tablet 3 Sig: Take 0.5 tablets by mouth twice daily. Last seen 07.19.22, follow up 03.14.23. Prescription(s) as above. Please process accordingly. Tika Goodman MA documented in this encounterUniversity [facility]12-08-2022 Miscellaneous Notes* Telephone Encounter - Samira Lama LPN - 03/18/2022 4:59 PM EST Patient's request for medication is as follows: Requested Prescriptions Pending Prescriptions Disp Refills clopidogrel (PLAVIX) 75 mg tablet 90 tablet 3 Sig: Take 1 tablet by mouth once daily. Last seen 01/21/2022. Follow up scheduled for 07/19/2022. Prescription(s) as above. Please process accordingly. Samira Lama LPN documented in this encounterUniversity Hospitals [facility]10-13-2022 History of Present illness Narrative* Robson Beck MD - 01/21/2022 3:20 PM EDT Images from the original note were not included. [facility] SE[facility] [place] ([place] [facility] ([facility] [address] [facility] [phone] OUTPATIENT VISIT DATE 01/21/2022 PRIMARY CARE PHYSICIAN: Jordyn Beltran (Jossue) [address] [facility] [address] [place] [id number] HISTORY OF PRESENT ILLNESS: Mr. Andrade is a 56 year old gentleman with a history of coronary artery disease, hypertension, and dyslipidemia. He had undergone coronary bypass grafting in August of this year when he presented with NSTEMI was found to have severe thrombotic disease in the proximal LAD. He completed as much in cardiac rehab is included due to his current work schedule. 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 He occasionally gets right- sided chest pain which she believes issecondary to musculoskeletal issues. He has not had the recurrent symptoms of chest pressure and tightness that he had when he presented with his myocardial infarction. His functional capacity remains excellent. He has not had symptoms concerning for CHF including PND, orthopnea, or lower extremityedema. PAST CARDIAC HISTORY: From last office visit with Samira Chang, SANJIV Doris Andrade is a 56 year old male who presents for hospital follow up. He has a PMhx of CAD (status post CABG x1 09/01/2021 SENA to LAD), HTN, HLD, alcohol use, tobacco use, obesity. He is knownto Dr. Mayer but would like to establish with Dr. Beck. His accompanies him for his office visit today. He explains he has some ongoing post operative chest discomfort. He is attending cardiac rehab PAST MEDICAL HISTORY Diagnosis Date Alcohol abuse, episodic Anxiety Attention deficit disorder without mention of hyperactivity Class 2 severe obesity due to excess calories with serious comorbidity and body mass index (BMI) of37.0 to 37.9 in adult ([facility]) Coronary artery disease Coronary atherosclerosis of unspecified type of vessel, [place] or graft Dr. Priest Fatty liver GERD (gastroesophageal reflux disease) Hard of hearing AL (myocardial infarction) ([facility]) 2004 Pure hypercholesterolemia Status post left heart catheterization Tobacco use disorder PAST SURGICAL HISTORY Procedure Laterality Date CABG (1) VEIN GRAFT & ARTERIAL GRAFT 09/01/2021 SENA to LAD CHOLECYSTECTOMY 08/2008 COLONOSCOPY GEN ANES 2017 reportedly normal PAST SURGICAL HISTORY OF 2004 cardiac stent placement SOCIAL HISTORY Social History Tobacco Use Smoking status: Former Packs/day: 1.00 Years: 19.00 Pack years: 19.00 Types: Cigars, Cigarettes Quit date: 2021 Years since quittin.7 Smokeless tobacco: Never Tobacco comments: 1 cigar per week Vaping Use Vaping Use: Never used Substance Use Topics Alcohol use: Not Currently Alcohol/week: 35.0 - 52.5 standard drinks Types: 14 - 21 Cans of Beer (12oz) per week Comment: Quit in August 2021 Drug use: Not Currently Types: Marijuana Comment: marijuana in high school FAMILY HISTORY Problem Relation Age of Onset Diabetes Father Hypertension Father Thyroid Mother Rheumatologic disease Mother RA Stroke Mother No Known Problems Sister Diabetes Brother Diabetes Paternal Grandmother Diabetes Paternal Aunt No Known Problems Sister No Known Problems Sister Asthma Son ALLERGIES: ALLERGIES No Known Allergies MEDICATIONS: fenofibrate (LOFIBRA) 67 mg capsule TAKE 1 CAPSULE BY MOUTH EVERY DAY with BREAKFAST ezetimibe (ZETIA) 10 mg tablet Take 1 tablet by mouth once daily. metoprolol tartrate, short acting, (LOPRESSOR) 25 mg tablet Take 0.5 tablets by mouth twice daily. clopidogrel (PLAVIX) 75 mg tablet Take 1 tablet by mouth once daily. atorvastatin (LIPITOR) 80 mg tablet Take 1 tablet by mouth once daily. ramipril (ALTACE) 10 mg capsule Take 1 capsule by mouth once daily. aspirin, enteric coated (ECOTRIN LOW STRENGTH) 81 mg EC tablet Take 1 tablet by mouth once daily. pantoprazole DR (PROTONIX) 40 mg tablet Take 1 tablet by mouth once daily. LORazepam (ATIVAN) 0.5 mg Take 0.5 mg by mouth once daily as needed (anxiety). Do not start before September 09, 2021. levothyroxine (SYNTHROID) 25 mcg tablet Take 25 mcg by mouth daily at bedtime. fenofibrate (LOFIBRA) 67 mg capsule Take 67 mg by mouth once daily. magnesium oxide (MAG-OX) 400 mg (241.3 mg magnesium) tablet Take 1 tablet by mouth once daily. (Patient not taking: Reported on 09/14/2021 ) lidocaine (SALONPAS) 4 % patch Apply 1 Patch as directed once daily. Cut in half and apply to each side of midsternal incision - Remove patch after 12 hours. (Patient not taking: Reported on 09/14/2021 ) atomoxetine (STRATTERA) 10 mg capsule Take 30 mg by mouth once daily. REVIEW OF SYSTEMS: Review of Systems Constitutional: Negative for chills, fever, malaise/fatigue and weight loss. HENT: Negative for hearing loss and sore throat. Eyes: Negative for blurred vision and double vision. Respiratory: Negative. Cardiovascular: Positive for chest pain. Genitourinary: Negative for dysuria, frequency, hematuria and urgency. Musculoskeletal: Negative. Skin: Negative. Neurological: Negative for dizziness, seizures, loss of consciousness, weakness and headaches. Endo/Heme/Allergies: Negative for environmental allergies. Does not bruise/bleed easily. Psychiatric/Behavioral: Negative for depression. PHYSICAL EXAMINATION: BP 125/89 Pulse 69 Ht 5' 9 (1.75m) Wt 216 lb (98.0kg) SpO2 98% BMI 31.88 kg/(m^2). General: Very pleasant gentleman sitting appears comfortable no apparent distress. He is alert and oriented x3 HEENT: Carotid upstrokes are brisk bilaterally without bruits no JVD appreciated. Pulmonary: Lungs are clear no rales, wheezes, rhonchi Cardiovascular: Normal S1, S2 with regular rate and rhythm. No murmurs, rubs, gallops Chest: Sternum seems well approximated. Possible small area of separation in the inferior border ofthe sternum. There is no significant immobility. Extremities: Warm, well-perfused, no lower extremity edema. 2+ distal pulses CARDIOVASCULAR MEDICINE TESTING: Cardiac Catheterization/PCI 08/27/2021: Hemodynamics: LVEDP: 9 mmHg LV - AORTA: No gradient. Coronary Angiography: Left Main: Large caliber vessel with mild diffuse disease Left Anterior Descending: Large caliber vessel with severe ectatic dilatation of the proximal vessel. There is evidence of diffuse thrombus in the proximal vessel confirmed on intravascular ultrasound. The first diagonal branch is occluded (site of recent intervention). There is a patent stent in the mid vessel. Just distal to the stent is a focal area of severe calcified stenosis estimated luminal narrowing 75 to 80% on IVUS evaluation. Circumflex: Large-caliber dominant vessel. The proximal vessel has minimal disease. There is a large first bifurcating obtuse marginal branch. The proximal segment of the obtuse marginal branch has ectatic dilatation with [place] mild to moderate calcification. The distal branches of the obtuse marginal branch has minimal disease. The AV groove circumflex extends into a distal obtuse marginal branch which has a focal 50% luminal narrowing. Right Coronary Artery: Large-caliber dominant vessel. The proximal to mid vessel has ectatic dilatation. The distal vessel has mild diffuse disease. Collaterals: None LV Gram: LVEF: 55-60% Wall Motion: Apical wall hypokinesis Percutaneous coronary intervention: The proximal LAD was treated with aspiration thrombectomy. There is limited improvement in the flow in the proximal to mid LAD after multiple passes of the aspiration catheter. Intravascular ultrasound demonstrated continued thrombus burden. The size of the vessel is greater than 7 mm in the proximal segment and nearly 6.3 mm in the segment before the prior midvessel stent. There is also severe focal disease just distal to the prior stent in the LAD. Cardiac Catheterization/PCI 06/08/2021: Indications: NSTEMI with persistent chest pain. Access: 6Fr. Right radial artery Closure: TR band Findings: Left main Normal LAD widely patent stent with ectasia in the mid vessel, D1 with thrombotic occlusion without evidence for ruptured plaque (relatively small sized vessel). LCx mild diffuse disease RCA mild diffuse disease with ectasia in the mid vessel. LVEDP: 32mmHg Successful mechanical thromobectomy of the thrombus in first diagonal branch of the LAD with catholic of blood flow, no residual stenosis. Echocardiogram 08/28/2021 CONCLUSIONS: - Technically difficult exam due to body habitus. - Exam indication: Re-evaluation of ventricular function following ACS - The left ventricle is normal in size. Left ventricular systolic function is normal. EF = 70 5% (2D biplane) Definity contrast used for endocardial border detection. Indeterminate left ventricular diastolic dysfunction. - The right ventricle is normal in size. Right ventricular systolic function is normal. - There are no significant valvular abnormalities. - Exam was compared with the prior echocardiographic exam performed on 06/09/2021. There is no significant change. SURGERY/PROCEDURE DATE: 09/01/2021 SURGEON(S)/PROCEDURALIST(S) AND SAWING AND ASSEMBLY SUPERVISOR(S): Surgeon(s) and Role: * Chriss Handley MD - Primary GRAFTS: SENA in situ mammary end to side mid LAD Left ANDRES: Skeletonized IMPRESSION: Mr. Andrade is a 56 year old gentleman with a history of coronary artery disease admitted in May 2021 with non-ST elevation myocardial infarction. Cardiac catheterization at that time demonstrated occluded diagonal branch with evidence of thrombus treated with aspiration thrombectomy. He presented in August with recurrent symptoms of chest pain. He is found to have thrombotic disease in the proximal LAD. On IVUS evaluation the mid vessel had a severe focal calcified stenosis. He was referred for coronary bypass grafting (SENA-LAD 09/01/2021). He is also treated for hypertension and dyslipidemia. He presents the office for routine follow-up PLAN AND RECOMMENDATIONS: 1. Coronary artery disease involving [place] coronary artery of [place] heart without angina pectoris- ICD9: 414.01, ICD10: I25.10 (primary diagnosis) Patient doing well without overt anginal symptoms and good functional capacity. Occasional episodesof atypical chest pain likely musculoskeletal. Recommended continuing medical therapy and risk factor modification. 2. Essential hypertension - ICD9: 401.9, ICD10: I10 Well-controlled on current regimen. 3. Pure hypercholesterolemia - ICD9: 272.0, ICD10: E78.00 Patient maintained on Lipitor 80 mg daily, Zetia 10 mg daily, fenofibrate 67 mg daily. Recent bloodwork January 18, 2022. LDL cholesterol 49 mg/dL 4. Tobacco use disorder - ICD9: 305.1, ICD10: F17.200 Patient has stopped smoking earlier this year. Encouraged patient in smoking cessation. Robson Beck MD documented in this encounterUniversity Hospitals [facility] Center10-13-2022 Nurse Note* Kusum Mack MA - 01/21/2022 3:15 PM EDT Pt reports some chest pain on his right side that he thinks may be muscular but still freaks him out Denies cardiac complaints at this time documented in this encounterUniversity Hospitals Cleveland [facility] Center10-10-2022 Miscellaneous Notes* Telephone Encounter - Sirisha Goodman LPN - 01/18/2022 1:08 PM EDT Spoke with pt's spouse Haylee about test results. Verbalizes understanding, will relay msg to patient. Sirisha Goodman LPN * Telephone Encounter - Sirisha Goodman LPN - 01/18/2022 12:59 PM EDT ----- Message from Barb Ramey APRN.AIRCRAFT AVIONICS TECHNICIAN sent at 01/18/2022 11:38 AM EDT ----- Please call the patient and report lab revealed cholesterol is under good control. His liver and kidney function remain normal. Thanks, Barb Ramey APRN.AIRCRAFT AVIONICS TECHNICIAN documented in this encounterUniversity Hospitals Cleveland Medical Center08-18-2022 History of Present illness Narrative* Carlos Espinoza, DO - 11/26/2021 11:29 AM EDT Virtual visit statement: This is a virtual visit using [employer] video visit. It required patient-provider interaction for themedical decision making as documented below. Hematology/Oncology Follow up Doris Andrade 1965 November 26, 2021 Referred by: Jordyn Beltran ([facility]) [address] [facility] [id number] Diagnosis: Recurrent cardiac thrombi CC: Results of testing HPI: Doris Andrade is a 56 year old male w/ PMHx CAD s/p ANDREA to LAD 2004, NSTEMI s/p thrombectomy 05/2021 and then CABG x1 on 09/01/21 who presents to follow up on hypercoag work up. In review of records and in discussion w/ patient, he has a very extensive cardiac hx dating back to 2004, NSTEMI 05/2021 and then recurrent undergoing CABG. This led hematology to be consulted and initiate a hypercoag work up which included APC resistance, APLS testing, AT3 def, Protein C and S testing which has all been neg. He is currently undergoing cardiopulmonary rehab and is making improvements. PAST MEDICAL HISTORY Diagnosis Date Alcohol abuse, episodic Anxiety Attention deficit disorder without mention of hyperactivity Class 2 severe obesity due to excess calories with serious comorbidity and body mass index (BMI) of37.0 to 37.9 in adult (HCC) Coronary artery disease Coronary atherosclerosis of unspecified type of vessel, [place] or graft Dr. Priest Fatty liver GERD (gastroesophageal reflux disease) Hard of hearing AL (myocardial infarction) ([facility]) 2004 Pure hypercholesterolemia Status post left heart catheterization Tobacco use disorder PAST SURGICAL HISTORY Procedure Laterality Date CABG (1) VEIN GRAFT & ARTERIAL GRAFT 09/01/2021 SENA to LAD CHOLECYSTECTOMY 08/2008 COLONOSCOPY GEN ANES 2016 reportedly normal PAST SURGICAL HISTORY OF 2004 cardiac stent placement Current Outpatient Medications Medication Sig Dispense Refill ezetimibe (ZETIA) 10 mg tablet Take 1 tablet by mouth once daily. 90 tablet 3 metoprolol tartrate, short acting, (LOPRESSOR) 25 mg tablet Take 0.5 tablets by mouth twice daily. 90 tablet 3 clopidogrel (PLAVIX) 75 mg tablet Take 1 tablet by mouth once daily. 90 tablet 0 atorvastatin (LIPITOR) 80 mg tablet Take 1 tablet by mouth once daily. 90 tablet 3 ramipril (ALTACE) 10 mg capsule Take 1 capsule by mouth once daily. 90 capsule 3 aspirin, enteric coated (ECOTRIN LOW STRENGTH) 81 mg EC tablet Take 1 tablet by mouth once daily. 90 tablet 3 fenofibrate (LOFIBRA) 67 mg capsule Take 1 capsule by mouth daily with breakfast. 90 capsule 0 fenofibrate (LOFIBRA) 67 mg capsule Take 67 mg by mouth once daily. magnesium oxide (MAG-OX) 400 mg (241.3 mg magnesium) tablet Take 1 tablet by mouth once daily. (Patient not taking: Reported on 09/14/2021 ) [address] (PROTONIX) 40 mg tablet Take 1 tablet by mouth once daily. 90 tablet 3 lidocaine (SALONPAS) 4 % patch Apply 1 Patch as directed once daily. Cut in half and apply to each side of midsternal incision - Remove patch after 12 hours. (Patient not taking: Reported on 09/14/2021 ) 7 Patch 0 atomoxetine (STRATTERA) 10 mg capsule Take 30 mg by mouth once daily. LORazepam (ATIVAN) 0.5 mg Take 0.5 mg by mouth once daily as needed (anxiety). Do not start before September 09, 2021. levothyroxine (SYNTHROID) 25 mcg tablet Take 25 mcg by mouth daily at bedtime. No current facility-administered medications for this visit. ALLERGIES No Known Allergies FAMILY HISTORY Problem Relation Age of Onset Diabetes Father Hypertension Father Thyroid Mother Rheumatologic disease Mother RA Stroke Mother No Known Problems Sister Diabetes Brother Diabetes Paternal Grandmother Diabetes Paternal Aunt No Known Problems Sister No Known Problems Sister Asthma Son Social History Tobacco Use Smoking status: Former Packs/day: 1.00 Years: 19.00 Pack years: 19.00 Types: Cigars, Cigarettes Quit date: 2021 Years since quittin.6 Smokeless tobacco: Never Tobacco comments: 1 cigar per week Vaping Use Vaping Use: Never used Substance Use Topics Alcohol use: Not Currently Alcohol/week: 35.0 - 52.5 standard drinks Types: 14 - 21 Cans of Beer (12oz) per week Comment: Quit in August 2021 Drug use: Not Currently Types: Marijuana Comment: marijuana in high school Review of Systems: A complete ROS was obtained and is otherwise neg except as noted in HPI Physical Exam: Vitals not obtained video visit GEN: Aox3, NAD HEENT: sclera anicteric Labs Reviewed protein C function: 126 Protein S 116 AT3 96 APC 2.37 DANGELO - neg Anti Beta 2 glycoprotein - neg Anti cardiolipin - neg Radiology: Pathology: Assessment and Plan: Doris Andrade is a 56 year old male w/ PMHx CAD s/p ANDREA to LAD 2004, NSTEMI s/p thrombectomy 05/2021 and then CABG x1 on 09/01/21 who presents to follow up on hypercoag work up CAD/NSTEMI - w/ recurrent cardiac thrombi, s/p stent, CABG. 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 who will determine length of DAPT Obesity - in cardiopulmonary rehab - advised to continue to work to lose weight to decrease clot risk Tobacco use - utilized cigars - advised to continue to work to not smoke as that will also decrease clot risk CC: Samira Espinoza DO Hematology/Oncology [facility] Medical Decision Making: Problems: Moderate: 2+ stable chronic illnesses Data: Unique test result(s) reviewed: 3+ Medical Decision Making Level: 4 - Moderate documented in this encounterUniversity Hospitals Cleveland Medical Center08-18-2022 Miscellaneous Notes* Telephone Encounter - Kusum Mack MA - 11/26/2021 10:40 AM EDT Patient's request for medication is as follows: Requested Prescriptions Pending Prescriptions Disp Refills fenofibrate (LOFIBRA) 67 mg capsule [Pharmacy Med Name: fenofibrate micronized 67 mg capsule] 90 capsule 3 Sig: TAKE 1 CAPSULE BY MOUTH EVERY DAY with BREAKFAST Last appointment 10/21/21 Next appointment 01/14/22 Prescription(s) as above. Please process accordingly. Kusum Mack MA documented in this encounterUniversity Hospitals Cleveland Medical Center08-15-2022 History of Present illness Narrative* Rosy Flaherty RN - 11/23/2021 7:19 AM EDT Images from the original note were not included. Cardiac Rehabilitation Hospital Based Program Supervising Physician: Dr. Domingo Cowan Diagnosis: CABG Phase: 2 Monitor: Yes Session Number: 17 Today's exercise session was comprised of a warm-up, aerobic conditioning phase, aerobic cool-down,and free weight resistance training omitted per patient request. Patient tolerated prescribed exercise workload. Tele SR-ST without ectopic beats. Vitals WNL for patient. No chest discomfort. No medication changes. This is a hospital based cardiac rehab program. Patient working towards exercise goals by increasing exercise intensity and duration. Patient working towards education goal by attending education sessions in cardiac rehabilitation. Patient has verbalized understanding of Portion Control education topic and the relation to disease managment. Patient's Daily Exercise Log will be scanned into [employer] once it is completed. These can be viewed bygoing under the Scanned Documents tab and looking for documents labeled Cardiac Rehabilitation.Daily Exercise Logs contain exercise data such as, but not limited to modality, intensity, durationand frequency of exercise, along with vital signs pre-, during, and post-exercise. Refer to patient's paper medical record for ECG rhythm strips, physician prescribed Individualized Treatment Plan, and education sessions covered. Rosy Flaherty RN documented in this encounterUniversity Hospitals Cleveland Medical Center08-12-2022 History of Present illness Narrative* Samira Torrez, Watch Repairer - 11/20/2021 6:38 AM EDT Images from the original note were not included. Cardiac Rehabilitation [facility] Based Program Supervising Physician: Rosa Villafuerte Diagnosis: CABG Phase: 2 Monitor: Yes Session Number: 16 Today's exercise session was comprised of a warm-up, aerobic conditioning phase, aerobic cool-down,and free weight resistance training omitted. Patient tolerated prescribed exercise workload. Tele SR-ST without ectopic beats. Vitals WNL for patient. No chest discomfort. No medication changes. This is a hospital based cardiac rehab program. Patient working towards exercise goals by sustaining exercise intensity and duration. Patient working towards education goal by attending education sessions in cardiac rehabilitation. Patient has verbalized understanding of [employer] education topic and the relation to disease managment. Patient's Daily Exercise Log will be scanned into [employer] once it is completed. These can be viewed bygoing under the Scanned Documents tab and looking for documents labeled Cardiac Rehabilitation.Daily Exercise Logs contain exercise data such as, but not limited to modality, intensity, durationand frequency of exercise, along with vital signs pre-, during, and post-exercise. Refer to patient's paper medical record for ECG rhythm strips, physician prescribed Individualized Treatment Plan, and education sessions covered. Samira Torrez Watch Repairer documented in this encounterUniversity Hospitals Cleveland Medical Center08-10-2022 History of Present illness Narrative* Manolo Leavitt Physiologist - 11/18/2021 6:22 AM EDT Images from the original note were not included. Cardiac Rehabilitation Hospital Based Program Supervising Physician: Rosa Villafuerte Diagnosis: CABG Phase: 2 Monitor: Yes Session Number: 15 Today's exercise session was comprised of a warm-up, aerobic conditioning phase, aerobic cool-down,and free weight resistance training omitted. Patient tolerated prescribed exercise workload. Tele SR-ST without ectopic beats. Vitals WNL for patient. No chest discomfort. No medication changes. This is a hospital based cardiac rehab program. Patient working towards exercise goals by sustaining exercise intensity and duration. Patient working towards education goal by attending education sessions in cardiac rehabilitation. Patient has verbalized understanding of MED diet education topic and the relation to disease managment. Patient's Daily Exercise Log will be scanned into [employer] once it is completed. These can be viewed bygoing under the Scanned Documents tab and looking for documents labeled Cardiac Rehabilitation.Daily Exercise Logs contain exercise data such as, but not limited to modality, intensity, durationand frequency of exercise, along with vital signs pre-, during, and post-exercise. Refer to patient's paper medical record for ECG rhythm strips, physician prescribed Individualized Treatment Plan, and education sessions covered. Feroz Shen Watch Repairer documented in this encounterUniversity Hospitals Cleveland Medical Center08-08-2022 History of Present illness Narrative* Rosy Flaherty RN - 11/16/2021 7:08 AM EDT Images from the original note were not included. Cardiac Rehabilitation Hospital Based Program Supervising Physician: Markus Cardenas Diagnosis: CABG Phase: 2 Monitor: Yes Session Number: 14 Today's exercise session was comprised of a warm-up, aerobic conditioning phase, aerobic cool-down,and free weight resistance training. Patient tolerated prescribed exercise workload. Tele SR-ST without ectopic beats. Vitals WNL for patient. No chest discomfort. No medication changes. This is a hospital based cardiac rehab program. Patient working towards exercise goals by increasing exercise intensity. Patient working towards education goal by attending education sessions in cardiac rehabilitation. Patient has verbalized understanding of CHF education topic and the relation to disease managment. Patient's Daily Exercise Log will be scanned into [employer] once it is completed. These can be viewed bygoing under the Scanned Documents tab and looking for documents labeled Cardiac Rehabilitation.Daily Exercise Logs contain exercise data such as, but not limited to modality, intensity, durationand frequency of exercise, along with vital signs pre-, during, and post-exercise. Refer to patient's paper medical record for ECG rhythm strips, physician prescribed Individualized Treatment Plan, and education sessions covered. Rosy Flaherty RN documented in this encounterUniversity Hospitals Cleveland Medical Center08-04-2022 History of Past illness Narrative* Problem Noted Date Resolved Date Anxiety 11/12/2021 11/13/2021 Atypical chest pain 08/27/2021 11/13/2021 NSTEMI (non-ST elevated myocardial infarction) 0 06/08/2021 06/09/2021 documented as of this encounter (statuses as of 11/16/2021) [facility]08-04-[facility] History of Past illness Narrative* Problem Noted Date Resolved Date Anxiety 11/12/2021 11/13/2021 Atypical chest pain 08/27/2021 11/13/2021 NSTEMI (non-ST elevated myocardial infarction) 0 06/08/2021 06/09/2021 documented as of this encounter (statuses as of 11/18/2021) [place] [address]-04-2022 History of Past illness Narrative* Problem Noted Date Resolved Date Anxiety 11/12/2021 11/13/2021 Atypical chest pain 08/27/2021 11/13/2021 NSTEMI (non-ST elevated myocardial infarction) 0 06/08/2021 06/09/2021 documented as of this encounter (statuses as of 11/20/2021) [facility] History of Past illness Narrative* Problem Noted Date Resolved Date Anxiety 11/12/2021 11/13/2021 Atypical chest pain 08/27/2021 11/13/2021 NSTEMI (non-ST elevated myocardial infarction) 0 06/08/2021 06/09/2021 documented as of this encounter (statuses as of 11/23/2021) [facility] History of Past illness Narrative* Problem Noted Date Resolved Date Anxiety 11/12/2021 11/13/2021 Atypical chest pain 08/27/2021 11/13/2021 NSTEMI (non-ST elevated myocardial infarction) 0 06/08/2021 06/09/2021 documented as of this encounter (statuses as of 11/26/2021) [facility] of Past illness Narrative* Problem Noted Date Resolved Date Anxiety 11/12/2021 11/13/2021 Atypical chest pain 08/27/2021 11/13/2021 NSTEMI (non-ST elevated myocardial infarction) 0 06/08/2021 06/09/2021 documented as of this encounter (statuses as of 11/26/2021) [address]-[address]22 History of Past illness Narrative* Problem Noted Date Resolved Date Anxiety 11/12/2021 11/13/2021 Atypical chest pain 08/27/2021 11/13/2021 NSTEMI (non-ST elevated myocardial infarction) 0 06/08/2021 06/09/2021 documented as of this encounter (statuses as of 11/27/2021) [facility] of Past illness Narrative* Problem Noted Date Resolved Date Anxiety 11/12/2021 11/13/2021 Atypical chest pain 08/27/2021 11/13/2021 NSTEMI (non-ST elevated myocardial infarction) 0 06/08/2021 06/09/2021 documented as of this encounter (statuses as of 01/18/2022) [address]22 History of Past illness Narrative* Problem Noted Date Resolved Date Anxiety 11/12/2021 11/13/2021 Atypical chest pain 08/27/2021 11/13/2021 NSTEMI (non-ST elevated myocardial infarction) 0 06/08/2021 06/09/2021 documented as of this encounter (statuses as of 01/21/2022) [address]22 History of Past illness Narrative* Problem Noted Date Resolved Date Anxiety 11/12/2021 11/13/2021 Atypical chest pain 08/27/2021 11/13/2021 NSTEMI (non-ST elevated myocardial infarction) 0 06/08/2021 06/09/2021 documented as of this encounter (statuses as of 03/18/2022) [facility] of Past illness Narrative* Problem Noted Date Diagnosed Date Resolved Date Anxiety 11/12/2021 11/13/2021 Atypical chest pain 08/27/2021 11/14/19 22 NSTEMI (non-ST elevated myoc ardial infarction) 06/08/2021 06/09/2021 documented as of this encounter (statuses as of 11/24/2022) [facility] of Past illness Narrative* Problem Noted Date Diagnosed Date Resolved Date Chest pain 11/12/2021 03/13/2023 Anxiety 11/12/2021 11/13/2021 Atypical chest pain 08/27/2021 11/14/19 22 Elevated troponin 08/27/2021 03/13/2023 NSTEMI (non-ST elevated myoc ardial infarction) 06/08/2021 06/09/2021 documented as of this encounter (statuses as of 03/15/2023) [facility]08-04-[facility] Miscellaneous Notes* Telephone Encounter - Pretty Casanova RN - 11/12/2021 9:30 AM EDT Virtual visit made with Dr. Espinoza on 11/26/2021 Pretty Edilberto, RN * Telephone Encounter - Daksha Montiel MD - 11/11/2021 12:44 PM EDT Ok to make a virtual follow up Daksha Montiel MD * Telephone Encounter - Miko Rendon MA - 11/11/2021 11:25 AM EDT Doris and his called in after I sent a My chart message to make appointment for Hospital f/u. He states that after his last virtual appointment with you they were told they could do virtual for his f/u for lab results, he did not want to make appointment to come in . Please advise Miko Rendon MA documented in this encounterUniversity Hospitals Cleveland Medical Center08-03-2022 History of Present illness Narrative* Feroz Shen, Watch Repairer - 11/11/2021 6:37 AM EDT Images from the original note were not included. Cardiac Rehabilitation Hospital Based Program Supervising Physician: Doris Del Rio Diagnosis: CABG Phase: 2 Monitor: Yes Session Number: 13 Today's exercise session was comprised of a warm-up, aerobic conditioning phase, aerobic cool-down,and free weight resistance training omitted. Patient tolerated prescribed exercise workload. Tele SR-ST without ectopic beats. Vitals WNL for patient. No chest discomfort. No medication changes. This is a hospital based cardiac rehab program. Patient working towards exercise goals by increasing exercise duration. Patient working towards education goal by attending education sessions in cardiac rehabilitation. Patient has verbalized understanding of angina & NTG education topic and the relation to disease managment. Patient's Daily Exercise Log will be scanned into [employer] once it is completed. These can be viewed bygoing under the Scanned Documents tab and looking for documents labeled Cardiac Rehabilitation.Daily Exercise Logs contain exercise data such as, but not limited to modality, intensity, durationand frequency of exercise, along with vital signs pre-, during, and post-exercise. Refer to patient's paper medical record for ECG rhythm strips, physician prescribed Individualized Treatment Plan, and education sessions covered. Feroz Shen Watch Repairer documented in this encounterUniversity Hospitals Cleveland Medical Center08-01-2022 History of Present illness Narrative* Manolo Zavala Physiologist - 11/09/2021 6:53 AM EDT Images from the original note were not included. Cardiac Rehabilitation Hospital Based Program Supervising Physician: Dr. Cowan Diagnosis: CABG Phase: 2 Monitor: Yes Session Number: 12 Today's exercise session was comprised of a warm-up, aerobic conditioning phase, aerobic cool-down,and free weight resistance training omitted. Patient tolerated prescribed exercise workload. Tele SR-ST without ectopic beats. Vitals WNL for patient. No chest discomfort. No medication changes. This is a hospital based cardiac rehab program. Patient working towards exercise goals by sustaining exercise intensity and duration. Patient working towards education goal by attending education sessions in cardiac rehabilitation. Patient has verbalized understanding of CAD education topic and the relation to disease managment. Patient's Daily Exercise Log will be scanned into [employer] once it is completed. These can be viewed bygoing under the Scanned Documents tab and looking for documents labeled Cardiac Rehabilitation.Daily Exercise Logs contain exercise data such as, but not limited to modality, intensity, durationand frequency of exercise, along with vital signs pre-, during, and post-exercise. Refer to patient's paper medical record for ECG rhythm strips, physician prescribed Individualized Treatment Plan, and education sessions covered. Samira Torrez Watch Repairer documented in this encounterUniversity Hospitals [facility] Center07-27-2022 Miscellaneous Notes* Telephone Encounter - Barbara Ambrose RN - 11/04/2021 1:37 PM EDT Spoke with pt. Notified of test results and Irlanda Chang's recommendations. Pt voices understanding. He is agreeable to add Zetia to his lipitor and check labs in 12 weeks. Barbara Ambrose RN * Telephone Encounter - Barbara Ambrose RN - 11/04/2021 1:21 PM EDT Left message on voicemail requesting pt return call for test results. Office phone number provided. Barbara Ambrose RN * Telephone Encounter - Barbara Ambrose RN - 11/04/2021 1:20 PM EDT ----- Message from Samira Chang APRN.[employer] TECHNICIAN sent at 11/04/2021 1:07 PM EDT ----- Repeat lipid panel LDL 96 (down from 114), still above goal of 70. I would recommend adding zetia to his Lipitor 80 mg and repeating lab work in 12 weeks. Orders placed. Please see if the patient is agreeable. Thank you! documented in this encounterUniversity Hospitals Cleveland Medical Center07-26-2022 Miscellaneous Notes* Telephone Encounter - Miko Rendon MA - 11/03/2021 3:25 PM EDT LM to call office for hospital FU appointment wanted to offer him Dec 04 @ 10:[address] Espinoza after his Cardio rehab Miko Rendon MA documented in this encounterUniversity Hospitals Cleveland Medical Center07-26-2022 Miscellaneous Notes* Telephone Encounter - Celia Baron LPN - 11/03/2021 11:01 AM EDT Spoke with pt. Notified of new lipid panel order placed. Celia Baron LPN * Telephone Encounter - Celia Baron LPN - 11/03/2021 11:00 AM EDT Images from the original note were not included. Samira Chang APRN.CNP You 24 minutes ago (10:35 AM) Sure we can repeat a lipid panel check prior to adjusting medications. Order placed. Thank you! Samira Chang APRN.CNP Message text * Addendum Note - Samira Chang APRN.CNP - 11/03/2021 10:38 AM EDT Addended by: SAMIRA CHANG on: 11/03/2021 10:38 AM Modules accepted: Orders * Telephone Encounter - Celia Baron LPN - 11/03/2021 9:46 AM EDT Pt says he messed up on his fasting. He was drinking flavored coffee prior to getting this drawn. He is asking if you would like him to get his lipid redrawn. Celia Baron LPN * Telephone Encounter - Samira Lama LPN - 11/03/2021 9:18 AM EDT Left message for to call [facility] for test results. [facility] phone number provided. Samira Lama LPN * Telephone Encounter - Samira Lama LPN - 11/02/2021 10:49 AM EDT Left message for to call [facility] for test results. [facility] phone number provided. Samira Lama LPN * Telephone Encounter - Samira Lama LPN - 11/02/2021 10:49 AM EDT ----- Message from Samira Chang APRN.[employer]IR[employer] AVION[employer] TECHNICIAN sent at 11/02/2021 10:36 AM EDT ----- Kidney function, electrolytes and liver function are stable. CBC stable. Cholesterol is above goal.Is he taking Lipitor 80 mg every day? We may need to add zetia. Please let me know. Thank you! documented in this encounterUniversity Hospitals Cleveland Medical Center07-20-2022 History of Present illness Narrative* Feroz Shen Watch Repairer - 10/28/2021 6:24 AM EDT Images from the original note were not included. Cardiac Rehabilitation [facility] Based Program Supervising Physician: Dawit Morrell Diagnosis: CABG Phase: 2 Monitor: Yes Session Number: 8 Today's exercise session was comprised of a warm-up, aerobic conditioning phase, aerobic cool-down,and NO free weight resistance training. Patient tolerated prescribed exercise workload. Tele SR-ST without ectopic beats. Vitals WNL for patient. No chest discomfort. No medication changes. This is a hospital based cardiac rehab program. Patient working towards exercise goals by increasing exercise intensity and duration. Patient working towards education goal by attending education sessions in cardiac rehabilitation. Patient has verbalized understanding of exercise components education topic and the relation to disease managment. Patient's Daily Exercise Log will be scanned into [employer] once it is completed. These can be viewed bygoing under the Scanned Documents tab and looking for documents labeled Cardiac Rehabilitation.Daily Exercise Logs contain exercise data such as, but not limited to modality, intensity, durationand frequency of exercise, along with vital signs pre-, during, and post-exercise. Refer to patient's paper medical record for ECG rhythm strips, physician prescribed Individualized Treatment Plan, and education sessions covered. Feroz Shen Watch Repairer documented in this encounterUniversity Hospitals Cleveland [facility] Center07-15-2022 History of Present illness Narrative* Manolo Zavala Physiologist - 10/23/2021 6:44 AM EDT Images from the original note were not included. Cardiac Rehabilitation Hospital Based Program Supervising Physician: Rosa Villafuerte Diagnosis: CABG Phase: 2 Monitor: Yes Session Number: 7 Today's exercise session was comprised of a warm-up, aerobic conditioning phase, aerobic cool-down,and free weight resistance training omitted. Patient tolerated prescribed exercise workload. Tele SR-ST without ectopic beats. Vitals WNL for patient. No chest discomfort. No medication changes. This is a hospital based cardiac rehab program. Patient working towards exercise goals by sustaining exercise intensity and duration. Patient working towards education goal by attending education sessions in cardiac rehabilitation. Patient has verbalized understanding of Cholesterol education topic and the relation to disease managment. Patient's Daily Exercise Log will be scanned into [employer] once it is completed. These can be viewed bygoing under the Scanned Documents tab and looking for documents labeled Cardiac Rehabilitation.Daily Exercise Logs contain exercise data such as, but not limited to modality, intensity, durationand frequency of exercise, along with vital signs pre-, during, and post-exercise. Refer to patient's paper medical record for ECG rhythm strips, physician prescribed Individualized Treatment Plan, and education sessions covered. Samira Torrez Watch Repairer documented in this encounterUniversity Hospitals Cleveland Medical Center07-13-2022 Instructions* Patient Instructions* Samira Chang APRN.[facility] - 10/21/2021 3:31 PM EDT Images from the original note were not included. CORONARY ARTERY DISEASE View image View image WHAT IS CORONARY ARTERY DISEASE? Coronary artery disease (CAD) is a type of heart disease caused by a problem with the blood vesselsthat bring blood and oxygen to the heart muscle. These arteries are called the coronary arteries. This disease increases your risk for heart attack and sudden . WHAT IS THE CAUSE? Fatty deposits called plaque may build up in blood vessels and make them narrower. The narrowing decreases the amount of blood flow to the heart. Plaque also increases the chance that blood clots mayform and block a blood vessel, which can cause a heart attack or stroke. Your risk for CAD may be higher if you: Have a family history of coronary artery disease at an early age Smoke Have high blood pressure Have diabetes Are very overweight Don t get enough exercise Have high levels of blood fat--for example, high cholesterol WHAT ARE THE SYMPTOMS? Coronary artery disease may not cause any symptoms. When there are symptoms, the most common one ischest pain, called angina. You may feel: A feeling of tightness or heaviness in the chest Squeezing, pressure, or burning in the chest Angina symptoms usually: Last for 5 minutes or less and go away with rest or medicine such as nitroglycerin. Happen when the heart has to work harder, such as after a heavy meal or during physical activity oremotional stress. Angina may also happen when you are resting. Call 911 for emergency help right away if you have symptoms of a heart attack. The most common symptoms include: Chest pain or pressure, squeezing, or fullness in the center of your chest that lasts more than a few minutes, or goes away and comes back (may feel like indigestion or heartburn) Pain or discomfort in one or both arms or shoulders, or in your back, neck, jaw, or stomach Trouble breathing Breaking out in a cold sweat for no known reason If your provider has prescribed nitroglycerin for angina, pain that does not go away after taking your nitroglycerin as directed Along with these symptoms, you may also feel very tired, faint, or be sick to your stomach. HOW IS IT DIAGNOSED? Your healthcare provider will ask about your symptoms and medical history and examine you. Tests may include: Blood tests An ECG (also called an EKG or electrocardiogram), which measures and records your heartbeat. An exercise treadmill test to see how your heart works when you exercise An echocardiogram, which uses sound waves (ultrasound) to see how well your heart is pumping Angiogram, which is a series of X-rays taken after your healthcare provider injects a special dye into your blood vessels to show the plascencia of the arteries and any blockage CT scan, which uses X-rays and a computer to show detailed pictures of the arteries HOW IS IT TREATED? Your treatment depends on many factors, such as your age, heart muscle function, and other health problems. At first, treatment may include diet changes and an exercise program. Your healthcare provider may prescribe medicine. Many people need to take 2 or more medicines to help prevent a heart attack or stroke. It may take several weeks or months to find the best treatment for you. Your provider may also prescribe other types of medicine to lower blood pressure, help stop chest pain, control an irregular heartbeat, help prevent blood clots, or lower blood fat (cholesterol). Your provider may recommend a daily low dose of aspirin. Taking an aspirin every day may lower yourrisk for a heart attack or stroke. Not everyone should take aspirin. Daily use of aspirin can causeproblems, such as stomach irritation, bleeding, and hearing loss. Ask your healthcare provider if you should take aspirin and if so, how much to take. If your coronary arteries are badly blocked, you may need balloon angioplasty or bypass surgery. A balloon angioplasty opens blocked blood vessels and improves blood flow. A metal mesh device called a stent is usually left in the blood vessels to help keep them open. Bypass surgery uses blood vessels from other parts of the body, or manmade material, to make a new path around a blocked area. HOW CAN I TAKE CARE OF MYSELF? CC If you have coronary artery disease, there are things you can do to take care of yourself now and prevent problems in the future. Follow your provider's advice about activity, exercise, medicine, and follow-up visits. Lower the amount of salt, saturated and trans fats, and cholesterol in your diet. Work with your healthcare provider to control diabetes, blood pressure, or other health problems you may have. Try to keep a healthy weight. If you are overweight, talk to your provider about ways to lose weight. If you smoke, try to quit. Talk to your healthcare provider about ways to quit smoking. Ask your healthcare provider: o How and when you will hear your test results o How long it will take to recover o What activities you should avoid and when you can return to your normal activities o How to take care of yourself at home o What symptoms or problems you should watch for and what to do if you have them Make sure you know when you should come back for a checkup. HOW CAN I HELP PREVENT CORONARY ARTERY DISEASE? You can prevent this disease with a heart-healthy lifestyle: Eat a healthy diet and keep a healthy weight. Stay fit with the right kind of exercise for you. Find ways to manage stress. Don t smoke. Limit your use of alcohol. Talk to your healthcare provider about your personal and family medical history and your lifestyle habits. This will help you know what you can do to lower your risk for coronary artery disease. If you have a strong family history of CAD, a healthy lifestyle may slow the start of the disease and maybe even keep you from getting it. However, you must have regular checkups to keep a close watch on the health of your heart. Developed by [employer]. Published by [employer]. Copyright 2014 [employer] and/or one of its subsidiaries. All rights reserved. documented in this encounterUniversity Hospitals Cleveland Medical Center07-13-2022 History of Present illness Narrative* Samira Chang APRN.[facility] - 10/21/2021 2:52 PM EDT Chief Complaint Patient presents with: Cardiology Follow Up : hospital follow up History of Present Illness: Doris Andrade is a 56 year old male who presents for hospital follow up. He has a PMhx of CAD (status post CABG x1 09/01/2021 SENA to LAD), HTN, HLD, alcohol use, tobacco use, obesity. He is knownto Dr. Mayer but would like to establish with Dr. Beck. His accompanies him for his office visit today. He explains he has some ongoing post operative chest discomfort. He is attending cardiac rehab. He denies overt SOB, palpitations, dizziness, syncope, orthopnea, LE swelling. He expressesa lot of anxiety regarding ectasia of coronary arteries and preventing future heart attacks/thrombus. We reviewed cardiac risk factors and modifications. He reports he has stopped smoking and drinking. He reports taking medications as prescribed and requests for refills were sent to his pharmacy. PAST MEDICAL HISTORY Diagnosis Date Alcohol abuse, episodic Anxiety Attention deficit disorder without mention of hyperactivity Class 2 severe obesity due to excess calories with serious comorbidity and body mass index (BMI) of37.0 to 37.9 in adult (HCC) Coronary artery disease Coronary atherosclerosis of unspecified type of vessel, [place] or graft Dr. Priest Fatty liver GERD (gastroesophageal reflux disease) Hard of hearing [place] (myocardial infarction) ([facility]) 2004 Pure hypercholesterolemia Status post left heart catheterization Tobacco use disorder PAST SURGICAL HISTORY Procedure Laterality Date CABG (1) VEIN GRAFT & ARTERIAL GRAFT 09/01/2021 SENA to LAD CHOLECYSTECTOMY 08/2008 COLONOSCOPY GEN ANES 2016 reportedly normal PAST SURGICAL HISTORY OF 2004 cardiac stent placement FAMILY HISTORY Problem Relation Age of Onset Diabetes Father Hypertension Father Thyroid Mother Rheumatologic disease Mother RA Stroke Mother No Known Problems Sister Diabetes Brother Diabetes Paternal Grandmother Diabetes Paternal Aunt No Known Problems Sister No Known Problems Sister Asthma Son Social History Tobacco Use Smoking status: Former Smoker Packs/day: 1.00 Years: 19.00 Pack years: 19.00 Types: Cigars Quit date: 2021 Years since quittin.5 Smokeless tobacco: Never Used Tobacco comment: 1 cigar per week Vaping Use Vaping Use: Never used Substance Use Topics Alcohol use: Yes Alcohol/week: 35.0 - 52.5 standard drinks Types: 14 - 21 Cans of Beer (12oz) per week Comment: 6 beers daily Drug use: Not Currently Types: Marijuana Comment: marijuana in high school ALLERGIES No Known Allergies Medications: Current Outpatient Medications Medication Sig Dispense Refill metoprolol tartrate, short acting, (LOPRESSOR) 25 mg tablet Take 0.5 tablets by mouth twice daily. clopidogrel (PLAVIX) 75 mg tablet Take 1 tablet by mouth once daily. 90 tablet 0 fenofibrate (LOFIBRA) 67 mg capsule Take 1 capsule by mouth daily with breakfast. 90 capsule 0 atorvastatin (LIPITOR) 80 mg tablet Take 1 tablet by mouth once daily. [address] (PROTONIX) 40 mg tablet Take 1 tablet by mouth once daily. 90 tablet 3 LORazepam (ATIVAN) 0.5 mg Take 0.5 mg by mouth once daily as needed (anxiety). Do not start before September 09, 2021. levothyroxine (SYNTHROID) 25 mcg tablet Take 25 mcg by mouth daily at bedtime. ASPIRIN 81 MG TAB Take 81 mg by mouth daily at bedtime. 0 fenofibrate (LOFIBRA) 67 mg capsule Take 67 mg by mouth once daily. magnesium oxide (MAG-OX) 400 mg (241.3 mg magnesium) tablet Take 1 tablet by mouth once daily. (Patient not taking: Reported on 09/14/2021 ) 7 tablet 0 lidocaine (SALONPAS) 4 % patch Apply 1 Patch as directed once daily. Cut in half and apply to each side of midsternal incision - Remove patch after 12 hours. (Patient not taking: Reported on 09/14/2021 ) 7 Patch 0 atomoxetine (STRATTERA) 10 mg capsule Take 30 mg by mouth once daily. ramipril (ALTACE) 10 mg capsule Take 1 capsule by mouth once daily. (Patient taking differently: Take 10 mg by mouth daily at bedtime. ) 90 capsule 3 No current facility-administered medications for this visit. Review of Systems Constitutional: Negative for chills, diaphoresis, fever, malaise/fatigue and weight loss. HENT: Negative for congestion, ear pain, nosebleeds, sinus pain and sore throat. Eyes: Negative for pain. Respiratory: Negative for cough, shortness of breath and wheezing. Cardiovascular: Positive for chest pain. Negative for palpitations and leg swelling. Gastrointestinal: Negative for abdominal pain, blood in stool and melena. Genitourinary: Negative for hematuria. Musculoskeletal: Negative for falls. Neurological: Negative for dizziness, tingling, sensory change, speech change, focal weakness, lossof consciousness, weakness and headaches. Endo/Heme/Allergies: Does not bruise/bleed easily. Psychiatric/Behavioral: Negative for depression, memory loss and suicidal ideas. The patient is notnervous/anxious and does not have insomnia. Physical Examination: Vitals:BP 136/91 Pulse 74 Ht 5' 9 (1.75m) Wt 241 lb (109.3kg) SpO2 98% BMI 35.57 kg/(m^2). BP w/Orthostatic Vitals Date and Time Orthostatic BP Orthostatic Pulse BP Pulse BP Position BP Site BP Cuff Size 10/21/21 1445 -- -- 136/91 74 Sitting Left Arm Large Adult Last 2 Encounter Wt Readings: Date: Wt: 10/21/2021 241 lb (109.3 kg) 10/13/2021 238 lb 3.2 oz (108 kg) Physical Exam HENT: Head: Normocephalic. Eyes: Pupils: Pupils are equal, round, and reactive to light. Cardiovascular: Rate and Rhythm: Normal rate and regular rhythm. Pulses: Radial pulses are 2+ on the right side and 2+ on the left side. Dorsalis pedis pulses are 2+ on the right side and 2+ on the left side. Heart sounds: Normal heart sounds, S1 normal and S2 normal. Pulmonary: Effort: Pulmonary effort is normal. No accessory muscle usage or respiratory distress. Breath sounds: Normal breath sounds. Abdominal: General: Bowel sounds are normal. Palpations: Abdomen is soft. Musculoskeletal: General: Normal range of motion. Cervical back: Normal range of motion. Right lower leg: No edema. Left lower leg: No edema. Skin: General: Skin is warm and dry. Comments: Mid sternal incision healed Neurological: Mental Status: He is alert and oriented to person, place, and time. Gait: Gait is intact. Psychiatric: Mood and Affect: Affect normal. Cognition and Memory: Memory normal. Judgment: Judgment normal. Most Recent Cardiac Testing Echocardiogram 08/28/2021 CONCLUSIONS: - Technically difficult exam due to body habitus. - Exam indication: Re-evaluation of ventricular function following ACS - The left ventricle is normal in size. Left ventricular systolic function is normal. EF = 70 5% (2D biplane) Definity contrast used for endocardial border detection. Indeterminate left ventricular diastolic dysfunction. - The right ventricle is normal in size. Right ventricular systolic function is normal. - There are no significant valvular abnormalities. - Exam was compared with the prior echocardiographic exam performed on 06/09/2021. There is no significant change. Assessment and Plan: CAD -status post CABG x1 09/01/2021 SENA to LAD. Left heart cath 08/27/2021 revealed atherosclerosis and thrombus with severely ectatic dilation not amendable with PCI therefore was referred CABG -without symptoms concerning for angina -EF 70% -Continue ASA, plavix, statin, metoprolol -encouraged routine activity and heart healthy diet for risk factor modification -attending cardiac rehab Ectasia of coronary arteries -Will refer for genetic testing/specialist at [facility]: Consult to medical genetics-cardiovascular -imaging of other vascular beds carotid and CTA of abdomen/pelvis without suggestion of dissection,embolism, aneurysm -continue ASA, plavix, statin and metoprolol -reassured patient that activity is safe from a cardiac standpoint when healed from CABG HTN -136/91 -Continue current medication(s) -Encouraged dietary sodium restriction/DASH diet -Recommended regular aerobic exercise. -Recommend home blood pressure monitoring, to bring results in on next visit -Discussed need and benefit for weight loss. -Goal of BP <130/80 HLD -lipid panel 08/24/2021 LDL 108 -continue Lipitor 80 mg -repeat CMP/FLP Tobacco use -cigars, patient reports he has stopped -Encouraged ongoing cessation -Physiologic and physical aspects of tobacco addiction as well as strategies for quitting were discussed. -Counseling was given focusing on the harmful effects of this addiction especially given the patient's medical condition(s) which will be worsened because of the chemicals in tobacco. Obesity -lifestyle modifications -encouraged a heart healthy diet, routine exercise and weight loss Follow up with Dr. Beck in 3 months. Patient to call with any issues or concerns prior to then. Electronically signed by Samira Chang APRN.CNP on October 21, 2021, 2:52 PM documented in this encounterUniversity Hospitals Cleveland Medical Center07-13-2022 Nurse Note* Kusum Mack MA - 10/21/2021 2:46 PM EDT No cardiac concerns today documented in this encounterUniversity Hospitals Cleveland Medical Center07-13-2022 History of Present illness Narrative* Feroz Shen Watch Repairer - 10/21/2021 6:46 AM EDT Images from the original note were not included. Cardiac Rehabilitation Hospital Based Program Supervising Physician: Rosa Villafuerte Diagnosis: CABG Phase: 2 Monitor: Yes Session Number: 6 Today's exercise session was comprised of a warm-up, aerobic conditioning phase, aerobic cool-down,and NO free weight resistance training. Patient tolerated prescribed exercise workload. Tele SR-ST without ectopic beats. Vitals WNL for patient. No chest discomfort. No medication changes. This is a hospital based cardiac rehab program. Patient working towards exercise goals by sustaining exercise intensity and duration. Patient working towards education goal by attending education sessions in cardiac rehabilitation. Patient has verbalized understanding of blood pressure education topic and the relation to disease managment. Patient's Daily Exercise Log will be scanned into [employer] once it is completed. These can be viewed bygoing under the Scanned Documents tab and looking for documents labeled Cardiac Rehabilitation.Daily Exercise Logs contain exercise data such as, but not limited to modality, intensity, durationand frequency of exercise, along with vital signs pre-, during, and post-exercise. Refer to patient's paper medical record for ECG rhythm strips, physician prescribed Individualized Treatment Plan, and education sessions covered. Feroz Shen Watch Repairer documented in this encounterUniversity [facility]07[facility] History of Present illness Narrative* Feroz Shen Watch Repairer - 10/19/2021 6:46 AM EDT Images from the original note were not included. Card[facility] Rehabilitation [facility] Supervising Physician: Rosa Villafuerte Diagnosis: CABG Phase: 2 Monitor: Yes Session Number: 5 Today's exercise session was comprised of a warm-up, aerobic conditioning phase, aerobic cool-down,and NO free weight resistance training. Patient tolerated prescribed exercise workload. Tele SR-ST without ectopic beats. Vitals WNL for patient. No chest discomfort. No medication changes. This is a hospital based cardiac rehab program. Patient working towards exercise goals by increasing exercise duration. Patient working towards education goal by attending education sessions in cardiac rehabilitation. Patient has verbalized understanding of environmental stress education topic and the relation to disease managment. Patient's Daily Exercise Log will be scanned into [employer] once it is completed. These can be viewed bygoing under the Scanned Documents tab and looking for documents labeled Cardiac Rehabilitation.Daily Exercise Logs contain exercise data such as, but not limited to modality, intensity, durationand frequency of exercise, along with vital signs pre-, during, and post-exercise. Refer to patient's paper medical record for ECG rhythm strips, physician prescribed Individualized Treatment Plan, and education sessions covered. Feroz Shen Watch Repairer documented in this encounterUniversity Hospitals [facility]07-08-[facility] History of Present illness Narrative* Manolo Zavala Physiologist - 10/16/2021 6:33 AM EDT Images from the original note were not included. Cardiac Rehabilitation [facility] Program Supervising Physician: Doris Del Rio Diagnosis: CABG Phase: 2 Monitor: Yes Session Number: 4 Today's exercise session was comprised of a warm-up, aerobic conditioning phase, aerobic cool-down,and free weight resistance training omitted. Patient tolerated prescribed exercise workload. Tele SR-ST without ectopic beats. Vitals WNL for patient. No chest discomfort. No medication changes. This is a hospital based cardiac rehab program. Patient working towards exercise goals by increasing exercise intensity and duration. Patient working towards education goal by attending education sessions in cardiac rehabilitation. Patient has verbalized understanding of Weight Management education topic and the relation to disease managment. Patient's Daily Exercise Log will be scanned into [employer] once it is completed. These can be viewed bygoing under the Scanned Documents tab and looking for documents labeled Cardiac Rehabilitation.Daily Exercise Logs contain exercise data such as, but not limited to modality, intensity, durationand frequency of exercise, along with vital signs pre-, during, and post-exercise. Refer to patient's paper medical record for ECG rhythm strips, physician prescribed Individualized Treatment Plan, and education sessions covered. Samira Torrez Watch Repairer documented in this encounterUniversity Hospitals [facility]07-05-2022 Instructions* Patient Instructions* Ada Jimenez APRN.AIRCRAFT AVIONICS TECHNICIAN - 10/13/2021 9:14 AM EDT You have done a great job recovering from you surgery, moving forward, here are the recommendations: Medications: please continue taking Aspirin, beta annette and statin for coronary artery disease. Please avoid taking NSAIDs (Aleve, Ibuprofen, Motrin, Advil, Mobic etc) Driving: Ok to drive now! Vest: ok to stop using Cardiac Rehab: [facility] You will have a EKG stress test before and after the cardiac rehab, [facility] Wound Care: Continue to wash wounds daily with soap and water. [place] chest tube sites daily with betadine until scabbed or healed. NO SWIMMING until all wounds completely healed. Restrictions: slowly increase weight bearing in a gradual fashion (5-10 lbs increment each month) over the next 2-3 months to allow further healing, then gradually resume your normal activities depending on how you feel. Follow-ups: It is crucial to establish future appointments with your main providers, they are you reserves clerk , primary care doctor and/or your administrative support coordinator for medications refills/questions and future health management. You can follow up with cardiac surgery team on as needed basis. Please don't hesitate to contact us if you have any concerns/questions: [phone] Thanks for coming in to see me today. Ada Jimenez APRN.CNP documented in this encounterUniversity Hospitals [facility]07-05-2022 History of Present illness Narrative* Ada Jimenez APRN.CNP - 10/13/2021 8:35 AM EDT HPI: Doris Andrade is a 55 year old male with past medical history significant for CAD s/p stent to LAD in 2004, NSTEMI s/p thrombectomy of diag1 in 05/2021, compliance with DAPT, alcohol abuse, fatty liver disease, hypercholesterolemia who presented with chest pain that started while at work. The patient said that this pain was less intense than with his NSTEMI in May, but he eventually decided to be seen in the ED at [place]. He was given Asprin and nitro, which helped his chest pain. NSTEMI was suspected and he was transferred to [facility]. He was found to have non-ST segment elevation changes on his EKG and his troponins were positive. During the course of his work-up, the patient underwent left heart cath with Dr. Beck. This revealed diffuse thrombus burden likely secondary to plaque rupture in the proximal to mid LAD and occlusion of diag 1 where the patient had prior thrombectomy. This also revealed a focal area distal to his existing stent in the LAD with 75-80% stenosis as wellas apical wall hypokinesis. Left ventricular function was felt to be essentially preserved with estimated EF of 55-60%. CTVS was consulted and he was deemed an appropriate candidate for CABG. Patient underwent CABG x 1 (SENA to LAD) with Dr. Handley on 09/01. [facility] un POD #2. Hematology is been consulted to r/o any possibility of hyerpcoaguable disorder. It was determined that he does not need Eliquis in addition on ASA/Plavix. Hematologic work-up underway and Dr. Montiel wishes to see him in the office as an outpatient. Patient seen/examined on 4200 on POD #4. He was ambulating well, moving bowels, and maintainingsinus rhythm. Plavix was restarted. He was discharged to home with [facility] for SN and PT on 09/05/21 He was seen in 1 week post hospital follow up and was doing quite well. He inquiresd about a prevoius mention of ectatic areas in coronary arteries and aforementioned lifting/activity restrictions and was advised to follow up with his reserves clerk, Dr. Beck in that regard. Interval events: saw Dr. Handley shortly after his initial post op visit for dizziness, lightheadedness and borderline lower BPs (90 SBP in office). Was advised decrease BB to BID if BP <100 prior to taking the medication. Ativan PRN for anxiety. Doris Andrade reports home recovery as listed below: Reports he has been doing well. Walks 1.5 miles BID without chest pain, palp, SOB. Episodes of dizziness or syncope: no Chest pain: no Palpitations: no BP: reviewed per home lo-115/70s, HR 80s. Now taking metoprolol only BId Tolerating diet well without changing bowel habits: yes Fever, chills: no Activities at home with/without SOB or SAN: walks- see above Post surgical pain with pain medications - some bilateral pectoral pain with movements, relived with PRN tylenol. Leg edema: none Sleep: good Energy: good Subjective: Current Outpatient Medications Medication Sig clopidogrel (PLAVIX) 75 mg tablet Take 1 tablet by mouth once daily. fenofibrate (LOFIBRA) 67 mg capsule Take 1 capsule by mouth daily with breakfast. fenofibrate (LOFIBRA) 67 mg capsule Take 67 mg by mouth once daily. atorvastatin (LIPITOR) 80 mg tablet Take 1 tablet by mouth once daily. metoprolol tartrate, short acting, (LOPRESSOR) 25 mg tablet Take 0.5 tablets by mouth every 8 hours. magnesium oxide (MAG-OX) 400 mg (241.3 mg magnesium) tablet Take 1 tablet by mouth once daily. (Patient not taking: Reported on 09/14/2021 ) traMADol (ULTRAM) 50 mg tablet Take 1 tablet by mouth every 6 hours as needed. (Patient not taking:Reported on 09/17/2021) pantoprazole DR (PROTONIX) 40 mg tablet Take 1 tablet by mouth once daily. lidocaine (SALONPAS) 4 % patch Apply 1 Patch as directed once daily. Cut in half and apply to each side of midsternal incision - Remove patch after 12 hours. (Patient not taking: Reported on 09/14/2021 ) atomoxetine (STRATTERA) 10 mg capsule Take 30 mg by mouth once daily. ramipril (ALTACE) 10 mg capsule Take 1 capsule by mouth once daily. (Patient taking differently: Take 10 mg by mouth daily at bedtime. ) LORazepam (ATIVAN) 0.5 mg Take 0.5 mg by mouth once daily as needed (anxiety). Do not start before September 09, 2021. levothyroxine (SYNTHROID) 25 mcg tablet Take 25 mcg by mouth daily at bedtime. ASPIRIN 81 MG TAB Take 81 mg by mouth daily at bedtime. No current facility-administered medications for this visit. Patient has no known allergies. PAST MEDICAL HISTORY Diagnosis Date Alcohol abuse, episodic Anxiety Attention deficit disorder without mention of hyperactivity Class 2 severe obesity due to excess calories with serious comorbidity and body mass index (BMI) of37.0 to 37.9 in adult ([facility]) Coronary artery disease Coronary atherosclerosis of unspecified type of vessel, [place] or graft Dr. Priest Fatty liver GERD (gastroesophageal reflux disease) Hard of hearing AL (myocardial infarction) ([facility]) 2004 Pure hypercholesterolemia Status post left heart catheterization Tobacco use disorder PAST SURGICAL HISTORY Procedure Laterality Date CABG (1) VEIN GRAFT & ARTERIAL GRAFT 09/01/2021 SENA to LAD CHOLECYSTECTOMY 08/2008 COLONOSCOPY GEN ANES 2016 reportedly normal PAST SURGICAL HISTORY OF 2004 cardiac stent placement FAMILY HISTORY Problem Relation Age of Onset Diabetes Father Hypertension Father Thyroid Mother Rheumatologic disease Mother RA Stroke Mother No Known Problems Sister Diabetes Brother Diabetes Paternal Grandmother Diabetes Paternal Aunt No Known Problems Sister No Known Problems Sister Asthma Son Social History Tobacco Use Smoking status: Former Smoker Packs/day: 1.00 Years: 19.00 Pack years: 19.00 Types: Cigars Quit date: 2021 Years since quittin.5 Smokeless tobacco: Never Used Tobacco comment: 1 cigar per week Vaping Use Vaping Use: Never used Substance Use Topics Alcohol use: Yes Alcohol/week: 35.0 - 52.5 standard drinks Types: 14 - 21 Cans of Beer (12oz) per week Comment: 6 beers daily Drug use: Not Currently Types: Marijuana Comment: marijuana in high school Review of Systems Constitutional: Negative for chills, diaphoresis, fever, malaise/fatigue and weight loss. Respiratory: Negative for cough, hemoptysis, sputum production, shortness of breath and wheezing. Cardiovascular: Negative for chest pain, palpitations, orthopnea, claudication, leg swelling and PND. Gastrointestinal: Negative for abdominal pain, blood in stool, constipation, diarrhea, nausea and vomiting. Skin: Positive for itching. Negative for rash. Reports some sternal itching Neurological: Negative for dizziness and headaches. Endo/Heme/Allergies: Does not bruise/bleed easily. Psychiatric/Behavioral: Negative for depression. Objective: One month post- op Chest X-ray is done and reviewed today. Official read pending. Preliminary review without any acute abnormalities. Physical Examination: Vitals:BP 110/70 Pulse 72 Resp 16 Ht 5' 9 (1.75m) Wt 238 lb 3.2 oz (108.0kg) SpO2 99% BMI 35.16 kg/(m^2). Last 2 Encounter Wt Readings: Date: Wt: 10/06/2021 236 lb 6.4 oz (107.2 kg) 09/23/2021 232 lb (105.2 kg) Physical Exam Constitutional: General: He is not in acute distress. Appearance: Normal appearance. HENT: Head: Normocephalic and atraumatic. Nose: Nose normal. Eyes: Extraocular Movements: Extraocular movements intact. Conjunctiva/sclera: Conjunctivae normal. Pupils: Pupils are equal, round, and reactive to light. Cardiovascular: Rate and Rhythm: Normal rate and regular rhythm. Pulses: Normal pulses. Heart sounds: Normal heart sounds. Pulmonary: Effort: Pulmonary effort is normal. Breath sounds: Normal breath sounds. Abdominal: General: Bowel sounds are normal. Palpations: Abdomen is soft. Musculoskeletal: Right lower leg: No edema. Left lower leg: No edema. Skin: General: Skin is warm and dry. Capillary Refill: Capillary refill takes less than 2 seconds. Comments: MSI well approximated. Distal incision with pea sized area of pink healed skin 3 mm roundwhere a scab had just fallen off. No drainage, no open areas or s/sx of infection. Sternal bones stable. CT sites x 2 continue to heal both aboutn 2 cm wide 3 mm open pink area of healing skin, some scantyellow eschar which easily debrided with betadine wipe. No s/sx of infection Neurological: General: No focal deficit present. Mental Status: He is alert and oriented to person, place, and time. Psychiatric: Mood and Affect: Mood normal. Assessment and Plan: ASSESSMENT/PLAN: 1. S/P CABG x 1 - ICD9: V45.81, ICD10: Z95.1 (primary diagnosis) - Good post-op recovery for 1 month follow up - Ok to start driving and gradually resume normal ADLs as tolerated - May increase your pushing/pulling/ lifting to <15-20 lbs for this next month, and then <25-30 pounds for the following month, then after 12 weeks from surgery, no restrictions unless otherwise noted by general cardiology in regards to coronary ectasia - Discontinue thoracic vest -Cardiac rehabilitation: ordered placed previously, proceed as scheduled. -Surfacing Machine Operator follow up appointment: set for mid October - continue betadine wipes to CT sites. Advised to call for any s/sx of infection or if not healed or scabbed in next 2 weeks - PCP follow up appointment in 3-4 weeks - Specialty follow up: continues to follow with hematology - Cardiothoracic surgery follow up with us only as needed, otherwise discharged from our service. 2. NSTEMI (non-ST elevated myocardial infarction) (HCC) - ICD9: 410.70, ICD10: I21.4 -- continues on plavix 75 mg once daily, ASA 81 mg oral once daily, metoprolol, lipitor -hypercoaguable work up pending, pt to continue to follow up with Dr. Montiel. 3. Coronary artery disease involving [place] coronary artery of [place] heart without angina pectoris- ICD9: 414.01, ICD10: I25.10 --- cardiac cath 08/27/21 reviewded. Mention of ectatic dilation noted in LAD and LCx. Deferred any terminal make up operator activity and lifting restrictions to general cardiology. 4. Essential hypertension - ICD9: 401.9, ICD10: I10 - good control - Continue current medication(s) metoprolol 12.5 mg oral BID, altace 10 mg daily - Recommended regular aerobic exercise. - Recommend home blood pressure monitoring, to bring results in on next visit - Goal of BP <130/80 Ada Jimenez APRN.SANJIV Electronically signed by Ada Jimenez APRN.CNP on October 13, 2021, 8:35 AM documented in this encounterUniversity [facility]als [facility]07-[facility]-2022 History of Present illness Narrative* NICHELLE Poole) - 10/13/2021 7:45 AM EDT Radiology Service Progress Note PATIENT NAME: Doris Andrade DATE OF SERVICE: October 13, 2021 TIME: 7:57 AM PATIENT IDENTITY VERIFICATION COMPLETED USING TWO (2) IDENTIFIERS: Name and Date of confirmedby patient verbally. FALL SCREENING: Has the patient had 2 falls in the last year or 1 fall with injury or currently using an Ambulatory Assistive Device (Walker, Cane, Wheelchair, Crutches, etc.)? No PATIENT GENDER DATA: Male PATIENT RELEVANT IMPLANT DATA REVIEWED: Not Applicable RADIOLOGY DEPARTMENT: General X-ray: Exam(s) Completed: Chest X-Ray PERIPHERAL IV DATA: Not applicable SIGNED BY: RT Zulema(Yola) October 13, 2021 7:57 AM documented in this encounterUniversity Hospitals [facility]07-01-2022 History of Present illness Narrative* Samira Torrez, Watch Repairer - 10/09/2021 6:39 AM EDT Images from the original note were not included. Cardiac Rehabilitation [facility] Program Supervising Physician: Dr. Mattson Diagnosis: CABG Phase: 2 Monitor: Yes Session Number: 2 Today's exercise session was comprised of a warm-up, aerobic conditioning phase, aerobic cool-down,and free weight resistance training omitted. Patient tolerated prescribed exercise workload. Tele SR-ST without ectopic beats. Vitals WNL for patient. No chest discomfort. No medication changes. This is a hospital based cardiac rehab program. Patient working towards exercise goals by increasing exercise duration. Patient working towards education goal by attending education sessions in cardiac rehabilitation. Patient has verbalized understanding of Portion Control education topic and the relation to disease managment. Patient's Daily Exercise Log will be scanned into [employer] once it is completed. These can be viewed bygoing under the Scanned Documents tab and looking for documents labeled Cardiac Rehabilitation.Daily Exercise Logs contain exercise data such as, but not limited to modality, intensity, durationand frequency of exercise, along with vital signs pre-, during, and post-exercise. Refer to patient's paper medical record for ECG rhythm strips, physician prescribed Individualized Treatment Plan, and education sessions covered. Samira Torrez Watch Repairer documented in this encounterUniversity Hospitals [facility]06-29-2022 History of Present illness Narrative* Feroz Shen Watch Repairer - 10/07/2021 6:28 AM EDT Images from the original note were not included. Cardiac Rehabilitation [facility] Program Supervising Physician: Teto Bowling Diagnosis: CABG Phase: 2 Monitor: Yes Session Number: 1 Today's exercise session was comprised of a warm-up, aerobic conditioning phase, aerobic cool-down,and free weight resistance training. Patient tolerated prescribed exercise workload. Tele SR-ST without ectopic beats. Vitals WNL for patient. No chest discomfort. No medication changes. This is a hospital based cardiac rehab program. Patient working towards exercise goals by increasing exercise frequency, intensity and duration. Patient working towards education goal by attending education sessions in cardiac rehabilitation. Patient has verbalized understanding of reading food labels education topic and the relation to disease managment. Patient's Daily Exercise Log will be scanned into [employer] once it is completed. These can be viewed bygoing under the Scanned Documents tab and looking for documents labeled Cardiac Rehabilitation.Daily Exercise Logs contain exercise data such as, but not limited to modality, intensity, durationand frequency of exercise, along with vital signs pre-, during, and post-exercise. Refer to patient's paper medical record for ECG rhythm strips, physician prescribed Individualized Treatment Plan, and education sessions covered. Feroz Shen Watch Repairer documented in this encounterUniversity Hospitals [facility]06-16-2022 History of Present illness Narrative* Daksha Montiel MD - 09/24/2021 9:39 AM EDT INITIAL CONSULT Diagnosis:Recurrent cardiac thrombi R/o hypercoagulable disorder This is a 55 year old male with past medical history significant for CAD s/p stent to LAD in 2004, NSTEMI s/p thrombectomy of diag1 in 05/2021, compliance with DAPT, alcohol abuse, fatty liver disease, hypercholesterolemia who presents with chest pain. Had chest pain again and the patient underwent left heart cath with Dr. Beck. This revealed diffuse thrombus burden likely secondary to plaque rupture in the proximal to mid LAD and occlusion of diag 1 where the patient had prior thrombectomy. This also revealed a focal area distal to his existing stent in the LAD with 75-80% stenosis as wellas apical wall hypokinesis. Left ventricular function was felt to be essentially preserved with estimated EF of 55-60%.Patient underwent CABG x 1 (SENA to LAD) with RONNIE on 09/01. Hematology is been consulted to r/o any possibility of hyerpcoaguable disorder. No history of DVT/PE. Mother with history of strokes. Patient is taking aspirin and Plavix now. Denies any new complaints. Has quit smoking and drinking. Denies any chest pain, cough, shortness of breath. No headaches. No urinary or bowel trouble. PAST MEDICAL HISTORY Diagnosis Date Alcohol abuse, episodic Anxiety Attention deficit disorder without mention of hyperactivity Class 2 severe obesity due to excess calories with serious comorbidity and body mass index (BMI) of37.0 to 37.9 in adult ([facility]) Coronary artery disease Coronary atherosclerosis of unspecified type of vessel, [place] or graft Dr. Priest Fatty liver GERD (gastroesophageal reflux disease) Hard of hearing AL (myocardial infarction) ([facility]) 2004 Pure hypercholesterolemia Status post left heart catheterization Tobacco use disorder PAST SURGICAL HISTORY Procedure Laterality Date CABG (1) VEIN GRAFT & ARTERIAL GRAFT 09/01/2021 SENA to LAD CHOLECYSTECTOMY 08/2008 COLONOSCOPY GEN ANES 2017 reportedly normal PAST SURGICAL HISTORY OF 2005 cardiac stent placement Social History Tobacco Use Smoking status: Former Smoker Packs/day: 1.00 Years: 19.00 Pack years: 19.00 Types: Cigars Quit date: 2021 Years since quittin.4 Smokeless tobacco: Never Used Tobacco comment: 1 cigar per week Vaping Use Vaping Use: Never used Substance Use Topics Alcohol use: Yes Alcohol/week: 35.0 - 52.5 standard drinks Types: 14 - 21 Cans of Beer (12oz) per week Comment: 6 beers daily Drug use: Not Currently Types: Marijuana Comment: marijuana in high school Current Outpatient Medications Medication Sig Dispense Refill clopidogrel (PLAVIX) 75 mg tablet Take 1 tablet by mouth once daily. 90 tablet 0 fenofibrate (LOFIBRA) 67 mg capsule Take 1 capsule by mouth daily with breakfast. 90 capsule 0 fenofibrate (LOFIBRA) 67 mg capsule Take 67 mg by mouth once daily. atorvastatin (LIPITOR) 80 mg tablet Take 1 tablet by mouth once daily. 90 tablet 3 metoprolol tartrate, short acting, (LOPRESSOR) 25 mg tablet Take 0.5 tablets by mouth every 8 hours. 60 tablet 1 magnesium oxide (MAG-OX) 400 mg (241.3 mg magnesium) tablet Take 1 tablet by mouth once daily. (Patient not taking: Reported on 09/14/2021 ) 7 tablet 0 traMADol (ULTRAM) 50 mg tablet Take 1 tablet by mouth every 6 hours as needed. (Patient not taking:Reported on 09/17/2021) [address] (PROTONIX) 40 mg tablet Take 1 tablet by mouth once daily. 90 tablet 3 lidocaine (SALONPAS) 4 % patch Apply 1 Patch as directed once daily. Cut in half and apply to each side of midsternal incision - Remove patch after 12 hours. (Patient not taking: Reported on 09/14/2021 ) 7 Patch 0 atomoxetine (STRATTERA) 10 mg capsule Take 30 mg by mouth once daily. ramipril (ALTACE) 10 mg capsule Take 1 capsule by mouth once daily. (Patient taking differently: Take 10 mg by mouth daily at bedtime. ) 90 capsule 3 LORazepam (ATIVAN) 0.5 mg Take 0.5 mg by mouth once daily as needed (anxiety). Do not start before September 09, 2021. levothyroxine (SYNTHROID) 25 mcg tablet Take 25 mcg by mouth daily at bedtime. ASPIRIN 81 MG TAB Take 81 mg by mouth daily at bedtime. 0 No current facility-administered medications for this visit. ALLERGIES No Known Allergies REVIEW OF SYSTEMS 12 point system reviewed and negative other than HPI. VIDEO EXAM: (if completed, performed via video enabled technology) No vitals General: Age-appropriate well developed. Appears well. HEENT: Normocephalic,external ears marie l Neck: Normal range of motion Chest: effort normal. No distress Abdomen: no distension Neurological: Alert and oriented. Able to stand from sitting and walk Skin: no visible rash Hematologic: no bruising or petechiae. Psychiatric: Alert and oriented x3. Emotional well-being assessment was performed. Pt denies depression, distress, and or problems with coping or adjustment. Labs Hemoglobin (g/dL) Date Value 09/05/2021 13.5 11/29/2020 17.1 Hematocrit (%) Date Value 09/05/2021 41.3 11/29/2020 51.1 WBC (k/uL) Date Value 09/05/2021 8.07 11/29/2020 11.95 Glucose (mg/dL) Date Value 09/05/2021 123 11/29/2020 93 Potassium (mmol/L) Date Value 09/05/2021 4.4 11/29/2020 4.3 Sodium (mmol/L) Date Value 09/05/2021 134 11/29/2020 138 Chloride (mmol/L) Date Value 09/05/2021 103 11/29/2020 100 CO2 (mmol/L) Date Value 09/05/2021 21 11/29/2020 24 Creatinine (mg/dL) Date Value 09/05/2021 0.65 11/29/2020 0.90 BUN (mg/dL) Date Value 09/05/2021 10 11/29/2020 21 Anion Gap (mmol/L) Date Value 09/05/2021 10 11/29/2020 14 Calcium (mg/dL) Date Value 11/29/2020 9.7 Calcium, Total (mg/dL) Date Value 09/05/2021 9.1 Protein, Total (g/dL) Date Value 08/27/2021 6.3 11/29/2020 6.8 Albumin (g/dL) Date Value 09/05/2021 3.6 11/29/2020 4.9 Bilirubin, Total (mg/dL) Date Value 08/27/2021 0.6 11/29/2020 0.6 Alkaline Phosphatase (U/L) Date Value 08/27/2021 42 11/29/2020 47 AST (U/L) Date Value 08/27/2021 50 11/29/2020 38 ALT (U/L) Date Value 08/27/2021 82 11/29/2020 85 APC Resistance >1.96 Ratio 2.37 B2 glycoprotein negative Anticardiolipin antibody 1. Prolonged APTT screen time and residual heparin detected. 2. Lupus anticoagulant: Unlikely ASSESSMENT/PLAN: 55-year-old male with history of CAD s/p stent to LAD in 2004, NSTEMI s/p thrombectomy 05/2021 subsequently presenting with chest pain 08/2021 and found to have diffuse thrombus burdenlikely secondary to plaque rupture in the proximal to mid LAD and occlusion of diag 1 where the patient had prior thrombectomy. This also revealed a focal area distal to his existing stent in the LADwith 75-80% stenosis as well as apical wall hypokinesis CAD/NSTEMI: Concern for recurrent cardiac thrombi. s/p CABG S/p Stent 2004, CAD 05/2021 and now NSTEMI Reviewed results of labs done in the hospital showing patient was negative for APC resistance. Beta-2 glycoprotein and anticardiolipin antibody was negative. Lupus anticoagulant was unlikely. He is currently on aspirin and Plavix. We will obtain protein C, protein S, Antithrombin III activity now. We will also check for homocystine levels. He has quit smoking and drinking - PROTEIN S CLOTTABLE - PROTEIN C FUNCT - ANTITHROMBIN ACTIVITY - HOMOCYSTEINE Daksha Montiel MD documented in this encounterUniversity Hospitals [facility]06-09-2022 History of Present illness Narrative* Chriss Handley MD - 09/17/2021 1:28 PM EDT PRIMARY CARE PHYSICIAN: Jordyn Beltran ([facility]) [address] [address] Subjective Chief Complaint Patient presents with: Post Op Consult: lightheadness after walking HISTORY OF PRESENT ILLNESS: Mr. Andrade is a 55 year old male status post CABG x1 with SENA to LAD on 09/01. Postop recovery was uneventful and he presented back to the office on 09/14/2021 for his first postoperative visit. At this time he had no complaints and appeared to be doing well. I received a call from visiting nurse overnight last night where the patient had complaints of some dizziness after walk and his blood pressure was slightly elevated. He also had some sternal pain at the time. He has minimal shortness of breath but this is associated with increasing activity. The patient denies nausea, vomiting, fevers, chills, orthopnea, PND, headaches, back pain, easily bleeding or bruising, recent cancer diagnoses, or recent hospitalizations for any reason other than stated above. Review of Systems Constitutional: Negative for chills, fever, malaise/fatigue and weight loss. HENT: Negative for sore throat. Eyes: Negative for blurred vision and double vision. Respiratory: Positive for shortness of breath. Negative for cough, hemoptysis, wheezing and stridor. Cardiovascular: Positive for chest pain. Negative for palpitations, orthopnea, claudication, leg swelling and PND. Gastrointestinal: Negative for abdominal pain, melena, nausea and vomiting. Genitourinary: Negative for flank pain and hematuria. Musculoskeletal: Negative for myalgias. Skin: Negative for rash. Neurological: Positive for dizziness. Negative for seizures and weakness. Objective PAST MEDICAL HISTORY Diagnosis Date Alcohol abuse, episodic Anxiety Attention deficit disorder without mention of hyperactivity Class 2 severe obesity due to excess calories with serious comorbidity and body mass index (BMI) of37.0 to 37.9 in adult ([facility]) Coronary artery disease Coronary atherosclerosis of unspecified type of vessel, [place] or graft Dr. Priest Fatty liver GERD (gastroesophageal reflux disease) Hard of hearing AL (myocardial infarction) ([facility]) 2004 Pure hypercholesterolemia Status post left heart catheterization Tobacco use disorder PAST SURGICAL HISTORY Procedure Laterality Date CABG (1) VEIN GRAFT & ARTERIAL GRAFT 09/01/2021 SENA to LAD CHOLECYSTECTOMY 08/2008 COLONOSCOPY GEN ANES 2016 reportedly normal PAST SURGICAL HISTORY OF 2004 cardiac stent placement FAMILY HISTORY Problem Relation Age of Onset Diabetes Father Hypertension Father Thyroid Mother Rheumatologic disease Mother RA Stroke Mother No Known Problems Sister Diabetes Brother Diabetes Paternal Grandmother Diabetes Paternal Aunt No Known Problems Sister No Known Problems Sister Asthma Son Social History Tobacco Use Smoking status: Former Smoker Packs/day: 1.00 Years: 19.00 Pack years: 19.00 Types: Cigars Quit date: 2021 Years since quittin.4 Smokeless tobacco: Never Used Tobacco comment: 1 cigar per week Vaping Use Vaping Use: Never used Substance Use Topics Alcohol use: Yes Alcohol/week: 35.0 - 52.5 standard drinks Types: 14 - 21 Cans of Beer (12oz) per week Comment: 6 beers daily Drug use: Not Currently Types: Marijuana Comment: marijuana in high school ALLERGIES No Known Allergies Physical Examination Vitals:BP 94/60 Pulse 88 Resp 16 Ht 5' 9 (1.75m) Wt 231 lb (104.8kg) SpO2 98% BMI 34.10 kg/(m^2). BP w/Orthostatic Vitals Date and Time Orthostatic BP Orthostatic Pulse BP Pulse BP Position BP Site BP Cuff Size 09/17/21 1304 -- -- 94/60 88 Sitting Left Arm Large Adult Peak Flow Date and Time PF Resp 09/17/21 1304 -- 16 Last 2 Encounter Wt Readings: Date: Wt: 09/17/2021 231 lb (104.8 kg) 09/14/2021 229 lb 3.2 oz (104 kg) Physical Exam HENT: Head: Normocephalic and atraumatic. Eyes: Pupils: Pupils are equal, round, and reactive to light. Neck: Thyroid: No thyromegaly. Trachea: No tracheal deviation. Cardiovascular: Rate and Rhythm: Normal rate and regular rhythm. Heart sounds: Normal heart sounds. No murmur heard. Comments: Sternal incision and chest tube incisions well-healing Pulmonary: Effort: Pulmonary effort is normal. No accessory muscle usage or respiratory distress. Breath sounds: Normal breath sounds. Abdominal: General: There is no distension. Palpations: Abdomen is soft. Tenderness: There is no abdominal tenderness. Musculoskeletal: General: No deformity. Normal range of motion. Cervical back: Normal range of motion and neck supple. Right lower leg: No edema. Left lower leg: No edema. Skin: General: Skin is warm and dry. Neurological: Mental Status: He is alert and oriented to person, place, and time. Cranial Nerves: No cranial nerve deficit. Medications Current Outpatient Medications Medication Sig Dispense Refill clopidogrel (PLAVIX) 75 mg tablet Take 1 tablet by mouth once daily. 90 tablet 0 fenofibrate (LOFIBRA) 67 mg capsule Take 1 capsule by mouth daily with breakfast. 90 capsule 0 fenofibrate (LOFIBRA) 67 mg capsule Take 67 mg by mouth once daily. atorvastatin (LIPITOR) 80 mg tablet Take 1 tablet by mouth once daily. 90 tablet 3 metoprolol tartrate, short acting, (LOPRESSOR) 25 mg tablet Take 0.5 tablets by mouth every 8 hours. [address] (PROTONIX) 40 mg tablet Take 1 tablet by mouth once daily. 90 tablet 3 atomoxetine (STRATTERA) 10 mg capsule Take 30 mg by mouth once daily. ramipril (ALTACE) 10 mg capsule Take 1 capsule by mouth once daily. (Patient taking differently: Take 10 mg by mouth daily at bedtime. ) 90 capsule 3 LORazepam (ATIVAN) 0.5 mg Take 0.5 mg by mouth once daily as needed (anxiety). Do not start before September 09, 2021. levothyroxine (SYNTHROID) 25 mcg tablet Take 25 mcg by mouth daily at bedtime. ASPIRIN 81 MG TAB Take 81 mg by mouth daily at bedtime. 0 magnesium oxide (MAG-OX) 400 mg (241.3 mg magnesium) tablet Take 1 tablet by mouth once daily. (Patient not taking: Reported on 09/14/2021 ) 7 tablet 0 traMADol (ULTRAM) 50 mg tablet Take 1 tablet by mouth every 6 hours as needed. (Patient not taking:Reported on 09/17/2021) 28 tablet 0 lidocaine (SALONPAS) 4 % patch Apply 1 Patch as directed once daily. Cut in half and apply to each side of midsternal incision - Remove patch after 12 hours. (Patient not taking: Reported on 09/14/2021 ) 7 Patch 0 No current facility-administered medications for this visit. Assessment and Plan: This is a 55-year-old male status post CABG x1 with SENA to LAD on 09/01/2021 with some complaints of dizziness and lightheadedness (according the patient the room is not spinning, however he has had feels fuzzy) at home. Patient states these occurred usually after increasing activity from a 1 to 2 mile walk. He has a home blood pressure monitoring device which has had blood pressures range from 100s to 120s systolic. In the office today his blood pressure was in the 90s but he otherwise felt okay. -No evidence of the patient having any issues with orthostatics. I discussed potentially decreasingthe beta-annette frequency from 3 times a day to twice a day if BP less than 100 prior to taking the medication on home BP checks. -No additional changes to medications -pt already taking ativan for anxiety -sternal incisions healing well, no signs of infection -follow up in the office at scheduled 1 month appointment, instructed pt to call sooner if any issues arise. Chriss Handley MD Cardiothoracic Surgery 09/17/2021 documented in this encounterUniversity Hospitals [facility]06-06-2022 Miscellaneous Notes* Telephone Encounter - Celia Baron LPN - 09/14/2021 10:28 AM EDT Patient's request for medication is as follows: Pending Prescriptions Disp Refills CLOPIDOGREL 75 MG TABLET 90 tablet 0 Sig: Take 1 tablet by mouth once daily. JANA: Yes FENOFIBRATE MICRONIZED 67 MG CAPSULE 90 capsule 0 Sig: Take 1 capsule by mouth daily with breakfast. JANA: No Patient was last seen 07/16/2021. Prescription(s) as above. Please process accordingly. Celia Baron LPN documented in this encounterUniversity Hospitals [facility] Center06-06-2022 Instructions* Patient Instructions* Ada Jimenez APRN.[employer]IR[employer] AVION[employer] TECHNICIAN - 09/14/2021 9:16 AM EDT Weight: Please continue monitoring daily weight; BP LOG: monitor your BP, heart rate and weight daily, record and bring log to next visit please Activity:Continue gradual increase in activities as tolerated; Diet: Heart healthy diet with good protein intake; green leafy vegetable, low salt, and 2 L fluid daily Devices: Wear supportive stockings if swelling returns. posthorax vest (up to 1 month) during daytime and off at nighttime; Restrictions: Continue the weight limit to less than 10 lbs (for one month), and no driving until cleared by your providers; Advice: please change position slowly to prevent fall due to dizziness; Pain control: continue with tylenol, magnesium oxide over the counter, heat/ice, lidocaine patches. Upcoming appointments: Please follow up back here in 3-4 weeks with chest x-ray prior to that appointment Please make cardiology appointment in 4-6 weeks Please make primary care appointment in 4-6 weeks Make appointment with Hematology, DR. MONTIEL [phone] Thanks for coming in to see me today. Please call us if you have any concerns/questions: [phone] Ada Jimenez APRN.AIRCRAFT AVIONICS TECHNICIAN documented in this encounterUniversity Hospitals Cleveland [facility] Center06-06-2022 History of Present illness Narrative* Ada Jimenez APRN.CNP - 09/14/2021 8:22 AM EDT HPI: Doris Andrade is a 55 year old male with past medical history significant for CAD s/p stent to LAD in 2004, NSTEMI s/p thrombectomy of diag1 in 05/2021, compliance with DAPT, alcohol abuse, fatty liver disease, hypercholesterolemia who presents with chest pain. This chest pain started yesterday evening while the patient was at work. The patient said that this pain was less intense than with his NSTEMI in May, but he eventually decided to be seen in the ED at [place]. He was given Asprin and nitro, which helped his chest pain. NSTEMI was suspected and he was transferred to [facility]. He was found to have non-ST segment elevation changes on his EKG and his troponins were positive. During the course of his work-up, the patient underwent left heart cath with Dr. Beck. This revealed diffusethrombus burden likely secondary to plaque rupture in the proximal to mid LAD and occlusion of diag1 where the patient had prior thrombectomy. This also revealed a focal area distal to his existing stent in the LAD with 75-80% stenosis as well as apical wall hypokinesis. Left ventricular function was felt to be essentially preserved with estimated EF of 55-60%. CTVS was consulted and he was deemed an appropriate candidate for CABG. INTERVAL EVENTS / PERTINENT ROS: Patient underwent CABG x 1 (SENA to LAD) with Dr. Handley on 09/01. He was transferred to the CVICU in stable condition and transferred to 4200 un POD #2. Hematology is been consulted to r/o any possibility of hyerpcoaguable disorder. It was determined that he does not need Eliquis in addition on ASA/Plavix. Hematologic work-up underway and Dr. Montiel wishes to see him in the office as an outpatient. Patient seen/examined on 4200 on POD #4. He was ambulating well, moving bowels, and maintaining sinus rhythm. Plavix was restarted. [facility] Interval events: none. He inquires about a prevoius mention of ectatic areas in coronary arteries and aforementioned lifting/activity restrictions Doris Raymond reports home recovery as listed below: Episodes of dizziness or syncope: no Chest pain: no sharp or heavy chest pain, just left clavicular dicomfort and sternal discomfort with some movements Palpitations: no BP: reviewed per home log: not available, but reprts home BPs have been <130/70s. No HR recorts Tolerating diet well without changing bowel habits: yes Fever, chills: no Activities at home with/without SOB or SAN: walks up to 1/4 mile daily with improving SOB. Denies chest pain Post surgical pain with pain medications - tylenol and PRN tramadol. Completed gapabentin Leg edema: no Sleep: goo Energy: good and reports improving Subjective: Current Outpatient Medications Medication Sig fenofibrate (LOFIBRA) 67 mg capsule Take 67 mg by mouth once daily. clopidogrel (PLAVIX) 75 mg tablet Take 75 mg by mouth once daily. atorvastatin (LIPITOR) 80 mg tablet Take 1 tablet by mouth once daily. gabapentin (NEURONTIN) 100 mg capsule Take 2 capsules by mouth twice daily for 7 days. metoprolol tartrate, short acting, (LOPRESSOR) 25 mg tablet Take 0.5 tablets by mouth every 8 hours. magnesium oxide (MAG-OX) 400 mg (241.3 mg magnesium) tablet Take 1 tablet by mouth once daily. traMADol (ULTRAM) 50 mg tablet Take 1 tablet by mouth every 6 hours as needed. (Patient taking differently: Take 1 tablet by mouth every 6 hours as needed for pain.) pantoprazole DR (PROTONIX) 40 mg tablet Take 1 tablet by mouth once daily. lidocaine (SALONPAS) 4 % patch Apply 1 Patch as directed once daily. Cut in half and apply to each side of midsternal incision - Remove patch after 12 hours. baclofen (LIORESAL) 5 mg tablet TAKE 1 TABLET BY MOUTH THREE TIMES DAILY NEEDED FOR MUSCLE SPASMS. May take 1 (ONE) to 2 (TWO) TABLETS up to THREE TIMES DAILY atomoxetine (STRATTERA) 10 mg capsule Take 30 mg by mouth once daily. clopidogrel (PLAVIX) 75 mg tablet Take 1 tablet by mouth once daily. (Patient taking differently: Take 75 mg by mouth daily at bedtime. ) ramipril (ALTACE) 10 mg capsule Take 1 capsule by mouth once daily. (Patient taking differently: Take 10 mg by mouth daily at bedtime. ) LORazepam (ATIVAN) 0.5 mg Take 0.5 mg by mouth once daily as needed (anxiety). Do not start before September 09, 2021. fenofibrate (LOFIBRA) 67 mg capsule Take 1 capsule by mouth daily with breakfast. (Patient taking differently: Take 67 mg by mouth daily at bedtime. ) levothyroxine (SYNTHROID) 25 mcg tablet Take 25 mcg by mouth daily at bedtime. ASPIRIN 81 MG TAB Take by mouth daily at bedtime. (Patient taking differently: Take 81 mg by mouth daily at bedtime.) No current facility-administered medications for this visit. Patient has no known allergies. PAST MEDICAL HISTORY Diagnosis Date Alcohol abuse, episodic Anxiety Attention deficit disorder without mention of hyperactivity Class 2 severe obesity due to excess calories with serious comorbidity and body mass index (BMI) of37.0 to 37.9 in adult ([facility]) Coronary artery disease Coronary atherosclerosis of unspecified type of vessel, [place] or graft Dr. Priest Fatty liver GERD (gastroesophageal reflux disease) Hard of hearing AL (myocardial infarction) ([facility]) 2004 Pure hypercholesterolemia Status post left heart catheterization Tobacco use disorder PAST SURGICAL HISTORY Procedure Laterality Date CABG (1) VEIN GRAFT & ARTERIAL GRAFT 09/01/2021 SENA to LAD CHOLECYSTECTOMY 08/2008 COLONOSCOPY GEN ANES 2016 reportedly normal PAST SURGICAL HISTORY OF 2004 cardiac stent placement FAMILY HISTORY Problem Relation Age of Onset Diabetes Father Hypertension Father Thyroid Mother Rheumatologic disease Mother RA Stroke Mother No Known Problems Sister Diabetes Brother Diabetes Paternal Grandmother Diabetes Paternal Aunt No Known Problems Sister No Known Problems Sister Asthma Son Social History Tobacco Use Smoking status: Current Every Day Smoker Packs/day: 1.00 Years: 19.00 Pack years: 19.00 Types: Cigars, Cigarettes Last attempt to quit: 06/25/2004 Years since quittin.2 Smokeless tobacco: Never Used Tobacco comment: 1 cigar per week Vaping Use Vaping Use: Never used Substance Use Topics Alcohol use: Yes Alcohol/week: 35.0 - 52.5 standard drinks Types: 14 - 21 Cans of Beer (12oz) per week Comment: 6 beers daily Drug use: Not Currently Types: Marijuana Comment: marijuana in high school Review of Systems Constitutional: Positive for weight loss. Negative for chills, diaphoresis, fever and malaise/fatigue. Respiratory: Positive for shortness of breath. Negative for cough, hemoptysis, sputum production and wheezing. Cardiovascular: Negative for chest pain, palpitations, orthopnea, claudication, leg swelling and PND. Gastrointestinal: Negative for constipation, diarrhea, nausea and vomiting. Skin: Negative for itching and rash. Neurological: Negative for dizziness. Psychiatric/Behavioral: Negative for depression. Objective: Physical Examination: Vitals:BP 120/64 Pulse 80 Resp 16 Ht 5' 9 (1.75m) Wt 229 lb 3.2 oz (104.0kg) SpO2 99% BMI 33.83 kg/(m^2). Last 2 Encounter Wt Readings: Date: Wt: 08/27/2021 233 lb 12.8 oz (106.1 kg) 08/27/2021 240 lb (108.9 kg) Physical Exam Vitals reviewed. Constitutional: General: He is not in acute distress. Appearance: Normal appearance. HENT: Head: Normocephalic and atraumatic. Eyes: Extraocular Movements: Extraocular movements intact. Conjunctiva/sclera: Conjunctivae normal. Pupils: Pupils are equal, round, and reactive to light. Cardiovascular: Rate and Rhythm: Normal rate and regular rhythm. Pulses: Normal pulses. Heart sounds: Normal heart sounds. Pulmonary: Effort: Pulmonary effort is normal. No respiratory distress. Breath sounds: Normal breath sounds. No stridor. No wheezing, rhonchi or rales. Chest: Chest wall: Tenderness present. Abdominal: General: Bowel sounds are normal. Palpations: Abdomen is soft. Skin: General: Skin is warm. Comments: MSI Site well approximated and healing, with flaking surgical glue. CT sites x 2 with sloughing yellow eschar, mechanically debrided revealing pink moist tissue, no active drainage, no s/sxof infection. Wiped with betadine and left [employer]LET [employer]RI[employer]OR. Sternal bones stable. No s/sx of infection. Neurological: General: No focal deficit present. Mental Status: He is alert and oriented to person, place, and time. Psychiatric: Mood and Affect: Mood normal. Assessment and Plan: ASSESSMENT/PLAN: 1. S/P CABG x 1 - ICD9: V45.81, ICD10: Z95.1 (primary diagnosis) - Pt doing well overall - Continue plavix 75 mg once daily, ASA 81 mg once daily, statin, betablocker - Pain controlled; continue ERAS- discussed continueing magnesium supplements and lidocaine patchesin addition to tylenol - Continue HH diet; reinforced low NA diet and 2Liter fluid restriction, daily weight monitoring - Continue thoracic vest and sternal precautions (no lifting, pushing, pulling > 10 lbs. No driving) - Continue TEDs and BLE elevation while in bed or chair if edema returns - betadine wipes to CT sites BID, and leave [place]. Advised to call if any s/sx of infection - Continue IS, VNS, mobilization - Outpt cardiac rehab in 1 month: orders placed - Follow-up in 3 weeks with CXR prior - encouraged continued smoking cessation - Follow-up with [facility]/ in 1 month, pt encouraged to call to set up appointment 2. NSTEMI (non-ST elevated myocardial infarction) (HCC) - ICD9: 410.70, ICD10: I21.4 - continues on plavix 75 mg once daily, ASA 81 mg oral once daily, metoprolol, lipitor -hypercoaguable work up pending, pt to follow up with Dr. Montiel. Provided office number to pt/wifeand advised to call today to set up appt. 3. Coronary artery disease involving [place] coronary artery of [place] heart without angina pectoris- ICD9: 414.01, ICD10: I25.10 -- cardiac cath 08/27/21 reviewded. Mention of ectatic dilation noted in LAD and LCx. Deferred any shelter activity and lifting restrictions to general cardiology. Encouraged pt to call to set up anappointment for next 3-4 weeks 4. Essential hypertension - ICD9: 401.9, ICD10: I10 - good control - Continue current medication(s) (metoprolol 12.5 mg po q 8 hrs, altace 10 mg po daily) - Recommended regular aerobic exercise. - Recommend home blood pressure monitoring, to bring results in on next visit - Goal of BP <130/80 Ada Jimenez APRN.SANJIV documented in this encounterUniversity Hospitals Cleveland Medical Center06-01-2022 Miscellaneous Notes* Telephone Encounter - Jennifer Fulton - 09/09/2021 9:10 AM EDT PATIENT INFORMATION Record ID: [id number] Patient [facility]: [facility]: [facility] [place]: [facility] Attending: Chriss Handley Center: Thoracic & Cardiovascular Surgery [facility] INSTRUCTIONS All Clear SN to remind patient of next upcoming appointment date, time, location All Clear All Clear All Clear SURVEY INFORMATION Medical/Nurse Child Care Assistant: Jennifer Montaño 1. Your discharge instructions are important in guiding you through the recovery process. Is there anything I could help you clarify on your discharge instructions? (Standard Question) No 2. Do you have your follow up appointment related to your hospital stay scheduled within the next 30 days? (Standard Question) Yes 3. Do you have all the necessary equipment and supplies at home? (Standard Question) Yes 4. Many patients have concerns about their medications once they are home. Do you have any questions about getting or taking your medications? (Standard Question) No 5. Do you have any new or different symptoms? (Standard Question) No documented in this encounterUniversity Hospitals Cleveland Medical Center05-30-2022 Miscellaneous Notes* Telephone Encounter - BEATRICE Acuña - 09/07/2021 11:12 AM EDT Welcome Home Call: a. Date and Time: 11:12 AM 09/07/2021 b. Contact name/relationship: Spoke to pts c.Have you been active with any Home Care company in the last 60 days? No. d. Are you interesting in initiated services with [facility]? Yes (yes or no) e. Do you have any upcoming appointments in the next few days, or restrictions to your schedule? No f. We would come to see you in 24-48* from your discharge today; Are you agreeable to a visit in that time frame? Yes (Yes/ No (if no, when would you like to be seen?)) Please keep our your medications both over the counter and prescribed out for the home care to review, your hospital discharge instructions and write down any questions you might have. Our clinicians will call you the night before or the morning of the appointment. Their # may come up restricted but they'll leave a VM for you. In case you have any questions or concerns in the meantime, our # is [phone], option 1 (need to confirm) Thank you for your time and have a great day. BEATRICE Acuña documented in this encounterUniversity Hospitals Cleveland Medical Center05-20-2022 Miscellaneous Notes* Telephone Encounter - SANJUANA Elizabeth - 08/28/2021 3:29 PM EDT Welcome Home Call: a. Date and Time: 3:29 PM 08/28/2021 b. Contact name/relationship: Attempted to contact patient at [phone] no vm left message with spouse on her phone [phone] SANJUANA Elizabeth documented in this encounterUniversity Hospitals Cleveland [facility] Center05-19-2022 Miscellaneous Notes* Telephone Encounter - Samira Lama LPN - 08/27/2021 3:27 PM EDT Patient's request for medication is as follows: Refused Prescriptions Disp Refills clopidogrel (PLAVIX) 75 mg tablet [Pharmacy Med Name: clopidogrel 75 mg tablet] 30 tablet 0 Sig: Take 1 tablet by mouth once daily. JANA: No Refused By: SAMIRA LAMA Reason for Refusal: A Refill not appropriate Reason for Refusal Comment: Currently in patient. Will await discharge orders. fenofibrate (LOFIBRA) 67 mg capsule [Pharmacy Med Name: fenofibrate micronized 67 mg capsule] 30 capsule 0 Sig: Take 1 capsule by mouth daily with breakfast. JANA: No Refused By: SAMIRA LAMA Reason for Refusal: A Refill not appropriate Reason for Refusal Comment: Currently in patient. Will await discharge orders. Prescription(s) as above. Please process accordingly. Samira Lama LPN documented in this encounterUniversity Hospitals Cleveland Medical Center05-17-2022 Miscellaneous Notes* Telephone Encounter - Sirisha Goodman LPN - 08/25/2021 8:45 AM EDT Attempted to call pt with test results but was unable to leave voicemail. Sirisha Goodman LPN * Telephone Encounter - Sirisha Goodman LPN - 08/25/2021 8:45 AM EDT ----- Message from Man Mayer MD sent at 08/24/2021 4:51 PM EDT ----- TG have improved drastically! LDL is above goal. If agreeable, pls add Zetia 10 mg daily ( 30 day supple to his pharmacy with 3 refills) documented in this encounterUniversity Hospitals Cleveland Medical Center05-17-2022 Miscellaneous Notes* Telephone Encounter - Sirisha Goodman LPN - 08/25/2021 8:44 AM EDT Attempted to call pt with test results but was unable to leave voicemail. Sirisha Goodman LPN * Telephone Encounter - Sirisha Goodman LPN - 08/25/2021 8:41 AM EDT ----- Message from Man Mayer MD sent at 08/24/2021 4:51 PM EDT ----- TG have improved drastically! LDL is above goal. If agreeable, pls add Zetia 10 mg daily ( 30 day supple to his pharmacy with 3 refills) documented in this encounterUniversity Hospitals Cleveland Medical Center04-07-2022 Instructions* Patient Instructions* Man Mayer MD - 07/16/2021 9:23 AM EDT Images from the original note were not included. Coronary Artery Disease View image View image What is coronary artery disease? Coronary artery disease (CAD) is a type of heart disease caused by a problem with the blood vesselsthat bring blood and oxygen to the heart muscle. These arteries are called the coronary arteries. This disease increases your risk for heart attack and sudden . What is the cause? Fatty deposits called plaque may build up in blood vessels and make them narrower. The narrowing decreases the amount of blood flow to the heart. Plaque also increases the chance that blood clots mayform and block a blood vessel, which can cause a heart attack or stroke. Your risk for CAD may be higher if you: Have a family history of coronary artery disease at an early age Smoke Have high blood pressure Have diabetes Are very overweight Don t get enough exercise Have high levels of blood fat--for example, high cholesterol What are the symptoms? Coronary artery disease may not cause any symptoms. When there are symptoms, the most common one ischest pain, called angina. You may feel: A feeling of tightness or heaviness in the chest Squeezing, pressure, or burning in the chest Angina symptoms usually: Last for 5 minutes or less and go away with rest or medicine such as nitroglycerin. Happen when the heart has to work harder, such as after a heavy meal or during physical activity oremotional stress. Angina may also happen when you are resting. Call 911 for emergency help right away if you have symptoms of a heart attack. The most common symptoms include: Chest pain or pressure, squeezing, or fullness in the center of your chest that lasts more than a few minutes, or goes away and comes back (may feel like indigestion or heartburn) Pain or discomfort in one or both arms or shoulders, or in your back, neck, jaw, or stomach Trouble breathing Breaking out in a cold sweat for no known reason If your provider has prescribed nitroglycerin for angina, pain that does not go away after taking your nitroglycerin as directed Along with these symptoms, you may also feel very tired, faint, or be sick to your stomach. How is it diagnosed? Your healthcare provider will ask about your symptoms and medical history and examine you. Tests may include: Blood tests An ECG (also called an EKG or electrocardiogram), which measures and records your heartbeat. An exercise treadmill test to see how your heart works when you exercise An echocardiogram, which uses sound waves (ultrasound) to see how well your heart is pumping Angiogram, which is a series of X-rays taken after your healthcare provider injects a special dye into your blood vessels to show the plascencia of the arteries and any blockage CT scan, which uses X-rays and a computer to show detailed pictures of the arteries How is it treated? Your treatment depends on many factors, such as your age, heart muscle function, and other health problems. At first, treatment may include diet changes and an exercise program. Your healthcare provider may prescribe medicine. Many people need to take 2 or more medicines to help prevent a heart attack or stroke. It may take several weeks or months to find the best treatment for you. Your provider may also prescribe other types of medicine to lower blood pressure, help stop chest pain, control an irregular heartbeat, help prevent blood clots, or lower blood fat (cholesterol). Your provider may recommend a daily low dose of aspirin. Taking an aspirin every day may lower yourrisk for a heart attack or stroke. Not everyone should take aspirin. Daily use of aspirin can causeproblems, such as stomach irritation, bleeding, and hearing loss. Ask your healthcare provider if you should take aspirin and if so, how much to take. If your coronary arteries are badly blocked, you may need balloon angioplasty or bypass surgery. A balloon angioplasty opens blocked blood vessels and improves blood flow. A metal mesh device called a stent is usually left in the blood vessels to help keep them open. Bypass surgery uses blood vessels from other parts of the body, or manmade material, to make a new path around a blocked area. How can I take care of myself? If you have coronary artery disease, there are things you can do to take care of yourself now and prevent problems in the future. Follow your provider's advice about activity, exercise, medicine, and follow-up visits. Lower the amount of salt, saturated and trans fats, and cholesterol in your diet. Work with your healthcare provider to control diabetes, blood pressure, or other health problems you may have. Try to keep a healthy weight. If you are overweight, talk to your provider about ways to lose weight. If you smoke, try to quit. Talk to your healthcare provider about ways to quit smoking. Ask your healthcare provider: o How and when you will hear your test results o How long it will take to recover o What activities you should avoid and when you can return to your normal activities o How to take care of yourself at home o What symptoms or problems you should watch for and what to do if you have them Make sure you know when you should come back for a checkup. How can I help prevent coronary artery disease? You can prevent this disease with a heart-healthy lifestyle: Eat a healthy diet and keep a healthy weight. Stay fit with the right kind of exercise for you. Find ways to manage stress. Don t smoke. Limit your use of alcohol. Talk to your healthcare provider about your personal and family medical history and your lifestyle habits. This will help you know what you can do to lower your risk for coronary artery disease. If you have a strong family history of CAD, a healthy lifestyle may slow the start of the disease and maybe even keep you from getting it. However, you must have regular checkups to keep a close watch on the health of your heart. Developed by [employer]. Published by [employer]. Copyright 2014 [employer] and/or one of its subsidiaries. All rights reserved. documented in this encounterUniversity Hospitals Cleveland Medical Center04-07-2022 History of Present illness Narrative* Man Mayer MD - 07/16/2021 9:00 AM EDT PRIMARY CARE PHYSICIAN: Jordyn Beltran ([facility]) [address] [address] CHIEF COMPLAINT: Patient presents with: Follow Up: hospital f/u post heart cath HPI: I had initially seen Mr Andrade when he was admitted to [facility] in 06/02 withchest pain. He has a prior history of coronary artery disease and is status post stenting of the left anterior descending artery in 2004. He also has a history of hypertension, hyperlipidemia, smoking. During his hospital stay, he was diagnosed with a non-STEMI, and his troponins peaked at 2328 ng/L. He underwent coronary angiography, which revealed that his left main artery was normal. The left anterior descending artery had a widely patent stent with ectasia in the mid vessel. The first diagonal artery had a thrombotic occlusion without evidence of ruptured plaque. He underwent mechanical thromobectomy of the thrombus in first diagonal branch of the LAD with catholic of blood flow, no residual stenosis was noted. The circumflex and the right coronary arteries had mild diffuse disease. His lipid panel during the hospital stay revealed significantly elevated triglycerides of greater than 800 mg percent. He was started on fenofibrate. His echocardiogram during the hospital stay (on 06/09/21) revealed an LV ejection fraction of 66%, grade 1 diastolic dysfunction, mildly dilated rightventricle with normal systolic function. No significant valvular abnormalities were evident. He returns for a follow-up visit today. He feels well in general, but does admit to some soreness in the chest area. 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 He is not certain if the chest/arm soreness is secondary to Lipitor. He has been taking Fenofibrate regularly since discharge. He used a smoke 2 cigars a day, and has now cut down to one a week. PAST MEDICAL HISTORY Diagnosis Date Alcohol abuse, episodic Anxiety Attention deficit disorder without mention of hyperactivity Class 2 severe obesity due to excess calories with serious comorbidity and body mass index (BMI) of37.0 to 37.9 in adult ([facility]) Coronary artery disease Coronary atherosclerosis of unspecified type of vessel, [place] or graft Dr. Priest Fatty liver GERD (gastroesophageal reflux disease) Hard of hearing AL (myocardial infarction) ([facility]) 2004 Pure hypercholesterolemia Status post left heart catheterization Tobacco use disorder PAST SURGICAL HISTORY Procedure Laterality Date CHOLECYSTECTOMY 08/2008 COLONOSCOPY GEN ANES 2016 reportedly normal PAST SURGICAL HISTORY OF 2004 cardiac stent placement SOCIAL HISTORY: Social History Tobacco Use Smoking status: Current Every Day Smoker Packs/day: 1.00 Years: 19.00 Pack years: 19.00 Types: Cigars, Cigarettes Last attempt to quit: 06/25/2004 Years since quittin.0 Smokeless tobacco: Never Used Tobacco comment: 1 cigar per week Vaping Use Vaping Use: Never used Substance Use Topics Alcohol use: Yes Alcohol/week: 35.0 - 52.5 standard drinks Types: 14 - 21 Cans of Beer (12oz) per week Comment: 2-3 beers daily Drug use: Not Currently Types: Marijuana Comment: marijuana in high school FAMILY HISTORY Problem Relation Age of Onset Diabetes Father Hypertension Father Thyroid Mother Rheumatologic disease Mother RA Stroke Mother No Known Problems Sister Diabetes Brother Diabetes Paternal Grandmother Diabetes Paternal Aunt No Known Problems Sister No Known Problems Sister Asthma Son ALLERGIES: ALLERGIES No Known Allergies MEDICATIONS: clopidogrel (PLAVIX) 75 mg tablet Take 1 tablet by mouth once daily. atorvastatin (LIPITOR) 80 mg tablet Take 1 tablet by mouth once daily. ramipril (ALTACE) 10 mg capsule Take 1 capsule by mouth once daily. metoprolol succinate ER (TOPROL XL) 50 mg 24 hr tablet Take 1 tablet by mouth once daily. LORazepam (ATIVAN) 0.5 mg Take 0.5 mg by mouth once daily as needed. fenofibrate (LOFIBRA) 67 mg capsule Take 1 capsule by mouth daily with breakfast. nitroglycerin sublingual (NITROQUICK) 0.4 mg SL tablet Dissolve 1 tablet under the tongue every 5 minutes as needed for chest pain. levothyroxine (SYNTHROID) 25 mcg tablet Take 25 mcg by mouth daily before breakfast. multivitamin tablet Take 1 tablet by mouth once daily. omeprazole (PRILOSEC) 20 mg capsule Take 20 mg by mouth once daily. ASPIRIN 81 MG TAB Take one(1) tablet daily. Coenzyme Q10 200 mg cap Take 1 capsule by mouth once daily. atorvastatin (LIPITOR) 40 mg tablet Take 40 mg by mouth once daily. REVIEW OF SYSTEMS: GENERAL: Negative for:Weight loss and Weight gain HEENT: Negative for:Nosebleeds RESPIRATORY: Negative for:Shortness of breath GASTROINTESTINAL: Negative for:Blood in stool MUSCULOSKELETAL: Negtive for: Muscle or joint pain, stiffness, Joint swelling SKIN: No rash HEMATOLOGICAL/LYMPHATIC: Negative for: Easy bruising and Easy bleeding CARDIOVASCULAR: As stated in HPI. otherwise normal. PHYSICAL EXAMINATION: BP 128/78 Pulse 77 Temp 36 C (96.8 F) (Temporal) Resp 12 Ht 5' 9 (1.753 m) Wt 260 lb (117.9 kg) SpO2 96% BMI 38.40 kg/m Physical exam listed below was completed in entirety today (07/16/2021 ) and is unchanged from my last note except where noted General: Well appearing, in no acute distress, speaking in complete sentences., Well appearing. Skin: No rash, bruising Oropharynx: Mucous membranes normal Neck: no jugular venous distention,, no carotid bruits, Lungs: Clear to auscultation bilaterally, no wheezing or rhonchi. Heart: S1, S2 normal, no murmur Extremities: No peripheral edema Neuro: Grossly nonfocal ASSESSMENT/PLAN: 1. Coronary artery disease involving [place] coronary artery of [place] heart without angina pectoris- ICD9: 414.01, ICD10: I25.10 (primary diagnosis) SP PCI-LAD in 2004. Continue ASA, Lipitor, Plavix, Ramipril, Metoprolol. Strongly counseled him to quit smoking. 2. Essential hypertension - ICD9: 401.9, ICD10: I10 - good control on Metoprolol, Ramipril - Recommended regular aerobic exercise. - Recommend home blood pressure monitoring, to bring results in on next visit - Goal of BP <130/80 - RAMIPRIL 10 MG CAPSULE 3. Class 2 severe obesity due to excess calories with serious comorbidity and body mass index (BMI)of 37.0 to 37.9 in adult (HCC) - ICD9: 278.01, V85.37, ICD10: E66.01, Z68.37 Stable - Behavioral intervention 4. Hyperlipidemia - ICD 10: E 78.3 Continue Lipitor, fenofibrate. Check a lipid panel. Man Mayer MD The above note was partially created using a dictation recognition software. A reasonable attempt has been made to correct any errors. documented in this encounterUniversity Hospitals Cleveland Medical Center04-01-2022 Miscellaneous Notes* SN Routine - July ENRICO Lewis - 09/16/2021 4:46 PM EDT SITUATION: [facility] routine visit completed today. spouse also present during today's visit. patient reports the following:Pt states he has had dizziness off and on at times throuhout the day but today he has dizziness all day. BP was elevated upon arrival 140/96, within several minutes BP came down to 120/76. Pt also states since stopping pain medication he has had sharp L sided chest pain that lasts several minutes then subsides, pt denies that activity or rest makes a difference. Allergies--reviewed Medications--reviewed current medications Falls--None DME-NONE BACKGROUND: Reason for Home Care: Atypical chest pain Elevated troponin NSTEMI (non-ST elevated myocardial infarction) ASSESSMENT: SN greeted at door by patient no DME and demonstrates stable gait. Patient appears in no acute distress. Vitals (see flow sheet for details): WDL except: Blood Pressure: elevated upon arrival but did return to normal after several minutes. Pt c/o dizziness today that started after walking 1 mile and haslasted all day. Pt also stated after his walk today he was short of breath which had not happened before, but did resolves after several minuts of rest. Pt c/o L sided chest 1-2 times a day since stopping pain medication that lasts 2-3 minutes. SN called 's office which was closed, answering service paged to report symptoms. returned the call, doctor states for pt to call their office in the morning and they can see him and if symptoms worsen or persist to go to ER for eval. SN called and spoke to pt and informed of doctors advise. Pt voiced understanding. See intervention summary for education details. Patient demonstrated a need for further skilled SN services for chronic disease management & education. Current Discharge plan: family support RECOMMENDATION: Next visit to focus on (be specific): cp assessment documented in this encounterUniversity Hospitals Cleveland Medical Center04-01-2022 Miscellaneous Notes* SN Routine - Salome Lewis RN - 09/23/2021 12:21 PM EDT SITUATION: [facility] routine visit completed today. spouse also present during today's visit. Allergies--reviewed Medications--reviewed current medications Falls--None DME-NONE BACKGROUND: Reason for Home Care: NSTEMI (non-ST elevated myocardial infarction) (HCC) CABG x 1 (SENA to LAD) with RONNIE on 09/01 ASSESSMENT: SN greeted at door by patient no DME and demonstrates stable gait. Patient appears in no acute distress. Patient/CG concerns verbalized today: Pt states he is feeling good and has not any further episodesof dizziness since last sn visit. Vitals (see flow sheet for details): stable SN findings today: Pt states he went to surgeon last week after sn visit. Pt reports no changes to medications. Pt denies any further dizziness. Pt is monitoring BP several times a day, pt states BP has been running 130/80 to 100/60. Pain is controlled with Tylenol. All incisions healing without com plications. See intervention summary for education details. Patient demonstrated a need for further skilled SN services for chronic disease management & education. Current Discharge plan: family support RECOMMENDATION: Next visit to focus on (be specific): cp assessment documented in this encounterUniversity Hospitals Cleveland Medical Center04-01-2022 Miscellaneous Notes* Telephone Encounter - Salome Lewis RN - 09/30/2021 5:[address] Beck, Pt was discharged from home care services today with goals met. Both drain sites continue to be seperated. The LUQ site had some alanis slough noted, no drainage, no s/s infection. SN cleaned the site with soap and water and most of the slough came off. Pt is applying Betadine daily as instructed by your VIDEO PRODUCTION ASSISTANT. S/S infection were reinforced. Thank you documented in this encounterUniversity Hospitals Cleveland Medical Center04-01-2022 Miscellaneous Notes* SN Agency DC - Salome Lewis RN - 09/30/2021 3:06 PM EDT SITUATION: [facility] agency discharge visit completed today. Allergies--reviewed Medications--reviewed current medications Falls--None BACKGROUND: Reason for Home Care: Atypical chest pain Elevated troponin NSTEMI (non-ST elevated myocardial infarction) CABG x 1 (SENA to LAD) with RONNIE on 09/01 ASSESSMENT: SN greeted at door by patient no DME and demonstrates stable gait. Patient appears in no acute distress. Patient/CG concerns verbalized today: none voiced Vitals (see flow sheet for details): stable SN findings today: SN findings today: Pt ambulating independently. Pt denies any shortness of breath. Pt states he continues to have soreness in sternum when moving arms, pt is taking 1000mg Tylenol daily. . Pt denies any dizziness or lightheadedness. Pt is contiuing walking program. Sternal incision healing without complication. Drain sites continue to be seperated, pt is applying betadine per VIDEO PRODUCTION ASSISTANT orders to drain sites. No drainage noted. SN reinforced s/s infection; redness, warmth, drainage pain, swelling, fever/chills. BP has been stable and WNL, pt monitoring daily. Pt is no longer homebound and requesting d/c . See intervention summary for education details and any skills performed. Specific SN discharge instructions: Monitor incisions for s/s infection;fever/chills, redness, warmth, yellow/green drainage drainage, foul smell, swelling. Continue to follow post op precautions until cleared by surgeon. Patient encouraged to take all medication as ordered, eat a well-balanced diet and follow up with all physician appointments. NOMNC: patient requested discharge today Discharged due to Goals met. Patient discharged from Home Care to: family support RECOMMENDATION: Additional follow ups recommended: None Patient to follow up with Dr. Beck for additional medical questions/concerns. documented in this encounterUniversity Hospitals Cleveland Medical Center02-28-2022 History of Past illness Narrative* Problem Noted Date Resolved Date NSTEMI (non-ST elevated myocardial infarction) 0 06/08/2021 06/09/2021 documented as of this encounter (statuses as of 07/16/2021) [address]22 History of Past illness Narrative* Problem Noted Date Resolved Date NSTEMI (non-ST elevated myocardial infarction) 0 06/08/2021 06/09/2021 documented as of this encounter (statuses as of 08/25/2021) [address]28-[address]22 History of Past illness Narrative* Problem Noted Date Resolved Date NSTEMI (non-ST elevated myocardial infarction) 0 06/08/2021 06/09/2021 documented as of this encounter (statuses as of 08/27/2021) [address]28-[address]22 History of Past illness Narrative* Problem Noted Date Resolved Date NSTEMI (non-ST elevated myocardial infarction) 0 06/08/2021 06/09/2021 documented as of this encounter (statuses as of 08/28/2021) [address]28-[address]22 History of Past illness Narrative* Problem Noted Date Resolved Date NSTEMI (non-ST elevated myocardial infarction) 0 06/08/2021 06/09/2021 documented as of this encounter (statuses as of 09/07/2021) [address] History of Past illness Narrative* Problem Noted Date Resolved Date NSTEMI (non-ST elevated myocardial infarction) 0 06/08/2021 06/09/2021 documented as of this encounter (statuses as of 09/09/2021) [address] History of Past illness Narrative* Problem Noted Date Resolved Date NSTEMI (non-ST elevated myocardial infarction) 0 06/08/2021 06/09/2021 documented as of this encounter (statuses as of 09/14/2021) [address] History of Past illness Narrative* Problem Noted Date Resolved Date NSTEMI (non-ST elevated myocardial infarction) 0 06/08/2021 06/09/2021 documented as of this encounter (statuses as of 09/15/2021) [address] History of Past illness Narrative* Problem Noted Date Resolved Date NSTEMI (non-ST elevated myocardial infarction) 0 06/08/2021 06/09/2021 documented as of this encounter (statuses as of 09/16/2021) [address] History of Past illness Narrative* Problem Noted Date Resolved Date NSTEMI (non-ST elevated myocardial infarction) 0 06/08/2021 06/09/2021 documented as of this encounter (statuses as of 09/17/2021) [address] History of Past illness Narrative* Problem Noted Date Resolved Date NSTEMI (non-ST elevated myocardial infarction) 0 06/08/2021 06/09/2021 documented as of this encounter (statuses as of 09/23/2021) [address] History of Past illness Narrative* Problem Noted Date Resolved Date NSTEMI (non-ST elevated myocardial infarction) 0 06/08/2021 06/09/2021 documented as of this encounter (statuses as of 09/24/2021) [address]22 History of Past illness Narrative* Problem Noted Date Resolved Date NSTEMI (non-ST elevated myocardial infarction) 0 06/08/2021 06/09/2021 documented as of this encounter (statuses as of 09/30/2021) [place] [address] History of Past illness Narrative* Problem Noted Date Resolved Date NSTEMI (non-ST elevated myocardial infarction) 0 06/08/2021 06/09/2021 documented as of this encounter (statuses as of 09/30/2021) [address]-[address]22 History of Past illness Narrative* Problem Noted Date Resolved Date NSTEMI (non-ST elevated myocardial infarction) 0 06/08/2021 06/09/2021 documented as of this encounter (statuses as of 10/06/2021) [address]-[address]22 History of Past illness Narrative* Problem Noted Date Resolved Date NSTEMI (non-ST elevated myocardial infarction) 0 06/08/2021 06/09/2021 documented as of this encounter (statuses as of 10/07/2021) [address]-[address]22 History of Past illness Narrative* Problem Noted Date Resolved Date NSTEMI (non-ST elevated myocardial infarction) 0 06/08/2021 06/09/2021 documented as of this encounter (statuses as of 10/09/2021) [place] [address] History of Past illness Narrative* Problem Noted Date Resolved Date NSTEMI (non-ST elevated myocardial infarction) 0 06/08/2021 06/09/2021 documented as of this encounter (statuses as of 10/13/2021) [address]-[address]22 History of Past illness Narrative* Problem Noted Date Resolved Date NSTEMI (non-ST elevated myocardial infarction) 0 06/08/2021 06/09/2021 documented as of this encounter (statuses as of 2021) [place] [address] History of Past illness Narrative* Problem Noted Date Resolved Date NSTEMI (non-ST elevated myocardial infarction) 0 06/08/2021 06/09/2021 documented as of this encounter (statuses as of 10/16/2021) [place] [address] History of Past illness Narrative* Problem Noted Date Resolved Date NSTEMI (non-ST elevated myocardial infarction) 0 06/08/2021 06/09/2021 documented as of this encounter (statuses as of 10/19/2021) [place] [address] History of Past illness Narrative* Problem Noted Date Resolved Date NSTEMI (non-ST elevated myocardial infarction) 0 06/08/2021 06/09/2021 documented as of this encounter (statuses as of 10/21/2021) [address]-[address]22 History of Past illness Narrative* Problem Noted Date Resolved Date NSTEMI (non-ST elevated myocardial infarction) 0 06/08/2021 06/09/2021 documented as of this encounter (statuses as of 10/23/2021) [address]-[address]22 History of Past illness Narrative* Problem Noted Date Resolved Date NSTEMI (non-ST elevated myocardial infarction) 0 06/08/2021 06/09/2021 documented as of this encounter (statuses as of 10/23/2021) [address]-[address]22 History of Past illness Narrative* Problem Noted Date Resolved Date NSTEMI (non-ST elevated myocardial infarction) 0 06/08/2021 06/09/2021 documented as of this encounter (statuses as of 10/23/2021) [address]-[address]22 History of Past illness Narrative* Problem Noted Date Resolved Date NSTEMI (non-ST elevated myocardial infarction) 0 06/08/2021 06/09/2021 documented as of this encounter (statuses as of 10/28/2021) [address]-[address]22 History of Past illness Narrative* Problem Noted Date Resolved Date NSTEMI (non-ST elevated myocardial infarction) 0 06/08/2021 06/09/2021 documented as of this encounter (statuses as of 10/30/2021) [address]-[address]22 History of Past illness Narrative* Problem Noted Date Resolved Date NSTEMI (non-ST elevated myocardial infarction) 0 06/08/2021 06/09/2021 documented as of this encounter (statuses as of 11/03/2021) [address]-[address]22 History of Past illness Narrative* Problem Noted Date Resolved Date NSTEMI (non-ST elevated myocardial infarction) 0 06/08/2021 06/09/2021 documented as of this encounter (statuses as of 11/03/2021) [address]-[address]22 History of Past illness Narrative* Problem Noted Date Resolved Date NSTEMI (non-ST elevated myocardial infarction) 0 06/08/2021 06/09/2021 documented as of this encounter (statuses as of 11/04/2021) [facility]02-28-2022 History of Past illness Narrative* Problem Noted Date Resolved Date NSTEMI (non-ST elevated myocardial infarction) 0 06/08/2021 06/09/2021 documented as of this encounter (statuses as of 11/09/2021) [facility]02-28-2022 History of Past illness Narrative* Problem Noted Date Resolved Date NSTEMI (non-ST elevated myocardial infarction) 0 06/08/2021 06/09/2021 documented as of this encounter (statuses as of 11/11/2021) [facility]-28-2022 History of Past illness Narrative* Problem Noted Date Resolved Date NSTEMI (non-ST elevated myocardial infarction) 0 06/08/2021 06/09/2021 documented as of this encounter (statuses as of 11/12/2021) [facility] note* Diagnosis Coronary artery disease involving [place] coronary artery of [place] heart without angina pectoris- Primary Essential hypertension Unspecified essential hypertension Class 2 severe obesity due to excess calories with serious comorbidity and body mass index (BMI) of 37.0 to 37.9 in adult ([facility]) [facility] Diagnosis S/P CABG x 1- Primary Postsurgical aortocoronary bypass status NSTEMI (non-ST elevated myocardial infarction) ([facility]) Acute myocardial infarction, subendocardial infarction, episode of care unspecified Coronary artery disease involving [place] coronary artery of [place] heart without angina pectoris Essential hypertension Unspecified essential hypertension [facility]* Diagnosis Postoperative visit- Primary Other specified aftercare following surgery [facility] Diagnosis Coronary artery disease involving [place] coronary artery of [place] heart without angina pectoris- Primary Thrombophilia ([facility]) Primary hypercoagulable state [facility] Diagnosis S/P CABG (coronary artery bypass graft) Postsurgical aortocoronary bypass status [facility] Diagnosis S/P CABG (coronary artery bypass graft) Postsurgical aortocoronary bypass status [facility] Diagnosis S/P CABG x 1- Primary Postsurgical aortocoronary bypass status NSTEMI (non-ST elevated myocardial infarction) ([facility]) Acute myocardial infarction, subendocardial infarction, episode of care unspecified Coronary artery disease involving [place] coronary artery of [place] heart without angina pectoris Essential hypertension Unspecified essential hypertension [facility]* Diagnosis S/P CABG x 1 Postsurgical aortocoronary bypass status documented in this encounter [facility] note* Diagnosis S/P CABG (coronary artery bypass graft) Postsurgical aortocoronary bypass status [facility]* Diagnosis S/P CABG (coronary artery bypass graft) Postsurgical aortocoronary bypass status [facility]* Diagnosis S/P CABG (coronary artery bypass graft) Postsurgical aortocoronary bypass status [facility]* Diagnosis S/P CABG (coronary artery bypass graft) Postsurgical aortocoronary bypass status documented in this encounter [facility] note* Diagnosis Coronary artery disease involving [place] coronary artery of [place] heart without angina pectoris- Primary Essential hypertension Unspecified essential hypertension Mixed hyperlipidemia S/P CABG x 1 Postsurgical aortocoronary bypass status Class 2 severe obesity due to excess calories with serious comorbidity and body mass index (BMI) of 37.0 to 37.9 in adult ([facility]) Tobacco use disorder documented in this encounter [facility] note* Diagnosis S/P CABG (coronary artery bypass graft) Postsurgical aortocoronary bypass status [facility]* Diagnosis S/P CABG (coronary artery bypass graft) Postsurgical aortocoronary bypass status documented in this encounter [facility] note* Diagnosis Pure hypercholesterolemia- Primary [facility]* Diagnosis S/P CABG (coronary artery bypass graft) Postsurgical aortocoronary bypass status [facility]* Diagnosis S/P CABG (coronary artery bypass graft) Postsurgical aortocoronary bypass status [facility]* Diagnosis S/P CABG (coronary artery bypass graft)- Primary Postsurgical aortocoronary bypass status [facility]* Diagnosis S/P CABG (coronary artery bypass graft)- Primary Postsurgical aortocoronary bypass status [facility]* Diagnosis S/P CABG (coronary artery bypass graft)- Primary Postsurgical aortocoronary bypass status [facility]* Diagnosis S/P CABG (coronary artery bypass graft)- Primary Postsurgical aortocoronary bypass status [facility]* Diagnosis Coronary artery disease involving [place] coronary artery of [place] heart without angina pectoris- Primary Thrombophilia (HCC) Primary hypercoagulable state [facility]* Diagnosis S/P CABG (coronary artery bypass graft)- Primary Postsurgical aortocoronary bypass status [facility]* Diagnosis Coronary artery disease involving [place] coronary artery of [place] heart without angina pectoris- Primary Essential hypertension Unspecified essential hypertension Pure hypercholesterolemia Tobacco use disorder [facility]* Diagnosis Onset Date Resolution Status Poison meliza dermatitis acute Pruritic dermatitis acute Anxiety acute 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 Poison meliza dermatitis acute Pruritic dermatitis acute Hyperlipidemia LDL goal <130 chronic Hypertension chronic Hypothyroid acute Hyperlipidemia LDL goal <130 chronic Hypertension [facility] Work Phone: Evaluation note* Diagnosis Acute pain of left shoulder- Primary [facility] Diagnosis Strain of tendon of left rotator cuff, initial encounter- Primary [facility]* Diagnosis Strain of tendon of left rotator cuff, initial encounter [facility] Diagnosis Coronary artery disease involving [place] coronary artery of [place] heart without angina pectoris- Primary Essential hypertension Unspecified essential hypertension Pure hypercholesterolemia Tobacco use disorder [facility]* Diagnosis Coronary artery disease involving [place] coronary artery of [place] heart without angina pectoris- Primary Essential hypertension Unspecified essential hypertension Pure hypercholesterolemia Tobacco use disorder [facility] Name Dates Details How to access [employer] Indication:Cigar smoker Start:07-Aug-2019 Instruction Type:Patient Education How to access [employer] online - Detail Indication:Cigar smoker Start:07-Aug-2019 Instruction Type:Patient Education Patient Instructions Indication:Cigar smoker Start:07-Aug-2019 Instruction Type:Provider Instructions for Treatment How to access health informa tion online Indication:BMI 36.0-36.9,adult Start:18-Jun-2019 Instruction Type:Patient Education How to access health informa tion online - Detail Indication:BMI 36.0-36.9,adult Start:18-Jun-2019 Instruction Type:Patient Education Patient Instructions Indication:BMI 36.0-36.9,adult Start:18-Jun-2019 Instruction Type:Provider Instructions for Treatment How to access health informa tion online Indication:Nonsmoker Start:18-May-2019 Instruction Type:Patient Education How to access health informa tion online - Detail Indication:Nonsmoker Start:18-May-2019 Instruction Type:Patient Education Patient Instructions Indication:Nonsmoker Start:18-May-2019 Instruction Type:Provider Instructions for Treatment How to access health informa tion online Indication:BMI 36.0-36.9,adult Start:15-May-2019 Instruction Type:Patient Education How to access health informa tion online - Detail Indication:BMI 36.0-36.9,adult Start:15-May-2019 Instruction Type:Patient Education Patient Instructions Indication:BMI 36.0-36.9,adult Start:15-May-2019 Instruction Type:Provider Instructions for Treatment How to access health informa tion online Indication:Cigar smoker Start:04-Aug-2018 Instruction Type:Patient Education How to access health informa tion online - Detail Indication:Cigar smoker Start:04-Aug-2018 Instruction Type:Patient Education Patient Instructions Indication:BMI 33.0-33.9,adult Start:04-Aug-2018 Instruction Type:Provider Instructions for Treatment How to access health informa tion online Indication:Cigar smoker Start:10-Jul-2018 Instruction Type:Patient Education How to access health informa tion online - Detail Indication:Cigar smoker Start:10-Jul-2018 Instruction Type:Patient Education Patient Instructions Indication:Persistent headaches Start:10-Jul-2018 Instruction Type:Provider Instructions for Treatment How to access health informa tion online Indication:BMI 36.0-36.9,adult Start:25-Apr-2018 Instruction Type:Patient Education How to access health informa tion online - Detail Indication:BMI 36.0-36.9,adult Start:25-Apr-2018 Instruction Type:Patient Education Patient Instructions Indication:BMI 36.0-36.9,adult Start:25-Apr-2018 Instruction Type:Provider Instructions for Treatment How to access health informa tion online Indication:Attention deficit Start:10-Apr-2018 Instruction Type:Patient Education How to access health informa tion online - Detail Indication:Attention deficit Start:10-Apr-2018 Instruction Type:Patient Education Patient Instructions Indication:Attention deficit Start:10-Apr-2018 Instruction Type:Provider Instructions for Treatment How to access health informa tion online Indication:BMI 35.0-35.9,adult Start:02-Jan-2018 Instruction Type:Patient Education How to access health informa tion online - Detail Indication:BMI 35.0-35.9,adult Start:02-Jan-2018 Instruction Type:Patient Education Patient Instructions Indication:Elevated blood pressure reading Start:02-Jan-2018 Instruction Type:Provider Instructions for Treatment How to access health informa tion online Indication:Current smoker Start:23-Nov-2017 Instruction Type:Patient Education Patient Instructions Indication:Current smoker Start:23-Nov-2017 Instruction Type:Provider Instructions for Treatment How to access health informa tion online Indication:Impaired fasting glucose Start:06-Sep-2017 Instruction Type:Patient Education How to access health informa tion online - Detail Indication:Impaired fasting glucose Start:06-Sep-2017 Instruction Type:Patient Education Patient Instructions Indication:Anxiety Start:06-Sep-2017 Instruction Type:Provider Instructions for Treatment How to access health informa tion online Indication:Elevated liver enzymes Start:07-Jun-2017 Instruction Type:Patient Education How to access health informa tion online - Detail Indication:Elevated liver enzymes Start:07-Jun-2017 Instruction Type:Patient Education Patient Instructions Indication:Screening for prostate cancer Start:07-Jun-2017 Instruction Type:Provider Instructions for Treatment How to access health informa tion online Indication:BMI 34.0-34.9,adult Start:21-Dec-2016 Instruction Type:Patient Education How to access health informa tion online - Detail Indication:BMI 34.0-34.9,adult Start:21-Dec-2016 Instruction Type:Patient Education Patient Instructions Indication:BMI 34.0-34.9,adult Start:21-Dec-2016 Instruction Type:Provider Instructions for Treatment How to access health informa tion online Indication:Cough Start:19-Nov-2016 Instruction Type:Patient Education How to access health informa tion online - Detail Indication:Cough Start:19-Nov-2016 Instruction Type:Patient Education Patient Instructions Indication:Cough Start:19-Nov-2016 Instruction Type:Provider Instructions for Treatment DISCONTINUED - METABOLIC LOPEZ EL, COMPREHENSIVE (18515) Indication:ALT (SGPT) level raised Start:03-Nov-2016 Instruction Type:Patient Education DISCONTINUED - LIPID PANEL ( [id number]) Indication:Benign essential hypertension (Renamed from Benign essential HTN) Start:03-Nov-2016 Instruction Type:Patient Education DISCONTINUED - METABOLIC LOPEZ EL, COMPREHENSIVE ([id number]) Indication:Benign essential hypertension (Renamed from Benign essential HTN) Start:03-Nov-2016 Instruction Type:Patient Education DISCONTINUED - HEPATIC FUNCT ION PANEL ([id number]) Indication:Hypercholesterolemia Start:03-Nov-2016 Instruction Type:Patient Education How to access health informa tion online Indication:Cough Start:03-Nov-2016 Instruction Type:Patient Education How to access health informa tion online - Detail Indication:Cough Start:03-Nov-2016 Instruction Type:Patient Education Patient Instructions Indication:Cough Start:03-Nov-2016 Instruction Type:Provider Instructions for Treatment How to access health informa tion online Indication:Anxiety Start:26-Jul-2016 Instruction Type:Patient Education How to access health informa tion online - Detail Indication:Anxiety Start:26-Jul-2016 Instruction Type:Patient Education Patient Instructions Indication:Anxiety Start:26-Jul-2016 Instruction Type:Provider Instructions for Treatment How to access health informa tion online Indication:Flu-like symptoms Start:01-Jun-2016 Instruction Type:Patient Education How to access health informa tion online - Detail Indication:Flu-like symptoms Start:01-Jun-2016 Instruction Type:Patient Education Patient Instructions Indication:Flu-like symptoms Start:01-Jun-2016 Instruction Type:Provider Instructions for Treatment How to access health informa tion online Indication:Vomiting Start:28-Apr-2016 Instruction Type:Patient Education How to access health informa tion online - Detail Indication:Vomiting Start:28-Apr-2016 Instruction Type:Patient Education Patient Instructions Indication:Vomiting Start:28-Apr-2016 Instruction Type:Provider Instructions for Treatment How to access health informa tion online Indication:Benign essential hypertension (Renamed from Benign essential HTN) Start:01-Apr-2016 Instruction Type:Patient Education How to access health informa tion online - Detail Indication:Benign essential hypertension (Renamed from Benign essential HTN) Start:01-Apr-2016 Instruction Type:Patient Education Patient Instructions Indication:Benign essential hypertension (Renamed from Benign essential HTN) Start:01-Apr-2016 Instruction Type:Provider Instructions for Treatment How to access health informa tion online Indication:Headache Start:10-Dec-2015 Instruction Type:Patient Education How to access health informa tion online - Detail Indication:Headache Start:10-Dec-2015 Instruction Type:Patient Education Patient Instructions Indication:Headache Start:10-Dec-2015 Instruction Type:Provider Instructions for Treatment Patient Instructions Indication:Headache Start:09-Dec-2015 Instruction Type:Provider Instructions for Treatment How to access health informa tion online Indication:Dizziness Start:09-Dec-2015 Instruction Type:Patient Education How to access health informa tion online - Detail Indication:Dizziness Start:09-Dec-2015 Instruction Type:Patient Education Patient Instructions Indication:Dizziness Start:09-Dec-2015 Instruction Type:Provider Instructions for Treatment How to access health informa tion online Indication:Hypercholesterolemia Start:12-Nov-2015 Instruction Type:Patient Education How to access health informa tion online - Detail Indication:Hypercholesterolemia Start:12-Nov-2015 Instruction Type:Patient Education Patient Instructions Indication:Hypercholesterolemia Start:12-Nov-2015 Instruction Type:Provider Instructions for Treatment How to access health informa tion online Indication:Hypercholesterolemia Start:16-Jun-2015 Instruction Type:Patient Education How to access health informa tion online - Detail Indication:Hypercholesterolemia Start:16-Jun-2015 Instruction Type:Patient Education Patient Instructions Indication:Hypercholesterolemia Start:16-Jun-2015 Instruction Type:Provider Instructions for Treatment How to access health informa tion online Indication:Hypercholesterolemia Start:25-Nov-2014 Instruction Type:Patient Education How to access health informa tion online - Detail Indication:Hypercholesterolemia Start:25-Nov-2014 Instruction Type:Patient Education Patient Instructions Indication:Hypercholesterolemia Start:25-Nov-2014 Instruction Type:Provider Instructions for Treatment Patient Instructions Indication:Coronary artery disease Start:26-Jul-2014 Instruction Type:Provider Instructions for Treatment Patient Instructions Indication:Hypercholesterolemia Start:29-May-2014 Instruction Type:Provider Instructions for Treatment Patient Instructions Indication:Buerger disease Start:30-Nov-2013 Instruction Type:Provider Instructions for Treatment Patient Instructions Indication:Benign essential hypertension (Renamed from Benign essential HTN) Start:19-Nov-2013 Instruction Type:Provider Instructions for Treatment Patient Instructions Indication:Raynaud's phenomenon Start:13-Aug-2013 Instruction Type:Provider Instructions for Treatment Patient Instructions Indication:Benign essential hypertension (Renamed from Benign essential HTN) Start:18-Jul-2013 Instruction Type:Provider Instructions for Treatment Patient Instructions Indication:Lower urinary tract infection Start:07-Mar-2013 Instruction Type:Provider Instructions for Treatment Patient Instructions Indication:Gastroesophageal reflux disease without esophagitis Start:13-Nov-2012 Instruction Type:Provider Instructions for Treatment Patient Instructions Indication:Cough Start:13-Jul-2012 Instruction Type:Provider Instructions for Treatment Patient Instructions Indication:Allergic Rhinitis Start:25-May-2012 Instruction Type:Provider Instructions for Treatment Patient Instructions Indication:Benign essential hypertension (Renamed from Benign essential HTN) Start:19-Jan-2012 Instruction Type:Provider Instructions for Treatment [facility] Work Phone: Instructions* Name Dates Details How to access health informa tion online Indication:Cigar smoker Start:07-Aug-2019 Instruction Type:Patient Education How to access health informa tion online - Detail Indication:Cigar smoker Start:07-Aug-2019 Instruction Type:Patient Education Patient Instructions Indication:Cigar smoker Start:07-Aug-2019 Instruction Type:Provider Instructions for Treatment How to access health informa tion online Indication:BMI 36.0-36.9,adult Start:18-Jun-2019 Instruction Type:Patient Education How to access health informa tion online - Detail Indication:BMI 36.0-36.9,adult Start:18-Jun-2019 Instruction Type:Patient Education Patient Instructions Indication:BMI 36.0-36.9,adult Start:18-Jun-2019 Instruction Type:Provider Instructions for Treatment How to access health informa tion online Indication:Nonsmoker Start:18-May-2019 Instruction Type:Patient Education How to access health informa tion online - Detail Indication:Nonsmoker Start:18-May-2019 Instruction Type:Patient Education Patient Instructions Indication:Nonsmoker Start:18-May-2019 Instruction Type:Provider Instructions for Treatment How to access health informa tion online Indication:BMI 36.0-36.9,adult Start:15-May-2019 Instruction Type:Patient Education How to access health informa tion online - Detail Indication:BMI 36.0-36.9,adult Start:15-May-2019 Instruction Type:Patient Education Patient Instructions Indication:BMI 36.0-36.9,adult Start:15-May-2019 Instruction Type:Provider Instructions for Treatment How to access health informa tion online Indication:Cigar smoker Start:04-Aug-2018 Instruction Type:Patient Education How to access health informa tion online - Detail Indication:Cigar smoker Start:04-Aug-2018 Instruction Type:Patient Education Patient Instructions Indication:BMI 33.0-33.9,adult Start:04-Aug-2018 Instruction Type:Provider Instructions for Treatment How to access health informa tion online Indication:Cigar smoker Start:10-Jul-2018 Instruction Type:Patient Education How to access health informa tion online - Detail Indication:Cigar smoker Start:10-Jul-2018 Instruction Type:Patient Education Patient Instructions Indication:Persistent headaches Start:10-Jul-2018 Instruction Type:Provider Instructions for Treatment How to access health informa tion online Indication:BMI 36.0-36.9,adult Start:25-Apr-2018 Instruction Type:Patient Education How to access health informa tion online - Detail Indication:BMI 36.0-36.9,adult Start:25-Apr-2018 Instruction Type:Patient Education Patient Instructions Indication:BMI 36.0-36.9,adult Start:25-Apr-2018 Instruction Type:Provider Instructions for Treatment How to access health informa tion online Indication:Attention deficit Start:10-Apr-2018 Instruction Type:Patient Education How to access health informa tion online - Detail Indication:Attention deficit Start:10-Apr-2018 Instruction Type:Patient Education Patient Instructions Indication:Attention deficit Start:10-Apr-2018 Instruction Type:Provider Instructions for Treatment How to access health informa tion online Indication:BMI 35.0-35.9,adult Start:02-Jan-2018 Instruction Type:Patient Education How to access health informa tion online - Detail Indication:BMI 35.0-35.9,adult Start:02-Jan-2018 Instruction Type:Patient Education Patient Instructions Indication:Elevated blood pressure reading Start:02-Jan-2018 Instruction Type:Provider Instructions for Treatment How to access health informa tion online Indication:Current smoker Start:23-Nov-2017 Instruction Type:Patient Education Patient Instructions Indication:Current smoker Start:23-Nov-2017 Instruction Type:Provider Instructions for Treatment How to access health informa tion online Indication:Impaired fasting glucose Start:06-Sep-2017 Instruction Type:Patient Education How to access health informa tion online - Detail Indication:Impaired fasting glucose Start:06-Sep-2017 Instruction Type:Patient Education Patient Instructions Indication:Anxiety Start:06-Sep-2017 Instruction Type:Provider Instructions for Treatment How to access health informa tion online Indication:Elevated liver enzymes Start:07-Jun-2017 Instruction Type:Patient Education How to access health informa tion online - Detail Indication:Elevated liver enzymes Start:07-Jun-2017 Instruction Type:Patient Education Patient Instructions Indication:Screening for prostate cancer Start:07-Jun-2017 Instruction Type:Provider Instructions for Treatment How to access health informa tion online Indication:BMI 34.0-34.9,adult Start:21-Dec-2016 Instruction Type:Patient Education How to access health informa tion online - Detail Indication:BMI 34.0-34.9,adult Start:21-Dec-2016 Instruction Type:Patient Education Patient Instructions Indication:BMI 34.0-34.9,adult Start:21-Dec-2016 Instruction Type:Provider Instructions for Treatment How to access health informa tion online Indication:Cough Start:19-Nov-2016 Instruction Type:Patient Education How to access health informa tion online - Detail Indication:Cough Start:19-Nov-2016 Instruction Type:Patient Education Patient Instructions Indication:Cough Start:19-Nov-2016 Instruction Type:Provider Instructions for Treatment DISCONTINUED - METABOLIC LOPEZ EL, COMPREHENSIVE (17362) Indication:ALT (SGPT) level raised Start:03-Nov-2016 Instruction Type:Patient Education DISCONTINUED - LIPID PANEL ( 66518) Indication:Benign essential hypertension (Renamed from Benign essential HTN) Start:03-Nov-2016 Instruction Type:Patient Education DISCONTINUED - METABOLIC LOPEZ EL, COMPREHENSIVE (14544) Indication:Benign essential hypertension (Renamed from Benign essential HTN) Start:03-Nov-2016 Instruction Type:Patient Education DISCONTINUED - HEPATIC FUNCT ION PANEL (35483) Indication:Hypercholesterolemia Start:03-Nov-2016 Instruction Type:Patient Education How to access health informa tion online Indication:Cough Start:03-Nov-2016 Instruction Type:Patient Education How to access health informa tion online - Detail Indication:Cough Start:03-Nov-2016 Instruction Type:Patient Education Patient Instructions Indication:Cough Start:03-Nov-2016 Instruction Type:Provider Instructions for Treatment How to access health informa tion online Indication:Anxiety Start:26-Jul-2016 Instruction Type:Patient Education How to access health informa tion online - Detail Indication:Anxiety Start:26-Jul-2016 Instruction Type:Patient Education Patient Instructions Indication:Anxiety Start:26-Jul-2016 Instruction Type:Provider Instructions for Treatment How to access health informa tion online Indication:Flu-like symptoms Start:01-Jun-2016 Instruction Type:Patient Education How to access health informa tion online - Detail Indication:Flu-like symptoms Start:01-Jun-2016 Instruction Type:Patient Education Patient Instructions Indication:Flu-like symptoms Start:01-Jun-2016 Instruction Type:Provider Instructions for Treatment How to access health informa tion online Indication:Vomiting Start:28-Apr-2016 Instruction Type:Patient Education How to access health informa tion online - Detail Indication:Vomiting Start:28-Apr-2016 Instruction Type:Patient Education Patient Instructions Indication:Vomiting Start:28-Apr-2016 Instruction Type:Provider Instructions for Treatment How to access health informa tion online Indication:Benign essential hypertension (Renamed from Benign essential HTN) Start:01-Apr-2016 Instruction Type:Patient Education How to access health informa tion online - Detail Indication:Benign essential hypertension (Renamed from Benign essential HTN) Start:01-Apr-2016 Instruction Type:Patient Education Patient Instructions Indication:Benign essential hypertension (Renamed from Benign essential HTN) Start:01-Apr-2016 Instruction Type:Provider Instructions for Treatment How to access health informa tion online Indication:Headache Start:10-Dec-2015 Instruction Type:Patient Education How to access health informa tion online - Detail Indication:Headache Start:10-Dec-2015 Instruction Type:Patient Education Patient Instructions Indication:Headache Start:10-Dec-2015 Instruction Type:Provider Instructions for Treatment Patient Instructions Indication:Headache Start:09-Dec-2015 Instruction Type:Provider Instructions for Treatment How to access health informa tion online Indication:Dizziness Start:09-Dec-2015 Instruction Type:Patient Education How to access health informa tion online - Detail Indication:Dizziness Start:09-Dec-2015 Instruction Type:Patient Education Patient Instructions Indication:Dizziness Start:09-Dec-2015 Instruction Type:Provider Instructions for Treatment How to access health informa tion online Indication:Hypercholesterolemia Start:12-Nov-2015 Instruction Type:Patient Education How to access health informa tion online - Detail Indication:Hypercholesterolemia Start:12-Nov-2015 Instruction Type:Patient Education Patient Instructions Indication:Hypercholesterolemia Start:12-Nov-2015 Instruction Type:Provider Instructions for Treatment How to access health informa tion online Indication:Hypercholesterolemia Start:16-Jun-2015 Instruction Type:Patient Education How to access health informa tion online - Detail Indication:Hypercholesterolemia Start:16-Jun-2015 Instruction Type:Patient Education Patient Instructions Indication:Hypercholesterolemia Start:16-Jun-2015 Instruction Type:Provider Instructions for Treatment How to access health informa tion online Indication:Hypercholesterolemia Start:25-Nov-2014 Instruction Type:Patient Education How to access health informa tion online - Detail Indication:Hypercholesterolemia Start:25-Nov-2014 Instruction Type:Patient Education Patient Instructions Indication:Hypercholesterolemia Start:25-Nov-2014 Instruction Type:Provider Instructions for Treatment Patient Instructions Indication:Coronary artery disease Start:26-Jul-2014 Instruction Type:Provider Instructions for Treatment Patient Instructions Indication:Hypercholesterolemia Start:29-May-2014 Instruction Type:Provider Instructions for Treatment Patient Instructions Indication:Buerger disease Start:30-Nov-2013 Instruction Type:Provider Instructions for Treatment Patient Instructions Indication:Benign essential hypertension (Renamed from Benign essential HTN) Start:19-Nov-2013 Instruction Type:Provider Instructions for Treatment Patient Instructions Indication:Raynaud's phenomenon Start:13-Aug-2013 Instruction Type:Provider Instructions for Treatment Patient Instructions Indication:Benign essential hypertension (Renamed from Benign essential HTN) Start:18-Jul-2013 Instruction Type:Provider Instructions for Treatment Patient Instructions Indication:Lower urinary tract infection Start:07-Mar-2013 Instruction Type:Provider Instructions for Treatment Patient Instructions Indication:Gastroesophageal reflux disease without esophagitis Start:13-Nov-2012 Instruction Type:Provider Instructions for Treatment Patient Instructions Indication:Cough Start:13-Jul-2012 Instruction Type:Provider Instructions for Treatment Patient Instructions Indication:Allergic Rhinitis Start:25-May-2012 Instruction Type:Provider Instructions for Treatment Patient Instructions Indication:Benign essential hypertension (Renamed from Benign essential HTN) Start:19-Jan-2012 Instruction Type:Provider Instructions for Treatment [facility] Work Phone: patient's home Plan of care note* Visit Details Visit Type -SN ROUTINE Discipline -[facility] Problems Problem Description Start Date Status Goals Interve ntions Risk for Falls Disciplines: Skilled Services 09/09/2021 Active 1 goal linked to scheduled/documen jim intervention 1 goal intervention scheduled/document ed in this visit Pain Disciplines: Skilled Services 09/09/2021 Active 1 goal linked to scheduled/documen jim intervention 1 goal intervention scheduled/document ed in this visit SN Cardiac Procedure/Surgery Disciplines: SN 09/09/2021 Active 1 goal linked to scheduled/documen jim intervention 1 goal intervention scheduled/document ed in this visit SN Integumentary/Wound s Disciplines: SN 09/09/2021 Active 1 goal linked to scheduled/documen jim intervention 1 goal intervention scheduled/document ed in this visit SN Cardiovascular Condition Disciplines: SN 09/09/2021 Active 1 goal linked to scheduled/documen jim intervention 2 goal interventions scheduled/document ed in this visit SN Learning Assessment Disciplines: SN 09/09/2021 Active 1 goal linked to scheduled/documen jim intervention 1 goal intervention scheduled/document ed in this visit Physician Specific Parameters Disciplines: Skilled Services 09/09/2021 Active 1 goal linked to scheduled/documen jim intervention 1 goal intervention scheduled/document ed in this visit Goals Goal Associated Problem Outcome Goal Met? Visit Notes Manage Risk for falls Description: Patient/caregiver will verbalize knowledge of individualized fall prevention strategies by 10/08/21. Risk for Falls No Manage Pain Description: Patient/caregiver will verbalize knowledge and understanding of appropriate techniques to control pain, including pain medication and non-pharmacological techniques. Patient will verbalize or demonstrate an acceptable level of pain as evidenced by a pain score of 0-3/10 and improvement in ability to perform activities of daily living to be achieved by 10/08/21. Pain No Patient/caregiver understands all aspects of aftercare post cardiac procedure/surgery Description: Patient/Caregiver to verbalize understanding of aftercare post cardiac procedure/surgery by 10/08/21. SN Cardiac Procedure/Surgery No Patient/Caregiver will verbalize/demonstrate integumentary condition management and achieve improved healing SN Integumentary/Wounds No Improved management of cardiovascular disease Description: Improve patient/caregiver management of cardiac disease as evidenced by patient/caregiver ability to teach back cardiac management strategies. SN Cardiovascular Condition No Demonstrate understanding of education Description: Patient and/or caregiver will verbalize understanding of educational instruction provided. SN Learning Assessment No Patient to maintain parameters within physician-specified ranges Physician Specific Parameters No Interventions Intervention Associated Problem/Goal Status Variance Visit Notes Instruct on individual fall risk factors and strategies to prevent falls and injuries caused by falls. Problem:Risk for Falls Goal:Manage Risk for falls Completed SN: Patient instructed on Eliminating Environmental Hazards: Keep pathways clear and Keep pets out of pathways Instruct on pain and instruct on strategies to control pain Problem:Pain Goal:Manage Pain Completed patient instructed on techniques to control pain including Non-Pharmacological measures; rest, positioning/elevatio n, mobility/therapeutic exercise, distraction and breathing/relaxation . 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 Problem:SN Cardiac Procedure/Surgery Goal:Patient/caregiver understands all aspects of aftercare post cardiac procedure/surgery Completed patient assessed and reinforced on keeping all incisions clean with mild soap and water and leave open to air, allow dermabond to slough off on it's own, signs & symptoms of complications: infection such as fever of 101 or greater, chills, redness and/or drainage of incision site, nausea/vomiting, and/or malaise and cardiac complications such as headache, dizziness, light-headedness, SOB, heart palpitations, chest pain, or chest pressure, activity guidelines: no raising arms greater than 90 degrees, no lifting items >8-10lbs, walking program, energy conservation and breathing exercises, use of incentive spirometer, record daily weights, temperature, and BP and instruct heart health diet. Wound Care: Perform wound care (1) Description: Incision location: sternum, abdomen Order: clean daily with mild soap and water,pat dry.May cover with DSD if draining,change daily. Frequency: daily Measure wound/incision weekly and as needed. Problem:SN Integumentary/Wounds Goal:Patient/Caregiver will verbalize/demonstrate integumentary condition management and achieve improved healing Completed Completed by SN. Patient did tolerate well. Instruct on Acute AL after care Description: Assess/Instruct on post acute AL management. Problem:SN Cardiovascular Condition Goal:Improved management of cardiovascular disease Completed patient instructed on Heart Attack Zone Sheet. Green Zone: Instructed to continue with current interventions. Yellow Zone: Instructed to notify home care/physician of chest pain that resolves with activity or use of NTG, Increased SOB, Increased tiredness, nausea/vomiting, dizziness, and/or sudden weight gain. Red Zone/911: Instructed to call 911 for new chest, jaw, throat or shoulder pain that does not resolve within 5 minutes after taking NTG and/or associated with shortness of breath, sweating, n/v, dizziness, and/or heartbeat that feels fast or irregular. Instruct on cardiovascular disease process and management of condition Description: Patient has following cardiac diagnosis(es): CAD. Problem:SN Cardiovascular Condition Goal:Improved management of cardiovascular disease Completed patient instructed on cardiac disease process and self monitoring & symptom reporting. Instruct and educate on knowledge deficits Problem:SN Learning Assessment Goal:Demonstrate understanding of education Completed patient verbalize and/or demonstrate understanding of nursing education completed today. Education methods include: verbal cues. Further education required to improve knowledge and compliance with cardiac disease management, fall prevention/home safety strategies, incision/wound care management, medication management, nutrition, pain management and surgical care precautions. SPO2 Description: Notify Dr. Beck if pulse ox is <92% at rest. Problem:Physician Specific Parameters Goal:Patient to maintain parameters within physician-specified ranges Completed documented in this encounter [facility]'s home Plan of care note* Visit Details Visit Type -SN ROUTINE Discipline -[facility] Problems Problem Description Start Date Status Goals Interve ntions Risk for Falls Disciplines: Skilled Services 09/09/2021 Active 1 goal linked to scheduled/documen jim intervention 1 goal intervention scheduled/document ed in this visit Pain Disciplines: Skilled Services 09/09/2021 Active 1 goal linked to scheduled/documen jim intervention 1 goal intervention scheduled/document ed in this visit SN Cardiac Procedure/Surgery Disciplines: SN 09/09/2021 Active 1 goal linked to scheduled/documen jim intervention 1 goal intervention scheduled/document ed in this visit SN Integumentary/Wound s Disciplines: SN 09/09/2021 Active 1 goal linked to scheduled/documen jim intervention 3 goal interventions scheduled/document ed in this visit SN Cardiovascular Condition Disciplines: SN 09/09/2021 Active 1 goal linked to scheduled/documen jim intervention 2 goal interventions scheduled/document ed in this visit SN Learning Assessment Disciplines: SN 09/09/2021 Active 1 goal linked to scheduled/documen jim intervention 1 goal intervention scheduled/document ed in this visit Physician Specific Parameters Disciplines: Skilled Services 09/09/2021 Active 1 goal linked to scheduled/documen jim intervention 1 goal intervention scheduled/document ed in this visit Goals Goal Associated Problem Outcome Goal Met? Visit Notes Manage Risk for falls Description: Patient/caregiver will verbalize knowledge of individualized fall prevention strategies by 10/08/21. Risk for Falls No Manage Pain Description: Patient/caregiver will verbalize knowledge and understanding of appropriate techniques to control pain, including pain medication and non-pharmacological techniques. Patient will verbalize or demonstrate an acceptable level of pain as evidenced by a pain score of 0-3/10 and improvement in ability to perform activities of daily living to be achieved by 10/08/21. Pain No Patient/caregiver understands all aspects of aftercare post cardiac procedure/surgery Description: Patient/Caregiver to verbalize understanding of aftercare post cardiac procedure/surgery by 10/08/21. SN Cardiac Procedure/Surgery No Patient/Caregiver will verbalize/demonstrate integumentary condition management and achieve improved healing SN Integumentary/Wounds No Improved management of cardiovascular disease Description: Improve patient/caregiver management of cardiac disease as evidenced by patient/caregiver ability to teach back cardiac management strategies. SN Cardiovascular Condition No Demonstrate understanding of education Description: Patient and/or caregiver will verbalize understanding of educational instruction provided. SN Learning Assessment No Patient to maintain parameters within physician-specified ranges Physician Specific Parameters No Interventions Intervention Associated Problem/Goal Status Variance Visit Notes Instruct on individual fall risk factors and strategies to prevent falls and injuries caused by falls. Problem:Risk for Falls Goal:Manage Risk for falls Completed SN: Patient instructed on Eliminating Environmental Hazards: Keep pathways clear Instruct on pain and instruct on strategies to control pain Problem:Pain Goal:Manage Pain Completed patient instructed on techniques to control pain including Non-Pharmacological measures; rest, positioning/elevatio n, mobility/therapeutic exercise, distraction and breathing/relaxation . 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 Problem:SN Cardiac Procedure/Surgery Goal:Patient/caregiver understands all aspects of aftercare post cardiac procedure/surgery Completed patient assessed and reinforced on signs & symptoms of complications: infection such as fever of 101 or greater, chills, redness and/or drainage of incision site, nausea/vomiting, and/or malaise and cardiac complications such as headache, dizziness, light-headedness, SOB, heart palpitations, chest pain, or chest pressure, record daily weights, temperature, and BP and instruct heart health diet. Wound Care: Perform wound care (1) Description: Incision location: sternum, abdomen Order: clean daily with mild soap and water,pat dry.May cover with DSD if draining,change daily. Frequency: daily Measure wound/incision weekly and as needed. Problem:SN Integumentary/Wounds Goal:Patient/Caregiver will verbalize/demonstrate integumentary condition management and achieve improved healing Completed Completed by SN. Patient did tolerate well. Instruct patient/caregiver healing process and management measures to promote healing and avoid complications Problem:SN Integumentary/Wounds Goal:Patient/Caregiver will verbalize/demonstrate integumentary condition management and achieve improved healing Completed patient instructed on the following: healing process, signs and symptoms of infection, importance of good nutrition and when to report symptoms. Instruct Patient/Caregiver on wound/incision care procedure as ordered by physician Problem:SN Integumentary/Wounds Goal:Patient/Caregiver will verbalize/demonstrate integumentary condition management and achieve improved healing Completed patient instructed on wound care as ordered by Physician. Instruct on Acute AL after care Description: Assess/Instruct on post acute AL management. Problem:SN Cardiovascular Condition Goal:Improved management of cardiovascular disease Completed patient instructed on Heart Attack Zone Sheet. Green Zone: Instructed to continue with current interventions. Yellow Zone: Instructed to notify home care/physician of chest pain that resolves with activity or use of NTG, Increased SOB, Increased tiredness, nausea/vomiting, dizziness, and/or sudden weight gain. Red Zone/911: Instructed to call 911 for new chest, jaw, throat or shoulder pain that does not resolve within 5 minutes after taking NTG and/or associated with shortness of breath, sweating, n/v, dizziness, and/or heartbeat that feels fast or irregular. Instruct on cardiovascular disease process and management of condition Description: Patient has following cardiac diagnosis(es): CAD. Problem:SN Cardiovascular Condition Goal:Improved management of cardiovascular disease Completed patient instructed on cardiac disease process. Instruct and educate on knowledge deficits Problem:SN Learning Assessment Goal:Demonstrate understanding of education Completed patient verbalize and/or demonstrate understanding of nursing education completed today. Education methods include: verbal cues. Further education required to improve knowledge and compliance with cardiac disease management, fall prevention/home safety strategies, incision/wound care management, nutrition and pain management. SPO2 Description: Notify Dr. Beck if pulse ox is <92% at rest. Problem:Physician Specific Parameters Goal:Patient to maintain parameters within physician-specified ranges Completed documented in this encounter [facility]'s home Plan of care note* Visit Details Visit Type -SN AGENCY DC W V ISIT Discipline -[facility] Problems Problem Description Start Date Status Goals Interve ntions Medication Education Disciplines: Skilled Services 09/09/2021 Resolved on 09/30/2021 1 goal linked to scheduled/docume nted intervention Risk for Falls Disciplines: Skilled Services 09/09/2021 Resolved on 09/30/2021 1 goal linked to scheduled/docume nted intervention 1 goal intervention scheduled/documen jim in this visit Pain Disciplines: Skilled Services 09/09/2021 Resolved on 09/30/2021 1 goal linked to scheduled/docume nted intervention 1 goal intervention scheduled/documen jim in this visit Nutrition/Hydration Disciplines: Skilled Services 09/09/2021 Resolved on 09/30/2021 1 goal linked to scheduled/docume nted intervention Discharge Disciplines: Skilled Services 09/09/2021 Resolved on 09/30/2021 1 goal linked to scheduled/docume nted intervention 1 goal intervention scheduled/documen jim in this visit Advance Directives Disciplines: Skilled Services 09/09/2021 Resolved on 09/30/2021 1 goal linked to scheduled/docume nted intervention SN Cardiac Procedure/Surgery Disciplines: SN 09/09/2021 Resolved on 09/30/2021 1 goal linked to scheduled/docume nted intervention 1 goal intervention scheduled/documen jim in this visit SN Integumentary/Wound s Disciplines: SN 09/09/2021 Resolved on 09/30/2021 1 goal linked to scheduled/docume nted intervention 1 goal intervention scheduled/documen jim in this visit SN Cardiovascular Condition Disciplines: SN 09/09/2021 Resolved on 09/30/2021 1 goal linked to scheduled/docume nted intervention 1 goal intervention scheduled/documen jim in this visit SN Learning Assessment Disciplines: SN 09/09/2021 Resolved on 09/30/2021 1 goal linked to scheduled/docume nted intervention 1 goal intervention scheduled/documen jim in this visit Physician Specific Parameters Disciplines: Skilled Services 09/09/2021 Resolved on 09/30/2021 1 goal linked to scheduled/docume nted intervention 1 goal intervention scheduled/documen jim in this visit Goals Goal Associated Problem Outcome Goal Met? Visit Notes Patient/caregiver will demonstrate ability to obtain, store, identify and administer ordered medications, keep accurate medication list in home, and adhere to medication schedule Medication Education Completed Yes met Manage Risk for falls Description: Patient/caregiver will verbalize knowledge of individualized fall prevention strategies by 10/08/21. Risk for Falls Completed Yes met Manage Pain Description: Patient/caregiver will verbalize knowledge and understanding of appropriate techniques to control pain, including pain medication and non-pharmacological techniques. Patient will verbalize or demonstrate an acceptable level of pain as evidenced by a pain score of 0-3/10 and improvement in ability to perform activities of daily living to be achieved by 10/08/21. Pain Completed Yes met Manage Nutrition/Hydration Description: Patient/caregiver will verbalize/demonstrate knowledge of prescribed diet and/or healthy nutrition. Nutrition/Hydration Completed Yes met Manage discharge planning Description: Patient/caregiver will verbalize understanding of ongoing discharge plan provided related to disease management, arrangements for outpatient and/or community services, obtaining medications, supplies, and DME, as needed. Discharge Completed Yes met Patient/caregiver will make healthcare providers aware of Advance Directives Advance Directives Completed Yes met Patient/caregiver understands all aspects of aftercare post cardiac procedure/surgery Description: Patient/Caregiver to verbalize understanding of aftercare post cardiac procedure/surgery by 10/08/21. SN Cardiac Procedure/Surgery Completed Yes met Patient/Caregiver will verbalize/demonstrate integumentary condition management and achieve improved healing SN Integumentary/Wounds Completed Yes met Improved management of cardiovascular disease Description: Improve patient/caregiver management of cardiac disease as evidenced by patient/caregiver ability to teach back cardiac management strategies. SN Cardiovascular Condition Completed Yes met Demonstrate understanding of education Description: Patient and/or caregiver will verbalize understanding of educational instruction provided. SN Learning Assessment Completed Yes met Patient to maintain parameters within physician-specified ranges Physician Specific Parameters Completed Yes met Interventions Intervention Associated Problem/Goal Status Variance Visit Notes Instruct on individual fall risk factors and strategies to prevent falls and injuries caused by falls. Problem:Risk for Falls Goal:Manage Risk for falls Completed SN: Patient instructed on Eliminating Environmental Hazards: Keep pathways clear and Keep pets out of pathways Instruct on pain and instruct on strategies to control pain Problem:Pain Goal:Manage Pain Completed patient instructed on techniques to control pain including Non-Pharmacological measures; rest, positioning/elevatio n, mobility/therapeutic exercise, distraction and breathing/relaxation . 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 Problem:SN Cardiac Procedure/Surgery Goal:Patient/caregiver understands all aspects of aftercare post cardiac procedure/surgery Completed patient assessed and reinforced on signs & symptoms of complications: infection such as fever of 101 or greater, chills, redness and/or drainage of incision site, nausea/vomiting, and/or malaise and cardiac complications such as headache, dizziness, light-headedness, SOB, heart palpitations, chest pain, or chest pressure, activity guidelines: no raising arms greater than 90 degrees, no lifting items >8-10lbs, walking program, energy conservation and breathing exercises, record daily weights, temperature, and BP and instruct heart health diet. Instruct patient/caregiver healing process and management measures to promote healing and avoid complications Problem:SN Integumentary/Wounds Goal:Patient/Caregiver will verbalize/demonstrate integumentary condition management and achieve improved healing Completed patient instructed on the following: healing process, signs and symptoms of infection, importance of good nutrition and when to report symptoms. Instruct on cardiovascular disease process and management of condition Description: Patient has following cardiac diagnosis(es): CAD. Problem:SN Cardiovascular Condition Goal:Improved management of cardiovascular disease Completed patient instructed on cardiac disease process, self monitoring & symptom reporting and Cardiac Diet. Instruct and educate on knowledge deficits Problem:SN Learning Assessment Goal:Demonstrate understanding of education Completed patient verbalize and/or demonstrate understanding of nursing education completed today. Education methods include: verbal cues. Further education required to improve knowledge and compliance with cardiac disease management, fall prevention/home safety strategies, incision/wound care management, nutrition and pain management. SPO2 Description: Notify Dr. Beck if pulse ox is <92% at rest. Problem:Physician Specific Parameters Goal:Patient to maintain parameters within physician-specified ranges Completed documented in this encounter [facility] for referral (narrative)* Consultation (Routine) - Pending Review Specialty Diagnoses / Procedures Referred By Tran rosales Referred To Contact Orthopedic Surgery Diagnoses Acute pain of left shoulder Ania Motta DO [address] [place] [address] [facility] [address] [place] [address] Referral ID Status Reason Start Date Expiration Date Visits Requested Visits Authorized [id number] Pending Review Specialty Services Required 02/01/2024 1 1 [facility] Summary Purpose Family History Unknown Family Member Name Dates Details Brother 1 Comments:In good health Status:Active Father Comments:HTN, Elevated clemente sterol & Thyroid Status:Active Sister 1 Comments:In good health Status:Active Sister 2 Comments:In good health Status:Active Sister 3 Comments:In good health Status:Active Unknown Family Member Name Dates Details Brother 1 Comments:In good health Status:Active Father Comments:HTN, Elevated clemente sterol & Thyroid Status:Active Sister 1 Comments:In good health Status:Active Sister 2 Comments:In good health Status:Active Sister 3 Comments:In good health Status:Active Unknown Family Member Name Dates Details Brother 1 Comments:In good health Status:Active Father Comments:HTN, Elevated clemente sterol & Thyroid Status:Active Sister 1 Comments:In good health Status:Active Sister 2 Comments:In good health Status:Active Sister 3 Comments:In good health Status:Active Unknown Family Member Name Dates Details Brother 1 Comments:In good health Status:Active Father Comments:HTN, Elevated clemente sterol & Thyroid Status:Active Sister 1 Comments:In good health Status:Active Sister 2 Comments:In good health Status:Active Sister 3 Comments:In good health Status:Active Unknown Family Member Name Dates Details Brother 1 Comments:In good health Status:Active Father Comments:HTN, Elevated clemente sterol & Thyroid Status:Active Sister 1 Comments:In good health Status:Active Sister 2 Comments:In good health Status:Active Sister 3 Comments:In good health Status:Active Unknown Family Member Name Dates Details Brother 1 Comments:In good health Status:Active Father Comments:HTN, Elevated clemente sterol & Thyroid Status:Active Sister 1 Comments:In good health Status:Active Sister 2 Comments:In good health Status:Active Sister 3 Comments:In good health Status:Active Unknown Family Member Name Dates Details Brother 1 Comments:In good health Status:Active Father Comments:HTN, Elevated clemente sterol & Thyroid Status:Active Sister 1 Comments:In good health Status:Active Sister 2 Comments:In good health Status:Active Sister 3 Comments:In good health Status:Active Unknown Family Member Name Dates Details Brother 1 Comments:In good health Status:Active Father Comments:HTN, Elevated clemente sterol & Thyroid Status:Active Sister 1 Comments:In good health Status:Active Sister 2 Comments:In good health Status:Active Sister 3 Comments:In good health Status:Active Unknown Family Member Name Dates Details Brother 1 Comments:In good health Status:Active Father Comments:HTN, Elevated clemente sterol & Thyroid Status:Active Sister 1 Comments:In good health Status:Active Sister 2 Comments:In good health Status:Active Sister 3 Comments:In good health Status:Active Unknown Family Member Name Dates Details Brother 1 Comments:In good health Status:Active Father Comments:HTN, Elevated clemente sterol & Thyroid Status:Active Sister 1 Comments:In good health Status:Active Sister 2 Comments:In good health Status:Active Sister 3 Comments:In good health Status:Active Unknown Family Member Name Dates Details Brother 1 Comments:In good health Status:Active Father Comments:HTN, Elevated clemente sterol & Thyroid Status:Active Sister 1 Comments:In good health Status:Active Sister 2 Comments:In good health Status:Active Sister 3 Comments:In good health Status:Active Unknown Family Member Name Dates Details Brother 1 Comments:In good health Status:Active Father Comments:HTN, Elevated clemente sterol & Thyroid Status:Active Sister 1 Comments:In good health Status:Active Sister 2 Comments:In good health Status:Active Sister 3 Comments:In good health Status:Active Unknown Family Member Name Dates Details Brother 1 Comments:In good health Status:Active Father Comments:HTN, Elevated clemente sterol & Thyroid Status:Active Sister 1 Comments:In good health Status:Active Sister 2 Comments:In good health Status:Active Sister 3 Comments:In good health Status:Active Relationship Condition Age at Onset Recorded Date/T russ brother Diabetes mellitus Unknown Disorder of thyroid Unknown father Hypertension Unknown aunt Diabetes mellitus Unknown mother Cerebrovascular accident (CVA) Unknown Rheumatoid arthritis Unknown sister Disorder of thyroid Unknown grandfather Malignant neoplasm of stomach Unknown grandmother History of ovarian cancer Unknown Diabetes mellitus Unknown son Asthma Unknown Advance Directives Documents on File Type Date Recorded Patient 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 Advance Directive(s) 06/08/2021 7:08 AM Advance Directive(s) 12/24/2020 1:58 AM Advance Directive(s) 12/12/2017 10:11 PM Advance Directive(s) 09/14/2017 12:58 AM Documents on File Type Date Recorded Patient 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 Advance Directive(s) 08/27/2021 12:15 AM Advance Directive(s) 06/08/2021 7:08 AM Advance Directive(s) 12/24/2020 1:58 AM Advance Directive(s) 12/12/2017 10:11 PM Advance Directive(s) 09/14/2017 12:58 AM Latest Code Status on File Code Status Date Activated Date Inactivated Comments Full Code 09/09/2021 4:39 PM Documents on File Type Date Recorded Patient 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 Advance Directive(s) 08/27/2021 12:15 AM Advance Directive(s) 06/08/2021 7:08 AM Advance Directive(s) 12/24/2020 1:58 AM Advance Directive(s) 12/12/2017 10:11 PM Advance Directive(s) 09/14/2017 12:58 AM Latest Code Status on File Code Status Date Activated Date Inactivated Comments Full Code 09/09/2021 4:39 PM Latest Code Status on File Code Status Date Activated Date Inactivated Comments Full Code 11/13/2021 12:06 AM 11/13/2021 5:51 PM Full Code Order Discussed With: Patient Full Code 09/09/2021 4:39 PM 11/12/2021 8:13 PM Latest Code Status on File Code Status Date Activated Date Inactivated Comments Full Code 11/13/2021 12:06 AM 11/13/2021 5:51 PM Question Answer Comments Full Code Order Discussed With: Patient Code Status History Code Status Date Activated Date Inactivated Comments Full Code 09/09/2021 4:39 PM 11/12/2021 8:13 PM Advance Directive Response Recorded Date/ Time Living Will No December 21, 2022 3:56pm Power of Supervisor Covering [employer] Lining No December 3:56pm Date Activated Date Inactivated Comments 11/13/2021 12:06 AM 11/13/2021 5:51 PM Question Answer Comments Full Code Order Discussed With: Patient Date Activated Date Inactivated Comments 09/09/2021 4:39 PM 11/12/2021 8:13 PM Instructions Name Dates Details BMI 36.0-36.9,adult : How to access health information online Indication:BMI 36.0-36.9,adult BMI 36.0-36.9,adult : How to access health information online - Detail Indication:BMI 36.0-36.9,adult BMI 36.0-36.9,adult : Patien t Instructions Indication:BMI 36.0-36.9,adult Attention deficit : How to a ccess health information online Indication:Attention deficit Attention deficit : How to a ccess health information online - Detail Indication:Attention deficit Attention deficit : Patient Instructions Indication:Attention deficit BMI 35.0-35.9,adult : How to access health information online Indication:BMI 35.0-35.9,adult BMI 35.0-35.9,adult : How to access health information online - Detail Indication:BMI 35.0-35.9,adult Elevated blood pressure read ing : Patient Instructions Indication:Elevated blood pressure reading Current smoker : How to acce ss health information online Indication:Current smoker Current smoker : Patient Ins tructions Indication:Current smoker Impaired fasting glucose : H ow to access health information online Indication:Impaired fasting glucose Impaired fasting glucose : H ow to access health information online - Detail Indication:Impaired fasting glucose Anxiety : Patient Instructio ns Indication:Anxiety Elevated liver enzymes : How to access health information online Indication:Elevated liver enzymes Elevated liver enzymes : How to access health information online - Detail Indication:Elevated liver enzymes Screening for prostate cance r : Patient Instructions Indication:Screening for prostate cancer BMI 34.0-34.9,adult : How to access health information online Indication:BMI 34.0-34.9,adult BMI 34.0-34.9,adult : How to access health information online - Detail Indication:BMI 34.0-34.9,adult BMI 34.0-34.9,adult : Patien t Instructions Indication:BMI 34.0-34.9,adult Cough : How to access health information online Indication:Cough Cough : How to access health information online - Detail Indication:Cough Cough : Patient Instructions Indication:Cough ALT (SGPT) level raised : DI SCONTINUED - METABOLIC PANEL, COMPREHENSIVE (91156) Indication:ALT (SGPT) level raised Benign essential hypertensio n (Renamed from Benign essential HTN) : DISCONTINUED - LIPID PANEL (37619) Indication:Benign essential hypertension (Renamed from Benign essential HTN) Benign essential hypertensio n (Renamed from Benign essential HTN) : DISCONTINUED - METABOLIC PANEL, COMPREHENSIVE (88667) Indication:Benign essential hypertension (Renamed from Benign essential HTN) Hypercholesterolemia : DISCO NTINUED - HEPATIC FUNCTION PANEL (41076) Indication:Hypercholesterolemia Anxiety : How to access heal th information online Indication:Anxiety Anxiety : How to access heal th information online - Detail Indication:Anxiety Flu-like symptoms : How to a ccess health information online Indication:Flu-like symptoms Flu-like symptoms : How to a ccess health information online - Detail Indication:Flu-like symptoms Flu-like symptoms : Patient Instructions Indication:Flu-like symptoms Vomiting : How to access hea lth information online Indication:Vomiting Vomiting : How to access hea lth information online - Detail Indication:Vomiting Vomiting : Patient Instructi ons Indication:Vomiting Benign essential hypertensio n (Renamed from Benign essential HTN) : How to access health information online Indication:Benign essential hypertension (Renamed from Benign essential HTN) Benign essential hypertensio n (Renamed from Benign essential HTN) : How to access health information online - Detail Indication:Benign essential hypertension (Renamed from Benign essential HTN) Benign essential hypertensio n (Renamed from Benign essential HTN) : Patient Instructions Indication:Benign essential hypertension (Renamed from Benign essential HTN) Headache : How to access hea lth information online Indication:Headache Headache : How to access hea lth information online - Detail Indication:Headache Headache : Patient Instructi ons Indication:Headache Dizziness : How to access he alth information online Indication:Dizziness Dizziness : How to access he alth information online - Detail Indication:Dizziness Dizziness : Patient Instruct ions Indication:Dizziness Hypercholesterolemia : How t o access health information online Indication:Hypercholesterolemia Hypercholesterolemia : How t o access health information online - Detail Indication:Hypercholesterolemia Hypercholesterolemia : Patie nt Instructions Indication:Hypercholesterolemia Coronary artery disease : Kassandra moreno Instructions Indication:Coronary artery disease Buerger disease : Patient In structions Indication:Buerger disease Raynaud's phenomenon : Patie nt Instructions Indication:Raynaud's phenomenon Lower urinary tract infectio n : Patient Instructions Indication:Lower urinary tract infection Gastroesophageal reflux dise ase without esophagitis : Patient Instructions Indication:Gastroesophageal reflux disease without esophagitis Allergic Rhinitis : Patient Instructions Indication:Allergic Rhinitis Name Dates Details Cigar smoker : How to access health information online Indication:Cigar smoker Cigar smoker : How to access health information online - Detail Indication:Cigar smoker Persistent headaches : Patie nt Instructions Indication:Persistent headaches BMI 36.0-36.9,adult : How to access health information online Indication:BMI 36.0-36.9,adult BMI 36.0-36.9,adult : How to access health information online - Detail Indication:BMI 36.0-36.9,adult BMI 36.0-36.9,adult : Patien t Instructions Indication:BMI 36.0-36.9,adult Attention deficit : How to a ccess health information online Indication:Attention deficit Attention deficit : How to a ccess health information online - Detail Indication:Attention deficit Attention deficit : Patient Instructions Indication:Attention deficit BMI 35.0-35.9,adult : How to access health information online Indication:BMI 35.0-35.9,adult BMI 35.0-35.9,adult : How to access health information online - Detail Indication:BMI 35.0-35.9,adult Elevated blood pressure read ing : Patient Instructions Indication:Elevated blood pressure reading Current smoker : How to acce ss health information online Indication:Current smoker Current smoker : Patient Ins tructions Indication:Current smoker Impaired fasting glucose : H ow to access health information online Indication:Impaired fasting glucose Impaired fasting glucose : H ow to access health information online - Detail Indication:Impaired fasting glucose Anxiety : Patient Instructio ns Indication:Anxiety Elevated liver enzymes : How to access health information online Indication:Elevated liver enzymes Elevated liver enzymes : How to access health information online - Detail Indication:Elevated liver enzymes Screening for prostate cance r : Patient Instructions Indication:Screening for prostate cancer BMI 34.0-34.9,adult : How to access health information online Indication:BMI 34.0-34.9,adult BMI 34.0-34.9,adult : How to access health information online - Detail Indication:BMI 34.0-34.9,adult BMI 34.0-34.9,adult : Patien t Instructions Indication:BMI 34.0-34.9,adult Cough : How to access health information online Indication:Cough Cough : How to access health information online - Detail Indication:Cough Cough : Patient Instructions Indication:Cough ALT (SGPT) level raised : DI SCONTINUED - METABOLIC PANEL, COMPREHENSIVE (11547) Indication:ALT (SGPT) level raised Benign essential hypertensio n (Renamed from Benign essential HTN) : DISCONTINUED - LIPID PANEL (06201) Indication:Benign essential hypertension (Renamed from Benign essential HTN) Benign essential hypertensio n (Renamed from Benign essential HTN) : DISCONTINUED - METABOLIC PANEL, COMPREHENSIVE (22021) Indication:Benign essential hypertension (Renamed from Benign essential HTN) Hypercholesterolemia : DISCO NTINUED - HEPATIC FUNCTION PANEL (02290) Indication:Hypercholesterolemia Anxiety : How to access heal th information online Indication:Anxiety Anxiety : How to access heal th information online - Detail Indication:Anxiety Flu-like symptoms : How to a ccess health information online Indication:Flu-like symptoms Flu-like symptoms : How to a ccess health information online - Detail Indication:Flu-like symptoms Flu-like symptoms : Patient Instructions Indication:Flu-like symptoms Vomiting : How to access hea lth information online Indication:Vomiting Vomiting : How to access hea lth information online - Detail Indication:Vomiting Vomiting : Patient Instructi ons Indication:Vomiting Benign essential hypertensio n (Renamed from Benign essential HTN) : How to access health information online Indication:Benign essential hypertension (Renamed from Benign essential HTN) Benign essential hypertensio n (Renamed from Benign essential HTN) : How to access health information online - Detail Indication:Benign essential hypertension (Renamed from Benign essential HTN) Benign essential hypertensio n (Renamed from Benign essential HTN) : Patient Instructions Indication:Benign essential hypertension (Renamed from Benign essential HTN) Headache : How to access hea lth information online Indication:Headache Headache : How to access hea lth information online - Detail Indication:Headache Headache : Patient Instructi ons Indication:Headache Dizziness : How to access he alth information online Indication:Dizziness Dizziness : How to access he alth information online - Detail Indication:Dizziness Dizziness : Patient Instruct ions Indication:Dizziness Hypercholesterolemia : How t o access health information online Indication:Hypercholesterolemia Hypercholesterolemia : How t o access health information online - Detail Indication:Hypercholesterolemia Hypercholesterolemia : Patie nt Instructions Indication:Hypercholesterolemia Coronary artery disease : Kassandra moreno Instructions Indication:Coronary artery disease Buerger disease : Patient In structions Indication:Buerger disease Raynaud's phenomenon : Patie nt Instructions Indication:Raynaud's phenomenon Lower urinary tract infectio n : Patient Instructions Indication:Lower urinary tract infection Gastroesophageal reflux dise ase without esophagitis : Patient Instructions Indication:Gastroesophageal reflux disease without esophagitis Allergic Rhinitis : Patient Instructions Indication:Allergic Rhinitis Name Dates Details Cigar smoker : How to access health information online Indication:Cigar smoker Cigar smoker : How to access health information online - Detail Indication:Cigar smoker Persistent headaches : Patie nt Instructions Indication:Persistent headaches BMI 36.0-36.9,adult : How to access health information online Indication:BMI 36.0-36.9,adult BMI 36.0-36.9,adult : How to access health information online - Detail Indication:BMI 36.0-36.9,adult BMI 36.0-36.9,adult : Patien t Instructions Indication:BMI 36.0-36.9,adult Attention deficit : How to a ccess health information online Indication:Attention deficit Attention deficit : How to a ccess health information online - Detail Indication:Attention deficit Attention deficit : Patient Instructions Indication:Attention deficit BMI 35.0-35.9,adult : How to access health information online Indication:BMI 35.0-35.9,adult BMI 35.0-35.9,adult : How to access health information online - Detail Indication:BMI 35.0-35.9,adult Elevated blood pressure read ing : Patient Instructions Indication:Elevated blood pressure reading Current smoker : How to acce ss health information online Indication:Current smoker Current smoker : Patient Ins tructions Indication:Current smoker Impaired fasting glucose : H ow to access health information online Indication:Impaired fasting glucose Impaired fasting glucose : H ow to access health information online - Detail Indication:Impaired fasting glucose Anxiety : Patient Instructio ns Indication:Anxiety Elevated liver enzymes : How to access health information online Indication:Elevated liver enzymes Elevated liver enzymes : How to access health information online - Detail Indication:Elevated liver enzymes Screening for prostate cance r : Patient Instructions Indication:Screening for prostate cancer BMI 34.0-34.9,adult : How to access health information online Indication:BMI 34.0-34.9,adult BMI 34.0-34.9,adult : How to access health information online - Detail Indication:BMI 34.0-34.9,adult BMI 34.0-34.9,adult : Patien t Instructions Indication:BMI 34.0-34.9,adult Cough : How to access health information online Indication:Cough Cough : How to access health information online - Detail Indication:Cough Cough : Patient Instructions Indication:Cough ALT (SGPT) level raised : DI SCONTINUED - METABOLIC PANEL, COMPREHENSIVE (53117) Indication:ALT (SGPT) level raised Benign essential hypertensio n (Renamed from Benign essential HTN) : DISCONTINUED - LIPID PANEL (96890) Indication:Benign essential hypertension (Renamed from Benign essential HTN) Benign essential hypertensio n (Renamed from Benign essential HTN) : DISCONTINUED - METABOLIC PANEL, COMPREHENSIVE (27115) Indication:Benign essential hypertension (Renamed from Benign essential HTN) Hypercholesterolemia : DISCO NTINUED - HEPATIC FUNCTION PANEL (78262) Indication:Hypercholesterolemia Anxiety : How to access heal th information online Indication:Anxiety Anxiety : How to access heal th information online - Detail Indication:Anxiety Flu-like symptoms : How to a ccess health information online Indication:Flu-like symptoms Flu-like symptoms : How to a ccess health information online - Detail Indication:Flu-like symptoms Flu-like symptoms : Patient Instructions Indication:Flu-like symptoms Vomiting : How to access hea lth information online Indication:Vomiting Vomiting : How to access hea lth information online - Detail Indication:Vomiting Vomiting : Patient Instructi ons Indication:Vomiting Benign essential hypertensio n (Renamed from Benign essential HTN) : How to access health information online Indication:Benign essential hypertension (Renamed from Benign essential HTN) Benign essential hypertensio n (Renamed from Benign essential HTN) : How to access health information online - Detail Indication:Benign essential hypertension (Renamed from Benign essential HTN) Benign essential hypertensio n (Renamed from Benign essential HTN) : Patient Instructions Indication:Benign essential hypertension (Renamed from Benign essential HTN) Headache : How to access hea lth information online Indication:Headache Headache : How to access hea lth information online - Detail Indication:Headache Headache : Patient Instructi ons Indication:Headache Dizziness : How to access he alth information online Indication:Dizziness Dizziness : How to access he alth information online - Detail Indication:Dizziness Dizziness : Patient Instruct ions Indication:Dizziness Hypercholesterolemia : How t o access health information online Indication:Hypercholesterolemia Hypercholesterolemia : How t o access health information online - Detail Indication:Hypercholesterolemia Hypercholesterolemia : Patie nt Instructions Indication:Hypercholesterolemia Coronary artery disease : Kassandra moreno Instructions Indication:Coronary artery disease Buerger disease : Patient In structions Indication:Buerger disease Raynaud's phenomenon : Patie nt Instructions Indication:Raynaud's phenomenon Lower urinary tract infectio n : Patient Instructions Indication:Lower urinary tract infection Gastroesophageal reflux dise ase without esophagitis : Patient Instructions Indication:Gastroesophageal reflux disease without esophagitis Allergic Rhinitis : Patient Instructions Indication:Allergic Rhinitis Name Dates Details Cigar smoker : How to access health information online Indication:Cigar smoker Cigar smoker : How to access health information online - Detail Indication:Cigar smoker Persistent headaches : Patie nt Instructions Indication:Persistent headaches BMI 36.0-36.9,adult : How to access health information online Indication:BMI 36.0-36.9,adult BMI 36.0-36.9,adult : How to access health information online - Detail Indication:BMI 36.0-36.9,adult BMI 36.0-36.9,adult : Patien t Instructions Indication:BMI 36.0-36.9,adult Attention deficit : How to a ccess health information online Indication:Attention deficit Attention deficit : How to a ccess health information online - Detail Indication:Attention deficit Attention deficit : Patient Instructions Indication:Attention deficit BMI 35.0-35.9,adult : How to access health information online Indication:BMI 35.0-35.9,adult BMI 35.0-35.9,adult : How to access health information online - Detail Indication:BMI 35.0-35.9,adult Elevated blood pressure read ing : Patient Instructions Indication:Elevated blood pressure reading Current smoker : How to acce ss health information online Indication:Current smoker Current smoker : Patient Ins tructions Indication:Current smoker Impaired fasting glucose : H ow to access health information online Indication:Impaired fasting glucose Impaired fasting glucose : H ow to access health information online - Detail Indication:Impaired fasting glucose Anxiety : Patient Instructio ns Indication:Anxiety Elevated liver enzymes : How to access health information online Indication:Elevated liver enzymes Elevated liver enzymes : How to access health information online - Detail Indication:Elevated liver enzymes Screening for prostate cance r : Patient Instructions Indication:Screening for prostate cancer BMI 34.0-34.9,adult : How to access health information online Indication:BMI 34.0-34.9,adult BMI 34.0-34.9,adult : How to access health information online - Detail Indication:BMI 34.0-34.9,adult BMI 34.0-34.9,adult : Patien t Instructions Indication:BMI 34.0-34.9,adult Cough : How to access health information online Indication:Cough Cough : How to access health information online - Detail Indication:Cough Cough : Patient Instructions Indication:Cough ALT (SGPT) level raised : DI SCONTINUED - METABOLIC PANEL, COMPREHENSIVE (39667) Indication:ALT (SGPT) level raised Benign essential hypertensio n (Renamed from Benign essential HTN) : DISCONTINUED - LIPID PANEL (77468) Indication:Benign essential hypertension (Renamed from Benign essential HTN) Benign essential hypertensio n (Renamed from Benign essential HTN) : DISCONTINUED - METABOLIC PANEL, COMPREHENSIVE ([id number]) Indication:Benign essential hypertension (Renamed from Benign essential HTN) Hypercholesterolemia : DISCO NTINUED - HEPATIC FUNCTION PANEL (70911) Indication:Hypercholesterolemia Anxiety : How to access heal th information online Indication:Anxiety Anxiety : How to access heal th information online - Detail Indication:Anxiety Flu-like symptoms : How to a ccess health information online Indication:Flu-like symptoms Flu-like symptoms : How to a ccess health information online - Detail Indication:Flu-like symptoms Flu-like symptoms : Patient Instructions Indication:Flu-like symptoms Vomiting : How to access hea lth information online Indication:Vomiting Vomiting : How to access hea lth information online - Detail Indication:Vomiting Vomiting : Patient Instructi ons Indication:Vomiting Benign essential hypertensio n (Renamed from Benign essential HTN) : How to access health information online Indication:Benign essential hypertension (Renamed from Benign essential HTN) Benign essential hypertensio n (Renamed from Benign essential HTN) : How to access health information online - Detail Indication:Benign essential hypertension (Renamed from Benign essential HTN) Benign essential hypertensio n (Renamed from Benign essential HTN) : Patient Instructions Indication:Benign essential hypertension (Renamed from Benign essential HTN) Headache : How to access hea lth information online Indication:Headache Headache : How to access hea lth information online - Detail Indication:Headache Headache : Patient Instructi ons Indication:Headache Dizziness : How to access he alth information online Indication:Dizziness Dizziness : How to access he alth information online - Detail Indication:Dizziness Dizziness : Patient Instruct ions Indication:Dizziness Hypercholesterolemia : How t o access health information online Indication:Hypercholesterolemia Hypercholesterolemia : How t o access health information online - Detail Indication:Hypercholesterolemia Hypercholesterolemia : Patie nt Instructions Indication:Hypercholesterolemia Coronary artery disease : Kassandra moreno Instructions Indication:Coronary artery disease Buerger disease : Patient In structions Indication:Buerger disease Raynaud's phenomenon : Patie nt Instructions Indication:Raynaud's phenomenon Lower urinary tract infectio n : Patient Instructions Indication:Lower urinary tract infection Gastroesophageal reflux dise ase without esophagitis : Patient Instructions Indication:Gastroesophageal reflux disease without esophagitis Allergic Rhinitis : Patient Instructions Indication:Allergic Rhinitis Name Dates Details How to access health informa tion online Indication:Cigar smoker Start:04-Aug-2018 Instruction Type:Patient Education How to access health informa tion online - Detail Indication:Cigar smoker Start:04-Aug-2018 Instruction Type:Patient Education Patient Instructions Indication:BMI 33.0-33.9,adult Start:04-Aug-2018 Instruction Type:Provider Instructions for Treatment How to access health informa tion online Indication:Cigar smoker Start:10-Jul-2018 Instruction Type:Patient Education How to access health informa tion online - Detail Indication:Cigar smoker Start:10-Jul-2018 Instruction Type:Patient Education Patient Instructions Indication:Persistent headaches Start:10-Jul-2018 Instruction Type:Provider Instructions for Treatment How to access health informa tion online Indication:BMI 36.0-36.9,adult Start:25-Apr-2018 Instruction Type:Patient Education How to access health informa tion online - Detail Indication:BMI 36.0-36.9,adult Start:25-Apr-2018 Instruction Type:Patient Education Patient Instructions Indication:BMI 36.0-36.9,adult Start:25-Apr-2018 Instruction Type:Provider Instructions for Treatment How to access health informa tion online Indication:Attention deficit Start:10-Apr-2018 Instruction Type:Patient Education How to access health informa tion online - Detail Indication:Attention deficit Start:10-Apr-2018 Instruction Type:Patient Education Patient Instructions Indication:Attention deficit Start:10-Apr-2018 Instruction Type:Provider Instructions for Treatment How to access health informa tion online Indication:BMI 35.0-35.9,adult Start:02-Jan-2018 Instruction Type:Patient Education How to access health informa tion online - Detail Indication:BMI 35.0-35.9,adult Start:02-Jan-2018 Instruction Type:Patient Education Patient Instructions Indication:Elevated blood pressure reading Start:02-Jan-2018 Instruction Type:Provider Instructions for Treatment How to access health informa tion online Indication:Current smoker Start:23-Nov-2017 Instruction Type:Patient Education Patient Instructions Indication:Current smoker Start:23-Nov-2017 Instruction Type:Provider Instructions for Treatment How to access health informa tion online Indication:Impaired fasting glucose Start:06-Sep-2017 Instruction Type:Patient Education How to access health informa tion online - Detail Indication:Impaired fasting glucose Start:06-Sep-2017 Instruction Type:Patient Education Patient Instructions Indication:Anxiety Start:06-Sep-2017 Instruction Type:Provider Instructions for Treatment How to access health informa tion online Indication:Elevated liver enzymes Start:07-Jun-2017 Instruction Type:Patient Education How to access health informa tion online - Detail Indication:Elevated liver enzymes Start:07-Jun-2017 Instruction Type:Patient Education Patient Instructions Indication:Screening for prostate cancer Start:07-Jun-2017 Instruction Type:Provider Instructions for Treatment How to access health informa tion online Indication:BMI 34.0-34.9,adult Start:21-Dec-2016 Instruction Type:Patient Education How to access health informa tion online - Detail Indication:BMI 34.0-34.9,adult Start:21-Dec-2016 Instruction Type:Patient Education Patient Instructions Indication:BMI 34.0-34.9,adult Start:21-Dec-2016 Instruction Type:Provider Instructions for Treatment How to access health informa tion online Indication:Cough Start:19-Nov-2016 Instruction Type:Patient Education How to access health informa tion online - Detail Indication:Cough Start:19-Nov-2016 Instruction Type:Patient Education Patient Instructions Indication:Cough Start:19-Nov-2016 Instruction Type:Provider Instructions for Treatment DISCONTINUED - METABOLIC LOPEZ EL, COMPREHENSIVE (88644) Indication:ALT (SGPT) level raised Start:03-Nov-2016 Instruction Type:Patient Education DISCONTINUED - LIPID PANEL ( [id number]) Indication:Benign essential hypertension (Renamed from Benign essential HTN) Start:03-Nov-2016 Instruction Type:Patient Education DISCONTINUED - METABOLIC LOPEZ EL, COMPREHENSIVE (61195) Indication:Benign essential hypertension (Renamed from Benign essential HTN) Start:03-Nov-2016 Instruction Type:Patient Education DISCONTINUED - HEPATIC FUNCT ION PANEL ([id number]) Indication:Hypercholesterolemia Start:03-Nov-2016 Instruction Type:Patient Education How to access health informa tion online Indication:Cough Start:03-Nov-2016 Instruction Type:Patient Education How to access health informa tion online - Detail Indication:Cough Start:03-Nov-2016 Instruction Type:Patient Education Patient Instructions Indication:Cough Start:03-Nov-2016 Instruction Type:Provider Instructions for Treatment How to access health informa tion online Indication:Anxiety Start:26-Jul-2016 Instruction Type:Patient Education How to access health informa tion online - Detail Indication:Anxiety Start:26-Jul-2016 Instruction Type:Patient Education Patient Instructions Indication:Anxiety Start:26-Jul-2016 Instruction Type:Provider Instructions for Treatment How to access health informa tion online Indication:Flu-like symptoms Start:01-Jun-2016 Instruction Type:Patient Education How to access health informa tion online - Detail Indication:Flu-like symptoms Start:01-Jun-2016 Instruction Type:Patient Education Patient Instructions Indication:Flu-like symptoms Start:01-Jun-2016 Instruction Type:Provider Instructions for Treatment How to access health informa tion online Indication:Vomiting Start:28-Apr-2016 Instruction Type:Patient Education How to access health informa tion online - Detail Indication:Vomiting Start:28-Apr-2016 Instruction Type:Patient Education Patient Instructions Indication:Vomiting Start:28-Apr-2016 Instruction Type:Provider Instructions for Treatment How to access health informa tion online Indication:Benign essential hypertension (Renamed from Benign essential HTN) Start:01-Apr-2016 Instruction Type:Patient Education How to access health informa tion online - Detail Indication:Benign essential hypertension (Renamed from Benign essential HTN) Start:01-Apr-2016 Instruction Type:Patient Education Patient Instructions Indication:Benign essential hypertension (Renamed from Benign essential HTN) Start:01-Apr-2016 Instruction Type:Provider Instructions for Treatment How to access health informa tion online Indication:Headache Start:10-Dec-2015 Instruction Type:Patient Education How to access health informa tion online - Detail Indication:Headache Start:10-Dec-2015 Instruction Type:Patient Education Patient Instructions Indication:Headache Start:10-Dec-2015 Instruction Type:Provider Instructions for Treatment Patient Instructions Indication:Headache Start:09-Dec-2015 Instruction Type:Provider Instructions for Treatment How to access health informa tion online Indication:Dizziness Start:09-Dec-2015 Instruction Type:Patient Education How to access health informa tion online - Detail Indication:Dizziness Start:09-Dec-2015 Instruction Type:Patient Education Patient Instructions Indication:Dizziness Start:09-Dec-2015 Instruction Type:Provider Instructions for Treatment How to access health informa tion online Indication:Hypercholesterolemia Start:12-Nov-2015 Instruction Type:Patient Education How to access health informa tion online - Detail Indication:Hypercholesterolemia Start:12-Nov-2015 Instruction Type:Patient Education Patient Instructions Indication:Hypercholesterolemia Start:12-Nov-2015 Instruction Type:Provider Instructions for Treatment How to access health informa tion online Indication:Hypercholesterolemia Start:16-Jun-2015 Instruction Type:Patient Education How to access health informa tion online - Detail Indication:Hypercholesterolemia Start:16-Jun-2015 Instruction Type:Patient Education Patient Instructions Indication:Hypercholesterolemia Start:16-Jun-2015 Instruction Type:Provider Instructions for Treatment How to access health informa tion online Indication:Hypercholesterolemia Start:25-Nov-2014 Instruction Type:Patient Education How to access health informa tion online - Detail Indication:Hypercholesterolemia Start:25-Nov-2014 Instruction Type:Patient Education Patient Instructions Indication:Hypercholesterolemia Start:25-Nov-2014 Instruction Type:Provider Instructions for Treatment Patient Instructions Indication:Coronary artery disease Start:26-Jul-2014 Instruction Type:Provider Instructions for Treatment Patient Instructions Indication:Hypercholesterolemia Start:29-May-2014 Instruction Type:Provider Instructions for Treatment Patient Instructions Indication:Buerger disease Start:30-Nov-2013 Instruction Type:Provider Instructions for Treatment Patient Instructions Indication:Benign essential hypertension (Renamed from Benign essential HTN) Start:19-Nov-2013 Instruction Type:Provider Instructions for Treatment Patient Instructions Indication:Raynaud's phenomenon Start:13-Aug-2013 Instruction Type:Provider Instructions for Treatment Patient Instructions Indication:Benign essential hypertension (Renamed from Benign essential HTN) Start:18-Jul-2013 Instruction Type:Provider Instructions for Treatment Patient Instructions Indication:Lower urinary tract infection Start:07-Mar-2013 Instruction Type:Provider Instructions for Treatment Patient Instructions Indication:Gastroesophageal reflux disease without esophagitis Start:13-Nov-2012 Instruction Type:Provider Instructions for Treatment Patient Instructions Indication:Cough Start:13-Jul-2012 Instruction Type:Provider Instructions for Treatment Patient Instructions Indication:Allergic Rhinitis Start:25-May-2012 Instruction Type:Provider Instructions for Treatment Patient Instructions Indication:Benign essential hypertension (Renamed from Benign essential HTN) Start:19-Jan-2012 Instruction Type:Provider Instructions for Treatment Name Dates Details BMI 35.0-35.9,adult : How to access health information online Indication:BMI 35.0-35.9,adult BMI 35.0-35.9,adult : How to access health information online - Detail Indication:BMI 35.0-35.9,adult Elevated blood pressure read ing : Patient Instructions Indication:Elevated blood pressure reading Current smoker : How to acce ss health information online Indication:Current smoker Current smoker : Patient Ins tructions Indication:Current smoker Impaired fasting glucose : H ow to access health information online Indication:Impaired fasting glucose Impaired fasting glucose : H ow to access health information online - Detail Indication:Impaired fasting glucose Anxiety : Patient Instructio ns Indication:Anxiety Elevated liver enzymes : How to access health information online Indication:Elevated liver enzymes Elevated liver enzymes : How to access health information online - Detail Indication:Elevated liver enzymes Screening for prostate cance r : Patient Instructions Indication:Screening for prostate cancer BMI 34.0-34.9,adult : How to access health information online Indication:BMI 34.0-34.9,adult BMI 34.0-34.9,adult : How to access health information online - Detail Indication:BMI 34.0-34.9,adult BMI 34.0-34.9,adult : Patien t Instructions Indication:BMI 34.0-34.9,adult Cough : How to access health information online Indication:Cough Cough : How to access health information online - Detail Indication:Cough Cough : Patient Instructions Indication:Cough ALT (SGPT) level raised : DI SCONTINUED - METABOLIC PANEL, COMPREHENSIVE (53534) Indication:ALT (SGPT) level raised Benign essential hypertensio n (Renamed from Benign essential HTN) : DISCONTINUED - LIPID PANEL (23255) Indication:Benign essential hypertension (Renamed from Benign essential HTN) Benign essential hypertensio n (Renamed from Benign essential HTN) : DISCONTINUED - METABOLIC PANEL, COMPREHENSIVE (03685) Indication:Benign essential hypertension (Renamed from Benign essential HTN) Hypercholesterolemia : DISCO NTINUED - HEPATIC FUNCTION PANEL ([id number]) Indication:Hypercholesterolemia Anxiety : How to access heal th information online Indication:Anxiety Anxiety : How to access heal th information online - Detail Indication:Anxiety Flu-like symptoms : How to a ccess health information online Indication:Flu-like symptoms Flu-like symptoms : How to a ccess health information online - Detail Indication:Flu-like symptoms Flu-like symptoms : Patient Instructions Indication:Flu-like symptoms Vomiting : How to access hea lth information online Indication:Vomiting Vomiting : How to access hea lth information online - Detail Indication:Vomiting Vomiting : Patient Instructi ons Indication:Vomiting Benign essential hypertensio n (Renamed from Benign essential HTN) : How to access health information online Indication:Benign essential hypertension (Renamed from Benign essential HTN) Benign essential hypertensio n (Renamed from Benign essential HTN) : How to access health information online - Detail Indication:Benign essential hypertension (Renamed from Benign essential HTN) Benign essential hypertensio n (Renamed from Benign essential HTN) : Patient Instructions Indication:Benign essential hypertension (Renamed from Benign essential HTN) Headache : How to access hea lth information online Indication:Headache Headache : How to access hea lth information online - Detail Indication:Headache Headache : Patient Instructi ons Indication:Headache Dizziness : How to access he alth information online Indication:Dizziness Dizziness : How to access he alth information online - Detail Indication:Dizziness Dizziness : Patient Instruct ions Indication:Dizziness Hypercholesterolemia : How t o access health information online Indication:Hypercholesterolemia Hypercholesterolemia : How t o access health information online - Detail Indication:Hypercholesterolemia Hypercholesterolemia : Patie nt Instructions Indication:Hypercholesterolemia Coronary artery disease : Pa josh Instructions Indication:Coronary artery disease Buerger disease : Patient In structions Indication:Buerger disease Raynaud's phenomenon : Patie nt Instructions Indication:Raynaud's phenomenon Lower urinary tract infectio n : Patient Instructions Indication:Lower urinary tract infection Gastroesophageal reflux dise ase without esophagitis : Patient Instructions Indication:Gastroesophageal reflux disease without esophagitis Allergic Rhinitis : Patient Instructions Indication:Allergic Rhinitis Name Dates Details Attention deficit : How to a ccess health information online Indication:Attention deficit Attention deficit : How to a ccess health information online - Detail Indication:Attention deficit Attention deficit : Patient Instructions Indication:Attention deficit BMI 35.0-35.9,adult : How to access health information online Indication:BMI 35.0-35.9,adult BMI 35.0-35.9,adult : How to access health information online - Detail Indication:BMI 35.0-35.9,adult Elevated blood pressure read ing : Patient Instructions Indication:Elevated blood pressure reading Current smoker : How to acce ss health information online Indication:Current smoker Current smoker : Patient Ins tructions Indication:Current smoker Impaired fasting glucose : H ow to access health information online Indication:Impaired fasting glucose Impaired fasting glucose : H ow to access health information online - Detail Indication:Impaired fasting glucose Anxiety : Patient Instructio ns Indication:Anxiety Elevated liver enzymes : How to access health information online Indication:Elevated liver enzymes Elevated liver enzymes : How to access health information online - Detail Indication:Elevated liver enzymes Screening for prostate cance r : Patient Instructions Indication:Screening for prostate cancer BMI 34.0-34.9,adult : How to access health information online Indication:BMI 34.0-34.9,adult BMI 34.0-34.9,adult : How to access health information online - Detail Indication:BMI 34.0-34.9,adult BMI 34.0-34.9,adult : Patien t Instructions Indication:BMI 34.0-34.9,adult Cough : How to access health information online Indication:Cough Cough : How to access health information online - Detail Indication:Cough Cough : Patient Instructions Indication:Cough ALT (SGPT) level raised : DI SCONTINUED - METABOLIC PANEL, COMPREHENSIVE (52802) Indication:ALT (SGPT) level raised Benign essential hypertensio n (Renamed from Benign essential HTN) : DISCONTINUED - LIPID PANEL (84669) Indication:Benign essential hypertension (Renamed from Benign essential HTN) Benign essential hypertensio n (Renamed from Benign essential HTN) : DISCONTINUED - METABOLIC PANEL, COMPREHENSIVE (68591) Indication:Benign essential hypertension (Renamed from Benign essential HTN) Hypercholesterolemia : DISCO NTINUED - HEPATIC FUNCTION PANEL (04816) Indication:Hypercholesterolemia Anxiety : How to access heal th information online Indication:Anxiety Anxiety : How to access heal th information online - Detail Indication:Anxiety Flu-like symptoms : How to a ccess health information online Indication:Flu-like symptoms Flu-like symptoms : How to a ccess health information online - Detail Indication:Flu-like symptoms Flu-like symptoms : Patient Instructions Indication:Flu-like symptoms Vomiting : How to access hea lth information online Indication:Vomiting Vomiting : How to access hea lth information online - Detail Indication:Vomiting Vomiting : Patient Instructi ons Indication:Vomiting Benign essential hypertensio n (Renamed from Benign essential HTN) : How to access health information online Indication:Benign essential hypertension (Renamed from Benign essential HTN) Benign essential hypertensio n (Renamed from Benign essential HTN) : How to access health information online - Detail Indication:Benign essential hypertension (Renamed from Benign essential HTN) Benign essential hypertensio n (Renamed from Benign essential HTN) : Patient Instructions Indication:Benign essential hypertension (Renamed from Benign essential HTN) Headache : How to access hea lth information online Indication:Headache Headache : How to access hea lth information online - Detail Indication:Headache Headache : Patient Instructi ons Indication:Headache Dizziness : How to access he alth information online Indication:Dizziness Dizziness : How to access he alth information online - Detail Indication:Dizziness Dizziness : Patient Instruct ions Indication:Dizziness Hypercholesterolemia : How t o access health information online Indication:Hypercholesterolemia Hypercholesterolemia : How t o access health information online - Detail Indication:Hypercholesterolemia Hypercholesterolemia : Patie nt Instructions Indication:Hypercholesterolemia Coronary artery disease : Kassandra de la rosant Instructions Indication:Coronary artery disease Buerger disease : Patient In structions Indication:Buerger disease Raynaud's phenomenon : Patie nt Instructions Indication:Raynaud's phenomenon Lower urinary tract infectio n : Patient Instructions Indication:Lower urinary tract infection Gastroesophageal reflux dise ase without esophagitis : Patient Instructions Indication:Gastroesophageal reflux disease without esophagitis Allergic Rhinitis : Patient Instructions Indication:Allergic Rhinitis Name Dates Details BMI 35.0-35.9,adult : How to access health information online Indication:BMI 35.0-35.9,adult BMI 35.0-35.9,adult : How to access health information online - Detail Indication:BMI 35.0-35.9,adult Elevated blood pressure read ing : Patient Instructions Indication:Elevated blood pressure reading Current smoker : How to acce ss health information online Indication:Current smoker Current smoker : Patient Ins tructions Indication:Current smoker Impaired fasting glucose : H ow to access health information online Indication:Impaired fasting glucose Impaired fasting glucose : H ow to access health information online - Detail Indication:Impaired fasting glucose Anxiety : Patient Instructio ns Indication:Anxiety Elevated liver enzymes : How to access health information online Indication:Elevated liver enzymes Elevated liver enzymes : How to access health information online - Detail Indication:Elevated liver enzymes Screening for prostate cance r : Patient Instructions Indication:Screening for prostate cancer BMI 34.0-34.9,adult : How to access health information online Indication:BMI 34.0-34.9,adult BMI 34.0-34.9,adult : How to access health information online - Detail Indication:BMI 34.0-34.9,adult BMI 34.0-34.9,adult : Patien t Instructions Indication:BMI 34.0-34.9,adult Cough : How to access health information online Indication:Cough Cough : How to access health information online - Detail Indication:Cough Cough : Patient Instructions Indication:Cough ALT (SGPT) level raised : DI SCONTINUED - METABOLIC PANEL, COMPREHENSIVE (66516) Indication:ALT (SGPT) level raised Benign essential hypertensio n (Renamed from Benign essential HTN) : DISCONTINUED - LIPID PANEL (09988) Indication:Benign essential hypertension (Renamed from Benign essential HTN) Benign essential hypertensio n (Renamed from Benign essential HTN) : DISCONTINUED - METABOLIC PANEL, COMPREHENSIVE (62404) Indication:Benign essential hypertension (Renamed from Benign essential HTN) Hypercholesterolemia : DISCO NTINUED - HEPATIC FUNCTION PANEL (50470) Indication:Hypercholesterolemia Anxiety : How to access heal th information online Indication:Anxiety Anxiety : How to access heal th information online - Detail Indication:Anxiety Flu-like symptoms : How to a ccess health information online Indication:Flu-like symptoms Flu-like symptoms : How to a ccess health information online - Detail Indication:Flu-like symptoms Flu-like symptoms : Patient Instructions Indication:Flu-like symptoms Vomiting : How to access hea lth information online Indication:Vomiting Vomiting : How to access hea lth information online - Detail Indication:Vomiting Vomiting : Patient Instructi ons Indication:Vomiting Benign essential hypertensio n (Renamed from Benign essential HTN) : How to access health information online Indication:Benign essential hypertension (Renamed from Benign essential HTN) Benign essential hypertensio n (Renamed from Benign essential HTN) : How to access health information online - Detail Indication:Benign essential hypertension (Renamed from Benign essential HTN) Benign essential hypertensio n (Renamed from Benign essential HTN) : Patient Instructions Indication:Benign essential hypertension (Renamed from Benign essential HTN) Headache : How to access hea lth information online Indication:Headache Headache : How to access hea lth information online - Detail Indication:Headache Headache : Patient Instructi ons Indication:Headache Dizziness : How to access he alth information online Indication:Dizziness Dizziness : How to access he alth information online - Detail Indication:Dizziness Dizziness : Patient Instruct ions Indication:Dizziness Hypercholesterolemia : How t o access health information online Indication:Hypercholesterolemia Hypercholesterolemia : How t o access health information online - Detail Indication:Hypercholesterolemia Hypercholesterolemia : Patie nt Instructions Indication:Hypercholesterolemia Coronary artery disease : Kassandra moreno Instructions Indication:Coronary artery disease Buerger disease : Patient In structions Indication:Buerger disease Raynaud's phenomenon : Patie nt Instructions Indication:Raynaud's phenomenon Lower urinary tract infectio n : Patient Instructions Indication:Lower urinary tract infection Gastroesophageal reflux dise ase without esophagitis : Patient Instructions Indication:Gastroesophageal reflux disease without esophagitis Allergic Rhinitis : Patient Instructions Indication:Allergic Rhinitis Name Dates Details How to access health informa tion online Indication:Cigar smoker Start:07-Aug-2019 Instruction Type:Patient Education How to access health informa tion online - Detail Indication:Cigar smoker Start:07-Aug-2019 Instruction Type:Patient Education Patient Instructions Indication:Cigar smoker Start:07-Aug-2019 Instruction Type:Provider Instructions for Treatment How to access health informa tion online Indication:BMI 36.0-36.9,adult Start:18-Jun-2019 Instruction Type:Patient Education How to access health informa tion online - Detail Indication:BMI 36.0-36.9,adult Start:18-Jun-2019 Instruction Type:Patient Education Patient Instructions Indication:BMI 36.0-36.9,adult Start:18-Jun-2019 Instruction Type:Provider Instructions for Treatment How to access health informa tion online Indication:Nonsmoker Start:18-May-2019 Instruction Type:Patient Education How to access health informa tion online - Detail Indication:Nonsmoker Start:18-May-2019 Instruction Type:Patient Education Patient Instructions Indication:Nonsmoker Start:18-May-2019 Instruction Type:Provider Instructions for Treatment How to access health informa tion online Indication:BMI 36.0-36.9,adult Start:15-May-2019 Instruction Type:Patient Education How to access health informa tion online - Detail Indication:BMI 36.0-36.9,adult Start:15-May-2019 Instruction Type:Patient Education Patient Instructions Indication:BMI 36.0-36.9,adult Start:15-May-2019 Instruction Type:Provider Instructions for Treatment How to access health informa tion online Indication:Cigar smoker Start:04-Aug-2018 Instruction Type:Patient Education How to access health informa tion online - Detail Indication:Cigar smoker Start:04-Aug-2018 Instruction Type:Patient Education Patient Instructions Indication:BMI 33.0-33.9,adult Start:04-Aug-2018 Instruction Type:Provider Instructions for Treatment How to access health informa tion online Indication:Cigar smoker Start:10-Jul-2018 Instruction Type:Patient Education How to access health informa tion online - Detail Indication:Cigar smoker Start:10-Jul-2018 Instruction Type:Patient Education Patient Instructions Indication:Persistent headaches Start:10-Jul-2018 Instruction Type:Provider Instructions for Treatment How to access health informa tion online Indication:BMI 36.0-36.9,adult Start:25-Apr-2018 Instruction Type:Patient Education How to access health informa tion online - Detail Indication:BMI 36.0-36.9,adult Start:25-Apr-2018 Instruction Type:Patient Education Patient Instructions Indication:BMI 36.0-36.9,adult Start:25-Apr-2018 Instruction Type:Provider Instructions for Treatment How to access health informa tion online Indication:Attention deficit Start:10-Apr-2018 Instruction Type:Patient Education How to access health informa tion online - Detail Indication:Attention deficit Start:10-Apr-2018 Instruction Type:Patient Education Patient Instructions Indication:Attention deficit Start:10-Apr-2018 Instruction Type:Provider Instructions for Treatment How to access health informa tion online Indication:BMI 35.0-35.9,adult Start:02-Jan-2018 Instruction Type:Patient Education How to access health informa tion online - Detail Indication:BMI 35.0-35.9,adult Start:02-Jan-2018 Instruction Type:Patient Education Patient Instructions Indication:Elevated blood pressure reading Start:02-Jan-2018 Instruction Type:Provider Instructions for Treatment How to access health informa tion online Indication:Current smoker Start:23-Nov-2017 Instruction Type:Patient Education Patient Instructions Indication:Current smoker Start:23-Nov-2017 Instruction Type:Provider Instructions for Treatment How to access health informa tion online Indication:Impaired fasting glucose Start:06-Sep-2017 Instruction Type:Patient Education How to access health informa tion online - Detail Indication:Impaired fasting glucose Start:06-Sep-2017 Instruction Type:Patient Education Patient Instructions Indication:Anxiety Start:06-Sep-2017 Instruction Type:Provider Instructions for Treatment How to access health informa tion online Indication:Elevated liver enzymes Start:07-Jun-2017 Instruction Type:Patient Education How to access health informa tion online - Detail Indication:Elevated liver enzymes Start:07-Jun-2017 Instruction Type:Patient Education Patient Instructions Indication:Screening for prostate cancer Start:07-Jun-2017 Instruction Type:Provider Instructions for Treatment How to access health informa tion online Indication:BMI 34.0-34.9,adult Start:21-Dec-2016 Instruction Type:Patient Education How to access health informa tion online - Detail Indication:BMI 34.0-34.9,adult Start:21-Dec-2016 Instruction Type:Patient Education Patient Instructions Indication:BMI 34.0-34.9,adult Start:21-Dec-2016 Instruction Type:Provider Instructions for Treatment How to access health informa tion online Indication:Cough Start:19-Nov-2016 Instruction Type:Patient Education How to access health informa tion online - Detail Indication:Cough Start:19-Nov-2016 Instruction Type:Patient Education Patient Instructions Indication:Cough Start:19-Nov-2016 Instruction Type:Provider Instructions for Treatment DISCONTINUED - METABOLIC LOPEZ EL, COMPREHENSIVE (44639) Indication:ALT (SGPT) level raised Start:03-Nov-2016 Instruction Type:Patient Education DISCONTINUED - LIPID PANEL ( 41613) Indication:Benign essential hypertension (Renamed from Benign essential HTN) Start:03-Nov-2016 Instruction Type:Patient Education DISCONTINUED - METABOLIC LOPEZ EL, COMPREHENSIVE ([id number]) Indication:Benign essential hypertension (Renamed from Benign essential HTN) Start:03-Nov-2016 Instruction Type:Patient Education DISCONTINUED - HEPATIC FUNCT ION PANEL ([id number]) Indication:Hypercholesterolemia Start:03-Nov-2016 Instruction Type:Patient Education How to access health informa tion online Indication:Cough Start:03-Nov-2016 Instruction Type:Patient Education How to access health informa tion online - Detail Indication:Cough Start:03-Nov-2016 Instruction Type:Patient Education Patient Instructions Indication:Cough Start:03-Nov-2016 Instruction Type:Provider Instructions for Treatment How to access health informa tion online Indication:Anxiety Start:26-Jul-2016 Instruction Type:Patient Education How to access health informa tion online - Detail Indication:Anxiety Start:26-Jul-2016 Instruction Type:Patient Education Patient Instructions Indication:Anxiety Start:26-Jul-2016 Instruction Type:Provider Instructions for Treatment How to access health informa tion online Indication:Flu-like symptoms Start:01-Jun-2016 Instruction Type:Patient Education How to access health informa tion online - Detail Indication:Flu-like symptoms Start:01-Jun-2016 Instruction Type:Patient Education Patient Instructions Indication:Flu-like symptoms Start:01-Jun-2016 Instruction Type:Provider Instructions for Treatment How to access health informa tion online Indication:Vomiting Start:28-Apr-2016 Instruction Type:Patient Education How to access health informa tion online - Detail Indication:Vomiting Start:28-Apr-2016 Instruction Type:Patient Education Patient Instructions Indication:Vomiting Start:28-Apr-2016 Instruction Type:Provider Instructions for Treatment How to access health informa tion online Indication:Benign essential hypertension (Renamed from Benign essential HTN) Start:01-Apr-2016 Instruction Type:Patient Education How to access health informa tion online - Detail Indication:Benign essential hypertension (Renamed from Benign essential HTN) Start:01-Apr-2016 Instruction Type:Patient Education Patient Instructions Indication:Benign essential hypertension (Renamed from Benign essential HTN) Start:01-Apr-2016 Instruction Type:Provider Instructions for Treatment How to access health informa tion online Indication:Headache Start:10-Dec-2015 Instruction Type:Patient Education How to access health informa tion online - Detail Indication:Headache Start:10-Dec-2015 Instruction Type:Patient Education Patient Instructions Indication:Headache Start:10-Dec-2015 Instruction Type:Provider Instructions for Treatment Patient Instructions Indication:Headache Start:09-Dec-2015 Instruction Type:Provider Instructions for Treatment How to access health informa tion online Indication:Dizziness Start:09-Dec-2015 Instruction Type:Patient Education How to access health informa tion online - Detail Indication:Dizziness Start:09-Dec-2015 Instruction Type:Patient Education Patient Instructions Indication:Dizziness Start:09-Dec-2015 Instruction Type:Provider Instructions for Treatment How to access health informa tion online Indication:Hypercholesterolemia Start:12-Nov-2015 Instruction Type:Patient Education How to access health informa tion online - Detail Indication:Hypercholesterolemia Start:12-Nov-2015 Instruction Type:Patient Education Patient Instructions Indication:Hypercholesterolemia Start:12-Nov-2015 Instruction Type:Provider Instructions for Treatment How to access health informa tion online Indication:Hypercholesterolemia Start:16-Jun-2015 Instruction Type:Patient Education How to access health informa tion online - Detail Indication:Hypercholesterolemia Start:16-Jun-2015 Instruction Type:Patient Education Patient Instructions Indication:Hypercholesterolemia Start:16-Jun-2015 Instruction Type:Provider Instructions for Treatment How to access health informa tion online Indication:Hypercholesterolemia Start:25-Nov-2014 Instruction Type:Patient Education How to access health informa tion online - Detail Indication:Hypercholesterolemia Start:25-Nov-2014 Instruction Type:Patient Education Patient Instructions Indication:Hypercholesterolemia Start:25-Nov-2014 Instruction Type:Provider Instructions for Treatment Patient Instructions Indication:Coronary artery disease Start:26-Jul-2014 Instruction Type:Provider Instructions for Treatment Patient Instructions Indication:Hypercholesterolemia Start:29-May-2014 Instruction Type:Provider Instructions for Treatment Patient Instructions Indication:Buerger disease Start:30-Nov-2013 Instruction Type:Provider Instructions for Treatment Patient Instructions Indication:Benign essential hypertension (Renamed from Benign essential HTN) Start:19-Nov-2013 Instruction Type:Provider Instructions for Treatment Patient Instructions Indication:Raynaud's phenomenon Start:13-Aug-2013 Instruction Type:Provider Instructions for Treatment Patient Instructions Indication:Benign essential hypertension (Renamed from Benign essential HTN) Start:18-Jul-2013 Instruction Type:Provider Instructions for Treatment Patient Instructions Indication:Lower urinary tract infection Start:07-Mar-2013 Instruction Type:Provider Instructions for Treatment Patient Instructions Indication:Gastroesophageal reflux disease without esophagitis Start:13-Nov-2012 Instruction Type:Provider Instructions for Treatment Patient Instructions Indication:Cough Start:13-Jul-2012 Instruction Type:Provider Instructions for Treatment Patient Instructions Indication:Allergic Rhinitis Start:25-May-2012 Instruction Type:Provider Instructions for Treatment Patient Instructions Indication:Benign essential hypertension (Renamed from Benign essential HTN) Start:19-Jan-2012 Instruction Type:Provider Instructions for Treatment Name Dates Details How to access health informa tion online Indication:Cigar smoker Start:07-Aug-2019 Instruction Type:Patient Education How to access health informa tion online - Detail Indication:Cigar smoker Start:07-Aug-2019 Instruction Type:Patient Education Patient Instructions Indication:Cigar smoker Start:07-Aug-2019 Instruction Type:Provider Instructions for Treatment How to access health informa tion online Indication:BMI 36.0-36.9,adult Start:18-Jun-2019 Instruction Type:Patient Education How to access health informa tion online - Detail Indication:BMI 36.0-36.9,adult Start:18-Jun-2019 Instruction Type:Patient Education Patient Instructions Indication:BMI 36.0-36.9,adult Start:18-Jun-2019 Instruction Type:Provider Instructions for Treatment How to access health informa tion online Indication:Nonsmoker Start:18-May-2019 Instruction Type:Patient Education How to access health informa tion online - Detail Indication:Nonsmoker Start:18-May-2019 Instruction Type:Patient Education Patient Instructions Indication:Nonsmoker Start:18-May-2019 Instruction Type:Provider Instructions for Treatment How to access health informa tion online Indication:BMI 36.0-36.9,adult Start:15-May-2019 Instruction Type:Patient Education How to access health informa tion online - Detail Indication:BMI 36.0-36.9,adult Start:15-May-2019 Instruction Type:Patient Education Patient Instructions Indication:BMI 36.0-36.9,adult Start:15-May-2019 Instruction Type:Provider Instructions for Treatment How to access health informa tion online Indication:Cigar smoker Start:04-Aug-2018 Instruction Type:Patient Education How to access health informa tion online - Detail Indication:Cigar smoker Start:04-Aug-2018 Instruction Type:Patient Education Patient Instructions Indication:BMI 33.0-33.9,adult Start:04-Aug-2018 Instruction Type:Provider Instructions for Treatment How to access health informa tion online Indication:Cigar smoker Start:10-Jul-2018 Instruction Type:Patient Education How to access health informa tion online - Detail Indication:Cigar smoker Start:10-Jul-2018 Instruction Type:Patient Education Patient Instructions Indication:Persistent headaches Start:10-Jul-2018 Instruction Type:Provider Instructions for Treatment How to access health informa tion online Indication:BMI 36.0-36.9,adult Start:25-Apr-2018 Instruction Type:Patient Education How to access health informa tion online - Detail Indication:BMI 36.0-36.9,adult Start:25-Apr-2018 Instruction Type:Patient Education Patient Instructions Indication:BMI 36.0-36.9,adult Start:25-Apr-2018 Instruction Type:Provider Instructions for Treatment How to access health informa tion online Indication:Attention deficit Start:10-Apr-2018 Instruction Type:Patient Education How to access health informa tion online - Detail Indication:Attention deficit Start:10-Apr-2018 Instruction Type:Patient Education Patient Instructions Indication:Attention deficit Start:10-Apr-2018 Instruction Type:Provider Instructions for Treatment How to access health informa tion online Indication:BMI 35.0-35.9,adult Start:02-Jan-2018 Instruction Type:Patient Education How to access health informa tion online - Detail Indication:BMI 35.0-35.9,adult Start:02-Jan-2018 Instruction Type:Patient Education Patient Instructions Indication:Elevated blood pressure reading Start:02-Jan-2018 Instruction Type:Provider Instructions for Treatment How to access health informa tion online Indication:Current smoker Start:23-Nov-2017 Instruction Type:Patient Education Patient Instructions Indication:Current smoker Start:23-Nov-2017 Instruction Type:Provider Instructions for Treatment How to access health informa tion online Indication:Impaired fasting glucose Start:06-Sep-2017 Instruction Type:Patient Education How to access health informa tion online - Detail Indication:Impaired fasting glucose Start:06-Sep-2017 Instruction Type:Patient Education Patient Instructions Indication:Anxiety Start:06-Sep-2017 Instruction Type:Provider Instructions for Treatment How to access health informa tion online Indication:Elevated liver enzymes Start:07-Jun-2017 Instruction Type:Patient Education How to access health informa tion online - Detail Indication:Elevated liver enzymes Start:07-Jun-2017 Instruction Type:Patient Education Patient Instructions Indication:Screening for prostate cancer Start:07-Jun-2017 Instruction Type:Provider Instructions for Treatment How to access health informa tion online Indication:BMI 34.0-34.9,adult Start:21-Dec-2016 Instruction Type:Patient Education How to access health informa tion online - Detail Indication:BMI 34.0-34.9,adult Start:21-Dec-2016 Instruction Type:Patient Education Patient Instructions Indication:BMI 34.0-34.9,adult Start:21-Dec-2016 Instruction Type:Provider Instructions for Treatment How to access health informa tion online Indication:Cough Start:19-Nov-2016 Instruction Type:Patient Education How to access health informa tion online - Detail Indication:Cough Start:19-Nov-2016 Instruction Type:Patient Education Patient Instructions Indication:Cough Start:19-Nov-2016 Instruction Type:Provider Instructions for Treatment DISCONTINUED - METABOLIC LOPEZ EL, COMPREHENSIVE (24407) Indication:ALT (SGPT) level raised Start:03-Nov-2016 Instruction Type:Patient Education DISCONTINUED - LIPID PANEL ( 76212) Indication:Benign essential hypertension (Renamed from Benign essential HTN) Start:03-Nov-2016 Instruction Type:Patient Education DISCONTINUED - METABOLIC LOPEZ EL, COMPREHENSIVE ([id number]) Indication:Benign essential hypertension (Renamed from Benign essential HTN) Start:03-Nov-2016 Instruction Type:Patient Education DISCONTINUED - HEPATIC FUNCT ION PANEL ([id number]) Indication:Hypercholesterolemia Start:03-Nov-2016 Instruction Type:Patient Education How to access health informa tion online Indication:Cough Start:03-Nov-2016 Instruction Type:Patient Education How to access health informa tion online - Detail Indication:Cough Start:03-Nov-2016 Instruction Type:Patient Education Patient Instructions Indication:Cough Start:03-Nov-2016 Instruction Type:Provider Instructions for Treatment How to access health informa tion online Indication:Anxiety Start:26-Jul-2016 Instruction Type:Patient Education How to access health informa tion online - Detail Indication:Anxiety Start:26-Jul-2016 Instruction Type:Patient Education Patient Instructions Indication:Anxiety Start:26-Jul-2016 Instruction Type:Provider Instructions for Treatment How to access health informa tion online Indication:Flu-like symptoms Start:01-Jun-2016 Instruction Type:Patient Education How to access health informa tion online - Detail Indication:Flu-like symptoms Start:01-Jun-2016 Instruction Type:Patient Education Patient Instructions Indication:Flu-like symptoms Start:01-Jun-2016 Instruction Type:Provider Instructions for Treatment How to access health informa tion online Indication:Vomiting Start:28-Apr-2016 Instruction Type:Patient Education How to access health informa tion online - Detail Indication:Vomiting Start:28-Apr-2016 Instruction Type:Patient Education Patient Instructions Indication:Vomiting Start:28-Apr-2016 Instruction Type:Provider Instructions for Treatment How to access health informa tion online Indication:Benign essential hypertension (Renamed from Benign essential HTN) Start:01-Apr-2016 Instruction Type:Patient Education How to access health informa tion online - Detail Indication:Benign essential hypertension (Renamed from Benign essential HTN) Start:01-Apr-2016 Instruction Type:Patient Education Patient Instructions Indication:Benign essential hypertension (Renamed from Benign essential HTN) Start:01-Apr-2016 Instruction Type:Provider Instructions for Treatment How to access health informa tion online Indication:Headache Start:10-Dec-2015 Instruction Type:Patient Education How to access health informa tion online - Detail Indication:Headache Start:10-Dec-2015 Instruction Type:Patient Education Patient Instructions Indication:Headache Start:10-Dec-2015 Instruction Type:Provider Instructions for Treatment Patient Instructions Indication:Headache Start:09-Dec-2015 Instruction Type:Provider Instructions for Treatment How to access health informa tion online Indication:Dizziness Start:09-Dec-2015 Instruction Type:Patient Education How to access health informa tion online - Detail Indication:Dizziness Start:09-Dec-2015 Instruction Type:Patient Education Patient Instructions Indication:Dizziness Start:09-Dec-2015 Instruction Type:Provider Instructions for Treatment How to access health informa tion online Indication:Hypercholesterolemia Start:12-Nov-2015 Instruction Type:Patient Education How to access health informa tion online - Detail Indication:Hypercholesterolemia Start:12-Nov-2015 Instruction Type:Patient Education Patient Instructions Indication:Hypercholesterolemia Start:12-Nov-2015 Instruction Type:Provider Instructions for Treatment How to access health informa tion online Indication:Hypercholesterolemia Start:16-Jun-2015 Instruction Type:Patient Education How to access health informa tion online - Detail Indication:Hypercholesterolemia Start:16-Jun-2015 Instruction Type:Patient Education Patient Instructions Indication:Hypercholesterolemia Start:16-Jun-2015 Instruction Type:Provider Instructions for Treatment How to access health informa tion online Indication:Hypercholesterolemia Start:25-Nov-2014 Instruction Type:Patient Education How to access health informa tion online - Detail Indication:Hypercholesterolemia Start:25-Nov-2014 Instruction Type:Patient Education Patient Instructions Indication:Hypercholesterolemia Start:25-Nov-2014 Instruction Type:Provider Instructions for Treatment Patient Instructions Indication:Coronary artery disease Start:26-Jul-2014 Instruction Type:Provider Instructions for Treatment Patient Instructions Indication:Hypercholesterolemia Start:29-May-2014 Instruction Type:Provider Instructions for Treatment Patient Instructions Indication:Buerger disease Start:30-Nov-2013 Instruction Type:Provider Instructions for Treatment Patient Instructions Indication:Benign essential hypertension (Renamed from Benign essential HTN) Start:19-Nov-2013 Instruction Type:Provider Instructions for Treatment Patient Instructions Indication:Raynaud's phenomenon Start:13-Aug-2013 Instruction Type:Provider Instructions for Treatment Patient Instructions Indication:Benign essential hypertension (Renamed from Benign essential HTN) Start:18-Jul-2013 Instruction Type:Provider Instructions for Treatment Patient Instructions Indication:Lower urinary tract infection Start:07-Mar-2013 Instruction Type:Provider Instructions for Treatment Patient Instructions Indication:Gastroesophageal reflux disease without esophagitis Start:13-Nov-2012 Instruction Type:Provider Instructions for Treatment Patient Instructions Indication:Cough Start:13-Jul-2012 Instruction Type:Provider Instructions for Treatment Patient Instructions Indication:Allergic Rhinitis Start:25-May-2012 Instruction Type:Provider Instructions for Treatment Patient Instructions Indication:Benign essential hypertension (Renamed from Benign essential HTN) Start:19-Jan-2012 Instruction Type:Provider Instructions for Treatment Name Dates Details How to access health informa tion online Indication:Cigar smoker Start:07-Aug-2019 Instruction Type:Patient Education How to access health informa tion online - Detail Indication:Cigar smoker Start:07-Aug-2019 Instruction Type:Patient Education Patient Instructions Indication:Cigar smoker Start:07-Aug-2019 Instruction Type:Provider Instructions for Treatment How to access health informa tion online Indication:BMI 36.0-36.9,adult Start:18-Jun-2019 Instruction Type:Patient Education How to access health informa tion online - Detail Indication:BMI 36.0-36.9,adult Start:18-Jun-2019 Instruction Type:Patient Education Patient Instructions Indication:BMI 36.0-36.9,adult Start:18-Jun-2019 Instruction Type:Provider Instructions for Treatment How to access health informa tion online Indication:Nonsmoker Start:18-May-2019 Instruction Type:Patient Education How to access health informa tion online - Detail Indication:Nonsmoker Start:18-May-2019 Instruction Type:Patient Education Patient Instructions Indication:Nonsmoker Start:18-May-2019 Instruction Type:Provider Instructions for Treatment How to access health informa tion online Indication:BMI 36.0-36.9,adult Start:15-May-2019 Instruction Type:Patient Education How to access health informa tion online - Detail Indication:BMI 36.0-36.9,adult Start:15-May-2019 Instruction Type:Patient Education Patient Instructions Indication:BMI 36.0-36.9,adult Start:15-May-2019 Instruction Type:Provider Instructions for Treatment How to access health informa tion online Indication:Cigar smoker Start:04-Aug-2018 Instruction Type:Patient Education How to access health informa tion online - Detail Indication:Cigar smoker Start:04-Aug-2018 Instruction Type:Patient Education Patient Instructions Indication:BMI 33.0-33.9,adult Start:04-Aug-2018 Instruction Type:Provider Instructions for Treatment How to access health informa tion online Indication:Cigar smoker Start:10-Jul-2018 Instruction Type:Patient Education How to access health informa tion online - Detail Indication:Cigar smoker Start:10-Jul-2018 Instruction Type:Patient Education Patient Instructions Indication:Persistent headaches Start:10-Jul-2018 Instruction Type:Provider Instructions for Treatment How to access health informa tion online Indication:BMI 36.0-36.9,adult Start:25-Apr-2018 Instruction Type:Patient Education How to access health informa tion online - Detail Indication:BMI 36.0-36.9,adult Start:25-Apr-2018 Instruction Type:Patient Education Patient Instructions Indication:BMI 36.0-36.9,adult Start:25-Apr-2018 Instruction Type:Provider Instructions for Treatment How to access health informa tion online Indication:Attention deficit Start:10-Apr-2018 Instruction Type:Patient Education How to access health informa tion online - Detail Indication:Attention deficit Start:10-Apr-2018 Instruction Type:Patient Education Patient Instructions Indication:Attention deficit Start:10-Apr-2018 Instruction Type:Provider Instructions for Treatment How to access health informa tion online Indication:BMI 35.0-35.9,adult Start:02-Jan-2018 Instruction Type:Patient Education How to access health informa tion online - Detail Indication:BMI 35.0-35.9,adult Start:02-Jan-2018 Instruction Type:Patient Education Patient Instructions Indication:Elevated blood pressure reading Start:02-Jan-2018 Instruction Type:Provider Instructions for Treatment How to access health informa tion online Indication:Current smoker Start:23-Nov-2017 Instruction Type:Patient Education Patient Instructions Indication:Current smoker Start:23-Nov-2017 Instruction Type:Provider Instructions for Treatment How to access health informa tion online Indication:Impaired fasting glucose Start:06-Sep-2017 Instruction Type:Patient Education How to access health informa tion online - Detail Indication:Impaired fasting glucose Start:06-Sep-2017 Instruction Type:Patient Education Patient Instructions Indication:Anxiety Start:06-Sep-2017 Instruction Type:Provider Instructions for Treatment How to access health informa tion online Indication:Elevated liver enzymes Start:07-Jun-2017 Instruction Type:Patient Education How to access health informa tion online - Detail Indication:Elevated liver enzymes Start:07-Jun-2017 Instruction Type:Patient Education Patient Instructions Indication:Screening for prostate cancer Start:07-Jun-2017 Instruction Type:Provider Instructions for Treatment How to access health informa tion online Indication:BMI 34.0-34.9,adult Start:21-Dec-2016 Instruction Type:Patient Education How to access health informa tion online - Detail Indication:BMI 34.0-34.9,adult Start:21-Dec-2016 Instruction Type:Patient Education Patient Instructions Indication:BMI 34.0-34.9,adult Start:21-Dec-2016 Instruction Type:Provider Instructions for Treatment How to access health informa tion online Indication:Cough Start:19-Nov-2016 Instruction Type:Patient Education How to access health informa tion online - Detail Indication:Cough Start:19-Nov-2016 Instruction Type:Patient Education Patient Instructions Indication:Cough Start:19-Nov-2016 Instruction Type:Provider Instructions for Treatment DISCONTINUED - METABOLIC LOPEZ EL, COMPREHENSIVE ([id number]) Indication:ALT (SGPT) level raised Start:03-Nov-2016 Instruction Type:Patient Education DISCONTINUED - LIPID PANEL ( [id number]) Indication:Benign essential hypertension (Renamed from Benign essential HTN) Start:03-Nov-2016 Instruction Type:Patient Education DISCONTINUED - METABOLIC LOPEZ EL, COMPREHENSIVE ([id number]) Indication:Benign essential hypertension (Renamed from Benign essential HTN) Start:03-Nov-2016 Instruction Type:Patient Education DISCONTINUED - HEPATIC FUNCT ION PANEL ([id number]) Indication:Hypercholesterolemia Start:03-Nov-2016 Instruction Type:Patient Education How to access health informa tion online Indication:Cough Start:03-Nov-2016 Instruction Type:Patient Education How to access health informa tion online - Detail Indication:Cough Start:03-Nov-2016 Instruction Type:Patient Education Patient Instructions Indication:Cough Start:03-Nov-2016 Instruction Type:Provider Instructions for Treatment How to access health informa tion online Indication:Anxiety Start:26-Jul-2016 Instruction Type:Patient Education How to access health informa tion online - Detail Indication:Anxiety Start:26-Jul-2016 Instruction Type:Patient Education Patient Instructions Indication:Anxiety Start:26-Jul-2016 Instruction Type:Provider Instructions for Treatment How to access health informa tion online Indication:Flu-like symptoms Start:01-Jun-2016 Instruction Type:Patient Education How to access health informa tion online - Detail Indication:Flu-like symptoms Start:01-Jun-2016 Instruction Type:Patient Education Patient Instructions Indication:Flu-like symptoms Start:01-Jun-2016 Instruction Type:Provider Instructions for Treatment How to access health informa tion online Indication:Vomiting Start:28-Apr-2016 Instruction Type:Patient Education How to access health informa tion online - Detail Indication:Vomiting Start:28-Apr-2016 Instruction Type:Patient Education Patient Instructions Indication:Vomiting Start:28-Apr-2016 Instruction Type:Provider Instructions for Treatment How to access health informa tion online Indication:Benign essential hypertension (Renamed from Benign essential HTN) Start:01-Apr-2016 Instruction Type:Patient Education How to access health informa tion online - Detail Indication:Benign essential hypertension (Renamed from Benign essential HTN) Start:01-Apr-2016 Instruction Type:Patient Education Patient Instructions Indication:Benign essential hypertension (Renamed from Benign essential HTN) Start:01-Apr-2016 Instruction Type:Provider Instructions for Treatment How to access health informa tion online Indication:Headache Start:10-Dec-2015 Instruction Type:Patient Education How to access health informa tion online - Detail Indication:Headache Start:10-Dec-2015 Instruction Type:Patient Education Patient Instructions Indication:Headache Start:10-Dec-2015 Instruction Type:Provider Instructions for Treatment Patient Instructions Indication:Headache Start:09-Dec-2015 Instruction Type:Provider Instructions for Treatment How to access health informa tion online Indication:Dizziness Start:09-Dec-2015 Instruction Type:Patient Education How to access health informa tion online - Detail Indication:Dizziness Start:09-Dec-2015 Instruction Type:Patient Education Patient Instructions Indication:Dizziness Start:09-Dec-2015 Instruction Type:Provider Instructions for Treatment How to access health informa tion online Indication:Hypercholesterolemia Start:12-Nov-2015 Instruction Type:Patient Education How to access health informa tion online - Detail Indication:Hypercholesterolemia Start:12-Nov-2015 Instruction Type:Patient Education Patient Instructions Indication:Hypercholesterolemia Start:12-Nov-2015 Instruction Type:Provider Instructions for Treatment How to access health informa tion online Indication:Hypercholesterolemia Start:16-Jun-2015 Instruction Type:Patient Education How to access health informa tion online - Detail Indication:Hypercholesterolemia Start:16-Jun-2015 Instruction Type:Patient Education Patient Instructions Indication:Hypercholesterolemia Start:16-Jun-2015 Instruction Type:Provider Instructions for Treatment How to access health informa tion online Indication:Hypercholesterolemia Start:25-Nov-2014 Instruction Type:Patient Education How to access health informa tion online - Detail Indication:Hypercholesterolemia Start:25-Nov-2014 Instruction Type:Patient Education Patient Instructions Indication:Hypercholesterolemia Start:25-Nov-2014 Instruction Type:Provider Instructions for Treatment Patient Instructions Indication:Coronary artery disease Start:26-Jul-2014 Instruction Type:Provider Instructions for Treatment Patient Instructions Indication:Hypercholesterolemia Start:29-May-2014 Instruction Type:Provider Instructions for Treatment Patient Instructions Indication:Buerger disease Start:30-Nov-2013 Instruction Type:Provider Instructions for Treatment Patient Instructions Indication:Benign essential hypertension (Renamed from Benign essential HTN) Start:19-Nov-2013 Instruction Type:Provider Instructions for Treatment Patient Instructions Indication:Raynaud's phenomenon Start:13-Aug-2013 Instruction Type:Provider Instructions for Treatment Patient Instructions Indication:Benign essential hypertension (Renamed from Benign essential HTN) Start:18-Jul-2013 Instruction Type:Provider Instructions for Treatment Patient Instructions Indication:Lower urinary tract infection Start:07-Mar-2013 Instruction Type:Provider Instructions for Treatment Patient Instructions Indication:Gastroesophageal reflux disease without esophagitis Start:13-Nov-2012 Instruction Type:Provider Instructions for Treatment Patient Instructions Indication:Cough Start:13-Jul-2012 Instruction Type:Provider Instructions for Treatment Patient Instructions Indication:Allergic Rhinitis Start:25-May-2012 Instruction Type:Provider Instructions for Treatment Patient Instructions Indication:Benign essential hypertension (Renamed from Benign essential HTN) Start:19-Jan-2012 Instruction Type:Provider Instructions for Treatment Health Concerns Infection Onset Date Last Indicated Resolved Time COVID-19 Rule-Out 08/27/2021 08/27/2021 08/27/2021 2:11 AM EDT Reason for Referral Specialty Diagnoses / Procedures Referred By Tran rosales Referred To Contact Diagnoses Coronary artery disease involving [place] coronary artery of [place] heart without angina pectoris Procedures CONSULT TO MEDICAL GENETICS - CARDIOVASCULAR OFFICE/OUTPATIENT [facility] 60-74 MINUTES MEDICAL GENETICS COUNSELING EACH 30 MINUTES Samira Chang BARREL TESTER AND DRAINER.AIRCRAFT AVIONICS TECHNICIAN [address] [facility] [address] [place] [address] [employer] [address] [address] Referral ID Status Reason Start Date Expiration Date Visits Requested Visits Authorized [id number] Pending Review PCP Requested Referral Auto-Generate d Referral 10/21/2021 10/21/2022 1 1 Specialty Diagnoses / Procedures Referred By Tran rosales Referred To Contact Radiology Diagnoses Strain of tendon of left rotator cuff, initial encounter Procedures MR shoulder left wo IV contrast Billy Barros, BARREL TESTER AND DRAINER - AIRCRAFT AVIONICS TECHNICIAN [address] [place] [address] Referral ID Status Reason Start Date Expiration Date V isits Requested Visits Authorized [id number] Pending Review 02/10/2023 02/10/2024 1 1 Referral ID Status Reason Start Date Expiration Date Visits Re quested Visits Authorized [id number] Closed 02/10/2023 02/10/2024 1 1 Chief Complaint and Reason for Visit Chief Complaint POISON MELIZA Lower back pain & medrefills Poison meliza CMP CBC W/DIFF LIPID PSA medication refills Reason for Visit Poison meliza dermatiti s Pruritic dermatitis Anxiety Chronic lower back pain Poison meliza dermatitis Pruritic dermatitis Hyperlipidemia LDL goal <130 Hypertension Hypothyroid Hyperlipidemia LDL goal <130 Hypertension Chief Complaint Admit Date Back pain X2 weeks March 06, 2024 3:31pm Back pain April 24, 2024 3 :22pm Back pain April 30, 2024 5 :46pm LUMBAR SPINE May 08, 2024 8 :02am Room 1 May 08, 2024 8 :47am LUMBAR PAIN June 11, 2024 3:07 pm Reason for Visit Admit Date Lower back pain March 06, 2024 3:31pm Sciatic pain March 06, 2024 3:31pm Bilateral sciatica April 24, 2024 3 :22pm Sciatic pain April 24, 2024 3 :22pm Bilateral sciatica April 30, 2024 5 :46pm 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 April 30, 2024 5:46pm Degenerative disc disease, lumbar Januar y 2024 8:02am Lumbar stenosis with neurogenic claudica tion May 08, 2024 8:02am Scoliosis May 08, 2024 8 :02am Additional Source Comments (unrecognized sect ion and content) No Status Records FoundNo Status Records FoundNo Status Records FoundNo Status Records FoundNo Status Records FoundNo Status Records FoundNo Status Records Found INFORMATION SOURCE (unrecogn ized section and content) DATE CREATED AUTHOR 12/17/2017 [facility] DATE CREATED AUTHOR AUTHOR'S ORGANIZ ATION 08/06/2018 [facility] DATE CREATED AUTHOR AUTHOR'S ORGANIZ ATION 02/16/2023 [facility] DATE CREATED AUTHOR AUTHOR'S ORGANIZ ATION 04/26/2024 [facility] DATE CREATED AUTHOR AUTHOR'S ORGANIZ ATION 05/01/2024 [facility] DATE CREATED AUTHOR AUTHOR'S ORGANIZ ATION 06/04/2024 [facility] DATE CREATED AUTHOR AUTHOR'S ORGANIZ ATION 06/29/2024 [facility] Source Comments (unrecognize d section and content) In the event this informatio n is protected by the Federal Confidentiality of Alcohol and Drug Abuse Patient Records regulations: The Federal rules restrict any use of the information to criminally investigate or prosecute any alcohol or drug abuse patient.[facility] the event this information is protected by the Federal Confidentiality of Alcohol and Drug Abuse Patient Records regulations: The Federal rules restrict any use of the information to criminally investigate or prosecute any alcohol or drug abuse patient.[facility] CenterIn the event this information is protected by the Federal Confidentiality of Alcohol and Drug Abuse Patient Records regulations: The Federal rules restrict any use of the information to criminally investigate or prosecute any alcohol or drug abuse patient.[facility] CenterIn the event this information is protected by the Federal Confidentiality of Alcohol and Drug Abuse Patient Records regulations: The Federal rules restrict any use of the information to criminally investigate or prosecute any alcohol or drug abuse patient.[facility] CenterIn the event this information is protected by the Federal Confidentiality of Alcohol and Drug Abuse Patient Records regulations: The Federal rules restrict any use of the information to criminally investigate or prosecute any alcohol or drug abuse patient.[facility] CenterIn the event this information is protected by the Federal Confidentiality of Alcohol and Drug Abuse Patient Records regulations: The Federal rules restrict any use of the information to criminally investigate or prosecute any alcohol or drug abuse patient.[facility] CenterIn the event this information is protected by the Federal Confidentiality of Alcohol and Drug Abuse Patient Records regulations: The Federal rules restrict any use of the information to criminally investigate or prosecute any alcohol or drug abuse patient.[facility] CenterIn the event this information is protected by the Federal Confidentiality of Alcohol and Drug Abuse Patient Records regulations: The Federal rules restrict any use of the information to criminally investigate or prosecute any alcohol or drug abuse patient.[facility] CenterIn the event this information is protected by the Federal Confidentiality of Alcohol and Drug Abuse Patient Records regulations: The Federal rules restrict any use of the information to criminally investigate or prosecute any alcohol or drug abuse patient.[facility] CenterIn the event this information is protected by the Federal Confidentiality of Alcohol and Drug Abuse Patient Records regulations: The Federal rules restrict any use of the information to criminally investigate or prosecute any alcohol or drug abuse patient.[facility] CenterIn the event this information is protected by the Federal Confidentiality of Alcohol and Drug Abuse Patient Records regulations: The Federal rules restrict any use of the information to criminally investigate or prosecute any alcohol or drug abuse patient.[facility] CenterIn the event this information is protected by the Federal Confidentiality of Alcohol and Drug Abuse Patient Records regulations: The Federal rules restrict any use of the information to criminally investigate or prosecute any alcohol or drug abuse patient.[facility] CenterIn the event this information is protected by the Federal Confidentiality of Alcohol and Drug Abuse Patient Records regulations: The Federal rules restrict any use of the information to criminally investigate or prosecute any alcohol or drug abuse patient.[facility] CenterIn the event this information is protected by the Federal Confidentiality of Alcohol and Drug Abuse Patient Records regulations: The Federal rules restrict any use of the information to criminally investigate or prosecute any alcohol or drug abuse patient.[facility] CenterIn the event this information is protected by the Federal Confidentiality of Alcohol and Drug Abuse Patient Records regulations: The Federal rules restrict any use of the information to criminally investigate or prosecute any alcohol or drug abuse patient.[facility] CenterIn the event this information is protected by the Federal Confidentiality of Alcohol and Drug Abuse Patient Records regulations: The Federal rules restrict any use of the information to criminally investigate or prosecute any alcohol or drug abuse patient.[facility] CenterIn the event this information is protected by the Federal Confidentiality of Alcohol and Drug Abuse Patient Records regulations: The Federal rules restrict any use of the information to criminally investigate or prosecute any alcohol or drug abuse patient.[facility] CenterIn the event this information is protected by the Federal Confidentiality of Alcohol and Drug Abuse Patient Records regulations: The Federal rules restrict any use of the information to criminally investigate or prosecute any alcohol or drug abuse patient.[facility] CenterIn the event this information is protected by the Federal Confidentiality of Alcohol and Drug Abuse Patient Records regulations: The Federal rules restrict any use of the information to criminally investigate or prosecute any alcohol or drug abuse patient.[facility] CenterIn the event this information is protected by the Federal Confidentiality of Alcohol and Drug Abuse Patient Records regulations: The Federal rules restrict any use of the information to criminally investigate or prosecute any alcohol or drug abuse patient.[facility] CenterIn the event this information is protected by the Federal Confidentiality of Alcohol and Drug Abuse Patient Records regulations: The Federal rules restrict any use of the information to criminally investigate or prosecute any alcohol or drug abuse patient.[facility] CenterIn the event this information is protected by the Federal Confidentiality of Alcohol and Drug Abuse Patient Records regulations: The Federal rules restrict any use of the information to criminally investigate or prosecute any alcohol or drug abuse patient.[facility] CenterIn the event this information is protected by the Federal Confidentiality of Alcohol and Drug Abuse Patient Records regulations: The Federal rules restrict any use of the information to criminally investigate or prosecute any alcohol or drug abuse patient.[facility] CenterIn the event this information is protected by the Federal Confidentiality of Alcohol and Drug Abuse Patient Records regulations: The Federal rules restrict any use of the information to criminally investigate or prosecute any alcohol or drug abuse patient.[facility] CenterIn the event this information is protected by the Federal Confidentiality of Alcohol and Drug Abuse Patient Records regulations: The Federal rules restrict any use of the information to criminally investigate or prosecute any alcohol or drug abuse patient.[facility] CenterIn the event this information is protected by the Federal Confidentiality of Alcohol and Drug Abuse Patient Records regulations: The Federal rules restrict any use of the information to criminally investigate or prosecute any alcohol or drug abuse patient.[facility] CenterIn the event this information is protected by the Federal Confidentiality of Alcohol and Drug Abuse Patient Records regulations: The Federal rules restrict any use of the information to criminally investigate or prosecute any alcohol or drug abuse patient.[facility] CenterIn the event this information is protected by the Federal Confidentiality of Alcohol and Drug Abuse Patient Records regulations: The Federal rules restrict any use of the information to criminally investigate or prosecute any alcohol or drug abuse patient.[facility] CenterIn the event this information is protected by the Federal Confidentiality of Alcohol and Drug Abuse Patient Records regulations: The Federal rules restrict any use of the information to criminally investigate or prosecute any alcohol or drug abuse patient.[facility] CenterIn the event this information is protected by the Federal Confidentiality of Alcohol and Drug Abuse Patient Records regulations: The Federal rules restrict any use of the information to criminally investigate or prosecute any alcohol or drug abuse patient.[facility] CenterIn the event this information is protected by the Federal Confidentiality of Alcohol and Drug Abuse Patient Records regulations: The Federal rules restrict any use of the information to criminally investigate or prosecute any alcohol or drug abuse patient.[facility] CenterIn the event this information is protected by the Federal Confidentiality of Alcohol and Drug Abuse Patient Records regulations: The Federal rules restrict any use of the information to criminally investigate or prosecute any alcohol or drug abuse patient.[facility] CenterIn the event this information is protected by the Federal Confidentiality of Alcohol and Drug Abuse Patient Records regulations: The Federal rules restrict any use of the information to criminally investigate or prosecute any alcohol or drug abuse patient.[facility] CenterIn the event this information is protected by the Federal Confidentiality of Alcohol and Drug Abuse Patient Records regulations: The Federal rules restrict any use of the information to criminally investigate or prosecute any alcohol or drug abuse patient.[facility] CenterIn the event this information is protected by the Federal Confidentiality of Alcohol and Drug Abuse Patient Records regulations: The Federal rules restrict any use of the information to criminally investigate or prosecute any alcohol or drug abuse patient.[facility] CenterIn the event this information is protected by the Federal Confidentiality of Alcohol and Drug Abuse Patient Records regulations: The Federal rules restrict any use of the information to criminally investigate or prosecute any alcohol or drug abuse patient.[facility] CenterIn the event this information is protected by the Federal Confidentiality of Alcohol and Drug Abuse Patient Records regulations: The Federal rules restrict any use of the information to criminally investigate or prosecute any alcohol or drug abuse patient.[facility] CenterIn the event this information is protected by the Federal Confidentiality of Alcohol and Drug Abuse Patient Records regulations: The Federal rules restrict any use of the information to criminally investigate or prosecute any alcohol or drug abuse patient.[facility] CenterIn the event this information is protected by the Federal Confidentiality of Alcohol and Drug Abuse Patient Records regulations: The Federal rules restrict any use of the information to criminally investigate or prosecute any alcohol or drug abuse patient.[facility] CenterIn the event this information is protected by the Federal Confidentiality of Alcohol and Drug Abuse Patient Records regulations: The Federal rules restrict any use of the information to criminally investigate or prosecute any alcohol or drug abuse patient.[facility] CenterIn the event this information is protected by the Federal Confidentiality of Alcohol and Drug Abuse Patient Records regulations: The Federal rules restrict any use of the information to criminally investigate or prosecute any alcohol or drug abuse patient.[facility] CenterIn the event this information is protected by the Federal Confidentiality of Alcohol and Drug Abuse Patient Records regulations: The Federal rules restrict any use of the information to criminally investigate or prosecute any alcohol or drug abuse patient.[facility] CenterIn the event this information is protected by the Federal Confidentiality of Alcohol and Drug Abuse Patient Records regulations: The Federal rules restrict any use of the information to criminally investigate or prosecute any alcohol or drug abuse patient.[facility] CenterIn the event this information is protected by the Federal Confidentiality of Alcohol and Drug Abuse Patient Records regulations: The Federal rules restrict any use of the information to criminally investigate or prosecute any alcohol or drug abuse patient.[facility] CenterIn the event this information is protected by the Federal Confidentiality of Alcohol and Drug Abuse Patient Records regulations: The Federal rules restrict any use of the information to criminally investigate or prosecute any alcohol or drug abuse patient.[facility] CenterIn the event this information is protected by the Federal Confidentiality of Alcohol and Drug Abuse Patient Records regulations: The Federal rules restrict any use of the information to criminally investigate or prosecute any alcohol or drug abuse patient.[facility] CenterIn the event this information is protected by the Federal Confidentiality of Alcohol and Drug Abuse Patient Records regulations: The Federal rules restrict any use of the information to criminally investigate or prosecute any alcohol or drug abuse patient.[facility] CenterIn the event this information is protected by the Federal Confidentiality of Alcohol and Drug Abuse Patient Records regulations: The Federal rules restrict any use of the information to criminally investigate or prosecute any alcohol or drug abuse patient.[facility] Reason for Visit (unrecogniz ed section and content) Reason Comments Follow Up hospital f/u post he art cath Reason Comments Results Reason Comments Refill Request Reason Comments Home Care Confirmation Call Reason Comments Follow Up Phone Call all clear Reason Comments Post Op 09/01/21 CABG Specialty Diagnoses / Procedures Referred By Tran rosales Referred To Contact [facility] Home Care [address] [place] [id number] Referral ID Status Reason Start Date Expiration Date Visits Re quested Visits Authorized [id number] 1 1 Reason Comments Post Op Consult lightheadness after walking Reason Comments Established Patient Reason Comments Home Care Reason Comments Cardiac Rehab Initial Assessment Reason Comments Cardiac Rehab Reason Comments Post Op CABG Reason Comments Radio Gen RMP Reason Comments Cardiology Follow Up hospital follow up Reason Comments Cardiac Rehab 30 day assessment Reason Comments Appointment Reason Comments thrombophilia Reason Comments Cardiac Rehab 60 day assessment Reason Comments CARD Follow Up 3 Month CAD Reason Onset Date Comments Refill Request 03/18/2022 Reason Onset Date Comments Refill Request 11/22/2022 Reason Comments Shoulder Injury Reason Onset Date Comments Referral 02/07/2023 Specialty Diagnoses / Procedures Referred By Contac t Referred To Contact Radiology Diagnoses Strain of tendon of left rotator cuff, initial encounter Procedures MR shoulder left wo IV contrast Billy Barros, BARREL TESTER AND DRAINER - AIRCRAFT AVIONICS TECHNICIAN [address] [place] [address] Referral ID Status Reason Start Date Expiration Date Visits Re quested Visits Authorized [id number] Closed 02/10/2023 02/10/2024 1 1 Reason Comments Established Patient Follow-Up Reason Comments Record request for taxes Reason Comments Follow Up Care Teams (unrecognized sec tion and content) Surveillance Camera Technician Relationship Specialty Start Date End Date Jordyn Beltran, BARREL TESTER AND DRAINER.AIRCRAFT AVIONICS TECHNICIAN [address] [place] [address] PCP - General Family Practice 01/06/21 Surveillance Camera Technician Relationship Specialty Start Date End Date Jordyn Beltran, BARREL TESTER AND DRAINER.AIRCRAFT AVIONICS TECHNICIAN [address] [place] [address] PCP - General Family Practice 01/06/21 Surveillance Camera Technician Relationship Specialty Start Date End Date Jordyn Beltran, BARREL TESTER AND DRAINER.AIRCRAFT AVIONICS TECHNICIAN [address] [place] [address] PCP - General Family Practice 01/06/21 Surveillance Camera Technician Relationship Specialty Start Date End Date Jordyn Beltran, BARREL TESTER AND DRAINER.AIRCRAFT AVIONICS TECHNICIAN [address] [place] [address] PCP - General Family Practice 01/06/21 Surveillance Camera Technician Relationship Specialty Start Date End Date Jordyn Beltran, BARREL TESTER AND DRAINER.AIRCRAFT AVIONICS TECHNICIAN [address] [place] [address] PCP - General Family Practice 01/06/21 Robson Beck MD [address] [place] [address] Home Care Physician Cardiology 09/05/21 Surveillance Camera Technician Relationship Specialty Start Date End Date Jordyn Beltran, BARREL TESTER AND DRAINER.AIRCRAFT AVIONICS TECHNICIAN [address] [place] [address] PCP - General Family Practice 01/06/21 Robson Beck MD [address] [place] [address] Home Care Physician Cardiology 09/05/21 Andrea Aguilar, ENR[place] [address] [place], [place] [id number] Bull Fiddle Player Post Acute Care 09/08/21 Surveillance Camera Technician Relationship Specialty Start Date End Date Jordyn Beltran, BARREL TESTER AND DRAINER.AIRCRAFT AVIONICS TECHNICIAN [address] [place] [address] PCP - General Family Practice 01/06/21 Robson Beck MD [address] [place] [address] Home Care Physician Cardiology 09/05/21 Andrea Aguilar, ENRICO [address] [place] [address] Bull Fiddle Player Post Acute Care 09/08/21 Man Mayer MD [address] [address] Cardiology 09/14/21 Surveillance Camera Technician Relationship Specialty Start Date End Date Jordyn Beltran, BARREL TESTER AND DRAINER.AIRCRAFT AVIONICS TECHNICIAN [address] [place] [address] PCP - General Family Practice 01/06/21 Robson Beck MD [address] [place] [address] Home Care Physician Cardiology 09/05/21 Andrea Aguilar, RN [address] [facility] [place] [address] Bull Fiddle Player Post Acute Care 09/08/21 Man Mayer MD [address] [place] [address] Cardiology 09/14/21 Surveillance Camera Technician Relationship Specialty Start Date End Date Jordyn Beltran, BARREL TESTER AND DRAINER.AIRCRAFT AVIONICS TECHNICIAN [address] [place] [address] PCP - General Family Practice 01/06/21 Robson Beck MD [address] [place] [address] Home Care Physician Cardiology 09/05/21 Andrea Aguilar, ENRICO [address] [facility] [place] [address] Bull Fiddle Player Post Acute Care 09/08/21 Man Mayer MD [address] [place] [address] Cardiology 09/14/21 Surveillance Camera Technician Relationship Specialty Start Date End Date Jordyn Beltran, BARREL TESTER AND DRAINER.AIRCRAFT AVIONICS TECHNICIAN [address] [place] [address] PCP - General Family Practice 01/06/21 Robson Beck MD [address] [place] [address] Home Care Physician Cardiology 09/05/21 Andrea Aguilar RN [address] [facility] [place] [address] Bull Fiddle Player Post Acute Care 09/08/21 Man Mayer MD [address] [place] [address] Cardiology 09/14/21 Surveillance Camera Technician Relationship Specialty Start Date End Date Jordyn Beltran, BARREL TESTER AND DRAINER.AIRCRAFT AVIONICS TECHNICIAN [address] [place] [address] PCP - General Family Practice 01/06/21 Robson Beck MD [address] [place] [address] Home Care Physician Cardiology 09/05/21 Andrea Aguilar, ENRICO [address] [place] [address] Bull Fiddle Player Post Acute Care 09/08/21 Man Mayer MD [address] [place] [address] Cardiology 09/14/21 Surveillance Camera Technician Relationship Specialty Start Date End Date Jordyn Beltran, BARREL TESTER AND DRAINER.AIRCRAFT AVIONICS TECHNICIAN [address] [place] [address] PCP - General Family Practice 01/06/21 Robson Beck MD [address] [place] [address] Home Care Physician Cardiology 09/05/21 Andrea Aguilar, ENRICO [address] [place] [address] Bull Fiddle Player Post Acute Care 09/08/21 Man Mayer MD [address] [place] [address] Cardiology 09/14/21 Surveillance Camera Technician Relationship Specialty Start Date End Date Jordyn Beltran, BARREL TESTER AND DRAINER.AIRCRAFT AVIONICS TECHNICIAN [address] [place] [address] PCP - General Family Practice 01/06/21 Robson Beck MD [address] [place] [address] Home Care Physician Cardiology 09/05/21 Andrea Aguilar, RN [address] [place] [address] Bull Fiddle Player Post Acute Care 09/08/21 Man Mayer MD [address] [place] [phone] Cardiology 09/14/21 Surveillance Camera Technician Relationship Specialty Start Date End Date Jordyn Beltran, BARREL TESTER AND DRAINER.AIRCRAFT AVIONICS TECHNICIAN [address] [place], [place] [address] PCP - General Family Practice 01/06/21 Robson Beck MD [address] [place] [address] Home Care Physician Cardiology 09/05/21 Andrea Aguilar, RN [address] [place] [address] Bull Fiddle Player Post Acute Care 09/08/21 Man Mayer MD [address] [place] [phone] Cardiology 09/14/21 Surveillance Camera Technician Relationship Specialty Start Date End Date Jordyn Beltran, BARREL TESTER AND DRAINER.AIRCRAFT AVIONICS TECHNICIAN [address] [place] [address] PCP - General Family Practice 01/06/21 Robson Beck MD [address] [place] [address] Home Care Physician Cardiology 09/05/21 Man Mayer MD [address] [place] [address] [phone] Cardiology 09/14/21 Surveillance Camera Technician Relationship Specialty Start Date End Date Jordyn Beltran, BARREL TESTER AND DRAINER.AIRCRAFT AVIONICS TECHNICIAN [address] [place] [address] PCP - General Family Practice 01/06/21 Robson Beck MD [address] [place] [address] Home Care Physician Cardiology 09/05/21 Man Mayer MD [address] [place] [address] Cardiology 09/14/21 Surveillance Camera Technician Relationship Specialty Start Date End Date Jordyn Beltran, BARREL TESTER AND DRAINER.AIRCRAFT AVIONICS TECHNICIAN [address] [place] [address] PCP - General Family Practice 01/06/21 Robson Beck MD [address] [place] [address] Home Care Physician Cardiology 09/05/21 Man Mayer MD [address] [address] [place] [address] Cardiology 09/14/21 Surveillance Camera Technician Relationship Specialty Start Date End Date Jordyn Beltran, BARREL TESTER AND DRAINER.AIRCRAFT AVIONICS TECHNICIAN [address] [place] [address] PCP - General Family Practice 01/06/21 Robson Beck MD [address] [place] [address] Home Care Physician Cardiology 09/05/21 Man Mayer MD [address] [place] [address] Cardiology 09/14/21 Surveillance Camera Technician Relationship Specialty Start Date End Date Jordyn Beltran, BARREL TESTER AND DRAINER.AIRCRAFT AVIONICS TECHNICIAN [address] [place] [address] PCP - General Family Practice 01/06/21 Robson Beck MD [address] [place] [address] Home Care Physician Cardiology 09/05/21 Man Mayer MD [address] [place] [phone] Cardiology 09/14/21 Surveillance Camera Technician Relationship Specialty Start Date End Date Jordyn Beltran, BARREL TESTER AND DRAINER.AIRCRAFT AVIONICS TECHNICIAN [address] [place] [address] PCP - General Family Practice 01/06/21 Robson Beck MD [address] [place] [address] Home Care Physician Cardiology 09/05/21 Man Mayer MD [address] [place] [phone] Cardiology 09/14/21 Surveillance Camera Technician Relationship Specialty Start Date End Date Jordyn Beltran, BARREL TESTER AND DRAINER.AIRCRAFT AVIONICS TECHNICIAN [address] [place] [address] PCP - General Family Practice 01/06/21 Robson Beck MD [address] [place] [address] Home Care Physician Cardiology 09/05/21 Man Mayer MD [address] [place] [address] [phone] Cardiology 09/14/21 Surveillance Camera Technician Relationship Specialty Start Date End Date Jordyn Beltran, BARREL TESTER AND DRAINER.AIRCRAFT AVIONICS TECHNICIAN [address] [place], [place] [id number] PCP - General Family Practice 01/06/21 Robson Beck MD [address] [place] [address] Home Care Physician Cardiology 09/05/21 Man Mayer MD [address] [place] [address] Cardiology 09/14/21 Surveillance Camera Technician Relationship Specialty Start Date End Date Jordyn Beltran, BARREL TESTER AND DRAINER.AIRCRAFT AVIONICS TECHNICIAN [address] [place] [address] PCP - General Family Practice 01/06/21 Robson Beck MD [address] [place] [address] Home Care Physician Cardiology 09/05/21 Man Mayer MD [address] [place] [phone] Cardiology 09/14/21 Surveillance Camera Technician Relationship Specialty Start Date End Date Jordyn Beltran, BARREL TESTER AND DRAINER.AIRCRAFT AVIONICS TECHNICIAN [address] [place] [address] PCP - General Family Practice 01/06/21 Robson Beck MD [address] [place] [address] Home Care Physician Cardiology 09/05/21 Man Mayer MD [address] [place] [address] Cardiology 09/14/21 Surveillance Camera Technician Relationship Specialty Start Date End Date Jordyn Beltran, BARREL TESTER AND DRAINER.AIRCRAFT AVIONICS TECHNICIAN [address] [place] [address] PCP - General Family Practice 01/06/21 Robson Beck MD [address] [place] [address] Home Care Physician Cardiology 09/05/21 Man Mayer MD [address] [place] [phone] Cardiology 09/14/21 Surveillance Camera Technician Relationship Specialty Start Date End Date Jordyn Beltran, BARREL TESTER AND DRAINER.AIRCRAFT AVIONICS TECHNICIAN [address] [place] [address] PCP - General Family Practice 01/06/21 Robson Beck MD [address] [place] [address] Home Care Physician Cardiology 09/05/21 Man Mayer MD [address] [place] [phone] Cardiology 09/14/21 Surveillance Camera Technician Relationship Specialty Start Date End Date Jordyn Beltran, BARREL TESTER AND DRAINER.AIRCRAFT AVIONICS TECHNICIAN [address] [place] [address] PCP - General Family Practice 01/06/21 Robson Beck MD [address] [place] [address] Home Care Physician Cardiology 09/05/21 Man Mayer MD [address] [place] [phone] Cardiology 09/14/21 Surveillance Camera Technician Relationship Specialty Start Date End Date Jordyn Beltran, BARREL TESTER AND DRAINER.AIRCRAFT AVIONICS TECHNICIAN [address] [place] [address] PCP - General Family Practice 01/06/21 Robson Beck MD [address] [place] [address] Home Care Physician Cardiology 09/05/21 Man Mayer MD [address] [place] [phone] Cardiology 09/14/21 Surveillance Camera Technician Relationship Specialty Start Date End Date Jordyn Beltran, BARREL TESTER AND DRAINER.AIRCRAFT AVIONICS TECHNICIAN [address] [place] [address] PCP - General Family Practice 01/06/21 Robson Beck MD [address] [place] [address] Home Care Physician Cardiology 09/05/21 Man Mayer MD [address] [place] [phone] Cardiology 09/14/21 Surveillance Camera Technician Relationship Specialty Start Date End Date Jordyn Beltran, BARREL TESTER AND DRAINER.AIRCRAFT AVIONICS TECHNICIAN [address] [place] [address] PCP - General Family Practice 01/06/21 Robson Beck MD [address] [place] [address] Home Care Physician Cardiology 09/05/21 Man Mayer MD [address] [place] [phone] Cardiology 09/14/21 Surveillance Camera Technician Relationship Specialty Start Date End Date Jordyn Beltran, BARREL TESTER AND DRAINER.AIRCRAFT AVIONICS TECHNICIAN [address] [place] [address] PCP - General Family Practice 01/06/21 Robson Beck MD [address] [place] [address] Home Care Physician Cardiology 09/05/21 Man Mayer MD [address] [place] [address] Cardiology 09/14/21 Surveillance Camera Technician Relationship Specialty Start Date End Date Jordyn Beltran, BARREL TESTER AND DRAINER.AIRCRAFT AVIONICS TECHNICIAN [address] [place] [address] PCP - General Family Medicine 01/06/21 Robson Beck MD [address] [place] [address] Home Care Provider Cardiology 09/05/21 Man Mayer MD [address] [place] [phone] Cardiology 09/14/21 Surveillance Camera Technician Relationship Specialty Start Date End Date Jordyn Beltran, BARREL TESTER AND DRAINER.AIRCRAFT AVIONICS TECHNICIAN [address] [place] [address] PCP - General Family Medicine 01/06/21 Robson Beck MD [address] [place] [address] Home Care Provider Cardiology 09/05/21 Man Mayer MD [address] [place] [phone] (Fax) Cardiology 09/14/21 Surveillance Camera Technician Relationship Specialty Start Date End Date Jordyn Beltran, BARREL TESTER AND DRAINER.AIRCRAFT AVIONICS TECHNICIAN PCP - General Family Medicine 01/06/21 Robson Beck MD [address] [place] [address] Home Care Provider Cardiology 09/05/21 Man Mayer MD [address] [place] [address] Cardiology 09/14/21 Surveillance Camera Technician Relationship Specialty Start Date End Date Jordyn Beltran, BARREL TESTER AND DRAINER.AIRCRAFT AVIONICS TECHNICIAN [address] [place] [address] PCP - General Family Medicine 01/06/21 Robson Beck MD [address] [place] [address] Home Care Provider Cardiology 09/05/21 Man Mayer MD [address] [phone] Cardiology 09/14/21 Team Status: Active Member Role Status Dates Chasity Verma VIDEO PRODUCTION ASSISTANT, VIDEO PRODUCTION ASSISTANT-C Family Provider Active Chasity Verma VIDEO PRODUCTION ASSISTANT, VIDEO PRODUCTION ASSISTANT-C Primary Care Provider Active Team Status: Inactive Member Role Status Dates Chasity Verma VIDEO PRODUCTION ASSISTANT, VIDEO PRODUCTION ASSISTANT-C Primary Care Provider, Referring P rowilliander Active Jordyn Beltran VIDEO PRODUCTION ASSISTANT, VIDEO PRODUCTION ASSISTANT-C Attending Provider Active Team Status: Inactive Member Role Status Dates Chasity Verma VIDEO PRODUCTION ASSISTANT, VIDEO PRODUCTION ASSISTANT-C Primary Care Provider Active Jordyn Beltran VIDEO PRODUCTION ASSISTANT, VIDEO PRODUCTION ASSISTANT-C Attending Provider, Referring Provider Active Surveillance Camera Technician Relationship Specialty Start Date End Date [facility] [address] [place] [address] PCP - General 02/10/23 Surveillance Camera Technician Relationship Specialty Start Date End Date Jordyn Beltran, BARREL TESTER AND DRAINER.AIRCRAFT AVIONICS TECHNICIAN [address] [place] [address] PCP - General Family Medicine 01/06/21 Robson Beck MD [address] [place] [phone] Home Care Provider Cardiology 09/05/21 Man Mayer MD [address] [phone] Cardiology 09/14/21 Surveillance Camera Technician Relationship Specialty Start Date End Date Jordyn Beltran, BARREL TESTER AND DRAINER.AIRCRAFT AVIONICS TECHNICIAN [address] [facility] [address] [place] [address] PCP - General Family Medicine 01/06/21 Robson Beck MD [address] [place] [address] Home Care Provider Cardiology 09/05/21 Man Mayer MD [address] [facility] [address] [place] [phone] Cardiology 09/14/21 Surveillance Camera Technician Relationship Specialty Start Date End Date Jordyn Beltran, BARREL TESTER AND DRAINER.AIRCRAFT AVIONICS TECHNICIAN [address] [address] PCP - General Family Medicine 01/06/21 Robson Beck MD [address] [place] [phone] Home Care Provider Cardiology 09/05/21 Man Mayer MD [address] [facility] [address] [place] [address] Cardiology 09/14/21 Team Status: Active Member Role Status Dates No Primary Care Physician Primary Care Provider Active Team Status: Inactive Member Role Status Dates Jordyn Beltran NP VIDEO PRODUCTION ASSISTANT-C Attending Provider Active Start: March 06, 2024 End: March 06, 2024 Team Status: Inactive Member Role Status Dates Jordyn Beltran NP, VIDEO PRODUCTION ASSISTANT-C Attending Provider Active Start: April 24, 2024 End: April 24, 2024 Team Status: Inactive Member Role Status Dates Jordyn Beltran VIDEO PRODUCTION ASSISTANT, VIDEO PRODUCTION ASSISTANT-C Attending Provider Active Start: April 30, 2024 End: April 30, 2024 Team Status: Inactive Member Role Status Dates KASSANDRA Ragsdale Attending Provider Active Star t: May 08, 2024 End: May 08, 2024 Team Status: Inactive Member Role Status Dates Dr. Domingo Rosa MD Attending Provider Active S tart: May 08, 2024 End: May 08, 2024 Team Status: Inactive Member Role Status Dates KASSANDRA Ragsdale Attending Provider Active Star t: June 11, 2024 End: June 11, 2024 KASSANDRA Ragsdale Referring Provider Active Star t: June 11, 2024 End: June 11, 2024 No Primary Care Physician Primary Care Provider Active Start: June 11, 2024 End: June 11, 2024 Goals (unrecognized section and content) Goals may be documented in a n alternate sectionGoals may be documented in an alternate section FOR RECORDS PERTAINING TO PATIENTS WHO ARE OR HAVE BEEN ENROLLED IN A CHEMICAL DEPENDENCY/SUBSTANCEABUSE PROGRAM, SOME INFORMATION MAY BE OMITTED. This clinical summary was aggregated from multiple sources. Caution should be exercised in using it in the provision of clinical care. This summary normalizes information from multiple sources, and as a consequence, information in this document may materially change the coding, format and clinical context of patient data. In addition, data may be omitted in some cases. CLINICAL DECISIONS SHOULD BE BASED ON THE PRIMARY CLINICAL RECORDS. [employer] provides no warranty or guarantee of the accuracy or completeness of information in this document.
== END | disposition home or self-care (01) ==
PROVIDERS: Referring Provider Nurse Practitioner; Visit Provider Nurse Practitioner
DX: E03.9 Hypothyroidism, unspecified (principal)
CPT/HCPCS: 84443